=== PATIENT | male | born 1935 | race Caucasian/White ===

== ENCOUNTER → 2017-07-16 | Outpatient (CLI) | payer MEDICARE, BC ==
--- NOTE | 2017-07-16 14:11 | CT ---
EXAMINATION TYPE: CT abdomen pelvis wo con DATE OF EXAM: 07/16/2017 HISTORY: Prostate cancer CT DLP: 2186 mGycm. Automated Exposure Control for Dose Reduction was Utilized. TECHNIQUE: CT scan of the abdomen and pelvis is performed with oral but without IV contrast. COMPARISON: NONE FINDINGS: Within the limitations of a non-contrast study, the following observations are made. LUNG BASES: There is Bochdalek type diaphragmatic hernia right posterior lateral aspect seen best cor onal image 106. Superior to this there is right basilar linear scarring or atelectasis. There is part ial visualization of right-sided pacemaker wire terminating in right ventricle. There is coronary art robbin calcification is seen which is noted marker for coronary artery disease. Heart size is upper limi ts of normal. LIVER/GB: No significant abnormality is appreciated. PANCREAS: Mild fat replaced atrophy of pancreas is seen. SPLEEN: No significant abnormality is seen. ADRENALS: There is 1.7 x 1.3 cm low dense left adrenal nodule, Hounsfield units average -20. 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 KIDNEYS: There is retroaortic left renal vein which is normal variant. No renal stones or hydronephro sis is evident bilaterally. BOWEL: The oral contrast reaches level of the cecum. There is no suspicious small or large bowel dila tation there are sutures identified at level of sigmoid colon near axial image 64. There are some div erticula identified in the sigmoid colon. GENITAL ORGANS: Gold therapy seeds are seen in the prostate gland, superior one is noted along crepe laminator operator ior margin. Prostate gland is mildly prominent bulging on bladder base. No suspicious adjacent adenop athy is seen. LYMPH NODES: No greater than 1cm abdominal or pelvic lymph nodes are appreciated. OSSEOUS STRUCTURES: There is long segment surgical change in the lumbar spine with posterior interped icular rods and screws transfixing L2-S1 levels bilaterally. There is advanced disc space narrowing o r probable desired ossific fusion at these levels. Alignment is straightened in satisfactory. There i s moderate to severe multilevel anterior and lateral spurring superior to this. There is vacuum disc phenomenon with moderate disc space narrowing L1-L2 level and moderate to advanced disc space narrowi ng L5-S1 level. Posterior spinous process resection is present. No suspicious focal lytic or scleroti c lesions are clearly evident. OTHER: There is moderate to severe calcified plaque of the abdominal aorta extending into branch vess els. There is 2.0 x 1.1 cm oval calcification posterior to the liver of uncertain etiology presumed benign . IMPRESSION: No suspicious mass or adenopathy is seen to suggest metastatic disease.
--- NOTE | 2017-07-16 16:10 | NM ---
"EXAMINATION TYPE: NM bone scan whole body DATE OF EXAM: 07/16/2017 COMPARISON: CT abdomen pelvis same date HISTORY: Prostate carcinoma Delayed whole-body scanning was performed following the injection of 25.9 mCi Tc 99m MDP. Images acq uired 3 hours post injection. FINDINGS: Soft tissue uptake is normal. There is increased uptake at the upper lumbar spine which may correlate to L1-2 level. Uptake within the feet, ankles, knees, shoulders, sternoclavicular joints is likely degenerative. IMPRESSION: Uptake at the L1-2 level could be due to marked degenerative changes noted on CT, correlate to exclud e infection, discitis. Metastatic disease is not identified with certainty. A Yellow level critical message alert has been initiated for Allen Andujar MD via the [employer] | Critical Results System on 07/16/2017 4:07 PM. This message alert has been sent to Allen wilder MD via the preferences provided by the clinician for the receipt of Radiology Critical Findings. Vianey essage ID [id number]."
== END | disposition home or self-care (01) ==
LOC: RADNMMAIN 11:25
PROVIDERS: ATTEND Urology
DX: C61 Malignant neoplasm of prostate (principal)
CPT/HCPCS: 74176; 78306; A9503

== ENCOUNTER 2017-11-15 11:11 | Inpatient (IN) | payer MEDICARE, BC ==
[2017-11-15] MEDS ORDERED: ALBUTEROL NEBULIZED 2.5 MG/3 ML INHALATION STA (13:21)
[2017-11-15] MEDS ORDERED: IPRATROPIUM 0.5 MG/2.5 ML NEBU INHALATION STA (13:21)
[2017-11-15] MEDS ORDERED: DEXAMETHASONE SOD PHOSPHATE 10 MG/ML 1 ML VIAL IV STA (13:21)
--- NOTE | 2017-11-15 13:26 | ED ---
General Adult HPI - General Chief complaint: Weakness Stated complaint: Weakness, Hallucinting Time Seen by Provider: 11/15/17 13:07 Source: patient, family, RN notes reviewed, old records reviewed Mode of arrival: wheelchair Limitations: no limitations - History of Present Illness Initial comments: 82-year-old male with history of COPD, and congestive heart failure presenting with worsening cough and dyspnea. 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 According to the patient and his he's had worsening productive cough over the past 4-5 days. He did have fever yesterday. He is currently not on home oxygen. Denies central chest pain. According to patient's he had an episode yesterday of confusion which she attributes to his cough and difficulty breathing. Cough is been productive of white sputum. There is one episode of nausea and vomiting. No abdominal pain. - Related Data Home Medications Medication Instructions Recorded Confirmed Atorvastatin [Lipitor] 80 mg PO HS 07/09/14 11/15/17 Venlafaxine HCl [Effexor] 75 mg PO BID 07/09/14 11/15/17 Furosemide [Lasix] 40 mg PO DAILY 05/17/15 11/15/17 Ferrous Sulfate [Iron (65 MG 325 mg PO DAILY 08/06/15 11/15/17 Elemental)] Insulin Aspart [NovoLOG See Protocol SQ AC-TID 08/06/15 11/15/17 (formulary)] Insulin Glargine [Lantus] 40 unit SQ HS 08/06/15 11/15/17 Lisinopril [Zestril] 20 mg PO DAILY 08/06/15 11/15/17 Warfarin Sodium [Coumadin] 5 mg PO HS 08/06/15 11/15/17 amLODIPine [Norvasc] 5 mg PO BID 08/06/15 11/15/17 Albuterol Nebulized [Ventolin 2.5 mg INHALATION RT-QID 01/27/16 11/15/17 Nebulized] Budesonide-Formot 160-4.5 Mcg 2 puff INHALATION RT-BID 01/27/16 11/15/17 [Symbicort 160-4.5 Mcg Inhaler] Tamsulosin [Flomax] 0.4 mg PO DAILY 01/27/16 11/15/17 Bicalutamide [Casodex] 50 mg PO DAILY 11/15/17 11/15/17 Calcium/Vit D3 600mg/800iu 1 tab PO BID 11/15/17 11/15/17 Gabapentin [Neurontin] 300 mg PO BID 11/15/17 11/15/17 Allergies Allergy/AdvReac Type Severity Reaction Status Date / Time adhesive Allergy blisters, Verified 11/15/17 13:25 skin peels ibuprofen [From Motrin] Allergy Abdominal Verified 11/15/17 13:25 Pain Review of Systems ROS Statement: Those systems with pertinent positive or pertinent negative responses have been documented in the HPI. ROS Other: All systems not noted in ROS Statement are negative. Past Medical History Past Medical History: Cancer, COPD, Diabetes Mellitus, Hyperlipidemia, Prostate Disorder, Skin Disorder, Sleep Apnea/CPAP/BIPAP Additional Past Medical History / Comment(s): bowel perforation 2006, prostate CA, skin cancer spots removed from nose and scalp, hx migraines yr ago, see Dr Kendrick H&P, osteoarthritis, problem with kidney function 04/2015 per , uses a walker History of Any Multi-Drug Resistant Organisms: None Reported Past Surgical History: Back Surgery, Bowel Resection, Cardiac Ablation, Heart Catheterization, Orthopedic Surgery Additional Past Surgical History / Comment(s): back surgery x2 (has cage), bowel surgery for perforation with colostomy/colostomy later reversed, nasal surgery for polyps, otoniel cataracts, arthroscopy rt knee Past Anesthesia/Blood Transfusion Reactions: No Reported Reaction Past Psychological History: Depression Smoking Status: Former smoker Past Alcohol Use History: None Reported Past Drug Use History: None Reported - Past Family History Mother Family Medical History: Cancer Additional Family Medical History / Comment(s): brain Sister(s) Family Medical History: Cancer Additional Family Medical History / Comment(s): breast General Exam Limitations: no limitations General appearance: alert, in no apparent distress Head exam: Present: atraumatic, normocephalic Eye exam: Present: normal appearance, PERRL, EOMI ENT exam: Present: normal exam Neck exam: Present: normal inspection. Absent: tenderness, meningismus Respiratory exam: Present: respiratory distress, wheezes, rhonchi, decreased breath sounds Cardiovascular Exam: Present: regular rate, irregular rhythm GI/Abdominal exam: Present: soft. Absent: distended, tenderness Extremities exam: Present: normal inspection, normal capillary refill, pedal edema (trace) Neurological exam: Present: alert, oriented X3, CN II-XII intact. Absent: motor sensory deficit Psychiatric exam: Present: normal affect, normal mood Skin exam: Present: warm, dry, intact. Absent: cyanosis, diaphoretic Course Vital Signs 11/15/17 11/15/17 11/15/17 11:43 13:38 13:39 Temperature 98.8 F 99.3 F Pulse Rate 66 74 73 Respiratory 18 20 Rate Blood Pressure 149/84 137/64 O2 Sat by Pulse 96 100 Oximetry 11/15/17 14:05 Temperature Pulse Rate 76 Respiratory Rate Blood Pressure O2 Sat by Pulse Oximetry EKG Findings - EKG Comments: EKG Findings:: EKG: Wide QRS rhythm, left axis deviation, intraventricular block rate of 75, QRS duration 1:30, QTC 451. Rhythm is irregular, likely atrial fibrillation. Medical Decision Making - Medical Decision Making 82-year-old male presenting with worsening cough and dyspnea. On exam is minimal air entry, rhonchi and wheezing bilaterally. Chest x-rays obtained, negative for focal pneumonia or air space disease, normal white blood cell count , stable hemoglobin, INR is mildly supratherapeutic at 3.1, creatinine 1.5, troponin mildly elevated 0.042, with a BNP of 3120. Patient's symptoms likely related primarily to COPD, however there may be a component of congestive heart failure. He will be admitted for further treatment and evaluation. - Lab Data Result diagrams: 11/15/17 13:46 11/15/17 13:46 Lab Results 11/15/17 11/15/17 11/15/17 Range/Units 13:46 13:46 13:46 WBC 6.0 (3.8-10.6) k/uL RBC 4.25 L (4.30-5.90) m/uL Hgb 12.7 L (13.0-17.5) gm/dL Hct 38.2 L (39.0-53.0) % MCV 89.8 (80.0-100.0) fL MCH 30.0 (25.0-35.0) pg MCHC 33.4 (31.0-37.0) g/dL RDW 13.4 (11.5-15.5) % Plt Count 169 (150-450) k/uL Neutrophils % (Manual) 66 % Lymphocytes % (Manual) 13 % Monocytes % (Manual) 18 % Eosinophils % (Manual) 3 % Neutrophils # (Manual) 3.96 (1.3-7.7) k/uL Lymphocytes # (Manual) 0.78 L (1.0-4.8) k/uL Monocytes # (Manual) 1.08 H (0-1.0) k/uL Eosinophils # (Manual) 0.18 (0-0.7) k/uL Nucleated RBCs 0 (0-0) /100 WBC Manual Slide Review Performed Large Platelets Present Polychromasia Present PT (9.0-12.0) sec INR (<1.2) APTT (22.0-30.0) sec Sodium 135 L (137-145) mmol/L Potassium 4.3 (3.5-5.1) mmol/L Chloride 100 (98-107) mmol/L Carbon Dioxide 26 (22-30) mmol/L Anion Gap 9 mmol/L BUN 29 H (9-20) mg/dL Creatinine 1.50 H (0.66-1.25) mg/dL Est GFR (CKD-EPI)AfAm 50 (>60 ml/min/1.73 sqM) Est GFR (CKD-EPI)NonAf 44 (>60 ml/min/1.73 sqM) Glucose 136 H (74-99) mg/dL Plasma Lactic Acid Fabian (0.7-2.0) mmol/L Calcium 8.8 (8.4-10.2) mg/dL Magnesium 2.0 (1.6-2.3) mg/dL Total Bilirubin 0.6 (0.2-1.3) mg/dL AST 42 (17-59) U/L ALT 33 (21-72) U/L Alkaline Phosphatase 73 (38-126) U/L Total Creatine Kinase 407 H (55-170) U/L CK-MB (CK-2) 2.5 H* (0.0-2.4) ng/mL CK-MB (CK-2) Rel Index 0.6 Troponin I 0.042 H* (0.000-0.034) ng/mL NT-Pro-B Natriuret Pep pg/mL Total Protein 6.3 (6.3-8.2) g/dL Albumin 3.8 (3.5-5.0) g/dL Urine Color Urine Appearance (Clear) Urine pH (5.0-8.0) Ur Specific [place] (1.001-1.035) Urine Protein (Negative) Urine Glucose (UA) (Negative) Urine Ketones (Negative) Urine Blood (Negative) Urine Nitrite (Negative) Urine Bilirubin (Negative) Urine Urobilinogen (<2.0) mg/dL Ur Leukocyte Esterase (Negative) Urine WBC (0-5) /hpf Ur Squamous Epith Cells (0-4) /hpf Hyaline Casts (0-2) /lpf Urine Mucus (None) /hpf 11/15/17 11/15/17 11/15/17 Range/Units 13:46 13:46 13:46 WBC (3.8-10.6) k/uL RBC (4.30-5.90) m/uL Hgb (13.0-17.5) gm/dL Hct (39.0-53.0) % MCV (80.0-100.0) fL MCH (25.0-35.0) pg MCHC (31.0-37.0) g/dL RDW (11.5-15.5) % Plt Count (150-450) k/uL Neutrophils % (Manual) % Lymphocytes % (Manual) % Monocytes % (Manual) % Eosinophils % (Manual) % Neutrophils # (Manual) (1.3-7.7) k/uL Lymphocytes # (Manual) (1.0-4.8) k/uL Monocytes # (Manual) (0-1.0) k/uL Eosinophils # (Manual) (0-0.7) k/uL Nucleated RBCs (0-0) /100 WBC Manual Slide Review Large Platelets Polychromasia PT 27.5 H (9.0-12.0) sec INR 3.1 H (<1.2) APTT 46.9 H (22.0-30.0) sec Sodium (137-145) mmol/L Potassium (3.5-5.1) mmol/L Chloride (98-107) mmol/L Carbon Dioxide (22-30) mmol/L Anion Gap mmol/L BUN (9-20) mg/dL Creatinine (0.66-1.25) mg/dL Est GFR (CKD-EPI)AfAm (>60 ml/min/1.73 sqM) Est GFR (CKD-EPI)NonAf (>60 ml/min/1.73 sqM) Glucose (74-99) mg/dL Plasma Lactic Acid Fabian 1.6 (0.7-2.0) mmol/L Calcium (8.4-10.2) mg/dL Magnesium (1.6-2.3) mg/dL Total Bilirubin (0.2-1.3) mg/dL AST (17-59) U/L ALT (21-72) U/L Alkaline Phosphatase (38-126) U/L Total Creatine Kinase (55-170) U/L CK-MB (CK-2) (0.0-2.4) ng/mL CK-MB (CK-2) Rel Index Troponin I (0.000-0.034) ng/mL NT-Pro-B Natriuret Pep pg/mL Total Protein (6.3-8.2) g/dL Albumin (3.5-5.0) g/dL Urine Color Light Yellow Urine Appearance Clear (Clear) Urine pH 5.0 (5.0-8.0) Ur Specific [place] 1.009 (1.001-1.035) Urine Protein Negative (Negative) Urine Glucose (UA) Negative (Negative) Urine Ketones Negative (Negative) Urine Blood Negative (Negative) Urine Nitrite Negative (Negative) Urine Bilirubin Negative (Negative) Urine Urobilinogen <2.0 (<2.0) mg/dL Ur Leukocyte Esterase Small H (Negative) Urine WBC 1 (0-5) /hpf Ur Squamous Epith Cells 1 (0-4) /hpf Hyaline Casts 10 H (0-2) /lpf Urine Mucus Rare H (None) /hpf 11/15/17 Range/Units 13:46 WBC (3.8-10.6) k/uL RBC (4.30-5.90) m/uL Hgb (13.0-17.5) gm/dL Hct (39.0-53.0) % MCV (80.0-100.0) fL MCH (25.0-35.0) pg MCHC (31.0-37.0) g/dL RDW (11.5-15.5) % Plt Count (150-450) k/uL Neutrophils % (Manual) % Lymphocytes % (Manual) % Monocytes % (Manual) % Eosinophils % (Manual) % Neutrophils # (Manual) (1.3-7.7) k/uL Lymphocytes # (Manual) (1.0-4.8) k/uL Monocytes # (Manual) (0-1.0) k/uL Eosinophils # (Manual) (0-0.7) k/uL Nucleated RBCs (0-0) /100 WBC Manual Slide Review Large Platelets Polychromasia PT (9.0-12.0) sec INR (<1.2) APTT (22.0-30.0) sec Sodium (137-145) mmol/L Potassium (3.5-5.1) mmol/L Chloride (98-107) mmol/L Carbon Dioxide (22-30) mmol/L Anion Gap mmol/L BUN (9-20) mg/dL Creatinine (0.66-1.25) mg/dL Est GFR (CKD-EPI)AfAm (>60 ml/min/1.73 sqM) Est GFR (CKD-EPI)NonAf (>60 ml/min/1.73 sqM) Glucose (74-99) mg/dL Plasma Lactic Acid Fabian (0.7-2.0) mmol/L Calcium (8.4-10.2) mg/dL Magnesium (1.6-2.3) mg/dL Total Bilirubin (0.2-1.3) mg/dL AST (17-59) U/L ALT (21-72) U/L Alkaline Phosphatase (38-126) U/L Total Creatine Kinase (55-170) U/L CK-MB (CK-2) (0.0-2.4) ng/mL CK-MB (CK-2) Rel Index Troponin I (0.000-0.034) ng/mL NT-Pro-B Natriuret Pep 3120 pg/mL Total Protein (6.3-8.2) g/dL Albumin (3.5-5.0) g/dL Urine Color Urine Appearance (Clear) Urine pH (5.0-8.0) Ur Specific [place] (1.001-1.035) Urine Protein (Negative) Urine Glucose (UA) (Negative) Urine Ketones (Negative) Urine Blood (Negative) Urine Nitrite (Negative) Urine Bilirubin (Negative) Urine Urobilinogen (<2.0) mg/dL Ur Leukocyte Esterase (Negative) Urine WBC (0-5) /hpf Ur Squamous Epith Cells (0-4) /hpf Hyaline Casts (0-2) /lpf Urine Mucus (None) /hpf Disposition Clinical Impression: Atrial fibrillation, Acute exacerbation of chronic obstructive airways disease Disposition: ADMITTED IP TO THIS HOSP Condition: Stable Is patient prescribed a controlled substance at d/c from ED?: No Referrals: [facility],Clinic [Primary Care Provider] - 1-2 days Decision to Admit Reason: Admit from EC Decision Date: 11/15/17 Decision Time: 15:20
[2017-11-15 14:07] LABS: Appearance,Urine Clear (Clear); Bilirubin,Urine Negative (Negative); Blood,Urine Negative (Negative); Color,Urine Light Yellow; Glucose,Urine (UA) Negative (Negative); Hyaline Casts,Urine 10 /lpf (0-2); Ketones,Urine Negative (Negative); Leukocyte Esterase,Urine Small (Negative); Mucus,Urine Rare /hpf; Nitrite,Urine Negative (Negative); Protein,Urine Negative (Negative); Specific Gravity,Urine 1.009 (1.001-1.035); Squamous Epithelial Cell,Urine 1 /hpf (0-4); Urobilinogen,Urine <2.0 mg/dL (<2.0); WBC,Urine 1 /hpf (0-5)
[2017-11-15 14:08] LABS: INR 3.1 (<1.2); Partial Thromboplastin Time 46.9 sec (22.0-30.0); Prothrombin Time 27.5 sec (9.0-12.0)
[2017-11-15 14:09] LABS: HCT 38.2 % (39.0-53.0); HGB 12.7 gm/dL (13.0-17.5); MCHC 33.4 g/dL (31.0-37.0); MCV 89.8 fL (80.0-100.0); Mean Platelet Volume 8.2; Platelet Count 169 k/uL (150-450); RBC 4.25 m/uL (4.30-5.90); RDW 13.4 % (11.5-15.5)
[2017-11-15 14:10] LABS: Albumin 3.8 g/dL (3.5-5.0); Calcium 8.8 mg/dL (8.4-10.2); Potassium 4.3 mmol/L (3.5-5.1); Total Bilirubin 0.6 mg/dL (0.2-1.3); Total Protein 6.3 g/dL (6.3-8.2)
--- NOTE | 2017-11-15 14:41 | XR ---
EXAMINATION TYPE: XR chest 2V DATE OF EXAM: 11/15/2017 COMPARISON: 08/07/2015 HISTORY: Altered mental status, generalized weakness and fever. History of COPD. TECHNIQUE: Frontal and lateral views of the chest are obtained. FINDINGS: There is no focal air space opacity, pleural effusion, or pneumothorax seen. There is a si ngle lead cardiac device with mild cardiac enlargement as seen on the prior exam. The osseous struc tures are intact. Multilevel mild to moderate degenerative changes of the thoracic spine are noted. IMPRESSION: No acute cardiopulmonary process.
[2017-11-15 14:50] LABS: Eosinophils # (M) 0.18 k/uL (0-0.7); Lymphocytes # (M) 0.78 k/uL (1.0-4.8); Monocytes # (M) 1.08 k/uL (0-1.0); Neutrophils # (M) 3.96 k/uL (1.3-7.7); Neutrophils % (M) 66 %; Nucleated Red Blood Cells 0 /100 WBC (0-0); Total Cells Counted 100
[2017-11-15 14:51] LABS: Large Platelets Present; Polychromasia Present
[2017-11-15 15:14] LABS: Creatine Kinase MB 2.5 ng/mL (0.0-2.4); Troponin I 0.042 ng/mL (0.000-0.034)
[2017-11-15] MEDS ORDERED: NALOXONE 0.4 MG/ML 1 ML VIAL IV PRN (15:54)
[2017-11-15] MEDS ORDERED: ALBUTEROL NEBULIZED 2.5 MG/3 ML INHALATION PRN (15:55)
[2017-11-15] MEDS ORDERED: AZITHROMYCIN 500 MG TAB PO STA (16:00)
[2017-11-15] MEDS ORDERED: ALBUTEROL NEBULIZED 2.5 MG/3 ML INHALATION SCH (16:00)
[2017-11-15] MEDS ORDERED: IPRATROPIUM-ALBUTEROL 3 ML NEB INHALATION PRN (16:40)
[2017-11-15] MEDS ORDERED: ALPRAZolam 0.25 MG TAB PO PRN (16:41)
[2017-11-15] MEDS ORDERED: ACETAMINOPHEN TAB 500 MG TAB PO PRN (16:41)
[2017-11-15 16:57] LABS: Glucose,Whole Blood 156 mg/dL (75-99)
[2017-11-15] MEDS ORDERED: FUROSEMIDE 10 MG/ML 2 ML VIAL IV ONE (17:00)
[2017-11-15] MEDS: INSULIN ASPART 100 UNIT/ML 1 ML 10 ML VIAL SQ SCH ×3 (17:04→21:13)
--- NOTE | 2017-11-15 17:52 | HP ---
HISTORY AND PHYSICAL CHIEF COMPLAINT: Shortness of breath. HISTORY OF PRESENT ILLNESS: This 82-year-old gentleman with a past medical history of multiple medical problems including COPD, history of diabetes, hyperlipidemia, history of sleep apnea, bowel perforation, history of prostate cancer being followed by Dr. Britt in the outpatient setting is complaining of shortness of breath over the past several days. Initially patient had cough since last week, which was rather productive and subsequently yesterday the patient fever and because of increasing difficulty, the patient came to [facility] and admitted of further evaluation and treatment. There is no headache, loss of conscious, seizures. The patient was currently not on home O2. The patient also feeling slightly drowsy at this time. The sputum was white in color. The patient admitted for evaluation and treatment. A chest x-ray which was reviewed personally showed no acute abnormalities. Minimal fluid overload suspected. PAST MEDICAL HISTORY: History of COPD, diabetes, hyperlipidemia, history of sleep apnea, bowel perforation, prostate cancer, back surgery. MEDICATIONS: Home medications are at this time reviewed and include: 1. Norvasc 5 mg p.o. b.i.d. 2. Coumadin 5 mg q.h.s. 3. Effexor 75 mg p.o. b.i.d. 4. Flomax 0.4. 5. Zestril 20 mg daily. 6. Lantus 40 units subcu q.h.s. 7. NovoLog t.i.d. 8. Neurontin 300 mg b.i.d. 9. Lasix 40 mg daily. 10.Iron 320 mg p.o. daily. 11.Calcium with vitamin D 1 tab p.o. b.i.d. 12.Symbicort 160/4.5 two puffs b.i.d.\. 13.Casodex 50 mg p.o. daily. 14.Lipitor 80 mg q.h.s. 15.Ventolin nebulized 2.5 q.i.d. ALLERGIES: IBUPROFEN. FAMILY HISTORY: History of brain cancer in the family. SOCIAL HISTORY: Previous history of smoking. No history of current smoking or alcohol intake. REVIEW OF SYSTEMS: Could not be taken. The patient is slightly drowsy. PHYSICAL EXAM: Pulse is 68, blood pressure 120/69, respiration 20, temperature 98.7, pulse ox 98% 2 L. Breathing efforts are increased. HEENT: Conjunctivae normal. Oral mucosa moist. NECK: No jugular venous distention. No carotid bruit. No lymph node enlargement. CARDIOVASCULAR: S1, S2. No S3, no S4. RESPIRATORY: Breath sounds diminished in the bases. Bilateral scattered rhonchi and crackles. Expiratory wheezing and prolonged respiration also present. ABDOMEN: Soft, nontender. No mass palpable. LEGS: No edema, no swelling. NERVOUS SYSTEM: Higher functions as mentioned earlier. Moves all four limbs. No focal motor deficits. LYMPHATICS: No lymphadenopathy in the neck, axillae, groin. SKIN: No ulcer, rash, bleeding. LABS: WBC 6, hemoglobin 12.7. INR 3.1. Sodium 135, creatinine is 1.50. Troponin 0.042. BNP is 3120. ASSESSMENT: 1. Chronic obstructive pulmonary disease acute exacerbation with acute tracheobronchitis without any michelle evidence of pneumonia. 2. Rule out congestive heart failure acute exacerbation. 3. Increased creatinine with chronic kidney disease stage III. 4. Sleep apnea on BiPAP at home. 5. Hyponatremia. 6. History of chronic obstructive pulmonary disease. 7. Diabetes type 2. 8. Hyperlipidemia. 9. History of sleep apnea. 10.Bowel perforation. 11.History of prostate cancer. 12.History of migraine. 13.History of degenerative joint disease. 14.History of cardiac ablation. 15.History of depression. 16.History of nicotine dependence. 17.Chronic atrial fibrillation. RECOMMENDATION AND DISCUSSION: This 82-year-old gentleman who presented with multiple complex medical issues, we will monitor the patient closely. Continue the current management and symptomatic treatment. Will optimize bronchodilator treatment, IV steroids and also I would also recommend to monitor blood sugars closely. I would also recommend IV Lasix as well. We will monitor the PT/INR. Hold Coumadin if INR is more than 3. Otherwise guarded prognosis because of multiple complex medical issues. Further recommendations to follow. See orders. Will consult Dr. Quiroga also. MMODL / IJN: [id number] / MTDD
[2017-11-15] MEDS: methylPREDNISolone SOD SUCCI 125 MG/2 ML VIAL IV SCH ×2 (18:44→22:51)
[2017-11-15] MEDS: IPRATROPIUM-ALBUTEROL 3 ML NEB INHALATION SCH (20:38)
[2017-11-15] MEDS: BUDESONIDE 1 MG/2 ML NEBU INHALATION SCH (20:38)
[2017-11-15] MEDS: FORMOTEROL FUMARATE 20 MCG/2 ML NEBU INHALATION SCH (20:38)
[2017-11-15] MEDS: cefTRIAXone IN SWFI 1,000 MG/10 ML SYRINGE IVP SCH (20:54)
[2017-11-15] MEDS ORDERED: INSULIN DETEMIR 100 UNIT/ML 10 ML VIAL SQ SCH (21:00)
[2017-11-15 21:02] LABS: Glucose,Whole Blood 230 mg/dL (75-99)
[2017-11-15] MEDS: amLODIPine 5 MG TAB PO SCH (21:12)
[2017-11-15] MEDS: ATORVASTATIN 80 MG TAB PO SCH (21:12)
[2017-11-15] MEDS: GABAPENTIN 300 MG CAP PO SCH (21:12)
[2017-11-15] MEDS: CALCIUM CARB-VIT D 500MG-200UN 1 EACH TAB PO SCH (21:12)
[2017-11-15] MEDS: WARFARIN 5 MG TAB PO SCH (21:13)
[2017-11-15] MEDS: MELATONIN 3 MG TABLET PO SCH (21:13)
[2017-11-15 21:22] LABS: Creatine Kinase MB 2.3 ng/mL (0.0-2.4)
[2017-11-15 21:26] LABS: Troponin I 0.037 ng/mL (0.000-0.034)
[2017-11-15] MEDS: VENLAFAXINE HCL 75 MG TAB PO SCH (21:43)
[2017-11-16 02:54] LABS: Creatine Kinase MB 2.2 ng/mL (0.0-2.4); Troponin I 0.029 ng/mL (0.000-0.034)
[2017-11-16 04:28] LABS: Hemoglobin A1C 7.1 % (4.0-6.0)
[2017-11-16 06:10] LABS: Glucose,Whole Blood 313 mg/dL (75-99)
[2017-11-16 06:49] LABS: Basophils % (A) 0 %; Eosinophils % (A) 0 %; HCT 38.7 % (39.0-53.0); HGB 12.5 gm/dL (13.0-17.5); Lymphocytes # (A) 0.6 k/uL (1.0-4.8); Lymphocytes % (A) 14 %; MCH 29.2 pg (25.0-35.0); MCHC 32.4 g/dL (31.0-37.0); MCV 90.3 fL (80.0-100.0); Mean Platelet Volume 8.7; Monocytes # (A) 0.1 k/uL (0-1.0); Monocytes % (A) 3 %; Neutrophils # (A) 3.5 k/uL (1.3-7.7); Neutrophils % (A) 81 %; Platelet Count 191 k/uL (150-450); RBC 4.29 m/uL (4.30-5.90); RDW 13.2 % (11.5-15.5); WBC 4.4 k/uL (3.8-10.6)
[2017-11-16 07:07] LABS: INR 3.3 (<1.2); Prothrombin Time 29.2 sec (9.0-12.0)
[2017-11-16] MEDS: PANTOPRAZOLE 40 MG TABLET PO SCH (07:07)
[2017-11-16] MEDS: INSULIN ASPART 100 UNIT/ML 1 ML 10 ML VIAL SQ SCH ×7 (07:07→20:44)
[2017-11-16 07:11] LABS: Calcium 8.8 mg/dL (8.4-10.2); Potassium 4.5 mmol/L (3.5-5.1)
[2017-11-16] MEDS ORDERED: INSULIN DETEMIR 100 UNIT/ML 10 ML VIAL SQ SCH (07:19)
[2017-11-16] MEDS: methylPREDNISolone SOD SUCCI 125 MG/2 ML VIAL IV SCH ×3 (08:13→22:49)
[2017-11-16] MEDS: MULTIVITAMINS, THERA 1 EACH TAB PO SCH (08:13)
[2017-11-16] MEDS: GABAPENTIN 300 MG CAP PO SCH ×2 (08:13→20:45)
[2017-11-16] MEDS: LISINOPRIL 20 MG TAB PO SCH (08:13)
[2017-11-16] MEDS: CALCIUM CARB-VIT D 500MG-200UN 1 EACH TAB PO SCH ×2 (08:13→20:45)
[2017-11-16] MEDS: TAMSULOSIN 0.4 MG CAP.ER.24H PO SCH (08:13)
[2017-11-16] MEDS: VENLAFAXINE HCL 75 MG TAB PO SCH ×2 (08:13→20:45)
[2017-11-16] MEDS: BICALUTAMIDE 50 MG TAB PO SCH (08:13)
[2017-11-16] MEDS: amLODIPine 5 MG TAB PO SCH ×2 (08:13→20:44)
[2017-11-16] MEDS: FERROUS SULFATE 325 MG TAB PO SCH (08:13)
[2017-11-16] MEDS: AZITHROMYCIN 500 MG TAB PO SCH (08:13)
[2017-11-16] MEDS: FORMOTEROL FUMARATE 20 MCG/2 ML NEBU INHALATION SCH ×2 (08:14→20:39)
[2017-11-16] MEDS: IPRATROPIUM-ALBUTEROL 3 ML NEB INHALATION SCH ×4 (08:14→20:39)
[2017-11-16] MEDS: BUDESONIDE 1 MG/2 ML NEBU INHALATION SCH ×2 (08:14→20:39)
[2017-11-16] MEDS ORDERED: FUROSEMIDE 10 MG/ML 4 ML VIAL IV SCH (09:00)
--- NOTE | 2017-11-16 11:24 | P.CNPUL ---
History of Present Illness Consult date: 11/16/17 Requesting physician: Pratibha Rivero Reason for consult: dyspnea Chief complaint: Shortness of breath, cough, congestion History of present illness: This is a very pleasant 82-year-old gentleman who follows with Dr. Britt in the [facility] as his primary care providers. He has a history of hypertension, congestive heart failure, hyperlipidemia, diabetes mellitus, Hussein's palsy, atrial fibrillation status post permanent pacemaker implantation anticoagulated with warfarin, prostate cancer. He also has a history of obstructive sleep apnea utilizing the BiPAP machine 01/04 and chronic obstructive pulmonary disease with an FEV1 value of 79% of predicted and is on Symbicort and albuterol and he follows with Dr. Roth in our office for the same. He was seen there yesterday with worsening shortness of breath, fever, diarrhea and confusion. He was referred to the emergency room. His chest x-ray showed no acute cardiopulmonary process. Labs revealed the BBC 4.4. Hemoglobin 12.5. INR 3.3. Creatinine 1.50. BNP 3120. Troponin 0.037, 0.029. He is seen today in consultation on the selective care unit. He is awake and alert in no acute distress. He is continuing with a loose nonproductive cough. No recent fever or chills. He is maintaining good O2 saturations in the upper 90s on 2 L/m per nasal cannula. He's been hemodynamically stable. Utilizing his home BiPAP. He 's been initiated on antibiotics in the form of ceftriaxone and azithromycin. Review of Systems Constitutional: Reports chills, Reports poor appetite, Reports weakness Eyes: denies blurred vision, denies decreased vision Ears: bilateral: decreased hearing Ears, nose, mouth and throat: Reports nasal congestion Cardiovascular: Reports decreased exercise tolerance, Reports dyspnea on exertion, Reports irregular heart beat, Reports shortness of breath Respiratory: Reports congestion, Reports cough, Reports dyspnea, Reports sleep apnea Gastrointestinal: Denies abdominal pain, Denies diarrhea, Denies nausea, Denies vomiting Genitourinary: Reports as per HPI Musculoskeletal: Denies myalgias Integumentary: Denies pruritus, Denies rash Neurological: Reports as per HPI, Reports change in mentation, Denies numbness, Denies weakness Psychiatric: Denies anxiety, Denies depression Endocrine: Denies fatigue, Denies weight change Hematologic/Lymphatic: Reports as per HPI Allergic/Immunologic: Reports as per HPI Past Medical History Past Medical History: Atrial Fibrillation, Cancer, COPD, Diabetes Mellitus, Hyperlipidemia, Pneumonia, Prostate Disorder, Skin Disorder, Sleep Apnea/CPAP/ BIPAP Additional Past Medical History / Comment(s): bowel perforation 2006, prostate CA, skin cancer spots removed from nose and scalp, hx migraines yr ago, atrial fibrillation status post pacemaker implantation, osteoarthritis, past problem with kidney function , pt state he had a pne vaccine but not sure of date, 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 History of Any Multi-Drug Resistant Organisms: None Reported Past Surgical History: Back Surgery, Bowel Resection, Cardiac Ablation, Heart Catheterization, Orthopedic Surgery, Pacemaker Additional Past Surgical History / Comment(s): back surgery x2 (has cage), bowel surgery for perforation with colostomy/colostomy later reversed, nasal surgery for polyps, otoniel cataracts, arthroscopy rt knee Past Anesthesia/Blood Transfusion Reactions: No Reported Reaction Type of Cardiac Device: Permanent Pacemaker Device Placement Date:: 2013 Smoking Status: Former smoker - Past Family History Mother Family Medical History: Cancer Additional Family Medical History / Comment(s): brain Sister(s) Family Medical History: Cancer Additional Family Medical History / Comment(s): breast Medications and Allergies Home Medications Medication Instructions Recorded Confirmed Type Atorvastatin [Lipitor] 80 mg PO HS 07/09/14 11/15/17 History Venlafaxine HCl [Effexor] 75 mg PO BID 07/09/14 11/15/17 History Furosemide [Lasix] 40 mg PO DAILY 05/17/15 11/15/17 History Ferrous Sulfate [Iron (65 MG 325 mg PO DAILY 08/06/15 11/15/17 History Elemental)] Insulin Aspart [NovoLOG See Protocol SQ AC-TID 08/06/15 11/15/17 History (formulary)] Insulin Glargine [Lantus] 40 unit SQ HS 08/06/15 11/15/17 History Lisinopril [Zestril] 20 mg PO DAILY 08/06/15 11/15/17 History Warfarin Sodium [Coumadin] 5 mg PO HS 08/06/15 11/15/17 History amLODIPine [Norvasc] 5 mg PO BID 08/06/15 11/15/17 History Albuterol Nebulized [Ventolin 2.5 mg INHALATION RT-QID 01/27/16 11/15/17 History Nebulized] Budesonide-Formot 160-4.5 Mcg 2 puff INHALATION RT-BID 01/27/16 11/15/17 History [Symbicort 160-4.5 Mcg Inhaler] Tamsulosin [Flomax] 0.4 mg PO DAILY 01/27/16 11/15/17 History Bicalutamide [Casodex] 50 mg PO DAILY 11/15/17 11/15/17 History Calcium/Vit D3 600mg/800iu 1 tab PO BID 11/15/17 11/15/17 History Gabapentin [Neurontin] 300 mg PO BID 11/15/17 11/15/17 History Allergies Allergy/AdvReac Type Severity Reaction Status Date / Time adhesive Allergy blisters, Verified 11/15/17 13:25 skin peels ibuprofen [From Motrin] Allergy Abdominal Verified 11/15/17 13:25 Pain Physical Exam Vitals: Vital Signs Temp Pulse Pulse Resp BP BP Pulse Ox 11/16/17 08:34 66 18 11/16/17 08:24 68 18 11/16/17 08:14 68 18 98 11/16/17 08:13 96.9 F L 62 20 132/59 98 11/16/17 04:00 97.6 F 60 18 126/71 97 11/16/17 00:00 97.0 F L 68 18 119/62 98 11/15/17 21:02 64 11/15/17 20:50 62 11/15/17 20:49 62 11/15/17 20:40 62 11/15/17 20:00 97.7 F 68 18 138/70 96 11/15/17 18:40 97.6 F 59 L 18 135/49 94 L 11/15/17 18:21 98.0 F 89 16 103/49 96 11/15/17 16:27 98.7 F 68 20 127/69 98 11/15/17 14:05 76 11/15/17 13:39 73 11/15/17 13:38 99.3 F 74 20 137/64 100 11/15/17 11:43 98.8 F 66 18 149/84 96 Intake and Output 11/15/17 11/16/17 11/16/17 22:59 06:59 14:59 Intake Total 120 10 120 Balance 120 10 120 Intake: IV 10 0.9 10 Oral 120 120 Other: Voiding Method Toilet Toilet Toilet Weight 102.5 kg - Constitutional General appearance: cooperative, mild distress, morbidly obese - EENT Eyes: EOMI, PERRLA ENT: hard of hearing Ears: bilateral: normal - Neck Neck: normal ROM Carotids: bilateral: upstroke normal Thyroid: bilateral: normal size - Respiratory Respiratory: bilateral: rhonchi, wheezing - Cardiovascular Rhythm: irregularly irregular Heart sounds: normal: S1, S2 - Gastrointestinal General gastrointestinal: normal bowel sounds - Integumentary Integumentary: normal turgor - Neurologic Neurologic: CNII-XII intact - Musculoskeletal Musculoskeletal: generalized weakness - Psychiatric Psychiatric: A&O x's 3, appropriate affect, intact judgment & insight Results - Laboratory Findings CBC and BMP: 11/16/17 06:09 11/16/17 06:09 PT/INR, D-dimer PT 29.2 sec (9.0-12.0) H 11/16/17 06:09 INR 3.3 (<1.2) H 11/16/17 06:09 Abnormal lab findings: Abnormal Labs 11/15/17 11/15/17 11/15/17 13:46 13:46 13:46 RBC 4.25 L Hgb 12.7 L Hct 38.2 L Lymphocytes # Lymphocytes # (Manual) 0.78 L Monocytes # (Manual) 1.08 H PT INR APTT Sodium 135 L BUN 29 H Creatinine 1.50 H Glucose 136 H POC Glucose (mg/dL) Hemoglobin A1c Total Creatine Kinase 407 H CK-MB (CK-2) 2.5 H* Troponin I 0.042 H* Ur Leukocyte Esterase Hyaline Casts Urine Mucus 11/15/17 11/15/17 11/15/17 13:46 13:46 16:53 RBC Hgb Hct Lymphocytes # Lymphocytes # (Manual) Monocytes # (Manual) PT 27.5 H INR 3.1 H APTT 46.9 H Sodium BUN Creatinine Glucose POC Glucose (mg/dL) 156 H Hemoglobin A1c Total Creatine Kinase CK-MB (CK-2) Troponin I Ur Leukocyte Esterase Small H Hyaline Casts 10 H Urine Mucus Rare H 11/15/17 11/15/17 11/15/17 20:13 20:13 21:01 RBC Hgb Hct Lymphocytes # Lymphocytes # (Manual) Monocytes # (Manual) PT INR APTT Sodium BUN Creatinine Glucose POC Glucose (mg/dL) 230 H Hemoglobin A1c 7.1 H Total Creatine Kinase 402 H CK-MB (CK-2) Troponin I 0.037 H* Ur Leukocyte Esterase Hyaline Casts Urine Mucus 11/16/17 11/16/17 11/16/17 01:53 06:09 06:09 RBC 4.29 L Hgb 12.5 L Hct 38.7 L Lymphocytes # 0.6 L Lymphocytes # (Manual) Monocytes # (Manual) PT 29.2 H INR 3.3 H APTT Sodium BUN Creatinine Glucose POC Glucose (mg/dL) Hemoglobin A1c Total Creatine Kinase 322 H CK-MB (CK-2) Troponin I Ur Leukocyte Esterase Hyaline Casts Urine Mucus 11/16/17 11/16/17 06:09 06:09 RBC Hgb Hct Lymphocytes # Lymphocytes # (Manual) Monocytes # (Manual) PT INR APTT Sodium 135 L BUN 38 H Creatinine 1.50 H Glucose 318 H POC Glucose (mg/dL) 313 H Hemoglobin A1c Total Creatine Kinase CK-MB (CK-2) Troponin I Ur Leukocyte Esterase Hyaline Casts Urine Mucus - Diagnostic Findings Chest x-ray: image reviewed Assessment and Plan Assessment: Impression: #1 Acute hypoxic respiratory failure secondary to an acute exacerbation of chronic obstructive pulmonary disease, complicated by purulent tracheobronchitis and possible early pneumonia, suspect acute exacerbation of diastolic congestive heart failure with previous preserved left ventricular systolic function ejection fraction 60-65%. #2 Obstructive sleep apnea utilizing home BiPAP. #3 Acute on chronic renal failure. #4 Atrial fibrillation status post permanent pacemaker implantation, anticoagulated with warfarin. #5 Hypertension. #6 Hyperlipidemia. #7 Diabetes mellitus, with steroid-induced hyperglycemia. #8 History of prostate cancer. #9 History of bowel resection. Plan: The patient was seen and evaluated by Dr. Quiroga. Chest x-ray and labs were reviewed. No clear evidence of pneumonia at this time. Possible early pneumonia versus COPD exacerbation with purulent tracheobronchitis. We'll continue with his current medications including antibiotics in the form of ceftriaxone and azithromycin, IV Solu-Medrol, bronchodilators. Anticoagulated with warfarin. Protonix for GI prophylaxis. We will increase his activity as tolerated. We will continue to follow and make further recommendations based on his clinical status. I, the cosigning physician, performed a history & physical examination of the patient. Lungs sounds with few scattered rhonchi, bilateral end expiratory wheeze. Maintaining good O2 saturations in the 90s on 2 L/m per nasal cannula. I discussed the assessment and plan of care with my nurse practitioner, Sanjana Ruiz. I attest to the above consultation as dictated by her. Time with Patient: Greater than 30
[2017-11-16 11:29] VITALS: BMI 33.3
--- NOTE | 2017-11-16 11:53 | CONS ---
CONSULTATION Mr. Salvador is an 82-year-old male with a history of atrial fibrillation, history of mild to moderate coronary artery disease by cardiac catheterization in 2009, history of chronic obstructive lung disease, who presented with symptoms of progressive dyspnea. He has been having cough and dyspnea for the last few days and because of that, came into the emergency room and subsequently admitted. He denies any chest pain. He denies any dizziness, palpitation He denies any PND nor orthopnea. He has underwent permanent pacemaker implantation in July 2015 and his left ventricular systolic function in the past was normal. He has underwent the cardiac catheterization as noted in 2009, but he had no evidence of high-grade stenosis and his left ventricular systolic function has been preserved in the past, but he had evidence of pulmonary hypertension. His most recent myocardial perfusion imaging was in 2013 and at that time there was no evidence of significant obstructive coronary disease. He has a history of pulmonary fibrosis as well as obstructive sleep apnea. He denies any peripheral edema, no clear PND. No orthopnea. No syncope. MEDICATION: At home includes amlodipine 5 mg twice a day, Coumadin, Effexor, Flomax, Zestril 20 mg daily, insulin, gabapentin, Lasix 40 mg daily, iron, Symbicort, Casodex, Lipitor 80 mg daily, and Ventolin. REVIEW OF SYSTEMS: RESPIRATORY SYSTEM: He has dyspnea on exertion, history of chronic obstructive lung disease. GI SYSTEM: No recent GI bleed. No peptic ulcer disease. SYSTEM: He had hematuria that resolved. NERVOUS SYSTEM: No history of stroke or seizure. According to the , he had a low- grade fever at home on Wednesday. PHYSICAL EXAMINATION: He is a 82-year-old male, alert, oriented, in no apparent distress. Blood pressure 132/59 with a heart rate in the 60s. HEAD: Normocephalic. EYES: Sclerae nonicteric. NECK: Good upstroke, no bruit, no chest tension. LUNGS: With decreased air exchange bilaterally with a few scattered rhonchi, no wheezes. HEART: Irregular, irregular. S1, S2. No S3 with a systolic murmur, ejection type heard at the base. No diastolic murmur, no rub. ABDOMEN: Soft, nontender, obese. Positive bowel sounds, no organomegaly. EXTREMITIES: No significant edema. LAB DATA: Revealed a BUN and creatinine of 35 and 1.5, which has worsened since 2016, which is the last lab tests I have. Hemoglobin of 12.5. INR of 3.1. His troponin 0.042, 0.037, 0.029. His NT proBNP is 3120. His EKG revealed atrial fibrillation with evidence of paced rhythm and nonspecific ST-T wave changes. His chest x-ray revealed no acute infiltrate. IMPRESSION: 1. Exacerbation of chronic obstructive pulmonary disease in a patient with known history of chronic obstructive lung disease and pulmonary fibrosis. 2. History of persistent atrial fibrillation, anticoagulated. 3. Status post permanent pacemaker implantation. 4. Mild troponin elevation most likely a present type 2 event. 5. Mild elevation of the NT proBNP with no evidence of congestive heart failure. 6. Renal failure, worsened compared to 2016. 7. History of hyperlipidemia. RECOMMENDATION: From the cardiac standpoint, I do not believe we are dealing with an acute coronary artery syndrome. Patient has been started on antibiotics and treatment for his COPD. I will stop his IV Lasix. I will follow his renal function. Will continue anticoagulation. I will obtain echocardiogram with Doppler to further evaluate his cardiac status and depending on his progress, further recommendation will be made. Thank you for this consult. Will follow with you. MMODL / IJN: [id number] /
[2017-11-16 11:59] LABS: Glucose,Whole Blood 164 mg/dL (75-99)
--- NOTE | 2017-11-16 13:29 | PN ---
PROGRESS NOTE DATE OF SERVICE: 11/16/2017 This 82-year-old gentleman who was admitted with COPD acute exacerbation with acute purulent tracheobronchitis without any michelle evidence of pneumonia is being closely monitored. The patient has less significant shortness of breath and cough. Cardiology and Pulmonology are following the patient closely. The patient is on broad-spectrum IV antibiotics. The troponin is 0.037. 0.029 and BNP is 3120. The chest x-ray which was reviewed personally by me showed evidence of COPD. PAST MEDICAL HISTORY: Reviewed. REVIEW OF SYSTEMS: CARDIOVASCULAR: As mentioned earlier. RESPIRATORY: As mentioned earlier. GI: No nausea. : No dysuria. NERVOUS SYSTEM: No numbness or weakness. MEDICATIONS: Current medications are: 1. Tylenol 500 mg q.6 p.r.n. 2. DuoNeb q.i.d. and p.r.n. 3. Xanax 0.25 t.i.d. 4. Norvasc 5 mg p.o. b.i.d. 5. Lipitor 80 mg at bedtime. 6. Zithromax 500 mg p.o. daily. 7. Casodex 50 mg p.o. daily. 8. Pulmicort 1 mg b.i.d. 9. Os-Salvador with vitamin D 1 p.o. b.i.d. 10.Rocephin 1 gram daily. 11.Iron sulfate 325 mg daily. 12.Perforomist 20 mcg b.i.d. 13.Lasix 40 mg p.o. daily. 14.Neurontin 300 mg p.o. b.i.d. 15.NovoLog 10 units a.c. t.i.d. 16.NovoLog to scale. 17.Levemir 40 units subcutaneously at bedtime. 18.Zestril 20 mg p.o. daily. 19.Melatonin 3 mg at bedtime. 20.Solu-Medrol 60 IV q.8. 21.Multivitamins. 22.Narcan p.r.n. 23.Protonix 40 mg daily. 24.Flomax 0.4. 25.Effexor XR 75 mg p.o. b.i.d. 26.Coumadin 5 mg at bedtime. PHYSICAL EXAMINATION: Patient is alert and oriented x3. Pulse 62, blood pressure 110/48, respiration 18, temperature 97.2, pulse ox 94% on 2 L. HEENT: Conjunctivae normal. Oral mucosa moist. NECK: No jugular venous distention. No carotid bruits. No lymph node enlargement. CARDIOVASCULAR: S1 and S2 muffled. RESPIRATORY: Breath sounds diminished at the bases. Bilateral scattered rhonchi and crackles. ABDOMEN: Soft, obese, nontender. LEGS: No edema, no swelling. NERVOUS SYSTEM: Higher functions as mentioned earlier. Moves all 4 limbs. No focal deficits. LYMPHATICS: No lymphadenopathy of the neck, axillae or groin. SKIN: No ulcer, rash or bleeding. LAB STUDIES: WBC 4.2, hemoglobin 12.5. Glucose 164. ASSESSMENT: 1. Chronic obstructive pulmonary disease acute exacerbation with acute purulent tracheobronchitis without any evidence of michelle pneumonia. 2. Increased creatinine with chronic kidney disease stage III. 3. Sleep apnea, on BiPAP at home. 4. Hyponatremia. 5. History of chronic obstructive pulmonary disease. 6. Diabetes mellitus type 2. 7. Hyperlipidemia. 8. History of sleep apnea. 9. History of bowel perforation. 10.History of prostate cancer. 11.History of migraines. 12.History of degenerative joint disease. 13.History of cardiac ablation. 14.History of depression. 15.History of nicotine dependence. 16.Chronic atrial fibrillation. 17.Obesity with body mass index 33.4. 18.FULL CODE. RECOMMENDATIONS AND DISCUSSION: This 82-year-old gentleman presented with multiple complex medical issues, we will monitor the patient closely continue the current medications, continue symptomatic treatment. Continue the broad-spectrum IV antibiotics. I would also recommend Rocephin, Zithromax, bronchodilators, steroids. Monitor blood sugars closely. Continue the current medications. The patient is also on a small dose of Lasix as well. Continue to follow. Hold Coumadin if the INR more than 3. Prognosis guarded because of multiple complex medical issues. Further recommendations to follow. MMODL / IJN: [id number] /
[2017-11-16 16:26] LABS: Glucose,Whole Blood 273 mg/dL (75-99)
[2017-11-16] MEDS: cefTRIAXone IN SWFI 1,000 MG/10 ML SYRINGE IVP SCH (18:10)
[2017-11-16 20:28] LABS: Glucose,Whole Blood 269 mg/dL (75-99)
[2017-11-16] MEDS: ATORVASTATIN 80 MG TAB PO SCH (20:44)
[2017-11-16] MEDS: WARFARIN 5 MG TAB PO SCH (20:45)
[2017-11-16] MEDS: MELATONIN 3 MG TABLET PO SCH (20:45)
[2017-11-17 05:47] LABS: Glucose,Whole Blood 287 mg/dL (75-99)
[2017-11-17] MEDS: INSULIN ASPART 100 UNIT/ML 1 ML 10 ML VIAL SQ SCH ×7 (06:39→22:01)
[2017-11-17] MEDS: PANTOPRAZOLE 40 MG TABLET PO SCH (06:39)
[2017-11-17 06:54] LABS: Basophils % (A) 0 %; Eosinophils % (A) 0 %; HCT 33.7 % (39.0-53.0); HGB 11.2 gm/dL (13.0-17.5); Lymphocytes # (A) 0.6 k/uL (1.0-4.8); Lymphocytes % (A) 8 %; MCH 29.4 pg (25.0-35.0); MCHC 33.1 g/dL (31.0-37.0); MCV 88.8 fL (80.0-100.0); Monocytes # (A) 0.2 k/uL (0-1.0); Monocytes % (A) 3 %; Neutrophils # (A) 6.6 k/uL (1.3-7.7); Neutrophils % (A) 88 %; Platelet Count 201 k/uL (150-450); RDW 13.2 % (11.5-15.5); WBC 7.5 k/uL (3.8-10.6)
[2017-11-17 07:04] LABS: INR 3.5 (<1.2); Prothrombin Time 31.1 sec (9.0-12.0)
[2017-11-17 07:52] LABS: Calcium 8.8 mg/dL (8.4-10.2); Potassium 4.3 mmol/L (3.5-5.1)
[2017-11-17] MEDS: CALCIUM CARB-VIT D 500MG-200UN 1 EACH TAB PO SCH ×2 (09:24→22:00)
[2017-11-17] MEDS: LISINOPRIL 20 MG TAB PO SCH (09:24)
[2017-11-17] MEDS: AZITHROMYCIN 500 MG TAB PO SCH (09:24)
[2017-11-17] MEDS: BICALUTAMIDE 50 MG TAB PO SCH (09:24)
[2017-11-17] MEDS: FERROUS SULFATE 325 MG TAB PO SCH (09:24)
[2017-11-17] MEDS: VENLAFAXINE HCL 75 MG TAB PO SCH ×2 (09:24→22:01)
[2017-11-17] MEDS: TAMSULOSIN 0.4 MG CAP.ER.24H PO SCH (09:24)
[2017-11-17] MEDS: GABAPENTIN 300 MG CAP PO SCH ×2 (09:24→22:01)
[2017-11-17] MEDS: amLODIPine 5 MG TAB PO SCH ×2 (09:24→22:00)
[2017-11-17] MEDS: FUROSEMIDE 40 MG TAB PO SCH (09:24)
[2017-11-17] MEDS: FORMOTEROL FUMARATE 20 MCG/2 ML NEBU INHALATION SCH ×2 (09:27→19:51)
[2017-11-17] MEDS: BUDESONIDE 1 MG/2 ML NEBU INHALATION SCH ×2 (09:27→19:51)
[2017-11-17] MEDS: IPRATROPIUM-ALBUTEROL 3 ML NEB INHALATION SCH ×4 (09:27→19:51)
[2017-11-17] MEDS: methylPREDNISolone SOD SUCCI 125 MG/2 ML VIAL IV SCH ×3 (09:31→22:44)
[2017-11-17 11:35] LABS: Glucose,Whole Blood 310 mg/dL (75-99)
--- NOTE | 2017-11-17 11:44 | ECHOF ---
Referral Reason:afib MEASUREMENTS -------- HEIGHT: 175.3 cm WEIGHT: 102.1 kg BP: 132/59 RVIDd: 3.7 cm (< 3.3) IVSd: 1.1 cm (0.6 - 1.1) LVIDd: 4.4 cm (3.9 - 5.3) LVPWd: 1.5 cm (0.6 - 1.1) IVSs: 1.9 cm LVIDs: 2.2 cm LVPWs: 1.7 cm LAESV Index (A-L): 50.41 ml/m Ao Diam: 3.1 cm (2.0 - 3.7) AV Cusp: 1.1 cm (1.5 - 2.6) LA Diam: 5.6 cm (2.7 - 3.8) MV EXCURSION: 24.599 mm (> 18.000) MV EF SLOPE: 78 mm/s (70 - 150) EPSS: 1.0 cm MV E Reyes: 1.17 m/s MV DecT: 295 ms MV A Reyes: 0.29 m/s MV E/A Ratio: 4.02 AV maxP.33 mmHg AV meanP.26 mmHg RAP: 5.00 mmHg RVSP: 18.74 mmHg FINDINGS -------- Paced rhythm. This was a technically adequate study. The left ventricular size is normal. There is mild concentric left ventricular hypertrophy. Overa ll left ventricular systolic function is normal with, an EF between 55 - 60 %. The right ventricle is mildly enlarged. LA is severely dilated >40 ml/m2 The right atrium is normal in size. Aortic valve is trileaflet and is mildly thickened. There is mild aortic stenosis present. Peak/m maritza gradient across the Aortic Valve is 19.33mmHg / 10.26mmHg. [id number] mitral regurgitation is present. Trace tricuspid regurgitation present. The right ventricular systolic pressure, as measured by Dopp ler, is 18.74mmHg. Pulmonic valve appears structurally normal. The aortic root size is normal. The pericardium is normal. CONCLUSIONS -------- 1. Paced rhythm. 2. This was a technically adequate study. 3. The left ventricular size is normal. 4. There is mild concentric left ventricular hypertrophy. 5. Overall left ventricular systolic function is normal with, an EF between 55 - 60 %. 6. The right ventricle is mildly enlarged. 7. LA is severely dilated >40 ml/m2 8. The right atrium is normal in size. 9. Aortic valve is trileaflet and is mildly thickened. 10. There is mild aortic stenosis present. 11. Peak/mean gradient across the Aortic Valve is 19.33mmHg / 10.26mmHg. 12. [id number] mitral regurgitation is present. 13. Trace tricuspid regurgitation present. 14. The right ventricular systolic pressure, as measured by Doppler, is 18.74mmHg. 15. Pulmonic valve appears structurally normal. 16. The aortic root size is normal. 17. The pericardium is normal. RE[employer]ERY [employer]ATOR [employer]: Amanda Pink RDCS
[2017-11-17] MEDS: MULTIVITAMINS, THERA 1 EACH TAB PO SCH (12:35)
--- NOTE | 2017-11-17 14:50 | P.PN ---
Subjective Progress Note Date: 11/17/17 Principal diagnosis: Acute hypoxemic respiratory failure second or 2 and acute exacerbation of chronic obstructive disease, purulent tracheobronchitis, and possible early pneumonia and acute exacerbation of diastolic CHF This is a very pleasant 82-year-old gentleman who follows with Dr. Britt in the [facility] as his primary care providers. He has a history of hypertension, congestive heart failure, hyperlipidemia, diabetes mellitus, Hussein's palsy, atrial fibrillation status post permanent pacemaker implantation anticoagulated with warfarin, prostate cancer. He also has a history of obstructive sleep apnea utilizing the BiPAP machine 01/04 and chronic obstructive pulmonary disease with an FEV1 value of 79% of predicted and is on Symbicort and albuterol and he follows with Dr. Roth in our office for the same. He was seen there yesterday with worsening shortness of breath, fever, diarrhea and confusion. He was referred to the emergency room. His chest x-ray showed no acute cardiopulmonary process. Labs revealed the BBC 4.4. Hemoglobin 12.5. INR 3.3. Creatinine 1.50. BNP 3120. Troponin 0.037, 0.029. He is seen today in consultation on the selective care unit. He is awake and alert in no acute distress. He is continuing with a loose nonproductive cough. No recent fever or chills. He is maintaining good O2 saturations in the upper 90s on 2 L/m per nasal cannula. He's been hemodynamically stable. Utilizing his home BiPAP. He 's been initiated on antibiotics in the form of ceftriaxone and azithromycin. On 11/17/2017 patient seen in follow-up on selective care unit. Still has some diffuse wheezes, but overall improving. Room air pulse ox is 94%, afebrile, vital signs are stable. Blood culture showed no growth at the 24-hour miguelina, no fever, no chills, and is on empiric antibiotics, in the form of Zithromax and Rocephin, he is on nebulized bronchodilators, Pulmicort and Perforomist, is on oral diuretics and systemic steroids. Patient will benefit from 24-hour inpatient treatment. Objective - Vital Signs Vital signs: Vital Signs Temp 97.4 F L 11/17/17 12:00 Pulse 91 11/17/17 12:28 Resp 18 11/17/17 12:28 BP 103/62 11/17/17 12:00 Pulse Ox 94 L 11/17/17 12:00 Intake & Output 11/16/17 11/17/17 11/17/17 18:59 06:59 18:59 Intake Total 900 10 480 Balance 900 10 480 Weight 102.5 kg 102.3 kg Intake: IV 10 0.9 10 Oral 900 480 Other: Voiding Method Toilet Toilet Urinal # Voids 1 - Exam - Constitutional General appearance: cooperative, mild distress, morbidly obese - EENT Eyes: EOMI, PERRLA ENT: hard of hearing Ears: bilateral: normal - Neck Neck: normal ROM Carotids: bilateral: upstroke normal Thyroid: bilateral: normal size - Respiratory Respiratory: bilateral: Scattered wheezing - Cardiovascular Rhythm: irregularly irregular Heart sounds: normal: S1, S2 - Gastrointestinal General gastrointestinal: normal bowel sounds - Integumentary Integumentary: normal turgor - Neurologic Neurologic: CNII-XII intact - Musculoskeletal Musculoskeletal: generalized weakness - Psychiatric Psychiatric: A&O x's 3, appropriate affect, intact judgment & insight - Labs CBC & Chem 7: 11/17/17 06:39 11/17/17 06:39 Labs: Abnormal Lab Results - Last 24 Hours (Table) 11/16/17 11/16/17 11/17/17 Range/Units 16:20 20:26 05:46 RBC (4.30-5.90) m/uL Hgb (13.0-17.5) gm/dL Hct (39.0-53.0) % Lymphocytes # (1.0-4.8) k/uL PT (9.0-12.0) sec INR (<1.2) BUN (9-20) mg/dL Creatinine (0.66-1.25) mg/dL Glucose (74-99) mg/dL POC Glucose (mg/dL) 273 H 269 H 287 H (75-99) mg/dL 11/17/17 11/17/17 11/17/17 Range/Units 06:39 06:39 06:39 RBC 3.80 L (4.30-5.90) m/uL Hgb 11.2 L (13.0-17.5) gm/dL Hct 33.7 L (39.0-53.0) % Lymphocytes # 0.6 L (1.0-4.8) k/uL PT 31.1 H (9.0-12.0) sec INR 3.5 H (<1.2) BUN 54 H (9-20) mg/dL Creatinine 2.18 H (0.66-1.25) mg/dL Glucose 273 H (74-99) mg/dL POC Glucose (mg/dL) (75-99) mg/dL 11/17/17 Range/Units 11:33 RBC (4.30-5.90) m/uL Hgb (13.0-17.5) gm/dL Hct (39.0-53.0) % Lymphocytes # (1.0-4.8) k/uL PT (9.0-12.0) sec INR (<1.2) BUN (9-20) mg/dL Creatinine (0.66-1.25) mg/dL Glucose (74-99) mg/dL POC Glucose (mg/dL) 310 H (75-99) mg/dL Microbiology - Last 24 Hours (Table) 11/15/17 13:46 Blood Culture - Preliminary Blood No Growth after 24 hours Assessment and Plan Plan: Assessment: #1 Acute hypoxic respiratory failure secondary to an acute exacerbation of chronic obstructive pulmonary disease, complicated by purulent tracheobronchitis and possible early pneumonia, suspect acute exacerbation of diastolic congestive heart failure with previous preserved left ventricular systolic function ejection fraction 60-65%. #2 Obstructive sleep apnea utilizing home BiPAP. #3 Acute on chronic renal failure. #4 Atrial fibrillation status post permanent pacemaker implantation, anticoagulated with warfarin. #5 Hypertension. #6 Hyperlipidemia. #7 Diabetes mellitus, with steroid-induced hyperglycemia. #8 History of prostate cancer. #9 History of bowel resection. Plan: Patient is stable, improving, breathing is improving, less bronchospastic. Continue current medical treatment, continue oral diuretics, IV steroids, empiric antibiotics and bronchodilators. On the 24 hours of inpatient treatment , increase activity as tolerated, continue GI and DVT prophylaxis. I performed a history & physical examination of the patient and discussed their management with my nurse practitioner, Ramona Ross. I reviewed the nurse practitioner's note and agree with the documented findings and plan of care. Lung sounds are positive for scattered wheezes throughout the lung nieves. The findings and the impression was discussed with the patient. I attest to the documentation by the nurse practitioner. Time with Patient: Less than 30
--- NOTE | 2017-11-17 15:11 | P.PN ---
Subjective Progress Note Date: 11/17/17 Progress note being dictated for Dr. Calderón Interval history: This is an 82-year-old gentleman admitted with acute COPD exacerbation and multiple other medical issues. Maintained on oral diuretics, nebulized bronchodilators, systemic steroids and antibiotics. Breathing improving, maintaining O2 sats of mid 90s on room air. Afebrile, with preliminary blood cultures negative. Denies chest pain, palpitations or increasing shortness of breath. Hyperglycemic. Echo reporting normal LV function and EF 55-60%, severely dilated LA, mild to moderate mitral regurgitation. Renal function worsening, up to 2.18. Objective - Vital Signs Vital signs: Vital Signs Temp 97.4 F L 11/17/17 12:00 Pulse 91 11/17/17 12:28 Resp 18 11/17/17 12:28 BP 103/62 11/17/17 12:00 Pulse Ox 94 L 11/17/17 12:00 Intake & Output 11/16/17 11/17/17 11/17/17 18:59 06:59 18:59 Intake Total 900 10 480 Balance 900 10 480 Weight 102.5 kg 102.3 kg Intake: IV 10 0.9 10 Oral 900 480 Other: Voiding Method Toilet Toilet Urinal # Voids 1 - Exam PHYSICAL EXAM: VITAL SIGNS: As above GENERAL: Sitting up at side of bed, no acute distress HEENT: Conjunctivae normal. eyes normal. Oral mucosa moist NECK: No JVD. No thyroid enlargement. No LNs CARDIOVASCULAR: S1, S2 muffled. Irregular, systolic murmur RESPIRATION: Breath sounds diminished in the bases. Occasional scattered rhonchi with expiratory wheezing, no crackles. ABDOMEN: Soft, nontender . No guarding. no masses palpable. Bowel sounds heard. LEGS: Trace edema PSYCHIATRY: Alert and oriented -3, mood and affect normal. NERVOUS SYSTEM: Cranial N 2-12 grossly normal. Moves all 4 limbs. Diffuse weakness No focal deficits. - Labs CBC & Chem 7: 11/17/17 06:39 11/17/17 06:39 Labs: Abnormal Lab Results - Last 24 Hours (Table) 11/16/17 11/16/17 11/17/17 Range/Units 16:20 20:26 05:46 RBC (4.30-5.90) m/uL Hgb (13.0-17.5) gm/dL Hct (39.0-53.0) % Lymphocytes # (1.0-4.8) k/uL PT (9.0-12.0) sec INR (<1.2) BUN (9-20) mg/dL Creatinine (0.66-1.25) mg/dL Glucose (74-99) mg/dL POC Glucose (mg/dL) 273 H 269 H 287 H (75-99) mg/dL 11/17/17 11/17/17 11/17/17 Range/Units 06:39 06:39 06:39 RBC 3.80 L (4.30-5.90) m/uL Hgb 11.2 L (13.0-17.5) gm/dL Hct 33.7 L (39.0-53.0) % Lymphocytes # 0.6 L (1.0-4.8) k/uL PT 31.1 H (9.0-12.0) sec INR 3.5 H (<1.2) BUN 54 H (9-20) mg/dL Creatinine 2.18 H (0.66-1.25) mg/dL Glucose 273 H (74-99) mg/dL POC Glucose (mg/dL) (75-99) mg/dL 11/17/17 Range/Units 11:33 RBC (4.30-5.90) m/uL Hgb (13.0-17.5) gm/dL Hct (39.0-53.0) % Lymphocytes # (1.0-4.8) k/uL PT (9.0-12.0) sec INR (<1.2) BUN (9-20) mg/dL Creatinine (0.66-1.25) mg/dL Glucose (74-99) mg/dL POC Glucose (mg/dL) 310 H (75-99) mg/dL Microbiology - Last 24 Hours (Table) 11/15/17 13:46 Blood Culture - Preliminary Blood No Growth after 24 hours Assessment and Plan Assessment: 1. [ Acute COPD exacerbation with acute purulent tracheobronchitis without evidence of michelle pneumonia]. Possible mild component of acute CHF, diastolic dysfunction. 2. [ Acute on chronic kidney disease, stage III]. 3. [ Sleep apnea, on BiPAP at home]. 4. [ Diabetes mellitus type 2, steroid-induced hyperglycemia]. 5. [ Degenerative joint disease 6. chronic atrial fibrillation, status post permanent pacemaker implantation]. 7. Obesity, BMI 33.4]. Plan: Continue on current medication regime ,monitoring and symptomatic treatment. maintain nebulized bronchodilators, Zithromax, Rocephin, systemic steroids and oral diuretic. Levemir increased, parameters placed on pre-meal insulin to hold if less than 120 .Close monitoring of Accu-Cheks. Coumadin remains on hold, INR 3.5. Increase ambulation as tolerated. Diuretics as per cardiology. Close monitoring of renal function with repeat labs ordered for a.m. The impression and plan of care has been dictated as directed. : I performed a history and examination of this patient, discussed the same with the dictator. I agree with the dictator's note ,documented as a scribe. Any additional findings or plans will be noted.
--- NOTE | 2017-11-17 15:32 | P.PN ---
Subjective Progress Note Date: 11/17/17 This is an 82-year-old gentleman with history of hypertension, hyperlipidemia, diabetes, Hussein's palsy, persistent atrial fibrillation, prior pacemaker implantation, history of prostate cancer, obstructive sleep apnea, COPD, patient also underwent a cardiac catheterization in 2009 which revealed mild to moderate coronary artery disease. He presented to the hospital with symptoms of moderate dyspnea. Patient was seen in consultation yesterday by Dr. Cao, it was felt that the patient had exacerbation of COPD in a patient with known history of COPD and pulmonary fibrosis. Mild troponin elevation was noted, most likely representing a type II myocardial infarction. Patient was seen and examined this morning, he is feeling better overall, continues to have some mild wheezing, continues to cough. Echo cardiac exam with Doppler study revealed a normal ejection fraction. LA severely dilated. Mild to moderate mitral regurgitation. Objective - Vital Signs Vital signs: Vital Signs Temp 97.4 F L 11/17/17 12:00 Pulse 91 11/17/17 12:28 Resp 18 11/17/17 12:28 BP 103/62 11/17/17 12:00 Pulse Ox 94 L 11/17/17 12:00 Intake & Output 11/16/17 11/17/17 11/17/17 18:59 06:59 18:59 Intake Total 900 10 480 Balance 900 10 480 Weight 102.5 kg 102.3 kg Intake: IV 10 0.9 10 Oral 900 480 Other: Voiding Method Toilet Toilet Urinal # Voids 1 - Exam PHYSICAL EXAMINATION: HEENT: Head is atraumatic, normocephalic. Pupils equal, round. Sclera anicteric. Conjunctiva are clear. Mucous membranes of the mouth are moist. Neck is supple. There is no elevated jugular venous pressure.] bruit is heard. HEART EXAMINATION: S1 and S2 irregularly irregular systolic murmur heard CHEST EXAMINATION: Reveal bilateral scattered rhonchi and wheezing throughout ABDOMEN: Soft, nontender. Bowel sounds are heard. No organomegaly noted. EXTREMITIES: 2+ peripheral pulses with no evidence of peripheral edema and no calf tenderness noted. NEUROLOGIC patient is awake, alert and oriented ?-3. . - Labs CBC & Chem 7: 11/17/17 06:39 11/17/17 06:39 Labs: Abnormal Lab Results - Last 24 Hours (Table) 11/16/17 11/16/17 11/17/17 Range/Units 16:20 20:26 05:46 RBC (4.30-5.90) m/uL Hgb (13.0-17.5) gm/dL Hct (39.0-53.0) % Lymphocytes # (1.0-4.8) k/uL PT (9.0-12.0) sec INR (<1.2) BUN (9-20) mg/dL Creatinine (0.66-1.25) mg/dL Glucose (74-99) mg/dL POC Glucose (mg/dL) 273 H 269 H 287 H (75-99) mg/dL 11/17/17 11/17/17 11/17/17 Range/Units 06:39 06:39 06:39 RBC 3.80 L (4.30-5.90) m/uL Hgb 11.2 L (13.0-17.5) gm/dL Hct 33.7 L (39.0-53.0) % Lymphocytes # 0.6 L (1.0-4.8) k/uL PT 31.1 H (9.0-12.0) sec INR 3.5 H (<1.2) BUN 54 H (9-20) mg/dL Creatinine 2.18 H (0.66-1.25) mg/dL Glucose 273 H (74-99) mg/dL POC Glucose (mg/dL) (75-99) mg/dL 11/17/17 Range/Units 11:33 RBC (4.30-5.90) m/uL Hgb (13.0-17.5) gm/dL Hct (39.0-53.0) % Lymphocytes # (1.0-4.8) k/uL PT (9.0-12.0) sec INR (<1.2) BUN (9-20) mg/dL Creatinine (0.66-1.25) mg/dL Glucose (74-99) mg/dL POC Glucose (mg/dL) 310 H (75-99) mg/dL Microbiology - Last 24 Hours (Table) 11/15/17 13:46 Blood Culture - Preliminary Blood No Growth after 24 hours Assessment and Plan Plan: Assessment and plan #1 acute hypoxic respiratory failure secondary to COPD exacerbation and purulent tracheobronchitis #2 obstructive sleep apnea #3 acute on chronic renal failure #4 chronic persistent atrial fibrillation anticoagulated with Coumadin #5 hypertension #6 hyperlipidemia #7 diabetes #8 history of prostate cancer Plan INR today is 3.5, we will hold the patient's dose of Coumadin today, check PT/ INR in the morning, continue with other medications. DNP note has been reviewed, I agree with a documented findings and plan of care. Patient was seen and examined.
[2017-11-17 16:51] LABS: Glucose,Whole Blood 355 mg/dL (75-99)
[2017-11-17] MEDS: cefTRIAXone IN SWFI 1,000 MG/10 ML SYRINGE IVP SCH (18:16)
[2017-11-17 20:58] LABS: Glucose,Whole Blood 405 mg/dL (75-99)
[2017-11-17] MEDS ORDERED: INSULIN DETEMIR 100 UNIT/ML 10 ML VIAL SQ SCH (21:00)
[2017-11-17] MEDS: ATORVASTATIN 80 MG TAB PO SCH (22:00)
[2017-11-17] MEDS: MELATONIN 3 MG TABLET PO SCH (22:01)
[2017-11-18 05:45] LABS: Glucose,Whole Blood 357 mg/dL (75-99)
[2017-11-18 06:22] LABS: Basophils % (A) 0 %; Eosinophils % (A) 0 %; HCT 33.3 % (39.0-53.0); HGB 10.9 gm/dL (13.0-17.5); Lymphocytes # (A) 0.7 k/uL (1.0-4.8); Lymphocytes % (A) 8 %; MCH 29.2 pg (25.0-35.0); MCHC 32.6 g/dL (31.0-37.0); MCV 89.5 fL (80.0-100.0); Mean Platelet Volume 8.8; Monocytes # (A) 0.3 k/uL (0-1.0); Monocytes % (A) 4 %; Neutrophils # (A) 7.4 k/uL (1.3-7.7); Neutrophils % (A) 87 %; Platelet Count 207 k/uL (150-450); RBC 3.72 m/uL (4.30-5.90); RDW 13.2 % (11.5-15.5); WBC 8.5 k/uL (3.8-10.6)
[2017-11-18 06:31] LABS: INR 2.7 (<1.2); Prothrombin Time 23.9 sec (9.0-12.0)
[2017-11-18 06:37] LABS: Calcium 8.7 mg/dL (8.4-10.2); Potassium 4.6 mmol/L (3.5-5.1)
[2017-11-18] MEDS: INSULIN ASPART 100 UNIT/ML 1 ML 10 ML VIAL SQ SCH ×7 (06:42→21:04)
[2017-11-18] MEDS: PANTOPRAZOLE 40 MG TABLET PO SCH (06:42)
[2017-11-18] MEDS: IPRATROPIUM-ALBUTEROL 3 ML NEB INHALATION SCH ×4 (07:30→19:31)
[2017-11-18] MEDS: FORMOTEROL FUMARATE 20 MCG/2 ML NEBU INHALATION SCH ×2 (07:30→19:30)
[2017-11-18] MEDS: BUDESONIDE 1 MG/2 ML NEBU INHALATION SCH ×2 (07:30→19:30)
[2017-11-18] MEDS: methylPREDNISolone SOD SUCCI 125 MG/2 ML VIAL IV SCH ×2 (08:02→15:08)
[2017-11-18] MEDS: AZITHROMYCIN 500 MG TAB PO SCH (08:03)
[2017-11-18] MEDS: BICALUTAMIDE 50 MG TAB PO SCH (08:03)
[2017-11-18] MEDS: amLODIPine 5 MG TAB PO SCH ×2 (08:03→20:11)
[2017-11-18] MEDS: LISINOPRIL 20 MG TAB PO SCH (08:03)
[2017-11-18] MEDS: FUROSEMIDE 40 MG TAB PO SCH (08:03)
[2017-11-18] MEDS: FERROUS SULFATE 325 MG TAB PO SCH (08:03)
[2017-11-18] MEDS: GABAPENTIN 300 MG CAP PO SCH ×2 (08:03→20:12)
[2017-11-18] MEDS: TAMSULOSIN 0.4 MG CAP.ER.24H PO SCH (08:03)
[2017-11-18] MEDS: CALCIUM CARB-VIT D 500MG-200UN 1 EACH TAB PO SCH ×2 (08:03→20:12)
--- NOTE | 2017-11-18 08:42 | XR ---
EXAMINATION TYPE: XR chest 2V DATE OF EXAM: 11/18/2017 COMPARISON: 11/15/2017 TECHNIQUE: PA and lateral views submitted. HISTORY: Shortness of breath FINDINGS: The lungs are clear and there is no pneumothorax, pleural effusion, or focal pneumonia. Cardiac dev ice noted which appears stable. No overt failure. Atherosclerotic change aorta. Hypertrophic and dege nerative changes spine with postsurgical changes involving the lumbar spine. IMPRESSION: 1. No acute process.
[2017-11-18] MEDS: VENLAFAXINE HCL 75 MG TAB PO SCH ×2 (08:49→20:12)
[2017-11-18 11:37] LABS: Glucose,Whole Blood 340 mg/dL (75-99)
--- NOTE | 2017-11-18 12:07 | P.PN ---
Subjective Progress Note Date: 11/18/17 Principal diagnosis: Acute hypoxemic respiratory failure second or 2 and acute exacerbation of chronic obstructive disease, purulent tracheobronchitis, and possible early pneumonia and acute exacerbation of diastolic CHF This is a very pleasant 82-year-old gentleman who follows with Dr. Britt in the [facility] as his primary care providers. He has a history of hypertension, congestive heart failure, hyperlipidemia, diabetes mellitus, Hussein's palsy, atrial fibrillation status post permanent pacemaker implantation anticoagulated with warfarin, prostate cancer. He also has a history of obstructive sleep apnea utilizing the BiPAP machine 01/04 and chronic obstructive pulmonary disease with an FEV1 value of 79% of predicted and is on Symbicort and albuterol and he follows with Dr. Roth in our office for the same. He was seen there yesterday with worsening shortness of breath, fever, diarrhea and confusion. He was referred to the emergency room. His chest x-ray showed no acute cardiopulmonary process. Labs revealed the BBC 4.4. Hemoglobin 12.5. INR 3.3. Creatinine 1.50. BNP 3120. Troponin 0.037, 0.029. He is seen today in consultation on the selective care unit. He is awake and alert in no acute distress. He is continuing with a loose nonproductive cough. No recent fever or chills. He is maintaining good O2 saturations in the upper 90s on 2 L/m per nasal cannula. He's been hemodynamically stable. Utilizing his home BiPAP. He 's been initiated on antibiotics in the form of ceftriaxone and azithromycin. On 11/17/2017 patient seen in follow-up on selective care unit. Still has some diffuse wheezes, but overall improving. Room air pulse ox is 94%, afebrile, vital signs are stable. Blood culture showed no growth at the 24-hour miguelina, no fever, no chills, and is on empiric antibiotics, in the form of Zithromax and Rocephin, he is on nebulized bronchodilators, Pulmicort and Perforomist, is on oral diuretics and systemic steroids. Patient will benefit from 24-hour inpatient treatment. On 11/18/2017 patient seen in follow-up on selective care unit. Alert, in no acute distress, although still dyspneic with exertion, and remains significantly congested, with coarse scattered rhonchi bilaterally. No fever, no chills, currently on room air. Vital signs are stable, he is being treated with a combination of systemic steroids, oral diuretics, Pulmicort Perforomist, and nebulized bronchodilators, remains on empiric antibiotics, and microbiology results show blood cultures at the 48 hour miguelina. Patient is improving, but remains significantly congested, we will continue with current plan of care, not quite ready for discharge. Objective - Vital Signs Vital signs: Vital Signs Temp 97.1 F L 11/18/17 07:31 Pulse 66 11/18/17 11:40 Resp 18 11/18/17 07:31 BP 128/58 11/18/17 07:31 Pulse Ox 96 11/18/17 07:33 Intake & Output 11/17/17 11/18/17 11/18/17 18:59 06:59 18:59 Intake Total 720 10 480 Balance 720 10 480 Weight 109.5 kg Intake: IV 10 0.9 10 Oral 720 480 Other: Voiding Method Toilet Urinal # Voids 2 1 - Exam - Constitutional General appearance: cooperative, mild distress, morbidly obese - EENT Eyes: EOMI, PERRLA ENT: hard of hearing Ears: bilateral: normal - Neck Neck: normal ROM Carotids: bilateral: upstroke normal Thyroid: bilateral: normal size - Respiratory Respiratory: bilateral: Scattered rhonchi - Cardiovascular Rhythm: irregularly irregular Heart sounds: normal: S1, S2 - Gastrointestinal General gastrointestinal: normal bowel sounds - Integumentary Integumentary: normal turgor - Neurologic Neurologic: CNII-XII intact - Musculoskeletal Musculoskeletal: generalized weakness - Psychiatric Psychiatric: A&O x's 3, appropriate affect, intact judgment & insight - Labs CBC & Chem 7: 11/18/17 05:53 11/18/17 05:53 Labs: Abnormal Lab Results - Last 24 Hours (Table) 11/17/17 11/17/17 11/18/17 Range/Units 16:29 20:56 05:44 RBC (4.30-5.90) m/uL Hgb (13.0-17.5) gm/dL Hct (39.0-53.0) % Lymphocytes # (1.0-4.8) k/uL PT (9.0-12.0) sec INR (<1.2) Sodium (137-145) mmol/L BUN (9-20) mg/dL Creatinine (0.66-1.25) mg/dL Glucose (74-99) mg/dL POC Glucose (mg/dL) 355 H 405 H 357 H (75-99) mg/dL 11/18/17 11/18/17 11/18/17 Range/Units 05:53 05:53 05:53 RBC 3.72 L (4.30-5.90) m/uL Hgb 10.9 L (13.0-17.5) gm/dL Hct 33.3 L (39.0-53.0) % Lymphocytes # 0.7 L (1.0-4.8) k/uL PT 23.9 H (9.0-12.0) sec INR 2.7 H (<1.2) Sodium 134 L (137-145) mmol/L BUN 62 H (9-20) mg/dL Creatinine 2.25 H (0.66-1.25) mg/dL Glucose 328 H (74-99) mg/dL POC Glucose (mg/dL) (75-99) mg/dL 11/18/17 Range/Units 11:36 RBC (4.30-5.90) m/uL Hgb (13.0-17.5) gm/dL Hct (39.0-53.0) % Lymphocytes # (1.0-4.8) k/uL PT (9.0-12.0) sec INR (<1.2) Sodium (137-145) mmol/L BUN (9-20) mg/dL Creatinine (0.66-1.25) mg/dL Glucose (74-99) mg/dL POC Glucose (mg/dL) 340 H (75-99) mg/dL Microbiology - Last 24 Hours (Table) 11/15/17 13:46 Blood Culture - Preliminary Blood No Growth after 48 hours Assessment and Plan Plan: Assessment: #1 Acute hypoxic respiratory failure secondary to an acute exacerbation of chronic obstructive pulmonary disease, complicated by purulent tracheobronchitis and possible early pneumonia, suspect acute exacerbation of diastolic congestive heart failure with previous preserved left ventricular systolic function ejection fraction 60-65%. #2 Obstructive sleep apnea utilizing home BiPAP. #3 Acute on chronic renal failure. #4 Atrial fibrillation status post permanent pacemaker implantation, anticoagulated with warfarin. #5 Hypertension. #6 Hyperlipidemia. #7 Diabetes mellitus, with steroid-induced hyperglycemia. #8 History of prostate cancer. #9 History of bowel resection. Plan: Patient is improving, although still remains significantly congested, and is not able to bring up much sputum. We will continue current plan of treatment, antibiotics, and because bronchodilators, systemic steroids. We'll continue to follow. I performed a history & physical examination of the patient and discussed their management with my nurse practitioner, Ramona Ross. I reviewed the nurse practitioner's note and agree with the documented findings and plan of care. Lung sounds are positive for scattered wheezes throughout the lung nieves. The findings and the impression was discussed with the patient. I attest to the documentation by the nurse practitioner. Time with Patient: Less than 30
[2017-11-18] MEDS: MULTIVITAMINS, THERA 1 EACH TAB PO SCH (12:27)
--- NOTE | 2017-11-18 14:57 | P.PN ---
Subjective Progress Note Date: 11/18/17 This is an 82-year-old gentleman with history of hypertension, hyperlipidemia, diabetes, Hussein's palsy, persistent atrial fibrillation, prior pacemaker implantation, history of prostate cancer, obstructive sleep apnea, COPD, patient also underwent a cardiac catheterization in 2009 which revealed mild to moderate coronary artery disease. He presented to the hospital with symptoms of moderate dyspnea. Patient was seen in consultation yesterday by Dr. Cao, it was felt that the patient had exacerbation of COPD in a patient with known history of COPD and pulmonary fibrosis. Mild troponin elevation was noted, most likely representing a type II myocardial infarction. Patient was seen and examined this morning, he is feeling better overall, continues to have some mild wheezing, continues to cough. Echo cardiac exam with Doppler study revealed a normal ejection fraction. LA severely dilated. Mild to moderate mitral regurgitation. 11/18/2017 Patient seen and examined this morning, continues to have cough, not much sputum production according to the patient. Very wheezy today. Pressure 117/ 60 with a heart rate in the 60s, 96% on room air. INR 2.7, BUN 62, creatinine 2.2. Objective - Vital Signs Vital signs: Vital Signs Temp 97.4 F L 11/18/17 12:00 Pulse 61 11/18/17 12:00 Resp 18 11/18/17 12:00 BP 117/66 11/18/17 12:00 Pulse Ox 96 11/18/17 12:00 Intake & Output 11/17/17 11/18/17 11/18/17 18:59 06:59 18:59 Intake Total 720 10 720 Balance 720 10 720 Weight 109.5 kg Intake: IV 10 0.9 10 Oral 720 720 Other: Voiding Method Toilet Urinal # Voids 2 1 - Exam PHYSICAL EXAMINATION: HEENT: Head is atraumatic, normocephalic. Pupils equal, round. Sclera anicteric. Conjunctiva are clear. Mucous membranes of the mouth are moist. Neck is supple. There is no elevated jugular venous pressure.] bruit is heard. HEART EXAMINATION: S1 and S2 irregularly irregular systolic murmur heard CHEST EXAMINATION: Reveal bilateral scattered rhonchi and wheezing throughout ABDOMEN: Soft, nontender. Bowel sounds are heard. No organomegaly noted. EXTREMITIES: 2+ peripheral pulses with no evidence of peripheral edema and no calf tenderness noted. NEUROLOGIC patient is awake, alert and oriented ?-3. . - Labs CBC & Chem 7: 11/18/17 05:53 11/18/17 05:53 Labs: Abnormal Lab Results - Last 24 Hours (Table) 11/17/17 11/17/17 11/18/17 Range/Units 16:29 20:56 05:44 RBC (4.30-5.90) m/uL Hgb (13.0-17.5) gm/dL Hct (39.0-53.0) % Lymphocytes # (1.0-4.8) k/uL PT (9.0-12.0) sec INR (<1.2) Sodium (137-145) mmol/L BUN (9-20) mg/dL Creatinine (0.66-1.25) mg/dL Glucose (74-99) mg/dL POC Glucose (mg/dL) 355 H 405 H 357 H (75-99) mg/dL 11/18/17 11/18/17 11/18/17 Range/Units 05:53 05:53 05:53 RBC 3.72 L (4.30-5.90) m/uL Hgb 10.9 L (13.0-17.5) gm/dL Hct 33.3 L (39.0-53.0) % Lymphocytes # 0.7 L (1.0-4.8) k/uL PT 23.9 H (9.0-12.0) sec INR 2.7 H (<1.2) Sodium 134 L (137-145) mmol/L BUN 62 H (9-20) mg/dL Creatinine 2.25 H (0.66-1.25) mg/dL Glucose 328 H (74-99) mg/dL POC Glucose (mg/dL) (75-99) mg/dL 11/18/17 Range/Units 11:36 RBC (4.30-5.90) m/uL Hgb (13.0-17.5) gm/dL Hct (39.0-53.0) % Lymphocytes # (1.0-4.8) k/uL PT (9.0-12.0) sec INR (<1.2) Sodium (137-145) mmol/L BUN (9-20) mg/dL Creatinine (0.66-1.25) mg/dL Glucose (74-99) mg/dL POC Glucose (mg/dL) 340 H (75-99) mg/dL Microbiology - Last 24 Hours (Table) 11/15/17 13:46 Blood Culture - Preliminary Blood No Growth after 48 hours Assessment and Plan Plan: Assessment and plan #1 acute hypoxic respiratory failure secondary to COPD exacerbation and purulent tracheobronchitis #2 obstructive sleep apnea #3 acute on chronic renal failure #4 chronic persistent atrial fibrillation anticoagulated with Coumadin #5 hypertension #6 hyperlipidemia #7 diabetes #8 history of prostate cancer Plan INR today is 2.7, we will give the patient to not milligrams of Coumadin today, check PT/INR in the morning. Plan for discharge home in the morning if stable. DNP note has been reviewed, I agree with a documented findings and plan of care. Patient was seen and examined.
[2017-11-18 16:58] LABS: Glucose,Whole Blood 333 mg/dL (75-99)
--- NOTE | 2017-11-18 18:57 | P.PN ---
Subjective Progress Note Date: 11/18/17 Progress note being dictated for Dr. Calderón Interval history: This is an 82-year-old gentleman admitted with acute COPD exacerbation and multiple other medical issues. Maintained on oral diuretics, nebulized bronchodilators, systemic steroids and antibiotics. Breathing improving, maintaining O2 sats of mid 90s on room air. Afebrile, with preliminary blood cultures negative. Denies chest pain, palpitations or increasing shortness of breath. Hyperglycemic. Echo reporting normal LV function and EF 55-60%, severely dilated LA, mild to moderate mitral regurgitation. Renal function worsening, up to 2.18. 11/18/17 continues to have significant congestion, nonproductive cough but reports minimal malagon sputum production last night. Creatinine 2.25, INR 2.7. Objective - Vital Signs Vital signs: Vital Signs Temp 97.2 F L 11/18/17 15:10 Pulse 64 11/18/17 16:33 Resp 18 11/18/17 15:10 BP 125/59 11/18/17 15:10 Pulse Ox 96 11/18/17 15:10 Intake & Output 11/17/17 11/18/17 11/18/17 18:59 06:59 18:59 Intake Total 720 10 960 Balance 720 10 960 Weight 109.5 kg Intake: IV 10 0.9 10 Oral 720 960 Other: Voiding Method Toilet Urinal # Voids 2 1 - Exam PHYSICAL EXAM: VITAL SIGNS: As above GENERAL: Sitting up at side of bed, no acute distress HEENT: Conjunctivae normal. eyes normal. Oral mucosa moist NECK: No JVD. No thyroid enlargement. No LNs CARDIOVASCULAR: S1, S2 muffled. Irregular, systolic murmur RESPIRATION: Breath sounds diminished in the bases. Scattered rhonchi and expiratory wheezing, no crackles. ABDOMEN: Soft, nontender . No guarding. no masses palpable. Bowel sounds heard. LEGS: Trace edema PSYCHIATRY: Alert and oriented -3, mood and affect normal. NERVOUS SYSTEM: Cranial N 2-12 grossly normal. Moves all 4 limbs. Diffuse weakness No focal deficits. Microbiology 11/15/17 13:46 Blood Blood Culture - Preliminary No Growth after 72 hours - Labs CBC & Chem 7: 11/18/17 05:53 11/18/17 05:53 Labs: Abnormal Lab Results - Last 24 Hours (Table) 08/05/0611/18/17 11/18/17 Range/Units 20:56 05:44 05:53 RBC 3.72 L (4.30-5.90) m/uL Hgb 10.9 L (13.0-17.5) gm/dL Hct 33.3 L (39.0-53.0) % Lymphocytes # 0.7 L (1.0-4.8) k/uL PT (9.0-12.0) sec INR (<1.2) Sodium (137-145) mmol/L BUN (9-20) mg/dL Creatinine (0.66-1.25) mg/dL Glucose (74-99) mg/dL POC Glucose (mg/dL) 405 H 357 H (75-99) mg/dL 11/18/17 11/18/17 11/18/17 Range/Units 05:53 05:53 11:36 RBC (4.30-5.90) m/uL Hgb (13.0-17.5) gm/dL Hct (39.0-53.0) % Lymphocytes # (1.0-4.8) k/uL PT 23.9 H (9.0-12.0) sec INR 2.7 H (<1.2) Sodium 134 L (137-145) mmol/L BUN 62 H (9-20) mg/dL Creatinine 2.25 H (0.66-1.25) mg/dL Glucose 328 H (74-99) mg/dL POC Glucose (mg/dL) 340 H (75-99) mg/dL 11/18/17 Range/Units 16:27 RBC (4.30-5.90) m/uL Hgb (13.0-17.5) gm/dL Hct (39.0-53.0) % Lymphocytes # (1.0-4.8) k/uL PT (9.0-12.0) sec INR (<1.2) Sodium (137-145) mmol/L BUN (9-20) mg/dL Creatinine (0.66-1.25) mg/dL Glucose (74-99) mg/dL POC Glucose (mg/dL) 333 H (75-99) mg/dL Microbiology - Last 24 Hours (Table) 11/15/17 13:46 Blood Culture - Preliminary Blood No Growth after 72 hours Assessment and Plan Assessment: 1. [ Acute hypoxic respiratory failure secondary to Acute COPD exacerbation with acute purulent tracheobronchitis without evidence of michelle pneumonia]. Possible mild component of acute CHF, diastolic dysfunction. 2. [ Acute on chronic kidney disease, stage III]. 3. [ Sleep apnea, on BiPAP at home]. 4. [ Diabetes mellitus type 2, steroid-induced hyperglycemia]. 5. [ Degenerative joint disease 6. chronic atrial fibrillation, status post permanent pacemaker implantation]. 7. Obesity, BMI 33.4]. Plan: Continue on current medication regime ,monitoring and symptomatic treatment. maintain nebulized bronchodilators, Zithromax, Rocephin, systemic steroids and oral diuretic. Steroid-induced hyperglycemia- Levemir further increased, may need to place on insulin drip -Close monitoring of Accu-Cheks. Coumadin dosing as per cardiology. Increase ambulation as tolerated. Close monitoring of renal function with repeat labs ordered for a.m. Not yet ready for discharge. The impression and plan of care has been dictated as directed. : I performed a history and examination of this patient, discussed the same with the dictator. I agree with the dictator's note ,documented as a scribe. Any additional findings or plans will be noted.
[2017-11-18] MEDS: cefTRIAXone IN SWFI 1,000 MG/10 ML SYRINGE IVP SCH (19:40)
[2017-11-18] MEDS: ATORVASTATIN 80 MG TAB PO SCH (20:11)
[2017-11-18] MEDS: SENNOSIDES-DOCUSATE SODIUM 1 EACH TAB PO SCH (20:12)
[2017-11-18] MEDS: DOCUSATE 100 MG CAP PO SCH (20:12)
[2017-11-18 20:55] LABS: Glucose,Whole Blood 341 mg/dL (75-99)
[2017-11-18] MEDS ORDERED: INSULIN DETEMIR 100 UNIT/ML 10 ML VIAL SQ SCH (21:00)
[2017-11-18] MEDS: MELATONIN 3 MG TABLET PO SCH (21:04)
[2017-11-19] MEDS: methylPREDNISolone SOD SUCCI 125 MG/2 ML VIAL IV SCH ×2 (01:38→08:33)
[2017-11-19 05:53] LABS: Glucose,Whole Blood 226 mg/dL (75-99)
[2017-11-19 06:22] LABS: Basophils % (A) 0 %; Eosinophils % (A) 0 %; HCT 35.1 % (39.0-53.0); HGB 11.6 gm/dL (13.0-17.5); Lymphocytes # (A) 0.9 k/uL (1.0-4.8); Lymphocytes % (A) 8 %; MCV 90.6 fL (80.0-100.0); Mean Platelet Volume 8.6; Monocytes # (A) 0.6 k/uL (0-1.0); Monocytes % (A) 6 %; Neutrophils # (A) 9.4 k/uL (1.3-7.7); Neutrophils % (A) 85 %; Platelet Count 228 k/uL (150-450); RBC 3.87 m/uL (4.30-5.90); RDW 13.3 % (11.5-15.5); WBC 11.1 k/uL (3.8-10.6)
[2017-11-19 06:30] LABS: INR 1.9 (<1.2)
[2017-11-19 06:31] LABS: Prothrombin Time 17.6 sec (9.0-12.0)
[2017-11-19 06:40] LABS: Potassium 4.8 mmol/L (3.5-5.1)
[2017-11-19] MEDS: INSULIN ASPART 100 UNIT/ML 1 ML 10 ML VIAL SQ SCH ×4 (06:55→12:15)
[2017-11-19] MEDS: FORMOTEROL FUMARATE 20 MCG/2 ML NEBU INHALATION SCH (07:57)
[2017-11-19] MEDS: BUDESONIDE 1 MG/2 ML NEBU INHALATION SCH (07:57)
[2017-11-19] MEDS: IPRATROPIUM-ALBUTEROL 3 ML NEB INHALATION SCH ×2 (07:57→11:28)
[2017-11-19 08:27] VITALS: RESP 20
[2017-11-19] MEDS: DOCUSATE 100 MG CAP PO SCH (08:32)
[2017-11-19] MEDS: SENNOSIDES-DOCUSATE SODIUM 1 EACH TAB PO SCH (08:32)
[2017-11-19] MEDS: TAMSULOSIN 0.4 MG CAP.ER.24H PO SCH (08:32)
[2017-11-19] MEDS: AZITHROMYCIN 500 MG TAB PO SCH (08:33)
[2017-11-19] MEDS: BICALUTAMIDE 50 MG TAB PO SCH (08:33)
[2017-11-19] MEDS: amLODIPine 5 MG TAB PO SCH (08:33)
[2017-11-19] MEDS: FUROSEMIDE 40 MG TAB PO SCH (08:33)
[2017-11-19] MEDS: FERROUS SULFATE 325 MG TAB PO SCH (08:33)
[2017-11-19] MEDS: LISINOPRIL 20 MG TAB PO SCH (08:33)
[2017-11-19] MEDS: VENLAFAXINE HCL 75 MG TAB PO SCH (08:33)
[2017-11-19] MEDS: PANTOPRAZOLE 40 MG TABLET PO SCH (08:33)
[2017-11-19] MEDS: GABAPENTIN 300 MG CAP PO SCH (08:33)
[2017-11-19] MEDS: CALCIUM CARB-VIT D 500MG-200UN 1 EACH TAB PO SCH (08:33)
[2017-11-19 11:50] LABS: Glucose,Whole Blood 177 mg/dL (75-99)
--- NOTE | 2017-11-19 11:55 | P.PN ---
Subjective Progress Note Date: 11/19/17 Principal diagnosis: Acute hypoxemic respiratory failure second or 2 and acute exacerbation of chronic obstructive disease, purulent tracheobronchitis, and possible early pneumonia and acute exacerbation of diastolic CHF This is a very pleasant 82-year-old gentleman who follows with Dr. Britt in the [facility] as his primary care providers. He has a history of hypertension, congestive heart failure, hyperlipidemia, diabetes mellitus, Hussein's palsy, atrial fibrillation status post permanent pacemaker implantation anticoagulated with warfarin, prostate cancer. He also has a history of obstructive sleep apnea utilizing the BiPAP machine 01/04 and chronic obstructive pulmonary disease with an FEV1 value of 79% of predicted and is on Symbicort and albuterol and he follows with Dr. Roth in our office for the same. He was seen there yesterday with worsening shortness of breath, fever, diarrhea and confusion. He was referred to the emergency room. His chest x-ray showed no acute cardiopulmonary process. Labs revealed the BBC 4.4. Hemoglobin 12.5. INR 3.3. Creatinine 1.50. BNP 3120. Troponin 0.037, 0.029. He is seen today in consultation on the selective care unit. He is awake and alert in no acute distress. He is continuing with a loose nonproductive cough. No recent fever or chills. He is maintaining good O2 saturations in the upper 90s on 2 L/m per nasal cannula. He's been hemodynamically stable. Utilizing his home BiPAP. He 's been initiated on antibiotics in the form of ceftriaxone and azithromycin. On 11/17/2017 patient seen in follow-up on selective care unit. Still has some diffuse wheezes, but overall improving. Room air pulse ox is 94%, afebrile, vital signs are stable. Blood culture showed no growth at the 24-hour miguelina, no fever, no chills, and is on empiric antibiotics, in the form of Zithromax and Rocephin, he is on nebulized bronchodilators, Pulmicort and Perforomist, is on oral diuretics and systemic steroids. Patient will benefit from 24-hour inpatient treatment. On 11/18/2017 patient seen in follow-up on selective care unit. Alert, in no acute distress, although still dyspneic with exertion, and remains significantly congested, with coarse scattered rhonchi bilaterally. No fever, no chills, currently on room air. Vital signs are stable, he is being treated with a combination of systemic steroids, oral diuretics, Pulmicort Perforomist, and nebulized bronchodilators, remains on empiric antibiotics, and microbiology results show blood cultures at the 48 hour miguelina. Patient is improving, but remains significantly congested, we will continue with current plan of care, not quite ready for discharge. On patient seen in follow-up on selective care unit. Less congested, not bronchospastic, started to bring up small amounts of phlegm. Tolerating ambulation, he is on room air pulse ox of 96%, he is afebrile, vital signs are stable. Yesterday's chest x-ray has been reviewed, showed no acute process. His labs were noted, WBC is 11.1, hemoglobin 11.6, there is 1.9, sodium is 134, rest of electrolytes were normal, BUN is 69, creatinine is 2.2, renal profile is stable. No acute events overnight, patient is improving. Stable for discharge home from pulmonary standpoint. Objective - Vital Signs Vital signs: Vital Signs Temp 96.8 F L 11/19/17 08:26 Pulse 66 11/19/17 11:41 Resp 20 11/19/17 08:26 BP 115/58 11/19/17 08:26 Pulse Ox 96 11/19/17 08:26 Intake & Output 11/18/17 11/19/17 11/19/17 18:59 06:59 18:59 Intake Total 960 480 180 Balance 960 480 180 Weight 110.5 kg Intake: Oral 960 480 180 Other: Voiding Method Toilet Urinal # Voids 1 0 - Exam - Constitutional General appearance: cooperative, morbidly obese - EENT Eyes: EOMI, PERRLA ENT: hard of hearing Ears: bilateral: normal - Neck Neck: normal ROM Carotids: bilateral: upstroke normal Thyroid: bilateral: normal size - Respiratory Respiratory: bilateral: Scattered rhonchi, overall less congested compared to yesterday's exam. - Cardiovascular Rhythm: irregularly irregular Heart sounds: normal: S1, S2 - Gastrointestinal General gastrointestinal: normal bowel sounds - Integumentary Integumentary: normal turgor - Neurologic Neurologic: CNII-XII intact - Musculoskeletal Musculoskeletal: generalized weakness - Psychiatric Psychiatric: A&O x's 3, appropriate affect, intact judgment & insight - Labs CBC & Chem 7: 11/19/17 06:04 11/19/17 06:04 Labs: Abnormal Lab Results - Last 24 Hours (Table) 11/18/17 11/18/17 11/19/17 Range/Units 16:27 20:54 05:52 WBC (3.8-10.6) k/uL RBC (4.30-5.90) m/uL Hgb (13.0-17.5) gm/dL Hct (39.0-53.0) % Neutrophils # (1.3-7.7) k/uL Lymphocytes # (1.0-4.8) k/uL PT (9.0-12.0) sec INR (<1.2) Sodium (137-145) mmol/L BUN (9-20) mg/dL Creatinine (0.66-1.25) mg/dL Glucose (74-99) mg/dL POC Glucose (mg/dL) 333 H 341 H 226 H (75-99) mg/dL 11/19/17 11/19/17 11/19/17 Range/Units 06:04 06:04 06:04 WBC 11.1 H (3.8-10.6) k/uL RBC 3.87 L (4.30-5.90) m/uL Hgb 11.6 L (13.0-17.5) gm/dL Hct 35.1 L (39.0-53.0) % Neutrophils # 9.4 H (1.3-7.7) k/uL Lymphocytes # 0.9 L (1.0-4.8) k/uL PT 17.6 H (9.0-12.0) sec INR 1.9 H (<1.2) Sodium 134 L (137-145) mmol/L BUN 69 H (9-20) mg/dL Creatinine 2.20 H (0.66-1.25) mg/dL Glucose 220 H (74-99) mg/dL POC Glucose (mg/dL) (75-99) mg/dL Microbiology - Last 24 Hours (Table) 11/15/17 13:46 Blood Culture - Preliminary Blood No Growth after 72 hours Assessment and Plan Plan: Assessment: #1 Acute hypoxic respiratory failure secondary to an acute exacerbation of chronic obstructive pulmonary disease, complicated by purulent tracheobronchitis and possible early pneumonia, suspect acute exacerbation of diastolic congestive heart failure with previous preserved left ventricular systolic function ejection fraction 60-65%. #2 Obstructive sleep apnea utilizing home BiPAP. #3 Acute on chronic renal failure. #4 Atrial fibrillation status post permanent pacemaker implantation, anticoagulated with warfarin. #5 Hypertension. #6 Hyperlipidemia. #7 Diabetes mellitus, with steroid-induced hyperglycemia. #8 History of prostate cancer. #9 History of bowel resection. Plan: Patient is stable, improving, less congested, to bring up sputum, tolerating ambulation, room air pulse ox 96%. Patient has been treated with a combination of systemic steroids, nebulized bronchodilators, and antibiotics, he is improving, from pulmonary standpoint he is stable for discharge home today I performed a history & physical examination of the patient and discussed their management with my nurse practitioner, Ramona Ross. I reviewed the nurse practitioner's note and agree with the documented findings and plan of care. Lung sounds are positive for scattered wheezes throughout the lung nieves. The findings and the impression was discussed with the patient. I attest to the documentation by the nurse practitioner. Time with Patient: Less than 30
[2017-11-19 12:12] VITALS: BP 123/62; PULSE 61; TEMP 97.6
[2017-11-19] MEDS: MULTIVITAMINS, THERA 1 EACH TAB PO SCH (12:15)
--- NOTE | 2017-11-19 12:33 | P.DS ---
Providers Date of admission: 11/15/17 15:54 Attending physician: Pratibha Rivero Consults: 11/15/17 15:54 Consult Physician Routine Consulting Provider: Toby Roth Consult Reason/Comments: COPD, CHF Do you want consulting provider notified?: Yes 11/15/17 16:41 Consult Physician Routine Consulting Provider: Nader Kendrick Consult Reason/Comments: chf Do you want consulting provider notified?: Yes Primary care physician: [facility] Hospital Course: 82-year-old gentleman admitted with acute COPD exacerbation and multiple other medical issues. Maintained on oral diuretics, nebulized bronchodilators, systemic steroids and antibiotics. Breathing improving, maintaining O2 sats of mid 90s on room air. Afebrile, with preliminary blood cultures negative. Denies chest pain, palpitations or increasing shortness of breath. Hyperglycemic. Echo reporting normal LV function and EF 55-60%, severely dilated LA, mild to moderate mitral regurgitation. Renal function worsening, up to 2.18. 11/18/17 continues to have significant congestion, nonproductive cough but reports minimal malagon sputum production last night. Creatinine 2.25, INR 2.7. 11/19/2017 Patient was pretty status improved his is not requiring any oxygen PHYSICAL EXAMINATION: GENERAL: The patient is alert and oriented x3, not in any acute distress. Well developed, well nourished. HEENT: Pupils are round and equally reacting to light. EOMI. No scleral icterus. No conjunctival pallor. Normocephalic, atraumatic. No pharyngeal erythema. No thyromegaly. CARDIOVASCULAR: S1 and S2 present. No murmurs, rubs, or gallops. PULMONARY: Chest is clear to auscultation, no wheezing or crackles. ABDOMEN: Soft, nontender, nondistended, normoactive bowel sounds. No palpable organomegaly. MUSCULOSKELETAL: No joint swelling or deformity. EXTREMITIES: No cyanosis, clubbing, or pedal edema. NEUROLOGICAL: Gross neurological examination did not reveal any focal deficits. SKIN: No rashes. Assessment and Plan Assessment: 1. [ Acute hypoxic respiratory failure secondary to Acute COPD exacerbation with acute purulent tracheobronchitis without evidence of michelle pneumonia]. Possible mild component of acute CHF, diastolic dysfunction. Patient is euvolemic 2. [ Acute on chronic kidney disease, stage III]. 3. [ Sleep apnea, on BiPAP at home]. 4. [ Diabetes mellitus type 2, steroid-induced hyperglycemia]. 5. [ Degenerative joint disease 6. chronic atrial fibrillation, status post permanent pacemaker implantation]. 7. Obesity, BMI 33.4]. Patient Condition at Discharge: Stable Plan - Discharge Summary Discharge Rx Participant: No New Discharge Prescriptions: New predniSONE 10 mg PO DAILY #30 tab Warfarin [Coumadin] 4 mg PO DAILY #30 tab Cefuroxime Axetil [Ceftin] 500 mg PO BID #10 tab Continue Calcium/Vit D3 600mg/800iu 1 tab PO BID Bicalutamide [Casodex] 50 mg PO DAILY Gabapentin [Neurontin] 300 mg PO BID Discontinued Warfarin Sodium [Coumadin] 5 mg PO HS No Action Venlafaxine HCl [Effexor] 75 mg PO BID Atorvastatin [Lipitor] 80 mg PO HS Furosemide [Lasix] 40 mg PO DAILY amLODIPine [Norvasc] 5 mg PO BID Ferrous Sulfate [Iron (65 MG Elemental)] 325 mg PO DAILY Insulin Aspart [NovoLOG (formulary)] See Protocol SQ AC-TID Insulin Glargine [Lantus] 40 unit SQ HS Lisinopril [Zestril] 20 mg PO DAILY Tamsulosin [Flomax] 0.4 mg PO DAILY Budesonide-Formot 160-4.5 Mcg [Symbicort 160-4.5 Mcg Inhaler] 2 puff INHALATION RT-BID Albuterol Nebulized [Ventolin Nebulized] 2.5 mg INHALATION RT-QID Discharge Medication List Atorvastatin [Lipitor] 80 mg PO HS 07/09/14 [History] Venlafaxine HCl [Effexor] 75 mg PO BID 07/09/14 [History] Furosemide [Lasix] 40 mg PO DAILY 05/17/15 [History] Ferrous Sulfate [Iron (65 MG Elemental)] 325 mg PO DAILY 08/06/15 [History] Insulin Aspart [NovoLOG (formulary)] See Protocol SQ AC-TID 08/06/15 [History] Insulin Glargine [Lantus] 40 unit SQ HS 08/06/15 [History] Lisinopril [Zestril] 20 mg PO DAILY 08/06/15 [History] amLODIPine [Norvasc] 5 mg PO BID 08/06/15 [History] Albuterol Nebulized [Ventolin Nebulized] 2.5 mg INHALATION RT-QID 01/27/16 [ History] Budesonide-Formot 160-4.5 Mcg [Symbicort 160-4.5 Mcg Inhaler] 2 puff INHALATION RT-BID 01/27/16 [History] Tamsulosin [Flomax] 0.4 mg PO DAILY 01/27/16 [History] Bicalutamide [Casodex] 50 mg PO DAILY 11/15/17 [History] Calcium/Vit D3 600mg/800iu 1 tab PO BID 11/15/17 [History] Gabapentin [Neurontin] 300 mg PO BID 11/15/17 [History] Cefuroxime Axetil [Ceftin] 500 mg PO BID #10 tab 11/19/17 [Rx] Warfarin [Coumadin] 4 mg PO DAILY #30 tab 11/19/17 [Rx] predniSONE 10 mg PO DAILY #30 tab 11/19/17 [Rx] Follow up Appointment(s)/Referral(s): [facility],Clinic [Primary Care Provider] - 1-2 days (Office will not let me make an appointment for you. Please call to schedule appointment. )
--- NOTE | 2017-11-19 15:01 | P.PN ---
Subjective Progress Note Date: 11/19/17 This is an 82-year-old gentleman with history of hypertension, hyperlipidemia, diabetes, Hussein's palsy, persistent atrial fibrillation, prior pacemaker implantation, history of prostate cancer, obstructive sleep apnea, COPD, patient also underwent a cardiac catheterization in 2009 which revealed mild to moderate coronary artery disease. He presented to the hospital with symptoms of moderate dyspnea. Patient was seen in consultation yesterday by Dr. Cao, it was felt that the patient had exacerbation of COPD in a patient with known history of COPD and pulmonary fibrosis. Mild troponin elevation was noted, most likely representing a type II myocardial infarction. Patient was seen and examined this morning, he is feeling better overall, continues to have some mild wheezing, continues to cough. Echo cardiac exam with Doppler study revealed a normal ejection fraction. LA severely dilated. Mild to moderate mitral regurgitation. 11/18/2017 Patient seen and examined this morning, continues to have cough, not much sputum production according to the patient. Very wheezy today. Pressure 117/ 60 with a heart rate in the 60s, 96% on room air. INR 2.7, BUN 62, creatinine 2.2. 11/19/2017 Patient seen and examined this morning, continues to have a harsh tight cough with decreased air exchange. Hemodynamically stable. Objective - Vital Signs Vital signs: Vital Signs Temp 97.6 F 11/19/17 12:00 Pulse 61 11/19/17 12:00 Resp 20 11/19/17 12:00 BP 123/62 11/19/17 12:00 Pulse Ox 95 11/19/17 12:00 Intake & Output 11/18/17 11/19/17 11/19/17 18:59 06:59 18:59 Intake Total 960 480 180 Balance 960 480 180 Weight 110.5 kg Intake: Oral 960 480 180 Other: Voiding Method Toilet Urinal # Voids 1 0 - Exam PHYSICAL EXAMINATION: HEENT: Head is atraumatic, normocephalic. Pupils equal, round. Sclera anicteric. Conjunctiva are clear. Mucous membranes of the mouth are moist. Neck is supple. There is no elevated jugular venous pressure.] bruit is heard. HEART EXAMINATION: S1 and S2 irregularly irregular systolic murmur heard CHEST EXAMINATION: Reveal bilateral scattered rhonchi and wheezing throughout ABDOMEN: Soft, nontender. Bowel sounds are heard. No organomegaly noted. EXTREMITIES: 2+ peripheral pulses with no evidence of peripheral edema and no calf tenderness noted. NEUROLOGIC patient is awake, alert and oriented ?-3. . - Labs CBC & Chem 7: 11/19/17 06:04 11/19/17 06:04 Labs: Abnormal Lab Results - Last 24 Hours (Table) 11/18/17 11/18/17 11/19/17 Range/Units 16:27 20:54 05:52 WBC (3.8-10.6) k/uL RBC (4.30-5.90) m/uL Hgb (13.0-17.5) gm/dL Hct (39.0-53.0) % Neutrophils # (1.3-7.7) k/uL Lymphocytes # (1.0-4.8) k/uL PT (9.0-12.0) sec INR (<1.2) Sodium (137-145) mmol/L BUN (9-20) mg/dL Creatinine (0.66-1.25) mg/dL Glucose (74-99) mg/dL POC Glucose (mg/dL) 333 H 341 H 226 H (75-99) mg/dL 11/19/17 11/19/17 11/19/17 Range/Units 06:04 06:04 06:04 WBC 11.1 H (3.8-10.6) k/uL RBC 3.87 L (4.30-5.90) m/uL Hgb 11.6 L (13.0-17.5) gm/dL Hct 35.1 L (39.0-53.0) % Neutrophils # 9.4 H (1.3-7.7) k/uL Lymphocytes # 0.9 L (1.0-4.8) k/uL PT 17.6 H (9.0-12.0) sec INR 1.9 H (<1.2) Sodium 134 L (137-145) mmol/L BUN 69 H (9-20) mg/dL Creatinine 2.20 H (0.66-1.25) mg/dL Glucose 220 H (74-99) mg/dL POC Glucose (mg/dL) (75-99) mg/dL 11/19/17 Range/Units 11:47 WBC (3.8-10.6) k/uL RBC (4.30-5.90) m/uL Hgb (13.0-17.5) gm/dL Hct (39.0-53.0) % Neutrophils # (1.3-7.7) k/uL Lymphocytes # (1.0-4.8) k/uL PT (9.0-12.0) sec INR (<1.2) Sodium (137-145) mmol/L BUN (9-20) mg/dL Creatinine (0.66-1.25) mg/dL Glucose (74-99) mg/dL POC Glucose (mg/dL) 177 H (75-99) mg/dL Microbiology - Last 24 Hours (Table) 11/15/17 13:46 Blood Culture - Preliminary Blood No Growth after 72 hours Assessment and Plan Plan: Assessment and plan #1 acute hypoxic respiratory failure secondary to COPD exacerbation and purulent tracheobronchitis #2 obstructive sleep apnea #3 acute on chronic renal failure #4 chronic persistent atrial fibrillation anticoagulated with Coumadin #5 hypertension #6 hyperlipidemia #7 diabetes #8 history of prostate cancer Plan From cardiology's perspective, we will follow this patient with you now on an as -needed basis only, please don't hesitate to call if you have any questions. DNP note has been reviewed, I agree with a documented findings and plan of care. Patient was seen and examined.
== END 2017-11-19 14:41 | disposition home health service (06) | DRG 190 ==
LOC: EC 11:11 → 6SEL 15:54
PROVIDERS: ADMIT Hospitalist; ATTEND Hospitalist
DX: J44.0 Chronic obstructive pulmonary disease with (acute) lower respiratory infection (principal); I21.A1 Myocardial infarction type 2; J96.01 Acute respiratory failure with hypoxia; I50.33 Acute on chronic diastolic (congestive) heart failure; E87.1 Hypo-osmolality and hyponatremia; I13.0 Hypertensive heart and chronic kidney disease with heart failure and stage 1 through stage 4 chronic kidney disease, or unspecified chronic kidney disease; N17.9 Acute kidney failure, unspecified; J44.1 Chronic obstructive pulmonary disease with (acute) exacerbation; J20.9 Acute bronchitis, unspecified; E11.22 Type 2 diabetes mellitus with diabetic chronic kidney disease; E11.65 Type 2 diabetes mellitus with hyperglycemia; E66.9 Obesity, unspecified; E78.5 Hyperlipidemia, unspecified; G47.33 Obstructive sleep apnea (adult) (pediatric); I25.10 Atherosclerotic heart disease of native coronary artery without angina pectoris; I27.20 Pulmonary hypertension, unspecified; I34.0 Nonrheumatic mitral (valve) insufficiency; I48.2 Chronic atrial fibrillation; J84.10 Pulmonary fibrosis, unspecified; M19.90 Unspecified osteoarthritis, unspecified site; N18.3 Chronic kidney disease, stage 3 (moderate); T38.0X5A Adverse effect of glucocorticoids and synthetic analogues, initial encounter; Z68.33 Body mass index [BMI] 33.0-33.9, adult; Z79.01 Long term (current) use of anticoagulants; Z79.4 Long term (current) use of insulin; Z79.51 Long term (current) use of inhaled steroids; Z79.52 Long term (current) use of systemic steroids; Z79.899 Other long term (current) drug therapy; Z85.46 Personal history of malignant neoplasm of prostate; Z85.828 Personal history of other malignant neoplasm of skin; Z87.891 Personal history of nicotine dependence; Z90.49 Acquired absence of other specified parts of digestive tract; Z93.3 Colostomy status; Z95.0 Presence of cardiac pacemaker; Z88.6 Allergy status to analgesic agent; Z88.8 Allergy status to other drugs, medicaments and biological substances; Z98.42 Cataract extraction status, left eye; Z98.41 Cataract extraction status, right eye
CPT/HCPCS: 36415; 71046; 80048; 80053; 81001; 82550; 82553; 83036; 83605; 83735; 83880; 84484; 85025; 85610; 85730; 87040; 93306; 94640; 94760; 96374; 96375; 99285

== ENCOUNTER 2019-01-08 10:45 | Emergency (ER) | payer MEDICARE, BC ==
[2019-01-08] MEDS ORDERED: HYDROcodone/APAP 5-325MG 1 EACH TAB PO STA (11:53)
--- NOTE | 2019-01-08 12:13 | ED ---
Lower Extremity Injury HPI - General Chief Complaint: Extremity Injury, Lower Stated Complaint: Hip pain Time Seen by Provider: 01/08/19 11:31 Source: patient, RN notes reviewed, old records reviewed Mode of arrival: ambulatory Limitations: no limitations - History of Present Illness Initial Comments: Scott is a 83-year-old male coming presents medicine department today with hip pain. Patient reports that he woke up with significant left hip pain on Wednesday morning. He reports he's had no fall or trauma. Patient states that he is unable to bear any weight onto the hip. He states he has had a history of back problems. He states is been taking some Tylenol for pain and has not been taking it today. Patient has had no recent fevers or chills. Denies any saddle anesthesias or bowel changes. - Related Data Home Medications Medication Instructions Recorded Confirmed Atorvastatin [Lipitor] 80 mg PO HS 07/09/14 11/15/17 Venlafaxine HCl [Effexor] 75 mg PO BID 07/09/14 11/15/17 Furosemide [Lasix] 40 mg PO DAILY 05/17/15 11/15/17 Ferrous Sulfate [Iron (65 MG 325 mg PO DAILY 08/06/15 11/15/17 Elemental)] INSULIN ASPART (NovoLOG) [NovoLOG See Protocol SQ AC-TID 08/06/15 11/15/17 (formulary)] Insulin Glargine [Lantus] 40 unit SQ HS 08/06/15 11/15/17 Lisinopril [Zestril] 20 mg PO DAILY 08/06/15 11/15/17 amLODIPine [Norvasc] 5 mg PO BID 08/06/15 11/15/17 Albuterol Nebulized [Ventolin 2.5 mg INHALATION RT-QID 01/27/16 11/15/17 Nebulized] Budesonide-Formot 160-4.5 Mcg 2 puff INHALATION RT-BID 01/27/16 11/15/17 [Symbicort 160-4.5 Mcg Inhaler] Tamsulosin [Flomax] 0.4 mg PO DAILY 01/27/16 11/15/17 Bicalutamide [Casodex] 50 mg PO DAILY 11/15/17 11/15/17 Calcium/Vit D3 600mg/800iu 1 tab PO BID 11/15/17 11/15/17 Gabapentin [Neurontin] 300 mg PO BID 11/15/17 11/15/17 Previous Rx's Medication Instructions Recorded Cefuroxime Axetil [Ceftin] 500 mg PO BID #10 tab 11/19/17 Warfarin Sodium [Coumadin] 2 mg PO DAILY 30 Days #60 tablet 11/19/17 predniSONE 10 mg PO DAILY 12 Days #30 tab 11/19/17 Acetaminophen with Codeine 1 tab PO Q6H PRN 3 Days #12 tab 01/08/19 [Tylenol w/codeine #3] Allergies Allergy/AdvReac Type Severity Reaction Status Date / Time adhesive Allergy blisters, Verified 01/08/19 11:17 skin peels ibuprofen [From Motrin] Allergy Abdominal Verified 01/08/19 11:17 Pain Review of Systems ROS Statement: Those systems with pertinent positive or pertinent negative responses have been documented in the HPI. ROS Other: All systems not noted in ROS Statement are negative. 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 History of Any Multi-Drug Resistant Organisms: None Reported Past Surgical History: Back Surgery, Bowel Resection, Cardiac Ablation, Heart Catheterization, Orthopedic Surgery, Pacemaker Additional Past Surgical History / Comment(s): back surgery x2 (has cage), bowel surgery for perforation with colostomy/colostomy later reversed, nasal surgery for polyps, otoniel cataracts, arthroscopy rt knee Past Anesthesia/Blood Transfusion Reactions: No Reported Reaction Type of Cardiac Device: Permanent Pacemaker Device Placement Date:: 2013 Past Psychological History: Depression Smoking Status: Former smoker - Past Family History Mother Family Medical History: Cancer Additional Family Medical History / Comment(s): brain Sister(s) Family Medical History: Cancer Additional Family Medical History / Comment(s): breast General Exam - General Exam Comments Initial Comments: Patient is an 83-year-old male. Alert and oriented 3. Patient appears in no significant distress. Limitations: no limitations General appearance: alert, in no apparent distress Head exam: Present: atraumatic, normocephalic, normal inspection Eye exam: Present: normal appearance, PERRL, EOMI. Absent: scleral icterus, conjunctival injection, periorbital swelling ENT exam: Present: normal exam, mucous membranes moist Neck exam: Present: normal inspection. Absent: tenderness, meningismus, lymphadenopathy Respiratory exam: Present: normal lung sounds bilaterally. Absent: respiratory distress, wheezes, rales, rhonchi, stridor Cardiovascular Exam: Present: regular rate, normal rhythm, normal heart sounds. Absent: systolic murmur, diastolic murmur, rubs, gallop, clicks GI/Abdominal exam: Present: soft, normal bowel sounds. Absent: distended, tenderness, guarding, rebound, rigid Extremities exam: Present: normal inspection, full ROM, normal capillary refill. Absent: tenderness, pedal edema, joint swelling, calf tenderness Left Hip exam: Present: normal inspection, tenderness. Absent: full ROM (pain withexternal rotaton) Upper Leg exam: Present: normal inspection, full ROM, tenderness (over thigh and greater trochanter), swelling Knee exam: Present: normal inspection, full ROM Lower Leg exam: Present: normal inspection, full ROM Ankle exam: Present: normal inspection, full ROM Gait: unable to bear weight Back exam: Present: normal inspection Neurological exam: Present: alert, oriented X3, CN II-XII intact Psychiatric exam: Present: normal affect, normal mood Skin exam: Present: warm, dry, intact, normal color. Absent: rash Course Vital Signs 01/08/19 11:15 Temperature 97.8 F Pulse Rate 78 Respiratory 18 Rate Blood Pressure 112/66 O2 Sat by Pulse 98 Oximetry Medical Decision Making - Medical Decision Making 83-year-old male presents today with waking up for a few days of complaining of left Chronic pain from time to time. He is worse over the past few days. Patient this time denies any fall or trauma. He states he's been told in the past that he's had the wrong with this happened 10 x-rays with show no acute changes. Patient reports pain with bearing weight. Has normal pulses distally. Has some tenderness over the greater trochanter. Patient was given by mouth [place], CT of the pelvis and hip were completed. This is negative for any fracture but is evidence of degenerative changes. Also noted thickening of bladder. Patient denies any discharge or pain with urination. Patient was informed that he likely needs to have follow-up with orthopedic, his he could benefit from possible injections or possible hip replacement. Patient will be discharged at this time a short course of pain meds until he can follow up or so. All questions were answered return parameters were discussed. - Radiology Data Radiology results: report reviewed X-rays negative for any acute osseous lesion. Postsurgical changes are noted within the pelvis. On top. Diverticulosis of the sigmoid colon. Thickening of the bladder wall likely due to bladder outlet obstruction. Mild degenerative changes in both hips. Disposition Clinical Impression: Left hip pain, Arthritis of left hip Disposition: HOME SELF-CARE Condition: Good Instructions (If sedation given, give patient instructions): Hip Bursitis (ED), Osteoarthritis (ED) Additional Instructions: Please use medication as discussed. Please follow up with ortho and family doctor if symptoms have not improved over the next two days. Please return to the emergency room if your symptoms increase or worsen or for any other concerns. Prescriptions: Acetaminophen with Codeine [Tylenol w/codeine #3] 1 tab PO Q6H PRN 3 Days #12 tab PRN Reason: Pain Is patient prescribed a controlled substance at d/c from ED?: Yes If prescribed controlled substance>3 days was MAPS reviewed?: Prescribed <3 Days If opioid is for acute pain is fill amount 7 days or less?: Yes If Rx opioid, was Start Talking consent form obtained?: Yes Referrals: [facility],Clinic [Primary Care Provider] - 1-2 days Praveen Galvez DO [Doctor of Osteopathic Medicine] - 1-2 days Benito Jay DO [Doctor of Osteopathic Medicine] - 1-2 days Time of Disposition: 13:43
--- NOTE | 2019-01-08 12:54 | CT ---
EXAMINATION TYPE: CT pelvis wo con, CT hip LT wo con DATE OF EXAM: 01/08/2019 COMPARISON: None. HISTORY: Left hip pain, inability to bear weight CT DLP: 861.6 (accession [id number]), included in pelvis (accession [id number]) mGycm Automated exposure control for dose reduction was used. FINDINGS: There has been a previous interpedicular fusion of the lower lumbar spine. The upper extent of this is not visualized. There is moderate atheromatous calcification of the visualized arterial vessels. There are prostate seeds in place. The bladder wall is somewhat thickened. This may reflect bilateral obstruction. There is been a previous sigmoid resection. There are scattered remaining diverticula present. There is no radiographic evidence of diverticulitis. There is no free fluid and no free air. There is degenerative change present in both hips. No hip fracture is seen. No pelvic fracture is see n. There are mild degenerative changes in both hips. The soft tissues surrounding the hips appear nor mal. There are vacuum phenomena present in both SI joints. No sacral fracture is seen. IMPRESSION: 1. NO ACUTE OSSEOUS LESION. 2. POSTSURGICAL CHANGE WITHIN THE PELVIS. 3. UNCOMPLICATED DIVERTICULOSIS OF THE SIGMOID COLON. 4. THICKENING OF THE BLADDER WALL LIKELY DUE TO BLADDER OUTLET OBSTRUCTION. 5. MILD DEGENERATIVE CHANGE OF BOTH HIPS.
[2019-01-08 14:05] VITALS: BP 141/78; PULSE 74; RESP 16; TEMP 98.3
== END 2019-01-08 14:05 | disposition home or self-care (01) ==
LOC: EC 10:45
DX: M16.12 Unilateral primary osteoarthritis, left hip (principal); I48.91 Unspecified atrial fibrillation; J44.9 Chronic obstructive pulmonary disease, unspecified; E11.9 Type 2 diabetes mellitus without complications; E78.5 Hyperlipidemia, unspecified; G47.30 Sleep apnea, unspecified; Z85.46 Personal history of malignant neoplasm of prostate; Z85.828 Personal history of other malignant neoplasm of skin; Z95.818 Presence of other cardiac implants and grafts; Z95.0 Presence of cardiac pacemaker; Z87.891 Personal history of nicotine dependence; Z79.4 Long term (current) use of insulin; Z79.51 Long term (current) use of inhaled steroids; Z79.899 Other long term (current) drug therapy; Z91.048 Other nonmedicinal substance allergy status; Z88.6 Allergy status to analgesic agent
CPT/HCPCS: 72192; 99284

== ENCOUNTER → 2019-02-02 | Outpatient (CLI) | payer MEDICARE, BC | END | disposition home or self-care (01) | LOC: RADCTMAIN 16:22 | PROVIDERS: ATTEND Physical Medicine & Rehabilitation | DX: M48.062 Spinal stenosis, lumbar region with neurogenic claudication (principal); M47.27 Other spondylosis with radiculopathy, lumbosacral region; M96.1 Postlaminectomy syndrome, not elsewhere classified; E11.9 Type 2 diabetes mellitus without complications; M16.12 Unilateral primary osteoarthritis, left hip; M25.552 Pain in left hip; Z85.46 Personal history of malignant neoplasm of prostate; Z98.890 Other specified postprocedural states; Z95.0 Presence of cardiac pacemaker; Z79.01 Long term (current) use of anticoagulants; Z88.6 Allergy status to analgesic agent | CPT/HCPCS: 82565; 84520 ==

== ENCOUNTER → 2019-02-06 | Outpatient (CLI) | payer MEDICARE, BC ==
--- NOTE | 2019-02-06 11:44 | CT ---
EXAMINATION TYPE: CT lumbar spine wo con DATE OF EXAM: 02/06/2019 COMPARISON: None HISTORY: Radiculopathy of lumbar spine with pain CT DLP: 2138.7 mGycm CONTRAST: None TECHNIQUE: CT of the lumbar spine is performed on a spiral scan at 3 mm thick sections. Reconstructed images are performed in the coronal and sagittal planes. FINDINGS: Pedicle screws are present L2-S1. There is straightening of the lumbar spine in the sagitta l plane. Vacuum disc phenomenon is present L1 and L2 and some mild vacuum disc phenomenon is present at T11-T12. There is loss of disc height L2-S1. Multilevel facet degenerative changes are present. No spinal canal stenosis is present. Some L5-S1 foraminal narrowing is present. Lateral recesses are st enotic. Moderate to severe stenosis present left L2-3 and left L5-S1 and right L5-S1. IMPRESSION: 1. Bilateral Foraminal stenosis and lateral recess stenosis L5-S1 due to facet hypertrophy. 2. Foraminal stenosis left L2-3. 3. Postsurgical changes with pedicle screws L2-S1. Degenerative disc changes are present through thes e levels.
== END | disposition home or self-care (01) ==
LOC: RADCTMAIN 07:22
PROVIDERS: ATTEND Physical Medicine & Rehabilitation
DX: M48.061 Spinal stenosis, lumbar region without neurogenic claudication (principal); M48.07 Spinal stenosis, lumbosacral region; M47.26 Other spondylosis with radiculopathy, lumbar region; E11.9 Type 2 diabetes mellitus without complications; M16.12 Unilateral primary osteoarthritis, left hip; Z95.0 Presence of cardiac pacemaker; Z79.01 Long term (current) use of anticoagulants; Z88.6 Allergy status to analgesic agent; Z80.42 Family history of malignant neoplasm of prostate; Z98.890 Other specified postprocedural states
CPT/HCPCS: 72131

== ENCOUNTER 2019-02-14 15:34 | Emergency (ER) | payer MEDICARE, BC ==
[2019-02-14 15:39] LABS: Glucose,Whole Blood 469 mg/dL (75-99)
[2019-02-14 15:46] VITALS: RESP 18
[2019-02-14] MEDS ORDERED: SODIUM CHLORIDE 0.9% 1,000 ML IV STA (16:08)
[2019-02-14] MEDS ORDERED: SODIUM CHLORIDE 0.9% 500 ML 500 ML IV STA (16:13)
[2019-02-14 16:36] LABS: Basophils % (A) 0 %; Eosinophils % (A) 1 %; HCT 36.2 % (39.0-53.0); Lymphocytes # (A) 0.4 k/uL (1.0-4.8); Lymphocytes % (A) 8 %; MCH 31.1 pg (25.0-35.0); MCHC 33.1 g/dL (31.0-37.0); Mean Platelet Volume 9.1; Monocytes # (A) 0.1 k/uL (0-1.0); Monocytes % (A) 2 %; Neutrophils # (A) 4.5 k/uL (1.3-7.7); Neutrophils % (A) 88 %; Platelet Count 194 k/uL (150-450); RBC 3.84 m/uL (4.30-5.90); WBC 5.2 k/uL (3.8-10.6)
--- NOTE | 2019-02-14 16:39 | ED ---
Recheck HPI - General Chief Complaint: Recheck/Abnormal Lab/Rx Stated Complaint: High sugar Time Seen by Provider: 02/14/19 15:53 Source: patient Mode of arrival: wheelchair Limitations: no limitations - History of Present Illness Initial Comments: Patient is an 83-year-old male presenting to the emergency Department with complaints of elevated blood glucose levels that started this morning. Patient is a type II diabetic. Patient states he received a steroid injection today for his back pain at approximately 9:30 AM. Patient states his checked his sugar at 2:30 and it was in the 400s. gave him 20 units of insulin. then brought patient to the ER. In the ER triage, sugar was still 469. Patient ate an apple on the way to the ER. Patient has no complaints at this time. He states he's been feeling fatigued over the last couple days but otherwise feels normal. She states she is also not ate his normal meals today as he did have some appointments. There are no other complaints at this time. Patient denies fever, chills, abdominal pain, nausea, vomiting, headache, shortness of breath, chest pain. Upon arrival to ER, vital signs are stable. - Related Data Home Medications Medication Instructions Recorded Confirmed Atorvastatin [Lipitor] 80 mg PO HS 07/09/14 02/14/19 Venlafaxine HCl [Effexor] 75 mg PO BID 07/09/14 02/14/19 Furosemide [Lasix] 40 mg PO DAILY 05/17/15 02/14/19 Ferrous Sulfate [Iron (65 MG 325 mg PO DAILY 08/06/15 02/14/19 Elemental)] INSULIN ASPART (NovoLOG) [NovoLOG See Protocol SQ AC-TID 08/06/15 02/14/19 (formulary)] Insulin Glargine [Lantus] 40 unit SQ HS 08/06/15 02/14/19 Lisinopril [Zestril] 20 mg PO DAILY 08/06/15 02/14/19 amLODIPine [Norvasc] 5 mg PO BID 08/06/15 02/14/19 Albuterol Nebulized [Ventolin 2.5 mg INHALATION RT-QID 01/27/16 02/14/19 Nebulized] Budesonide-Formot 160-4.5 Mcg 2 puff INHALATION RT-BID 01/27/16 02/14/19 [Symbicort 160-4.5 Mcg Inhaler] Tamsulosin [Flomax] 0.4 mg PO DAILY 01/27/16 02/14/19 Bicalutamide [Casodex] 50 mg PO DAILY 11/15/17 02/14/19 Calcium/Vit D3 600mg/800iu 1 tab PO BID 11/15/17 02/14/19 Gabapentin [Neurontin] 300 mg PO BID 11/15/17 02/14/19 Warfarin [Coumadin] 5 mg PO HS 02/14/19 02/14/19 Allergies Allergy/AdvReac Type Severity Reaction Status Date / Time adhesive Allergy blisters, Verified 02/14/19 16:21 skin peels ibuprofen [From Motrin] AdvReac Abdominal Verified 02/14/19 16:21 Pain Review of Systems ROS Statement: Those systems with pertinent positive or pertinent negative responses have been documented in the HPI. ROS Other: All systems not noted in ROS Statement are negative. 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 History of Any Multi-Drug Resistant Organisms: None Reported Past Surgical History: Back Surgery, Bowel Resection, Cardiac Ablation, Heart Catheterization, Orthopedic Surgery, Pacemaker Additional Past Surgical History / Comment(s): back surgery x2 (has cage), bowel surgery for perforation with colostomy/colostomy later reversed, nasal surgery for polyps, otoniel cataracts, arthroscopy rt knee Past Anesthesia/Blood Transfusion Reactions: No Reported Reaction Type of Cardiac Device: Permanent Pacemaker Device Placement Date:: 2013 Past Psychological History: Anxiety Smoking Status: Former smoker Past Alcohol Use History: None Reported Past Drug Use History: None Reported - Past Family History Mother Family Medical History: Cancer Additional Family Medical History / Comment(s): brain Sister(s) Family Medical History: Cancer Additional Family Medical History / Comment(s): breast General Exam - General Exam Comments Initial Comments: GENERAL: Well-appearing, well-nourished and in no acute distress. HEAD: Atraumatic, normocephalic. EYES: Pupils equal round and reactive to light, extraocular movements intact, sclera anicteric, conjunctiva are normal. ENT: TMs normal, nares patent, oropharynx clear without exudates. Moist mucous membranes. NECK: Normal range of motion, supple without lymphadenopathy or JVD. LUNGS: Breath sounds clear to auscultation bilaterally and equal. No wheezes rales or rhonchi. HEART: Regular rate and rhythm without murmurs, rubs or gallops. ABDOMEN: Soft, nontender, normoactive bowel sounds. No guarding, no rebound. No masses appreciated. : Deferred EXTREMITIES: Normal range of motion, no pitting or edema. No clubbing or cyanosis. NEUROLOGICAL: Cranial nerves II through XII grossly intact. Normal speech, normal gait. PSYCH: Normal mood, normal affect. SKIN: Warm, Dry, normal turgor, no rashes or lesions noted. Limitations: no limitations Course Vital Signs 02/14/19 02/14/19 15:40 18:29 Temperature 97.9 F 98.4 F Pulse Rate 61 66 Respiratory 18 18 Rate Blood Pressure 104/51 135/64 O2 Sat by Pulse 96 95 Oximetry Medical Decision Making - Medical Decision Making Patient is an 83-year-old male presenting with high blood sugar that started this morning. Patient received a steroid injection which is increased his glucose levels. Patient is a type II diabetic. Patient was given 20 units of insulin prior to arrival. Sugar was 469 on arrival. Patient was given a half liter bolus and sugar was rechecked which was 343. Patient was then given 6 units of insulin, sugar was 305. Patient is requesting to be discharged. Patient's will continue to monitor her glucose levels and will follow-up with primary care tomorrow if needed. Patient and patient's are in agreement with this plan of care. Return parameters were discussed with them and they verbalized understanding. Case discussed with Dr. Payne. - Lab Data Result diagrams: 02/14/19 16:20 02/14/19 16:20 Lab Results 02/14/19 02/14/19 02/14/19 Range/Units 15:37 16:20 16:20 WBC 5.2 (3.8-10.6) k/uL RBC 3.84 L (4.30-5.90) m/uL Hgb 12.0 L (13.0-17.5) gm/dL Hct 36.2 L (39.0-53.0) % MCV 94.0 (80.0-100.0) fL MCH 31.1 (25.0-35.0) pg MCHC 33.1 (31.0-37.0) g/dL RDW 13.0 (11.5-15.5) % Plt Count 194 (150-450) k/uL Neutrophils % 88 % Lymphocytes % 8 % Monocytes % 2 % Eosinophils % 1 % Basophils % 0 % Neutrophils # 4.5 (1.3-7.7) k/uL Lymphocytes # 0.4 L (1.0-4.8) k/uL Monocytes # 0.1 (0-1.0) k/uL Eosinophils # 0.0 (0-0.7) k/uL Basophils # 0.0 (0-0.2) k/uL Sodium 135 L (137-145) mmol/L Potassium 5.2 H (3.5-5.1) mmol/L Chloride 101 (98-107) mmol/L Carbon Dioxide 20 L (22-30) mmol/L Anion Gap 14 mmol/L BUN 28 H (9-20) mg/dL Creatinine 1.88 H (0.66-1.25) mg/dL Est GFR (CKD-EPI)AfAm 38 (>60 ml/min/1.73 sqM) Est GFR (CKD-EPI)NonAf 33 (>60 ml/min/1.73 sqM) Glucose 404 H (74-99) mg/dL POC Glucose (mg/dL) 469 H (75-99) mg/dL POC Glu Cafeteria Director ID Brielle Connors Calcium 9.2 (8.4-10.2) mg/dL Total Bilirubin 0.6 (0.2-1.3) mg/dL AST 27 (17-59) U/L ALT 19 L (21-72) U/L Alkaline Phosphatase 102 (38-126) U/L Total Protein 6.5 (6.3-8.2) g/dL Albumin 4.0 (3.5-5.0) g/dL 10/29/19 10/29/19 Range/Units 17:02 18:15 WBC (3.8-10.6) k/uL RBC (4.30-5.90) m/uL Hgb (13.0-17.5) gm/dL Hct (39.0-53.0) % MCV (80.0-100.0) fL MCH (25.0-35.0) pg MCHC (31.0-37.0) g/dL RDW (11.5-15.5) % Plt Count (150-450) k/uL Neutrophils % % Lymphocytes % % Monocytes % % Eosinophils % % Basophils % % Neutrophils # (1.3-7.7) k/uL Lymphocytes # (1.0-4.8) k/uL Monocytes # (0-1.0) k/uL Eosinophils # (0-0.7) k/uL Basophils # (0-0.2) k/uL Sodium (137-145) mmol/L Potassium (3.5-5.1) mmol/L Chloride (98-107) mmol/L Carbon Dioxide (22-30) mmol/L Anion Gap mmol/L BUN (9-20) mg/dL Creatinine (0.66-1.25) mg/dL Est GFR (CKD-EPI)AfAm (>60 ml/min/1.73 sqM) Est GFR (CKD-EPI)NonAf (>60 ml/min/1.73 sqM) Glucose (74-99) mg/dL POC Glucose (mg/dL) 343 H 305 H (75-99) mg/dL POC Glu Cafeteria Director ID Salgat, Lulu Salgat, Lulu Calcium (8.4-10.2) mg/dL Total Bilirubin (0.2-1.3) mg/dL AST (17-59) U/L ALT (21-72) U/L Alkaline Phosphatase (38-126) U/L Total Protein (6.3-8.2) g/dL Albumin (3.5-5.0) g/dL Disposition Clinical Impression: Hyperglycemia due to type 2 diabetes mellitus Disposition: HOME SELF-CARE Condition: Stable Instructions (If sedation given, give patient instructions): Diabetic Hyperglycemia (ED) Additional Instructions: Please return to the Emergency Department if symptoms worsen or any other concerns. Continue to monitor her glucose levels. Continue to increase fluid intake. Follow-up with PCP if blood sugar continues to be high. Is patient prescribed a controlled substance at d/c from ED?: No Referrals: [facility],Clinic [Primary Care Provider] - 1-2 days
[2019-02-14 16:40] LABS: Calcium 9.2 mg/dL (8.4-10.2); Potassium 5.2 mmol/L (3.5-5.1); Total Bilirubin 0.6 mg/dL (0.2-1.3); Total Protein 6.5 g/dL (6.3-8.2)
[2019-02-14 17:05] LABS: Glucose,Whole Blood 343 mg/dL (75-99)
[2019-02-14] MEDS ORDERED: INSULIN ASPART (NovoLOG) 100 UNIT/ML VIAL SQ ONE (17:08)
[2019-02-14 18:16] LABS: Glucose,Whole Blood 305 mg/dL (75-99)
[2019-02-14 18:31] VITALS: BP 135/64; PULSE 66; TEMP 98.4
== END 2019-02-14 18:39 | disposition home or self-care (01) ==
LOC: EC 15:34
DX: T38.0X5A Adverse effect of glucocorticoids and synthetic analogues, initial encounter (principal); E09.65 Drug or chemical induced diabetes mellitus with hyperglycemia; M54.9 Dorsalgia, unspecified; I48.91 Unspecified atrial fibrillation; J44.9 Chronic obstructive pulmonary disease, unspecified; E78.5 Hyperlipidemia, unspecified; G47.30 Sleep apnea, unspecified; F41.9 Anxiety disorder, unspecified; Z87.891 Personal history of nicotine dependence; Z88.6 Allergy status to analgesic agent; Z91.048 Other nonmedicinal substance allergy status; Z79.4 Long term (current) use of insulin; Z79.01 Long term (current) use of anticoagulants; Z79.51 Long term (current) use of inhaled steroids; Z79.899 Other long term (current) drug therapy; Z85.46 Personal history of malignant neoplasm of prostate; Z85.828 Personal history of other malignant neoplasm of skin; Z86.69 Personal history of other diseases of the nervous system and sense organs; Z95.0 Presence of cardiac pacemaker; Z98.890 Other specified postprocedural states; Z99.89 Dependence on other enabling machines and devices; Z53.8 Procedure and treatment not carried out for other reasons
CPT/HCPCS: 36415; 80053; 85025; 96360; 99284

== ENCOUNTER → 2019-03-13 | Outpatient (CLI) | payer MEDICARE, BC | END | disposition home or self-care (01) | LOC: LABWHC1 09:07 | PROVIDERS: ATTEND Physical Medicine & Rehabilitation | DX: M47.817 Spondylosis without myelopathy or radiculopathy, lumbosacral region (principal); M96.1 Postlaminectomy syndrome, not elsewhere classified; E11.9 Type 2 diabetes mellitus without complications; M48.062 Spinal stenosis, lumbar region with neurogenic claudication; M16.12 Unilateral primary osteoarthritis, left hip; M25.552 Pain in left hip; G62.9 Polyneuropathy, unspecified; M51.17 Intervertebral disc disorders with radiculopathy, lumbosacral region; Z88.6 Allergy status to analgesic agent; Z95.0 Presence of cardiac pacemaker; Z79.01 Long term (current) use of anticoagulants; C61 Malignant neoplasm of prostate; Z98.890 Other specified postprocedural states | CPT/HCPCS: 36415; 85610 ==

== ENCOUNTER 2019-05-01 05:18 | Inpatient (IN) | payer MEDICARE, BC ==
[2019-05-01] MEDS ORDERED: SODIUM CHLORIDE 0.9% 1,000 ML IV STA (05:45)
[2019-05-01] MEDS ORDERED: MORPHINE SULFATE 4 MG/ML SYRINGE IVP STA (05:53)
--- NOTE | 2019-05-01 05:58 | ED ---
Abdominal Pain HPI - General Source: patient, EMS Mode of arrival: EMS Limitations: no limitations <Radha Walters - Last Filed: 05/01/19 05:51> <Geraldo Saini - Last Filed: 05/01/19 07:45> - General Chief Complaint: Abdominal Pain Stated Complaint: Abd Pain - History of Present Illness Initial Comments: Mario is an 86-year-old gentleman with history of small bowel obstruction with bowel perforation subsequent colostomy and reversal. Patient since the emergency department today via ambulance for evaluation of severe midline abdominal pain that began yesterday and has been progressively worsening. Patient reports pain is just left of midline, severe worse with palpation area patient reports he had a small bowel movement today. No pain with urination. Feels somewhat nauseated no appetite. (Radha Walters) - Related Data Home Medications Medication Instructions Recorded Confirmed Atorvastatin [Lipitor] 80 mg PO HS 07/09/14 02/14/19 Venlafaxine HCl [Effexor] 75 mg PO BID 07/09/14 02/14/19 Furosemide [Lasix] 40 mg PO DAILY 05/17/15 02/14/19 Ferrous Sulfate [Iron (65 MG 325 mg PO DAILY 08/06/15 02/14/19 Elemental)] INSULIN ASPART (NovoLOG) [NovoLOG See Protocol SQ AC-TID 08/06/15 02/14/19 (formulary)] Insulin Glargine [Lantus] 40 unit SQ HS 08/06/15 02/14/19 Lisinopril [Zestril] 20 mg PO DAILY 08/06/15 02/14/19 amLODIPine [Norvasc] 5 mg PO BID 08/06/15 02/14/19 Albuterol Nebulized [Ventolin 2.5 mg INHALATION RT-QID 01/27/16 02/14/19 Nebulized] Budesonide-Formot 160-4.5 Mcg 2 puff INHALATION RT-BID 01/27/16 02/14/19 [Symbicort 160-4.5 Mcg Inhaler] Tamsulosin [Flomax] 0.4 mg PO DAILY 01/27/16 02/14/19 Bicalutamide [Casodex] 50 mg PO DAILY 11/15/17 02/14/19 Calcium/Vit D3 600mg/800iu 1 tab PO BID 11/15/17 02/14/19 Gabapentin [Neurontin] 300 mg PO BID 11/15/17 02/14/19 Warfarin [Coumadin] 5 mg PO HS 02/14/19 02/14/19 Allergies Allergy/AdvReac Type Severity Reaction Status Date / Time adhesive Allergy blisters, Verified 02/14/19 16:21 skin peels ibuprofen [From Motrin] AdvReac Abdominal Verified 02/14/19 16:21 Pain Review of Systems ROS Other: All systems not noted in ROS Statement are negative. <Radha Walters - Last Filed: 05/01/19 05:51> ROS Other: All systems not noted in ROS Statement are negative. <Geraldo Saini - Last Filed: 05/01/19 07:45> ROS Statement: Those systems with pertinent positive or pertinent negative responses have been documented in the HPI. 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 History of Any Multi-Drug Resistant Organisms: None Reported Past Surgical History: Back Surgery, Bowel Resection, Cardiac Ablation, Heart Catheterization, Orthopedic Surgery, Pacemaker Additional Past Surgical History / Comment(s): back surgery x2 (has cage), bowel surgery for perforation with colostomy/colostomy later reversed, nasal surgery for polyps, otoniel cataracts, arthroscopy rt knee Past Anesthesia/Blood Transfusion Reactions: No Reported Reaction Type of Cardiac Device: Permanent Pacemaker Device Placement Date:: 2013 Past Psychological History: Anxiety Smoking Status: Former smoker Past Alcohol Use History: None Reported Past Drug Use History: None Reported - Past Family History Mother Family Medical History: Cancer Additional Family Medical History / Comment(s): brain Sister(s) Family Medical History: Cancer Additional Family Medical History / Comment(s): breast <Radha Walters - Last Filed: 05/01/19 05:51> General Exam Limitations: no limitations <Radha Walters - Last Filed: 05/01/19 05:51> - General Exam Comments Initial Comments: Physical Exam GENERAL: Patient is well-developed and well-nourished. Patient is nontoxic and well- hydrated and is in no distress. HENT: Normocephalic, Atraumatic. EYES: PERRL, EOMI PULMONARY: Unlabored respirations. No audible rales rhonchi or wheezing was noted. CARDIOVASCULAR: There is a regular rate and rhythm without any murmurs gallops or rubs. ABDOMEN: Abdomen and is firm and distended, there is a palpable ventral versus incisional hernia left of the incision. Tenderness to palpation. SKIN: Skin is clear with no lesions or rashes and otherwise unremarkable. : Deferred NEUROLOGIC: Patient is alert and oriented x3. Moving all extremities spontaneously MUSCULOSKELETAL: Normal extremities with adequate strength and full range of motion. No lower extremity swelling or edema. No calf tenderness. PSYCHIATRIC: Normal psychiatric evaluation. (Radha Walters) Course Vital Signs 05/01/19 05/01/19 05:21 06:47 Temperature 97.1 F L Pulse Rate 65 63 Respiratory 18 18 Rate Blood Pressure 162/78 141/67 O2 Sat by Pulse 100 100 Oximetry Medical Decision Making <Radha Walters - Last Filed: 05/01/19 05:51> - Lab Data Result diagrams: 05/01/19 05:27 05/01/19 05:27 - Radiology Data Radiology results: report reviewed (Computed tomography scan of the abdomen and pelvis show findings for possible partial small bowel obstruction or early complete bowel obstruction. Left adrenal gland (rigid adenoma.) <Geraldo Saini - Last Filed: 05/01/19 07:45> - Medical Decision Making Patient was seen and evaluated history is obtained from patient and at bedside Labs and imaging were ordered morphine was ordered for pain management (Radha Walters) Patient endorsed to me by Dr. Walters who did talk to Dr. Pitt for admission. Patient reevaluated and resting comfortably in bed. Abdomen soft with mild diffuse tenderness. Patient states his discomfort is starting to return. Patient and family updated on results and plan. (Geraldo Saini) - Lab Data Lab Results 05/01/19 05/01/19 05/01/19 Range/Units 05:27 05:27 05:27 WBC 11.6 H (3.8-10.6) k/uL RBC 4.26 L (4.30-5.90) m/uL Hgb 12.6 L (13.0-17.5) gm/dL Hct 39.2 (39.0-53.0) % MCV 92.2 (80.0-100.0) fL MCH 29.7 (25.0-35.0) pg MCHC 32.2 (31.0-37.0) g/dL RDW 13.1 (11.5-15.5) % Plt Count 207 (150-450) k/uL Neutrophils % 87 % Lymphocytes % 6 % Monocytes % 4 % Eosinophils % 1 % Basophils % 1 % Neutrophils # 10.1 H (1.3-7.7) k/uL Lymphocytes # 0.7 L (1.0-4.8) k/uL Monocytes # 0.5 (0-1.0) k/uL Eosinophils # 0.2 (0-0.7) k/uL Basophils # 0.1 (0-0.2) k/uL Sodium 137 (137-145) mmol/L Potassium 4.4 (3.5-5.1) mmol/L Chloride 102 (98-107) mmol/L Carbon Dioxide 27 (22-30) mmol/L Anion Gap 8 mmol/L BUN 28 H (9-20) mg/dL Creatinine 1.58 H (0.66-1.25) mg/dL Est GFR (CKD-EPI)AfAm 47 (>60 ml/min/1.73 sqM) Est GFR (CKD-EPI)NonAf 40 (>60 ml/min/1.73 sqM) Glucose 238 H (74-99) mg/dL Plasma Lactic Acid Fabian 1.8 (0.7-2.0) mmol/L Calcium 9.6 (8.4-10.2) mg/dL Total Bilirubin 0.7 (0.2-1.3) mg/dL AST 29 (17-59) U/L ALT 19 (4-49) U/L Alkaline Phosphatase 126 (38-126) U/L Total Protein 6.9 (6.3-8.2) g/dL Albumin 4.3 (3.5-5.0) g/dL Lipase 68 (23-300) U/L Disposition <Radha Walters - Last Filed: 05/01/19 05:51> Is patient prescribed a controlled substance at d/c from ED?: No Decision Time: 07:45 <Geraldo Saini - Last Filed: 05/01/19 07:45> Clinical Impression: Bowel obstruction Disposition: ADMITTED IP TO THIS HOSP Referrals: [facility],Clinic [Primary Care Provider] - 1-2 days
[2019-05-01 06:05] LABS: Basophils # (A) 0.1 k/uL (0-0.2); Basophils % (A) 1 %; Eosinophils # (A) 0.2 k/uL (0-0.7); Eosinophils % (A) 1 %; HCT 39.2 % (39.0-53.0); HGB 12.6 gm/dL (13.0-17.5); Lymphocytes # (A) 0.7 k/uL (1.0-4.8); Lymphocytes % (A) 6 %; MCH 29.7 pg (25.0-35.0); MCHC 32.2 g/dL (31.0-37.0); MCV 92.2 fL (80.0-100.0); Mean Platelet Volume 10.5; Monocytes # (A) 0.5 k/uL (0-1.0); Monocytes % (A) 4 %; Neutrophils # (A) 10.1 k/uL (1.3-7.7); Neutrophils % (A) 87 %; Platelet Count 207 k/uL (150-450); RBC 4.26 m/uL (4.30-5.90); RDW 13.1 % (11.5-15.5); WBC 11.6 k/uL (3.8-10.6)
[2019-05-01 06:25] LABS: Albumin 4.3 g/dL (3.5-5.0); Calcium 9.6 mg/dL (8.4-10.2); Potassium 4.4 mmol/L (3.5-5.1); Total Bilirubin 0.7 mg/dL (0.2-1.3); Total Protein 6.9 g/dL (6.3-8.2)
--- NOTE | 2019-05-01 06:54 | XR ---
EXAM: XR Abdomen, 2 Views CLINICAL HISTORY: ITS.REASON XR Reason: abdominal pain TECHNIQUE: Frontal view of the abdomen/pelvis with upright view of the abdomen. COMPARISON: No relevant prior studies available. FINDINGS: Lower thorax: Posterior decompression and posterior osteophytic effusion involving the lumbar spine. Intraperitoneal space: No free air. Gastrointestinal tract: Scattered stool and gas of the colon. No bowel obstruction. Organs: Question cholelithiasis. Bones/joints: Unremarkable. Vasculature: Atherosclerotic calcifications of the splenic artery, iliac arteries, and femoral arteries. Other findings: No definite urolithiasis although CT is more sensitive. No hardware complications or failure. IMPRESSION: No acute disease or bowel obstruction.
--- NOTE | 2019-05-01 07:27 | CT ---
EXAMINATION TYPE: CT abdomen pelvis wo con DATE OF EXAM: 05/01/2019 COMPARISON: CT pelvis dated 01/08/2019 HISTORY: Mid abd pain CT DLP: 1073.2 mGycm Automated exposure control for dose reduction was used. TECHNIQUE: Helical acquisition of images was performed from the lung bases through the pelvis. 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 LIVER/GB: Radiopaque density, possible surgical clip is seen posterior to the right hepatic lobe. PANCREAS: Parenchymal atrophy without ductal dilatation. SPLEEN: No significant abnormality is seen. ADRENALS: There is a low-density benign 2.2 cm left lipid rich adrenal adenoma. Right adrenal gland i s unremarkable. KIDNEYS: Atherosclerosis is seen in the renal arteries. No hydronephrosis or nephrolithiasis. Inciden tally noted retroaortic left renal vein. FREE AIR: No free air is visualized ADENOPATHY: No greater than 1 cm short axis lymph node in the abdomen or pelvis. OSSEOUS STRUCTURES: There is surgical fusion of L2-S1. Severe multilevel degenerative change of the thoracolumbar spine and straightening of usual lumbar lordosis. BOWEL: Surgical anastomotic site of the sigmoid colon from prior resection. Few scattered colonic di verticula without pericolonic fat stranding. Nondistention of the left hemicolon limiting evaluation. Overall limitation in evaluation of the bowel given lack of intravenous contrast. Anastomotic site i s also seen of the small bowel in the central and left paracentral mid abdomen just above the level o f the umbilicus. At this location there are multiple prominent loops of fluid-filled small bowel cont aining air-fluid levels most of which measuring up to 3.0 cm. A single loop of small bowel at the macho stomotic site measures 4.9 cm. Small bowel is dilated both proximal to and distal to the anastomotic site and therefore anastomotic stricture is unlikely. Small bowel feces sign is seen in the right low er quadrant on image 59. Distally in the right lower quadrant there are multiple loops of decompresse d small bowel. Decompressed small bowel adjacent to dilated small bowel seen in the midabdomen on nelly ge 34 although the exact transition point is not clearly defined. Dilated and nondilated small bowel loops clustered catheter within the mid abdomen on axial image 36 and coronal image 39. OTHER: Prechemotherapy radiation seeds within the prostate gland. There is extensive atherosclerosis of the abdominal aorta and its branches. No portal venous gas or pneumatosis intestinalis are seen. IMPRESSION: 1. FINDINGS MAY RELATE TO PARTIAL SMALL BOWEL OBSTRUCTION OR EARLY COMPLETE SMALL BOWEL OBSTRUCTION W ITH DILATED PROXIMAL LOOPS OF SMALL BOWEL AND DECOMPRESSED DISTAL LOOPS OF SMALL BOWEL. THESE ARE SEE N ADJACENT TO ONE ANOTHER IN THE MID ABDOMEN JUST SUPERIOR TO THE UMBILICUS HOWEVER THE EXACT TRANSIT ION POINT IS NOT IDENTIFIABLE. 2. EXTENSIVE ATHEROSCLEROSIS OF THE ABDOMINAL AORTA AND ITS BRANCHES. 3. BENIGN 2.2 CM LEFT ADRENAL GLAND LIPID RICH ADENOMA. 4. EXTENSIVE MULTILEVEL DEGENERATIVE DISC DISEASE AN POSTSURGICAL CHANGES OF THE LUMBOSACRAL SPINE.
[2019-05-01] MEDS: SODIUM CHLORIDE 0.9% 1,000 ML IV SCH ×2 (07:34→18:23)
[2019-05-01] MEDS ORDERED: HYDROmorphone 1 MG/ML 1 ML SYRINGE IVP STA (07:43)
[2019-05-01] MEDS ORDERED: NALOXONE 0.4 MG/ML 1 ML VIAL IV PRN (07:45)
[2019-05-01] MEDS ORDERED: ONDANSETRON 4 MG/2 ML VIAL IVP PRN (07:45)
[2019-05-01] MEDS ORDERED: HYDROmorphone 0.5 MG/0.5 ML SYRINGE IVP PRN (07:45)
[2019-05-01] MEDS ORDERED: HYDROmorphone 1 MG/ML 1 ML SYRINGE IVP PRN (07:45)
[2019-05-01 08:10] LABS: Appearance,Urine Clear (Clear); Bilirubin,Urine Negative (Negative); Blood,Urine Negative (Negative); Color,Urine Yellow; Glucose,Urine (UA) Negative (Negative); Ketones,Urine Negative (Negative); Leukocyte Esterase,Urine Negative (Negative); Nitrite,Urine Negative (Negative); PH, Urine 5.5 (5.0-8.0); Protein,Urine Trace (Negative); Specific Gravity,Urine 1.023 (1.001-1.035); Urobilinogen,Urine <2.0 mg/dL (<2.0)
[2019-05-01] MEDS: PANTOPRAZOLE 40 MG/10 ML VIAL IV SCH (08:49)
[2019-05-01 09:02] LABS: INR 2.6 (<1.2); Partial Thromboplastin Time 39.4 sec (22.0-30.0); Prothrombin Time 25.1 sec (9.0-12.0)
[2019-05-01] MEDS ORDERED: ACETAMINOPHEN IV (For NPO) 1,000 MG in EMPTY BAG 1 BAG IVPB PRN (11:48)
--- NOTE | 2019-05-01 13:38 | P.HPIM ---
History of Present Illness 86-year-old the male came in with comments of abdominal pain in the hypogastric LTAC, located within [facility] area and sharp nonradiating. Patient is found to have small bowel obstruction patient is comparing of 10 x 10 pain and was having nausea denied any vomiting patient had a history of bowel perforation with colostomy and reversal of colostomy in the recent past. Patient is on Lasix apparently had a heart failure patient had a normal ejection fraction. Patient denied any fever chills patient denied any dysuria. Review of Systems REVIEW OF SYSTEMS: CONSTITUTIONAL: No fever, no malaise, no fatigue. HEENT: No recent visual problems or hearing problems. Denied any sore throat. CARDIOVASCULAR: No chest pain, orthopnea, PND, no palpitations, no syncope. PULMONARY: No shortness of breath, no cough, no hemoptysis. GASTROINTESTINAL: As mentioned in HPI NEUROLOGICAL: No headaches, no weakness, no numbness. HEMATOLOGICAL: Denies any bleeding or petechiae. GENITOURINARY: Denies any burning micturition, frequency, or urgency. MUSCULOSKELETAL/RHEUMATOLOGICAL: Denies any joint pain, swelling, or any muscle pain. ENDOCRINE: Denies any polyuria or polydipsia. The rest of the 14-point review of systems is negative. 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 History of Any Multi-Drug Resistant Organisms: None Reported Past Surgical History: Back Surgery, Bowel Resection, Cardiac Ablation, Heart Catheterization, Orthopedic Surgery, Pacemaker Additional Past Surgical History / Comment(s): back surgery x2 (has cage), bowel surgery for perforation with colostomy/colostomy later reversed, nasal surgery for polyps, otoniel cataracts, arthroscopy rt knee Past Anesthesia/Blood Transfusion Reactions: No Reported Reaction Type of Cardiac Device: Permanent Pacemaker Device Placement Date:: 2013 Past Psychological History: Anxiety Smoking Status: Former smoker Past Alcohol Use History: None Reported Past Drug Use History: None Reported - Past Family History Mother Family Medical History: Cancer Additional Family Medical History / Comment(s): brain Sister(s) Family Medical History: Cancer Additional Family Medical History / Comment(s): breast Medications and Allergies Home Medications Medication Instructions Recorded Confirmed Type Atorvastatin [Lipitor] 80 mg PO HS 07/09/14 05/01/19 History Venlafaxine HCl [Effexor] 75 mg PO BID 07/09/14 05/01/19 History Furosemide [Lasix] 40 mg PO DAILY 05/17/15 05/01/19 History Ferrous Sulfate [Iron (65 MG 325 mg PO DAILY 08/06/15 05/01/19 History Elemental)] INSULIN ASPART (NovoLOG) [NovoLOG See Protocol SQ AC-TID 08/06/15 05/01/19 H istory (formulary)] Insulin Glargine [Lantus] 50 unit SQ HS 08/06/15 05/01/19 History Lisinopril [Zestril] 20 mg PO DAILY 08/06/15 05/01/19 History amLODIPine [Norvasc] 5 mg PO BID 08/06/15 05/01/19 History Albuterol Nebulized [Ventolin 2.5 mg INHALATION RT-QID 01/27/16 05/01/19 History Nebulized] Budesonide-Formot 160-4.5 Mcg 2 puff INHALATION RT-BID 01/27/16 05/01/19 History [Symbicort 160-4.5 Mcg Inhaler] Tamsulosin [Flomax] 0.4 mg PO DAILY 01/27/16 05/01/19 History Bicalutamide [Casodex] 50 mg PO DAILY 11/15/17 05/01/19 History Calcium/Vit D3 600mg/800iu 1 tab PO BID 11/15/17 05/01/19 History Gabapentin [Neurontin] 300 mg PO BID 11/15/17 05/01/19 History Warfarin [Coumadin] 5 mg PO SUMOWEFRSA 02/14/19 05/01/19 History Warfarin [Coumadin] 7.5 mg PO TH 05/01/19 05/01/19 History Allergies Allergy/AdvReac Type Severity Reaction Status Date / Time adhesive Allergy blisters, Verified 05/01/19 08:05 skin peels ibuprofen [From Motrin] AdvReac Abdominal Verified 05/01/19 08:05 Pain Physical Exam Vitals: Vital Signs Temp Pulse Resp BP Pulse Ox 05/01/19 12:00 60 18 155/80 100 05/01/19 11:00 62 18 151/82 100 05/01/19 10:00 67 18 150/80 100 05/01/19 09:00 65 18 159/82 100 05/01/19 08:00 66 18 139/66 100 05/01/19 06:47 63 18 141/67 100 05/01/19 05:21 97.1 F L 65 18 162/78 100 Intake and Output 04/30/19 05/01/19 05/01/19 22:59 06:59 14:59 Other: Weight 113.398 kg PHYSICAL EXAMINATION: GENERAL: The patient is alert and oriented x3, not in any acute distress. Well developed, well nourished. HEENT: Pupils are round and equally reacting to light. EOMI. No scleral icterus. No conjunctival pallor. Normocephalic, atraumatic. No pharyngeal erythema. No thyromegaly. CARDIOVASCULAR: S1 and S2 present. No murmurs, rubs, or gallops. PULMONARY: Chest is clear to auscultation, no wheezing or crackles. ABDOMEN: Distended andtendernessbowelsoundsarepresent MUSCULOSKELETAL: No joint swelling or deformity. EXTREMITIES: No cyanosis, clubbing, or pedal edema. NEUROLOGICAL: Gross neurological examination did not reveal any focal deficits. SKIN: No rashes. Results CBC & Chem 7: 05/01/19 05:27 05/01/19 05:27 Labs: Abnormal Lab Results - Last 24 Hours (Table) 05/01/19 05/01/19 05/01/19 Range/Units 05:27 05:27 07:39 WBC 11.6 H (3.8-10.6) k/uL RBC 4.26 L (4.30-5.90) m/uL Hgb 12.6 L (13.0-17.5) gm/dL Neutrophils # 10.1 H (1.3-7.7) k/uL Lymphocytes # 0.7 L (1.0-4.8) k/uL PT (9.0-12.0) sec INR (<1.2) APTT (22.0-30.0) sec BUN 28 H (9-20) mg/dL Creatinine 1.58 H (0.66-1.25) mg/dL Glucose 238 H (74-99) mg/dL Urine Protein Trace H (Negative) 05/01/19 Range/Units 08:27 WBC (3.8-10.6) k/uL RBC (4.30-5.90) m/uL Hgb (13.0-17.5) gm/dL Neutrophils # (1.3-7.7) k/uL Lymphocytes # (1.0-4.8) k/uL PT 25.1 H (9.0-12.0) sec INR 2.6 H (<1.2) APTT 39.4 H (22.0-30.0) sec BUN (9-20) mg/dL Creatinine (0.66-1.25) mg/dL Glucose (74-99) mg/dL Urine Protein (Negative) Assessment and Plan Plan: -Small bowel obstruction appears to be partial small bowel obstruction may be related to adhesions and the general surgery was consulted and teaching will be placed patient will be started on IV fluids hold off on Lasix. Patient had a recent bowel resection -Possibly acute renal failure expected to improve with IV fluids that is a possibility of chronic kidney disease patient the present creatinine appears to be better than her his baseline. -Atrial fibrillation presently rate controlled on anti-correlation with Coumadin which will be resumed whenever he can tolerate oral medications -COPD without any acute exacerbation -Type 2 diabetes mellitus -Hyperlipidemia -Sleep apnea obesity -DVT prophylaxis presently not necessary as patient INR is high and above 2
[2019-05-01] MEDS: ALBUTEROL NEBULIZED 2.5 MG/3 ML INHALATION SCH ×3 (14:10→19:13)
[2019-05-01 17:17] LABS: Glucose,Whole Blood 227 mg/dL (75-99)
[2019-05-01] MEDS: SYMBICORT 160-4.5 MCG INHALER INHALATION SCH (19:15)
[2019-05-01 20:07] LABS: Glucose,Whole Blood 230 mg/dL (75-99)
[2019-05-01] MEDS ORDERED: INSULIN DETEMIR (LEVEMIR) 100 UNIT/ML SYR SQ SCH (21:00)
[2019-05-01] MEDS ORDERED: ATORVASTATIN 80 MG TAB PO SCH (21:00)
[2019-05-01] MEDS: GABAPENTIN 300 MG CAP PO SCH (22:09)
[2019-05-01] MEDS: amLODIPine 5 MG TAB PO SCH (22:09)
[2019-05-01] MEDS: VENLAFAXINE HCL 75 MG TAB PO SCH (22:10)
[2019-05-02 01:42] LABS: Glucose,Whole Blood 189 mg/dL (75-99)
[2019-05-02 07:02] LABS: Glucose,Whole Blood 121 mg/dL (75-99)
[2019-05-02] MEDS: ALBUTEROL NEBULIZED 2.5 MG/3 ML INHALATION SCH ×3 (07:04→15:36)
[2019-05-02] MEDS: SYMBICORT 160-4.5 MCG INHALER INHALATION SCH (07:04)
[2019-05-02 07:24] LABS: HCT 37.1 % (39.0-53.0); MCH 30.2 pg (25.0-35.0); MCHC 32.2 g/dL (31.0-37.0); MCV 93.8 fL (80.0-100.0); Mean Platelet Volume 9.3; Platelet Count 186 k/uL (150-450); RBC 3.96 m/uL (4.30-5.90); RDW 13.2 % (11.5-15.5); WBC 9.9 k/uL (3.8-10.6)
[2019-05-02 07:35] LABS: INR 2.9 (<1.2); Prothrombin Time 28.4 sec (9.0-12.0)
[2019-05-02 07:45] LABS: Calcium 9.1 mg/dL (8.4-10.2); Potassium 4.2 mmol/L (3.5-5.1)
[2019-05-02] MEDS: VENLAFAXINE HCL 75 MG TAB PO SCH (08:01)
[2019-05-02] MEDS: GABAPENTIN 300 MG CAP PO SCH (08:01)
[2019-05-02] MEDS: PANTOPRAZOLE 40 MG/10 ML VIAL IV SCH (08:02)
[2019-05-02] MEDS: amLODIPine 5 MG TAB PO SCH (08:02)
[2019-05-02] MEDS: SODIUM CHLORIDE 0.9% 1,000 ML IV SCH (08:02)
[2019-05-02] MEDS ORDERED: BICALUTAMIDE 50 MG TAB PO SCH (09:00)
[2019-05-02] MEDS ORDERED: TAMSULOSIN 0.4 MG CAP.ER.24H PO SCH (09:00)
[2019-05-02 11:41] LABS: Glucose,Whole Blood 137 mg/dL (75-99)
[2019-05-02 12:17] VITALS: BP 151/70; RESP 16; TEMP 97.4
--- NOTE | 2019-05-02 13:44 | P.GSCN ---
History of Present Illness Consult date: 05/01/19 Reason for Consult: bowel obstruction Requesting physician: Geraldo Saini History of present illness: CHIEF COMPLAINT: Abdominal pain HISTORY OF PRESENT ILLNESS: Patient presented to the ER with a chief complaint of abdominal pain. CT was completed revealing SBO. General surgery was consulted for further evaluation. PAST MEDICAL HISTORY: See list. PAST SURGICAL HISTORY: See list. SOCIAL HISTORY: No illicit drug use. REVIEW OF SYSTEMS: CONSTITUTIONAL: Denies fever or chills. HEENT: Denies blurred vision, vision changes, or eye pain. Denies hemoptysis CARDIOVASCULAR: Denies chest pain or pressure. RESPIRATORY: No shortness of breath. GASTROINTESTINAL: Refer to HPI for pertinent findings HEMATOLOGIC: Denies bleeding disorders. GENITOURINARY: Denies any blood in urine. SKIN: Denies pruitis. Denies rash. PHYSICAL EXAM: VITAL SIGNS: Reviewed. GENERAL: Well-developed in no acute distress. HEENT: No sclera icterus. Extraocular movements grossly intact. Moist buccal mucosa. Head is atraumatic, normocephalic. ABDOMEN: Distended. Diffuse tenderness. NEUROLOGIC: Alert and oriented. Cranial nerves II through XII grossly intact. LABORATORY DATA: WBC 11.6. Hemoglobin 12.6. Platelet count 207. INR 2.6. Potassium 4.4. Creatinine 1.58. Lactic acid 1.8. IMAGING: CT abdomen and pelvis: Findings may relate to partial small bowel obstruction or early complete small bowel obstruction with dilated proximal loops of small bowel and decompressed distal loops of small bowel. These are seen adjacent to one another in the mid abdomen just superior to the umbilicus. However exact transition point is not identifiable. Small bowel measuring up to 5cm. ASSESSMENT: 1. Small bowel obstruction 2. History of colon perforation with colostomy and subsequent reversal PLAN: 1. NPO. Continue IV fluids 2. Hold Coumadin. Monitor INR 3. NG to LIS Nurse practitioner note has been reviewed by physician. Signing provider agrees with the documented findings, assessment, and plan of care. Past Medical History Past Medical History: Atrial Fibrillation, Cancer, COPD, Diabetes Mellitus, Hyperlipidemia, Pneumonia, Prostate Disorder, Skin Disorder, Sleep Apnea/CPAP/BI PAP Additional Past Medical History / Comment(s): bowel perforation 2006, prostate CA, skin cancer spots removed from nose and scalp, hx migraines yr ago, atrial fibrillation status post pacemaker implantation, osteoarthritis, past problem with kidney function , pt state he had a pne vaccine but not sure of date, physician underwriter unable to verify date at time of this admit. History of Any Multi-Drug Resistant Organisms: None Reported Past Surgical History: Back Surgery, Bowel Resection, Cardiac Ablation, Heart Catheterization, Orthopedic Surgery, Pacemaker Additional Past Surgical History / Comment(s): back surgery x2 (has cage), bowel surgery for perforation with colostomy/colostomy later reversed, nasal surgery for polyps, otoniel cataracts, arthroscopy rt knee Past Anesthesia/Blood Transfusion Reactions: No Reported Reaction Type of Cardiac Device: Permanent Pacemaker Device Placement Date:: 2013 Past Psychological History: Anxiety Smoking Status: Former smoker Past Alcohol Use History: None Reported Past Drug Use History: None Reported - Past Family History Mother Family Medical History: Cancer Additional Family Medical History / Comment(s): brain Sister(s) Family Medical History: Cancer Additional Family Medical History / Comment(s): breast Father Family Medical History: Diabetes Mellitus, Renal Disease Medications and Allergies Home Medications Medication Instructions Recorded Confirmed Type Atorvastatin [Lipitor] 80 mg PO HS 07/09/14 05/01/19 History Venlafaxine HCl [Effexor] 75 mg PO BID 07/09/14 05/01/19 History Furosemide [Lasix] 40 mg PO DAILY 05/17/15 05/01/19 History Ferrous Sulfate [Iron (65 MG 325 mg PO DAILY 08/06/15 05/01/19 History Elemental)] INSULIN ASPART (NovoLOG) [NovoLOG See Protocol SQ AC-TID 08/06/15 05/01/19 History (formulary)] Insulin Glargine [Lantus] 50 unit SQ HS 08/06/15 05/01/19 History Lisinopril [Zestril] 20 mg PO DAILY 08/06/15 05/01/19 History amLODIPine [Norvasc] 5 mg PO BID 08/06/15 05/01/19 History Albuterol Nebulized [Ventolin 2.5 mg INHALATION RT-QID 01/27/16 05/01/19 History Nebulized] Budesonide-Formot 160-4.5 Mcg 2 puff INHALATION RT-BID 01/27/16 05/01/19 History [Symbicort 160-4.5 Mcg Inhaler] Tamsulosin [Flomax] 0.4 mg PO DAILY 01/27/16 05/01/19 History Bicalutamide [Casodex] 50 mg PO DAILY 11/15/17 05/01/19 History Calcium/Vit D3 600mg/800iu 1 tab PO BID 11/15/17 05/01/19 History Gabapentin [Neurontin] 300 mg PO BID 11/15/17 05/01/19 History Warfarin [Coumadin] 5 mg PO SUMOWEFRSA 02/14/19 05/01/19 History Warfarin [Coumadin] 7.5 mg PO TH 05/01/19 05/01/19 History Allergies Allergy/AdvReac Type Severity Reaction Status Date / Time adhesive Allergy blisters, Verified 05/01/19 08:05 skin peels ibuprofen [From Motrin] AdvReac Abdominal Verified 05/01/19 08:05 Pain Surgical - Exam Vital Signs Temp Pulse Resp BP Pulse Ox 97.1 F L 65 18 162/78 100 05/01/19 05:21 05/01/19 05:21 05/01/19 05:21 05/01/19 05:21 05/01/19 05:21 Results - Labs 05/02/19 07:00 05/02/19 07:00 Abnormal Lab Results - Last 24 Hours (Table) 05/01/19 05/01/19 05/01/19 Range/Units 05:27 05:27 07:39 WBC 11.6 H (3.8-10.6) k/uL RBC 4.26 L (4.30-5.90) m/uL Hgb 12.6 L (13.0-17.5) gm/dL Neutrophils # 10.1 H (1.3-7.7) k/uL Lymphocytes # 0.7 L (1.0-4.8) k/uL PT (9.0-12.0) sec INR (<1.2) APTT (22.0-30.0) sec BUN 28 H (9-20) mg/dL Creatinine 1.58 H (0.66-1.25) mg/dL Glucose 238 H (74-99) mg/dL Urine Protein Trace H (Negative) 05/01/19 Range/Units 08:27 WBC (3.8-10.6) k/uL RBC (4.30-5.90) m/uL Hgb (13.0-17.5) gm/dL Neutrophils # (1.3-7.7) k/uL Lymphocytes # (1.0-4.8) k/uL PT 25.1 H (9.0-12.0) sec INR 2.6 H (<1.2) APTT 39.4 H (22.0-30.0) sec BUN (9-20) mg/dL Creatinine (0.66-1.25) mg/dL Glucose (74-99) mg/dL Urine Protein (Negative) Diabetes panel 05/01/19 Range/Units 05:27 Sodium 137 (137-145) mmol/L Potassium 4.4 (3.5-5.1) mmol/L Chloride 102 (98-107) mmol/L Carbon Dioxide 27 (22-30) mmol/L BUN 28 H (9-20) mg/dL Creatinine 1.58 H (0.66-1.25) mg/dL Glucose 238 H (74-99) mg/dL Calcium 9.6 (8.4-10.2) mg/dL AST 29 (17-59) U/L ALT 19 (4-49) U/L Alkaline Phosphatase 126 (38-126) U/L Total Protein 6.9 (6.3-8.2) g/dL Albumin 4.3 (3.5-5.0) g/dL Calcium panel 05/01/19 Range/Units 05:27 Calcium 9.6 (8.4-10.2) mg/dL Albumin 4.3 (3.5-5.0) g/dL Pituitary panel 05/01/19 Range/Units 05:27 Sodium 137 (137-145) mmol/L Potassium 4.4 (3.5-5.1) mmol/L Chloride 102 (98-107) mmol/L Carbon Dioxide 27 (22-30) mmol/L BUN 28 H (9-20) mg/dL Creatinine 1.58 H (0.66-1.25) mg/dL Glucose 238 H (74-99) mg/dL Calcium 9.6 (8.4-10.2) mg/dL Adrenal panel 05/01/19 Range/Units 05:27 Sodium 137 (137-145) mmol/L Potassium 4.4 (3.5-5.1) mmol/L Chloride 102 (98-107) mmol/L Carbon Dioxide 27 (22-30) mmol/L BUN 28 H (9-20) mg/dL Creatinine 1.58 H (0.66-1.25) mg/dL Glucose 238 H (74-99) mg/dL Calcium 9.6 (8.4-10.2) mg/dL Total Bilirubin 0.7 (0.2-1.3) mg/dL AST 29 (17-59) U/L ALT 19 (4-49) U/L Alkaline Phosphatase 126 (38-126) U/L Total Protein 6.9 (6.3-8.2) g/dL Albumin 4.3 (3.5-5.0) g/dL
--- NOTE | 2019-05-02 13:46 | P.PN ---
Subjective Progress Note Date: 05/02/19 CHIEF COMPLAINT: Abdominal pain HISTORY OF PRESENT ILLNESS: patient seen and examined at the bedside. Patient reports having a large formed stool today. Denies abdominal pain. Denies nausea. NG with small amount of bilious output. PHYSICAL EXAM: VITAL SIGNS: Reviewed. GENERAL: Well-developed in no acute distress. HEENT: No sclera icterus. Extraocular movements grossly intact. Moist buccal mucosa. Head is atraumatic, normocephalic. ABDOMEN: Obese. Nontender. Positive bowel sounds. NG to LIS NEUROLOGIC: Alert and oriented. Cranial nerves II through XII grossly intact. ASSESSMENT: 1. Small bowel obstruction 2. History of colon perforation with colostomy and subsequent reversal PLAN: -Discontinue NG tube -Begin clear liquid diet. Advance as tolerated -No surgical intervention recommended Nurse practitioner note has been reviewed by physician. Signing provider agrees with the documented findings, assessment, and plan of care. Objective - Vital Signs Vital signs: Vital Signs Temp 97.4 F L 05/02/19 12:16 Pulse 60 05/02/19 12:16 Resp 16 05/02/19 12:16 BP 151/70 05/02/19 12:16 Pulse Ox 97 05/02/19 12:16 Intake & Output 05/01/19 05/02/19 05/02/19 18:59 06:59 18:59 Intake Total 825 Output Total 200 200 Balance -200 625 Weight 113.398 kg Intake: Intake, IV Titration 825 Amount Sodium Chloride 0.9% 1, 825 000 ml @ 75 mls/hr IV . [id number] JERRY Rx#:[id number] Output: Gastric Drainage 200 Urine 200 Other: Voiding Method Urinal Urinal # Voids 250 - Labs CBC & Chem 7: 05/02/19 07:00 05/02/19 07:00 Labs: Abnormal Lab Results - Last 24 Hours (Table) 05/01/19 05/01/19 05/02/19 Range/Units 17:07 20:06 01:39 RBC (4.30-5.90) m/uL Hgb (13.0-17.5) gm/dL Hct (39.0-53.0) % PT (9.0-12.0) sec INR (<1.2) Chloride (98-107) mmol/L Carbon Dioxide (22-30) mmol/L BUN (9-20) mg/dL Glucose (74-99) mg/dL POC Glucose (mg/dL) 227 H 230 H 189 H (75-99) mg/dL 05/02/19 05/02/19 05/02/19 Range/Units 07:00 07:00 07:00 RBC 3.96 L (4.30-5.90) m/uL Hgb 12.0 L (13.0-17.5) gm/dL Hct 37.1 L (39.0-53.0) % PT 28.4 H (9.0-12.0) sec INR 2.9 H (<1.2) Chloride 111 H (98-107) mmol/L Carbon Dioxide 21 L (22-30) mmol/L BUN 27 H (9-20) mg/dL Glucose 123 H (74-99) mg/dL POC Glucose (mg/dL) (75-99) mg/dL 05/02/19 05/02/19 Range/Units 07:00 11:39 RBC (4.30-5.90) m/uL Hgb (13.0-17.5) gm/dL Hct (39.0-53.0) % PT (9.0-12.0) sec INR (<1.2) Chloride (98-107) mmol/L Carbon Dioxide (22-30) mmol/L BUN (9-20) mg/dL Glucose (74-99) mg/dL POC Glucose (mg/dL) 121 H 137 H (75-99) mg/dL
[2019-05-02 15:46] VITALS: PULSE 68
--- NOTE | 2019-05-02 16:43 | P.DS ---
Providers Date of admission: 05/01/19 07:45 Expected date of discharge: 05/02/19 Attending physician: Carmelina Smith MD Consults: 05/01/19 07:46 Consult Physician Urgent Consulting Provider: Franky Taylor Consult Reason/Comments: bowel obstruction Do you want consulting provider notified?: Yes Primary care physician: [facility] Course: Final diagnosis -Small bowel obstruction appears to be partial small bowel obstruction -Possibly acute renal failure -Atrial fibrillation -COPD without any acute exacerbation -Type 2 diabetes mellitus -Hyperlipidemia -Sleep apnea -obesity -DVT prophylaxis Discharge disposition Patient is being discharged in a stable condition with guarded prognosis to home and will follow-up with primary care provider this week. Patient was given a stool softener upon discharge. Total time taken is 35 minutes. History of present illness 84-year-old the male came in with comments of abdominal pain in the hypogastric [facility] medical area and sharp nonradiating. Patient is found to have small bowel obstruction patient is planing of 10 x 10 pain and was having nausea denied any vomiting patient had a history of bowel perforation with colostomy and reversal of colostomy in the recent past. Patient is on Lasix apparently had a heart failure patient had a normal ejection fraction. Patient denied any fever chills patient denied any dysuria. 05/02/2019 Patient is sitting up in the chair in no acute distress with no acute overnight issues. Patient had an NG tube in the right nare with minimal output as patient has been nothing by mouth. Patient had a large bowel movement last night and is feeling much better. Patient denies any abdominal tenderness or discomfort. Patient was evaluated by surgery and NG was removed and patient was started on clear liquids and tolerating well. Would like to go home today. Discussed with the patient at length about continuing a clear liquid diet and advancing slowly as tolerated to full liquids. Patient agrees with this treatment plan and verbalizes understanding. Currently patient denies any chest pain, shortness of breath, or palpitations. Patient is afebrile. Patient denies any nausea or vomiting and is tolerating diet. On exam vital signs are stable. Temp is 97.4F, pulse is 60, respirations are 16, blood pressure 151/70, oxygen saturation is 97% on room air. Cardio S1, S2 are present. Respiratory system shows clear to auscultation. Abdomen is soft, obese, nontender. Nervous system shows no focal deficits. Please refer to medication reconciliation sheet for a list of medications. Patient Condition at Discharge: Stable Plan - Discharge Summary Discharge Rx Participant: No New Discharge Prescriptions: New Insulin Detemir (Levemir) [Levemir] 25 unit SQ HS syr Sennosides [Senokot] 8.6 mg PO DAILY PRN 30 Days #30 tablet PRN Reason: Constipation Continue Venlafaxine HCl [Effexor] 75 mg PO BID Atorvastatin [Lipitor] 80 mg PO HS Furosemide [Lasix] 40 mg PO DAILY amLODIPine [Norvasc] 5 mg PO BID Ferrous Sulfate [Iron (65 MG Elemental)] 325 mg PO DAILY INSULIN ASPART (NovoLOG) [NovoLOG (formulary)] See Protocol SQ AC-TID Tamsulosin [Flomax] 0.4 mg PO DAILY Budesonide-Formot 160-4.5 Mcg [Symbicort 160-4.5 Mcg Inhaler] 2 puff INHALATION RT-BID Albuterol Nebulized [Ventolin Nebulized] 2.5 mg INHALATION RT-QID Calcium/Vit D3 600mg/800iu 1 tab PO BID Bicalutamide [Casodex] 50 mg PO DAILY Gabapentin [Neurontin] 300 mg PO BID Warfarin [Coumadin] 5 mg PO SUMOWEFRSA Warfarin [Coumadin] 7.5 mg PO TH Discontinued Insulin Glargine [Lantus] 50 unit SQ HS Lisinopril [Zestril] 20 mg PO DAILY Discharge Medication List Atorvastatin [Lipitor] 80 mg PO HS 07/09/14 [History] Venlafaxine HCl [Effexor] 75 mg PO BID 07/09/14 [History] Furosemide [Lasix] 40 mg PO DAILY 05/17/15 [History] Ferrous Sulfate [Iron (65 MG Elemental)] 325 mg PO DAILY 08/06/15 [History] INSULIN ASPART (NovoLOG) [NovoLOG (formulary)] See Protocol SQ AC-TID 08/06/15 [History] amLODIPine [Norvasc] 5 mg PO BID 08/06/15 [History] Albuterol Nebulized [Ventolin Nebulized] 2.5 mg INHALATION RT-QID 01/27/16 [History] Budesonide-Formot 160-4.5 Mcg [Symbicort 160-4.5 Mcg Inhaler] 2 puff INHALATION RT-BID 01/27/16 [History] Tamsulosin [Flomax] 0.4 mg PO DAILY 01/27/16 [History] Bicalutamide [Casodex] 50 mg PO DAILY 11/15/17 [History] Calcium/Vit D3 600mg/800iu 1 tab PO BID 11/15/17 [History] Gabapentin [Neurontin] 300 mg PO BID 11/15/17 [History] Warfarin [Coumadin] 5 mg PO SUMOWEFRSA 02/14/19 [History] Warfarin [Coumadin] 7.5 mg PO TH 05/01/19 [History] Insulin Detemir (Levemir) [Levemir] 25 unit SQ HS syr 05/02/19 [Rx] Sennosides [Senokot] 8.6 mg PO DAILY PRN 30 Days #30 tablet 05/02/19 [Rx] Follow up Appointment(s)/Referral(s): [facility] [Primary Care Provider] - 05/10/19 3:00 pm Ambulatory/Diagnostic Orders: Basic Metabolic Panel [LAB.AMB] Time Frame: 2 Days, Location: None Selected Patient Instructions/Handouts: Laxative, Stimulant Combination (By mouth), Bowel Obstruction (DC) Activity/Diet/Wound Care/Special Instructions: Activity Limited until follow-up Follow-up with primary care provider upon discharge Repeat labs in 2-3 days Continue monitoring blood sugar before meals at bedtime and keep a diary for primary care follow-up Continue with long-acting insulin and notice the dose change at 25 units at bedtime Monitor blood pressure and continue to hold lisinopril until primary care follow-up Continue clear liquids and advance diet slowly as tolerated Continue with stool softeners daily and hold if loose stools Discharge Disposition: HOME SELF-CARE
[2019-05-03] MEDS ORDERED: PANTOPRAZOLE 40 MG TABLET PO SCH (09:00)
== END 2019-05-02 16:25 | disposition home or self-care (01) | DRG 389 ==
LOC: EC 05:18 → 5NMEDONC 07:45
PROVIDERS: ADMIT Internal Medicine; ATTEND Internal Medicine
DX: K56.600 Partial intestinal obstruction, unspecified as to cause (principal); N17.9 Acute kidney failure, unspecified; E11.9 Type 2 diabetes mellitus without complications; E66.9 Obesity, unspecified; E78.5 Hyperlipidemia, unspecified; F41.9 Anxiety disorder, unspecified; G47.30 Sleep apnea, unspecified; I48.91 Unspecified atrial fibrillation; J44.9 Chronic obstructive pulmonary disease, unspecified; G43.909 Migraine, unspecified, not intractable, without status migrainosus; M19.90 Unspecified osteoarthritis, unspecified site; N42.9 Disorder of prostate, unspecified; Z79.01 Long term (current) use of anticoagulants; Z79.4 Long term (current) use of insulin; Z79.51 Long term (current) use of inhaled steroids; Z79.899 Other long term (current) drug therapy; Z88.6 Allergy status to analgesic agent; Z85.46 Personal history of malignant neoplasm of prostate; Z85.828 Personal history of other malignant neoplasm of skin; Z87.891 Personal history of nicotine dependence; Z95.0 Presence of cardiac pacemaker; Z90.49 Acquired absence of other specified parts of digestive tract; Z86.010 Personal history of colon polyps; Z98.42 Cataract extraction status, left eye; Z98.41 Cataract extraction status, right eye; Z96.1 Presence of intraocular lens; Z68.36 Body mass index [BMI] 36.0-36.9, adult; Z83.3 Family history of diabetes mellitus; Z84.1 Family history of disorders of kidney and ureter; Z80.3 Family history of malignant neoplasm of breast; Z80.8 Family history of malignant neoplasm of other organs or systems
CPT/HCPCS: 36415; 74019; 74176; 80048; 80053; 81003; 83605; 83690; 85025; 85027; 85610; 85730; 86850; 86900; 86901; 94640; 96361; 96365; 96375; 99285

== ENCOUNTER 2021-08-12 14:15 | Inpatient (IN) | payer MEDICARE, BC ==
--- NOTE | 2021-08-12 14:52 | XR ---
EXAMINATION TYPE: XR chest 2V DATE OF EXAM: 08/12/2021 COMPARISON: Chest x-ray December 15, 2017 HISTORY: Cough and congestion. TECHNIQUE: Frontal and lateral views of the chest are obtained. FINDINGS: There is cardiomegaly with single lead pacemaker redemonstrated. New increased interstitia l markings bilaterally. No pleural effusion or pneumothorax seen. Multilevel spurring in the spine . IMPRESSION: Cardiomegaly with new mild interstitial edema, correlate for CHF exacerbation.
[2021-08-12] MEDS ORDERED: ACETAMINOPHEN TAB 500 MG TAB PO STA (19:47)
[2021-08-12 21:01] LABS: Glucose,Whole Blood 220 mg/dL (75-99)
[2021-08-12 21:52] LABS: Basophils # (A) 0.2 k/uL (0-0.2); Basophils % (A) 2 %; Eosinophils % (A) 0 %; Lymphocytes # (A) 0.4 k/uL (1.0-4.8); Lymphocytes % (A) 4 %; MCH 29.8 pg (25.0-35.0); MCHC 33.4 g/dL (31.0-37.0); MCV 89.2 fL (80.0-100.0); Mean Platelet Volume 9.6; Monocytes # (A) 0.8 k/uL (0-1.0); Monocytes % (A) 8 %; Neutrophils # (A) 8.3 k/uL (1.3-7.7); Neutrophils % (A) 84 %; Platelet Count 181 k/uL (150-450); RBC 4.37 m/uL (4.30-5.90); RDW 14.2 % (11.5-15.5); WBC 9.8 k/uL (3.8-10.6)
[2021-08-12 22:02] LABS: Albumin 3.9 g/dL (3.5-5.0); Calcium 8.5 mg/dL (8.4-10.2); Potassium 3.2 mmol/L (3.5-5.1); Total Bilirubin 1.5 mg/dL (0.2-1.3); Total Protein 6.9 g/dL (6.3-8.2)
[2021-08-12] MEDS ORDERED: POTASSIUM CHLORIDE ER 20 MEQ TAB.ER PO STA (22:04)
[2021-08-12 23:16] LABS: INR 1.7 (<1.2); Partial Thromboplastin Time 39.1 sec (22.0-30.0)
--- NOTE | 2021-08-13 00:12 | CT ---
EXAMINATION TYPE: CT abdomen pelvis wo con DATE OF EXAM: 08/12/2021 COMPARISON: 05/01/2019 HISTORY: ams, weakness and cough. hx of bowel peforation and prostate cx CT DLP: 1102.4 mGycm Automated exposure control for dose reduction was used. Images obtained from the diaphragm to the floor the pelvis without contrast. There is some coarse interstitial infiltrate at the lung bases. There is fat-containing posterior penelope phragmatic hernia. Unchanged. No pleural effusion. Heart is slightly enlarged. No pericardial effusio n. Liver is intact. The bile ducts are not dilated. Gallbladder is intact. Spleen appears normal. Sto mach is intact. There is no pancreatic mass. There is 2 cm left adrenal mass with low-attenuation and likely benign. Unchanged. There is no hydronephrosis. Kidneys have fairly normal size. There is no retroperitoneal adenopathy. Ureters are not dilated. There is extensive vascular calcification in the abdomen and pelvis. Bladder distends smoothly. There is no inguinal hernia. No free fluid in the pelvis. There are prostate surg ical clips. There is no mesenteric edema. No ascites or free air. No sign of a bowel obstruction. The lumbar vert ebra show multilevel posterior fusion surgery. There is multilevel lumbar spondylotic changes. No com pression fracture. Degenerative disc space narrowing is seen throughout the lumbar spine. There is mu ltilevel laminectomy. The bony pelvis is intact. Hip joints are intact. Sacroiliac joints are intact. IMPRESSION: No acute abnormality of the abdomen and pelvis. Atherosclerotic vascular disease. Spinal surgery. The re is clearing of the small bowel ileus pattern compared to old exam
[2021-08-13] MEDS: HEPARIN SOD,PORK IN 0.45% NACL 25,000 UNIT in 0.45% NACL 1 250ML.BAG IV SCH (00:39)
[2021-08-13] MEDS ORDERED: NALOXONE 0.4 MG/ML 1 ML VIAL IV PRN (00:56)
[2021-08-13] MEDS ORDERED: ACETAMINOPHEN TAB 325 MG TAB PO PRN (00:56)
[2021-08-13] MEDS ORDERED: cefTRIAXone IN SWFI 1,000 MG/10 ML SYRINGE IVP STA (01:00)
--- NOTE | 2021-08-13 01:00 | ED ---
Fever HPI - General Chief Complaint: Fever Stated Complaint: Shortness of Breath, Cough, Congestion Time Seen by Provider: 08/12/21 21:05 Source: patient Mode of arrival: wheelchair Limitations: no limitations - History of Present Illness Initial Comments: Patient is an 86-year-old male with history of CHF, A. fib, diabetes, hyperlipidemia, kidney disease presenting with chief complaint of fever. His at bedside states that symptoms began 2-3 days ago, patient began developing a wet cough. He also developed congestion. states that today h e was becoming progressively weaker, it was difficult for him to walk short distances in his shortness of breath was becoming more profound. He was not taking any Motrin or Tylenol at home for pain control. He did do one albuterol breathing treatment today for shortness of breath. He denies chest pain, nausea, vomiting, abdominal pain, dysuria, hematuria, urgency, frequency, palpitations, weakness, fall, head injury, loss of consciousness, vision or hearing changes, numbness/tingling/weakness on one side of the body. - Related Data Home Medications Medication Instructions Recorded Confirmed Atorvastatin [Lipitor] 80 mg PO HS 07/09/14 08/12/21 Venlafaxine HCl [Effexor] 75 mg PO BID 07/09/14 08/12/21 Furosemide [Lasix] 40 mg PO BID 05/17/15 08/12/21 Ferrous Sulfate [Iron (65 MG 325 mg PO DAILY 08/06/15 08/12/21 Elemental)] INSULIN ASPART (NovoLOG) [NovoLOG 25 unit SQ AC-TID 08/06/15 08/12/21 (formulary)] amLODIPine [Norvasc] 5 mg PO DAILY 08/06/15 08/12/21 Albuterol Nebulized [Ventolin 2.5 mg INHALATION RT-QID PRN 01/27/16 08/12/21 Nebulized] Tamsulosin [Flomax] 0.4 mg PO DAILY 01/27/16 08/12/21 Bicalutamide [Casodex] 50 mg PO DAILY 11/15/17 08/12/21 Calcium/Vit D3 600mg/800iu 1 tab PO BID 11/15/17 08/12/21 Gabapentin [Neurontin] 300 mg PO TID 11/15/17 08/12/21 Warfarin [Coumadin] 5 mg PO SUTUWETHFRSA@2100 02/14/19 08/12/21 Warfarin [Coumadin] 2.5 mg PO MO@2100 05/01/19 08/12/21 Fluticasone Propion/Salmeterol 1 puff INHALATION RT-BID 08/12/21 08/12/21 [Wixela 100-50 Inhub] Insulin Glargine [Lantus Vial] 55 unit SQ HS 08/12/21 08/12/21 Metoprolol Succinate (ER) [Toprol 50 mg PO DAILY 08/12/21 08/12/21 Xl] Omeprazole 20 mg PO BID 08/12/21 08/12/21 Potassium Chloride ER [K-Dur 20] 20 meq PO DAILY 08/12/21 08/12/21 hydroCHLOROthiazide 25 mg PO DAILY 08/12/21 08/12/21 Allergies Allergy/AdvReac Type Severity Reaction Status Date / Time adhesive Allergy blisters, Verified 08/12/21 22:13 skin peels ibuprofen [From Motrin] AdvReac Abdominal Verified 08/12/21 22:13 Pain Review of Systems ROS Statement: Those systems with pertinent positive or pertinent negative responses have been documented in the HPI. ROS Other: All systems not noted in ROS Statement are negative. 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 History of Any Multi-Drug Resistant Organisms: None Reported Past Surgical History: Back Surgery, Bowel Resection, Cardiac Ablation, Heart Catheterization, Orthopedic Surgery, Pacemaker Additional Past Surgical History / Comment(s): back surgery x2 (has cage), bowel surgery for perforation with colostomy/colostomy later reversed, nasal surgery for polyps, otoniel cataracts, arthroscopy rt knee Past Anesthesia/Blood Transfusion Reactions: No Reported Reaction Type of Cardiac Device: Permanent Pacemaker Device Placement Date:: 2013 Past Psychological History: Anxiety Past Alcohol Use History: None Reported Past Drug Use History: None Reported - Past Family History Mother Family Medical History: Cancer Additional Family Medical History / Comment(s): brain Sister(s) Family Medical History: Cancer Additional Family Medical History / Comment(s): breast Father Family Medical History: Diabetes Mellitus, Renal Disease General Exam Limitations: no limitations General appearance: alert, in distress Head exam: Present: atraumatic, normocephalic, normal inspection Eye exam: Present: EOMI. Absent: scleral icterus Neck exam: Present: normal inspection Respiratory exam: Present: rales. Absent: normal lung sounds bilaterally, respiratory distress, wheezes, rhonchi, stridor Cardiovascular Exam: Present: regular rate, normal rhythm, normal heart sounds. Absent: systolic murmur, diastolic murmur, rubs, gallop, clicks GI/Abdominal exam: Present: soft, normal bowel sounds. Absent: distended, tenderness, guarding, rebound, rigid Extremities exam: Present: pedal edema (2+ pitting edema) Neurological exam: Present: alert, oriented X3, CN II-XII intact Psychiatric exam: Present: normal affect, normal mood Skin exam: Present: warm, dry, intact, normal color. Absent: rash Course Vital Signs 08/12/21 08/12/21 08/12/21 14:20 19:38 21:18 Temperature 102.5 F H 102.5 F H 99.3 F Pulse Rate 65 60 60 Respiratory 20 18 14 Rate Blood Pressure 150/68 169/68 120/60 O2 Sat by Pulse 95 94 L 96 Oximetry 08/12/21 08/13/21 23:00 00:00 Temperature 98.2 F Pulse Rate 60 60 Respiratory 20 22 Rate Blood Pressure 151/70 O2 Sat by Pulse 96 95 Oximetry Medical Decision Making - Medical Decision Making Patient is an 86-year-old male presenting with chief complaint of fever, shortness of breath, cough, congestion. Symptoms have been going on for the last 2-3 days. Patient's at bedside notes that today his shortness of breath was becoming increasingly worse and his fever was climbing. On exam he is febrile at 102.5 F, auscultation of his lungs reveals diffuse rails and crackles. He has a pacemaker, paced at 60. Patient's chest x-ray is positive for acute CHF exacerbation. His troponin is elevated at 0.100 his EKG shows some changes that may be consistent with an STEMI. I EKG to my attending Dr. Dougherty who also evaluated it, I was instructed to call cardiology with the findings and inquire if heparin is necessary, given the fact that the patient is currently on warfarin and is going through an acute CHF exacerbation with a BNP of 5510. I spoke with the senior applications engineer on-call who advised me to wait for coags and administer heparin if not contraindicated. When coags came back I then reconsulted with the attending physician, I was told to administer low dose heparin without a bolus. I obtained a computed tomography scan of the abdomen and pelvis to rule out intra-abdominal sources of infection. No acute abnormality of the abdomen and pelvis was found on exam. Urine is still pending at this time, patient has no urinary complaints. Fever is likely due to a concurrent pneumonia, patient was given Rocephin 1 g[address] I spoke with Dr. Gordon who agreed to admit the patient. I explained the plan to the family, they conveyed verbal understanding and agreed to the plan. I discussed this case with my attending Dr. Dougherty. - Lab Data Result diagrams: 08/12/21 21:32 08/12/21 21:32 Lab Results 08/12/21 08/12/21 08/12/21 Range/Units 19:41 21:32 21:32 WBC 9.8 (3.8-10.6) k/uL RBC 4.37 (4.30-5.90) m/uL Hgb 13.0 (13.0-17.5) gm/dL Hct 39.0 (39.0-53.0) % MCV 89.2 (80.0-100.0) fL MCH 29.8 (25.0-35.0) pg MCHC 33.4 (31.0-37.0) g/dL RDW 14.2 (11.5-15.5) % Plt Count 181 (150-450) k/uL MPV 9.6 Neutrophils % 84 % Lymphocytes % 4 % Monocytes % 8 % Eosinophils % 0 % Basophils % 2 % Neutrophils # 8.3 H (1.3-7.7) k/uL Lymphocytes # 0.4 L (1.0-4.8) k/uL Monocytes # 0.8 (0-1.0) k/uL Eosinophils # 0.0 (0-0.7) k/uL Basophils # 0.2 (0-0.2) k/uL PT (9.0-12.0) sec INR (<1.2) APTT (22.0-30.0) sec Sodium 134 L (137-145) mmol/L Potassium 3.2 L (3.5-5.1) mmol/L Chloride 95 L (98-107) mmol/L Carbon Dioxide 31 H (22-30) mmol/L Anion Gap 8 mmol/L BUN 32 H (9-20) mg/dL Creatinine 1.78 H (0.66-1.25) mg/dL Est GFR (CKD-EPI)AfAm 40 (>60 ml/min/1.73 sqM) Est GFR (CKD-EPI)NonAf 34 (>60 ml/min/1.73 sqM) Glucose 219 H (74-99) mg/dL POC Glucose (mg/dL) 220 H (75-99) mg/dL POC Glu Knotter ID DeerajPatricia Plasma Lactic Acid Fabian (0.7-2.0) mmol/L Calcium 8.5 (8.4-10.2) mg/dL Total Bilirubin 1.5 H (0.2-1.3) mg/dL AST 29 (17-59) U/L ALT 16 (4-49) U/L Alkaline Phosphatase 112 (38-126) U/L Troponin I (0.000-0.034) ng/mL NT-Pro-B Natriuret Pep pg/mL Total Protein 6.9 (6.3-8.2) g/dL Albumin 3.9 (3.5-5.0) g/dL Coronavirus (PCR) (Not Detectd) Influenza Type A RNA (Not Detectd) Influenza Type B (PCR) (Not Detectd) 08/12/21 08/12/21 08/12/21 Range/Units 21:32 21:32 21:32 WBC (3.8-10.6) k/uL RBC (4.30-5.90) m/uL Hgb (13.0-17.5) gm/dL Hct (39.0-53.0) % MCV (80.0-100.0) fL MCH (25.0-35.0) pg MCHC (31.0-37.0) g/dL RDW (11.5-15.5) % Plt Count (150-450) k/uL MPV Neutrophils % % Lymphocytes % % Monocytes % % Eosinophils % % Basophils % % Neutrophils # (1.3-7.7) k/uL Lymphocytes # (1.0-4.8) k/uL Monocytes # (0-1.0) k/uL Eosinophils # (0-0.7) k/uL Basophils # (0-0.2) k/uL PT (9.0-12.0) sec INR (<1.2) APTT (22.0-30.0) sec Sodium (137-145) mmol/L Potassium (3.5-5.1) mmol/L Chloride (98-107) mmol/L Carbon Dioxide (22-30) mmol/L Anion Gap mmol/L BUN (9-20) mg/dL Creatinine (0.66-1.25) mg/dL Est GFR (CKD-EPI)AfAm (>60 ml/min/1.73 sqM) Est GFR (CKD-EPI)NonAf (>60 ml/min/1.73 sqM) Glucose (74-99) mg/dL POC Glucose (mg/dL) (75-99) mg/dL POC Glu Knotter ID Plasma Lactic Acid Fabian 1.6 (0.7-2.0) mmol/L Calcium (8.4-10.2) mg/dL Total Bilirubin (0.2-1.3) mg/dL AST (17-59) U/L ALT (4-49) U/L Alkaline Phosphatase (38-126) U/L Troponin I 0.100 H* (0.000-0.034) ng/mL NT-Pro-B Natriuret Pep 5510 pg/mL Total Protein (6.3-8.2) g/dL Albumin (3.5-5.0) g/dL Coronavirus (PCR) (Not Detectd) Influenza Type A RNA (Not Detectd) Influenza Type B (PCR) (Not Detectd) 08/12/21 08/12/21 08/12/21 Range/Units 21:32 21:32 22:30 WBC (3.8-10.6) k/uL RBC (4.30-5.90) m/uL Hgb (13.0-17.5) gm/dL Hct (39.0-53.0) % MCV (80.0-100.0) fL MCH (25.0-35.0) pg MCHC (31.0-37.0) g/dL RDW (11.5-15.5) % Plt Count (150-450) k/uL MPV Neutrophils % % Lymphocytes % % Monocytes % % Eosinophils % % Basophils % % Neutrophils # (1.3-7.7) k/uL Lymphocytes # (1.0-4.8) k/uL Monocytes # (0-1.0) k/uL Eosinophils # (0-0.7) k/uL Basophils # (0-0.2) k/uL PT 17.0 H (9.0-12.0) sec INR 1.7 H (<1.2) APTT 39.1 H (22.0-30.0) sec Sodium (137-145) mmol/L Potassium (3.5-5.1) mmol/L Chloride (98-107) mmol/L Carbon Dioxide (22-30) mmol/L Anion Gap mmol/L BUN (9-20) mg/dL Creatinine (0.66-1.25) mg/dL Est GFR (CKD-EPI)AfAm (>60 ml/min/1.73 sqM) Est GFR (CKD-EPI)NonAf (>60 ml/min/1.73 sqM) Glucose (74-99) mg/dL POC Glucose (mg/dL) (75-99) mg/dL POC Glu Knotter ID Plasma Lactic Acid Fabian (0.7-2.0) mmol/L Calcium (8.4-10.2) mg/dL Total Bilirubin (0.2-1.3) mg/dL AST (17-59) U/L ALT (4-49) U/L Alkaline Phosphatase (38-126) U/L Troponin I (0.000-0.034) ng/mL NT-Pro-B Natriuret Pep pg/mL Total Protein (6.3-8.2) g/dL Albumin (3.5-5.0) g/dL Coronavirus (PCR) Not Detected (Not Detectd) Influenza Type A RNA Not Detected (Not Detectd) Influenza Type B (PCR) Not Detected (Not Detectd) - EKG Data -: EKG Interpreted by Me Rate: normal EKG Comments: Electronic ventricular pacemaker. Rate of 60. No ST segment elevation. Changes when compared to old EKG consistent with NSTEMI. This EKG was also shown to and interpreted by my attending physician Dr. Dougherty. - Radiology Data Radiology results: report reviewed, image reviewed Chest x-ray: Cardiomegaly with mild interstitial edema, correlate for CHF exacerbation Abdomen and pelvis CT without contrast: No acute abnormality of the abdomen and pelvis. Atherosclerotic vascular disease. Spinal surgery. There is clearing of small bowel ileus pattern compared to old exam. Disposition Clinical Impression: CHF exacerbation, Fever Disposition: ADMITTED IP TO THIS HOSP Condition: Fair Referrals: [facility],Clinic [Primary Care Provider] - 1-2 days Time of Disposition: 00:59 Decision to Admit Reason: Admit from EC Decision Date: 08/13/21 Decision Time: 01:00
[2021-08-13] MEDS ORDERED: FUROSEMIDE 10 MG/ML 2 ML VIAL IV STA (01:20)
[2021-08-13 01:39] LABS: Glucose,Whole Blood 184 mg/dL (75-99)
[2021-08-13] MEDS ORDERED: ASPIRIN 325 MG TAB PO STA (01:43)
--- NOTE | 2021-08-13 01:45 | P.HPIM ---
History of Present Illness H&P Date: 08/13/21 Patient is an 86-year-old with a PMH of A. fib on Coumadin, s/p pacemaker placement, hypertension, hyperlipidemia, type II DM, BPH, COPD, and obstructive sleep apnea on CPAP who presents to the emergency room with complaints of shortness of breath. The patient reports that he has had gradually worsening shortness of breath over the past 2-3 weeks. He notes that his symptoms however quickly progressed over the prior 3 days. He reports a cough productive of yellow-green to whitish phlegm. Reports bilateral lower extremity edema. Denied experiencing orthopnea or PND. He further denied chest discomfort, nausea, vomiting, diaphoresis. He lives at home with his , and is minimally ambulatory at baseline, and reports that he uses a wheelchair. A CT abdomen and pelvis in the emergency room was unremarkable. Chest x-ray revealed interstitial edema. EKG revealed of the paced rhythm at 60 bpm with T-wave flattening in leads V1 and V2. The patient was febrile in the emergency room with T-max 102.5F, with SpO2 94% on room air. Lab evaluation was remarkable for troponin 0.1, proBNP 5510, sodium 134, potassium 3.2, (previously 1.25 on 05/10). Case reportedly discussed by the ED provider with cardiology on-call who recommended heparin infusion for elevated troponin and shortness of breath, with suspected non-ST elevation GA. Review of systems: Pertinent positives and negatives as discussed in HPI, a complete review of systems was performed and all other systems are negative. Physical examination: General: non toxic, no distress, appears at stated age, obese Derm: no unusual rashes/lesions no unusual ecchymoses, warm, dry Head: atraumatic, normocephalic, symmetric Eyes: EOMI, no lid lag, anicteric sclera, pupils equal round reactive to light ENT: Nose and ears atraumatic, no thrush, no pharyngeal erythema Neck: No thyromegaly, no cervical lymphadenopathy, trachea midline, supple Mouth: no lip lesion, mucus membranes moist Cardiovascular: S1S2 reg, no murmur, positive posterior tibial pulse bilateral, no edema, capillary refill less than 2 seconds Lungs: Diffuse rhonchi and rales without wheezing, no accessory muscle use Abdominal: soft, nontender to palpation, no guarding, no appreciable organomegaly, normal bowel sounds Ext: no gross muscle atrophy, muscle strength 4 out of 5 in all 4 extremities grossly, no contractures, Neuro: CN II-XI grossly intact, light touch intact all 4 extremities, finger to nose within normal limits, Psych: Alert, oriented, appropriate affect Assessment/plan Shortness of breath, suspected multifactorial in setting of community acquired pneumonia and NSTEMI with diastolic CHF -Echo from 2007 revealed intact EF with LVH -Continue with azithromycin and ceftriaxone -Supplemental oxygen -IV Lasix every 12 hourly 40 mg -Cardiology consult -Repeat Echocardiogram -Cardiac monitoring -Monitor electrolytes -Trend troponin -Obtain procalcitonin levels -Aspirin and statin Hypokalemia -Replace and monitor Acute kidney injury, on chronic kidney disease -Hold off on IV fluids in setting of CHF exacerbation -Monitor BMP Chronic conditions: Type II DM, hypertension, hyperlipidemia, BPH, HANNA -Continue with home meds -Check A1c -Insulin sliding scale and blood glucose monitoring -Contact family to bring in CPAP DVT prophylaxis -Heparin infusion The patient is admitted with an anticipated greater than 2 midnight stay for evaluation of NSTEMI CODE STATUS: Full Code Discussed with: Patient Anticipated discharge date: 08/[address]: Home Past Medical History Past Medical History: Atrial Fibrillation, Cancer, COPD, Diabetes Mellitus, Hyperlipidemia, Pneumonia, Prostate Disorder, Skin Disorder, Sleep Apnea/CPAP/BIPAP Additional Past Medical History / Comment(s): bowel perforation 2006, prostate CA, skin cancer spots removed from nose and scalp, hx migraines yr ago, atrial fibrillation status post pacemaker implantation, osteoarthritis, past problem with kidney function , pt state he had a pne vaccine but not sure of date, 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 History of Any Multi-Drug Resistant Organisms: None Reported Past Surgical History: Back Surgery, Bowel Resection, Cardiac Ablation, Heart Catheterization, Orthopedic Surgery, Pacemaker Additional Past Surgical History / Comment(s): back surgery x2 (has cage), bowel surgery for perforation with colostomy/colostomy later reversed, nasal surgery for polyps, otoniel cataracts, arthroscopy rt knee Past Anesthesia/Blood Transfusion Reactions: No Reported Reaction Type of Cardiac Device: Permanent Pacemaker Device Placement Date:: 2013 Past Psychological History: Anxiety Past Alcohol Use History: None Reported Past Drug Use History: None Reported - Past Family History Mother Family Medical History: Cancer Additional Family Medical History / Comment(s): brain Sister(s) Family Medical History: Cancer Additional Family Medical History / Comment(s): breast Father Family Medical History: Diabetes Mellitus, Renal Disease Medications and Allergies Home Medications Medication Instructions Recorded Confirmed Type Atorvastatin [Lipitor] 80 mg PO HS 07/09/14 08/12/21 History Venlafaxine HCl [Effexor] 75 mg PO BID 07/09/14 08/12/21 History Furosemide [Lasix] 40 mg PO BID 05/17/15 08/12/21 History Ferrous Sulfate [Iron (65 MG 325 mg PO DAILY 08/06/15 08/12/21 History Elemental)] INSULIN ASPART (NovoLOG) [NovoLOG 25 unit SQ AC-TID 08/06/15 08/12/21 History (formulary)] amLODIPine [Norvasc] 5 mg PO DAILY 08/06/15 08/12/21 History Albuterol Nebulized [Ventolin 2.5 mg INHALATION RT-QID PRN 01/27/16 08/12/21 History Nebulized] Tamsulosin [Flomax] 0.4 mg PO DAILY 01/27/16 08/12/21 History Bicalutamide [Casodex] 50 mg PO DAILY 11/15/17 08/12/21 History Calcium/Vit D3 600mg/800iu 1 tab PO BID 11/15/17 08/12/21 History Gabapentin [Neurontin] 300 mg PO TID 11/15/17 08/12/21 History Warfarin [Coumadin] 5 mg PO SUTUWETHFRSA@2100 02/14/19 08/12/21 History Warfarin [Coumadin] 2.5 mg PO MO@2100 05/01/19 08/12/21 History Fluticasone Propion/Salmeterol 1 puff INHALATION RT-BID 08/12/21 08/12/21 History [Wixela 100-50 Inhub] Insulin Glargine [Lantus Vial] 55 unit SQ HS 08/12/21 08/12/21 History Metoprolol Succinate (ER) [Toprol 50 mg PO DAILY 08/12/21 08/12/21 History Xl] Omeprazole 20 mg PO BID 08/12/21 08/12/21 History Potassium Chloride ER [K-Dur 20] 20 meq PO DAILY 08/12/21 08/12/21 History hydroCHLOROthiazide 25 mg PO DAILY 08/12/21 08/12/21 History Allergies Allergy/AdvReac Type Severity Reaction Status Date / Time adhesive Allergy blisters, Verified 08/12/21 22:13 skin peels ibuprofen [From Motrin] AdvReac Abdominal Verified 08/12/21 22:13 Pain Physical Exam Vitals: Vital Signs Temp Pulse Resp BP Pulse Ox 08/13/21 00:00 98.2 F 60 22 151/70 95 08/12/21 23:00 60 20 96 08/12/21 21:18 99.3 F 60 14 120/60 96 08/12/21 19:38 102.5 F H 60 18 169/68 94 L 08/12/21 14:20 102.5 F H 65 20 150/68 95 Intake and Output 08/12/21 08/12/21 08/13/21 14:59 22:59 06:59 Other: Weight 106.594 kg Results CBC & Chem 7: 08/12/21 21:32 08/12/21 21:32 Labs: Abnormal Lab Results - Last 24 Hours (Table) 08/12/21 08/12/21 08/12/21 Range/Units 19:41 21:32 21:32 Neutrophils # 8.3 H (1.3-7.7) k/uL Lymphocytes # 0.4 L (1.0-4.8) k/uL PT (9.0-12.0) sec INR (<1.2) APTT (22.0-30.0) sec Sodium 134 L (137-145) mmol/L Potassium 3.2 L (3.5-5.1) mmol/L Chloride 95 L (98-107) mmol/L Carbon Dioxide 31 H (22-30) mmol/L BUN 32 H (9-20) mg/dL Creatinine 1.78 H (0.66-1.25) mg/dL Glucose 219 H (74-99) mg/dL POC Glucose (mg/dL) 220 H (75-99) mg/dL Total Bilirubin 1.5 H (0.2-1.3) mg/dL Troponin I (0.000-0.034) ng/mL 08/12/21 08/12/21 Range/Units 21:32 22:30 Neutrophils # (1.3-7.7) k/uL Lymphocytes # (1.0-4.8) k/uL PT 17.0 H (9.0-12.0) sec INR 1.7 H (<1.2) APTT 39.1 H (22.0-30.0) sec Sodium (137-145) mmol/L Potassium (3.5-5.1) mmol/L Chloride (98-107) mmol/L Carbon Dioxide (22-30) mmol/L BUN (9-20) mg/dL Creatinine (0.66-1.25) mg/dL Glucose (74-99) mg/dL POC Glucose (mg/dL) (75-99) mg/dL Total Bilirubin (0.2-1.3) mg/dL Troponin I 0.100 H* (0.000-0.034) ng/mL
[2021-08-13] MEDS ORDERED: CALCIUM GLUCONATE IN NACL 1 GM in SALINE 1 100ML.BAG IVPB ONE (03:15)
[2021-08-13 03:19] LABS: ABG Base Excess 5.5 mmol/L; ABG HCO3 29 mmol/L (21-25); ABG PCO2 42 mmHg (35-45); ABG PH 7.45 (7.35-7.45); ABG PO2 90 mmHg (83-108); ABG TCO2 31 mmol/L (19-24); Allen Test Performed? Yes
[2021-08-13] MEDS ORDERED: CALCIUM CHLORIDE 100 MG/ML 10 ML SYRINGE IVP ONE (03:19)
[2021-08-13] MEDS ORDERED: DEXTROSE 5% IN WATER 100 ML with AMIODARONE 150 MG IV ONE (03:20)
[2021-08-13] MEDS ORDERED: DEXTROSE 5% IN WATER 250 ML with AMIODARONE 300 MG IV ONE (03:20)
[2021-08-13] MEDS ORDERED: METOPROLOL TARTRATE 25 MG TAB PO STA (03:28)
[2021-08-13] MEDS ORDERED: AMIODARONE 360 MG in DEXTROSE 5% IN WATER 200 ML IV ONE ×2 (03:30)
--- NOTE | 2021-08-13 03:30 | XR ---
EXAMINATION TYPE: XR chest 1V DATE OF EXAM: 08/13/2021 COMPARISON: 08/12/2021 HISTORY: Cardiac arrest TECHNIQUE: Single view FINDINGS: There is left axillary pacemaker. There is no heart failure. Heart size is fairly normal. T here is some coarsening of the interstitial markings. No pleural effusion. There are chest leads. IMPRESSION: Coarse lung markings. There is improvement in the pulmonary congestion compared to yester day. No obvious heart failure.
[2021-08-13] MEDS ORDERED: AZITHROMYCIN 500 MG in SODIUM CHLORIDE 0.9% 250 ML IVPB STA (03:33)
[2021-08-13 03:45] LABS: Basophils # (A) 0.1 k/uL (0-0.2); Basophils % (A) 1 %; Eosinophils # (A) 0.1 k/uL (0-0.7); Eosinophils % (A) 1 %; HCT 40.7 % (39.0-53.0); HGB 13.5 gm/dL (13.0-17.5); Lymphocytes # (A) 1.5 k/uL (1.0-4.8); Lymphocytes % (A) 10 %; MCHC 33.2 g/dL (31.0-37.0); MCV 90.3 fL (80.0-100.0); Mean Platelet Volume 11.3; Monocytes # (A) 1.2 k/uL (0-1.0); Monocytes % (A) 8 %; Neutrophils # (A) 11.3 k/uL (1.3-7.7); Neutrophils % (A) 78 %; Platelet Count 214 k/uL (150-450); RBC 4.51 m/uL (4.30-5.90); RDW 14.4 % (11.5-15.5); WBC 14.5 k/uL (3.8-10.6)
[2021-08-13] MEDS: ATORVASTATIN 80 MG TAB PO SCH ×2 (04:05→14:07)
[2021-08-13 04:06] LABS: Potassium 3.6 mmol/L (3.5-5.1)
[2021-08-13 04:07] LABS: Albumin 4.1 g/dL (3.5-5.0); Calcium 8.7 mg/dL (8.4-10.2); Total Bilirubin 1.6 mg/dL (0.2-1.3)
[2021-08-13] MEDS ORDERED: IPRATROPIUM-ALBUTEROL 3 ML NEB INHALATION PRN (04:22)
[2021-08-13 05:03] LABS: Appearance,Urine Clear (Clear); Bilirubin,Urine Negative (Negative); Blood,Urine Small (Negative); Color,Urine Yellow; Glucose,Urine (UA) Negative (Negative); Hyaline Casts,Urine 9 /lpf (0-2); Ketones,Urine Negative (Negative); Leukocyte Esterase,Urine Negative (Negative); Mucus,Urine Rare /hpf; Nitrite,Urine Negative (Negative); PH, Urine 5.5 (5.0-8.0); Protein,Urine 1+ (Negative); RBC,Urine 6 /hpf (0-5); Specific Gravity,Urine 1.016 (1.001-1.035); Squamous Epithelial Cell,Urine 1 /hpf (0-4); Urobilinogen,Urine <2.0 mg/dL (<2.0); WBC,Urine 1 /hpf (0-5)
[2021-08-13 05:11] LABS: Glucose,Whole Blood 254 mg/dL (75-99)
[2021-08-13 05:53] LABS: Basophils # (A) 0.1 k/uL (0-0.2); Basophils % (A) 0 %; Eosinophils # (A) 0.1 k/uL (0-0.7); Eosinophils % (A) 1 %; HCT 40.1 % (39.0-53.0); Lymphocytes # (A) 0.4 k/uL (1.0-4.8); Lymphocytes % (A) 4 %; MCH 29.8 pg (25.0-35.0); MCHC 32.5 g/dL (31.0-37.0); MCV 91.7 fL (80.0-100.0); Mean Platelet Volume 9.3; Monocytes # (A) 0.7 k/uL (0-1.0); Monocytes % (A) 6 %; Neutrophils # (A) 10.2 k/uL (1.3-7.7); Neutrophils % (A) 88 %; Platelet Count 167 k/uL (150-450); RBC 4.37 m/uL (4.30-5.90); RDW 14.3 % (11.5-15.5); WBC 11.6 k/uL (3.8-10.6)
[2021-08-13 06:14] LABS: INR 1.8 (<1.2); Partial Thromboplastin Time 83.2 sec (22.0-30.0); Prothrombin Time 18.2 sec (9.0-12.0)
[2021-08-13 06:34] LABS: Calcium 9.5 mg/dL (8.4-10.2); Potassium 3.7 mmol/L (3.5-5.1)
[2021-08-13] MEDS ORDERED: Potassium Replacement Protocol 1 EACH MISC MISCELLANE PRN (06:38)
[2021-08-13] MEDS: PANTOPRAZOLE 40 MG TABLET PO SCH (06:53)
[2021-08-13 06:58] LABS: Glucose,Whole Blood 316 mg/dL (75-99)
[2021-08-13] MEDS: INSULIN ASPART (NovoLOG) 100 UNIT/ML VIAL SQ SCH ×5 (07:00→20:49)
[2021-08-13] MEDS ORDERED: POTASSIUM CHLORIDE ER 20 MEQ TAB.ER PO SCH (07:00)
[2021-08-13] MEDS: SYMBICORT 80-4.5 MCG INHALER INHALATION SCH ×2 (08:40→21:34)
[2021-08-13] MEDS: IPRATROPIUM-ALBUTEROL 3 ML NEB INHALATION SCH ×4 (08:40→21:33)
[2021-08-13] MEDS: ASPIRIN 81 MG PO SCH (08:55)
[2021-08-13] MEDS: amLODIPine 5 MG TAB PO SCH (08:55)
[2021-08-13] MEDS: GABAPENTIN 300 MG CAP PO SCH ×3 (08:55→21:09)
[2021-08-13] MEDS: METOPROLOL SUCCINATE (ER) 50 MG TAB.ER.24H PO SCH (08:56)
[2021-08-13] MEDS: FUROSEMIDE 10 MG/ML 4 ML VIAL IV SCH ×2 (08:56→20:37)
[2021-08-13] MEDS: hydroCHLOROthiazide 25 MG TAB PO SCH (08:56)
[2021-08-13] MEDS: TAMSULOSIN 0.4 MG CAP.ER.24H PO SCH (08:56)
[2021-08-13] MEDS ORDERED: AMIODARONE 450 MG in DEXTROSE 5% IN WATER 250 ML IV SCH ×2 (10:00)
--- NOTE | 2021-08-13 10:13 | P.CNPUL ---
History of Present Illness Consult date: 08/13/21 Requesting physician: Dolly Gordon Reason for consult: dyspnea, cough, abnormal CXR/CT Chief complaint: Cough, congestion, weakness History of present illness: This is a very pleasant 86-year-old gentleman with a known history of Hussein's Palsy, hypertension, hyperlipidemia, diabetes mellitus, diastolic congestive heart failure, chronic kidney disease stage III, atrial fibrillation anticoagulated with warfarin status post permanent pacemaker implantation. He also has a history of severe obstructive sleep apnea that includes central apneas. He is on BiPAP at home at 18/14. He has a simple as fullface mask. He sees Dr. Quiroga for the sleep apnea. He follows with Dr. Roth in our office for COPD. He has a FEV1 value 64% of predicted. He is maintained on Wixella and albuterol. For the past several days the patient has had complaints of increasing cough congestion and generalized weakness. He presented here to the emergency room yesterday for the same. While in the emergency department he suffered a brief V. tach/V. fib arrest with brief CPR initiated on amiodarone drip and heparin drip. Chest x-ray revealed evidence of interstitial edema and suspected congestive heart failure. No pleural effusions. No pneumothorax. There is noted cardiomegaly. Noted single wire pacemaker. He was placed on BiPAP and admitted to the intensive care unit. He is seen today in consult ation. He is currently awake and alert in no acute distress. He continues with a loose congested cough. He denies any chest pain or palpitations. He's currently in atrial fibrillation with a paced ventricular rate at 60. He was on BiPAP 14/5 and 50% throughout the night. Currently on 5 L of oxygen with O2 saturation at 100%. He did present with a T-max of 102. Currently afebrile. White count 11.6. Hemoglobin 13.0. Platelets 167. INR 1.8. Sodium 136. Potassium 3.7. Bicarb 25. BUN 34. Creatinine 1.58. Glucose 255. Troponin 0.10, 0.09, 0.09. ProBNP 5510. Urinalysis clean. [place] virus not detected. Influenza screen negative. Echocardiogram pending. He was initiated on DuoNeb inhalations, Symbicort, ceftriaxone and azithromycin. He is also on Lasix 40 mg IV every 12 hours. Pro-calcitonin pending. Review of Systems REVIEW OF SYSTEMS: CONSTITUTIONAL: Positive for generalized weakness. Denies any recent significant weight loss or weight gain. EYES: Denies change in vision. EARS, NOSE, MOUTH, THROAT: Denies headaches, denies sore throat. CARDIOVASCULAR: Denies chest pain, palpitations or syncopal episodes. RESPIRATORY: Positive for shortness of breath, cough, congestion no hemoptysis. GASTROINTESTINAL: Denies change in appetite, denies abdominal pain GENITOURINARY: Denies hematuria, denies infections. MUSKULOSKELETAL: Denies pain, denies swelling. INTEGUMENTARY: Denies rash, denies eczema. NEUROLOGICAL: Denies recent memory loss, no recent seizure activity. PSYCHIATRIC: Denies anxiety, denies depression. HEMATOLOGIC/LYMPHATIC: Denies anemia, denies enlarged lymph nodes. Past Medical History Past Medical History: Atrial Fibrillation, Cancer, COPD, Diabetes Mellitus, Hyperlipidemia, Pneumonia, Prostate Disorder, Skin Disorder, Sleep Apnea/CPAP/BIPAP Additional Past Medical History / Comment(s): bowel perforation 2006, prostate CA, skin cancer spots removed from nose and scalp, hx migraines yr ago, atrial fibrillation status post pacemaker implantation, osteoarthritis, History of Any Multi-Drug Resistant Organisms: None Reported Past Surgical History: Back Surgery, Bowel Resection, Cardiac Ablation, Heart Catheterization, Orthopedic Surgery, Pacemaker Additional Past Surgical History / Comment(s): back surgery x2 (has cage), 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 Smoking Status: Former smoker Past Alcohol Use History: None Reported Additional Past Alcohol Use History / Comment(s): . Past Drug Use History: None Reported - Past Family History Mother Family Medical History: Cancer Additional Family Medical History / Comment(s): brain Sister(s) Family Medical History: Cancer Additional Family Medical History / Comment(s): breast Father Family Medical History: Diabetes Mellitus, Renal Disease Medications and Allergies Home Medications Medication Instructions Recorded Confirmed Type Atorvastatin [Lipitor] 80 mg PO HS 07/09/14 08/12/21 History Venlafaxine HCl [Effexor] 75 mg PO BID 07/09/14 08/12/21 History Furosemide [Lasix] 40 mg PO BID 05/17/15 08/12/21 History Ferrous Sulfate [Iron (65 MG 325 mg PO DAILY 08/06/15 08/12/21 History Elemental)] INSULIN ASPART (NovoLOG) [NovoLOG 25 unit SQ AC-TID 08/06/15 08/12/21 History (formulary)] amLODIPine [Norvasc] 5 mg PO DAILY 08/06/15 08/12/21 History Albuterol Nebulized [Ventolin 2.5 mg INHALATION RT-QID PRN 01/27/16 08/12/21 History Nebulized] Tamsulosin [Flomax] 0.4 mg PO DAILY 01/27/16 08/12/21 History Bicalutamide [Casodex] 50 mg PO DAILY 11/15/17 08/12/21 History Calcium/Vit D3 600mg/800iu 1 tab PO BID 11/15/17 08/12/21 History Gabapentin [Neurontin] 300 mg PO TID 11/15/17 08/12/21 History Warfarin [Coumadin] 5 mg PO SUTUWETHFRSA@2100 02/14/19 08/12/21 History Warfarin [Coumadin] 2.5 mg PO MO@2100 05/01/19 08/12/21 History Fluticasone Propion/Salmeterol 1 puff INHALATION RT-BID 08/12/21 08/12/21 History [Wixela 100-50 Inhub] Insulin Glargine [Lantus Vial] 55 unit SQ HS 08/12/21 08/12/21 History Metoprolol Succinate (ER) [Toprol 50 mg PO DAILY 08/12/21 08/12/21 History Xl] Omeprazole 20 mg PO BID 08/12/21 08/12/21 History Potassium Chloride ER [K-Dur 20] 20 meq PO DAILY 08/12/21 08/12/21 History hydroCHLOROthiazide 25 mg PO DAILY 08/12/21 08/12/21 History Allergies Allergy/AdvReac Type Severity Reaction Status Date / Time adhesive Allergy blisters, Verified 08/12/21 22:13 skin peels ibuprofen [From Motrin] AdvReac Abdominal Verified 08/12/21 22:13 Pain Physical Exam Vitals: Vital Signs Temp Pulse Resp BP Pulse Ox 08/13/21 09:00 60 15 142/69 94 L 08/13/21 08:52 60 08/13/21 08:40 59 L 08/13/21 08:00 98.6 F 60 22 144/65 99 08/13/21 07:00 60 18 127/58 96 08/13/21 06:45 60 22 129/61 96 08/13/21 06:30 60 20 125/61 96 08/13/21 06:15 59 L 19 139/69 08/13/21 06:00 62 20 141/77 97 08/13/21 05:45 68 24 138/63 98 08/13/21 05:30 62 28 H 152/85 98 08/13/21 05:26 20 08/13/21 05:15 99.9 F H 64 20 151/91 98 08/13/21 04:30 73 21 185/85 98 08/13/21 04:00 74 23 182/89 100 08/13/21 03:30 98.8 F 76 21 193/92 100 08/13/21 03:15 66 25 H 180/99 99 08/13/21 03:00 157/87 08/13/21 00:00 98.2 F 60 22 151/70 95 08/12/21 23:00 60 20 96 08/12/21 21:18 99.3 F 60 14 120/60 96 08/12/21 19:38 102.5 F H 60 18 169/68 94 L 08/12/21 14:20 102.5 F H 65 20 150/68 95 Intake and Output 08/12/21 08/13/21 08/13/21 22:59 06:59 14:59 Intake Total 60.661 100 Output Total 150 135 Balance -89.339 -35 Intake: Intake, IV Titration 60.661 Amount Heparin Sod,Pork in 0.45% 60.661 NaCl 25,000 unit In 0.45 % NaCl 1 250ml.bag @ 9.38 UNITS/KG/HR 9.999 mls/hr IV .Q24H [facility] Rx#: [id number] Oral 100 Output: Urine 150 135 Other: Voiding Method Indwelling Catheter Indwelling Catheter Weight 109.9 kg GENERAL EXAM: Alert, very pleasant morbidly obese 86-year-old male patient, currently on 5 L nasal cannula, comfortable in no apparent distress. HEAD: Normocephalic. History of Hussein's palsy EYES: Normal reaction of pupils, equal size. NOSE: Clear with pink turbinates. THROAT: No erythema or exudates. NECK: No masses, no JVD. CHEST: No chest wall deformity. LUNGS: Equal air entry with bilateral scattered rhonchi, expiratory wheeze, crackles in the posterior bases CVS: S1 and S2 normal with no audible murmur, regular rhythm. ABDOMEN: No hepatosplenomegaly, normal bowel sounds, no guarding or rigidity. SPINE: No scoliosis or deformity SKIN: No rashes CENTRAL NERVOUS SYSTEM: No focal deficits, tone is normal in all 4 extremities. EXTREMITIES: There is trace peripheral edema. No clubbing, no cyanosis. Peripheral pulses are intact. Results - Laboratory Findings CBC and BMP: 08/13/21 05:37 08/13/21 11:43 PT/INR, D-dimer PT 18.2 sec (9.0-12.0) H 08/13/21 05:37 INR 1.8 (<1.2) H 08/13/21 05:37 Abnormal lab findings: Abnormal Labs 08/12/21 08/12/21 08/12/21 19:41 21:32 21:32 WBC Neutrophils # 8.3 H Lymphocytes # 0.4 L Monocytes # PT INR APTT Sodium 134 L Potassium 3.2 L Chloride 95 L Carbon Dioxide 31 H BUN 32 H Creatinine 1.78 H Glucose 219 H POC Glucose (mg/dL) 220 H Plasma Lactic Acid Fabian Total Bilirubin 1.5 H Troponin I Urine Protein Urine Blood Urine RBC Hyaline Casts Urine Mucus 08/12/21 08/12/21 08/13/21 21:32 22:30 01:33 WBC Neutrophils # Lymphocytes # Monocytes # PT 17.0 H INR 1.7 H APTT 39.1 H Sodium Potassium Chloride Carbon Dioxide BUN Creatinine Glucose POC Glucose (mg/dL) 184 H Plasma Lactic Acid Fabian Total Bilirubin Troponin I 0.100 H* Urine Protein Urine Blood Urine RBC Hyaline Casts Urine Mucus 08/13/21 08/13/21 08/13/21 03:15 03:15 03:15 WBC 14.5 H Neutrophils # 11.3 H Lymphocytes # Monocytes # 1.2 H PT INR APTT Sodium 136 L Potassium Chloride 94 L Carbon Dioxide 31 H BUN 34 H Creatinine 1.70 H Glucose 211 H POC Glucose (mg/dL) Plasma Lactic Acid Fabian Total Bilirubin 1.6 H Troponin I 0.097 H* Urine Protein Urine Blood Urine RBC Hyaline Casts Urine Mucus 08/13/21 08/13/21 08/13/21 03:15 04:44 05:10 WBC Neutrophils # Lymphocytes # Monocytes # PT INR APTT Sodium Potassium Chloride Carbon Dioxide BUN Creatinine Glucose POC Glucose (mg/dL) 254 H Plasma Lactic Acid Fabian 2.5 H* Total Bilirubin Troponin I Urine Protein 1+ H Urine Blood Small H Urine RBC 6 H Hyaline Casts 9 H Urine Mucus Rare H 08/13/21 08/13/21 08/13/21 05:37 05:37 05:37 WBC 11.6 H Neutrophils # 10.2 H Lymphocytes # 0.4 L Monocytes # PT 18.2 H INR 1.8 H APTT 83.2 H Sodium Potassium Chloride Carbon Dioxide BUN Creatinine Glucose POC Glucose (mg/dL) Plasma Lactic Acid Fabian Total Bilirubin Troponin I 0.093 H* Urine Protein Urine Blood Urine RBC Hyaline Casts Urine Mucus 08/13/21 08/13/21 05:37 06:57 WBC Neutrophils # Lymphocytes # Monocytes # PT INR APTT Sodium 136 L Potassium Chloride Carbon Dioxide BUN 34 H Creatinine 1.58 H Glucose 255 H POC Glucose (mg/dL) 316 H Plasma Lactic Acid Fabian Total Bilirubin Troponin I Urine Protein Urine Blood Urine RBC Hyaline Casts Urine Mucus - Diagnostic Findings Chest x-ray: image reviewed Assessment and Plan Assessment: Acute hypoxic respiratory failure secondary to an acute exacerbation of diastolic congestive heart failure and suspected underlying bronchitis/pneumonia, COPD exacerbation Brief V. tach cardiac arrest in the emergency department requiring brief CPR with return of spontaneous circulation. Currently on amiodarone drip. Heparin drip. History of diastolic congestive heart failure with preserved left ventricular systolic function ejection fraction 50-55% Atrial fibrillation, anticoagulated with warfarin in the outpatient setting Single chamber permanent pacemaker secondary to above Severe obstructive sleep apnea with noted central apneas on BiPAP in the outpatient setting Chronic obstructive pulmonary disease with an FEV1 value 64% of predicted, maintained on Wixella and albuterol in the outpatient setting Morbid obesity History of Hussein's palsy Chronic kidney disease History of prostate cancer with previous radiation Hyperlipidemia Hypertension History of previous spine surgery Plan: The patient was seen and evaluated Chest x-ray and labs reviewed Continue IV diuretics Continue IV antibiotics, bronchodilators Procalcitonin pending Remains on amiodarone drip Remains on heparin drip Increased BiPAP settings to 18/14 and 40% FiO2 per home settings Add IV Solu-Medrol Titrate the FiO2 as tolerated Continue to monitor closely here in the intensive care unit I have personally seen and examined the patient, performed the documentation and the assessment and plan as written. Number of minutes spent on the visit: 20. I have personally seen and examined the patient and reviewed the documentation. I performed a joint evaluation with the nurse practitioner in this evaluation was done more than 30 minutes. I fully agree with the documentation above and the plan of care. The patient was hospitalized for fever and cough and congestion consistent with bronchitis, possible early pneumonia. Subsequently, the patient had a cardiac event in the emergency department with the patient had a brief bout of ventricular tachyarrhythmia, V. tach during which the patient received CPR. The patient subsequently regained blood pressure and the rhythm and the patient went into normal sinus rhythm with frequent PVCs and the patient was started on amiodarone drip and IV heparin drip. Note that the patient has diastolic heart failure with an ejection fraction of 50-55%. History of any chest pain. Currently is on IV heparin. His current cardiac rhythm is paced. Cardiology is on the case. The patient will be kept on IV amiodarone for now. There is a potential switching this patient to oral amiodarone after consulting with cardiology. The patient is known to me from the sleep center and the patient is known to have severe sleep apnea maintained on BiPAP at a pressure of 80-40 cm of water no patient basis. The patient also has moderately severe COPD maintain a week still on outpatient basis. Continue bronchodilators. Continue steroids. Continue empiric antibiotic coverage with IV Rocephin. Monitor fever pattern. Cardiology to consult regarding the ventricular tachyarrhythmia and a cardiac arrest. Echocardiogram needs to be repeated. We'll continue to follow. May need a cardiac catheterization especially of the echocardiogram shows new abnormalities. Time with Patient: Greater than 30
--- NOTE | 2021-08-13 11:51 | P.CRDCN ---
History of Present Illness History of present illness: Patient with history of sick sinus syndrome status post permanent pacemaker permanent atrial fibrillation hypertension dyslipidemia I2 diabetes obstructive sleep apnea on CPAP presented to Hospital complaining of shortness of breath. He has had progressively worsening shortness of breath for the last 2-3 weeks. He reports cough with yellowish-green sputum. He has bilateral leg edema. Did not have any episodes of chest pain. His chest x-ray revealed pulmonary congestion computed tomography scan of the abdomen was negative. An EKG revealed paced rhythm with nonspecific ST-T wave changes. He was febrile with a temperature of 102. Blood cultures are pending at this time Patient is afebrile. After his initial presentation to the emergency room he had an episode of ventricular tachycardia and apparently became pulseless and had brief CPR. There is one rhythm strips that looks like V. tach V. fib but most of the rhythm strips that wraps told in the system appears like artifact. His troponins are mildly elevated. Patient is currently in the ICU on IV amiodarone and has remained stable since yesterday. He did not have any episodes of chest pain. Currently not in respiratory distress. I will obtain a 2-D echo to assess his LV function and wall motion once his pneumonia improves he will need cardiac catheterization to rule out significant obstructive CAD. I will continue the heparin. Review of systems: Constitutional: Denies chills. Significant for febrile illness Eyes: Denies blurred vision. Denies pain. Ears, nose, mouth and throat: Denies headache. Denies sore throat. Cardiovascular: Denies chest pain. Significant for shortness of breath Respiratory: Denies cough. Gastrointestinal: Denies abdominal pain. Denies diarrhea. Denies nausea. Denies vomiting. Musculoskeletal: Denies myalgias. Integumentary: Denies pruritus. Denies rash. Neurological: Denies numbness. Denies weakness. Psychiatric: Denies anxiety. Denies depression. Endocrine: Denies fatigue. Denies weight change. Genitourinary: Denies burning, hematuria, frequency of urination. Hematological: No anemia or excess bleeding. General: The patient is awake and alert, in no distress, and does not appear acutely ill. Skin: Skin is warm and dry and no rashes or lesions are noted. Eye: Pupils are equal, round and reactive to light, extra-ocular movements are intact; there is normal conjunctiva bilaterally. Ears, nose, mouth and throat: There are moist mucous membranes and no oral lesions. Neck: The neck is supple, there is no tenderness or JVD. Cardiovascular: There is irregular regular rate and rhythm. No murmur, rub or gallop is appreciated. Respiratory: Lungs are clear to auscultation, respirations are non-labored, breath sounds are equal. Gastrointestinal: Soft, non-distended, non-tender abdomen without masses or organomegaly noted. There is no rebound or guarding present. Bowel sounds are unremarkable. Back: There is no tenderness to palpation in the midline. There is no obvious deformity. Musculoskeletal: Normal ROM, no tenderness, There is no pedal edema. There is no calf tenderness or swelling. Extremities: Mild bilateral pitting edema Vascular: Femoral pulse is normal. Posterior tibial pulses are normal .Dorsalis pedis is palpable. Neurological: CN II-XII intact. There are no obvious motor or sensory deficits. Speech is normal. Psychiatric: Cooperative, appropriate mood & affect, normal judgment. Assessment and plan: Shortness of breath probably due to a combination of pneumonia acute non-STEMI and possible diastolic heart failure #2 ventricular tachycardia #3 permanent atrial fibrillation #46 sinus syndrome status post permanent pacemaker I will change the amiodarone to by mouth continue the IV heparin check an echocardiogram continue current medications and once the pneumonia issues resolve will need invasive angiography Past Medical History Past Medical History: Atrial Fibrillation, Cancer, COPD, Diabetes Mellitus, Hyperlipidemia, Pneumonia, Prostate Disorder, Skin Disorder, Sleep Apnea/CPAP/BIPAP Additional Past Medical History / Comment(s): bowel perforation 2006, prostate CA, skin cancer spots removed from nose and scalp, hx migraines yr ago, atrial fibrillation status post pacemaker implantation, osteoarthritis, History of Any Multi-Drug Resistant Organisms: None Reported Past Surgical History: Back Surgery, Bowel Resection, Cardiac Ablation, Heart Catheterization, Orthopedic Surgery, Pacemaker Additional Past Surgical History / Comment(s): back surgery x2 (has cage), 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 Smoking Status: Former smoker Past Alcohol Use History: None Reported Additional Past Alcohol Use History / Comment(s): . Past Drug Use History: None Reported - Past Family History Mother Family Medical History: Cancer Additional Family Medical History / Comment(s): brain Sister(s) Family Medical History: Cancer Additional Family Medical History / Comment(s): breast Father Family Medical History: Diabetes Mellitus, Renal Disease Medications and Allergies Home Medications Medication Instructions Recorded Confirmed Type Atorvastatin [Lipitor] 80 mg PO HS 07/09/14 08/12/21 History Venlafaxine HCl [Effexor] 75 mg PO BID 07/09/14 08/12/21 History Furosemide [Lasix] 40 mg PO BID 05/17/15 08/12/21 History Ferrous Sulfate [Iron (65 MG 325 mg PO DAILY 08/06/15 08/12/21 History Elemental)] INSULIN ASPART (NovoLOG) [NovoLOG 25 unit SQ AC-TID 08/06/15 08/12/21 History (formulary)] amLODIPine [Norvasc] 5 mg PO DAILY 08/06/15 08/12/21 History Albuterol Nebulized [Ventolin 2.5 mg INHALATION RT-QID PRN 01/27/16 08/12/21 History Nebulized] Tamsulosin [Flomax] 0.4 mg PO DAILY 01/27/16 08/12/21 History Bicalutamide [Casodex] 50 mg PO DAILY 11/15/17 08/12/21 History Calcium/Vit D3 600mg/800iu 1 tab PO BID 11/15/17 08/12/21 History Gabapentin [Neurontin] 300 mg PO TID 11/15/17 08/12/21 History Warfarin [Coumadin] 5 mg PO SUTUWETHFRSA@209902/14/19 08/12/21 History Warfarin [Coumadin] 2.5 mg PO MO@2100 05/01/19 08/12/21 History Fluticasone Propion/Salmeterol 1 puff INHALATION RT-BID 08/12/21 08/12/21 Histor y [Wixela 100-50 Inhub] Insulin Glargine [Lantus Vial] 55 unit SQ HS 08/12/21 08/12/21 History Metoprolol Succinate (ER) [Toprol 50 mg PO DAILY 08/12/21 08/12/21 History Xl] Omeprazole 20 mg PO BID 08/12/21 08/12/21 History Potassium Chloride ER [K-Dur 20] 20 meq PO DAILY 08/12/21 08/12/21 History hydroCHLOROthiazide 25 mg PO DAILY 08/12/21 08/12/21 History Allergies Allergy/AdvReac Type Severity Reaction Status Date / Time adhesive Allergy blisters, Verified 08/12/21 22:13 skin peels ibuprofen [From Motrin] AdvReac Abdominal Verified 08/12/21 22:13 Pain Physical Exam Vitals: Vital Signs Temp Pulse Resp BP Pulse Ox 08/13/21 11:00 60 19 131/66 100 08/13/21 10:00 60 22 136/66 100 08/13/21 09:00 60 15 142/69 94 L 08/13/21 08:52 60 08/13/21 08:40 59 L 08/13/21 08:00 98.6 F 60 22 144/65 99 08/13/21 07:00 60 18 127/58 96 08/13/21 06:45 60 22 129/61 96 08/13/21 06:30 60 20 125/61 96 08/13/21 06:15 59 L 19 139/69 08/13/21 06:00 62 20 141/77 97 08/13/21 05:45 68 24 138/63 98 08/13/21 05:30 62 28 H 152/85 98 08/13/21 05:26 20 08/13/21 05:15 99.9 F H 64 20 151/91 98 08/13/21 04:30 73 21 185/85 98 08/13/21 04:00 74 23 182/89 100 08/13/21 03:30 98.8 F 76 21 193/92 100 08/13/21 03:15 66 25 H 180/99 99 08/13/21 03:00 157/87 08/13/21 00:00 98.2 F 60 22 151/70 95 08/12/21 23:00 60 20 96 08/12/21 21:18 99.3 F 60 14 120/60 96 08/12/21 19:38 102.5 F H 60 18 169/68 94 L 08/12/21 14:20 102.5 F H 65 20 150/68 95 Intake and Output 08/12/21 08/13/21 08/13/21 22:59 06:59 14:59 Intake Total 60.661 100 Output Total 150 135 Balance -89.339 -35 Intake: Intake, IV Titration 60.661 Amount Heparin Sod,Pork in 0.45% 60.661 NaCl 25,000 unit In 0.45 % NaCl 1 250ml.bag @ 9.38 UNITS/KG/HR 9.999 mls/hr IV .Q24H [facility] Rx#: [id number] Oral 100 Output: Urine 150 135 Other: Voiding Method Indwelling Catheter Indwelling Catheter Weight 109.9 kg Results 08/13/21 05:37 08/13/21 05:37 Cardiac Enzymes 08/12/21 08/12/21 08/13/21 Range/Units 21:32 21:32 03:15 AST 29 (17-59) U/L Troponin I 0.100 H* 0.097 H* (0.000-0.034) ng/mL 08/13/21 08/13/21 Range/Units 03:15 05:37 AST 31 (17-59) U/L Troponin I 0.093 H* (0.000-0.034) ng/mL Coagulation 08/12/21 08/13/21 Range/Units 22:30 05:37 PT 17.0 H 18.2 H (9.0-12.0) sec APTT 39.1 H 83.2 H (22.0-30.0) sec CBC 08/12/21 08/13/21 08/13/21 Range/Units 21:32 03:15 05:37 WBC 9.8 14.5 H 11.6 H (3.8-10.6) k/uL RBC 4.37 4.51 4.37 (4.30-5.90) m/uL Hgb 13.0 13.5 13.0 (13.0-17.5) gm/dL Hct 39.0 40.7 40.1 (39.0-53.0) % Plt Count 181 214 167 (150-450) k/uL Comprehensive Metabolic Panel 08/12/21 08/13/21 08/13/21 Range/Units 21:32 03:15 05:37 Sodium 134 L 136 L 136 L (137-145) mmol/L Potassium 3.2 L 3.6 3.7 (3.5-5.1) mmol/L Chloride 95 L 94 L 98 (98-107) mmol/L Carbon Dioxide 31 H 31 H 25 (22-30) mmol/L BUN 32 H 34 H 34 H (9-20) mg/dL Creatinine 1.78 H 1.70 H 1.58 H (0.66-1.25) mg/dL Glucose 219 H 211 H 255 H (74-99) mg/dL Calcium 8.5 8.7 9.5 (8.4-10.2) mg/dL AST 29 31 (17-59) U/L ALT 16 16 (4-49) U/L Alkaline Phosphatase 112 114 (38-126) U/L Total Protein 6.9 7.0 (6.3-8.2) g/dL Albumin 3.9 4.1 (3.5-5.0) g/dL Current Medications Generic Name Dose Route Start Last Admin Trade Name Freq PRN Reason Stop Dose Admin Acetaminophen 650 mg 08/13/21 00:56 Acetaminophen Tab 325 Mg Tab PO Q6HR PRN Mild Pain or Fever > 100.5 Albuterol/Ipratropium 3 ml 08/13/21 04:22 Ipratropium-Albuterol 3 Ml Neb INHALATION RT-QID PRN Shortness Of Breath Or Wheezing Albuterol/Ipratropium 3 ml 08/13/21 08:00 08/13/21 08:40 Ipratropium-Albuterol 3 Ml Neb INHALATION 3 ml RT-QID [facility] Administration Amiodarone HCl 200 mg 08/13/21 11:15 Amiodarone 200 Mg Tab PO BID [facility] Amlodipine Besylate 5 mg 08/13/21 09:00 08/13/21 08:55 Amlodipine 5 Mg Tab PO 5 mg DAILY [facility]Y Administration Aspirin 81 mg 08/13/21 09:00 08/13/21 08:55 Aspirin 81 Mg PO 81 mg DAILY [facility] Administration Atorvastatin Calcium 80 mg 08/13/21 01:45 08/13/21 04:05 Atorvastatin 80 Mg Tab PO Not Given Q12H [facility] Budesonide/Formoterol Fumarate 2 puff 08/13/21 08:00 08/13/21 08:40 Symbicort 80-4.5 Mcg Inhaler INHALATION Not Given RT-BID J[facility]Y Furosemide 40 mg 08/13/21 09:00 08/13/21 08:56 Furosemide 10 Mg/Ml 4 Ml Vial IV 40 mg Q12H [facility] Administration Gabapentin 300 mg 08/13/21 09:00 08/13/21 08:55 Gabapentin 300 Mg Cap PO 300 mg TID J[facility]Y Administration Heparin Sodium (Porcine) 0 unit 08/12/21 23:28 Heparin Sodium 1,000 Un/Ml (10ml Vl) IV PER PROTOCOL PRN Low PTT Protocol Hydrochlorothiazide 25 mg 08/13/21 09:00 08/13/21 08:56 Hydrochlorothiazide 25 Mg Tab PO 25 mg DAILY [facility]Y Administration Heparin Sodium/Sodium Chloride 250 mls @ 9.999 mls/hr 08/12/21 23:30 08/13/21 06:43 25,000 unit/ Sodium Chloride IV 7.38 units/kg/hr .Q24H [facility] 7.867 mls/hr Titration Protocol 9.38 UNITS/KG/HR Ceftriaxone Sodium 1 gm/ 50 mls @ 100 mls/hr 08/14/21 04:00 Sodium Chloride IVPB Q24H [facility] Protocol Insulin Aspart 0 unit 08/13/21 07:30 08/13/21 07:00 Insulin Aspart (Novolog) 100 Unit/Ml Vial SQ 8 unit ACHS [facility]Y Administration Protocol Methylprednisolone Sodium Succinate 60 mg 08/13/21 10:30 Methylprednisolone Sod Succi 125 Mg/2 Ml Vial IV Q8HR [facility] Metoprolol Succinate 50 mg 08/13/21 09:00 08/13/21 08:56 Metoprolol Succinate (Er) 50 Mg Tab.Er.24h PO 50 mg DAILY [facility]Y Administration Miscellaneous Information 1 each 08/13/21 06:38 Potassium Replacement Protocol 1 Each Misc MISCELLANE DAILY PRN Per Protocol Protocol Naloxone HCl 0.2 mg 08/13/21 00:56 Naloxone 0.4 Mg/Ml 1 Ml Vial IV Q2M PRN Opioid Reversal Pantoprazole Sodium 40 mg 08/13/21 07:30 08/13/21 06:53 Pantoprazole 40 Mg Tablet PO 40 mg AC-BRKFST JERRY Administration Tamsulosin HCl 0.4 mg 08/13/21 09:00 08/13/21 08:56 Tamsulosin 0.4 Mg Cap.Er.24h PO 0.4 mg DAILY [facility]Y Administration Intake and Output 08/12/21 08/13/21 08/13/21 22:59 06:59 14:59 Intake Total 60.661 100 Output Total 150 135 Balance -89.339 -35 Intake: Intake, IV Titration 60.661 Amount Heparin Sod,Pork in 0.45% 60.661 NaCl 25,000 unit In 0.45 % NaCl 1 250ml.bag @ 9.38 UNITS/KG/HR 9.999 mls/hr IV .Q24H [facility] Rx#: [id number] Oral 100 Output: Urine 150 135 Other: Voiding Method Indwelling Catheter Indwelling Catheter Weight 109.9 kg 08/13/21 05:37 08/13/21 05:37
[2021-08-13] MEDS: AMIODARONE 200 MG TAB PO SCH ×2 (11:54→20:37)
[2021-08-13] MEDS: methylPREDNISolone SOD SUCCI 125 MG/2 ML VIAL IV SCH ×2 (11:56→17:16)
[2021-08-13 12:02] LABS: Glucose,Whole Blood 220 mg/dL (75-99)
--- NOTE | 2021-08-13 12:47 | CA ---
Transthoracic Echo Report Name: Mario Salvador Age: 86 Gender: M : 1935 Exam Date: 08/13/2021 08:20 Exam Location: [place] [facility] Ht (in): 69 Wt (lb): 242 Ordering Physician: Dolly Gordon MD Attending/Referring Phys: [employer]gon[employer] Specialist Neli Duncan RDCS Procedure CPT: Indications: chf Cardiac Hx: COPD, DM, AFIB, CHOL Technical Quality: Technically difficult study Contrast 1: Lumason Total Dose (mL): 5 Contrast 2: Total Dose (mL): MEASUREMENTS (Male / Female) Normal Values 2D ECHO LV Diastolic Diameter PLAX 5.6 cm 4.2 - 5.9 / 3.9 - 5.3 cm LV Systolic Diameter PLAX 4.8 cm IVS Diastolic Thickness 1.4 cm 0.6 - 1.0 / 0.6 - 0.9 cm LVPW Diastolic Thickness 1.3 cm 0.6 - 1.0 / 0.6 - 0.9 cm LV Relative Wall Thickness 0.5 RV Internal Dim ED PLAX 3.3 cm LA Systolic Diameter LX 5.1 cm 3.0 - 4.0 / 2.7 - 3.8 cm LA Volume 94.2 cm 18 - 58 / 22 - 52 cm M-MODE Aortic Root Diameter MM 3.4 cm MV E Point Septal Separation 1.0 cm DOPPLER AV Peak Velocity 281.7 cm/s AV Peak Gradient 31.7 mmHg AV Mean Velocity 183.3 cm/s AV Mean Gradient 16.0 mmHg AV Velocity Time Integral 58.3 cm LVOT Peak Velocity 83.9 cm/s LVOT Peak Gradient 2.8 mmHg FINDINGS Left Ventricle Mildly increased left ventricular wall thickness. Moderately reduced global left ventricular systolic function. EF 25% Right Ventricle Normal right ventricular size and function. Right ventricular systolic pressure within normal limits. Right Atrium Normal right atrial size. Left Atrium Moderately increased left atrial diameter. Severely increased left atrial volume. Mildly increased left atrial area. Mitral Valve Mild mitral regurgitation. Aortic Valve Aortic valve not well visualized. [id number] aortic stenosis with a peak gradient of 32 mmHg and a mean gradient of 16 mmHg. Tricuspid Valve Mild tricuspid regurgitation. Pulmonic Valve Pulmonic valve not well visualized. Pericardium Echo free space anterior to the right ventricle likely represents a fat pad. Aorta Aortic root and proximal ascending aorta not well visualized. CONCLUSIONS Poor quality study. Normal LV size or LV function with ejection fraction to 2530% range with mild to moderate aortic stenosis no pulmonary hypertension Previewed by: Dr. Leo Weller MD (Electronically Signed) Final Date: 13 August 2021 12:46
[2021-08-13] MEDS: POTASSIUM CHLORIDE ER 20 MEQ TAB.ER PO SCH ×2 (14:07→17:16)
[2021-08-13 16:58] LABS: Glucose,Whole Blood 285 mg/dL (75-99)
[2021-08-13 20:25] LABS: Glucose,Whole Blood 384 mg/dL (75-99)
[2021-08-13] MEDS ORDERED: INSULIN DETEMIR (LEVEMIR) 100 UNIT/ML SYR SQ SCH (21:00)
[2021-08-14 00:16] LABS: Glucose,Whole Blood 337 mg/dL (75-99)
[2021-08-14] MEDS: HEPARIN SOD,PORK IN 0.45% NACL 25,000 UNIT in 0.45% NACL 1 250ML.BAG IV SCH ×2 (00:21→04:12)
[2021-08-14] MEDS: methylPREDNISolone SOD SUCCI 125 MG/2 ML VIAL IV SCH ×4 (00:22→23:34)
[2021-08-14] MEDS: ATORVASTATIN 80 MG TAB PO SCH ×2 (00:22→20:33)
[2021-08-14] MEDS: INSULIN ASPART (NovoLOG) 100 UNIT/ML VIAL SQ SCH ×9 (06:36→20:32)
[2021-08-14 06:39] LABS: Glucose,Whole Blood 350 mg/dL (75-99)
[2021-08-14 06:41] LABS: Glucose,Whole Blood 341 mg/dL (75-99)
[2021-08-14] MEDS: PANTOPRAZOLE 40 MG TABLET PO SCH (06:42)
[2021-08-14] MEDS: SYMBICORT 80-4.5 MCG INHALER INHALATION SCH ×2 (07:29→21:39)
[2021-08-14] MEDS: IPRATROPIUM-ALBUTEROL 3 ML NEB INHALATION SCH ×4 (07:29→21:39)
[2021-08-14 08:41] LABS: Basophils % (A) 0 %; Eosinophils % (A) 0 %; HCT 38.3 % (39.0-53.0); Hypochromasia Slight; Lymphocytes # (A) 0.5 k/uL (1.0-4.8); Lymphocytes % (A) 7 %; MCH 29.9 pg (25.0-35.0); MCHC 31.4 g/dL (31.0-37.0); MCV 95.2 fL (80.0-100.0); Monocytes # (A) 0.3 k/uL (0-1.0); Monocytes % (A) 3 %; Neutrophils # (A) 6.4 k/uL (1.3-7.7); Neutrophils % (A) 88 %; Platelet Count 165 k/uL (150-450); RBC 4.02 m/uL (4.30-5.90); RDW 14.2 % (11.5-15.5); WBC 7.2 k/uL (3.8-10.6)
[2021-08-14 08:51] LABS: Albumin 3.5 g/dL (3.5-5.0); Calcium 8.6 mg/dL (8.4-10.2); Potassium 3.9 mmol/L (3.5-5.1); Total Bilirubin 0.9 mg/dL (0.2-1.3); Total Protein 6.3 g/dL (6.3-8.2)
--- NOTE | 2021-08-14 09:20 | P.PN ---
Subjective Progress Note Date: 08/14/21 Objective - Vital Signs Vital signs: Vital Signs Temp 96.9 F L 08/14/21 04:00 Pulse 60 08/14/21 07:40 Resp 18 08/14/21 07:40 BP 103/48 08/14/21 07:00 Pulse Ox 90 L 08/14/21 07:00 Intake & Output 08/13/21 08/14/21 08/14/21 18:59 06:59 18:59 Intake Total 352.84 494.687 10 Output Total 1075 775 90 Balance -722.16 -280.313 -80 Weight 109.9 kg Intake: IV 160 10 0.9 110 10 cefTRIAXone 1 gm In 50 Sodium Chloride 0.9% 50 ml @ 100 mls/hr IVPB Q24H [facility] Rx#:[id number] Intake, IV Titration 52.84 84.687 Amount Heparin Sod,Pork in 0.45% 52.84 84.687 NaCl 25,000 unit In 0.45 % NaCl 1 250ml.bag @ 9.38 UNITS/KG/HR 9.999 mls/hr IV .Q24H [facility] Rx#: [id number] Oral 300 250 Output: Urine 1075 775 90 Other: Voiding Method Indwelling Catheter Indwelling Catheter - Labs CBC & Chem 7: 08/14/21 08:18 08/14/21 08:18 Labs: Abnormal Lab Results - Last 24 Hours (Table) 08/13/21 08/13/21 08/13/21 Range/Units 03:11 05:37 05:37 RBC (4.30-5.90) m/uL Hgb (13.0-17.5) gm/dL Hct (39.0-53.0) % Lymphocytes # (1.0-4.8) k/uL APTT (22.0-30.0) sec ABG HCO3 29 H (21-25) mmol/L ABG Total CO2 31 H (19-24) mmol/L Sodium (137-145) mmol/L Chloride (98-107) mmol/L BUN (9-20) mg/dL Creatinine (0.66-1.25) mg/dL Glucose (74-99) mg/dL POC Glucose (mg/dL) (75-99) mg/dL Hemoglobin A1c 8.5 H (0.0-6.0) % Procalcitonin 0.19 H (0.02-0.09) ng/mL 08/13/21 08/13/21 08/13/21 Range/Units 11:43 12:00 16:57 RBC (4.30-5.90) m/uL Hgb (13.0-17.5) gm/dL Hct (39.0-53.0) % Lymphocytes # (1.0-4.8) k/uL APTT 79.4 H (22.0-30.0) sec ABG HCO3 (21-25) mmol/L ABG Total CO2 (19-24) mmol/L Sodium (137-145) mmol/L Chloride (98-107) mmol/L BUN (9-20) mg/dL Creatinine (0.66-1.25) mg/dL Glucose (74-99) mg/dL POC Glucose (mg/dL) 220 H 285 H (75-99) mg/dL Hemoglobin A1c (0.0-6.0) % Procalcitonin (0.02-0.09) ng/mL 08/13/21 08/13/21 08/14/21 Range/Units 19:55 20:23 00:14 RBC (4.30-5.90) m/uL Hgb (13.0-17.5) gm/dL Hct (39.0-53.0) % Lymphocytes # (1.0-4.8) k/uL APTT 63.0 H (22.0-30.0) sec ABG HCO3 (21-25) mmol/L ABG Total CO2 (19-24) mmol/L Sodium (137-145) mmol/L Chloride (98-107) mmol/L BUN (9-20) mg/dL Creatinine (0.66-1.25) mg/dL Glucose (74-99) mg/dL POC Glucose (mg/dL) 384 H 337 H (75-99) mg/dL Hemoglobin A1c (0.0-6.0) % Procalcitonin (0.02-0.09) ng/mL 08/14/21 08/14/21 08/14/21 Range/Units 06:37 06:39 08:18 RBC 4.02 L (4.30-5.90) m/uL Hgb 12.0 L (13.0-17.5) gm/dL Hct 38.3 L (39.0-53.0) % Lymphocytes # 0.5 L (1.0-4.8) k/uL APTT (22.0-30.0) sec ABG HCO3 (21-25) mmol/L ABG Total CO2 (19-24) mmol/L Sodium (137-145) mmol/L Chloride (98-107) mmol/L BUN (9-20) mg/dL Creatinine (0.66-1.25) mg/dL Glucose (74-99) mg/dL POC Glucose (mg/dL) 350 H 341 H (75-99) mg/dL Hemoglobin A1c (0.0-6.0) % Procalcitonin (0.02-0.09) ng/mL 08/14/21 08/14/21 Range/Units 08:18 08:18 RBC (4.30-5.90) m/uL Hgb (13.0-17.5) gm/dL Hct (39.0-53.0) % Lymphocytes # (1.0-4.8) k/uL APTT 51.5 H (22.0-30.0) sec ABG HCO3 (21-25) mmol/L ABG Total CO2 (19-24) mmol/L Sodium 133 L (137-145) mmol/L Chloride 96 L (98-107) mmol/L BUN 45 H (9-20) mg/dL Creatinine 1.68 H (0.66-1.25) mg/dL Glucose 401 H (74-99) mg/dL POC Glucose (mg/dL) (75-99) mg/dL Hemoglobin A1c (0.0-6.0) % Procalcitonin (0.02-0.09) ng/mL Microbiology - Last 24 Hours (Table) 08/12/21 21:20 Blood Culture - Preliminary Blood No Growth after 24 hours
[2021-08-14] MEDS: ASPIRIN 81 MG PO SCH (09:26)
[2021-08-14] MEDS: hydroCHLOROthiazide 25 MG TAB PO SCH (09:26)
[2021-08-14] MEDS: GABAPENTIN 300 MG CAP PO SCH ×3 (09:26→20:59)
[2021-08-14] MEDS: AMIODARONE 200 MG TAB PO SCH ×2 (09:26→20:33)
[2021-08-14] MEDS: METOPROLOL SUCCINATE (ER) 50 MG TAB.ER.24H PO SCH (09:26)
[2021-08-14] MEDS: TAMSULOSIN 0.4 MG CAP.ER.24H PO SCH (09:30)
--- NOTE | 2021-08-14 10:38 | P.PN ---
Subjective Progress Note Date: 08/14/21 Patient has a history of sick sinus syndrome status post permanent pacemaker, permanent atrial fibrillation, hypertension dyslipidemia type 2 diabetes obstructive sleep apnea on CPAP presented to Hospital complaining of shortness of breath. patient had an episode of V. tach/V. fib, he became pulseless and received brief CPR. Today patient is seen resting comfortably sitting up in bed eating his break fast. Patient denies chest pain or shortness of breath. patient's echocardiogram shows a moderately reduced LV systolic function, with an EF of 25% and [id number] aortic stenosis. this is a new onset of nonischemic cardiomyopathy with known history of coronary artery disease. Patient will need to undergo heart catheterization to assess for ischemia. Patient will continue on heparin drip. Due to elevated creatinine today, will continue to gently hydrate patient and reassess tomorrow for possible heart catheterization. On physical exam patient still has mild bilateral lower extremity edema and bilateral wheezing. Patient has been converted to by mouth amiodarone and has not had any new episodes of V. tach or V. fib. He did have an episode of hypotension last night where his blood pressure remained 80s over 40s. Will discontinue his amlodipine. Objective - Vital Signs Vital signs: Vital Signs Temp 96.9 F L 08/14/21 04:00 Pulse 63 08/14/21 10:00 Resp 21 08/14/21 10:00 BP 129/60 08/14/21 10:00 Pulse Ox 95 08/14/21 10:00 Intake & Output 08/13/21 08/14/21 08/14/21 18:59 06:59 18:59 Intake Total 352.84 494.687 10 Output Total 1075 775 90 Balance -722.16 -280.313 -80 Weight 109.9 kg Intake: IV 160 10 0.9 110 10 cefTRIAXone 1 gm In 50 Sodium Chloride 0.9% 50 ml @ 100 mls/hr IVPB Q24H JERRY Rx#:[id number] Intake, IV Titration 52.84 84.687 Amount Heparin Sod,Pork in 0.45% 52.84 84.687 NaCl 25,000 unit In 0.45 % NaCl 1 250ml.bag @ 9.38 UNITS/KG/HR 9.999 mls/hr IV .Q24H JERRY Rx#: [id number] Oral 300 250 Output: Urine 1075 775 90 Other: Voiding Method Indwelling Catheter Indwelling Catheter - Exam PHYSICAL EXAM: VITAL SIGNS: Reviewed. GENERAL: Well-developed in no acute distress. HEENT: Head is normocephalic. Pupils are equal, round. Sclerae anicteric. Mucous membranes of the mouth are moist. NECK: Supple. No JVD or thyromegaly RESPIRATORY: Respirations even and unlabored. Lungs diminished and expiratory wheezes to auscultation bilaterally. CARDIO: Regular rate and rhythm. S1 and S2 heard. No murmur or gallops. EXTREMITIES: Normal range of motion. No clubbing or cyanosis. Peripheral pulses intact. mild bilateral lower extremity edema NEURO: Orientated to person, time, mood is appropriate - Labs CBC & Chem 7: 08/14/21 08:18 08/14/21 08:18 Labs: Abnormal Lab Results - Last 24 Hours (Table) 08/13/21 08/13/21 08/13/21 Range/Units 03:11 05:37 05:37 RBC (4.30-5.90) m/uL Hgb (13.0-17.5) gm/dL Hct (39.0-53.0) % Lymphocytes # (1.0-4.8) k/uL APTT (22.0-30.0) sec ABG HCO3 29 H (21-25) mmol/L ABG Total CO2 31 H (19-24) mmol/L Sodium (137-145) mmol/L Chloride (98-107) mmol/L BUN (9-20) mg/dL Creatinine (0.66-1.25) mg/dL Glucose (74-99) mg/dL POC Glucose (mg/dL) (75-99) mg/dL Hemoglobin A1c 8.5 H (0.0-6.0) % Procalcitonin 0.19 H (0.02-0.09) ng/mL 08/13/21 08/13/21 08/13/21 Range/Units 11:43 12:00 16:57 RBC (4.30-5.90) m/uL Hgb (13.0-17.5) gm/dL Hct (39.0-53.0) % Lymphocytes # (1.0-4.8) k/uL APTT 79.4 H (22.0-30.0) sec ABG HCO3 (21-25) mmol/L ABG Total CO2 (19-24) mmol/L Sodium (137-145) mmol/L Chloride (98-107) mmol/L BUN (9-20) mg/dL Creatinine (0.66-1.25) mg/dL Glucose (74-99) mg/dL POC Glucose (mg/dL) 220 H 285 H (75-99) mg/dL Hemoglobin A1c (0.0-6.0) % Procalcitonin (0.02-0.09) ng/mL 08/13/21 08/13/21 08/14/21 Range/Units 19:55 20:23 00:14 RBC (4.30-5.90) m/uL Hgb (13.0-17.5) gm/dL Hct (39.0-53.0) % Lymphocytes # (1.0-4.8) k/uL APTT 63.0 H (22.0-30.0) sec ABG HCO3 (21-25) mmol/L ABG Total CO2 (19-24) mmol/L Sodium (137-145) mmol/L Chloride (98-107) mmol/L BUN (9-20) mg/dL Creatinine (0.66-1.25) mg/dL Glucose (74-99) mg/dL POC Glucose (mg/dL) 384 H 337 H (75-99) mg/dL Hemoglobin A1c (0.0-6.0) % Procalcitonin (0.02-0.09) ng/mL 08/14/21 08/14/21 08/14/21 Range/Units 06:37 06:39 08:18 RBC 4.02 L (4.30-5.90) m/uL Hgb 12.0 L (13.0-17.5) gm/dL Hct 38.3 L (39.0-53.0) % Lymphocytes # 0.5 L (1.0-4.8) k/uL APTT (22.0-30.0) sec ABG HCO3 (21-25) mmol/L ABG Total CO2 (19-24) mmol/L Sodium (137-145) mmol/L Chloride (98-107) mmol/L BUN (9-20) mg/dL Creatinine (0.66-1.25) mg/dL Glucose (74-99) mg/dL POC Glucose (mg/dL) 350 H 341 H (75-99) mg/dL Hemoglobin A1c (0.0-6.0) % Procalcitonin (0.02-0.09) ng/mL 08/14/21 08/14/21 Range/Units 08:18 08:18 RBC (4.30-5.90) m/uL Hgb (13.0-17.5) gm/dL Hct (39.0-53.0) % Lymphocytes # (1.0-4.8) k/uL APTT 51.5 H (22.0-30.0) sec ABG HCO3 (21-25) mmol/L ABG Total CO2 (19-24) mmol/L Sodium 133 L (137-145) mmol/L Chloride 96 L (98-107) mmol/L BUN 45 H (9-20) mg/dL Creatinine 1.68 H (0.66-1.25) mg/dL Glucose 401 H (74-99) mg/dL POC Glucose (mg/dL) (75-99) mg/dL Hemoglobin A1c (0.0-6.0) % Procalcitonin (0.02-0.09) ng/mL Microbiology - Last 24 Hours (Table) 08/12/21 21:20 Blood Culture - Preliminary Blood No Growth after 24 hours Assessment and Plan Assessment: nonischemic cardiomyopathy with known history of coronary artery disease acute non-STEMI Ventricular tachycardia Permanent atrial fibrillation sick sinus syndrome status post permanent shortness of breath secondary to pneumonia Plan: discontinue amlodipine 5 mg daily Continue with IV heparin drip Continue to monitor blood pressure for hypotension Continue with IV antibiotics for pneumonia Continue with IV Lasix for diuresing Continue to gently hydrate and monitor kidney function Will continue to assess kidney function and schedule heart catheterization once kidney function has improved Continue with cardiac monitoring Further recommendations based on clinical course The above impression and plan of care have been discussed and directed by the signing physician. Patrizia Hilton, nurse practitioner, acting as scribe for signing physician.
--- NOTE | 2021-08-14 10:40 | XR ---
EXAMINATION TYPE: XR chest 1V portable DATE OF EXAM: 08/14/2021 COMPARISON: Chest x-ray 08/13/2021, CT 08/12/2021 HISTORY: Pulmonary edema TECHNIQUE: Single frontal view of the chest is obtained. FINDINGS: Patchy retrocardiac density is present, there is elevation of left hemidiaphragm, patchy d ensity also present at the right lung base. Calcification superimposed over the right hemidiaphragm l evel as on prior is within the abdomen posterior to the liver. Exam is expiratory. Cardiac mediastina l silhouette is stable. A generator is present in the left pectoral region, there is a lead in the ri ght ventricle. IMPRESSION: Correlate for basilar pneumonia versus atelectasis.
[2021-08-14 11:45] LABS: Glucose,Whole Blood 294 mg/dL (75-99)
--- NOTE | 2021-08-14 12:41 | P.PN ---
Subjective Progress Note Date: 08/14/21 This is a very pleasant 86-year-old gentleman with a known history of Hussein's Palsy, hypertension, hyperlipidemia, diabetes mellitus, diastolic congestive heart failure, chronic kidney disease stage III, atrial fibrillation anticoagulated with warfarin status post permanent pacemaker implantation. He also has a history of severe obstructive sleep apnea that includes central apneas. He is on BiPAP at home at 18/14. He has a simple as fullface mask. He sees Dr. Quiroga for the sleep apnea. He follows with Dr. Roth in our office for COPD. He has a FEV1 value 64% of predicted. He is maintained on Wixella and albuterol. For the past several days the patient has had complaints of increasing cough congestion and generalized weakness. He presented here to the emergency room yesterday for the same. While in the emergency department he suffered a brief V. tach/V. fib arrest with brief CPR initiated on amiodarone drip and heparin drip. Chest x-ray revealed evidence of interstitial edema and suspected congestive heart failure. No pleural effusions. No pneumothorax. There is noted cardiomegaly. Noted single wire pacemaker. He was placed on BiPAP and admitted to the intensive care unit. He is seen today in consultation. He is currently awake and alert in no acute distress. He co ntinues with a loose congested cough. He denies any chest pain or palpitations. He's currently in atrial fibrillation with a paced ventricular rate at 60. He was on BiPAP 14/5 and 50% throughout the night. Currently on 5 L of oxygen with O2 saturation at 100%. He did present with a T-max of 102. Currently afebrile. White count 11.6. Hemoglobin 13.0. Platelets 167. INR 1.8. Sodium 136. Potassium 3.7. Bicarb 25. BUN 34. Creatinine 1.58. Glucose 255. Troponin 0.10, 0.09, 0.09. ProBNP 5510. Urinalysis clean. [place] virus not detected. Influenza screen negative. Echocardiogram pending. He was initiated on DuoNeb inhalations, Symbicort, ceftriaxone and azithromycin. He is also on Lasix 40 mg IV every 12 hours. Pro-calcitonin pending. 08/14/2072, the patient is being seen for a follow-up. This morning, the patient is doing well. The patient has no specific complaints. Cough and chest congestion subsided since yesterday. The patient remains hemodynamically stable and the patient is having any chest pain. He is currently on 3 L of oxygen by nasal cannula and overnight the patient utilizes BiPAP at a pressure of 18/14 cm of water as the patient has severe HANNA. The patient currently is on a Lasix regimen 40 mg IV every 12 hours and overall fluid balance is -1.0 L over the past 24 hours. He remains on IV heparin. His amiodarone drip has been discontinued and the patient was patient oral amiodarone. Based on the most recent echo results that showed impairment of LV function, the patient is tentatively scheduled to undergo a cardiac catheterization tomorrow. Blood sugars are elevated and his Levemir dose will be also adjusted to improve the blood sugar control. No other complaints otherwise for now. The patient is having a paced cardiac rhythm and occasional PVCs are also noted. Cardiology is on the case. Objective - Vital Signs Vital signs: Vital Signs Temp 96.9 F L 08/14/21 04:00 Pulse 60 08/14/21 11:00 Resp 24 08/14/21 11:00 BP 136/70 08/14/21 11:00 Pulse Ox 98 08/14/21 11:00 Intake & Output 08/13/21 08/14/21 08/14/21 18:59 06:59 18:59 Intake Total 352.84 494.687 10 Output Total 1075 775 250 Balance -722.16 -280.313 -240 Weight 109.9 kg Intake: IV 160 10 0.9 110 10 cefTRIAXone 1 gm In 50 Sodium Chloride 0.9% 50 ml @ 100 mls/hr IVPB Q24H [facility] Rx#:[id number] Intake, IV Titration 52.84 84.687 Amount Heparin Sod,Pork in 0.45% 52.84 84.687 NaCl 25,000 unit In 0.45 % NaCl 1 250ml.bag @ 9.38 UNITS/KG/HR 9.999 mls/hr IV .Q24H J[facility]Y Rx#: [id number] Oral 300 250 Output: Urine 1075 775 250 Other: Voiding Method Indwelling Catheter Indwelling Catheter Indwelling Catheter - Exam GENERAL EXAM: Alert, very pleasant morbidly obese 86-year-old male patient, currently on 3 L nasal cannula, comfortable in no apparent distress. HEAD: Normocephalic. History of Hussein's palsy EYES: Normal reaction of pupils, equal size. NOSE: Clear with pink turbinates. THROAT: No erythema or exudates. NECK: No masses, no JVD. CHEST: No chest wall deformity. LUNGS: Equal air entry with bilateral scattered rhonchi, expiratory wheeze, crackles in the posterior bases CVS: S1 and S2 normal with no audible murmur, regular rhythm. ABDOMEN: No hepatosplenomegaly, normal bowel sounds, no guarding or rigidity. SPINE: No scoliosis or deformity SKIN: No rashes CENTRAL NERVOUS SYSTEM: No focal deficits, tone is normal in all 4 extremities. EXTREMITIES: There is trace peripheral edema. No clubbing, no cyanosis. Peripheral pulses are intact. - Labs CBC & Chem 7: 08/14/21 08:18 08/14/21 08:18 Labs: Abnormal Lab Results - Last 24 Hours (Table) 08/13/21 08/13/21 08/13/21 Range/Units 03:11 05:37 16:57 RBC (4.30-5.90) m/uL Hgb (13.0-17.5) gm/dL Hct (39.0-53.0) % Lymphocytes # (1.0-4.8) k/uL APTT (22.0-30.0) sec ABG HCO3 29 H (21-25) mmol/L ABG Total CO2 31 H (19-24) mmol/L Sodium (137-145) mmol/L Chloride (98-107) mmol/L BUN (9-20) mg/dL Creatinine (0.66-1.25) mg/dL Glucose (74-99) mg/dL POC Glucose (mg/dL) 285 H (75-99) mg/dL Procalcitonin 0.19 H (0.02-0.09) ng/mL 08/13/21 08/13/21 08/14/21 Range/Units 19:55 20:23 00:14 RBC (4.30-5.90) m/uL Hgb (13.0-17.5) gm/dL Hct (39.0-53.0) % Lymphocytes # (1.0-4.8) k/uL APTT 63.0 H (22.0-30.0) sec ABG HCO3 (21-25) mmol/L ABG Total CO2 (19-24) mmol/L Sodium (137-145) mmol/L Chloride (98-107) mmol/L BUN (9-20) mg/dL Creatinine (0.66-1.25) mg/dL Glucose (74-99) mg/dL POC Glucose (mg/dL) 384 H 337 H (75-99) mg/dL Procalcitonin (0.02-0.09) ng/mL 08/14/21 08/14/21 08/14/21 Range/Units 06:37 06:39 08:18 RBC 4.02 L (4.30-5.90) m/uL Hgb 12.0 L (13.0-17.5) gm/dL Hct 38.3 L (39.0-53.0) % Lymphocytes # 0.5 L (1.0-4.8) k/uL APTT (22.0-30.0) sec ABG HCO3 (21-25) mmol/L ABG Total CO2 (19-24) mmol/L Sodium (137-145) mmol/L Chloride (98-107) mmol/L BUN (9-20) mg/dL Creatinine (0.66-1.25) mg/dL Glucose (74-99) mg/dL POC Glucose (mg/dL) 350 H 341 H (75-99) mg/dL Procalcitonin (0.02-0.09) ng/mL 08/14/21 08/14/21 08/14/21 Range/Units 08:18 08:18 11:43 RBC (4.30-5.90) m/uL Hgb (13.0-17.5) gm/dL Hct (39.0-53.0) % Lymphocytes # (1.0-4.8) k/uL APTT 51.5 H (22.0-30.0) sec ABG HCO3 (21-25) mmol/L ABG Total CO2 (19-24) mmol/L Sodium 133 L (137-145) mmol/L Chloride 96 L (98-107) mmol/L BUN 45 H (9-20) mg/dL Creatinine 1.68 H (0.66-1.25) mg/dL Glucose 401 H (74-99) mg/dL POC Glucose (mg/dL) 294 H (75-99) mg/dL Procalcitonin (0.02-0.09) ng/mL Microbiology - Last 24 Hours (Table) 08/12/21 21:20 Blood Culture - Preliminary Blood No Growth after 24 hours Assessment and Plan Assessment: Acute hypoxic respiratory failure secondary to an acute exacerbation of diastoli c congestive heart failure and suspected underlying bronchitis/pneumonia, COPD exacerbation, clinically stable on 3 L of oxygen by nasal cannula Brief V. tach cardiac arrest in the emergency department requiring brief CPR with return of spontaneous circulation. The current cardiac rhythm is paced with occasional PVCs and the patient is off the amiodarone drip and the patient is currently on oral amiodarone. The patient remains on IV heparin. History of diastolic congestive heart failure with preserved left ventricular systolic function ejection fraction 50-55%, repeat echo cardiac exam showed presence of a significant impairment of the LV function and based on the new onset CHF, the patient will need a cardiac catheterization which is being planned over the next 24 hours. Atrial fibrillation, anticoagulated with warfarin in the outpatient setting, the the patient is currently on IV heparin Single chamber permanent pacemaker secondary to above Severe obstructive sleep apnea with noted central apneas on BiPAP / in the outpatient setting Chronic obstructive pulmonary disease with an FEV1 value 64% of predicted, maintained on Wixella and albuterol in the outpatient setting, currently on a combination of bronchodilators steroids. Morbid obesity History of Hussein's palsy Chronic kidney disease History of prostate cancer with previous radiation Hyperlipidemia Hypertension History of previous spine surgery Plan: Continue bronchodilators Continue steroids with IV Solu-Medrol The patient is less bronchospastic and wheezy compared to yesterday t Continue IV Lasix and the patient is a negative fluid balance Continue BiPAP overnight Oxygen. Was coming down to 3 L per minute nasal cannula Monitor the cardiac rhythm Cardiac catheterization tacho Continue to follow make further recommendations based on the patient's progress.
[2021-08-14] MEDS ORDERED: FUROSEMIDE 40 MG TAB PO SCH (16:00)
[2021-08-14 16:31] LABS: Glucose,Whole Blood 236 mg/dL (75-99)
--- NOTE | 2021-08-14 20:05 | P.PN ---
Subjective Progress Note Date: 08/14/21 (delayed charting seen at 0945) Patient is an 86-year-old gentleman with a history of A. fib on Coumadin status post permanent pacemaker, COPD, HANNA on CPAP, diabetes, hypertension, dyslipidemia, and congestive heart failure who presented to the ER with complaints of shortness of breath. In the ER he underwent an extensive evaluation. He was found to be febrile with a T-max of 102.5. Laboratory analysis was remarkable for troponin of 0.1, BNP 5510. Patient was started on IV Lasix and antibiotics for possible pneumonia. Cardiology was consulted who recommended heparin drip for non-ST segment elevated myocardial infarction. Patient underwent a V. fib arrest in the ER which responded to several c ompressions. He was started on amiodarone and metoprolol. He was admitted to the ICU. Pulmonary was consulted. He had an echo which showed an EF of 25-30%. Patient seen and examined at bedside. No chest pain, breathing is better, wants to go home. General: non toxic, no distress, appears at stated age Derm: warm, dry Head: atraumatic, normocephalic, symmetric Eyes: EOMI, no lid lag, anicteric sclera Mouth: no lip lesion, mucus membranes moist Cardiovascular: S1S2 reg, no murmur, positive posterior tibial pulse bilateral, Lungs: bs bilateral, + accessory muscle use Abdominal: soft, nontender to palpation, no guarding, no appreciable organomegaly Ext: no gross muscle atrophy, 1+ edema, no contractures Neuro: CN II-XI grossly intact, no focal neuro deficits Psych: Alert, oriented, appropriate affect Assessment/plan: Community Acquired Pneumonia - rocephin, completed zithromax - Pulm recs - COVID, Flu negative NSTEMI New systolic cardiomyopathy with acute exacerbation A fib arrest - cath in the AM - amio gtt - Lasix to PO - metoprolol DM2 with hyperglycemia - levemir increased - SSI - follow BS - A1C 8.5 Chronic: HTN HLD BPH HANNA- CPAP DVT prophylaxis: Heparin gtt Discussed with: judie Peña Anticipated discharge: in AM Anticipated discharge place: home A total of 35 minutes was spent on the care of this complex patient more than 50% of the time was spent in counseling and care coordination. Objective - Vital Signs Vital signs: Vital Signs Temp 96.9 F L 04/28/22 04:00 Pulse 59 L 08/14/21 19:00 Resp 19 08/14/21 19:00 BP 128/74 08/14/21 18:00 Pulse Ox 94 L 08/14/21 19:00 Intake & Output 08/14/21 08/14/21 08/15/21 06:59 18:59 06:59 Intake Total 494.687 210 Output Total 775 560 Balance -280.313 -350 Weight 109.9 kg Intake: IV 160 10 0.9 110 10 cefTRIAXone 1 gm In 50 Sodium Chloride 0.9% 50 ml @ 100 mls/hr IVPB Q24H [facility] Rx#:[id number] Intake, IV Titration 84.687 Amount Heparin Sod,Pork in 0.45% 84.687 NaCl 25,000 unit In 0.45 % NaCl 1 250ml.bag @ 9.38 UNITS/KG/HR 9.999 mls/hr IV .Q24H JERRY Rx#: [id number] Oral 250 200 Output: Urine 775 560 Other: Voiding Method Indwelling Catheter Indwelling Catheter - Labs CBC & Chem 7: 08/14/21 08:18 08/14/21 08:18 Labs: Abnormal Lab Results - Last 24 Hours (Table) 08/13/21 08/13/21 08/13/21 Range/Units 05:37 19:55 20:23 RBC (4.30-5.90) m/uL Hgb (13.0-17.5) gm/dL Hct (39.0-53.0) % Lymphocytes # (1.0-4.8) k/uL APTT 63.0 H (22.0-30.0) sec Sodium (137-145) mmol/L Chloride (98-107) mmol/L BUN (9-20) mg/dL Creatinine (0.66-1.25) mg/dL Glucose (74-99) mg/dL POC Glucose (mg/dL) 384 H (75-99) mg/dL Procalcitonin 0.19 H (0.02-0.09) ng/mL 08/14/21 08/14/21 08/14/21 Range/Units 00:14 06:37 06:39 RBC (4.30-5.90) m/uL Hgb (13.0-17.5) gm/dL Hct (39.0-53.0) % Lymphocytes # (1.0-4.8) k/uL APTT (22.0-30.0) sec Sodium (137-145) mmol/L Chloride (98-107) mmol/L BUN (9-20) mg/dL Creatinine (0.66-1.25) mg/dL Glucose (74-99) mg/dL POC Glucose (mg/dL) 337 H 350 H 341 H (75-99) mg/dL Procalcitonin (0.02-0.09) ng/mL 08/14/21 08/14/21 08/14/21 Range/Units 08:18 08:18 08:18 RBC 4.02 L (4.30-5.90) m/uL Hgb 12.0 L (13.0-17.5) gm/dL Hct 38.3 L (39.0-53.0) % Lymphocytes # 0.5 L (1.0-4.8) k/uL APTT 51.5 H (22.0-30.0) sec Sodium 133 L (137-145) mmol/L Chloride 96 L (98-107) mmol/L BUN 45 H (9-20) mg/dL Creatinine 1.68 H (0.66-1.25) mg/dL Glucose 401 H (74-99) mg/dL POC Glucose (mg/dL) (75-99) mg/dL Procalcitonin (0.02-0.09) ng/mL 08/14/21 08/14/21 Range/Units 11:43 16:30 RBC (4.30-5.90) m/uL Hgb (13.0-17.5) gm/dL Hct (39.0-53.0) % Lymphocytes # (1.0-4.8) k/uL APTT (22.0-30.0) sec Sodium (137-145) mmol/L Chloride (98-107) mmol/L BUN (9-20) mg/dL Creatinine (0.66-1.25) mg/dL Glucose (74-99) mg/dL POC Glucose (mg/dL) 294 H 236 H (75-99) mg/dL Procalcitonin (0.02-0.09) ng/mL Microbiology - Last 24 Hours (Table) 08/12/21 21:20 Blood Culture - Preliminary Blood No Growth after 24 hours
[2021-08-14 20:29] LABS: Glucose,Whole Blood 292 mg/dL (75-99)
[2021-08-14] MEDS: INSULIN DETEMIR (LEVEMIR) 100 UNIT/ML SYR SQ SCH (20:33)
[2021-08-14] MEDS ORDERED: INSULIN DETEMIR (LEVEMIR) 100 UNIT/ML SYR SQ SCH (21:00)
[2021-08-14] MEDS ORDERED: MELATONIN 5 MG TABLET PO ONE (23:18)
[2021-08-15 04:43] LABS: Basophils % (A) 0 %; Eosinophils % (A) 0 %; HCT 38.3 % (39.0-53.0); HGB 12.5 gm/dL (13.0-17.5); Lymphocytes # (A) 0.6 k/uL (1.0-4.8); Lymphocytes % (A) 6 %; MCH 29.5 pg (25.0-35.0); MCHC 32.7 g/dL (31.0-37.0); MCV 90.3 fL (80.0-100.0); Mean Platelet Volume 9.9; Monocytes # (A) 0.4 k/uL (0-1.0); Monocytes % (A) 4 %; Neutrophils # (A) 8.2 k/uL (1.3-7.7); Neutrophils % (A) 88 %; Platelet Count 189 k/uL (150-450); RBC 4.25 m/uL (4.30-5.90); WBC 9.4 k/uL (3.8-10.6)
[2021-08-15 05:08] LABS: Calcium 9.1 mg/dL (8.4-10.2); Potassium 3.1 mmol/L (3.5-5.1)
[2021-08-15] MEDS: POTASSIUM CHLORIDE 10 MEQ in WATER FOR INJECTION 1 100ML.BAG IVPB SCH ×4 (05:38→15:31)
[2021-08-15 06:02] LABS: Glucose,Whole Blood 143 mg/dL (75-99)
[2021-08-15 06:57] LABS: Glucose,Whole Blood 140 mg/dL (75-99)
[2021-08-15] MEDS: INSULIN ASPART (NovoLOG) 100 UNIT/ML VIAL SQ SCH ×10 (07:00→21:20)
[2021-08-15] MEDS: IPRATROPIUM-ALBUTEROL 3 ML NEB INHALATION SCH ×4 (08:02→20:33)
[2021-08-15] MEDS: SYMBICORT 80-4.5 MCG INHALER INHALATION SCH ×2 (08:02→20:33)
[2021-08-15 08:51] LABS: Glucose,Whole Blood 133 mg/dL (75-99)
[2021-08-15] MEDS: methylPREDNISolone SOD SUCCI 125 MG/2 ML VIAL IV SCH (09:50)
[2021-08-15] MEDS: ASPIRIN 81 MG PO SCH (09:51)
[2021-08-15] MEDS: METOPROLOL SUCCINATE (ER) 50 MG TAB.ER.24H PO SCH (09:52)
[2021-08-15] MEDS: FUROSEMIDE 40 MG TAB PO SCH (09:52)
[2021-08-15] MEDS: PANTOPRAZOLE 40 MG TABLET PO SCH (09:52)
[2021-08-15] MEDS: TAMSULOSIN 0.4 MG CAP.ER.24H PO SCH (09:52)
[2021-08-15] MEDS: GABAPENTIN 300 MG CAP PO SCH ×3 (09:52→21:19)
[2021-08-15] MEDS: AMIODARONE 200 MG TAB PO SCH ×2 (09:52→21:19)
[2021-08-15 11:23] LABS: Glucose,Whole Blood 239 mg/dL (75-99)
--- NOTE | 2021-08-15 12:53 | P.PN ---
Subjective Progress Note Date: 08/15/21 This is a very pleasant 86-year-old gentleman with a known history of Hussein's Palsy, hypertension, hyperlipidemia, diabetes mellitus, diastolic congestive heart failure, chronic kidney disease stage III, atrial fibrillation anticoagulated with warfarin status post permanent pacemaker implantation. He also has a history of severe obstructive sleep apnea that includes central apneas. He is on BiPAP at home at 18/14. He has a simple as fullface mask. He sees Dr. Quiroga for the sleep apnea. He follows with Dr. Roth in our office for COPD. He has a FEV1 value 64% of predicted. He is maintained on Wixella and albuterol. For the past several days the patient has had complaints of increasing cough congestion and generalized weakness. He presented here to the emergency room yesterday for the same. While in the emergency department he suffered a brief V. tach/V. fib arrest with brief CPR initiated on amiodarone drip and heparin drip. Chest x-ray revealed evidence of interstitial edema and suspected congestive heart failure. No pleural effusions. No pneumothorax. There is noted cardiomegaly. Noted single wire pacemaker. He was placed on BiPAP and admitted to the intensive care unit. He is seen today in consultation. He is currently awake and alert in no acute distress. He co ntinues with a loose congested cough. He denies any chest pain or palpitations. He's currently in atrial fibrillation with a paced ventricular rate at 60. He was on BiPAP 14/5 and 50% throughout the night. Currently on 5 L of oxygen with O2 saturation at 100%. He did present with a T-max of 102. Currently afebrile. White count 11.6. Hemoglobin 13.0. Platelets 167. INR 1.8. Sodium 136. Potassium 3.7. Bicarb 25. BUN 34. Creatinine 1.58. Glucose 255. Troponin 0.10, 0.09, 0.09. ProBNP 5510. Urinalysis clean. [place] virus not detected. Influenza screen negative. Echocardiogram pending. He was initiated on DuoNeb inhalations, Symbicort, ceftriaxone and azithromycin. He is also on Lasix 40 mg IV every 12 hours. Pro-calcitonin pending. 08/14/2072, the patient is being seen for a follow-up. This morning, the patient is doing well. The patient has no specific complaints. Cough and chest congestion subsided since yesterday. The patient remains hemodynamically stable and the patient is having any chest pain. He is currently on 3 L of oxygen by nasal cannula and overnight the patient utilizes BiPAP at a pressure of 18/14 cm of water as the patient has severe HANNA. The patient currently is on a Lasix regimen 40 mg IV every 12 hours and overall fluid balance is -1.0 L over the past 24 hours. He remains on IV heparin. His amiodarone drip has been discontinued and the patient was patient oral amiodarone. Based on the most recent echo results that showed impairment of LV function, the patient is tentatively scheduled to undergo a cardiac catheterization tomorrow. Blood sugars are elevated and his Levemir dose will be also adjusted to improve the blood sugar control. No other complaints otherwise for now. The patient is having a paced cardiac rhythm and occasional PVCs are also noted. Cardiology is on the case. 08/15/2021, patient is stable. The patient had a creatinine of 1.8 today and based on that the cardiac catheterization was canceled and postponed. Meanwhile, is doing well. No significant cough or congestion. He was receiving bronchodilators and steroids. He remains afebrile. He remains on 3 L of O2 nasal cannula. Utilizing his BiPAP overnight at a pressure of 80/40 cm of water. He remains on IV Lasix was stopped today and switch to oral Lasix 40 mg by mouth daily. Fluid balance is been negative. The patient started off IV heparin. Cardiac rhythm is sinus. No chest pain. No headaches. No altered mentation. On his blood work today the patient has a white cell count of 9.4 with a hemoglobin of 12.5 and a platelet count of 185, sodium level is at 1:30 with a potassium level of 3.1, bicarb is at 29. Calcium level is at 9.1. Objective - Vital Signs Vital signs: Vital Signs Temp 97.6 F 08/15/21 08:00 Pulse 60 08/15/21 11:59 Resp 18 08/15/21 11:59 BP 141/53 08/15/21 11:00 Pulse Ox 95 08/15/21 11:00 Intake & Output 08/14/21 08/15/21 08/15/21 18:59 06:59 18:59 Intake Total 210 370 200 Output Total 560 1950 270 Balance -350 -1580 -70 Weight 106.5 kg Intake: IV 10 370 200 0.9 10 220 100 Potassium Chloride 10 meq 100 100 In Water For Injection 1 100ml.bag @ 100 mls/hr IVPB Q1HR JERRY Rx#: [id number] cefTRIAXone 1 gm In 50 Sodium Chloride 0.9% 50 ml @ 100 mls/hr IVPB Q24H JERRY Rx#:[id number] Oral 200 Output: Urine 560 1950 270 Other: Voiding Method Indwelling Catheter Indwelling Catheter Indwelling Catheter - Exam GENERAL EXAM: Alert, very pleasant morbidly obese 86-year-old male patient, currently on 3 L nasal cannula, comfortable in no apparent distress. HEAD: Normocephalic. History of Hussein's palsy EYES: Normal reaction of pupils, equal size. NOSE: Clear with pink turbinates. THROAT: No erythema or exudates. NECK: No masses, no JVD. CHEST: No chest wall deformity. LUNGS: Equal air entry with bilateral scattered rhonchi, expiratory wheeze, crackles in the posterior bases CVS: S1 and S2 normal with no audible murmur, regular rhythm. ABDOMEN: No hepatosplenomegaly, normal bowel sounds, no guarding or rigidity. SPINE: No scoliosis or deformity SKIN: No rashes CENTRAL NERVOUS SYSTEM: No focal deficits, tone is normal in all 4 extremities. EXTREMITIES: There is trace peripheral edema. No clubbing, no cyanosis. Peripheral pulses are intact. - Labs CBC & Chem 7: 08/15/21 04:04 08/15/21 04:04 Labs: Abnormal Lab Results - Last 24 Hours (Table) 08/14/21 08/14/21 08/15/21 Range/Units 16:30 20:27 04:04 RBC 4.25 L (4.30-5.90) m/uL Hgb 12.5 L (13.0-17.5) gm/dL Hct 38.3 L (39.0-53.0) % Neutrophils # 8.2 H (1.3-7.7) k/uL Lymphocytes # 0.6 L (1.0-4.8) k/uL APTT (22.0-30.0) sec Potassium (3.5-5.1) mmol/L BUN (9-20) mg/dL Creatinine (0.66-1.25) mg/dL Glucose (74-99) mg/dL POC Glucose (mg/dL) 236 H 292 H (75-99) mg/dL 08/15/21 08/15/21 08/15/21 Range/Units 04:04 04:04 06:01 RBC (4.30-5.90) m/uL Hgb (13.0-17.5) gm/dL Hct (39.0-53.0) % Neutrophils # (1.3-7.7) k/uL Lymphocytes # (1.0-4.8) k/uL APTT 48.0 H (22.0-30.0) sec Potassium 3.1 L (3.5-5.1) mmol/L BUN 50 H (9-20) mg/dL Creatinine 1.80 H (0.66-1.25) mg/dL Glucose 127 H (74-99) mg/dL POC Glucose (mg/dL) 143 H (75-99) mg/dL 08/15/21 08/15/21 08/15/21 Range/Units 06:55 08:50 11:22 RBC (4.30-5.90) m/uL Hgb (13.0-17.5) gm/dL Hct (39.0-53.0) % Neutrophils # (1.3-7.7) k/uL Lymphocytes # (1.0-4.8) k/uL APTT (22.0-30.0) sec Potassium (3.5-5.1) mmol/L BUN (9-20) mg/dL Creatinine (0.66-1.25) mg/dL Glucose (74-99) mg/dL POC Glucose (mg/dL) 140 H 133 H 239 H (75-99) mg/dL Microbiology - Last 24 Hours (Table) 08/12/21 21:20 Blood Culture - Preliminary Blood No Growth after 48 hours Assessment and Plan Assessment: Acute hypoxic respiratory failure secondary to an acute exacerbation of diastolic congestive heart failure and suspected underlying bronchitis/pneumonia, COPD exacerbation, clinically stable on 3 L of oxygen by nasal cannula Brief V. tach cardiac arrest in the emergency department requiring brief CPR with return of spontaneous circulation. The current cardiac rhythm is paced with occasional PVCs and the patient is off the amiodarone drip and the patient is currently on oral amiodarone. The patient remains on IV heparin. History of diastolic congestive heart failure with preserved left ventricular systolic function ejection fraction 50-55%, repeat echo cardiac exam showed presence of a significant impairment of the LV function and based on the new onset CHF, the patient will need a cardiac catheterization which is being planned over the next 24 hours. Atrial fibrillation, anticoagulated with warfarin in the outpatient setting, the the patient is currently on IV heparin Single chamber permanent pacemaker secondary to above Severe obstructive sleep apnea with noted central apneas on BiPAP in the outpatient setting Chronic obstructive pulmonary disease with an FEV1 value 64% of predicted, maintained on Wixella and albuterol in the outpatient setting, currently on a combination of bronchodilators steroids. Morbid obesity History of Hussein's palsy Chronic kidney disease History of prostate cancer with previous radiation Hyperlipidemia Hypertension History of previous spine surgery Plan: Continue bronchodilators Stop IV Solu Medrol Put the patient prednisone burst taper Stop IV Lasix Put the patient on Lasix 40 mg by mouth daily Continue oral amiodarone Continue oral metoprolol 50 mg by mouth daily, Toprol-XL Continue IV Rocephin Continue BiPAP overnight Oxygen. Was coming down to 3 L per minute nasal cannula Monitor the cardiac rhythm Cardiac catheterization was postponed as the patient had a creatinine of 1.8 today Continue to follow make further recommendations based on the patient's progress. May transfer out of the intensive care unit today to a telemetry unit
--- NOTE | 2021-08-15 15:53 | P.PN ---
Subjective Progress Note Date: 08/15/21 (delayed charting seen at 0955) Principal diagnosis: shortness of breath Patient is an 86-year-old gentleman with a history of A. fib on Coumadin status post permanent pacemaker, COPD, HANNA on CPAP, diabetes, hypertension, dyslipidemia, and congestive heart failure who presented to the ER with complaints of shortness of breath. In the ER he underwent an extensive evaluation. He was found to be febrile with a T-max of 102.5. Laboratory analysis was remarkable for troponin of 0.1, BNP 5510. Patient was started on IV Lasix and antibiotics for possible pneumonia. Cardiology was consulted who recommended heparin drip for non-ST segment elevated myocardial infarction. Patient underwent a V. fib arrest in the ER which responded to several compressions. He was started on amiodarone and metoprolol. He was admitted to the ICU. Pulmonary was consulted. He had an echo which showed an EF of 25-30%. He has chronic kidney disease and cardio is determining appropriate timing of cardiac cath. Patient seen and examined at bedside. Having some increased coughing and shortness of breath with movement. He has no chest pain, no fatigue, wants to get better, eating and drinking well. General: non toxic, no distress, appears at stated age Derm: warm, dry Head: atraumatic, normocephalic, symmetric Eyes: EOMI, no lid lag, anicteric sclera Mouth: no lip lesion, mucus membranes moist Cardiovascular: S1S2 reg, no murmur, positive posterior tibial pulse bilateral, Lungs: bs bilateral, no accessory muscle use, no conversational dyspnea Abdominal: soft, nontender to palpation, no guarding, no appreciable organomegaly Ext: no gross muscle atrophy, 1+ edema, no contractures Neuro: CN II-XI grossly intact, no focal neuro deficits Psych: Alert, oriented, appropriate affect Assessment/plan: Community Acquired Pneumonia - rocephin, completed zithromax - Pulm recs - COVID, Flu negative NSTEMI New systolic cardiomyopathy with acute exacerbation, EF 25-30% V fib arrest - cardio recs: cath if cr stable - amio oral - Lasix oral - metoprolol - will need ACEI/ARB on discharge id Cr stable, and consider aldactone. DM2 with hyperglycemia Neuropathy - levemir increased - SSI - follow BS - A1C 8.5 - gabapentin CKD III - Cr appears at or near baseline - follow Cr - avoid nephrotoxic agents Chronic: HTN HLD BPH HANNA- CPAP DVT prophylaxis: Heparin gtt Discussed with: Patient angelomltio Anticipated discharge: in 3-[address]: home A total of 35 minutes was spent on the care of this complex patient more than 50% of the time was spent in counseling and care coordination. Active Medications Generic Name Dose Route Start Last Admin Trade Name Freq PRN Reason Stop Dose Admin Acetaminophen 650 mg 08/13/21 00:56 Acetaminophen Tab 325 Mg Tab PO Q6HR PRN Mild Pain or Fever > 100.5 Albuterol/Ipratropium 3 ml 08/13/21 04:22 Ipratropium-Albuterol 3 Ml Neb INHALATION RT-QID PRN Shortness Of Breath Or Wheezing Albuterol/Ipratropium 3 ml 08/13/21 08:00 08/15/21 11:47 Ipratropium-Albuterol 3 Ml Neb INHALATION 3 ml RT-QID JERRY Administration Amiodarone HCl 200 mg 08/13/21 11:15 08/15/21 09:52 Amiodarone 200 Mg Tab PO 200 mg BID JERRY Administration Aspirin 81 mg 08/13/21 09:00 08/15/21 09:51 Aspirin 81 Mg PO 81 mg DAILY JERRY Administration Atorvastatin Calcium 80 mg 08/14/21 21:00 08/14/21 20:33 Atorvastatin 80 Mg Tab PO 80 mg HS JERRY Administration Budesonide/Formoterol Fumarate 2 puff 08/13/21 08:00 08/15/21 08:02 Symbicort 80-4.5 Mcg Inhaler INHALATION 2 puff RT-BID JERRY Administration Furosemide 40 mg 08/15/21 09:00 08/15/21 09:52 Furosemide 40 Mg Tab PO 40 mg DAILY JERRY Administration Gabapentin 300 mg 08/13/21 09:00 08/15/21 15:31 Gabapentin 300 Mg Cap PO 300 mg TID JERRY Administration Heparin Sodium (Porcine) 0 unit 08/12/21 23:28 Heparin Sodium 1,000 Un/Ml (10ml Vl) IV PER PROTOCOL PRN Low PTT Protocol Heparin Sodium/Sodium Chloride 250 mls @ 9.999 mls/hr 08/12/21 23:30 08/14/21 04:12 25,000 unit/ Sodium Chloride IV 5.38 units/kg/hr .Q24H JERRY 5.735 mls/hr Administration Protocol 9.38 UNITS/KG/HR Ceftriaxone Sodium 1 gm/ 50 mls @ 100 mls/hr 08/14/21 04:00 08/15/21 04:02 Sodium Chloride IVPB 100 mls/hr Q24H JERRY Administration Protocol Insulin Aspart 0 unit 08/13/21 07:30 08/15/21 12:00 Insulin Aspart (Novolog) 100 Unit/Ml Vial SQ 8 unit ACHS JERRY Administration Protocol Insulin Aspart 20 unit 08/14/21 08:45 08/15/21 12:00 Insulin Aspart (Novolog) 100 Unit/Ml Vial SQ 20 unit ACHS [facility] Administration Protocol Insulin Detemir 40 unit 08/14/21 21:00 08/14/21 20:33 Insulin Detemir (Levemir) 100 Unit/Ml Syr SQ 40 unit HS JERRY Administration Metoprolol Succinate 50 mg 08/13/21 09:00 08/15/21 09:52 Metoprolol Succinate (Er) 50 Mg Tab.Er.24h PO 50 mg DAILY [facility] Administration Miscellaneous Information 1 each 08/13/21 06:38 Potassium Replacement Protocol 1 Each Misc MISCELLANE DAILY PRN Per Protocol Protocol Naloxone HCl 0.2 mg 08/13/21 00:56 Naloxone 0.4 Mg/Ml 1 Ml Vial IV Q2M PRN Opioid Reversal Pantoprazole Sodium 40 mg 08/13/21 07:30 08/15/21 09:52 Pantoprazole 40 Mg Tablet PO 40 mg AC-[id number] JERRY Administration Prednisone 40 mg 08/16/21 09:00 Prednisone 20 Mg Tab PO DAILY [facility] Tamsulosin HCl 0.4 mg 08/13/21 09:00 08/15/21 09:52 Tamsulosin 0.4 Mg Cap.Er.24h PO 0.4 mg DAILY JERRY Administration Objective - Vital Signs Vital signs: Vital Signs Temp 97.8 F 08/15/21 12:20 Pulse 60 08/15/21 12:20 Resp 18 08/15/21 12:20 BP 135/70 08/15/21 12:20 Pulse Ox 97 08/15/21 12:20 Intake & Output 08/14/21 08/15/21 08/15/21 18:59 06:59 18:59 Intake Total 210 370 200 Output Total 560 1950 270 Balance -350 -1580 -70 Weight 106.5 kg Intake: IV 10 370 200 0.9 10 220 100 Potassium Chloride 10 meq 100 100 In Water For Injection 1 100ml.bag @ 100 mls/hr IVPB Q1HR JERRY Rx#: [id number] cefTRIAXone 1 gm In 50 Sodium Chloride 0.9% 50 ml @ 100 mls/hr IVPB Q24H JERRY Rx#:[id number] Oral 200 Output: Urine 560 1950 270 Other: Voiding Method Indwelling Catheter Indwelling Catheter Indwelling Catheter - Labs CBC & Chem 7: 08/15/21 04:04 08/15/21 04:04 Labs: Abnormal Lab Results - Last 24 Hours (Table) 08/14/21 08/14/21 08/15/21 Range/Units 16:30 20:27 04:04 RBC 4.25 L (4.30-5.90) m/uL Hgb 12.5 L (13.0-17.5) gm/dL Hct 38.3 L (39.0-53.0) % Neutrophils # 8.2 H (1.3-7.7) k/uL Lymphocytes # 0.6 L (1.0-4.8) k/uL APTT (22.0-30.0) sec Potassium (3.5-5.1) mmol/L BUN (9-20) mg/dL Creatinine (0.66-1.25) mg/dL Glucose (74-99) mg/dL POC Glucose (mg/dL) 236 H 292 H (75-99) mg/dL 08/15/21 08/15/21 08/15/21 Range/Units 04:04 04:04 06:01 RBC (4.30-5.90) m/uL Hgb (13.0-17.5) gm/dL Hct (39.0-53.0) % Neutrophils # (1.3-7.7) k/uL Lymphocytes # (1.0-4.8) k/uL APTT 48.0 H (22.0-30.0) sec Potassium 3.1 L (3.5-5.1) mmol/L BUN 50 H (9-20) mg/dL Creatinine 1.80 H (0.66-1.25) mg/dL Glucose 127 H (74-99) mg/dL POC Glucose (mg/dL) 143 H (75-99) mg/dL 08/15/21 08/15/21 08/15/21 Range/Units 06:55 08:50 11:22 RBC (4.30-5.90) m/uL Hgb (13.0-17.5) gm/dL Hct (39.0-53.0) % Neutrophils # (1.3-7.7) k/uL Lymphocytes # (1.0-4.8) k/uL APTT (22.0-30.0) sec Potassium (3.5-5.1) mmol/L BUN (9-20) mg/dL Creatinine (0.66-1.25) mg/dL Glucose (74-99) mg/dL POC Glucose (mg/dL) 140 H 133 H 239 H (75-99) mg/dL Microbiology - Last 24 Hours (Table) 08/12/21 21:20 Blood Culture - Preliminary Blood No Growth after 48 hours
[2021-08-15 16:40] LABS: Glucose,Whole Blood 209 mg/dL (75-99)
[2021-08-15 20:12] LABS: Glucose,Whole Blood 358 mg/dL (75-99)
[2021-08-15] MEDS ORDERED: MELATONIN 3 MG TABLET PO ONE (21:12)
[2021-08-15] MEDS: ATORVASTATIN 80 MG TAB PO SCH (21:19)
[2021-08-15] MEDS: INSULIN DETEMIR (LEVEMIR) 100 UNIT/ML SYR SQ SCH (21:19)
[2021-08-15] MEDS: amLODIPine 5 MG TAB PO SCH (21:28)
[2021-08-15] MEDS: FUROSEMIDE 10 MG/ML 4 ML VIAL IV SCH (21:28)
[2021-08-15 23:07] LABS: Glucose,Whole Blood 419 mg/dL (75-99)
[2021-08-15] MEDS ORDERED: INSULIN ASPART (NovoLOG) 100 UNIT/ML VIAL SQ ONE (23:48)
[2021-08-16 02:03] LABS: Glucose,Whole Blood 298 mg/dL (75-99)
[2021-08-16] MEDS: HEPARIN SOD,PORK IN 0.45% NACL 25,000 UNIT in 0.45% NACL 1 250ML.BAG IV SCH ×2 (03:23→23:31)
[2021-08-16 06:56] LABS: Glucose,Whole Blood 200 mg/dL (75-99)
[2021-08-16] MEDS: INSULIN ASPART (NovoLOG) 100 UNIT/ML VIAL SQ SCH ×8 (06:56→20:30)
[2021-08-16] MEDS: PANTOPRAZOLE 40 MG TABLET PO SCH (06:56)
[2021-08-16] MEDS: IPRATROPIUM-ALBUTEROL 3 ML NEB INHALATION SCH ×4 (07:19→19:43)
[2021-08-16] MEDS: SYMBICORT 80-4.5 MCG INHALER INHALATION SCH ×2 (07:19→19:43)
[2021-08-16 08:00] LABS: HCT 38.9 % (39.0-53.0); HGB 12.3 gm/dL (13.0-17.5); MCH 28.8 pg (25.0-35.0); MCHC 31.7 g/dL (31.0-37.0); MCV 90.8 fL (80.0-100.0); Mean Platelet Volume 9.8; Platelet Count 214 k/uL (150-450); RBC 4.28 m/uL (4.30-5.90); WBC 11.2 k/uL (3.8-10.6)
[2021-08-16] MEDS: FUROSEMIDE 40 MG TAB PO SCH (08:51)
[2021-08-16] MEDS: METOPROLOL SUCCINATE (ER) 50 MG TAB.ER.24H PO SCH (08:51)
[2021-08-16] MEDS: ASPIRIN 81 MG PO SCH (08:51)
[2021-08-16] MEDS: GABAPENTIN 300 MG CAP PO SCH ×3 (08:51→20:29)
[2021-08-16] MEDS: AMIODARONE 200 MG TAB PO SCH ×2 (08:51→20:29)
[2021-08-16] MEDS: TAMSULOSIN 0.4 MG CAP.ER.24H PO SCH (08:51)
[2021-08-16] MEDS: predniSONE 20 MG TAB PO SCH (08:52)
[2021-08-16 08:54] LABS: Calcium 8.9 mg/dL (8.4-10.2); Magnesium 2.2 mg/dL (1.6-2.3); Potassium 3.7 mmol/L (3.5-5.1)
--- NOTE | 2021-08-16 11:54 | P.PN ---
Subjective Progress Note Date: 08/16/21 This is a very pleasant 86-year-old gentleman with a known history of Hussein's Palsy, hypertension, hyperlipidemia, diabetes mellitus, diastolic congestive heart failure, chronic kidney disease stage III, atrial fibrillation anticoagulated with warfarin status post permanent pacemaker implantation. He also has a history of severe obstructive sleep apnea that includes central apneas. He is on BiPAP at home at 18/14. He has a simple as fullface mask. He sees Dr. Quiroga for the sleep apnea. He follows with Dr. Roth in our office for COPD. He has a FEV1 value 64% of predicted. He is maintained on Wixella and albuterol. For the past several days the patient has had complaints of increasing cough congestion and generalized weakness. He presented here to the emergency room yesterday for the same. While in the emergency department he suffered a brief V. tach/V. fib arrest with brief CPR initiated on amiodarone drip and heparin drip. Chest x-ray revealed evidence of interstitial edema and suspected congestive heart failure. No pleural effusions. No pneumothorax. There is noted cardiomegaly. Noted single wire pacemaker. He was placed on BiPAP and admitted to the intensive care unit. He is seen today in consultation. He is currently awake and alert in no acute distress. He co ntinues with a loose congested cough. He denies any chest pain or palpitations. He's currently in atrial fibrillation with a paced ventricular rate at 60. He was on BiPAP 14/5 and 50% throughout the night. Currently on 5 L of oxygen with O2 saturation at 100%. He did present with a T-max of 102. Currently afebrile. White count 11.6. Hemoglobin 13.0. Platelets 167. INR 1.8. Sodium 136. Potassium 3.7. Bicarb 25. BUN 34. Creatinine 1.58. Glucose 255. Troponin 0.10, 0.09, 0.09. ProBNP 5510. Urinalysis clean. [place] virus not detected. Influenza screen negative. Echocardiogram pending. He was initiated on DuoNeb inhalations, Symbicort, ceftriaxone and azithromycin. He is also on Lasix 40 mg IV every 12 hours. Pro-calcitonin pending. 08/14/2072, the patient is being seen for a follow-up. This morning, the patient is doing well. The patient has no specific complaints. Cough and chest congestion subsided since yesterday. The patient remains hemodynamically stable and the patient is having any chest pain. He is currently on 3 L of oxygen by nasal cannula and overnight the patient utilizes BiPAP at a pressure of 18/14 cm of water as the patient has severe HANNA. The patient currently is on a Lasix regimen 40 mg IV every 12 hours and overall fluid balance is -1.0 L over the past 24 hours. He remains on IV heparin. His amiodarone drip has been discontinued and the patient was patient oral amiodarone. Based on the most recent echo results that showed impairment of LV function, the patient is tentatively scheduled to undergo a cardiac catheterization tomorrow. Blood sugars are elevated and his Levemir dose will be also adjusted to improve the blood sugar control. No other complaints otherwise for now. The patient is having a paced cardiac rhythm and occasional PVCs are also noted. Cardiology is on the case. 08/15/2021, patient is stable. The patient had a creatinine of 1.8 today and based on that the cardiac catheterization was canceled and postponed. Meanwhile, is doing well. No significant cough or congestion. He was receiving bronchodilators and steroids. He remains afebrile. He remains on 3 L of O2 nasal cannula. Utilizing his BiPAP overnight at a pressure of 80/40 cm of water. He remains on IV Lasix was stopped today and switch to oral Lasix 40 mg by mouth daily. Fluid balance is been negative. The patient started off IV heparin. Cardiac rhythm is sinus. No chest pain. No headaches. No altered mentation. On his blood work today the patient has a white cell count of 9.4 with a hemoglobin of 12.5 and a platelet count of 185, sodium level is at 1:30 with a potassium level of 3.1, bicarb is at 29. Calcium level is at 9.1. 08/16/2021, the patient is new complaints. The patient got transferred out of the intensive care unit. The plan is to do a cardiac catheterization at a later stage in this patient, pending stability of his renal function. Creatinine today stable. He has no specific complaints. No chest pain. No cough sputum production chest answer wheezing. He is afebrile. He remains on DuoNeb neb last treatment [id number], he is on empiric antibiotic coverage with IV Rocephin. He remains on IV heparin as an anticoagulant. This per cardiology recommendation. The patient is also on Lasix this was switched to oral Lasix 40 mg by mouth once a day. Meanwhile, the blood work from today shows a BUN of 50 with a creatinine of 1.7 and the patient a white cell count of 11.2 with a hem oglobin of 12.3. Note that his creatinine has remained stable for today. Blood sugars at 226, calcium is at 8.9 with a magnesium of 2.2. Objective - Vital Signs Vital signs: Vital Signs Temp 98.0 F 08/16/21 04:00 Pulse 60 08/16/21 11:44 Resp 18 08/16/21 04:00 BP 147/70 08/16/21 04:00 Pulse Ox 98 08/16/21 04:00 Intake & Output 08/15/21 08/16/21 08/16/21 18:59 06:59 18:59 Intake Total 200 260 600 Output Total 270 Balance -70 260 600 Intake: IV 200 10 0.9 100 Invasive Line 2 10 Potassium Chloride 10 meq 100 In Water For Injection 1 100ml.bag @ 100 mls/hr IVPB Q1HR JERRY Rx#: [id number] Intake, IV Titration 250 Amount Heparin Sod,Pork in 0.45% 250 NaCl 25,000 unit In 0.45 % NaCl 1 250ml.bag @ 9.38 UNITS/KG/HR 9.999 mls/hr IV .Q24H JERRY Rx#: [id number] Oral 600 Output: Urine 270 Other: Voiding Method Indwelling Catheter Toilet # Voids 1 1 - Exam GENERAL EXAM: Alert, very pleasant morbidly obese 86-year-old male patient, currently on 3 L nasal cannula, comfortable in no apparent distress. HEAD: Normocephalic. History of Hussein's palsy EYES: Normal reaction of pupils, equal size. NOSE: Clear with pink turbinates. THROAT: No erythema or exudates. NECK: No masses, no JVD. CHEST: No chest wall deformity. LUNGS: Equal air entry with bilateral scattered rhonchi, expiratory wheeze, crackles in the posterior bases CVS: S1 and S2 normal with no audible murmur, regular rhythm. ABDOMEN: No hepatosplenomegaly, normal bowel sounds, no guarding or rigidity. SPINE: No scoliosis or deformity SKIN: No rashes CENTRAL NERVOUS SYSTEM: No focal deficits, tone is normal in all 4 extremities. EXTREMITIES: There is trace peripheral edema. No clubbing, no cyanosis. Peripheral pulses are intact. - Labs CBC & Chem 7: 08/16/21 07:30 08/16/21 07:30 Labs: Abnormal Lab Results - Last 24 Hours (Table) 08/15/21 08/15/21 08/15/21 Range/Units 16:39 20:10 23:02 WBC (3.8-10.6) k/uL RBC (4.30-5.90) m/uL Hgb (13.0-17.5) gm/dL Hct (39.0-53.0) % APTT (22.0-30.0) sec BUN (9-20) mg/dL Creatinine (0.66-1.25) mg/dL Glucose (74-99) mg/dL POC Glucose (mg/dL) 209 H 358 H 419 H (75-99) mg/dL 08/16/21 08/16/21 08/16/21 Range/Units 02:01 06:54 07:30 WBC 11.2 H (3.8-10.6) k/uL RBC 4.28 L (4.30-5.90) m/uL Hgb 12.3 L (13.0-17.5) gm/dL Hct 38.9 L (39.0-53.0) % APTT (22.0-30.0) sec BUN (9-20) mg/dL Creatinine (0.66-1.25) mg/dL Glucose (74-99) mg/dL POC Glucose (mg/dL) 298 H 200 H (75-99) mg/dL 08/16/21 08/16/21 Range/Units 07:30 08:33 WBC (3.8-10.6) k/uL RBC (4.30-5.90) m/uL Hgb (13.0-17.5) gm/dL Hct (39.0-53.0) % APTT 38.7 H (22.0-30.0) sec BUN 50 H (9-20) mg/dL Creatinine 1.77 H (0.66-1.25) mg/dL Glucose 226 H (74-99) mg/dL POC Glucose (mg/dL) (75-99) mg/dL Microbiology - Last 24 Hours (Table) 08/12/21 21:20 Blood Culture - Preliminary Blood No Growth after 72 hours Assessment and Plan Assessment: Acute hypoxic respiratory failure secondary to an acute exacerbation of diastolic congestive heart failure and suspected underlying bronchitis/pneu monia, COPD exacerbation, clinically stable on 3 L of oxygen by nasal cannula, clinically stable and the patient can be weaned down to room air oxygen. Brief V. tach cardiac arrest in the emergency department requiring brief CPR with return of spontaneous circulation. The current cardiac rhythm is paced with occasional PVCs and the patient is off the amiodarone drip and the patient is currently on oral amiodarone. The patient remains on IV heparin. Pending cardiac catheterization History of diastolic congestive heart failure with preserved left ventricular systolic function ejection fraction 50-55%, repeat echo cardiac exam showed presence of a significant impairment of the LV function and based on the new onset CHF, the patient will need a cardiac catheterization which is being plan raquel over the next 24 hours. The patient is awaiting his cardiac catheterization Atrial fibrillation, anticoagulated with warfarin in the outpatient setting, the the patient is currently on IV heparin Single chamber permanent pacemaker secondary to above Severe obstructive sleep apnea with noted central apneas on BiPAP in the outpatient setting Chronic obstructive pulmonary disease with an FEV1 value 64% of predicted, maintained on Wixella and albuterol in the outpatient setting, currently on a combination of bronchodilators steroids. Morbid obesity History of Hussein's palsy Chronic kidney disease History of prostate cancer with previous radiation Hyperlipidemia Hypertension History of previous spine surgery Plan: Continue bronchodilators Continue prednisone burst taper Continue Lasix 40 mg by mouth daily Continue oral amiodarone Continue oral metoprolol 50 mg by mouth daily, Toprol-XL Continue IV Rocephin Continue BiPAP overnight Monitor the cardiac rhythm Cardiac catheterization was postponed as the patient had a creatinine of 1.7 today Continue to follow make further recommendations based on the patient's progress.
[2021-08-16 12:09] LABS: Glucose,Whole Blood 326 mg/dL (75-99)
--- NOTE | 2021-08-16 12:28 | P.PN ---
Subjective Progress Note Date: 08/16/21 Patient has a history of CAD sick sinus syndrome status post permanent pacemaker, permanent atrial fibrillation, hypertension dyslipidemia type 2 diabetes, chronic kidney disease obstructive sleep apnea on CPAP presented to Hospital complaining of shortness of breath. patient had an episode of V. tach/V. fib, he became pulseless and received brief CPR. Today patient is seen resting comfortably in bed on room air. Patient denies chest pain or shortness of breath. Patient continues on amiodarone and in sinus rhythm. Patient's creatinine continues to improve, today at 1.77 and BUN is 50. This is close to the patient's baseline creatinine. Will continue with IV heparin. Possible heart cath on Wednesday, will continue to monitor kidney function for improvement. Objective - Vital Signs Vital signs: Vital Signs Temp 98.0 F 08/16/21 04:00 Pulse 64 08/16/21 11:57 Resp 16 08/16/21 11:40 BP 128/62 08/16/21 11:40 Pulse Ox 98 08/16/21 11:40 Intake & Output 08/15/21 08/16/21 08/16/21 18:59 06:59 18:59 Intake Total 200 260 600 Output Total 270 Balance -70 260 600 Intake: IV 200 10 0.9 100 Invasive Line 2 10 Potassium Chloride 10 meq 100 In Water For Injection 1 100ml.bag @ 100 mls/hr IVPB Q1HR JERRY Rx#: [id number] Intake, IV Titration 250 Amount Heparin Sod,Pork in 0.45% 250 NaCl 25,000 unit In 0.45 % NaCl 1 250ml.bag @ 9.38 UNITS/KG/HR 9.999 mls/hr IV .Q24H JERRY Rx#: [id number] Oral 600 Output: Urine 270 Other: Voiding Method Indwelling Catheter Toilet Toilet # Voids 1 1 - Exam PHYSICAL EXAM: VITAL SIGNS: Reviewed. GENERAL: Well-developed in no acute distress. HEENT: Head is normocephalic. Pupils are equal, round. Sclerae anicteric. Mucous membranes of the mouth are moist. NECK: Supple. No JVD or thyromegaly RESPIRATORY: Respirations even and unlabored. Lungs diminished and expiratory wheezes to auscultation bilaterally. CARDIO: Regular rate and rhythm. S1 and S2 heard. No murmur or gallops. EXTREMITIES: Normal range of motion. No clubbing or cyanosis. Peripheral pulses intact. mild bilateral lower extremity edema NEURO: Orientated to person, time, mood is appropriate - Labs CBC & Chem 7: 08/16/21 07:30 08/16/21 07:30 Labs: Abnormal Lab Results - Last 24 Hours (Table) 08/15/21 08/15/21 08/15/21 Range/Units 16:39 20:10 23:02 WBC (3.8-10.6) k/uL RBC (4.30-5.90) m/uL Hgb (13.0-17.5) gm/dL Hct (39.0-53.0) % APTT (22.0-30.0) sec BUN (9-20) mg/dL Creatinine (0.66-1.25) mg/dL Glucose (74-99) mg/dL POC Glucose (mg/dL) 209 H 358 H 419 H (75-99) mg/dL 08/16/21 08/16/21 08/16/21 Range/Units 02:01 06:54 07:30 WBC 11.2 H (3.8-10.6) k/uL RBC 4.28 L (4.30-5.90) m/uL Hgb 12.3 L (13.0-17.5) gm/dL Hct 38.9 L (39.0-53.0) % APTT (22.0-30.0) sec BUN (9-20) mg/dL Creatinine (0.66-1.25) mg/dL Glucose (74-99) mg/dL POC Glucose (mg/dL) 298 H 200 H (75-99) mg/dL 08/16/21 08/16/21 08/16/21 Range/Units 07:30 08:33 12:02 WBC (3.8-10.6) k/uL RBC (4.30-5.90) m/uL Hgb (13.0-17.5) gm/dL Hct (39.0-53.0) % APTT 38.7 H (22.0-30.0) sec BUN 50 H (9-20) mg/dL Creatinine 1.77 H (0.66-1.25) mg/dL Glucose 226 H (74-99) mg/dL POC Glucose (mg/dL) 326 H (75-99) mg/dL Microbiology - Last 24 Hours (Table) 08/12/21 21:20 Blood Culture - Preliminary Blood No Growth after 72 hours Assessment and Plan Assessment: nonischemic cardiomyopathy with known history of coronary artery disease acute non-STEMI Ventricular tachycardia Permanent atrial fibrillation sick sinus syndrome status post permanent shortness of breath secondary to pneumonia Acute on chronic kidney disease Plan: Continue with IV heparin drip Continue to monitor blood pressure for hypotension Continue with IV antibiotics for pneumonia Continue with PO Lasix for diuresing Continue to gently hydrate and monitor kidney function Will continue to assess kidney function and possible heart catheterization once kidney function has improved Continue with cardiac monitoring Further recommendations based on clinical course The above impression and plan of care have been discussed and directed by the signing physician. Patrizia Hilton, nurse practitioner, acting as scribe for signing physician.
[2021-08-16] MEDS: guaiFENesin 600 MG TABLET.ER PO SCH ×2 (12:43→20:29)
[2021-08-16] MEDS: polyethylene glycoL 3350 17 GM POWD.PACK PO SCH (12:43)
--- NOTE | 2021-08-16 15:12 | P.PN ---
Subjective Progress Note Date: 08/16/21 (delayed charting seen at 1030) Principal diagnosis: shortness of breath Patient is an 86-year-old gentleman with a history of A. fib on Coumadin status post permanent pacemaker, COPD, HANNA on CPAP, diabetes, hypertension, dyslipidemia, and congestive heart failure who presented to the ER with complaints of shortness of breath. In the ER he underwent an extensive evaluation. He was found to be febrile with a T-max of 102.5. Laboratory analysis was remarkable for troponin of 0.1, BNP 5510. Patient was started on IV Lasix and antibiotics for possible pneumonia. Cardiology was consulted who recommended heparin drip for non-ST segment elevated myocardial infarction. Patient underwent a V. fib arrest in the ER which responded to several compressions. He was started on amiodarone and metoprolol. He was admitted to the ICU. Pulmonary was consulted. He had an echo which showed an EF of 25-30%. He has chronic kidney disease and cardio is determining appropriate timing of cardiac cath. Patient seen and examined at bedside. Doing better today. He needs to have some shortness of breath which is getting better. Cough is getting better. Complains of not being able to get his sputum up easily and constipation. General: non toxic, no distress, appears at stated age Derm: warm, dry Head: atraumatic, normocephalic, symmetric Eyes: EOMI, no lid lag, anicteric sclera Mouth: no lip lesion, mucus membranes moist Cardiovascular: S1S2 reg, no murmur, positive posterior tibial pulse bilateral, Lungs: Rhonchi bilateral bases, no accessory muscle use, no conversational dyspnea Abdominal: soft, nontender to palpation, no guarding, no appreciable organomegaly Ext: no gross muscle atrophy, 1+ edema, no contractures Neuro: CN II-XI grossly intact, no focal neuro deficits Psych: Alert, oriented, appropriate affect Assessment/plan: Community Acquired Pneumonia - rocephin, completed zithromax - Pulm recs - COVID, Flu negative -Add Mucinex Constipation -Bowel regiment NSTEMI New systolic cardiomyopathy with acute exacerbation, EF 25-30% V fib arrest - cardio recs: cath if cr stable: consult nephro for clearance for cath - amio oral , heparin gtt - Lasix oral - metoprolol - will need ACEI/ARB on discharge if Cr stable, and consider aldactone. DM2 with hyperglycemia Neuropathy - levemir - SSI - follow BS - A1C 8.5 - gabapentin CKD III - Cr appears at or near baseline - follow Cr - avoid nephrotoxic agents Chronic: HTN HLD BPH HANNA- CPAP DVT prophylaxis: Heparin gtt Discussed with: Patient judie Anticipated discharge: in 3-[address]: home A total of 35 minutes was spent on the care of this complex patient more than 50% of the time was spent in counseling and care coordination. Active Medications Generic Name Dose Route Start Last Admin Trade Name Freq PRN Reason Stop Dose Admin Acetaminophen 650 mg 08/13/21 00:56 Acetaminophen Tab 325 Mg Tab PO Q6HR PRN Mild Pain or Fever > 100.5 Albuterol/Ipratropium 3 ml 08/13/21 04:22 Ipratropium-Albuterol 3 Ml Neb INHALATION RT-QID PRN Shortness Of Breath Or Wheezing Albuterol/Ipratropium 3 ml 08/13/21 08:00 08/15/21 11:47 Ipratropium-Albuterol 3 Ml Neb INHALATION 3 ml RT-QID JERRY Administration Amiodarone HCl 200 mg 08/13/21 11:15 08/15/21 09:52 Amiodarone 200 Mg Tab PO 200 mg BID JERRY Administration Aspirin 81 mg 08/13/21 09:00 08/15/21 09:51 Aspirin 81 Mg PO 81 mg DAILY JERRY Administration Atorvastatin Calcium 80 mg 08/14/21 21:00 08/14/21 20:33 Atorvastatin 80 Mg Tab PO 80 mg HS JERRY Administration Budesonide/Formoterol Fumarate 2 puff 08/13/21 08:00 08/15/21 08:02 Symbicort 80-4.5 Mcg Inhaler INHALATION 2 puff RT-BID JERRY Administration Furosemide 40 mg 08/15/21 09:00 08/15/21 09:52 Furosemide 40 Mg Tab PO 40 mg DAILY JERRY Administration Gabapentin 300 mg 08/13/21 09:00 08/15/21 15:31 Gabapentin 300 Mg Cap PO 300 mg TID JERRY Administration Heparin Sodium (Porcine) 0 unit 08/12/21 23:28 Heparin Sodium 1,000 Un/Ml (10ml Vl) IV PER PROTOCOL PRN Low PTT Protocol Heparin Sodium/Sodium Chloride 250 mls @ 9.999 mls/hr 08/12/21 23:30 08/14/21 04:12 25,000 unit/ Sodium Chloride IV 5.38 units/kg/hr .Q24H JERRY 5.735 mls/hr Administration Protocol 9.38 UNITS/KG/HR Ceftriaxone Sodium 1 gm/ 50 mls @ 100 mls/hr 08/14/21 04:00 08/15/21 04:02 Sodium Chloride IVPB 100 mls/hr Q24H JERRY Administration Protocol Insulin Aspart 0 unit 08/13/21 07:30 08/15/21 12:00 Insulin Aspart (Novolog) 100 Unit/Ml Vial SQ 8 unit ACHS JERRY Administration Protocol Insulin Aspart 20 unit 08/14/21 08:45 08/15/21 12:00 Insulin Aspart (Novolog) 100 Unit/Ml Vial SQ 20 unit ACHS [facility] Administration Protocol Insulin Detemir 40 unit 08/14/21 21:00 08/14/21 20:33 Insulin Detemir (Levemir) 100 Unit/Ml Syr SQ 40 unit HS JERRY Administration Metoprolol Succinate 50 mg 08/13/21 09:00 08/15/21 09:52 Metoprolol Succinate (Er) 50 Mg Tab.Er.24h PO 50 mg DAILY JERRY Administration Miscellaneous Information 1 each 08/13/21 06:38 Potassium Replacement Protocol 1 Each Misc MISCELLANE DAILY PRN Per Protocol Protocol Naloxone HCl 0.2 mg 08/13/21 00:56 Naloxone 0.4 Mg/Ml 1 Ml Vial IV Q2M PRN Opioid Reversal Pantoprazole Sodium 40 mg 08/13/21 07:30 08/15/21 09:52 Pantoprazole 40 Mg Tablet PO 40 mg [id number] JERRY Administration Prednisone 40 mg 08/16/21 09:00 Prednisone 20 Mg Tab PO DAILY [facility] Tamsulosin HCl 0.4 mg 08/13/21 09:00 08/15/21 09:52 Tamsulosin 0.4 Mg Cap.Er.24h PO 0.4 mg DAILY JERRY Administration Objective - Vital Signs Vital signs: Vital Signs Temp 98.0 F 08/16/21 04:00 Pulse 64 08/16/21 11:57 Resp 16 08/16/21 11:40 BP 128/62 08/16/21 11:40 Pulse Ox 98 08/16/21 11:40 Intake & Output 08/15/21 08/16/21 08/16/21 18:59 06:59 18:59 Intake Total 200 260 600 Output Total 270 Balance -70 260 600 Intake: IV 200 10 0.9 100 Invasive Line 2 10 Potassium Chloride 10 meq 100 In Water For Injection 1 100ml.bag @ 100 mls/hr IVPB Q1HR JERRY Rx#: [id number] Intake, IV Titration 250 Amount Heparin Sod,Pork in 0.45% 250 NaCl 25,000 unit In 0.45 % NaCl 1 250ml.bag @ 9.38 UNITS/KG/HR 9.999 mls/hr IV .Q24H JERRY Rx#: [id number] Oral 600 Output: Urine 270 Other: Voiding Method Indwelling Catheter Toilet Toilet # Voids 1 1 2 - Labs CBC & Chem 7: 08/16/21 07:30 08/16/21 07:30 Labs: Abnormal Lab Results - Last 24 Hours (Table) 08/15/21 08/15/21 08/15/21 Range/Units 16:39 20:10 23:02 WBC (3.8-10.6) k/uL RBC (4.30-5.90) m/uL Hgb (13.0-17.5) gm/dL Hct (39.0-53.0) % APTT (22.0-30.0) sec BUN (9-20) mg/dL Creatinine (0.66-1.25) mg/dL Glucose (74-99) mg/dL POC Glucose (mg/dL) 209 H 358 H 419 H (75-99) mg/dL 08/16/21 08/16/21 08/16/21 Range/Units 02:01 06:54 07:30 WBC 11.2 H (3.8-10.6) k/uL RBC 4.28 L (4.30-5.90) m/uL Hgb 12.3 L (13.0-17.5) gm/dL Hct 38.9 L (39.0-53.0) % APTT (22.0-30.0) sec BUN (9-20) mg/dL Creatinine (0.66-1.25) mg/dL Glucose (74-99) mg/dL POC Glucose (mg/dL) 298 H 200 H (75-99) mg/dL 08/16/21 08/16/2122 Range/Units 07:30 08:33 12:02 WBC (3.8-10.6) k/uL RBC (4.30-5.90) m/uL Hgb (13.0-17.5) gm/dL Hct (39.0-53.0) % APTT 38.7 H (22.0-30.0) sec BUN 50 H (9-20) mg/dL Creatinine 1.77 H (0.66-1.25) mg/dL Glucose 226 H (74-99) mg/dL POC Glucose (mg/dL) 326 H (75-99) mg/dL Microbiology - Last 24 Hours (Table) 08/12/21 21:20 Blood Culture - Preliminary Blood No Growth after 72 hours
[2021-08-16 16:42] LABS: Glucose,Whole Blood 248 mg/dL (75-99)
[2021-08-16] MEDS: BENZONATATE 100 MG CAP PO PRN (16:54)
[2021-08-16 20:07] LABS: Glucose,Whole Blood 139 mg/dL (75-99)
[2021-08-16] MEDS: INSULIN DETEMIR (LEVEMIR) 100 UNIT/ML SYR SQ SCH (20:29)
[2021-08-16] MEDS: ATORVASTATIN 80 MG TAB PO SCH (20:29)
[2021-08-16] MEDS: MELATONIN 3 MG TABLET PO SCH (20:30)
[2021-08-16] MEDS: HEPARIN SODIUM 1,000 UN/ML (10ML VL) IV PRN (20:31)
[2021-08-17 03:30] LABS: HCT 38.5 % (39.0-53.0); HGB 12.2 gm/dL (13.0-17.5); MCH 28.7 pg (25.0-35.0); MCHC 31.7 g/dL (31.0-37.0); MCV 90.5 fL (80.0-100.0); Mean Platelet Volume 9.6; Platelet Count 246 k/uL (150-450); RBC 4.26 m/uL (4.30-5.90); RDW 13.9 % (11.5-15.5); WBC 12.3 k/uL (3.8-10.6)
[2021-08-17 03:47] LABS: Calcium 8.7 mg/dL (8.4-10.2); Potassium 3.5 mmol/L (3.5-5.1)
[2021-08-17 04:00] LABS: Glucose,Whole Blood 69 mg/dL (75-99)
[2021-08-17 04:24] LABS: Glucose,Whole Blood 70 mg/dL (75-99)
[2021-08-17] MEDS: PANTOPRAZOLE 40 MG TABLET PO SCH (06:33)
[2021-08-17 07:09] LABS: Glucose,Whole Blood 76 mg/dL (75-99)
[2021-08-17] MEDS: SYMBICORT 80-4.5 MCG INHALER INHALATION SCH ×2 (08:13→19:25)
[2021-08-17] MEDS: IPRATROPIUM-ALBUTEROL 3 ML NEB INHALATION SCH ×4 (08:13→19:27)
[2021-08-17] MEDS: METOPROLOL SUCCINATE (ER) 50 MG TAB.ER.24H PO SCH (10:29)
[2021-08-17] MEDS: FUROSEMIDE 40 MG TAB PO SCH (10:29)
[2021-08-17] MEDS: polyethylene glycoL 3350 17 GM POWD.PACK PO SCH (10:29)
[2021-08-17] MEDS: INSULIN ASPART (NovoLOG) 100 UNIT/ML VIAL SQ SCH ×7 (10:29→21:24)
[2021-08-17] MEDS: predniSONE 20 MG TAB PO SCH (10:30)
[2021-08-17] MEDS: GABAPENTIN 300 MG CAP PO SCH ×3 (10:31→21:23)
[2021-08-17] MEDS: BENZONATATE 100 MG CAP PO PRN ×3 (10:31→21:31)
[2021-08-17] MEDS: guaiFENesin 600 MG TABLET.ER PO SCH ×2 (10:31→21:23)
[2021-08-17] MEDS: ASPIRIN 81 MG PO SCH (10:31)
[2021-08-17] MEDS: TAMSULOSIN 0.4 MG CAP.ER.24H PO SCH (10:31)
[2021-08-17] MEDS: AMIODARONE 200 MG TAB PO SCH ×2 (10:31→21:23)
[2021-08-17 12:07] LABS: Glucose,Whole Blood 144 mg/dL (75-99)
[2021-08-17] MEDS ORDERED: POTASSIUM CHLORIDE ER 20 MEQ TAB.ER PO STA (12:08)
--- NOTE | 2021-08-17 12:09 | P.NPCON ---
History of Present Illness - Reason for Consult acute renal failure, chronic renal failure - History of Present Illness Reason for consultation: Acute kidney injury on chronic kidney disease History of present illness: Patient is a 86-year-old male seen in consultation for acute kidney injury on chronic kidney disease. Patient has chronic kidney disease stage IIIB with creatinine near 1.5-1.7 in January 2019 in April 2019. This admission renal function has been fairly stable with creatinine in the range of 1.5-1.8. Patient presented to the hospital with fever. He was also having a cough prior to admission. He is being treated with antibiotics. Patient also had a V. fib arrest this admission and echocardiogram showed ejection fraction of 25-30%. He's currently maintained on oral Lasix. Admits to good urine output. No hematuria or dysuria. Denies chest pain or shortness of breath at this time. He does have long-standing history of diabetes. Cardiac cath is being considered. Hemodynamically stable. Does not follow with nephrology outpatient. Vital signs are stable. General: Awake and alert. No acute distress. HEENT: Head exam is unremarkable. LUNGS: Breath sounds decreased. HEART: Rate and Rhythm are regular. ABDOMEN: Soft, no distention. EXTREMITITES: 1+ edema. Past Medical History Past Medical History: Atrial Fibrillation, Cancer, COPD, Diabetes Mellitus, Hyperlipidemia, Pneumonia, Prostate Disorder, Skin Disorder, Sleep Apne a/CPAP/BIPAP Additional Past Medical History / Comment(s): bowel perforation 2006, prostate CA, skin cancer spots removed from nose and scalp, hx migraines yr ago, atrial fibrillation status post pacemaker implantation, osteoarthritis, History of Any Multi-Drug Resistant Organisms: None Reported Past Surgical History: Back Surgery, Bowel Resection, Cardiac Ablation, Heart Catheterization, Orthopedic Surgery, Pacemaker Additional Past Surgical History / Comment(s): back surgery x2 (has cage), 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 Smoking Status: Former smoker Past Alcohol Use History: None Reported Additional Past Alcohol Use History / Comment(s): . Past Drug Use History: None Reported - Past Family History Mother Family Medical History: Cancer Additional Family Medical History / Comment(s): brain Sister(s) Family Medical History: Cancer Additional Family Medical History / Comment(s): breast Father Family Medical History: Diabetes Mellitus, Renal Disease Medications and Allergies Home Medications Medication Instructions Recorded Confirmed Type Atorvastatin [Lipitor] 80 mg PO HS 07/09/14 08/12/21 History Venlafaxine HCl [Effexor] 75 mg PO BID 07/09/14 08/12/21 History Furosemide [Lasix] 40 mg PO BID 05/17/15 08/12/21 History Ferrous Sulfate [Iron (65 MG 325 mg PO DAILY 08/06/15 08/12/21 History Elemental)] INSULIN ASPART (NovoLOG) [NovoLOG 25 unit SQ AC-TID 08/06/15 08/12/21 History (formulary)] amLODIPine [Norvasc] 5 mg PO DAILY 08/06/15 08/12/21 History Albuterol Nebulized [Ventolin 2.5 mg INHALATION RT-QID PRN 01/27/16 08/12/21 History Nebulized] Tamsulosin [Flomax] 0.4 mg PO DAILY 01/27/16 08/12/21 History Bicalutamide [Casodex] 50 mg PO DAILY 11/15/17 08/12/21 History Calcium/Vit D3 600mg/800iu 1 tab PO BID 11/15/17 08/12/21 History Gabapentin [Neurontin] 300 mg PO TID 11/15/17 08/12/21 History Warfarin [Coumadin] 5 mg PO SUTUWETHFRSA@2100 02/14/19 08/12/21 History Warfarin [Coumadin] 2.5 mg PO MO@2100 05/01/19 08/12/21 History Fluticasone Propion/Salmeterol 1 puff INHALATION RT-BID 08/12/21 08/12/21 History [Wixela 100-50 Inhub] Insulin Glargine [Lantus Vial] 55 unit SQ HS 08/12/21 08/12/21 History Metoprolol Succinate (ER) [Toprol 50 mg PO DAILY 08/12/21 08/12/21 History Xl] Omeprazole 20 mg PO BID 08/12/21 08/12/21 History Potassium Chloride ER [K-Dur 20] 20 meq PO DAILY 08/12/21 08/12/21 History hydroCHLOROthiazide 25 mg PO DAILY 08/12/21 08/12/21 History Allergies Allergy/AdvReac Type Severity Reaction Status Date / Time adhesive Allergy blisters, Verified 08/12/21 22:13 skin peels ibuprofen [From Motrin] AdvReac Abdominal Verified 08/12/21 22:13 Pain Physical Exam Vitals: Vital Signs Temp Pulse Pulse Resp BP Pulse Ox 08/17/21 11:56 64 08/17/21 10:20 97.9 F 62 18 149/75 97 08/17/21 08:31 62 08/17/21 08:13 62 08/17/21 03:25 98.0 F 60 17 148/72 96 08/17/21 00:00 98.0 F 62 16 142/68 95 08/16/21 20:00 97.8 F 57 L 16 157/70 97 08/16/21 19:54 65 08/16/21 19:44 63 08/16/21 15:49 64 08/16/21 15:40 75 16 123/62 96 08/16/21 15:37 60 Intake and Output 08/16/21 08/17/21 08/17/21 22:59 06:59 14:59 Intake Total 358.355 58.74 398.042 Output Total 500 250 450 Balance -141.645 -191.26 -51.958 Intake: IV 20 Invasive Line 2 10 Invasive Line 3 10 Intake, IV Titration 98.355 58.74 38.042 Amount Heparin Sod,Pork in 0.45% 98.355 58.74 38.042 NaCl 25,000 unit In 0.45 % NaCl 1 250ml.bag @ 9.38 UNITS/KG/HR 9.999 mls/hr IV .Q24H [facility] Rx#: [id number] Oral 240 360 Output: Urine 500 250 450 Other: Voiding Method Toilet Toilet Toilet Urinal Urinal Urinal # Voids 1 Results - Lab Results Most recent lab results ABG pH 7.45 (7.35-7.45) 08/13/21 03:11 ABG pCO2 42 mmHg (35-45) 08/13/21 03:11 ABG pO2 90 mmHg (83-108) 08/13/21 03:11 ABG HCO3 29 mmol/L (21-25) H 08/13/21 03:11 ABG O2 Saturation 97.0 % (94-97) 08/13/21 03:11 Calcium 8.7 mg/dL (8.4-10.2) 08/17/21 02:51 Magnesium 2.2 mg/dL (1.6-2.3) 08/16/21 07:30 08/17/21 02:51 08/17/21 02:51 Assessment and Plan Plan: Assessment: 1. Chronic kidney disease stage IIIB with baseline creatinine in the range of 1 .5-1.8. Renal function has been fairly stable this admission. 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 2. V. fib arrest. 3. Nonischemic cardiomyopathy with ejection fraction of 25-30%. 4. Diabetes mellitus. 5. Hypokalemia from diuresis. Plan: Maintain oral Lasix. Replace potassium. Check renal ultrasound. Avoid nephrotoxins. Continue to monitor renal function and urine output. Cardiac cath being considered. Discussed with the patient risk of worsening renal failure, potentially requiring renal replacement therapy, post-IV contrast exposure. He understands. Plan for cardiac catheterization tomorrow. Hold Lasix tomorrow. Hydrate with normal saline at 50 mL an hour starting 4-6 hours prior to cath and Hep-Lock 6 hours post catheterization. Avoid aggressive IV hydration as patient is slightly hypervolemic. Thank you for the consultation. I will continue to follow the patient with you during his hospital stay.
--- NOTE | 2021-08-17 12:10 | P.PN ---
Subjective Progress Note Date: 08/17/21 This is a very pleasant 86-year-old gentleman with a known history of Hussein's Palsy, hypertension, hyperlipidemia, diabetes mellitus, diastolic congestive heart failure, chronic kidney disease stage III, atrial fibrillation anticoagulated with warfarin status post permanent pacemaker implantation. He also has a history of severe obstructive sleep apnea that includes central apneas. He is on BiPAP at home at 18/14. He has a simple as fullface mask. He sees Dr. Quiroga for the sleep apnea. He follows with Dr. Roth in our office for COPD. He has a FEV1 value 64% of predicted. He is maintained on Wixella and albuterol. For the past several days the patient has had complaints of increasing cough congestion and generalized weakness. He presented here to the emergency room yesterday for the same. While in the emergency department he suffered a brief V. tach/V. fib arrest with brief CPR initiated on amiodarone drip and heparin drip. Chest x-ray revealed evidence of interstitial edema and suspected congestive heart failure. No pleural effusions. No pneumothorax. There is noted cardiomegaly. Noted single wire pacemaker. He was placed on BiPAP and admitted to the intensive care unit. He is seen today in consultation. He is currently awake and alert in no acute distress. He co ntinues with a loose congested cough. He denies any chest pain or palpitations. He's currently in atrial fibrillation with a paced ventricular rate at 60. He was on BiPAP 14/5 and 50% throughout the night. Currently on 5 L of oxygen with O2 saturation at 100%. He did present with a T-max of 102. Currently afebrile. White count 11.6. Hemoglobin 13.0. Platelets 167. INR 1.8. Sodium 136. Potassium 3.7. Bicarb 25. BUN 34. Creatinine 1.58. Glucose 255. Troponin 0.10, 0.09, 0.09. ProBNP 5510. Urinalysis clean. [place] virus not detected. Influenza screen negative. Echocardiogram pending. He was initiated on DuoNeb inhalations, Symbicort, ceftriaxone and azithromycin. He is also on Lasix 40 mg IV every 12 hours. Pro-calcitonin pending. 08/14/2072, the patient is being seen for a follow-up. This morning, the patient is doing well. The patient has no specific complaints. Cough and chest congestion subsided since yesterday. The patient remains hemodynamically stable and the patient is having any chest pain. He is currently on 3 L of oxygen by nasal cannula and overnight the patient utilizes BiPAP at a pressure of 18/14 cm of water as the patient has severe HANNA. The patient currently is on a Lasix regimen 40 mg IV every 12 hours and overall fluid balance is -1.0 L over the past 24 hours. He remains on IV heparin. His amiodarone drip has been discontinued and the patient was patient oral amiodarone. Based on the most recent echo results that showed impairment of LV function, the patient is tentatively scheduled to undergo a cardiac catheterization tomorrow. Blood sugars are elevated and his Levemir dose will be also adjusted to improve the blood sugar control. No other complaints otherwise for now. The patient is having a paced cardiac rhythm and occasional PVCs are also noted. Cardiology is on the case. 08/15/2021, patient is stable. The patient had a creatinine of 1.8 today and based on that the cardiac catheterization was canceled and postponed. Meanwhile, is doing well. No significant cough or congestion. He was receiving bronchodilators and steroids. He remains afebrile. He remains on 3 L of O2 nasal cannula. Utilizing his BiPAP overnight at a pressure of 80/40 cm of water. He remains on IV Lasix was stopped today and switch to oral Lasix 40 mg by mouth daily. Fluid balance is been negative. The patient started off IV heparin. Cardiac rhythm is sinus. No chest pain. No headaches. No altered mentation. On his blood work today the patient has a white cell count of 9.4 with a hemoglobin of 12.5 and a platelet count of 185, sodium level is at 1:30 with a potassium level of 3.1, bicarb is at 29. Calcium level is at 9.1. 08/16/2021, the patient is new complaints. The patient got transferred out of the intensive care unit. The plan is to do a cardiac catheterization at a later stage in this patient, pending stability of his renal function. Creatinine today stable. He has no specific complaints. No chest pain. No cough sputum production chest answer wheezing. He is afebrile. He remains on DuoNeb neb last treatment [id number], he is on empiric antibiotic coverage with IV Rocephin. He remains on IV heparin as an anticoagulant. This per cardiology recommendation. The patient is also on Lasix this was switched to oral Lasix 40 mg by mouth once a day. Meanwhile, the blood work from today shows a BUN of 50 with a creatinine of 1.7 and the patient a white cell count of 11.2 with a hem oglobin of 12.3. Note that his creatinine has remained stable for today. Blood sugars at 226, calcium is at 8.9 with a magnesium of 2.2. 08/17/2021, patient has no specific complaints the patient is doing well. No chest pain. No shortness of breath. No angina. No palpitations. The patient remains on IV heparin for now and the patient is awaiting final clearance from nephrology to proceed with cardiac catheterization. Noted the patient did drop in the patient's left ventricular ejection fraction this is to be further evaluated by a cardiac catheterization. The patient remains on DuoNeb nebulized treatment [id number]. The patient on a prednisone burst taper. Resume medication remains unchanged. On today's blood work, the patient's white cell count of 12.3 with a hemoglobin of 12.2, PTT is therapeutic, creatinine stable at 1.64 with a BUN of 99, and his sodium level is at 139. He has a congested cough. He is taking Mucinex and Tessalon Perles. Remains on DuoNeb neb last treatment [id number]. He is afebrile. Objective - Vital Signs Vital signs: Vital Signs Temp 97.9 F 08/17/21 10:20 Pulse 64 08/17/21 11:56 Resp 18 08/17/21 10:20 BP 149/75 08/17/21 10:20 Pulse Ox 97 08/17/21 10:20 Intake & Output 08/16/21 08/17/21 08/17/21 18:59 06:59 18:59 Intake Total 840 177.095 398.042 Output Total 750 450 Balance 840 -572.905 -51.958 Intake: IV 20 Invasive Line 2 10 Invasive Line 3 10 Intake, IV Titration 157.095 38.042 Amount Heparin Sod,Pork in 0.45% 157.095 38.042 NaCl 25,000 unit In 0.45 % NaCl 1 250ml.bag @ 9.38 UNITS/KG/HR 9.999 mls/hr IV .Q24H [facility] Rx#: [id number] Oral 840 360 Output: Urine 750 450 Other: Voiding Method Toilet Toilet Toilet Urinal Urinal # Voids 2 1 - Exam GENERAL EXAM: Alert, very pleasant morbidly obese 86-year-old male patient, currently on 3 L nasal cannula, comfortable in no apparent distress. HEAD: Normocephalic. History of Hussein's palsy EYES: Normal reaction of pupils, equal size. NOSE: Clear with pink turbinates. THROAT: No erythema or exudates. NECK: No masses, no JVD. CHEST: No chest wall deformity. LUNGS: Equal air entry with bilateral scattered rhonchi, expiratory wheeze, crackles in the posterior bases CVS: S1 and S2 normal with no audible murmur, regular rhythm. ABDOMEN: No hepatosplenomegaly, normal bowel sounds, no guarding or rigidity. SPINE: No scoliosis or deformity SKIN: No rashes CENTRAL NERVOUS SYSTEM: No focal deficits, tone is normal in all 4 extremities. EXTREMITIES: There is trace peripheral edema. No clubbing, no cyanosis. Peripheral pulses are intact. - Labs CBC & Chem 7: 08/17/21 02:51 08/17/21 02:51 Labs: Abnormal Lab Results - Last 24 Hours (Table) 08/16/21 08/16/21 08/16/21 Range/Units 12:02 16:40 19:59 WBC (3.8-10.6) k/uL RBC (4.30-5.90) m/uL Hgb (13.0-17.5) gm/dL Hct (39.0-53.0) % APTT 37.1 H (22.0-30.0) sec BUN (9-20) mg/dL Creatinine (0.66-1.25) mg/dL Glucose (74-99) mg/dL POC Glucose (mg/dL) 326 H 248 H (75-99) mg/dL 08/16/21 08/17/21 08/17/21 Range/Units 20:05 02:51 02:51 WBC 12.3 H (3.8-10.6) k/uL RBC 4.26 L (4.30-5.90) m/uL Hgb 12.2 L (13.0-17.5) gm/dL Hct 38.5 L (39.0-53.0) % APTT (22.0-30.0) sec BUN 49 H (9-20) mg/dL Creatinine 1.64 H (0.66-1.25) mg/dL Glucose 68 L (74-99) mg/dL POC Glucose (mg/dL) 139 H (75-99) mg/dL 08/17/21 08/17/21 08/17/21 Range/Units 02:51 03:55 04:12 WBC (3.8-10.6) k/uL RBC (4.30-5.90) m/uL Hgb (13.0-17.5) gm/dL Hct (39.0-53.0) % APTT 69.3 H (22.0-30.0) sec BUN (9-20) mg/dL Creatinine (0.66-1.25) mg/dL Glucose (74-99) mg/dL POC Glucose (mg/dL) 69 L 70 L (75-99) mg/dL 08/17/21 08/17/21 Range/Units 10:03 12:05 WBC (3.8-10.6) k/uL RBC (4.30-5.90) m/uL Hgb (13.0-17.5) gm/dL Hct (39.0-53.0) % APTT 43.8 H (22.0-30.0) sec BUN (9-20) mg/dL Creatinine (0.66-1.25) mg/dL Glucose (74-99) mg/dL POC Glucose (mg/dL) 144 H (75-99) mg/dL Microbiology - Last 24 Hours (Table) 08/12/21 21:20 Blood Culture - Preliminary Blood No Growth after 96 hours Assessment and Plan Assessment: Acute hypoxic respiratory failure secondary to an acute exacerbation of diastolic congestive heart failure and suspected underlying bronchitis/pneumonia, COPD exacerbation, clinically stable and the patient has been weaned down to room air oxygen Brief V. tach cardiac arrest in the emergency department requiring brief CPR with return of spontaneous circulation. The current cardiac rhythm is paced with occasional PVCs and the patient is off the amiodarone drip and the patient is currently on oral amiodarone. The patient remains on IV heparin. Pending cardiac catheterization History of diastolic congestive heart failure with preserved left ventricular systolic function ejection fraction 50-55%, repeat echo cardiac exam showed presence of a significant impairment of the LV function and based on the new onset CHF, the patient will need a cardiac catheterization which is being planned over the next 24 hours. The patient is awaiting his cardiac catheteriz ation Atrial fibrillation, anticoagulated with warfarin in the outpatient setting, the the patient is currently on IV heparin Single chamber permanent pacemaker secondary to above Severe obstructive sleep apnea with noted central apneas on BiPAP in the outpatient setting Chronic obstructive pulmonary disease with an FEV1 value 64% of predicted, maintained on Wixella and albuterol in the outpatient setting, currently on a combination of bronchodilators steroids. Morbid obesity History of Hussein's palsy Chronic kidney disease, creatinine stable at 1.6 History of prostate cancer with previous radiation Hyperlipidemia Hypertension History of previous spine surgery Plan: Continue bronchodilators Continue prednisone burst taper Continue Lasix 40 mg by mouth daily Continue oral amiodarone Continue oral metoprolol 50 mg by mouth daily, Toprol-XL Continue IV Rocephin Continue BiPAP overnight Monitor the cardiac rhythm The patient is currently on room air oxygen Cardiac catheterization was postponed due to concerns of contrast nephropathy. Creatinine is stable at 1.68 Hoping to proceed with cardiac catheterization in a.m. Continue IV heparin for now Continue to follow make further recommendations based on the patient's progress.
--- NOTE | 2021-08-17 13:31 | US ---
EXAMINATION TYPE: US kidneys/renal and bladder DATE OF EXAM: 08/17/2021 COMPARISON: CT 08/12/2021, ultrasound 03/16/2010 CLINICAL HISTORY: sesar. EXAM MEASUREMENTS: Right Kidney: 11.8 x 4.7 x 4.4 cm Left Kidney: 10.8 x 5.2 x 4.6 cm Technically difficult exam performed with patient sitting up as patient was unable to lay down. Right Kidney: No hydronephrosis or masses seen Left Kidney: No hydronephrosis or masses seen Bladder: not imaged as patient was unable to lay down IMPRESSION: 1. Limited examination due to patient's condition. 2. No acute suspicious ultrasound abnormality of the bilateral kidneys.
[2021-08-17 16:40] LABS: Glucose,Whole Blood 101 mg/dL (75-99)
--- NOTE | 2021-08-17 17:50 | P.PN ---
Subjective Progress Note Date: 08/17/21 (delayed charting seen at 1230) Principal diagnosis: shortness of breath Patient is an 86-year-old gentleman with a history of A. fib on Coumadin status post permanent pacemaker, COPD, HANNA on CPAP, diabetes, hypertension, dyslipidemia, and congestive heart failure who presented to the ER with complaints of shortness of breath. In the ER he underwent an extensive evaluation. He was found to be febrile with a T-max of 102.5. Laboratory analysis was remarkable for troponin of 0.1, BNP 5510. Patient was started on IV Lasix and antibiotics for possible pneumonia. Cardiology was consulted who recommended heparin drip for non-ST segment elevated myocardial infarction. Patient underwent a V. fib arrest in the ER which responded to several compressions. He was started on amiodarone and metoprolol. He was admitted to the ICU. Pulmonary was consulted. He had an echo which showed an EF of 25-30%. He has chronic kidney disease and cardio is determining appropriate timing of cardiac cath. Patient seen and examined at bedside. present he complains of cough, but better per nursing, no chest pain no shortness of breath General: non toxic, no distress, appears at stated age Derm: warm, dry Head: atraumatic, normocephalic, symmetric Eyes: EOMI, no lid lag, anicteric sclera Mouth: no lip lesion, mucus membranes moist Cardiovascular: S1S2 reg, no murmur, positive posterior tibial pulse bilateral, Lungs: Rhonchi bilateral bases, no accessory muscle use, no conversational dyspnea Abdominal: soft, nontender to palpation, no guarding, no appreciable organomega ly Ext: no gross muscle atrophy, 1+ edema, no contractures Neuro: CN II-XI grossly intact, no focal neuro deficits Psych: Alert, oriented, appropriate affect Assessment/plan: Community Acquired Pneumonia - rocephin, completed zithromax - Pulm recs - COVID, Flu negative - Mucinex, tessalone Constipation -Bowel regiment NSTEMI New systolic cardiomyopathy with acute exacerbation, EF 25-30% V fib arrest - cardio recs: cath in AM - amio oral , heparin gtt - Lasix oral - metoprolol - will need ACEI/ARB on discharge if Cr stable, and consider aldactone. DM2 with hyperglycemia Neuropathy - levemir - SSI - follow BS - A1C 8.5 - gabapentin CKD III - Cr appears at or near baseline - follow Cr - avoid nephrotoxic agents - nephro recs appreciated: discussed with patient risk of cath and recommends prehydration Chronic: HTN HLD BPH HANNA- CPAP DVT prophylaxis: Heparin gtt Discussed with: Patient, nursing, Anticipated discharge: in 2-[address]: home A total of 35 minutes was spent on the care of this complex patient more than 50% of the time was spent in counseling and care coordination. Active Medications Generic Name Dose Route Start Last Admin Trade Name Freq PRN Reason Stop Dose Admin Acetaminophen 650 mg 08/13/21 00:56 Acetaminophen Tab 325 Mg Tab PO Q6HR PRN Mild Pain or Fever > 100.5 Albuterol/Ipratropium 3 ml 08/13/21 04:22 Ipratropium-Albuterol 3 Ml Neb INHALATION RT-QID PRN Shortness Of Breath Or Wheezing Albuterol/Ipratropium 3 ml 08/13/21 08:00 08/17/21 15:53 Ipratropium-Albuterol 3 Ml Neb INHALATION 3 ml RT-QID JERRY Administration Amiodarone HCl 200 mg 08/13/21 11:15 08/17/21 10:31 Amiodarone 200 Mg Tab PO 200 mg BID JERRY Administration Aspirin 81 mg 08/13/21 09:00 08/17/21 10:31 Aspirin 81 Mg PO 81 mg DAILY JERRY Administration Atorvastatin Calcium 80 mg 08/14/21 21:00 08/16/21 20:29 Atorvastatin 80 Mg Tab PO 80 mg HS JERRY Administration Benzonatate 100 mg 08/16/21 16:10 08/17/21 16:02 Benzonatate 100 Mg Cap PO 100 mg TID PRN Administration Cough Bicalutamide 50 mg 08/18/21 09:00 Bicalutamide 50 Mg Tab PO DAILY JERRY Budesonide/Formoterol Fumarate 2 puff 08/13/21 08:00 08/17/21 08:13 Symbicort 80-4.5 Mcg Inhaler INHALATION 2 puff RT-BID JERRY Administration Furosemide 40 mg 08/15/21 09:00 08/17/21 10:29 Furosemide 40 Mg Tab PO 40 mg DAILY JERRY Administration Gabapentin 300 mg 08/13/21 09:00 08/17/21 16:02 Gabapentin 300 Mg Cap PO 300 mg TID JERRY Administration Guaifenesin 600 mg 08/16/21 10:15 08/17/21 10:31 Guaifenesin 600 Mg Tablet.Er PO 600 mg Q12HR JERRY Administration Heparin Sodium (Porcine) 0 unit 08/12/21 23:28 08/16/21 20:31 Heparin Sodium 1,000 Un/Ml (10ml Vl) IV 2,662 unit PER PROTOCOL PRN Administration Low PTT Protocol Heparin Sodium/Sodium Chloride 250 mls @ 9.999 mls/hr 08/12/21 23:30 08/17/21 10:38 25,000 unit/ Sodium Chloride IV 6.38 units/kg/hr .Q24H JERRY 6.801 mls/hr Titration Protocol 9.38 UNITS/KG/HR Ceftriaxone Sodium 1 gm/ 50 mls @ 100 mls/hr 08/14/21 04:00 08/17/21 03:22 Sodium Chloride IVPB 100 mls/hr Q24H JERRY Administration Protocol Insulin Aspart 0 unit 08/13/21 07:30 08/17/21 17:05 Insulin Aspart (Novolog) 100 Unit/Ml Vial SQ Not Given ACHS JERRY Protocol Insulin Aspart 20 unit 08/17/21 12:30 08/17/21 17:08 Insulin Aspart (Novolog) 100 Unit/Ml Vial SQ 20 unit AC-TID JERRY Administration Protocol Insulin Detemir 40 unit 08/14/21 21:00 08/16/21 20:29 Insulin Detemir (Levemir) 100 Unit/Ml Syr SQ 40 unit HS JERRY Administration Melatonin 3 mg 08/16/21 21:00 08/16/21 20:30 Melatonin 3 Mg Tablet PO 3 mg HS JERRY Administration Metoprolol Succinate 50 mg 08/13/21 09:00 08/17/21 10:29 Metoprolol Succinate (Er) 50 Mg Tab.Er.24h PO 50 mg DAILY JERRY Administration Miscellaneous Information 1 each 08/13/21 06:38 Potassium Replacement Protocol 1 Each Misc MISCELLANE DAILY PRN Per Protocol Protocol Naloxone HCl 0.2 mg 08/13/21 00:56 Naloxone 0.4 Mg/Ml 1 Ml Vial IV Q2M PRN Opioid Reversal Pantoprazole Sodium 40 mg 08/13/21 07:30 08/17/21 06:33 Pantoprazole 40 Mg Tablet PO 40 mg AC-BRKFST JERRY Administration Polyethylene Glycol 17 gm 04/30/22 10:15 08/17/21 10:29 Polyethylene Glycol 3350 17 Gm Powd.Pack PO 17 gm DAILY JERRY Administration Prednisone 40 mg 08/16/21 09:00 08/17/21 10:30 Prednisone 20 Mg Tab PO 40 mg DAILY JERRY Administration Tamsulosin HCl 0.4 mg 08/13/21 09:00 08/17/21 10:31 Tamsulosin 0.4 Mg Cap.Er.24h PO 0.4 mg DAILY JERRY Administration Venlafaxine HCl 75 mg 08/17/21 21:00 Venlafaxine Hcl 75 Mg Tab PO BID [facility] Objective - Vital Signs Vital signs: Vital Signs Temp 97.9 F 08/17/21 10:20 Pulse 67 08/17/21 16:01 Resp 18 08/17/21 12:30 BP 149/70 08/17/21 12:30 Pulse Ox 96 08/17/21 12:30 Intake & Output 08/16/21 08/17/21 08/17/21 18:59 06:59 18:59 Intake Total 840 177.095 398.042 Output Total 750 450 Balance 840 -572.905 -51.958 Intake: IV 20 Invasive Line 2 10 Invasive Line 3 10 Intake, IV Titration 157.095 38.042 Amount Heparin Sod,Pork in 0.45% 157.095 38.042 NaCl 25,000 unit In 0.45 % NaCl 1 250ml.bag @ 9.38 UNITS/KG/HR 9.999 mls/hr IV .Q24H JERRY Rx#: [id number] Oral 840 360 Output: Urine 750 450 Other: Voiding Method Toilet Toilet Toilet Urinal Urinal # Voids 2 1 - Labs CBC & Chem 7: 08/17/21 02:51 08/17/21 02:51 Labs: Abnormal Lab Results - Last 24 Hours (Table) 08/16/21 08/16/21 08/17/21 Range/Units 19:59 20:05 02:51 WBC 12.3 H (3.8-10.6) k/uL RBC 4.26 L (4.30-5.90) m/uL Hgb 12.2 L (13.0-17.5) gm/dL Hct 38.5 L (39.0-53.0) % APTT 37.1 H (22.0-30.0) sec BUN (9-20) mg/dL Creatinine (0.66-1.25) mg/dL Glucose (74-99) mg/dL POC Glucose (mg/dL) 139 H (75-99) mg/dL 08/17/21 08/17/21 08/17/21 Range/Units 02:51 02:51 03:55 WBC (3.8-10.6) k/uL RBC (4.30-5.90) m/uL Hgb (13.0-17.5) gm/dL Hct (39.0-53.0) % APTT 69.3 H (22.0-30.0) sec BUN 49 H (9-20) mg/dL Creatinine 1.64 H (0.66-1.25) mg/dL Glucose 68 L (74-99) mg/dL POC Glucose (mg/dL) 69 L (75-99) mg/dL 08/17/21 08/17/21 08/17/21 Range/Units 04:12 10:03 12:05 WBC (3.8-10.6) k/uL RBC (4.30-5.90) m/uL Hgb (13.0-17.5) gm/dL Hct (39.0-53.0) % APTT 43.8 H (22.0-30.0) sec BUN (9-20) mg/dL Creatinine (0.66-1.25) mg/dL Glucose (74-99) mg/dL POC Glucose (mg/dL) 70 L 144 H (75-99) mg/dL 08/17/21 Range/Units 16:38 WBC (3.8-10.6) k/uL RBC (4.30-5.90) m/uL Hgb (13.0-17.5) gm/dL Hct (39.0-53.0) % APTT (22.0-30.0) sec BUN (9-20) mg/dL Creatinine (0.66-1.25) mg/dL Glucose (74-99) mg/dL POC Glucose (mg/dL) 101 H (75-99) mg/dL Microbiology - Last 24 Hours (Table) 04/26/22 21:20 Blood Culture - Preliminary Blood No Growth after 96 hours
[2021-08-17 20:34] LABS: Glucose,Whole Blood 107 mg/dL (75-99)
[2021-08-17] MEDS: ATORVASTATIN 80 MG TAB PO SCH (21:23)
[2021-08-17] MEDS: MELATONIN 3 MG TABLET PO SCH (21:24)
[2021-08-17] MEDS: INSULIN DETEMIR (LEVEMIR) 100 UNIT/ML SYR SQ SCH (21:24)
[2021-08-17] MEDS: VENLAFAXINE HCL 75 MG TAB PO SCH (21:26)
[2021-08-17] MEDS: HEPARIN SOD,PORK IN 0.45% NACL 25,000 UNIT in 0.45% NACL 1 250ML.BAG IV SCH (21:31)
[2021-08-18] MEDS: HEPARIN SODIUM 1,000 UN/ML (10ML VL) IV PRN (00:15)
[2021-08-18] MEDS: IPRATROPIUM-ALBUTEROL 3 ML NEB INHALATION SCH ×4 (06:16→19:44)
[2021-08-18] MEDS: INSULIN ASPART (NovoLOG) 100 UNIT/ML VIAL SQ SCH ×7 (06:21→21:32)
[2021-08-18 06:25] LABS: Glucose,Whole Blood 141 mg/dL (75-99)
[2021-08-18] MEDS: BICALUTAMIDE 50 MG TAB PO SCH (06:41)
[2021-08-18] MEDS: PANTOPRAZOLE 40 MG TABLET PO SCH (06:42)
[2021-08-18] MEDS: guaiFENesin 600 MG TABLET.ER PO SCH ×2 (06:42→21:31)
[2021-08-18] MEDS: predniSONE 20 MG TAB PO SCH (06:42)
[2021-08-18] MEDS: VENLAFAXINE HCL 75 MG TAB PO SCH ×2 (06:42→21:35)
[2021-08-18] MEDS: ASPIRIN 81 MG PO SCH (06:42)
[2021-08-18] MEDS: TAMSULOSIN 0.4 MG CAP.ER.24H PO SCH (06:42)
[2021-08-18] MEDS: GABAPENTIN 300 MG CAP PO SCH ×3 (06:42→21:31)
[2021-08-18] MEDS: METOPROLOL SUCCINATE (ER) 50 MG TAB.ER.24H PO SCH (06:42)
[2021-08-18] MEDS: AMIODARONE 200 MG TAB PO SCH ×2 (06:42→21:31)
[2021-08-18] MEDS: FUROSEMIDE 40 MG TAB PO SCH (06:43)
[2021-08-18] MEDS: polyethylene glycoL 3350 17 GM POWD.PACK PO SCH (06:43)
[2021-08-18] MEDS: BENZONATATE 100 MG CAP PO PRN ×2 (06:45→21:31)
[2021-08-18] MEDS: SYMBICORT 80-4.5 MCG INHALER INHALATION SCH ×2 (08:02→19:57)
[2021-08-18 08:10] LABS: Calcium 8.9 mg/dL (8.4-10.2); Magnesium 2.3 mg/dL (1.6-2.3); Potassium 4.8 mmol/L (3.5-5.1)
[2021-08-18] MEDS ORDERED: FUROSEMIDE 10 MG/ML 4 ML VIAL IV STA (09:30)
--- NOTE | 2021-08-18 10:16 | P.PN ---
Subjective Patient is seen in follow-up for acute kidney injury on chronic kidney disease. Renal function stable. Denies chest pain or shortness of breath. Hemodynamically stable. On room air. Good urine output. Vital signs are stable. General: Awake and alert. No acute distress. HEENT: Head exam is unremarkable. LUNGS: Breath sounds decreased. HEART: Rate and Rhythm are regular. ABDOMEN: Soft, no distention. EXTREMITITES: 1+ edema. Objective - Vital Signs Vital signs: Vital Signs Temp 97.7 F 08/18/21 07:30 Pulse 61 08/18/21 07:30 Resp 18 08/18/21 07:30 BP 150/72 08/18/21 07:30 Pulse Ox 96 08/18/21 07:30 Intake & Output 08/17/21 08/18/21 08/18/21 18:59 06:59 18:59 Intake Total 452.905 38.589 73.697 Output Total 450 1100 Balance 2.905 -1061.411 73.697 Weight 104.3 kg Intake: IV 20 Invasive Line 1 10 Invasive Line 3 10 Intake, IV Titration 92.905 18.589 73.697 Amount Heparin Sod,Pork in 0.45% 92.905 18.589 73.697 NaCl 25,000 unit In 0.45 % NaCl 1 250ml.bag @ 9.38 UNITS/KG/HR 9.999 mls/hr IV .Q24H [facility] Rx#: [id number] Oral 360 Output: Urine 450 1100 Other: Voiding Method Toilet Toilet Urinal Urinal # Voids 1 - Labs CBC & Chem 7: 08/17/21 02:51 08/18/21 07:29 Labs: Abnormal Lab Results - Last 24 Hours (Table) 08/17/21 08/17/21 08/17/21 Range/Units 10:03 12:05 16:38 APTT 43.8 H (22.0-30.0) sec BUN (9-20) mg/dL Creatinine (0.66-1.25) mg/dL Glucose (74-99) mg/dL POC Glucose (mg/dL) 144 H 101 H (75-99) mg/dL 08/17/21 08/17/21 08/17/21 Range/Units 17:05 20:30 23:45 APTT 37.0 H 38.8 H (22.0-30.0) sec BUN (9-20) mg/dL Creatinine (0.66-1.25) mg/dL Glucose (74-99) mg/dL POC Glucose (mg/dL) 107 H (75-99) mg/dL 08/18/21 08/18/21 08/18/21 Range/Units 06:19 07:29 07:29 APTT 75.9 H (22.0-30.0) sec BUN 43 H (9-20) mg/dL Creatinine 1.68 H (0.66-1.25) mg/dL Glucose 153 H (74-99) mg/dL POC Glucose (mg/dL) 141 H (75-99) mg/dL Microbiology - Last 24 Hours (Table) 08/12/21 21:20 Blood Culture - Preliminary Blood No Growth after 120 hours Assessment and Plan Plan: Assessment: 1. Chronic kidney disease stage IIIB with baseline creatinine in the range of 1.5-1.8. Renal function has been fairly stable this admission. 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 No hydronephrosis noted on kidney ultrasound. 2. V. fib arrest. 3. Nonischemic cardiomyopathy with ejection fraction of 25-30%. 4. Diabetes mellitus. 5. Hypokalemia from diuresis. Replaced. Better. 6. Volume overload. Plan: Will give 2 doses of IV Lasix 40 mg today. Avoid nephrotoxins. Continue to monitor renal function and urine output. Cardiac cath being considered. Discussed with the patient risk of worsening renal failure, potentially requiring renal replacement therapy, post-IV contrast exposure. He understands. Plan for cardiac catheterization possibly tomorrow. Hold Lasix tomorrow. Hydrate with normal saline at 50 mL an hour starting 4-6 hours prior to cath and Hep-Lock 6 hours post catheterization. Avoid aggressive IV hydration as patient is slightly hypervolemic. Discussed with cardiology.
[2021-08-18 11:40] LABS: Glucose,Whole Blood 323 mg/dL (75-99)
--- NOTE | 2021-08-18 14:03 | P.PN ---
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 He follows with Dr. Cao. We are following the patient for co ngestive heart failure. Patient presents emergency department with shortness of breath. In the emergency department patient had episodes of ventricular tachycardia and ventricular fibrillation requiring CPR. And he was admitted to the ICU on admission. He was started on Amiodarone and did not have any further episodes of Vfib or Vtach. Echocardiogram revealed moderate reduced global LV systolic function with an EF 25%-30%, mild to moderate aortic stenosis. mild mitral regurgitation, mild t ricuspid regurgitation. 08/18/2021 Patient seen and examined at bedside, continues to have shortness of breath and lower extremity edema. He denies any chest pain. Patiente with -1058mL fluid balance over the past 24 hours. Decrease in weight. Vpaced on the monitor. He is currently maintained on PO Lasix 40mg daily, PO amiodarone 200mg BID, aspirin 80 mg daily, atorvastatin 80 mg nightly, IV heparin, metoprolol succinate 50 mg daily Sodium 141, potassium 4.8, BUN 43, serum creatinine 1.68, magnesium 2.3 GENERAL: In no acute distress. NECK: Supple without JVD or thyromegaly. LUNGS: Breath sounds bilateral crackles to auscultation bilaterally. Respiration equal and unlabored. No wheezes, rales or rhonchi. HEART: Regular rate and rhythm without murmurs, rubs or gallops. S1 and S2 heard. EXTREMITIES: Normal range of motion, 2+ bilateral lower extremity edema. No clubbing or cyanosis. Peripheral pulses intact. ASSESSMENT Acute heart failure exacerbation with reduced ejection fraction Cardiomyopathy, ischemic vs non-ischemic Pneumonia Brief Ventricular tachycardia cardiac arrest in emergency department requiring CPR with return of spontaneous circulation Acute on Chronic kidney disease Mild to moderate triple vessel coronary artery disease from cath 05/2009 Type 2 diabetes Mild to moderate aortic stenosis Persistent atrial fibrillation on coumadin outpatient, currently on IV heparin Hypertension Dyslipidemia Sick sinus syndrome status post single chamber pacemaker implantation 2015 Mild Tricuspid regurgitation Mild mitral regurgitation Obstructive sleep apnea COPD History of prostate cancer PLAN Recommend IV Lasix 40mg today and discontinue tonight. Hold AM Dose Lasix Monitor renal function and electrolytes Monitor I/Os, daily weights Continue amiodarone, aspirin, statin, metoprolol succinate Continue IV heparin NPO after midnight for possible cardiac catheterization with Dr. Cao tomorrow 08/19/21 pending patient's response to IV Lasix and renal function Nephrology following Further recommendations based on clinical course Nurse Practitioner note has been reviewed, I agree with a documented findings and plan of care. Patient was seen and examined. Objective - Vital Signs Vital signs: Vital Signs Temp 97.6 F 08/18/21 12:00 Pulse 60 08/18/21 12:00 Resp 18 08/18/21 12:00 BP 145/66 08/18/21 12:00 Pulse Ox 95 08/18/21 12:00 Intake & Output 08/17/21 08/18/21 08/18/21 18:59 06:59 18:59 Intake Total 452.905 38.589 73.697 Output Total 450 1100 Balance 2.905 -1061.411 73.697 Weight 104.3 kg Intake: IV 20 Invasive Line 1 10 Invasive Line 3 10 Intake, IV Titration 92.905 18.589 73.697 Amount Heparin Sod,Pork in 0.45% 92.905 18.589 73.697 NaCl 25,000 unit In 0.45 % NaCl 1 250ml.bag @ 9.38 UNITS/KG/HR 9.999 mls/hr IV .Q24H [facility] Rx#: [id number] Oral 360 Output: Urine 450 1100 Other: Voiding Method Toilet Toilet Urinal Urinal # Voids 1 - Labs CBC & Chem 7: 08/17/21 02:51 08/18/21 07:29 Labs: Abnormal Lab Results - Last 24 Hours (Table) 08/17/21 08/17/21 08/17/21 Range/Units 16:38 17:05 20:30 APTT 37.0 H (22.0-30.0) sec BUN (9-20) mg/dL Creatinine (0.66-1.25) mg/dL Glucose (74-99) mg/dL POC Glucose (mg/dL) 101 H 107 H (75-99) mg/dL 05/01/22 05/02/22 05/02/22 Range/Units 23:45 06:19 07:29 APTT 38.8 H (22.0-30.0) sec BUN 43 H (9-20) mg/dL Creatinine 1.68 H (0.66-1.25) mg/dL Glucose 153 H (74-99) mg/dL POC Glucose (mg/dL) 141 H (75-99) mg/dL 08/18/21 08/18/21 Range/Units 07:29 11:36 APTT 75.9 H (22.0-30.0) sec BUN (9-20) mg/dL Creatinine (0.66-1.25) mg/dL Glucose (74-99) mg/dL POC Glucose (mg/dL) 323 H (75-99) mg/dL Microbiology - Last 24 Hours (Table) 08/12/21 21:20 Blood Culture - Preliminary Blood No Growth after 120 hours
--- NOTE | 2021-08-18 14:21 | P.PN ---
Subjective Progress Note Date: 08/18/21 Principal diagnosis: Acute hypoxic respiratory failure secondary to acute exacerbation of diastolic congestive heart failure, underlying pneumonia is not entirely ruled out. Howev er the patient does have in addition to this acute exacerbation of COPD This is a very pleasant 86-year-old gentleman with a known history of Hussein's Palsy, hypertension, hyperlipidemia, diabetes mellitus, diastolic congestive heart failure, chronic kidney disease stage III, atrial fibrillation anti coagulated with warfarin status post permanent pacemaker implantation. He also has a history of severe obstructive sleep apnea that includes central apneas. He is on BiPAP at home at 18/14. He has a simple as fullface mask. He sees Dr. Quiroga for the sleep apnea. He follows with Dr. Roth in our office for COPD. He has a FEV1 value 64% of predicted. He is maintained on Wix[place] and albuter ol. For the past several days the patient has had complaints of increasing cough congestion and generalized weakness. He presented here to the emergency room yesterday for the same. While in the emergency department he suffered a brief V. tach/V. fib arrest with brief CPR initiated on amiodarone drip and heparin drip. Chest x-ray revealed evidence of interstitial edema and suspected congestive heart failure. No pleural effusions. No pneumothorax. There is noted cardiomegaly. Noted single wire pacemaker. He was placed on BiPAP and admitted to the intensive care unit. He is seen today in consultation. He is currently awake and alert in no acute distress. He continues with a loose c ongested cough. He denies any chest pain or palpitations. He's currently in atrial fibrillation with a paced ventricular rate at 60. He was on BiPAP 14/5 and 50% throughout the night. Currently on 5 L of oxygen with O2 saturation at 100%. He did present with a T-max of 102. Currently afebrile. White count 11.6. Hemoglobin 13.0. Platelets 167. INR 1.8. Sodium 136. Potassium 3.7. Bicarb 25. BUN 34. Creatinine 1.58. Glucose 255. Troponin 0.10, 0.09, 0.09. ProBNP 5510. Urinalysis clean. [place] virus not detected. Influenza screen negative. Echocardiogram pending. He was initiated on DuoNeb inhalations, Symbicort, ceftriaxone and azithromycin. He is also on Lasix 40 mg IV every 12 hours. Pro-calcitonin pending. 08/17/2021, patient has no specific complaints the patient is doing well. No chest pain. No shortness of breath. No angina. No palpitations. The patient remains on IV heparin for now and the patient is awaiting final clearance from nephrology to proceed with cardiac catheterization. Noted the patient did drop in the patient's left ventricular ejection fraction this is to be further evaluated by a cardiac catheterization. The patient remains on DuoNeb nebulized treatment [id number]. The patient on a prednisone burst taper. Resume medication remains unchanged. On today's blood work, the patient's white cell count of 12.3 with a hemoglobin of 12.2, PTT is therapeutic, creatinine stable at 1.64 with a BUN of 99, and his sodium level is at 139. He has a congested cough. He is taking Mucinex and Tessalon Perles. Remains on DuoNeb neb last treatment [id number]. He is afebrile. Reevaluated today on 08/18/21, patient is doing well today, does not seem to be in any distress, he is on room air, O2 sats is 95%. Last chest x-ray from 08/14/2021, showed mostly retrocardiac atelectasis, elevation of the left hemidiaphragm, and patchy density at the right lung base. No evidence of pulmonary edema on the chest x-ray from a few days ago. Patient is known to have history of cardiomyopathy and LV dysfunction, being followed by nephrology, and he is also being followed by cardiology, being considered for cardiac catheterization on 08/19/21. Creatinine remains elevated at 1.68, and that may be an issue to consider before cardiac catheterization patient remains on heparin, his PTT is 75.9. Objective - Vital Signs Vital signs: Vital Signs Temp 97.6 F 08/18/21 12:00 Pulse 60 08/18/21 12:00 Resp 18 08/18/21 12:00 BP 145/66 08/18/21 12:00 Pulse Ox 95 08/18/21 12:00 Intake & Output 08/17/21 08/18/21 08/18/21 18:59 06:59 18:59 Intake Total 452.905 38.589 73.697 Output Total 450 1100 Balance 2.905 -1061.411 73.697 Weight 104.3 kg Intake: IV 20 Invasive Line 1 10 Invasive Line 3 10 Intake, IV Titration 92.905 18.589 73.697 Amount Heparin Sod,Pork in 0.45% 92.905 18.589 73.697 NaCl 25,000 unit In 0.45 % NaCl 1 250ml.bag @ 9.38 UNITS/KG/HR 9.999 mls/hr IV .Q24H [facility] Rx#: [id number] Oral 360 Output: Urine 450 1100 Other: Voiding Method Toilet Toilet Urinal Urinal # Voids 1 - Exam Physical Exam: Revealed an 86-year-old white male in no distress, on room air. Head: Atraumatic, normocephalic. HEENT:[Neck is supple.] [No neck masses.] [No thyromegaly.] [No JVD.] Chest: [Diminished breath sounds at the bases no crackles or rhonchi or wheezes Cardiac Exam: Irregular irregular rhythm. [Normal S1 and S2, no S3 gallop, 2/6 systolic murmur throughout the precordium. Abdomen: [Soft, nontender, no megaly, no rebound, no guarding, normal bowel sounds.] Extremities: [No clubbing, no edema, no cyanosis.] Neurological Exam: [No focal neurologic deficit.] Alert and oriented 3. Psychiatric: Normal mood affect and normal mental status examination. Skin: No rashes - Labs CBC & Chem 7: 08/17/21 02:51 08/18/21 07:29 Labs: Abnormal Lab Results - Last 24 Hours (Table) 08/17/21 08/17/21 08/17/21 Range/Units 16:38 17:05 20:30 APTT 37.0 H (22.0-30.0) sec BUN (9-20) mg/dL Creatinine (0.66-1.25) mg/dL Glucose (74-99) mg/dL POC Glucose (mg/dL) 101 H 107 H (75-99) mg/dL 08/17/21 08/18/21 08/18/21 Range/Units 23:45 06:19 07:29 APTT 38.8 H (22.0-30.0) sec BUN 43 H (9-20) mg/dL Creatinine 1.68 H (0.66-1.25) mg/dL Glucose 153 H (74-99) mg/dL POC Glucose (mg/dL) 141 H (75-99) mg/dL 08/18/21 08/18/21 Range/Units 07:29 11:36 APTT 75.9 H (22.0-30.0) sec BUN (9-20) mg/dL Creatinine (0.66-1.25) mg/dL Glucose (74-99) mg/dL POC Glucose (mg/dL) 323 H (75-99) mg/dL Microbiology - Last 24 Hours (Table) 08/12/21 21:20 Blood Culture - Preliminary Blood No Growth after 120 hours Assessment and Plan Assessment: Impression: Acute hypoxic respiratory failure secondary to acute systolic congestive heart failure ejection fraction of 25-30%, improving. Severe cardiomyopathy and LV dysfunction may require further cardiac workup/cardiac catheterization. Brief cardiac arrest secondary to ventricular tachycardia requiring CPR History of triple-vessel coronary artery disease Type 2 diabetes Chronic atrial fibrillation Hypertension Dyslipidemia History of sick sinus syndrome Obstructive sleep apnea History of COPD presently inactive History of prostate cancer. Recommendation: Continue bronchodilators and diuretics. Continue IV Rocephin. Continue BiPAP at night as needed Continue Lasix. Continue to monitor renal functioning Continue cardiac meds including metoprolol and amiodarone. Continue IV heparin Patient is being considered for possible cardiac catheterization tomorrow. We'll continue to follow. Time with Patient: Less than 30
[2021-08-18 16:36] LABS: Glucose,Whole Blood 304 mg/dL (75-99)
--- NOTE | 2021-08-18 19:50 | P.PN ---
Subjective Progress Note Date: 08/18/21 (delayed charting seen at bedside at 1530) Principal diagnosis: shortness of breath Patient is an 86-year-old gentleman with a history of A. fib on Coumadin status post permanent pacemaker, COPD, HANNA on CPAP, diabetes, hypertension, dyslipidemia, and congestive heart failure who presented to the ER with complaints of shortness of breath. In the ER he underwent an extensive carlos luation. He was found to be febrile with a T-max of 102.5. Laboratory analysis was remarkable for troponin of 0.1, BNP 5510. Patient was started on IV Lasix and antibiotics for possible pneumonia. Cardiology was consulted who recommended heparin drip for non-ST segment elevated myocardial infarction. Patient underwent a V. fib arrest in the ER which responded to several compressions. He was started on amiodarone and metoprolol. He was admitted to the ICU. Pulmonary was consulted. He had an echo which showed an EF of 25-30%. He has chronic kidney disease and cardio is determining appropriate timing of cardiac cath. Patient seen and examined at bedside. No chest pain, Cough better, shortness of breath better. General: non toxic, no distress, appears at stated age Derm: warm, dry Head: atraumatic, normocephalic, symmetric Eyes: EOMI, no lid lag, anicteric sclera Mouth: no lip lesion, mucus membranes moist Cardiovascular: S1S2 reg, no murmur, positive posterior tibial pulse bilateral, Lungs:course bs b/l, no accessory muscle use, no conversational dyspnea Abdominal: soft, nontender to palpation, no guarding, no appreciable organomegaly Ext: no gross muscle atrophy, 2+ edema, no contractures Neuro: CN II-XI grossly intact, no focal neuro deficits Psych: Alert, oriented, appropriate affect Assessment/plan: Community Acquired Pneumonia - rocephin completed, completed zithromax - Pulm recs - COVID, Flu negative - Mucinex, tessalon Constipation -Bowel regiment NSTEMI New systolic cardiomyopathy with acute exacerbation, EF 25-30% V fib arrest - cardio recs: cath in AM - amio oral , heparin gtt - Lasix oral - metoprolol - will need ACEI/ARB on discharge if Cr stable, and consider aldactone. DM2 with hyperglycemia Neuropathy - levemir - SSI - follow BS - A1C 8.5 - gabapentin CKD III - Cr appears at or near baseline - follow Cr - avoid nephrotoxic agents - nephro recs appreciated: discussed with patient risk of cath and recommends prehydration Chronic: HTN HLD BPH HANNA- CPAP DVT prophylaxis: Heparin gtt Discussed with: Patient, nursing Anticipated discharge: in 2-[address]: home A total of 35 minutes was spent on the care of this complex patient more than 50% of the time was spent in counseling and care coordination. Active Medications Generic Name Dose Route Start Last Admin Trade Name Freq PRN Reason Stop Dose Admin Acetaminophen 650 mg 08/13/21 00:56 Acetaminophen Tab 325 Mg Tab PO Q6HR PRN Mild Pain or Fever > 100.5 Albuterol/Ipratropium 3 ml 08/13/21 04:22 Ipratropium-Albuterol 3 Ml Neb INHALATION RT-QID PRN Shortness Of Breath Or Wheezing Albuterol/Ipratropium 3 ml 08/13/21 08:00 08/18/21 15:56 Ipratropium-Albuterol 3 Ml Neb INHALATION 3 ml RT-QID JERRY Administration Amiodarone HCl 200 mg 08/13/21 11:15 08/18/21 06:42 Amiodarone 200 Mg Tab PO 200 mg BID JERRY Administration Aspirin 81 mg 08/13/21 09:00 08/18/21 06:42 Aspirin 81 Mg PO 81 mg DAILY JERRY Administration Atorvastatin Calcium 80 mg 08/14/21 21:00 08/17/21 21:23 Atorvastatin 80 Mg Tab PO 80 mg HS JERRY Administration Benzonatate 100 mg 08/16/21 16:10 08/18/21 06:45 Benzonatate 100 Mg Cap PO 100 mg TID PRN Administration Cough Bicalutamide 50 mg 08/18/21 09:00 08/18/21 06:41 Bicalutamide 50 Mg Tab PO 50 mg DAILY JERRY Administration Budesonide/Formoterol Fumarate 2 puff 08/13/21 08:00 08/18/21 08:02 Symbicort 80-4.5 Mcg Inhaler INHALATION 2 puff RT-BID JERRY Administration Furosemide 40 mg 08/15/21 09:00 08/18/21 06:43 Furosemide 40 Mg Tab PO Not Given DAILY JERRY Furosemide 40 mg 08/18/21 21:00 Furosemide 10 Mg/Ml 4 Ml Vial IV 08/18/21 21:01 Q12HR JERRY Gabapentin 300 mg 08/13/21 09:00 08/18/21 16:58 Gabapentin 300 Mg Cap PO 300 mg TID JERRY Administration Guaifenesin 600 mg 08/16/21 10:15 08/18/21 06:42 Guaifenesin 600 Mg Tablet.Er PO 600 mg Q12HR JERRY Administration Heparin Sodium (Porcine) 0 unit 08/12/21 23:28 08/18/21 00:15 Heparin Sodium 1,000 Un/Ml (10ml Vl) IV 2,662 unit PER PROTOCOL PRN Administration Low PTT Protocol Heparin Sodium/Sodium Chloride 250 mls @ 9.999 mls/hr 08/12/21 23:30 08/18/21 17:01 25,000 unit/ Sodium Chloride IV 6.8 units/kg/hr .Q24H JERRY 7.248 mls/hr Titration Protocol 9.38 UNITS/KG/HR Ceftriaxone Sodium 1 gm/ 50 mls @ 100 mls/hr 08/14/21 04:00 08/18/21 04:03 Sodium Chloride IVPB 100 mls/hr Q24H JERRY Administration Protocol Insulin Aspart 0 unit 08/13/21 07:30 08/18/21 16:58 Insulin Aspart (Novolog) 100 Unit/Ml Vial SQ 8 unit ACHS JERRY Administration Protocol Insulin Aspart 20 unit 08/17/21 12:30 08/18/21 16:58 Insulin Aspart (Novolog) 100 Unit/Ml Vial SQ 20 unit AC-TID JERRY Administration Protocol Insulin Detemir 40 unit 08/14/21 21:00 08/17/21 21:24 Insulin Detemir (Levemir) 100 Unit/Ml Syr SQ Not Given HS JERRY Melatonin 3 mg 08/16/21 21:00 08/17/21 21:24 Melatonin 3 Mg Tablet PO 3 mg HS JERRY Administration Metoprolol Succinate 50 mg 08/13/21 09:00 08/18/21 06:42 Metoprolol Succinate (Er) 50 Mg Tab.Er.24h PO 50 mg DAILY JERRY Administration Miscellaneous Information 1 each 08/13/21 06:38 Potassium Replacement Protocol 1 Each Misc MISCELLANE DAILY PRN Per Protocol Protocol Naloxone HCl 0.2 mg 08/13/21 00:56 Naloxone 0.4 Mg/Ml 1 Ml Vial IV Q2M PRN Opioid Reversal Pantoprazole Sodium 40 mg 08/13/21 07:30 08/18/21 06:42 Pantoprazole 40 Mg Tablet PO 40 mg AC-BRKFST JERRY Administration Polyethylene Glycol 17 gm 08/16/21 10:15 08/18/21 06:43 Polyethylene Glycol 3350 17 Gm Powd.Pack PO Not Given DAILY JERRY Prednisone 40 mg 08/16/21 09:00 08/18/21 06:42 Prednisone 20 Mg Tab PO 40 mg DAILY JERRY Administration Tamsulosin HCl 0.4 mg 08/13/21 09:00 08/18/21 06:42 Tamsulosin 0.4 Mg Cap.Er.24h PO 0.4 mg DAILY JERRY Administration Venlafaxine HCl 75 mg 08/17/21 21:00 08/18/21 06:42 Venlafaxine Hcl 75 Mg Tab PO 75 mg BID JERRY Administration Objective - Vital Signs Vital signs: Vital Signs Temp 97.2 F L 08/18/21 16:00 Pulse 75 08/18/21 16:10 Resp 18 08/18/21 16:00 BP 152/91 08/18/21 16:00 Pulse Ox 95 08/18/21 16:00 Intake & Output 08/18/21 08/18/21 08/19/21 06:59 18:59 06:59 Intake Total 38.589 735.426 Output Total 1100 Balance -1061.411 735.426 Weight 104.3 kg Intake: IV 20 Invasive Line 1 10 Invasive Line 3 10 Intake, IV Titration 18.589 135.426 Amount Heparin Sod,Pork in 0.45% 18.589 135.426 NaCl 25,000 unit In 0.45 % NaCl 1 250ml.bag @ 9.38 UNITS/KG/HR 9.999 mls/hr IV .Q24H [facility] Rx#: [id number] Oral 600 Output: Urine 1100 Other: Voiding Method Toilet Urinal # Voids 1 1 - Labs CBC & Chem 7: 08/17/21 02:51 08/18/21 07:29 Labs: Abnormal Lab Results - Last 24 Hours (Table) 08/17/21 08/17/21 08/18/21 Range/Units 20:30 23:45 06:19 APTT 38.8 H (22.0-30.0) sec BUN (9-20) mg/dL Creatinine (0.66-1.25) mg/dL Glucose (74-99) mg/dL POC Glucose (mg/dL) 107 H 141 H (75-99) mg/dL 08/18/21 08/18/21 08/18/21 Range/Units 07:29 07:29 11:36 APTT 75.9 H (22.0-30.0) sec BUN 43 H (9-20) mg/dL Creatinine 1.68 H (0.66-1.25) mg/dL Glucose 153 H (74-99) mg/dL POC Glucose (mg/dL) 323 H (75-99) mg/dL 08/18/21 08/18/21 Range/Units 15:16 16:27 APTT 56.0 H (22.0-30.0) sec BUN (9-20) mg/dL Creatinine (0.66-1.25) mg/dL Glucose (74-99) mg/dL POC Glucose (mg/dL) 304 H (75-99) mg/dL Microbiology - Last 24 Hours (Table) 08/12/21 21:20 Blood Culture - Preliminary Blood No Growth after 120 hours
[2021-08-18 20:15] LABS: Glucose,Whole Blood 229 mg/dL (75-99)
[2021-08-18] MEDS ORDERED: FUROSEMIDE 10 MG/ML 4 ML VIAL IV SCH (21:00)
[2021-08-18] MEDS: ATORVASTATIN 80 MG TAB PO SCH (21:31)
[2021-08-18] MEDS: MELATONIN 3 MG TABLET PO SCH (21:32)
[2021-08-18] MEDS: INSULIN DETEMIR (LEVEMIR) 100 UNIT/ML SYR SQ SCH (21:32)
[2021-08-19] MEDS: HEPARIN SOD,PORK IN 0.45% NACL 25,000 UNIT in 0.45% NACL 1 250ML.BAG IV SCH ×2 (00:51→08:59)
[2021-08-19 05:54] LABS: Glucose,Whole Blood 54 mg/dL (75-99)
[2021-08-19 05:54] LABS: Glucose,Whole Blood 60 mg/dL (75-99)
[2021-08-19] MEDS ORDERED: DEXTROSE 50% SYRINGE 50 ML IVP ONE ×2 (05:56→12:07)
[2021-08-19] MEDS: FUROSEMIDE 40 MG TAB PO SCH (06:04)
[2021-08-19] MEDS: INSULIN ASPART (NovoLOG) 100 UNIT/ML VIAL SQ SCH ×8 (06:04→21:41)
[2021-08-19] MEDS: polyethylene glycoL 3350 17 GM POWD.PACK PO SCH (06:05)
[2021-08-19 06:15] LABS: Glucose,Whole Blood 114 mg/dL (75-99)
[2021-08-19] MEDS: ASPIRIN 81 MG PO SCH (06:45)
[2021-08-19] MEDS: VENLAFAXINE HCL 75 MG TAB PO SCH ×2 (06:46→21:41)
[2021-08-19] MEDS: METOPROLOL SUCCINATE (ER) 50 MG TAB.ER.24H PO SCH (06:46)
[2021-08-19] MEDS: GABAPENTIN 300 MG CAP PO SCH ×3 (06:46→21:40)
[2021-08-19] MEDS: AMIODARONE 200 MG TAB PO SCH ×2 (06:46→21:41)
[2021-08-19] MEDS: TAMSULOSIN 0.4 MG CAP.ER.24H PO SCH (06:46)
[2021-08-19] MEDS: BICALUTAMIDE 50 MG TAB PO SCH (06:46)
[2021-08-19] MEDS: predniSONE 20 MG TAB PO SCH (06:46)
[2021-08-19] MEDS: PANTOPRAZOLE 40 MG TABLET PO SCH (06:46)
[2021-08-19] MEDS: guaiFENesin 600 MG TABLET.ER PO SCH ×2 (06:46→21:41)
[2021-08-19] MEDS: BENZONATATE 100 MG CAP PO PRN (06:59)
[2021-08-19] MEDS: SODIUM CHLORIDE 0.9% 1,000 ML IV SCH (07:00)
[2021-08-19] MEDS: SYMBICORT 80-4.5 MCG INHALER INHALATION SCH ×2 (08:49→19:54)
[2021-08-19] MEDS: IPRATROPIUM-ALBUTEROL 3 ML NEB INHALATION SCH ×4 (08:49→19:54)
[2021-08-19 09:55] LABS: Basophils # (A) 0.1 k/uL (0-0.2); Basophils % (A) 0 %; Eosinophils # (A) 0.1 k/uL (0-0.7); Eosinophils % (A) 1 %; HCT 38.4 % (39.0-53.0); HGB 12.3 gm/dL (13.0-17.5); Lymphocytes # (A) 1.2 k/uL (1.0-4.8); Lymphocytes % (A) 10 %; MCH 29.3 pg (25.0-35.0); MCHC 32.1 g/dL (31.0-37.0); MCV 91.2 fL (80.0-100.0); Mean Platelet Volume 9.4; Monocytes # (A) 0.7 k/uL (0-1.0); Monocytes % (A) 6 %; Neutrophils # (A) 9.5 k/uL (1.3-7.7); Neutrophils % (A) 81 %; Platelet Count 259 k/uL (150-450); RBC 4.21 m/uL (4.30-5.90); RDW 14.6 % (11.5-15.5); WBC 11.7 k/uL (3.8-10.6)
[2021-08-19 10:09] LABS: Calcium 8.4 mg/dL (8.4-10.2); Magnesium 2.6 mg/dL (1.6-2.3); Potassium 4.4 mmol/L (3.5-5.1)
--- NOTE | 2021-08-19 10:43 | P.PN ---
Subjective Patient is seen in follow-up for acute kidney injury on chronic kidney disease. Renal function stable. Denies chest pain or shortness of breath. Hemodynamically stable. On room air. Good urine output. No changes overnight. Vital signs are stable. General: Awake and alert. No acute distress. HEENT: Head exam is unremarkable. LUNGS: Breath sounds decreased. HEART: Rate and Rhythm are regular. ABDOMEN: Soft, no distention. EXTREMITITES: 1+ edema. Objective - Vital Signs Vital signs: Vital Signs Temp 97.8 F 08/19/21 04:00 Pulse 68 08/19/21 09:01 Resp 16 08/19/21 04:00 BP 152/68 08/19/21 04:00 Pulse Ox 96 08/19/21 04:00 Intake & Output 08/18/21 08/19/21 08/19/21 18:59 06:59 18:59 Intake Total 745.426 95.985 Balance 745.426 95.985 Weight 104.3 kg 108.3 kg Intake: IV 10 Invasive Line 4 10 Intake, IV Titration 135.426 95.985 Amount Heparin Sod,Pork in 0.45% 135.426 95.985 NaCl 25,000 unit In 0.45 % NaCl 1 250ml.bag @ 9.38 UNITS/KG/HR 9.999 mls/hr IV .Q24H [facility] Rx#: [id number] Oral 600 Other: Voiding Method Toilet Urinal # Voids 1 1 - Labs CBC & Chem 7: 08/19/21 09:36 08/19/21 09:36 Labs: Abnormal Lab Results - Last 24 Hours (Table) 08/18/21 08/18/21 08/18/21 Range/Units 11:36 15:16 16:27 WBC (3.8-10.6) k/uL RBC (4.30-5.90) m/uL Hgb (13.0-17.5) gm/dL Hct (39.0-53.0) % Neutrophils # (1.3-7.7) k/uL APTT 56.0 H (22.0-30.0) sec Carbon Dioxide (22-30) mmol/L BUN (9-20) mg/dL Creatinine (0.66-1.25) mg/dL Glucose (74-99) mg/dL POC Glucose (mg/dL) 323 H 304 H (75-99) mg/dL Magnesium (1.6-2.3) mg/dL 08/18/21 08/19/21 08/19/21 Range/Units 20:14 05:52 05:53 WBC (3.8-10.6) k/uL RBC (4.30-5.90) m/uL Hgb (13.0-17.5) gm/dL Hct (39.0-53.0) % Neutrophils # (1.3-7.7) k/uL APTT (22.0-30.0) sec Carbon Dioxide (22-30) mmol/L BUN (9-20) mg/dL Creatinine (0.66-1.25) mg/dL Glucose (74-99) mg/dL POC Glucose (mg/dL) 229 H 54 L 60 L (75-99) mg/dL Magnesium (1.6-2.3) mg/dL 08/19/21 08/19/21 08/19/21 Range/Units 06:14 09:36 09:36 WBC 11.7 H (3.8-10.6) k/uL RBC 4.21 L (4.30-5.90) m/uL Hgb 12.3 L (13.0-17.5) gm/dL Hct 38.4 L (39.0-53.0) % Neutrophils # 9.5 H (1.3-7.7) k/uL APTT (22.0-30.0) sec Carbon Dioxide 31 H (22-30) mmol/L BUN 45 H (9-20) mg/dL Creatinine 1.66 H (0.66-1.25) mg/dL Glucose 65 L (74-99) mg/dL POC Glucose (mg/dL) 114 H (75-99) mg/dL Magnesium 2.6 H (1.6-2.3) mg/dL 08/19/21 Range/Units 09:36 WBC (3.8-10.6) k/uL RBC (4.30-5.90) m/uL Hgb (13.0-17.5) gm/dL Hct (39.0-53.0) % Neutrophils # (1.3-7.7) k/uL APTT 49.6 H (22.0-30.0) sec Carbon Dioxide (22-30) mmol/L BUN (9-20) mg/dL Creatinine (0.66-1.25) mg/dL Glucose (74-99) mg/dL POC Glucose (mg/dL) (75-99) mg/dL Magnesium (1.6-2.3) mg/dL Microbiology - Last 24 Hours (Table) 08/12/21 21:20 Blood Culture - Final Blood No Growth after 144 hours Assessment and Plan Plan: Assessment: 1. Chronic kidney disease stage IIIB with baseline creatinine in the range of 1.5-1.8. Renal function has been fairly stable this admission. 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 No hydronephrosis noted on kidney ultrasound. 2. V. fib arrest. 3. Nonischemic cardiomyopathy with ejection fraction of 25-30%. 4. Diabetes mellitus. 5. Hypokalemia from diuresis. Replaced. Better. 6. Volume overload. Improved with diuresis. Plan: Avoid nephrotoxins. Continue to monitor renal function and urine output. Cardiac cath being considered. Discussed with the patient risk of worsening renal failure, potentially requiring renal replacement therapy, post-IV contrast exposure. He understands. Plan for cardiac catheterization today. Lasix held today. Receiving hydration with normal saline at 50 mL an hour - Hep-Lock 6 hours post catheterization. Avoid aggressive IV hydration as patient is slightly hypervolemic. Discussed with cardiology. Resume Lasix tomorrow.
[2021-08-19] MEDS ORDERED: NITROGLYCERIN SL TABS 0.4 MG TAB SUBLINGUAL PRN (11:10)
[2021-08-19] MEDS ORDERED: ALPRAZolam 0.5 MG TAB PO PRN (11:10)
[2021-08-19] MEDS ORDERED: ALPRAZolam 0.25 MG TAB PO PRN (11:10)
[2021-08-19] MEDS ORDERED: ASPIRIN 325 MG TAB PO STA (11:10)
[2021-08-19 11:21] LABS: Glucose,Whole Blood 77 mg/dL (75-99)
--- NOTE | 2021-08-19 13:11 | P.PN ---
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 He follows with Dr. Cao. We are following the patient for co ngestive heart failure. Patient presents emergency department with shortness of breath. In the emergency department patient had episodes of ventricular tachycardia and ventricular fibrillation requiring CPR. And he was admitted to the ICU on admission. He was started on Amiodarone and did not have any further episodes of Vfib or Vtach. Echocardiogram revealed moderate reduced global LV systolic function with an EF 25%-30%, mild to moderate aortic stenosis. mild mitral regurgitation, mild t ricuspid regurgitation. 08/19/2021 Patient seen and examined at bedside, shortness of breath has improved. He denies any chest pain. Patient with -1550mL fluid balance over the past 24 hours. Vpaced on the monitor. He is currently maintained on PO Lasix 40mg daily, PO amiodarone 200mg BID, aspirin 80 mg daily, atorvastatin 80 mg nightly, IV heparin, metoprolol succinate 50 mg daily Sodium hemoglobin 12.3, platelets 259, sodium 137, potassium 4.4, BUN 45, serum creatinine 1.66 GENERAL: In no acute distress. NECK: Supple without JVD or thyromegaly. LUNGS: Breath sounds bilateral crackles to auscultation bilaterally. Respiration equal and unlabored. No wheezes, rales or rhonchi. HEART: Regular rate and rhythm without murmurs, rubs or gallops. S1 and S2 heard. EXTREMITIES: Normal range of motion, 2+ bilateral lower extremity edema. No clubbing or cyanosis. Peripheral pulses intact. ASSESSMENT Acute heart failure exacerbation with reduced ejection fraction Cardiomyopathy, ischemic vs non-ischemic Pneumonia Brief Ventricular tachycardia cardiac arrest in emergency department requiring CPR with return of spontaneous circulation Acute on Chronic kidney disease Mild to moderate triple vessel coronary artery disease from cath 05/2009 Type 2 diabetes Mild to moderate aortic stenosis Persistent atrial fibrillation on coumadin outpatient, currently on IV heparin Hypertension Dyslipidemia Sick sinus syndrome status post single chamber pacemaker implantation 2015 Mild Tricuspid regurgitation Mild mitral regurgitation Obstructive sleep apnea COPD History of prostate cancer PLAN Creatinine is stable. Plan for cardiac catheterization with Dr. Cao today. Hold AM dose PO Lasix, patient is being hydrated 50cc/hr per nephrology Nephrology following Monitor renal function and electrolytes Monitor I/Os, daily weights Continue amiodarone, aspirin, statin, metoprolol succinate Continue IV heparin at this time (coumadin is on hold) Check PT/INR in the morning I have discussed the risks, benefits and alternative therapies for the above- mentioned procedure and for both sedation/analgesia as well as necessary blood product administration, if indicated, as they pertain to this patient. The patient has indicated understanding and acceptance of the risks and procedures discussed. Questions have been answered appropriately and he is agreeable to m ove forward with the above-stated procedure. Further recommendations based on clinical course Nurse Practitioner note has been reviewed, I agree with a documented findings and plan of care. Patient was seen and examined. Objective - Vital Signs Vital signs: Vital Signs Temp 97.8 F 08/19/21 04:00 Pulse 68 08/19/21 09:01 Resp 16 08/19/21 04:00 BP 152/68 08/19/21 04:00 Pulse Ox 96 08/19/21 04:00 Intake & Output 08/18/21 08/19/21 08/19/21 18:59 06:59 18:59 Intake Total 745.426 95.985 Balance 745.426 95.985 Weight 104.3 kg 108.3 kg Intake: IV 10 Invasive Line 4 10 Intake, IV Titration 135.426 95.985 Amount Heparin Sod,Pork in 0.45% 135.426 95.985 NaCl 25,000 unit In 0.45 % NaCl 1 250ml.bag @ 9.38 UNITS/KG/HR 9.999 mls/hr IV .Q24H [facility] Rx#: [id number] Oral 600 Other: Voiding Method Toilet Urinal # Voids 1 1 - Labs CBC & Chem 7: 08/19/21 09:36 08/19/21 09:36 Labs: Abnormal Lab Results - Last 24 Hours (Table) 08/18/21 08/18/21 08/18/21 Range/Units 15:16 16:27 20:14 WBC (3.8-10.6) k/uL RBC (4.30-5.90) m/uL Hgb (13.0-17.5) gm/dL Hct (39.0-53.0) % Neutrophils # (1.3-7.7) k/uL APTT 56.0 H (22.0-30.0) sec Carbon Dioxide (22-30) mmol/L BUN (9-20) mg/dL Creatinine (0.66-1.25) mg/dL Glucose (74-99) mg/dL POC Glucose (mg/dL) 304 H 229 H (75-99) mg/dL Magnesium (1.6-2.3) mg/dL 08/19/21 08/19/21 08/19/21 Range/Units 05:52 05:53 06:14 WBC (3.8-10.6) k/uL RBC (4.30-5.90) m/uL Hgb (13.0-17.5) gm/dL Hct (39.0-53.0) % Neutrophils # (1.3-7.7) k/uL APTT (22.0-30.0) sec Carbon Dioxide (22-30) mmol/L BUN (9-20) mg/dL Creatinine (0.66-1.25) mg/dL Glucose (74-99) mg/dL POC Glucose (mg/dL) 54 L 60 L 114 H (75-99) mg/dL Magnesium (1.6-2.3) mg/dL 08/19/21 08/19/21 08/19/21 Range/Units 09:36 09:36 09:36 WBC 11.7 H (3.8-10.6) k/uL RBC 4.21 L (4.30-5.90) m/uL Hgb 12.3 L (13.0-17.5) gm/dL Hct 38.4 L (39.0-53.0) % Neutrophils # 9.5 H (1.3-7.7) k/uL APTT 49.6 H (22.0-30.0) sec Carbon Dioxide 31 H (22-30) mmol/L BUN 45 H (9-20) mg/dL Creatinine 1.66 H (0.66-1.25) mg/dL Glucose 65 L (74-99) mg/dL POC Glucose (mg/dL) (75-99) mg/dL Magnesium 2.6 H (1.6-2.3) mg/dL Microbiology - Last 24 Hours (Table) 08/12/21 21:20 Blood Culture - Final Blood No Growth after 144 hours
--- NOTE | 2021-08-19 13:12 | P.PN ---
Subjective Progress Note Date: 08/19/21 Principal diagnosis: Acute hypoxic respiratory failure secondary to acute exacerbation of diastolic congestive heart failure, underlying pneumonia is not entirely ruled out. Howev er the patient does have in addition to this acute exacerbation of COPD This is a very pleasant 86-year-old gentleman with a known history of Hussein's Palsy, hypertension, hyperlipidemia, diabetes mellitus, diastolic congestive heart failure, chronic kidney disease stage III, atrial fibrillation anti coagulated with warfarin status post permanent pacemaker implantation. He also has a history of severe obstructive sleep apnea that includes central apneas. He is on BiPAP at home at 18/14. He has a simple as fullface mask. He sees Dr. Quiroga for the sleep apnea. He follows with Dr. Roth in our office for COPD. He has a FEV1 value 64% of predicted. He is maintained on Wixella and albuter ol. For the past several days the patient has had complaints of increasing cough congestion and generalized weakness. He presented here to the emergency room yesterday for the same. While in the emergency department he suffered a brief V. tach/V. fib arrest with brief CPR initiated on amiodarone drip and heparin drip. Chest x-ray revealed evidence of interstitial edema and suspected congestive heart failure. No pleural effusions. No pneumothorax. There is noted cardiomegaly. Noted single wire pacemaker. He was placed on BiPAP and admitted to the intensive care unit. He is seen today in consultation. He is currently awake and alert in no acute distress. He continues with a loose c ongested cough. He denies any chest pain or palpitations. He's currently in atrial fibrillation with a paced ventricular rate at 60. He was on BiPAP 14/5 and 50% throughout the night. Currently on 5 L of oxygen with O2 saturation at 100%. He did present with a T-max of 102. Currently afebrile. White count 11.6. Hemoglobin 13.0. Platelets 167. INR 1.8. Sodium 136. Potassium 3.7. Bicarb 25. BUN 34. Creatinine 1.58. Glucose 255. Troponin 0.10, 0.09, 0.09. ProBNP 5510. Urinalysis clean. [place] virus not detected. Influenza screen negative. Echocardiogram pending. He was initiated on DuoNeb inhalations, Symbicort, ceftriaxone and azithromycin. He is also on Lasix 40 mg IV every 12 hours. Pro-calcitonin pending. 08/17/2021, patient has no specific complaints the patient is doing well. No chest pain. No shortness of breath. No angina. No palpitations. The patient remains on IV heparin for now and the patient is awaiting final clearance from nephrology to proceed with cardiac catheterization. Noted the patient did drop in the patient's left ventricular ejection fraction this is to be further evaluated by a cardiac catheterization. The patient remains on DuoNeb nebulized treatment [id number]. The patient on a prednisone burst taper. Resume medication remains unchanged. On today's blood work, the patient's white cell count of 12.3 with a hemoglobin of 12.2, PTT is therapeutic, creatinine stable at 1.64 with a BUN of 99, and his sodium level is at 139. He has a congested cough. He is taking Mucinex and Tessalon Perles. Remains on DuoNeb neb last treatment [id number]. He is afebrile. Reevaluated today on 08/18/21, patient is doing well today, does not seem to be in any distress, he is on room air, O2 sats is 95%. Last chest x-ray from 08/14/2021, showed mostly retrocardiac atelectasis, elevation of the left hemidiaphragm, and patchy density at the right lung base. No evidence of pulmonary edema on the chest x-ray from a few days ago. Patient is known to have history of cardiomyopathy and LV dysfunction, being followed by nephrology, and he is also being followed by cardiology, being considered for cardiac catheterization on 08/19/21. Creatinine remains elevated at 1.68, and that may be an issue to consider before cardiac catheterization patient remains on heparin, his PTT is 75.9. Reevaluated today on 08/19/21, patient is sitting in a bedside chair, he seems to be comfortable, not in distress, he is on room air. Supposedly he is scheduled to have cardiac catheterization today. And it is not clear to me what time will then be done. Apparently the tax specialist discussed the risks and benefits of the procedure with the patient, and he is agreeable to proceed. Labs from today were reviewed, creatinine today is 1.66, relatively stable and unchanging much. Objective - Vital Signs Vital signs: Vital Signs Temp 97.8 F 08/19/21 04:00 Pulse 68 08/19/21 09:01 Resp 16 08/19/21 04:00 BP 152/68 08/19/21 04:00 Pulse Ox 96 08/19/21 04:00 Intake & Output 08/18/21 08/19/21 08/19/21 18:59 06:59 18:59 Intake Total 745.426 95.985 Balance 745.426 95.985 Weight 104.3 kg 108.3 kg Intake: IV 10 Invasive Line 4 10 Intake, IV Titration 135.426 95.985 Amount Heparin Sod,Pork in 0.45% 135.426 95.985 NaCl 25,000 unit In 0.45 % NaCl 1 250ml.bag @ 9.38 UNITS/KG/HR 9.999 mls/hr IV .Q24H [facility] Rx#: [id number] Oral 600 Other: Voiding Method Toilet Urinal # Voids 1 1 - Exam Physical Exam: Revealed an 86-year-old white male in no distress, on room air. Head: Atraumatic, normocephalic. HEENT:[Neck is supple.] [No neck masses.] [No thyromegaly.] [No JVD.] Chest: [Diminished breath sounds at the bases no crackles or rhonchi or wheezes Cardiac Exam: Irregular irregular rhythm. [Normal S1 and S2, no S3 gallop, 2/6 systolic murmur throughout the precordium. Abdomen: [Soft, nontender, no megaly, no rebound, no guarding, normal bowel sounds.] Extremities: [No clubbing, no edema, no cyanosis.] Neurological Exam: [No focal neurologic deficit.] Alert and oriented 3. Psychiatric: Normal mood affect and normal mental status examination. Skin: No rashes - Labs CBC & Chem 7: 08/19/21 09:36 08/19/21 09:36 Labs: Abnormal Lab Results - Last 24 Hours (Table) 08/18/21 08/18/21 08/18/21 Range/Units 15:16 16:27 20:14 WBC (3.8-10.6) k/uL RBC (4.30-5.90) m/uL Hgb (13.0-17.5) gm/dL Hct (39.0-53.0) % Neutrophils # (1.3-7.7) k/uL APTT 56.0 H (22.0-30.0) sec Carbon Dioxide (22-30) mmol/L BUN (9-20) mg/dL Creatinine (0.66-1.25) mg/dL Glucose (74-99) mg/dL POC Glucose (mg/dL) 304 H 229 H (75-99) mg/dL Magnesium (1.6-2.3) mg/dL 08/19/21 08/19/21 08/19/21 Range/Units 05:52 05:53 06:14 WBC (3.8-10.6) k/uL RBC (4.30-5.90) m/uL Hgb (13.0-17.5) gm/dL Hct (39.0-53.0) % Neutrophils # (1.3-7.7) k/uL APTT (22.0-30.0) sec Carbon Dioxide (22-30) mmol/L BUN (9-20) mg/dL Creatinine (0.66-1.25) mg/dL Glucose (74-99) mg/dL POC Glucose (mg/dL) 54 L 60 L 114 H (75-99) mg/dL Magnesium (1.6-2.3) mg/dL 08/19/21 08/19/21 08/19/21 Range/Units 09:36 09:36 09:36 WBC 11.7 H (3.8-10.6) k/uL RBC 4.21 L (4.30-5.90) m/uL Hgb 12.3 L (13.0-17.5) gm/dL Hct 38.4 L (39.0-53.0) % Neutrophils # 9.5 H (1.3-7.7) k/uL APTT 49.6 H (22.0-30.0) sec Carbon Dioxide 31 H (22-30) mmol/L BUN 45 H (9-20) mg/dL Creatinine 1.66 H (0.66-1.25) mg/dL Glucose 65 L (74-99) mg/dL POC Glucose (mg/dL) (75-99) mg/dL Magnesium 2.6 H (1.6-2.3) mg/dL Microbiology - Last 24 Hours (Table) 08/12/21 21:20 Blood Culture - Final Blood No Growth after 144 hours Assessment and Plan Assessment: Impression: Acute hypoxic respiratory failure secondary to acute systolic congestive heart failure ejection fraction of 25-30%, improving. Severe cardiomyopathy and LV dysfunction may require further cardiac workup/ca rdiac catheterization. Brief cardiac arrest secondary to ventricular tachycardia requiring CPR History of triple-vessel coronary artery disease Type 2 diabetes Chronic atrial fibrillation Hypertension Dyslipidemia History of sick sinus syndrome Obstructive sleep apnea History of COPD presently inactive History of prostate cancer. Recommendation: Continue bronchodilators and diuretics. Continue IV Rocephin. Continue BiPAP at night as needed Continue Lasix. Today the Lasix is on hold until the patient undergoes cardiac catheterization Continue to monitor renal functioning Continue cardiac meds including metoprolol and amiodarone. Continue IV heparin, presently on hold for cardiac catheterization. We will follow. Time with Patient: Less than 30
[2021-08-19 13:57] LABS: Glucose,Whole Blood 143 mg/dL (75-99)
[2021-08-19] MEDS ORDERED: FUROSEMIDE 10 MG/ML 2 ML VIAL IV STA (14:55)
[2021-08-19 16:30] LABS: Glucose,Whole Blood 262 mg/dL (75-99)
--- NOTE | 2021-08-19 17:30 | P.PN ---
Subjective Progress Note Date: 08/19/21 (delayed charting seen at 1430) Principal diagnosis: shortness of breath Patient is an 86-year-old gentleman with a history of A. fib on Coumadin status post permanent pacemaker, COPD, HANNA on CPAP, diabetes, hypertension, dyslipidemia, and congestive heart failure who presented to the ER with complaints of shortness of breath. In the ER he underwent an extensive evaluation. He was found to be febrile with a T-max of 102.5. Laboratory analysis was remarkable for troponin of 0.1, BNP 5510. Patient was started on IV Lasix and antibiotics for possible pneumonia. Cardiology was consulted who recommended heparin drip for non-ST segment elevated myocardial infarction. Patient underwent a V. fib arrest in the ER which responded to several compressions. He was started on amiodarone and metoprolol. He was admitted to the ICU. Pulmonary was consulted. He had an echo which showed an EF of 25-30%. He has chronic kidney disease and cardio is determining appropriate timing of cardiac cath. Patient seen and examined at bedside. Cough and shortness of rbeath has worsened throughout the day, frustrated that he again did not get cath today. General: non toxic, no distress, appears at stated age Derm: warm, dry Head: atraumatic, normocephalic, symmetric Eyes: EOMI, no lid lag, anicteric sclera Mouth: no lip lesion, mucus membranes moist Cardiovascular: S1S2 reg, no murmur, positive posterior tibial pulse bilateral, Lungs:Ronchi b/l, + accessory muscle use, no conversational dyspnea Abdominal: soft, nontender to palpation, no guarding, no appreciable organomeg mitali Ext: no gross muscle atrophy, 2+ edema, no contractures Neuro: CN II-XI grossly intact, no focal neuro deficits Psych: Alert, oriented, appropriate affect Assessment/plan: Community Acquired Pneumonia - rocephin completed, completed zithromax - Pulm recs - COVID, Flu negative - Mucinex, tessalon Constipation -Bowel regiment NSTEMI New systolic cardiomyopathy with acute exacerbation, EF 25-30% V fib arrest - cardio recs: cath in AM - amio oral , heparin gtt - Lasix oral - metoprolol - will need ACEI/ARB on discharge if Cr stable, and consider aldactone. - Lasix X 1, then resume oral in AM, had been held earlier today for possible cath DM2 with hyperglycemia Neuropathy - levemir decreased, likely will need increase day time insulin as AM hypogl ycemia with lunch time hyperglycemia, but anticipate NPO for cath in AM so no changes at this time. - SSI - follow BS - A1C 8.5 - gabapentin CKD III - Cr appears at or near baseline - follow Cr - avoid nephrotoxic agents - nephro recs appreciated: discussed with patient risk of cath and recommends prehydration Chronic: HTN HLD BPH HANNA- CPAP DVT prophylaxis: Heparin gtt Discussed with: Patient, nursing Anticipated discharge: in 2-[address]: home A total of 35 minutes was spent on the care of this complex patient more than 50% of the time was spent in counseling and care coordination. Active Medications Acetaminophen (Acetaminophen Tab 325 Mg Tab) 650 mg PO Q6HR PRN PRN Reason: Mild Pain or Fever > 100.5 Albuterol/Ipratropium (Ipratropium-Albuterol 3 Ml Neb) 3 ml INHALATION RT-QID PRN PRN Reason: Shortness Of Breath Or Wheezing Albuterol/Ipratropium (Ipratropium-Albuterol 3 Ml Neb) 3 ml INHALATION RT-QID [facility] Last Admin: 08/19/21 15:28 Dose: 3 ml Documented by: Alprazolam (Alprazolam 0.25 Mg Tab) 0.25 mg PO Q6HR PRN PRN Reason: Mild Anxiety Alprazolam (Alprazolam 0.5 Mg Tab) 0.5 mg PO Q6HR PRN PRN Reason: Moderate Anxiety Amiodarone HCl (Amiodarone 200 Mg Tab) 200 mg PO BID [facility] Last Admin: 08/19/21 06:46 Dose: 200 mg Documented by: Aspirin (Aspirin 81 Mg) 81 mg PO DAILY [facility] Last Admin: 08/19/21 06:45 Dose: 81 mg Documented by: Atorvastatin Calcium (Atorvastatin 80 Mg Tab) 80 mg PO HS [facility] Last Admin: 08/18/21 21:31 Dose: 80 mg Documented by: Benzonatate (Benzonatate 100 Mg Cap) 100 mg PO TID PRN PRN Reason: Cough Last Admin: 08/19/21 06:59 Dose: 100 mg Documented by: Bicalutamide (Bicalutamide 50 Mg Tab) 50 mg PO DAILY [facility] Last Admin: 08/19/21 06:46 Dose: 50 mg Documented by: Budesonide/Formoterol Fumarate (Symbicort 80-4.5 Mcg Inhaler) 2 puff INHALATION RT-BID [facility] Last Admin: 08/19/21 08:49 Dose: 2 puff Documented by: Furosemide (Furosemide 40 Mg Tab) 40 mg PO DAILY [facility] Last Admin: 08/19/21 06:04 Dose: Not Given Documented by: Gabapentin (Gabapentin 300 Mg Cap) 300 mg PO TID [facility] Last Admin: 08/19/21 15:34 Dose: 300 mg Documented by: Guaifenesin (Guaifenesin 600 Mg Tablet.Er) 600 mg PO Q12HR [facility] Last Admin: 08/19/21 06:46 Dose: 600 mg Documented by: Heparin Sodium (Porcine) (Heparin Sodium 1,000 Un/Ml (10ml Vl)) 0 unit IV PER PROTOCOL PRN; Protocol PRN Reason: Low PTT Last Admin: 08/18/21 00:15 Dose: 2,662 unit Documented by: Heparin Sodium/Sodium Chloride (25,000 unit/ Sodium Chloride) 250 mls @ 9.999 mls/hr IV .Q24H [facility]; Protocol Last Admin: 08/19/21 08:59 Dose: 6.8 units/kg/hr, 7.248 mls/hr Documented by: Ceftriaxone Sodium 1 gm/ (Sodium Chloride) 50 mls @ 100 mls/hr IVPB Q24H [facility]; Protocol Last Admin: 08/19/21 05:08 Dose: 100 mls/hr Documented by: Heparin Sodium (Porcine) 10, (000 unit/ Sodium Chloride) 1,001 mls @ 999 mls/hr IRRIGATION ONCE PRN PRN Reason: INTRA-OP Stop: 08/20/21 23:00 Heparin Sodium (Porcine) 2,500 (unit/ Sodium Chloride) 250.5 mls @ 250 mls/hr IRRIGATION ONCE PRN PRN Reason: INTRA-OP Stop: 08/20/21 23:00 Sodium Chloride (Saline 0.9%) 1,000 mls @ 50 mls/hr IV .Q20H [facility] Last Admin: 08/19/21 07:00 Dose: 50 mls/hr Documented by: Insulin Aspart (Insulin Aspart (Novolog) 100 Unit/Ml Vial) 0 unit SQ ACHS [facility]; Protocol Last Admin: 08/19/21 11:48 Dose: Not Given Documented by: Insulin Aspart (Insulin Aspart (Novolog) 100 Unit/Ml Vial) 20 unit SQ AC-TID [facility]; Protocol Last Admin: 08/19/21 14:00 Dose: 10 unit Documented by: Insulin Detemir (Insulin Detemir (Levemir) 100 Unit/Ml Syr) 40 unit SQ HS [facility] Last Admin: 08/18/21 21:32 Dose: 40 unit Documented by: Melatonin (Melatonin 3 Mg Tablet) 3 mg PO HS [facility] Last Admin: 08/18/21 21:32 Dose: 3 mg Documented by: Metoprolol Succinate (Metoprolol Succinate (Er) 50 Mg Tab.Er.24h) 50 mg PO DAILY [facility] Last Admin: 08/19/21 06:46 Dose: 50 mg Documented by: Miscellaneous Information (Potassium Replacement Protocol 1 Each Misc) 1 each MISCELLANE DAILY PRN; Protocol PRN Reason: Per Protocol Naloxone HCl (Naloxone 0.4 Mg/Ml 1 Ml Vial) 0.2 mg IV Q2M PRN PRN Reason: Opioid Reversal Nitroglycerin (Nitroglycerin Sl Tabs 0.4 Mg Tab) 0.4 mg SUBLINGUAL Q5M PRN PRN Reason: Chest Pain Pantoprazole Sodium (Pantoprazole 40 Mg Tablet) 40 mg PO AC-BRKFST [facility] Last Admin: 08/19/21 06:46 Dose: 40 mg Documented by: Polyethylene Glycol (Polyethylene Glycol 3350 17 Gm Powd.Pack) 17 gm PO DAILY [facility] Last Admin: 08/19/21 06:05 Dose: Not Given Documented by: Prednisone (Prednisone 20 Mg Tab) 40 mg PO DAILY [facility] Last Admin: 08/19/21 06:46 Dose: 40 mg Documented by: Tamsulosin HCl (Tamsulosin 0.4 Mg Cap.Er.24h) 0.4 mg PO DAILY [facility] Last Admin: 08/19/21 06:46 Dose: 0.4 mg Documented by: Venlafaxine HCl (Venlafaxine Hcl 75 Mg Tab) 75 mg PO BID [facility] Last Admin: 08/19/21 06:46 Dose: 75 mg Documented by: Objective - Vital Signs Vital signs: Vital Signs Temp 98.2 F 08/19/21 15:30 Pulse 61 08/19/21 15:38 Resp 16 08/19/21 15:30 BP 131/74 05/03/22 15:30 Pulse Ox 95 08/19/21 15:30 Intake & Output 08/18/21 08/19/21 08/19/21 18:59 06:59 18:59 Intake Total 745.426 95.985 200 Balance 745.426 95.985 200 Weight 104.3 kg 108.3 kg Intake: IV 10 200 0.9 200 Invasive Line 4 10 Intake, IV Titration 135.426 95.985 Amount Heparin Sod,Pork in 0.45% 135.426 95.985 NaCl 25,000 unit In 0.45 % NaCl 1 250ml.bag @ 9.38 UNITS/KG/HR 9.999 mls/hr IV .Q24H [facility] Rx#: [id number] Oral 600 Other: Voiding Method Toilet Urinal # Voids 1 1 - Labs CBC & Chem 7: 08/19/21 09:36 08/19/21 09:36 Labs: Abnormal Lab Results - Last 24 Hours (Table) 08/18/21 08/19/21 08/19/21 Range/Units 20:14 05:52 05:53 WBC (3.8-10.6) k/uL RBC (4.30-5.90) m/uL Hgb (13.0-17.5) gm/dL Hct (39.0-53.0) % Neutrophils # (1.3-7.7) k/uL APTT (22.0-30.0) sec Carbon Dioxide (22-30) mmol/L BUN (9-20) mg/dL Creatinine (0.66-1.25) mg/dL Glucose (74-99) mg/dL POC Glucose (mg/dL) 229 H 54 L 60 L (75-99) mg/dL Magnesium (1.6-2.3) mg/dL 08/19/21 08/19/21 08/19/21 Range/Units 06:14 09:36 09:36 WBC 11.7 H (3.8-10.6) k/uL RBC 4.21 L (4.30-5.90) m/uL Hgb 12.3 L (13.0-17.5) gm/dL Hct 38.4 L (39.0-53.0) % Neutrophils # 9.5 H (1.3-7.7) k/uL APTT (22.0-30.0) sec Carbon Dioxide 31 H (22-30) mmol/L BUN 45 H (9-20) mg/dL Creatinine 1.66 H (0.66-1.25) mg/dL Glucose 65 L (74-99) mg/dL POC Glucose (mg/dL) 114 H (75-99) mg/dL Magnesium 2.6 H (1.6-2.3) mg/dL 08/19/21 08/19/21 08/19/21 Range/Units 09:36 13:55 16:28 WBC (3.8-10.6) k/uL RBC (4.30-5.90) m/uL Hgb (13.0-17.5) gm/dL Hct (39.0-53.0) % Neutrophils # (1.3-7.7) k/uL APTT 49.6 H (22.0-30.0) sec Carbon Dioxide (22-30) mmol/L BUN (9-20) mg/dL Creatinine (0.66-1.25) mg/dL Glucose (74-99) mg/dL POC Glucose (mg/dL) 143 H 262 H (75-99) mg/dL Magnesium (1.6-2.3) mg/dL Microbiology - Last 24 Hours (Table) 08/12/21 21:20 Blood Culture - Final Blood No Growth after 144 hours
[2021-08-19 18:43] LABS: Glucose,Whole Blood 210 mg/dL (75-99)
[2021-08-19 20:28] LABS: Glucose,Whole Blood 234 mg/dL (75-99)
[2021-08-19] MEDS: ATORVASTATIN 80 MG TAB PO SCH (21:40)
[2021-08-19] MEDS: INSULIN DETEMIR (LEVEMIR) 100 UNIT/ML SYR SQ SCH (21:41)
[2021-08-19] MEDS: MELATONIN 3 MG TABLET PO SCH (21:42)
[2021-08-20 06:30] LABS: Glucose,Whole Blood 46 mg/dL (75-99)
[2021-08-20] MEDS: INSULIN ASPART (NovoLOG) 100 UNIT/ML VIAL SQ SCH ×7 (06:42→20:59)
[2021-08-20 06:51] LABS: Glucose,Whole Blood 54 mg/dL (75-99)
[2021-08-20] MEDS ORDERED: DEXTROSE 50% SYRINGE 50 ML IVP ONE (06:52)
[2021-08-20] MEDS: PANTOPRAZOLE 40 MG TABLET PO SCH (06:57)
[2021-08-20] MEDS ORDERED: HEPARIN SODIUM,PORCINE 10,000 UNIT in SODIUM CHLORIDE 0.9% 1,000 ML IRRIGATION PRN (07:00)
[2021-08-20] MEDS ORDERED: HEPARIN SODIUM,PORCINE 2,500 UNIT in SODIUM CHLORIDE 0.9% 250 ML IRRIGATION PRN (07:00)
[2021-08-20 07:28] LABS: Glucose,Whole Blood 178 mg/dL (75-99)
[2021-08-20] MEDS: GABAPENTIN 300 MG CAP PO SCH ×3 (08:16→20:59)
[2021-08-20] MEDS: AMIODARONE 200 MG TAB PO SCH ×2 (08:16→20:59)
[2021-08-20] MEDS: METOPROLOL SUCCINATE (ER) 50 MG TAB.ER.24H PO SCH (08:16)
[2021-08-20] MEDS: guaiFENesin 600 MG TABLET.ER PO SCH ×2 (08:17→20:59)
[2021-08-20] MEDS: predniSONE 20 MG TAB PO SCH (08:17)
[2021-08-20] MEDS: FUROSEMIDE 40 MG TAB PO SCH (08:17)
[2021-08-20] MEDS: polyethylene glycoL 3350 17 GM POWD.PACK PO SCH (08:17)
[2021-08-20] MEDS: TAMSULOSIN 0.4 MG CAP.ER.24H PO SCH (08:17)
[2021-08-20] MEDS: ASPIRIN 81 MG PO SCH (08:17)
[2021-08-20] MEDS: VENLAFAXINE HCL 75 MG TAB PO SCH ×2 (08:25→21:07)
[2021-08-20] MEDS: BICALUTAMIDE 50 MG TAB PO SCH (08:25)
[2021-08-20] MEDS: SYMBICORT 80-4.5 MCG INHALER INHALATION SCH ×2 (08:41→21:55)
[2021-08-20] MEDS: IPRATROPIUM-ALBUTEROL 3 ML NEB INHALATION SCH ×4 (08:41→21:54)
[2021-08-20 09:39] LABS: Basophils # (A) 0.1 k/uL (0-0.2); Basophils % (A) 1 %; Eosinophils # (A) 0.2 k/uL (0-0.7); Eosinophils % (A) 1 %; HCT 38.3 % (39.0-53.0); HGB 11.8 gm/dL (13.0-17.5); Lymphocytes # (A) 1.6 k/uL (1.0-4.8); Lymphocytes % (A) 12 %; MCH 28.9 pg (25.0-35.0); MCHC 30.8 g/dL (31.0-37.0); MCV 93.9 fL (80.0-100.0); Mean Platelet Volume 9.8; Monocytes # (A) 0.8 k/uL (0-1.0); Monocytes % (A) 7 %; Neutrophils # (A) 9.6 k/uL (1.3-7.7); Neutrophils % (A) 77 %; Platelet Count 260 k/uL (150-450); RBC 4.08 m/uL (4.30-5.90); RDW 14.3 % (11.5-15.5); WBC 12.5 k/uL (3.8-10.6)
[2021-08-20 09:51] LABS: INR 1.1 (<1.2); Partial Thromboplastin Time 51.2 sec (22.0-30.0); Prothrombin Time 11.7 sec (9.0-12.0)
[2021-08-20 10:07] LABS: Calcium 8.7 mg/dL (8.4-10.2); Magnesium 2.6 mg/dL (1.6-2.3)
[2021-08-20 11:28] LABS: Glucose,Whole Blood 220 mg/dL (75-99)
[2021-08-20] MEDS ORDERED: FUROSEMIDE 10 MG/ML 10 ML VIAL IV STA (11:31)
[2021-08-20] MEDS ORDERED: VERAPAMIL 2.5 MG/ML 2 ML AMP ONE (11:38)
--- NOTE | 2021-08-20 11:41 | P.PN ---
Subjective Patient is seen in follow-up for acute kidney injury on chronic kidney disease. Renal function stable. Denies chest pain or shortness of breath. Hemodynamically stable. On room air. Good urine output. No changes overnight. Going for cardiac cath today. Vital signs are stable. General: Awake and alert. No acute distress. HEENT: Head exam is unremarkable. LUNGS: Breath sounds decreased. HEART: Rate and Rhythm are regular. ABDOMEN: Soft, no distention. EXTREMITITES: 1+ edema. Objective - Vital Signs Vital signs: Vital Signs Temp 97.4 F L 08/20/21 08:00 Pulse 60 08/20/21 08:48 Resp 18 08/20/21 08:00 BP 142/69 08/20/21 08:00 Pulse Ox 92 L 08/20/21 08:00 Intake & Output 08/19/21 08/20/21 08/20/21 18:59 06:59 18:59 Intake Total 200 250 Output Total 200 400 Balance 200 -200 -150 Weight 109.2 kg 109.2 kg Intake: IV 200 0.9 200 Oral 250 Output: Urine 200 400 Other: Voiding Method Toilet Urinal # Voids 1 - Labs CBC & Chem 7: 08/20/21 09:03 08/20/21 09:03 Labs: Abnormal Lab Results - Last 24 Hours (Table) 08/19/21 08/19/21 08/19/21 Range/Units 13:55 16:28 18:39 WBC (3.8-10.6) k/uL RBC (4.30-5.90) m/uL Hgb (13.0-17.5) gm/dL Hct (39.0-53.0) % MCHC (31.0-37.0) g/dL Neutrophils # (1.3-7.7) k/uL APTT (22.0-30.0) sec Carbon Dioxide (22-30) mmol/L BUN (9-20) mg/dL Creatinine (0.66-1.25) mg/dL Glucose (74-99) mg/dL POC Glucose (mg/dL) 143 H 262 H 210 H (75-99) mg/dL Magnesium (1.6-2.3) mg/dL 08/19/21 08/20/21 08/20/21 Range/Units 20:26 06:28 06:49 WBC (3.8-10.6) k/uL RBC (4.30-5.90) m/uL Hgb (13.0-17.5) gm/dL Hct (39.0-53.0) % MCHC (31.0-37.0) g/dL Neutrophils # (1.3-7.7) k/uL APTT (22.0-30.0) sec Carbon Dioxide (22-30) mmol/L BUN (9-20) mg/dL Creatinine (0.66-1.25) mg/dL Glucose (74-99) mg/dL POC Glucose (mg/dL) 234 H 46 L 54 L (75-99) mg/dL Magnesium (1.6-2.3) mg/dL 08/20/21 08/20/21 08/20/21 Range/Units 07:25 09:03 09:03 WBC (3.8-10.6) k/uL RBC (4.30-5.90) m/uL Hgb (13.0-17.5) gm/dL Hct (39.0-53.0) % MCHC (31.0-37.0) g/dL Neutrophils # (1.3-7.7) k/uL APTT 51.2 H (22.0-30.0) sec Carbon Dioxide 32 H (22-30) mmol/L BUN 45 H (9-20) mg/dL Creatinine 1.66 H (0.66-1.25) mg/dL Glucose 168 H (74-99) mg/dL POC Glucose (mg/dL) 178 H (75-99) mg/dL Magnesium 2.6 H (1.6-2.3) mg/dL 08/20/21 08/20/21 Range/Units 09:03 11:27 WBC 12.5 H (3.8-10.6) k/uL RBC 4.08 L (4.30-5.90) m/uL Hgb 11.8 L (13.0-17.5) gm/dL Hct 38.3 L (39.0-53.0) % MCHC 30.8 L (31.0-37.0) g/dL Neutrophils # 9.6 H (1.3-7.7) k/uL APTT (22.0-30.0) sec Carbon Dioxide (22-30) mmol/L BUN (9-20) mg/dL Creatinine (0.66-1.25) mg/dL Glucose (74-99) mg/dL POC Glucose (mg/dL) 220 H (75-99) mg/dL Magnesium (1.6-2.3) mg/dL Assessment and Plan Plan: Assessment: 1. Chronic kidney disease stage IIIB with baseline creatinine in the range of 1.5-1.8. Renal function has been fairly stable this admission. 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 No hydronephrosis noted on kidney ultrasound. 2. V. fib arrest. 3. Nonischemic cardiomyopathy with ejection fraction of 25-30%. 4. Diabetes mellitus. 5. Hypokalemia from diuresis. Replaced. 6. Volume overload. Improved with diuresis. Plan: Avoid nephrotoxins. Continue to monitor renal function and urine output. Cardiac cath today. Discussed with the patient risk of worsening renal failure, potentially requiring renal replacement therapy, post-IV contrast exposure. He understands. Gentle IV hydration with normal saline at 50 mL an hour for 4 hours pre-and 4 hours post cardiac catheterization. Avoid aggressive IV hydration as patient is hypervolemic. Discussed with cardiology. Change oral Lasix to IV. Will give dose tonight after IV fluids completed.
[2021-08-20] MEDS ORDERED: fentaNYL (PF) 50 MCG/ML 2 ML AMP ONE (11:52)
[2021-08-20] MEDS ORDERED: fentaNYL (PF) 50 MCG/ML 2 ML AMP IVP ONE (12:18)
[2021-08-20] MEDS ORDERED: LIDOCAINE 1% INJ 10MG/ML (5 ML VIAL-PF) SQ ONE (12:20)
[2021-08-20] MEDS ORDERED: IV FLUID CONTINUATION 1,000 ML IV ONE (12:21)
[2021-08-20] MEDS ORDERED: VERAPAMIL SYRINGE (5 MG/10 ML) INTRAARTER ONE (12:24)
[2021-08-20] MEDS: HEPARIN SODIUM 1,000 UN/ML (10ML VL) IV ONE ×2 (12:28→12:33)
[2021-08-20] MEDS ORDERED: CLOPIDOGREL 75 MG TAB ONE (12:35)
[2021-08-20] MEDS ORDERED: CLOPIDOGREL 75 MG TAB PO ONE (12:38)
--- NOTE | 2021-08-20 12:56 | P.PN ---
Subjective Progress Note Date: 08/20/21 Principal diagnosis: Acute exacerbation of systolic CHF and COPD This is a very pleasant 86-year-old gentleman with a known history of Hussein's Palsy, hypertension, hyperlipidemia, diabetes mellitus, diastolic congestive heart failure, chronic kidney disease stage III, atrial fibrillation anticoagulated with warfarin status post permanent pacemaker implantation. He also has a history of severe obstructive sleep apnea that includes central apneas. He is on BiPAP at home at 18/14. He has a simple as fullface mask. He sees Dr. Quiroga for the sleep apnea. He follows with Dr. Roth in our office for COPD. He has a FEV1 value 64% of predicted. He is maintained on Wixella and albuterol. For the past several days the patient has had complaints of increasing cough congestion and generalized weakness. He presented here to the emergency room yesterday for the same. While in the emergency department he suffered a brief V. tach/V. fib arrest with brief CPR initiated on amiodarone drip and heparin drip. Chest x-ray revealed evidence of interstitial edema and suspected congestive heart failure. No pleural effusions. No pneumothorax. There is noted cardiomegaly. Noted single wire pacemaker. He was placed on BiPAP and admitted to the intensive care unit. He is seen today in consultation. He is currently awake and alert in no acute distress. He continues with a loose congested cough. He denies any chest pain or palpitations. He's currently in atrial fibrillation with a paced ventricular rate at 60. He was on BiPAP 14/5 and 50% throughout the night. Currently on 5 L of oxygen with O2 saturation at 100%. He did present with a T-max of 102. Currently afebrile. White count 11.6. Hemoglobin 13.0. Platelets 167. INR 1.8. Sodium 136. Potassium 3.7. Bicarb 25. BUN 34. Creatinine 1.58. Glucose 255. Troponin 0.10, 0.09, 0.09. ProBNP 5510. Urinalysis clean. [place] virus not detected. Influenza screen negative. Echocardiogram pending. He was initiated on DuoNeb inhalations, Symbicort, ceftriaxone and azithromycin. He is also on Lasix 40 mg IV every 12 hours. Pro-calcitonin pending. 08/17/2021, patient has no specific complaints the patient is doing well. No chest pain. No shortness of breath. No angina. No palpitations. The patient remains on IV heparin for now and the patient is awaiting final clearance from nephrology to proceed with cardiac catheterization. Noted the patient did drop in the patient's left ventricular ejection fraction this is to be further evaluated by a cardiac catheterization. The patient remains on DuoNeb nebulized treatment [id number]. The patient on a prednisone burst taper. Resume medication remains unchanged. On today's blood work, the patient's white cell count of 12.3 with a hemoglobin of 12.2, PTT is therapeutic, creatinine stable at 1.64 with a BUN of 99, and his sodium level is at 139. He has a congested cough. He is taking Mucinex and Tessalon Perles. Remains on DuoNeb neb last treatment [id number]. He is afebrile. Reevaluated today on 08/18/21, patient is doing well today, does not seem to be in any distress, he is on room air, O2 sats is 95%. Last chest x-ray from 08/14/2021, showed mostly retrocardiac atelectasis, elevation of the left hemidiaphragm, and patchy density at the right lung base. No evidence of pulmonary edema on the chest x-ray from a few days ago. Patient is known to have history of cardiomyopathy and LV dysfunction, being followed by nephrology, and he is also being followed by cardiology, being considered for cardiac cath eterization on 08/19/21. Creatinine remains elevated at 1.68, and that may be an issue to consider before cardiac catheterization patient remains on heparin, his PTT is 75.9. Reevaluated today on 08/19/21, patient is sitting in a bedside chair, he seems to be comfortable, not in distress, he is on room air. Supposedly he is scheduled to have cardiac catheterization today. And it is not clear to me what time will then be done. Apparently the vice president global advertising sales discussed the risks and benefits of the procedure with the patient, and he is agreeable to proceed. Labs from today were reviewed, creatinine today is 1.66, relatively stable and unchanging much. On 08/20/2021 patient seen in follow-up on selective care unit, he is awake and alert, in no acute distress, breathing comfortably, he is on room air, pulse oximetry 92%, vital signs have been stable, patient has been tolerating ambulation in the hallway with physical therapy, tolerates activity feeling well, no complaints of chest pain. He remains on heparin infusion. Continues on oral prednisone, continues on Symbicort, Tessalon Perles, and DuoNeb. Today's labs have been reviewed, white blood cell count is 12.5, hemoglobin is 11.8, sodium is 137, potassium is 5.0, CO2 is 32, BUN is 45, creatinine is 1.6. Patient has been receiving intermittent doses of IV Lasix. No accurate I&O is available, his weight appears to be stable. Has mild lower extremity edema. No acute events overnight. No fever or chills Objective - Vital Signs Vital signs: Vital Signs Temp 97.4 F L 08/20/21 08:00 Pulse 60 08/20/21 08:48 Resp 18 08/20/21 08:00 BP 142/69 08/20/21 08:00 Pulse Ox 92 L 08/20/21 08:00 Intake & Output 08/19/21 08/20/21 08/20/21 18:59 06:59 18:59 Intake Total 200 250 Output Total 200 400 Balance 200 -200 -150 Weight 109.2 kg 109.2 kg Intake: IV 200 0.9 200 Oral 250 Output: Urine 200 400 Other: Voiding Method Toilet Urinal # Voids 1 - Exam GENERAL EXAM: Alert, very pleasant, 86-year-old white male, on room air with pulse ox of 92% comfortable in no apparent distress. HEAD: Normocephalic/atraumatic. EYES: Normal reaction of pupils, equal size. Conjunctiva pink, sclera white. NOSE: Clear with pink turbinates. THROAT: No erythema or exudates. NECK: No masses, no JVD, no thyroid enlargement, no adenopathy. CHEST: No chest wall deformity. Symmetrical expansion. LUNGS: Equal air entry with no crackles, wheeze, rhonchi or dullness. CVS: Regular rate and rhythm, normal S1 and S2, no gallops, no murmurs, no rubs ABDOMEN: Soft, nontender. No hepatosplenomegaly, normal bowel sounds, no guarding or rigidity. EXTREMITIES: No clubbing, mild lower extremity edema, no cyanosis, 2+ pulses and upper and lower extremities. MUSCULOSKELETAL: Muscle strength and tone normal. SPINE: No scoliosis or deformity SKIN: No rashes CENTRAL NERVOUS SYSTEM: Alert and oriented -3. No focal deficits, tone is normal in all 4 extremities. PSYCHIATRIC: Alert and oriented -3. Appropriate affect. Intact judgment and insight. - Labs CBC & Chem 7: 08/20/21 09:03 08/20/21 09:03 Labs: Abnormal Lab Results - Last 24 Hours (Table) 08/19/21 08/19/21 08/19/21 Range/Units 13:55 16:28 18:39 WBC (3.8-10.6) k/uL RBC (4.30-5.90) m/uL Hgb (13.0-17.5) gm/dL Hct (39.0-53.0) % MCHC (31.0-37.0) g/dL Neutrophils # (1.3-7.7) k/uL APTT (22.0-30.0) sec Carbon Dioxide (22-30) mmol/L BUN (9-20) mg/dL Creatinine (0.66-1.25) mg/dL Glucose (74-99) mg/dL POC Glucose (mg/dL) 143 H 262 H 210 H (75-99) mg/dL Magnesium (1.6-2.3) mg/dL 08/19/21 08/20/21 08/20/21 Range/Units 20:26 06:28 06:49 WBC (3.8-10.6) k/uL RBC (4.30-5.90) m/uL Hgb (13.0-17.5) gm/dL Hct (39.0-53.0) % MCHC (31.0-37.0) g/dL Neutrophils # (1.3-7.7) k/uL APTT (22.0-30.0) sec Carbon Dioxide (22-30) mmol/L BUN (9-20) mg/dL Creatinine (0.66-1.25) mg/dL Glucose (74-99) mg/dL POC Glucose (mg/dL) 234 H 46 L 54 L (75-99) mg/dL Magnesium (1.6-2.3) mg/dL 08/20/21 08/20/21 08/20/21 Range/Units 07:25 09:03 09:03 WBC (3.8-10.6) k/uL RBC (4.30-5.90) m/uL Hgb (13.0-17.5) gm/dL Hct (39.0-53.0) % MCHC (31.0-37.0) g/dL Neutrophils # (1.3-7.7) k/uL APTT 51.2 H (22.0-30.0) sec Carbon Dioxide 32 H (22-30) mmol/L BUN 45 H (9-20) mg/dL Creatinine 1.66 H (0.66-1.25) mg/dL Glucose 168 H (74-99) mg/dL POC Glucose (mg/dL) 178 H (75-99) mg/dL Magnesium 2.6 H (1.6-2.3) mg/dL 08/20/21 08/20/21 Range/Units 09:03 11:27 WBC 12.5 H (3.8-10.6) k/uL RBC 4.08 L (4.30-5.90) m/uL Hgb 11.8 L (13.0-17.5) gm/dL Hct 38.3 L (39.0-53.0) % MCHC 30.8 L (31.0-37.0) g/dL Neutrophils # 9.6 H (1.3-7.7) k/uL APTT (22.0-30.0) sec Carbon Dioxide (22-30) mmol/L BUN (9-20) mg/dL Creatinine (0.66-1.25) mg/dL Glucose (74-99) mg/dL POC Glucose (mg/dL) 220 H (75-99) mg/dL Magnesium (1.6-2.3) mg/dL Assessment and Plan Plan: Assessment: #1. Acute hypoxic respiratory failure secondary to acute exacerbation of systolic CHF with ejection fraction of 25-30%, improving #2. Severe cardiomyopathy and LV dysfunction that may require further cardiac workup/cardiac catheterization #3. Brief cardiac arrest secondary to ventricular tachycardia requiring CPR #4. History of triple-vessel coronary artery disease #5. Type 2 diabetes mellitus #6. Chronic atrial fibrillation #7. Hypertension #8. Dyslipidemia #9. History of sick sinus syndrome #10. Obstructive sleep apnea #11. History of COPD, #12. History of prostate cancer Plan: Patient is breathing comfortably Patient is maintaining stable O2 saturations on room air Diuretics per nephrology and cardiology We'll await further input from cardiology in regards to possibility of heart catheterization or medical therapy at this time Continue inhaled bronchodilators, continue oral prednisone I have personally seen and examined the patient, performed the documentation and the assessment and plan as written. Number of minutes spent on the visit: [10]
[2021-08-20] MEDS ORDERED: IOPAMIDOL-370 125ML BTL INJ ONE (13:11)
[2021-08-20] MEDS ORDERED: IOPAMIDOL-370 100ML BTL INJ ONE (13:21)
[2021-08-20] MEDS ORDERED: RX INFO: IV CONTRAST WAS GIVEN 1 EACH MISC MISCELLANE PRN (13:25)
[2021-08-20] MEDS ORDERED: ZOLPIDEM 5 MG TAB PO PRN (13:25)
[2021-08-20] MEDS ORDERED: NITROGLYCERIN SL TABS 0.4 MG TAB SUBLINGUAL PRN (13:25)
[2021-08-20] MEDS ORDERED: MAG HYDROX/AL HYDROX/SIMETH 30 ML CUP PO PRN (13:25)
[2021-08-20] MEDS ORDERED: ATROPINE SULFATE 0.1 MG/ML 10ML SYRINGE IV PRN (13:25)
[2021-08-20] MEDS ORDERED: SODIUM CHLORIDE 0.9% 1,000 ML in EMPTY BAG 1 BAG IV SCH (13:30)
--- NOTE | 2021-08-20 13:37 | P.CARDCATH ---
Date of Procedure: 08/20/21 Description of Procedure: Cardiac Catheterization: The patient is an 86-year-old male with a known history of hypertension, hyperlipidemia and diabetes mellitus who presented was progressive dyspnea, had an episode of ventricle tachycardia and cardiac arrest was mild elevation of troponin and decrease in his ejection fraction. Recommendations were made regarding cardiac catheterization, the risks and the complications were discussed with the patient who is in full understanding and agreement. Procedure Description: Patient was brought to cath laboratory technician in fasting semi-sedated state after receiving Fentanyl and Benadryl achieiving moderate conscious sedated state. Using Xylocaine Anesthesia and Seldinger technique, a 6-Cameroonian sheath was introduced in the right radial artery . Subsequently, selective coronary angiography performed using a 5-Cam[place]onian 3.5 bend Viki catheter. Multiple views of the coronary artery including hemiaxial views were obtained. The left Viki catheter was used to cross the aortic valve and LVEDP was calculated. Following that, catheter and sheath were removed. Hemostasis was obtained with deployment of TR band . There was no immediate complication. Patient was returned to room in stable condition. Of note, the patient received a total of 5000 units of intravenous heparin as well as intra-arterial verapamil. There was no immediate complications. Findings: Fluoroscopy: Calcification of the LAD was noted Left main: This is a short sized vessel, bifurcating into LAD and left circumflex, left main has no high-grade stenosis LAD: This is a large size vessel, reaching to the apex, giving rise to a moderate-sized diagonal branch proximally, the proximal and mid LAD has 20% plaque with no high-grade stenosis Left circumflex: This is a large nondominant vessel, giving rise to a large proximal obtuse marginal branch and the second obtuse marginal branch is small in caliber. The first obtuse marginal branch has a long area of stenosis up to 90% the rest of the vessel has no high-grade stenosis RCA: This is a dominant vessel, bifurcating distally to PDA and PLV, the mid RCA has a 20-30% plaque [Left] Ventriculogram: Was not performed Hemodynamics: There was no gradient across the aortic valve, LVEDP 15-20 mmHg Conclusion: 1. Calcified coronary arteries 2. Severe stenosis in OM 1 3. Mild disease in the RCA and LAD 4. Elevated LVEDP Recommendations: I have recommended to proceed with angioplasty and stenting of the OM1, for seizure as well as the risks and the complications were discussed with the patient who was in understanding and agreement.
--- NOTE | 2021-08-20 13:44 | P.CARDCATH ---
Date of Procedure: 08/20/21 Description of Procedure: PERCUTANEOUS TRANSLUMINAL CORONARY ANGIOPLASTY CLINICAL INFORMATION: The patient is a 86-year-old male with known history of hypertension, hyperlipidemia, diabetes mellitus and coronary artery disease who presented was progressive dyspnea and non-STEMI with evidence of ventricle tachycardia, he underwent cardiac catheterization and was found to have critical stenosis in the OM1. Recommendations were made regarding angioplasty and stenting, the procedure as well as the risks and the complications were discussed with the patient who was in understanding and agreement. PROCEDURE: A 6 Tamazight FL3.5 guiding catheter was introduced into the system. After cannulating the left main, a 0.014 BMW was advanced across the lesion and positioned distally. Attempts to advance a 3.0 X 23 mm Xience subha point were unsuccessful, the stent was removed and a 2.5 x 12 mm NC treck was advanced and inflations up to 10 yony were done. Attempt to advance the stent were unsuccessful after removing the stent and nontender 0.014 BMW wire was advanced To the first one in a declan fashion and in spite of that there was inability to advance the stent. At that point the second wire was removed and a Guidzella was advanced and there was inability to advance the stent in the OM 1. That st ent was removed and attempt to advance a 3.0 x 18 mm Xience were unsuccessful as well. At that point the guiding catheter, the balloon and the guidewire were removed and a 6-Tamazight EBU 3.75 guiding catheter was introduced and after cannulating the left main the 0.014 BMW wire was advanced in the OM 1, the Guidzella was advanced and then the 3.0 x 23 stent was advanced deployed and postdilated at 16 yony. After removing the balloon a 3.25 X 15 mm NC Treck balloon was advanced and one inflation at 14 yony was done. After the last inflation, after appropriate wait, the balloon and the guidewire were withdrawn back into the guiding catheter. Images were obtained and repeated. Those images reveal stable successful stenting. At that point, the guiding catheter, the balloon, and guidewire were removed. The sheath was removed. Hemostasis was obtained with deployment of a TR band. There were no immediate complications. The patient was returned to the room in stable condition. Of note, the patient received additional 2000 units of heparin as well as Plavix. His ACT was monitored. He had no chest discomfort or EKG changes with the inflations. RESULTS: Successful stenting of the OM1 with reduction of stenosis from 90% to 0 %. RECOMMENDATIONS: Patient will be continued on aspirin and Plavix for 1 week and aspirin will be stopped and he'll be continued on Plavix and anticoagulation. The findings and recommendations were discussed with the patient and he is in full understanding and agreement. Duration of sedation 63 minutes.
--- NOTE | 2021-08-20 15:39 | P.PN ---
Subjective Progress Note Date: 08/20/21 (delayed charting seen at 1100) Principal diagnosis: shortness of breath Patient is an 86-year-old gentleman with a history of A. fib on Coumadin status post permanent pacemaker, COPD, HANNA on CPAP, diabetes, hypertension, dyslipidemia, and congestive heart failure who presented to the ER with complaints of shortness of breath. In the ER he underwent an extensive evaluation. He was found to be febrile with a T-max of 102.5. Laboratory analysis was remarkable for troponin of 0.1, BNP 5510. Patient was started on IV Lasix and antibiotics for possible pneumonia. Cardiology was consulted who recommended heparin drip for non-ST segment elevated myocardial infarction. Patient underwent a V. fib arrest in the ER which responded to several compressions. He was started on amiodarone and metoprolol. He was admitted to the ICU. Pulmonary was consulted. He had an echo which showed an EF of 25-30%. He has chronic kidney disease and cardio is determining appropriate timing of cardiac cath. Patient seen and examined at bedside. Cough and shortness of rbeath has worsened throughout the day, frustrated that he again did not get cath today. General: non toxic, no distress, appears at stated age Derm: warm, dry Head: atraumatic, normocephalic, symmetric Eyes: EOMI, no lid lag, anicteric sclera Mouth: no lip lesion, mucus membranes moist Cardiovascular: S1S2 reg, no murmur, positive posterior tibial pulse bilateral, Lungs:Ronchi b/l, + accessory muscle use, no conversational dyspnea Abdominal: soft, nontender to palpation, no guarding, no appreciable organomeg mitali Ext: no gross muscle atrophy, 2+ edema, no contractures Neuro: CN II-XI grossly intact, no focal neuro deficits Psych: Alert, oriented, appropriate affect Assessment/plan: Community Acquired Pneumonia - rocephin completed, completed zithromax - Pulm recs - COVID, Flu negative - Mucinex, tessalon - if no wheezing in AM would stop prednisone Constipation -Bowel regiment NSTEMI New systolic cardiomyopathy with acute exacerbation, EF 25-30% V fib arrest - cardio recs: cath was completed today with stent to the OM: ASA and Plavix - amio oral - Lasix oral - metoprolol - will need ACEI/ARB on discharge if Cr stable, and consider aldactone. DM2 with hyperglycemia/hypoglycemia Neuropathy - levemir and fixed doses were decreased - SSI - follow BS - A1C 8.5 - gabapentin CKD III - Cr appears at or near baseline - follow Cr - avoid nephrotoxic agents - nephro recs appreciated: discussed with patient risk of cath and recommends prehydration Chronic: HTN HLD BPH HANNA- CPAP DVT prophylaxis: Heparin gtt Discussed with: Patient, nursing Anticipated discharge: in 2-[address]: home A total of 35 minutes was spent on the care of this complex patient more than 50% of the time was spent in counseling and care coordination. Active Medications Generic Name Dose Route Start Last Admin Trade Name Freq PRN Reason Stop Dose Admin Acetaminophen 650 mg 08/13/21 00:56 Acetaminophen Tab 325 Mg Tab PO Q6HR PRN Mild Pain or Fever > 100.5 Al Hydroxide/Mg Hydroxide 30 ml 08/20/21 13:25 Mag Hydrox/Al Hydrox/Simeth 30 Ml Cup PO Q4HR PRN Heartburn Albuterol/Ipratropium 3 ml 08/13/21 04:22 Ipratropium-Albuterol 3 Ml Neb INHALATION RT-QID PRN Shortness Of Breath Or Wheezing Albuterol/Ipratropium 3 ml 08/13/21 08:00 08/20/21 11:37 Ipratropium-Albuterol 3 Ml Neb INHALATION Not Given RT-QID JERRY Alprazolam 0.25 mg 08/19/21 11:10 Alprazolam 0.25 Mg Tab PO Q6HR PRN Mild Anxiety Alprazolam 0.5 mg 08/19/21 11:10 Alprazolam 0.5 Mg Tab PO Q6HR PRN Moderate Anxiety Amiodarone HCl 200 mg 08/13/21 11:15 08/20/21 08:16 Amiodarone 200 Mg Tab PO 200 mg BID JERRY Administration Aspirin 81 mg 08/21/21 09:00 Aspirin 81 Mg PO DAILY JERRY Atorvastatin Calcium 80 mg 08/14/21 21:00 08/19/21 21:40 Atorvastatin 80 Mg Tab PO 80 mg HS JERRY Administration Atropine Sulfate 0.5 mg 08/20/21 13:25 Atropine Sulfate 0.1 Mg/Ml 10ml Syringe IV ONCE PRN Symptomatic Bradycardia Benzonatate 100 mg 08/16/21 16:10 08/19/21 06:59 Benzonatate 100 Mg Cap PO 100 mg TID PRN Administration Cough Bicalutamide 50 mg 08/18/21 09:00 08/20/21 08:25 Bicalutamide 50 Mg Tab PO 50 mg DAILY JERRY Administration Bisacodyl 10 mg 08/20/21 10:18 Bisacodyl 10 Mg Supp RECTAL DAILY PRN Constipation Budesonide/Formoterol Fumarate 2 puff 08/13/21 08:00 08/20/21 08:41 Symbicort 80-4.5 Mcg Inhaler INHALATION 2 puff RT-BID JERRY Administration Clopidogrel Bisulfate 75 mg 08/21/21 09:00 Clopidogrel 75 Mg Tab PO DAILY [facility] Protocol Furosemide 40 mg 08/21/21 09:00 Furosemide 10 Mg/Ml 4 Ml Vial IV DAILY JERRY Gabapentin 300 mg 08/13/21 09:00 08/20/21 08:16 Gabapentin 300 Mg Cap PO 300 mg TID JERRY Administration Guaifenesin 600 mg 08/16/21 10:15 08/20/21 08:17 Guaifenesin 600 Mg Tablet.Er PO 600 mg Q12HR JERRY Administration Heparin Sodium (Porcine) 10, 1,001 mls @ 999 mls/hr 08/20/21 07:00 000 unit/ Sodium Chloride IRRIGATION 08/20/21 23:00 ONCE PRN INTRA-OP Heparin Sodium (Porcine) 2,500 250.5 mls @ 250 mls/hr 08/20/21 07:00 unit/ Sodium Chloride IRRIGATION 08/20/21 23:00 ONCE PRN INTRA-OP Sodium Chloride 1,000 mls @ 50 mls/hr 08/19/21 11:15 08/19/21 07:00 Saline 0.9% IV 50 mls/hr .Q20H JERRY Administration Sodium Chloride 1,000 ml/ IV 1,000 mls @ 109.2 mls/hr 08/20/21 13:30 Solution IV 08/20/21 17:31 .Q9H10M JERRY 1 ML/KG/HR Insulin Aspart 0 unit 08/13/21 07:30 08/20/21 06:42 Insulin Aspart (Novolog) 100 Unit/Ml Vial SQ Not Given ACHS [facility] Protocol Insulin Aspart 10 unit 08/20/21 12:30 Insulin Aspart (Novolog) 100 Unit/Ml Vial SQ AC-TID [facility] Insulin Detemir 25 unit 08/19/21 21:00 08/19/21 21:41 Insulin Detemir (Levemir) 100 Unit/Ml Syr SQ 25 unit HS JERRY Administration Melatonin 3 mg 08/16/21 21:00 08/19/21 21:42 Melatonin 3 Mg Tablet PO 3 mg HS JERRY Administration Metoprolol Succinate 50 mg 08/13/21 09:00 08/20/21 08:16 Metoprolol Succinate (Er) 50 Mg Tab.Er.24h PO 50 mg DAILY JERRY Administration Miscellaneous Information 1 each 08/13/21 06:38 Potassium Replacement Protocol 1 Each [facility] DAILY PRN Per Protocol Protocol Miscellaneous Information 1 each 08/20/21 13:25 Rx Info: Iv Contrast Was Given 1 Each [facility] 08/22/21 13:26 DAILY PRN Per Protocol Miscellaneous Information 0 each 08/20/21 13:34 [facility] per protocol Naloxone HCl 0.2 mg 08/13/21 00:56 Naloxone 0.4 Mg/Ml 1 Ml Vial IV Q2M PRN Opioid Reversal Nitroglycerin 0.4 mg 08/19/21 11:10 Nitroglycerin Sl Tabs 0.4 Mg Tab SUBLINGUAL Q5M PRN Chest Pain Nitroglycerin 0.4 mg 08/20/21 13:25 Nitroglycerin Sl Tabs 0.4 Mg Tab SUBLINGUAL Q5M PRN Chest Pain Pantoprazole Sodium 40 mg 08/13/21 07:30 08/20/21 06:57 Pantoprazole 40 Mg Tablet PO 40 mg AC-BRKFST JERRY Administration Polyethylene Glycol 17 gm 08/16/21 10:15 08/20/21 08:17 Polyethylene Glycol 3350 17 Gm Powd.Pack PO 17 gm DAILY JERRY Administration Prednisone 40 mg 08/16/21 09:00 08/20/21 08:17 Prednisone 20 Mg Tab PO 40 mg DAILY JERRY Administration Tamsulosin HCl 0.4 mg 08/13/21 09:00 08/20/21 08:17 Tamsulosin 0.4 Mg Cap.Er.24h PO 0.4 mg DAILY JERRY Administration Venlafaxine HCl 75 mg 08/17/21 21:00 08/20/21 08:25 Venlafaxine Hcl 75 Mg Tab PO 75 mg BID JERRY Administration Warfarin Sodium 5 mg 08/20/21 18:00 Warfarin 5 Mg Tab PO 08/20/21 18:01 ONCE@1800 ONE Protocol Zolpidem Tartrate 5 mg 08/20/21 13:25 Zolpidem 5 Mg Tab PO HS PRN Insomnia Objective - Vital Signs Vital signs: Vital Signs Temp 97.4 F L 08/20/21 08:00 Pulse 60 08/20/21 08:48 Resp 16 08/20/21 13:41 BP 151/62 08/20/21 13:41 Pulse Ox 96 08/20/21 13:41 Intake & Output 08/19/21 08/20/21 08/20/21 18:59 06:59 18:59 Intake Total 200 300 Output Total 200 400 Balance 200 -200 -100 Weight 109.2 kg 109.2 kg Intake: IV 200 50 0.9 200 Oral 250 Output: Urine 200 400 Other: Voiding Method Toilet Urinal # Voids 1 - Labs CBC & Chem 7: 08/20/21 09:03 08/20/21 09:03 Labs: Abnormal Lab Results - Last 24 Hours (Table) 08/19/21 08/19/21 08/19/21 Range/Units 16:28 18:39 20:26 WBC (3.8-10.6) k/uL RBC (4.30-5.90) m/uL Hgb (13.0-17.5) gm/dL Hct (39.0-53.0) % MCHC (31.0-37.0) g/dL Neutrophils # (1.3-7.7) k/uL APTT (22.0-30.0) sec Carbon Dioxide (22-30) mmol/L BUN (9-20) mg/dL Creatinine (0.66-1.25) mg/dL Glucose (74-99) mg/dL POC Glucose (mg/dL) 262 H 210 H 234 H (75-99) mg/dL Magnesium (1.6-2.3) mg/dL 08/20/21 08/20/21 08/20/21 Range/Units 06:28 06:49 07:25 WBC (3.8-10.6) k/uL RBC (4.30-5.90) m/uL Hgb (13.0-17.5) gm/dL Hct (39.0-53.0) % MCHC (31.0-37.0) g/dL Neutrophils # (1.3-7.7) k/uL APTT (22.0-30.0) sec Carbon Dioxide (22-30) mmol/L BUN (9-20) mg/dL Creatinine (0.66-1.25) mg/dL Glucose (74-99) mg/dL POC Glucose (mg/dL) 46 L 54 L 178 H (75-99) mg/dL Magnesium (1.6-2.3) mg/dL 08/20/21 08/20/21 08/20/21 Range/Units 09:03 09:03 09:03 WBC 12.5 H (3.8-10.6) k/uL RBC 4.08 L (4.30-5.90) m/uL Hgb 11.8 L (13.0-17.5) gm/dL Hct 38.3 L (39.0-53.0) % MCHC 30.8 L (31.0-37.0) g/dL Neutrophils # 9.6 H (1.3-7.7) k/uL APTT 51.2 H (22.0-30.0) sec Carbon Dioxide 32 H (22-30) mmol/L BUN 45 H (9-20) mg/dL Creatinine 1.66 H (0.66-1.25) mg/dL Glucose 168 H (74-99) mg/dL POC Glucose (mg/dL) (75-99) mg/dL Magnesium 2.6 H (1.6-2.3) mg/dL 08/20/21 Range/Units 11:27 WBC (3.8-10.6) k/uL RBC (4.30-5.90) m/uL Hgb (13.0-17.5) gm/dL Hct (39.0-53.0) % MCHC (31.0-37.0) g/dL Neutrophils # (1.3-7.7) k/uL APTT (22.0-30.0) sec Carbon Dioxide (22-30) mmol/L BUN (9-20) mg/dL Creatinine (0.66-1.25) mg/dL Glucose (74-99) mg/dL POC Glucose (mg/dL) 220 H (75-99) mg/dL Magnesium (1.6-2.3) mg/dL
[2021-08-20 16:40] LABS: Glucose,Whole Blood 376 mg/dL (75-99)
[2021-08-20] MEDS: bisacodyL 10 MG SUPP RECTAL PRN (17:53)
[2021-08-20] MEDS ORDERED: WARFARIN 5 MG TAB PO ONE (18:00)
[2021-08-20 20:44] LABS: Glucose,Whole Blood 400 mg/dL (75-99)
[2021-08-20] MEDS: SODIUM CHLORIDE 0.9% 1,000 ML IV SCH (20:48)
[2021-08-20] MEDS: MELATONIN 3 MG TABLET PO SCH (20:59)
[2021-08-20] MEDS: INSULIN DETEMIR (LEVEMIR) 100 UNIT/ML SYR SQ SCH (20:59)
[2021-08-20] MEDS: ATORVASTATIN 80 MG TAB PO SCH (20:59)
[2021-08-21] MEDS: SODIUM CHLORIDE 0.9% 1,000 ML IV SCH (04:59)
[2021-08-21 06:23] LABS: Glucose,Whole Blood 106 mg/dL (75-99)
[2021-08-21] MEDS: INSULIN ASPART (NovoLOG) 100 UNIT/ML VIAL SQ SCH ×4 (06:27→12:48)
[2021-08-21] MEDS: PANTOPRAZOLE 40 MG TABLET PO SCH (06:29)
[2021-08-21] MEDS: SYMBICORT 80-4.5 MCG INHALER INHALATION SCH (07:40)
[2021-08-21] MEDS: IPRATROPIUM-ALBUTEROL 3 ML NEB INHALATION SCH ×3 (07:40→15:06)
[2021-08-21] MEDS: predniSONE 20 MG TAB PO SCH (08:50)
[2021-08-21] MEDS: polyethylene glycoL 3350 17 GM POWD.PACK PO SCH (08:50)
[2021-08-21] MEDS: METOPROLOL SUCCINATE (ER) 50 MG TAB.ER.24H PO SCH (08:51)
[2021-08-21] MEDS: FUROSEMIDE 40 MG TAB PO SCH ×2 (08:51→15:49)
[2021-08-21] MEDS: TAMSULOSIN 0.4 MG CAP.ER.24H PO SCH (08:51)
[2021-08-21] MEDS: bisacodyL 10 MG SUPP RECTAL PRN (08:51)
[2021-08-21] MEDS: guaiFENesin 600 MG TABLET.ER PO SCH (08:52)
[2021-08-21] MEDS: GABAPENTIN 300 MG CAP PO SCH ×3 (08:52→15:48)
[2021-08-21] MEDS: AMIODARONE 200 MG TAB PO SCH (08:52)
[2021-08-21] MEDS ORDERED: FUROSEMIDE 10 MG/ML 4 ML VIAL IV SCH (09:00)
[2021-08-21] MEDS ORDERED: ASPIRIN 81 MG PO SCH (09:00)
[2021-08-21] MEDS ORDERED: CLOPIDOGREL 75 MG TAB PO SCH (09:00)
[2021-08-21] MEDS: BICALUTAMIDE 50 MG TAB PO SCH (09:02)
[2021-08-21] MEDS: VENLAFAXINE HCL 75 MG TAB PO SCH (09:02)
[2021-08-21] MEDS ORDERED: FUROSEMIDE 10 MG/ML 4 ML VIAL IV STA (09:09)
[2021-08-21 09:20] VITALS: RESP 20
--- NOTE | 2021-08-21 09:32 | P.PN ---
Subjective Patient is seen in follow-up for acute kidney injury on chronic kidney disease. Renal function stable as of yesterday. Denies chest pain or shortness of breath. Hemodynamically stable. On room air. Good urine output. Underwent cardiac catheterization on 08/20/2021 with stent placement. Vital signs are stable. General: Awake and alert. No acute distress. HEENT: Head exam is unremarkable. LUNGS: Breath sounds decreased. HEART: Rate and Rhythm are regular. ABDOMEN: Soft, no distention. EXTREMITITES: 1+ edema. Objective - Vital Signs Vital signs: Vital Signs Temp 97.6 F 08/21/21 08:00 Pulse 60 08/21/21 08:00 Resp 20 08/21/21 08:00 BP 148/72 08/21/21 08:00 Pulse Ox 95 08/21/21 08:00 Intake & Output 08/20/21 08/21/21 08/21/21 18:59 06:59 18:59 Intake Total 790 Output Total 400 Balance 390 Weight 109.2 kg 108.136 kg Intake: IV 50 Oral 740 Output: Urine 400 Other: Voiding Method Toilet Urinal # Voids 1 - Labs CBC & Chem 7: 08/20/21 09:03 08/20/21 09:03 Labs: Abnormal Lab Results - Last 24 Hours (Table) 08/20/21 08/20/21 08/20/21 Range/Units 09:03 09:03 09:03 WBC 12.5 H (3.8-10.6) k/uL RBC 4.08 L (4.30-5.90) m/uL Hgb 11.8 L (13.0-17.5) gm/dL Hct 38.3 L (39.0-53.0) % MCHC 30.8 L (31.0-37.0) g/dL Neutrophils # 9.6 H (1.3-7.7) k/uL APTT 51.2 H (22.0-30.0) sec Carbon Dioxide 32 H (22-30) mmol/L BUN 45 H (9-20) mg/dL Creatinine 1.66 H (0.66-1.25) mg/dL Glucose 168 H (74-99) mg/dL POC Glucose (mg/dL) (75-99) mg/dL Magnesium 2.6 H (1.6-2.3) mg/dL 08/20/21 08/20/21 08/20/21 Range/Units 11:27 16:38 20:43 WBC (3.8-10.6) k/uL RBC (4.30-5.90) m/uL Hgb (13.0-17.5) gm/dL Hct (39.0-53.0) % MCHC (31.0-37.0) g/dL Neutrophils # (1.3-7.7) k/uL APTT (22.0-30.0) sec Carbon Dioxide (22-30) mmol/L BUN (9-20) mg/dL Creatinine (0.66-1.25) mg/dL Glucose (74-99) mg/dL POC Glucose (mg/dL) 220 H 376 H 400 H (75-99) mg/dL Magnesium (1.6-2.3) mg/dL 08/21/21 Range/Units 06:21 WBC (3.8-10.6) k/uL RBC (4.30-5.90) m/uL Hgb (13.0-17.5) gm/dL Hct (39.0-53.0) % MCHC (31.0-37.0) g/dL Neutrophils # (1.3-7.7) k/uL APTT (22.0-30.0) sec Carbon Dioxide (22-30) mmol/L BUN (9-20) mg/dL Creatinine (0.66-1.25) mg/dL Glucose (74-99) mg/dL POC Glucose (mg/dL) 106 H (75-99) mg/dL Magnesium (1.6-2.3) mg/dL Assessment and Plan Plan: Assessment: 1. Chronic kidney disease stage IIIB with baseline creatinine in the range of 1.5-1.8. Renal function has been fairly stable this admission. 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 No hydronephrosis noted on kidney ultrasound. 2. V. fib arrest. 3. Nonischemic cardiomyopathy with ejection fraction of 25-30%. Status post cardiac catheterization with stent placement on 08/20/2021. 4. Diabetes mellitus. 5. Hypokalemia from diuresis. Replaced. 6. Volume overload. Improved with diuresis. Plan: Avoid nephrotoxins. Maintain Lasix. Monitor for contrast-induced acute kidney injury. Repeat BMP and magnesium level 2-3 days postdischarge. Follow up outpatient in 1 week. I advised patient to follow a low salt diet along with 40-45 oz fluid restrict ion per day. He was also advised to monitor his weight closely at home and to notify physician if notices worsening of edema or greater than 3 pound weight gain in 1 week duration.
[2021-08-21 10:10] LABS: Prothrombin Time 11.2 sec (9.0-12.0)
[2021-08-21 10:17] LABS: Calcium 8.8 mg/dL (8.4-10.2); Magnesium 2.5 mg/dL (1.6-2.3); Potassium 4.9 mmol/L (3.5-5.1)
[2021-08-21] MEDS ORDERED: NA PHOS,M-B/NA PHOS,DI-BA 133 ML ENEMA RECTAL STA (10:36)
[2021-08-21 11:14] VITALS: BMI 35.2
[2021-08-21 12:04] LABS: Glucose,Whole Blood 128 mg/dL (75-99)
[2021-08-21 12:48] VITALS: BP 130/69; TEMP 97.7
[2021-08-21] MEDS ORDERED: LACTULOSE 20 GM/30 ML CUP PO ONE (12:53)
--- NOTE | 2021-08-21 13:32 | P.PN ---
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 He follows with Dr. Cao. We are following the patient for co ngestive heart failure. Patient presents emergency department with shortness of breath. In the emergency department patient had episodes of ventricular tachycardia and ventricular fibrillation requiring CPR. And he was admitted to the ICU on admission. He was started on Amiodarone and did not have any further episodes of Vfib or Vtach. Echocardiogram revealed moderate reduced global LV systolic function with an EF 25%-30%, mild to moderate aortic stenosis. mild mitral regurgitation, mild t ricuspid regurgitation. 08/20/2021- patient underwent cardiac catheterization with Dr. Cao which revealed calcified coronary arteries, severe stenosis of OM1 90%, mild disease in RCA and LAD, elevated LVEDP. Patient underwent successful stenting of the OM1 08/21/2021 Patient seen and examined at bedside, shortness of breath has improved. He denies any chest pain. He has no complaints, feeling well. Vpaced on the monitor,HR 60s. renal function is stable. He is currently maintained on IV Lasix 40mg BID PO amiodarone 200mg BID, aspirin 80 mg daily, atorvastatin 80 mg nightly, Coumadin, metoprolol succinate 50 mg daily Last, sodium 137, potassium 4.9, BUN 38, serum creatinine 1.62 PHYSICAL EXAMINATION GENERAL: In no acute distress. NECK: Supple without JVD or thyromegaly. LUNGS: Breath sounds bilateral crackles to auscultation bilaterally. Respiration equal and unlabored. No wheezes, rales or rhonchi. HEART: Regular rate and rhythm without murmurs, rubs or gallops. S1 and S2 heard. EXTREMITIES: Normal range of motion, 1+ bilateral lower extremity edema. No clubbing or cyanosis. Peripheral pulses intact. SKIN:Right radial cath site clean dry intact 2+ pulses ASSESSMENT Acute heart failure exacerbation with reduced ejection fraction Ischemic cardiomyopathy Coronary artery disease PCI OM1 on 08/20/21 Pneumonia Brief Ventricular tachycardia cardiac arrest in emergency department requiring CPR with return of spontaneous circulation Acute on Chronic kidney disease Type 2 diabetes Mild to moderate aortic stenosis Persistent atrial fibrillation on coumadin outpatient, currently on IV heparin Hypertension Dyslipidemia Sick sinus syndrome status post single chamber pacemaker implantation 2016 Mild Tricuspid regurgitation Mild mitral regurgitation Obstructive sleep apnea COPD History of prostate cancer PLAN Creatinine is stable. Continue dual antiplatelet therapy with aspirin and Plavix IV Lasix given this morning, transiton to PO Lasix 40mg BID Decrease amiodarone 200mg daily Continue statin, metoprolol succinate Continue Coumadin Patient not on ACEI/ARB or spironolactone due to kidney function From a cardiology perspective, patient is stable. Follow up with Dr. Cao in 1 week. Nurse Practitioner note has been reviewed, I agree with a documented findings and plan of care. Patient was seen and examined. Objective - Vital Signs Vital signs: Vital Signs Temp 97.7 F 08/21/21 12:00 Pulse 63 08/21/21 12:00 Resp 20 08/21/21 12:00 BP 130/69 08/21/21 12:00 Pulse Ox 90 L 08/21/21 12:00 Intake & Output 08/20/21 08/21/21 08/21/21 18:59 06:59 18:59 Intake Total 790 300 Output Total 400 400 Balance 390 -100 Weight 109.2 kg 108.136 kg 108.136 kg Intake: IV 50 Oral 740 300 Output: Urine 400 400 Other: Voiding Method Toilet Urinal # Voids 1 - Labs CBC & Chem 7: 08/20/21 09:03 08/21/21 09:05 Labs: Abnormal Lab Results - Last 24 Hours (Table) 08/20/21 08/20/21 08/21/21 Range/Units 16:38 20:43 06:21 Carbon Dioxide (22-30) mmol/L BUN (9-20) mg/dL Creatinine (0.66-1.25) mg/dL Glucose (74-99) mg/dL POC Glucose (mg/dL) 376 H 400 H 106 H (75-99) mg/dL Magnesium (1.6-2.3) mg/dL 08/21/21 08/21/21 Range/Units 09:05 12:02 Carbon Dioxide 31 H (22-30) mmol/L BUN 38 H (9-20) mg/dL Creatinine 1.62 H (0.66-1.25) mg/dL Glucose 175 H (74-99) mg/dL POC Glucose (mg/dL) 128 H (75-99) mg/dL Magnesium 2.5 H (1.6-2.3) mg/dL
--- NOTE | 2021-08-21 15:03 | P.PN ---
Subjective Progress Note Date: 08/21/21 Principal diagnosis: Acute hypoxic respiratory failure secondary to acute exacerbation of diastolic congestive heart failure, underlying pneumonia is not entirely ruled out. Howev er the patient does have in addition to this acute exacerbation of COPD This is a very pleasant 86-year-old gentleman with a known history of Hussein's Palsy, hypertension, hyperlipidemia, diabetes mellitus, diastolic congestive heart failure, chronic kidney disease stage III, atrial fibrillation anti coagulated with warfarin status post permanent pacemaker implantation. He also has a history of severe obstructive sleep apnea that includes central apneas. He is on BiPAP at home at 18/14. He has a simple as fullface mask. He sees Dr. Quiroga for the sleep apnea. He follows with Dr. Roth in our office for COPD. He has a FEV1 value 64% of predicted. He is maintained on Wixella and albuter ol. For the past several days the patient has had complaints of increasing cough congestion and generalized weakness. He presented here to the emergency room yesterday for the same. While in the emergency department he suffered a brief V. tach/V. fib arrest with brief CPR initiated on amiodarone drip and heparin drip. Chest x-ray revealed evidence of interstitial edema and suspected congestive heart failure. No pleural effusions. No pneumothorax. There is noted cardiomegaly. Noted single wire pacemaker. He was placed on BiPAP and admitted to the intensive care unit. He is seen today in consultation. He is currently awake and alert in no acute distress. He continues with a loose c ongested cough. He denies any chest pain or palpitations. He's currently in atrial fibrillation with a paced ventricular rate at 60. He was on BiPAP 14/5 and 50% throughout the night. Currently on 5 L of oxygen with O2 saturation at 100%. He did present with a T-max of 102. Currently afebrile. White count 11.6. Hemoglobin 13.0. Platelets 167. INR 1.8. Sodium 136. Potassium 3.7. Bicarb 25. BUN 34. Creatinine 1.58. Glucose 255. Troponin 0.10, 0.09, 0.09. ProBNP 5510. Urinalysis clean. [place] virus not detected. Influenza screen negative. Echocardiogram pending. He was initiated on DuoNeb inhalations, Symbicort, ceftriaxone and azithromycin. He is also on Lasix 40 mg IV every 12 hours. Pro-calcitonin pending. 08/17/2021, patient has no specific complaints the patient is doing well. No chest pain. No shortness of breath. No angina. No palpitations. The patient remains on IV heparin for now and the patient is awaiting final clearance from nephrology to proceed with cardiac catheterization. Noted the patient did drop in the patient's left ventricular ejection fraction this is to be further evaluated by a cardiac catheterization. The patient remains on DuoNeb nebulized treatment [id number]. The patient on a prednisone burst taper. Resume medication remains unchanged. On today's blood work, the patient's white cell count of 12.3 with a hemoglobin of 12.2, PTT is therapeutic, creatinine stable at 1.64 with a BUN of 99, and his sodium level is at 139. He has a congested cough. He is taking Mucinex and Tessalon Perles. Remains on DuoNeb neb last treatment [id number]. He is afebrile. Reevaluated today on 08/18/21, patient is doing well today, does not seem to be in any distress, he is on room air, O2 sats is 95%. Last chest x-ray from 08/14/2021, showed mostly retrocardiac atelectasis, elevation of the left hemidiaphragm, and patchy density at the right lung base. No evidence of pulmonary edema on the chest x-ray from a few days ago. Patient is known to have history of cardiomyopathy and LV dysfunction, being followed by nephrology, and he is also being followed by cardiology, being considered for cardiac catheterization on 08/19/21. Creatinine remains elevated at 1.68, and that may be an issue to consider before cardiac catheterization patient remains on heparin, his PTT is 75.9. Reevaluated today on 08/19/21, patient is sitting in a bedside chair, he seems to be comfortable, not in distress, he is on room air. Supposedly he is scheduled to have cardiac catheterization today. And it is not clear to me what time will then be done. Apparently the garbage collection supervisor discussed the risks and benefits of the procedure with the patient, and he is agreeable to proceed. Labs from today were reviewed, creatinine today is 1.66, relatively stable and unchanging much. Reevaluated today on 08/21/2021, patient is doing better, he is asking if he could be discharged home. I will clear the patient for discharge as long as cardi ology will clear. Overall the patient is doing better, he has no active pulmonary symptoms he is on room air. Creatinine today is unchanged is 1.6 to Objective - Vital Signs Vital signs: Vital Signs Temp 97.7 F 08/21/21 12:00 Pulse 63 08/21/21 12:00 Resp 20 08/21/21 12:00 BP 130/69 08/21/21 12:00 Pulse Ox 90 L 08/21/21 12:00 Intake & Output 08/20/21 08/21/21 08/21/21 18:59 06:59 18:59 Intake Total 790 300 Output Total 400 400 Balance 390 -100 Weight 109.2 kg 108.136 kg 108.136 kg Intake: IV 50 Oral 740 300 Output: Urine 400 400 Other: Voiding Method Toilet Urinal # Voids 1 - Exam Physical Exam: Revealed an 86-year-old white male in no distress, on room air. Head: Atraumatic, normocephalic. HEENT:[Neck is supple.] [No neck masses.] [No thyromegaly.] [No JVD.] Chest: [Diminished breath sounds at the bases no crackles or rhonchi or wheezes Cardiac Exam: Irregular irregular rhythm. [Normal S1 and S2, no S3 gallop, 2/6 systolic murmur throughout the precordium. Abdomen: [Soft, nontender, no megaly, no rebound, no guarding, normal bowel sounds.] Extremities: [No clubbing, no edema, no cyanosis.] Neurological Exam: [No focal neurologic deficit.] Alert and oriented 3. Psychiatric: Normal mood affect and normal mental status examination. Skin: No rashes - Labs CBC & Chem 7: 08/20/21 09:03 08/21/21 09:05 Labs: Abnormal Lab Results - Last 24 Hours (Table) 08/20/21 08/20/21 08/21/21 Range/Units 16:38 20:43 06:21 Carbon Dioxide (22-30) mmol/L BUN (9-20) mg/dL Creatinine (0.66-1.25) mg/dL Glucose (74-99) mg/dL POC Glucose (mg/dL) 376 H 400 H 106 H (75-99) mg/dL Magnesium (1.6-2.3) mg/dL 08/21/21 08/21/21 Range/Units 09:05 12:02 Carbon Dioxide 31 H (22-30) mmol/L BUN 38 H (9-20) mg/dL Creatinine 1.62 H (0.66-1.25) mg/dL Glucose 175 H (74-99) mg/dL POC Glucose (mg/dL) 128 H (75-99) mg/dL Magnesium 2.5 H (1.6-2.3) mg/dL Assessment and Plan Assessment: Impression: Acute hypoxic respiratory failure secondary to acute systolic congestive heart failure ejection fraction of 25-30%, improving. Severe cardiomyopathy and LV dysfunction may require further cardiac workup/cardiac catheterization. Brief cardiac arrest secondary to ventricular tachycardia requiring CPR History of triple-vessel coronary artery disease Type 2 diabetes Chronic atrial fibrillation Hypertension Dyslipidemia History of sick sinus syndrome Obstructive sleep apnea History of COPD presently inactive History of prostate cancer. Status post PCI of the obtuse marginal 1, on 08/20/21 Recommendation: Continue bronchodilators and diuretics. Continue Lasix. Continue to monitor renal functioning Continue cardiac meds including metoprolol and amiodarone. Agree with discharge planning if cleared by cardiology and other consultants on the case Time with Patient: Less than 30
[2021-08-21 15:21] VITALS: PULSE 64
--- NOTE | 2021-08-21 15:45 | P.DS ---
Providers Date of admission: 08/13/21 02:45 Expected date of discharge: 08/21/21 Attending physician: Dolly Gordon MD Consults: 08/13/21 00:57 Consult Physician Urgent Consulting Provider: Brittney Gottlibe Consult Reason/Comments: CHF, elevated troponin Do you want consulting provider notified?: Yes 08/13/21 03:50 Consult Physician Stat Consulting Provider: Gemma Quiroga Consult Reason/Comments: ICU management Do you want consulting provider notified?: Already Contacted 08/16/21 15:09 Consult Physician Routine Consulting Provider: Juan Da Silva Consult Reason/Comments: CKD and need for cath Do you want consulting provider notified?: Yes 08/20/21 13:26 Consult Physician Routine Consulting Provider: Brittney Gottlieb Consult Reason/Comments: Post Interventional patient Do you want consulting provider notified?: Already Contacted Primary care physician: [facility] Course: History of present illness: Patient is an 86-year-old gentleman with a history of A. fib on Coumadin status post permanent pacemaker, COPD, HANNA on CPAP, diabetes, hypertension, dyslipidemia, and congestive heart failure who presented to the ER with complain ts of shortness of breath. In the ER he underwent an extensive evaluation. He was found to be febrile with a T-max of 102.5. Laboratory analysis was remarkable for troponin of 0.1, BNP 5510. Patient was started on IV Lasix and antibiotics for possible pneumonia. Cardiology was consulted who recommended heparin drip for non-ST segment elevated myocardial infarction. Patient underwent a V. fib arrest in the ER which responded to several compressions. He was started on amiodarone and metoprolol. He was admitted to the ICU. Pulmonary was consulted. He had an echo which showed an EF of 25-30%. He has chronic kidney disease and cardio is determining appropriate timing of cardiac cath. Patient seen and examined at bedside. Cough and shortness of rbeath has worsened throughout the day, frustrated that he again did not get cath today. Hospital course: NSTEMI New systolic cardiomyopathy with acute exacerbation, EF 25-30% V fib arrest - cardio recs: cath was completed August 20 with stent to the OM: ASA and Plavix - amio oral per cardiology - Lasix oral - metoprolol - No ROMAN inhibitor due to underlying renal failure -Cardiology cleared the patient for discharge without need for LifeVest. Community Acquired Pneumonia - rocephin completed, completed zithromax - Pulm recs - COVID, Flu negative - Mucinex, tessalon - if no wheezing in AM would stop prednisone Constipation -Bowel regiment DM2 with hyperglycemia/hypoglycemia Neuropathy - levemir and fixed doses were decreased - SSI - follow BS - A1C 8.5 - gabapentin CKD III - Cr appears at or near baseline - follow Cr - avoid nephrotoxic agents - nephro recs appreciated: discussed with patient risk of cath and recommends prehydration Chronic: HTN HLD BPH HANNA- CPAP Patient will be discharged to assisted home Physical examination discharge: General: non toxic, no distress, appears at stated age Derm: warm, dry Head: atraumatic, normocephalic, symmetric Eyes: EOMI, no lid lag, anicteric sclera Mouth: no lip lesion, mucus membranes moist Cardiovascular: S1S2 reg, no murmur, positive posterior tibial pulse bilateral, Lungs to auscultation bilaterally Abdominal: soft, nontender to palpation, no guarding, no appreciable organomegaly Ext: no gross muscle atrophy, 2+ edema, no contractures Neuro: CN II-XI grossly intact, no focal neuro deficits Psych: Alert, oriented, appropriate affect Patient Condition at Discharge: Stable Plan - Discharge Summary Discharge Rx Participant: No New Discharge Prescriptions: New Aspirin 81 mg PO DAILY 6 Days #6 tab Nitroglycerin Sl Tabs [Nitrostat] 0.4 mg SUBLINGUAL Q5M PRN #25 tab PRN Reason: Chest Pain Amiodarone [Cordarone] 200 mg PO DAILY 30 Days #30 tab Ipratropium-Albuterol Nebulize [Duoneb 0.5 mg-3 mg/3 ml Soln] 3 ml INHALATION RT-QID ml guaiFENesin [Mucinex] 600 mg PO Q12HR tablet Clopidogrel [Plavix] 75 mg PO DAILY 90 Days #90 tab Benzonatate [Tessalon Perles] 100 mg PO TID PRN cap PRN Reason: Cough Continue Venlafaxine HCl [Effexor] 75 mg PO BID Atorvastatin [Lipitor] 80 mg PO HS Furosemide [Lasix] 40 mg PO BID Ferrous Sulfate [Iron (65 MG Elemental)] 325 mg PO DAILY INSULIN ASPART (NovoLOG) [NovoLOG (formulary)] 25 unit SQ AC-TID Tamsulosin [Flomax] 0.4 mg PO DAILY Albuterol Nebulized [Ventolin Nebulized] 2.5 mg INHALATION RT-QID PRN PRN Reason: Shortness Of Breath Calcium/Vit D3 600mg/800iu 1 tab PO BID Bicalutamide [Casodex] 50 mg PO DAILY Warfarin [Coumadin] 5 mg PO SUTUWETHFRSA@2099 Warfarin [Coumadin] 2.5 mg PO MO@2099 Omeprazole 20 mg PO BID Metoprolol Succinate (ER) [Toprol XL] 50 mg PO DAILY Insulin Glargine [Lantus Vial] 55 unit SQ HS Fluticasone Propion/Salmeterol [Wixela 100-50 Inhub] 1 puff INHALATION RT-BID Potassium Chloride ER [K-Dur 20] 20 meq PO DAILY Gabapentin [Neurontin] 300 mg PO TID 30 Days #90 cap Discontinued amLODIPine [Norvasc] 5 mg PO DAILY hydroCHLOROthiazide 25 mg PO DAILY Discharge Medication List Atorvastatin [Lipitor] 80 mg PO HS 07/09/14 [History] Venlafaxine HCl [Effexor] 75 mg PO BID 07/09/14 [History] Furosemide [Lasix] 40 mg PO BID 05/17/15 [History] Ferrous Sulfate [Iron (65 MG Elemental)] 325 mg PO DAILY 08/06/15 [History] INSULIN ASPART (NovoLOG) [NovoLOG (formulary)] 25 unit SQ AC-TID 08/06/15 [History] Albuterol Nebulized [Ventolin Nebulized] 2.5 mg INHALATION RT-QID PRN 01/27/16 [History] Tamsulosin [Flomax] 0.4 mg PO DAILY 01/27/16 [History] Bicalutamide [Casodex] 50 mg PO DAILY 11/15/17 [History] Calcium/Vit D3 600mg/800iu 1 tab PO BID 11/15/17 [History] Warfarin [Coumadin] 5 mg PO SUTUWETHFRSA@209902/14/19 [History] Warfarin [Coumadin] 2.5 mg PO MO@2100 05/01/19 [History] Fluticasone Propion/Salmeterol [Wixela 100-50 Inhub] 1 puff INHALATION RT-BID 08/12/21 [History] Insulin Glargine [Lantus Vial] 55 unit SQ HS 08/12/21 [History] Metoprolol Succinate (ER) [Toprol XL] 50 mg PO DAILY 08/12/21 [History] Omeprazole 20 mg PO BID 08/12/21 [History] Potassium Chloride ER [K-Dur 20] 20 meq PO DAILY 08/12/21 [History] Amiodarone [Cordarone] 200 mg PO DAILY 30 Days #30 tab 08/21/21 [Rx] Aspirin 81 mg PO DAILY 6 Days #6 tab 08/21/21 [Rx] Benzonatate [Tessalon Perles] 100 mg PO TID PRN cap 08/21/21 [Rx] Clopidogrel [Plavix] 75 mg PO DAILY 90 Days #90 tab 08/21/21 [Rx] Gabapentin [Neurontin] 300 mg PO TID 30 Days #90 cap 08/21/21 [Rx] Ipratropium-Albuterol Nebulize [Duoneb 0.5 mg-3 mg/3 ml Soln] 3 ml INHALATION RT-QID ml 08/21/21 [Rx] Nitroglycerin Sl Tabs [Nitrostat] 0.4 mg SUBLINGUAL Q5M PRN #25 tab 08/21/21 [Rx] guaiFENesin [Mucinex] 600 mg PO Q12HR tablet 08/21/21 [Rx] Follow up Appointment(s)/Referral(s): Candelario Cao MD [STAFF PHYSICIAN] - 1 Week [facility] [Primary Care Provider] - 1-2 days Activity/Diet/Wound Care/Special Instructions: Cardiology Instructions After Cardiac Catheterization with Stent Placement: 1. Aspirin as anti-platelet therapy- Please only take for one week 08/21/2021- 08/27/2021, Then Stop. -This is because you are also on Coumadin anticoagulation. And Plavix for your stent that was placed. - Aspirin lessens the chance of heart attack and stroke. It helps prevent blood clots from forming, allowing the blood to flow more easily. You will take one 81 mg (non-enteric coated) tablet daily for a total of 7 days. 2. Anti-platelet Therapy. -You will take ONE of the following anti-platelet medications daily. This will help prevent a clot from forming in your stent: Plavix (clopidogrel) -You will need to take your anti-platelet medicine every day for 12 months -Please consult your heart doctor before you stop this medicine. -They may want you to continue for a longer period of time. 3. Statins -A statin medication lowers cholesterol levels in the blood. This helps slow the progression of heart disease. - Please take your statin medication as prescribed by your doctor. -You may be taking one of the following statins: Lipitor (atorvastatin) Other Medications: -Beta ramin (Metoprolol). Is a medication that protects your heart from stress and can prevent future heart attacks. It can slow your heart rate. It can take weeks for your body to get used to a beta ramin. The dose may need to be changed a few times as your body adjusts Do not stop taking these medicines without talking to your doctor. -Take all other medicines as directed by your doctor. Do not take any extra aspirin or ibuprofen. They can increase your risk of bleeding. Many [id number] drugs contain aspirin. If you are unsure about what the drug contains, check with your pharmacist before taking it. -For mild discomfort, you may take plain Tylenol (acetaminophen). Follow dose directions, but do not take more than 4,000 mg of acetaminophen in 24 hours. Contact your doctor right away or go to the nearest hospital Emergency Room if you have: -Severe angina or chest pain. (This may be a sign of a problem with your stent.) -Excessive bruising, blood in urine/stool or black tarry stools. Healthy LifeStyle It is important to keep a heart healthy lifestyle. This can improve your long- term health and decrease your risk for heart attacks. -Quitting tobacco: the most important thing you can do to protect your health. -Managing your blood cholesterol, blood pressure, weight, and stress. -The importance of regular exercise. -Heart Healthy Diet: Include more plants in your diet. Eat lots of fresh vegetables and fresh fruits. Eat good fats: plant based oils, avocado, nuts, beans, legumes. Eat more seafood. Limit Meat. Switch to whole grains. -Avoid fried foods and animal fats and processed meats Follow up with [facility] [place]- Dr. Cao 1 week prior to Discharge [phone] Discharge Disposition: TRANSFER TO [facility]
[2021-08-21] MEDS ORDERED: WARFARIN 5 MG TAB PO ONE (18:00)
[2021-08-22] MEDS ORDERED: AMIODARONE 200 MG TAB PO SCH (09:00)
== END 2021-08-21 16:53 | DRG 246 ==
LOC: EC 14:15 → 3SCARD 08-13 02:45 → 2SICU 08-13 03:50 → 3SCARD 08-15 12:19
PROVIDERS: ADMIT Internal Medicine; ATTEND Internal Medicine
PROC: 5A12012 Performance of Cardiac Output, Single, Manual (ICD-10-PCS; 2021-08-13)
PROC: 5A09357 Assistance with Respiratory Ventilation, Less than 24 Consecutive Hours, Continuous Positive Airway Pressure (ICD-10-PCS; 2021-08-14)
PROC: 4A023N7 Measurement of Cardiac Sampling and Pressure, Left Heart, Percutaneous Approach (ICD-10-PCS; 2021-08-20)
PROC: B2111ZZ Fluoroscopy of Multiple Coronary Arteries using Low Osmolar Contrast (ICD-10-PCS; 2021-08-20)
PROC: 027034Z Dilation of Coronary Artery, One Artery with Drug-eluting Intraluminal Device, Percutaneous Approach (ICD-10-PCS; principal; 2021-08-20 07:30)
DX: I21.4 Non-ST elevation (NSTEMI) myocardial infarction (principal); J96.01 Acute respiratory failure with hypoxia; I50.33 Acute on chronic diastolic (congestive) heart failure; I46.2 Cardiac arrest due to underlying cardiac condition; J18.9 Pneumonia, unspecified organism; I49.01 Ventricular fibrillation; I13.0 Hypertensive heart and chronic kidney disease with heart failure and stage 1 through stage 4 chronic kidney disease, or unspecified chronic kidney disease; I48.21 Permanent atrial fibrillation; N17.9 Acute kidney failure, unspecified; J44.0 Chronic obstructive pulmonary disease with (acute) lower respiratory infection; J44.1 Chronic obstructive pulmonary disease with (acute) exacerbation; I42.8 Other cardiomyopathies; N18.32 Chronic kidney disease, stage 3b; I08.3 Combined rheumatic disorders of mitral, aortic and tricuspid valves; E11.22 Type 2 diabetes mellitus with diabetic chronic kidney disease; I25.10 Atherosclerotic heart disease of native coronary artery without angina pectoris; E11.40 Type 2 diabetes mellitus with diabetic neuropathy, unspecified; E66.01 Morbid (severe) obesity due to excess calories; E78.5 Hyperlipidemia, unspecified; Z20.822 Contact with and (suspected) exposure to COVID-19; G47.33 Obstructive sleep apnea (adult) (pediatric); I49.5 Sick sinus syndrome; N40.0 Benign prostatic hyperplasia without lower urinary tract symptoms; E11.65 Type 2 diabetes mellitus with hyperglycemia; F41.9 Anxiety disorder, unspecified; I25.5 Ischemic cardiomyopathy; G51.0 Bell's palsy; E87.6 Hypokalemia; K59.00 Constipation, unspecified; Z68.35 Body mass index [BMI] 35.0-35.9, adult; Z95.0 Presence of cardiac pacemaker; Z95.5 Presence of coronary angioplasty implant and graft; Z85.828 Personal history of other malignant neoplasm of skin; Z85.46 Personal history of malignant neoplasm of prostate; I25.2 Old myocardial infarction; Z79.01 Long term (current) use of anticoagulants; Z79.4 Long term (current) use of insulin; Z79.51 Long term (current) use of inhaled steroids; Z79.52 Long term (current) use of systemic steroids; Z79.82 Long term (current) use of aspirin; Z79.899 Other long term (current) drug therapy; Z87.891 Personal history of nicotine dependence; Z92.3 Personal history of irradiation; Z98.42 Cataract extraction status, left eye; Z98.41 Cataract extraction status, right eye; Z83.3 Family history of diabetes mellitus; Z84.1 Family history of disorders of kidney and ureter
CPT/HCPCS: 36415; 36600; 71045; 71046; 74176; 76770; 80048; 80053; 81001; 82805; 83036; 83605; 83735; 83880; 84132; 84145; 84484; 85025; 85027; 85610; 85730; 87040; 87502; 87635; 93005; 93306; 93458; 94640; 94660; 94760; 96365; 96368; 96375; 99285

== ENCOUNTER 2021-11-26 08:36 | Emergency (ER) | payer MEDICARE, BC ==
[2021-11-26 08:52] VITALS: BP 155/80; PULSE 60; RESP 20; TEMP 98
[2021-11-26] MEDS ORDERED: LIDOCAINE/EPINEPHR/TETRACAINE 5 ML BOTTLE TOPICAL ONE (10:07)
--- NOTE | 2021-11-26 10:30 | ED ---
Wound/Laceration HPI - General Chief Complaint: Wound/Laceration Stated Complaint: fall, skin tear on arm Time Seen by Provider: 11/26/21 09:07 Source: patient Mode of arrival: wheelchair Limitations: no limitations - History of Present Illness Initial Comments: Patient is an 86-year-old male presenting with chief complaint of wound that won't stop bleeding. Patient is currently on warfarin and Plavix. Patient sustained a skin tear to the left arm about one week ago. Throughout the week he has had she is on and off with recurrent bleeding. They have tried applying direct pressure at home and keeping sustained pressure with a pressure dressing, this has not been successful in controlling the bleeding. He denies any recent head injury. - Related Data Home Medications Medication Instructions Recorded Confirmed Atorvastatin [Lipitor] 80 mg PO HS 07/09/14 08/12/21 Venlafaxine HCl [Effexor] 75 mg PO BID 07/09/14 08/12/21 Furosemide [Lasix] 40 mg PO BID 05/17/15 08/12/21 Ferrous Sulfate [Iron (65 MG 325 mg PO DAILY 08/06/15 08/12/21 Elemental)] INSULIN ASPART (NovoLOG) [NovoLOG 25 unit SQ AC-TID 08/06/15 08/12/21 (formulary)] Albuterol Nebulized [Ventolin 2.5 mg INHALATION RT-QID PRN 01/27/16 08/12/21 Nebulized] Tamsulosin [Flomax] 0.4 mg PO DAILY 01/27/16 08/12/21 Bicalutamide [Casodex] 50 mg PO DAILY 11/15/17 08/12/21 Calcium/Vit D3 600mg/800iu 1 tab PO BID 11/15/17 08/12/21 Warfarin [Coumadin] 5 mg PO SUTUWETHFRSA@2100 02/14/19 08/12/21 Warfarin [Coumadin] 2.5 mg PO MO@2100 05/01/19 08/12/21 Fluticasone Propion/Salmeterol 1 puff INHALATION RT-BID 08/12/21 08/12/21 [Wixela 100-50 Inhub] Insulin Glargine [Lantus Vial] 55 unit SQ HS 08/12/21 08/12/21 Metoprolol Succinate (ER) [Toprol 50 mg PO DAILY 08/12/21 08/12/21 XL] Omeprazole 20 mg PO BID 08/12/21 08/12/21 Potassium Chloride ER [K-Dur 20] 20 meq PO DAILY 08/12/21 08/12/21 Previous Rx's Medication Instructions Recorded Amiodarone [Cordarone] 200 mg PO DAILY 30 Days #30 tab 08/21/21 Aspirin 81 mg PO DAILY 6 Days #6 tab 08/21/21 Benzonatate [Tessalon Perles] 100 mg PO TID PRN cap 08/21/21 Clopidogrel [Plavix] 75 mg PO DAILY 90 Days #90 tab 08/21/21 Gabapentin [Neurontin] 300 mg PO TID 30 Days #90 cap 08/21/21 Ipratropium-Albuterol Nebulize 3 ml INHALATION RT-QID ml 08/21/21 [Duoneb 0.5 mg-3 mg/3 ml Soln] Nitroglycerin Sl Tabs [Nitrostat] 0.4 mg SUBLINGUAL Q5M PRN #25 tab 08/21/21 guaiFENesin [Mucinex] 600 mg PO Q12HR tablet 08/21/21 Allergies Allergy/AdvReac Type Severity Reaction Status Date / Time adhesive Allergy blisters, Verified 11/26/21 08:52 skin peels ibuprofen [From Motrin] AdvReac Abdominal Verified 11/26/21 08:52 Pain Review of Systems ROS Statement: Those systems with pertinent positive or pertinent negative responses have been documented in the HPI. ROS Other: All systems not noted in ROS Statement are negative. Past Medical History Past Medical History: Atrial Fibrillation, Cancer, COPD, Diabetes Mellitus, Hyperlipidemia, Pneumonia, Prostate Disorder, Skin Disorder, Sleep Apnea/CPAP/BIPAP Additional Past Medical History / Comment(s): bowel perforation 2006, prostate CA, skin cancer spots removed from nose and scalp, hx migraines yr ago, atrial fibrillation status post pacemaker implantation, osteoarthritis, History of Any Multi-Drug Resistant Organisms: None Reported Past Surgical History: Back Surgery, Bowel Resection, Cardiac Ablation, Heart Catheterization, Orthopedic Surgery, Pacemaker Additional Past Surgical History / Comment(s): back surgery x2 (has cage), bowel surgery for perforation with colostomy/colostomy later reversed, nasal surgery for polyps, otoniel cataracts, arthroscopy rt knee Past Anesthesia/Blood Transfusion Reactions: No Reported Reaction Type of Cardiac Device: Permanent Pacemaker Device Placement Date:: 2013 Past Psychological History: Anxiety Smoking Status: Former smoker Past Alcohol Use History: None Reported Past Drug Use History: None Reported - Past Family History Mother Family Medical History: Cancer Additional Family Medical History / Comment(s): brain Sister(s) Family Medical History: Cancer Additional Family Medical History / Comment(s): breast Father Family Medical History: Diabetes Mellitus, Renal Disease General Exam Limitations: no limitations General appearance: alert, in no apparent distress Head exam: Present: atraumatic, normocephalic, normal inspection Eye exam: Present: normal appearance, EOMI. Absent: scleral icterus, periorbital swelling Neck exam: Present: normal inspection Respiratory exam: Present: normal lung sounds bilaterally. Absent: respiratory distress, wheezes, rales, rhonchi, stridor Cardiovascular Exam: Present: regular rate, normal rhythm, normal heart sounds. Absent: systolic murmur, diastolic murmur, rubs, gallop, clicks GI/Abdominal exam: Present: soft. Absent: distended, tenderness, guarding, rebound, rigid Neurological exam: Present: alert, oriented X3, CN II-XII intact Psychiatric exam: Present: normal affect, normal mood Skin exam: Present: warm, dry, other (ecchymosis, skin tear 3 cm R forearm) Course Vital Signs 11/26/21 08:49 Temperature 98 F Pulse Rate 60 Respiratory 20 Rate Blood Pressure 155/80 O2 Sat by Pulse 99 Oximetry Medical Decision Making - Medical Decision Making Patient is an 86-year-old male presenting with chief complaint of "cut my arm won't stop bleeding". Patient is on warfarin, he cut his arm on the edge of his motorized wheelchair about a week ago. Patient states throughout the week it has been bleeding on and off again. Patient's INR was last checked about 2 weeks ago according to his . At this time patient denies any other symptoms, denies chest pain, shortness of breath, abdominal pain, recent fall or head injury, recent trauma, vomiting, dizziness, vision or hearing changes. On examination there is a 3 similar superficial skin tear to the left arm, remainder of physical exam is WNL. I first attempted a pressure dressing to control the bleeding, this was unsuccessful. I then applied let solution and a pressure dressing. On reassessment bleeding is well-controlled. Patient's INR is 5.3. He was given 2.5 mg vitamin K oral and instructed to hold his next 2 doses of warfarin. I instructed the patient to have his INR checked on Wednesday. Follow-up with PCP in one to 2 days. Report back to ER if any new or worsening symptoms. Discussed return parameters and answered all questions. Patient conveyed verbal understanding and agreed to the plan. I discussed this case with my attending Dr. Saini. - Lab Data Lab Results 11/26/21 Range/Units 10:35 PT 52.3 H (9.0-12.0) sec INR 5.2 H* (<1.2) Disposition Clinical Impression: Laceration Disposition: HOME SELF-CARE Condition: Good Instructions (If sedation given, give patient instructions): Laceration Without Closure (ED) Additional Instructions: Follow-up with PCP in one to 2 days. Get your INR checked this Wednesday. Hold your next 2 doses of coumadin, Then resume regular dosing. Is patient prescribed a controlled substance at d/c from ED?: No Referrals: [facility],Clinic [Primary Care Provider] - 1-2 days Time of Disposition: 12:01
[2021-11-26 10:53] LABS: Prothrombin Time 52.3 sec (9.0-12.0)
[2021-11-26 10:57] LABS: INR 5.2 (<1.2)
[2021-11-26] MEDS ORDERED: PHYTONADIONE ORAL 5 MG/5 ML ORAL.SYRG PO STA (11:46)
== END 2021-11-26 12:10 | disposition home or self-care (01) ==
LOC: EC 08:36
DX: S56.922A Laceration of unspecified muscles, fascia and tendons at forearm level, left arm, initial encounter (principal); I48.91 Unspecified atrial fibrillation; J44.9 Chronic obstructive pulmonary disease, unspecified; E11.9 Type 2 diabetes mellitus without complications; E78.5 Hyperlipidemia, unspecified; F41.9 Anxiety disorder, unspecified; Z87.891 Personal history of nicotine dependence; Z88.8 Allergy status to other drugs, medicaments and biological substances; Z88.6 Allergy status to analgesic agent; Z79.899 Other long term (current) drug therapy; W22.8XXA Striking against or struck by other objects, initial encounter
CPT/HCPCS: 36415; 85610; 99284

== ENCOUNTER 2022-10-26 14:44 | Emergency (ER) | payer MEDICARE, BC ==
[2022-10-26 14:49] VITALS: PULSE 61
[2022-10-26] MEDS ORDERED: LIDOCAINE/EPINEPHR/TETRACAINE 5 ML BOTTLE TOPICAL ONE (16:17)
[2022-10-26] MEDS ORDERED: SILVER NITRATE APPLICATOR 1 EACH STICK..EA. TOPICAL STA (16:20)
[2022-10-26] MEDS ORDERED: DIPH,PERTUS(ACELL)TETVAC-LF 0.5 ML VIAL IM ONE (16:21)
[2022-10-26] MEDS ORDERED: GELATIN SPONGE,ABSORB (LARGE) 1 EACH SPONGE TOPICAL STA (16:35)
--- NOTE | 2022-10-26 17:12 | XR ---
EXAMINATION TYPE: XR hand complete LT DATE OF EXAM: 10/26/2022 4:52 PM INDICATION: Patient age:Male; 87 years old; Reason for study: fall; PHH. COMPARISON: No relevant priors. TECHNIQUE: Frontal, lateral and oblique views of the left hand were obtained. FINDINGS: No evidence for fracture or dislocation. Degenerative changes involving the interphalangeal joints and radiocarpal joint. Moderate to severe vascular calcifications. Diffuse soft tissue swelli ng, predominantly affecting the hand and first through third digits. IMPRESSION: 1. Moderate osteoarthritis of the left hand. 2. Diffuse soft tissue swelling.
--- NOTE | 2022-10-26 18:18 | ED ---
General Adult HPI - General Chief complaint: Wound/Laceration Stated complaint: Fall-left hand injury-blood thinners Time Seen by Provider: 10/26/22 15:48 Source: patient, RN notes reviewed Mode of arrival: ambulatory Limitations: no limitations - History of Present Illness Initial comments: 87-year-old male presents to the emergency department chief complaint of skin tear on his left hand. Patient states that when he got out of his scooter earlier today he fell down and landed on his left hand causing a skin tear. Patient did not hit his head or lose consciousness. He is not reporting any other pain. Patient states that he is on blood thinners and has trouble stopping the bleeding of his skin tears at home. PMH includes CAD, DM, Afib. - Related Data Home Medications Medication Instructions Recorded Confirmed Atorvastatin [Lipitor] 80 mg PO HS 07/09/14 08/12/21 Venlafaxine HCl [Effexor] 75 mg PO BID 07/09/14 08/12/21 Furosemide [Lasix] 40 mg PO BID 05/17/15 08/12/21 Ferrous Sulfate [Iron (65 MG 325 mg PO DAILY 08/06/15 08/12/21 Elemental)] INSULIN ASPART (NovoLOG) [NovoLOG 25 unit SQ AC-TID 08/06/15 08/12/21 (formulary)] Albuterol Nebulized [Ventolin 2.5 mg INHALATION RT-QID PRN 01/27/16 08/12/21 Nebulized] Tamsulosin [Flomax] 0.4 mg PO DAILY 01/27/16 08/12/21 Bicalutamide [Casodex] 50 mg PO DAILY 11/15/17 08/12/21 Calcium/Vit D3 600mg/800iu 1 tab PO BID 11/15/17 08/12/21 Warfarin [Coumadin] 5 mg PO SUTUWETHFRSA@209902/14/19 08/12/21 Warfarin [Coumadin] 2.5 mg PO MO@209905/01/19 08/12/21 Fluticasone Propion/Salmeterol 1 puff INHALATION RT-BID 08/12/21 08/12/21 [Wixela 100-50 Inhub] Insulin Glargine [Lantus Vial] 55 unit SQ HS 08/12/21 08/12/21 Metoprolol Succinate (ER) [Toprol 50 mg PO DAILY 08/12/21 08/12/21 XL] Omeprazole 20 mg PO BID 08/12/21 08/12/21 Potassium Chloride ER [K-Dur 20] 20 meq PO DAILY 08/12/21 08/12/21 Previous Rx's Medication Instructions Recorded Amiodarone [Cordarone] 200 mg PO DAILY 30 Days #30 tab 08/21/21 Aspirin 81 mg PO DAILY 6 Days #6 tab 08/21/21 Benzonatate [Tessalon Perles] 100 mg PO TID PRN cap 08/21/21 Clopidogrel [Plavix] 75 mg PO DAILY 90 Days #90 tab 08/21/21 Gabapentin [Neurontin] 300 mg PO TID 30 Days #90 cap 08/21/21 Ipratropium-Albuterol Nebulize 3 ml INHALATION RT-QID ml 08/21/21 [Duoneb 0.5 mg-3 mg/3 ml Soln] Nitroglycerin Sl Tabs [Nitrostat] 0.4 mg SUBLINGUAL Q5M PRN #25 tab 08/21/21 guaiFENesin [Mucinex] 600 mg PO Q12HR tablet 08/21/21 Colchicine 0.6 mg PO BID #10 capsule 12/12/21 predniSONE 10 mg PO DAILY 10 Days #27 tab 12/12/21 Allergies Allergy/AdvReac Type Severity Reaction Status Date / Time adhesive Allergy blisters, Verified 10/26/22 14:49 skin peels ibuprofen [From Motrin] AdvReac Abdominal Verified 10/26/22 14:49 Pain Review of Systems ROS Statement: Those systems with pertinent positive or pertinent negative responses have been documented in the HPI. ROS Other: All systems not noted in ROS Statement are negative. Past Medical History Past Medical History: Atrial Fibrillation, Cancer, COPD, Diabetes Mellitus, Hyperlipidemia, Pneumonia, Prostate Disorder, Skin Disorder, Sleep Apnea/CPAP/BIPAP Additional Past Medical History / Comment(s): bowel perforation 2006, prostate CA, skin cancer spots removed from nose and scalp, hx migraines yr ago, atrial fibrillation status post pacemaker implantation, osteoarthritis, History of Any Multi-Drug Resistant Organisms: None Reported Past Surgical History: Back Surgery, Bowel Resection, Cardiac Ablation, Heart Catheterization, Orthopedic Surgery, Pacemaker Additional Past Surgical History / Comment(s): back surgery x2 (has cage), bowel surgery for perforation with colostomy/colostomy later reversed, nasal surgery for polyps, otoniel cataracts, arthroscopy rt knee Past Anesthesia/Blood Transfusion Reactions: No Reported Reaction Type of Cardiac Device: Permanent Pacemaker Device Placement Date:: 2013 Past Psychological History: Anxiety Smoking Status: Former smoker Past Alcohol Use History: None Reported Past Drug Use History: None Reported - Past Family History Mother Family Medical History: Cancer Additional Family Medical History / Comment(s): brain Sister(s) Family Medical History: Cancer Additional Family Medical History / Comment(s): breast Father Family Medical History: Diabetes Mellitus, Renal Disease General Exam Limitations: no limitations General appearance: alert, in no apparent distress Head exam: Present: atraumatic, normocephalic, normal inspection Eye exam: Present: normal appearance, PERRL, EOMI. Absent: scleral icterus, conjunctival injection, periorbital swelling ENT exam: Present: normal exam, mucous membranes moist Neck exam: Present: normal inspection. Absent: tenderness, meningismus, lymphadenopathy Respiratory exam: Present: normal lung sounds bilaterally. Absent: respiratory distress, wheezes, rales, rhonchi, stridor Cardiovascular Exam: Present: regular rate, normal rhythm, systolic murmur. Absent: diastolic murmur, rubs, gallop, clicks Extremities exam: Present: full ROM, tenderness (2nd digit metacarpal lt hand, no anatomical snufbox tenderness), normal capillary refill, other (Pulses 1+ bilaterally). Absent: pedal edema, joint swelling, calf tenderness Neurological exam: Present: alert, oriented X3, CN II-XII intact Psychiatric exam: Present: normal affect, normal mood Skin exam: Present: warm, dry, other (skin tear to left hand with associated ecchymosis) Course Vital Signs 10/26/22 10/26/22 14:47 18:34 Temperature 98.1 F 98.3 F Pulse Rate 61 61 Respiratory 20 16 Rate Blood Pressure 114/59 159/72 O2 Sat by Pulse 99 99 Oximetry Medical Decision Making - Medical Decision Making Was pt. sent in by a medical professional or institution (, PA, DIRECTOR CALL, urgent care, hospital, or senior living...) When possible be specific @ -No Did you speak to anyone other than the patient for history (EMS, parent, family, police, friend...)? What history was obtained from this source @ -No Did you review nursing and triage notes (agree or disagree)? Why? @ -I reviewed and agree with nursing and triage notes Were old charts reviewed (outside hosp., previous admission, EMS record, old EKG, old radiological studies, urgent care reports/EKG's, senior living records)? Report findings @ -No old charts were reviewed Differential Diagnosis (chest pain, altered mental status, abdominal pain women, abdominal pain men, vaginal bleeding, weakness, fever, dyspnea, syncope, headache, dizziness, GI bleed, back pain, seizure, CVA, palpatations, mental health, musculoskeletal)? @ -Differential Musculoskeletal Muscular strain, contusion, ligament sprain, fracture, arthritis, septic arthritis, bursitis, cellulitis, muscle spasm, nerve compression, DVT, arterial occlusion, herpes zoster, electrolyte abnormality, tumor.... This is not meant to be in all inclusive list EKG interpreted by me (3pts min.). @ -None X-rays interpreted by me (1pt min.). @ -X-ray showed no evidence for acute fracture CT interpreted by me (1pt min.). @ -None done U/S interpreted by me (1pt. min.). @ -None done What testing was considered but not performed or refused? (CT, X-rays, U/S, labs)? Why? @ -None What meds were considered but not given or refused? Why? @ -None Did you discuss the management of the patient with other professionals (professionals i.e. , PA, DIRECTOR CALL, lab, RT, psych nurse, licensed clinical social worker, household personal assistant, teacher, school services officer, watch caser)? Give summary @ -No Was smoking cessation discussed for >3mins.? @ -No Was critical care preformed (if so, how long)? @ -No Were there social determinants of health that impacted care today? How? (Homelessness, low income, unemployed, alcoholism, drug addiction, trans portation, low edu. Level, literacy, decrease access to med. care, prison, rehab)? @ -No Was there de-escalation of care discussed even if they declined (Discuss DNR or withdrawal of care, Hospice)? DNR status @ -No What co-morbidities impacted this encounter? (DM, HTN, Smoking, COPD, CAD, Cancer, CVA, ARF, Chemo, Hep., AIDS, mental health diagnosis, sleep apnea, morbid obesity)? @ -None Was patient admitted / discharged? Hospital course, mention meds given and route, prescriptions, significant lab abnormalities, going to OR and other pertinent info. @ -Discharged. Patient presented to emergency department chief complaint of left hand skin tear following a mechanical fall. Patient's tetanus status updated. X-ray obtained which show no evidence for acute fracture. Let was applied to the wound to attempt coagulation. Patient states that he typically needs lidocaine with epi to stop the bleeding on his skin tears. Discussed with him that this is not advised on the distal extremities. Gelfoam was applied and the wound was dressed. Patient advised to leave the Gelfoam on for a few days. he agreeable with treatment plan. Case discussed my attending, Dr. Dominguez. Patient stable at time of discharge Undiagnosed new problem with uncertain prognosis? @ -No Drug Therapy requiring intensive monitoring for toxicity (Heparin, Nitro, Insulin, Cardizem)? @ -No Were any procedures done? @ -No Diagnosis/symptom? @ -left hand skin tear Acute, or Chronic, or Acute on Chronic? @ -Acute Uncomplicated (without systemic symptoms) or Complicated (systemic symptoms)? @ -Uncomplicated Side effects of treatment? @ -No Exacerbation, Progression, or Severe Exacerbation? @ -No Poses a threat to life or bodily function? How? (Chest pain, USA, IA, pneumonia, PE, COPD, DKA, ARF, appy, cholecystitis, CVA, Diverticulitis, Homicidal, Suicidal, threat to staff... and all critical care pts) @ -No Disposition Clinical Impression: Skin tear Disposition: HOME SELF-CARE Condition: Stable Instructions (If sedation given, give patient instructions): Acute Wound Care (ED) Additional Instructions: Please return to the emergency department for new or worsening symptoms. Is patient prescribed a controlled substance at d/c from ED?: No Referrals: [facility],Clinic [Primary Care Provider] - 1-2 days Time of Disposition: 18:18
[2022-10-26 18:37] VITALS: BP 159/72; RESP 16; TEMP 98.3
== END 2022-10-26 18:27 | disposition home or self-care (01) ==
LOC: EC 14:44
DX: S61.412A Laceration without foreign body of left hand, initial encounter (principal); I48.91 Unspecified atrial fibrillation; J44.9 Chronic obstructive pulmonary disease, unspecified; E11.9 Type 2 diabetes mellitus without complications; E78.5 Hyperlipidemia, unspecified; G47.30 Sleep apnea, unspecified; F41.9 Anxiety disorder, unspecified; Z79.899 Other long term (current) drug therapy; Z88.8 Allergy status to other drugs, medicaments and biological substances; Z87.891 Personal history of nicotine dependence; Z23 Encounter for immunization; W01.0XXA Fall on same level from slipping, tripping and stumbling without subsequent striking against object, initial encounter
CPT/HCPCS: 90471; 90715; 99283

== ENCOUNTER 2022-11-03 07:24 | Day surgery (SDC) | payer BC, MEDICARE, OTHER ==
[2022-10-29 11:02] VITALS: BMI 36.9
[~2022-11-03 07:24] MED LIST: LACTATED RINGERS 1,000 ML IV SCH; LIDOCAINE 1% (10MG/ML) FOR IV START INTRADERMA PRN
[2022-11-03 08:14] LABS: Glucose,Whole Blood 154 mg/dL (70-110)
[2022-11-03 08:17] VITALS: TEMP 97
[2022-11-03] MEDS ORDERED: PROPOFOL 10 MG/ML 20 ML VIAL IV ONE (08:24)
--- NOTE | 2022-11-03 08:43 | P.PCN ---
Date of Procedure: 11/03/22 Procedure(s) Performed: BRIEF HISTORY: Patient is a 87-year-old pleasant white male scheduled for an elective colonoscopy as a part of evaluation of intermittent rectal bleeding for the last several months duration. Has history of prostate cancer for which she underwent radiation therapy several years ago. PROCEDURE PERFORMED: Colonoscopy With snare polypectomy and the argon plasma coagulation PREOPERATIVE DIAGNOSIS: Rectal bleeding. IV sedation per Anesthesia. PROCEDURE: After informed consent was obtained, the patient, was brought into the endoscopy unit. IV sedation was administered by Anesthesia under continuous monitoring. Digital rectal examination was normal. Initially the Olympus CF-160 flexible video colonoscope was then inserted in the rectum, gradually advanced into the cecum without any difficulty. Careful examination was performed as the scope was gradually being withdrawn. Ileocecal valve and the appendiceal orifice were visualized and appeared normal. Prep was excellent. Mucosa of the cecum, ascending colon, appeared normal. The transverse colon there was a 5 limited polyp removed by snare polypectomy. In the descending colon there was a 5 limited polyp removed by snare polypectomy. Rest of thetransverse colon, descending colon, sigmoid colon, and rectum appeared normal. In the distal rectum there were multiple oozing telangiectasia is identified consistent with radiation proctitis and these may ablated using argon plasma with good hemostasis. Retroflexion was performed in the rectum and no lesions were seen. The patient tolerated the procedure well. IMPRESSION: Multiple oozing telangiectasia in the distal rectum consistent with radiation proctitis status post argon plasma coagulation 5 mm descending colon polyp status post cold snare polypectomy 5 mm transverse colon polyp status post snare polypectomy RECOMMENDATIONS: Findings of this examination were discussed with the patient as well as his family. He was advised to follow up with the biopsy results. Resume Coumadin today. Follow up in office in a has any recurrent bleeding
[2022-11-03 09:12] VITALS: BP 124/67; PULSE 67; RESP 18
== END 2022-11-03 09:25 | disposition home or self-care (01) ==
LOC: ORWHC2ENDO 07:24
PROVIDERS: ATTEND Internal Medicine Gastroenterology
DX: D12.3 Benign neoplasm of transverse colon (principal); D12.4 Benign neoplasm of descending colon; K62.7 Radiation proctitis; I78.1 Nevus, non-neoplastic; I25.2 Old myocardial infarction; I25.10 Atherosclerotic heart disease of native coronary artery without angina pectoris; Z95.0 Presence of cardiac pacemaker; Z85.46 Personal history of malignant neoplasm of prostate; I10 Essential (primary) hypertension; K62.5 Hemorrhage of anus and rectum; E78.5 Hyperlipidemia, unspecified; I48.91 Unspecified atrial fibrillation; J44.9 Chronic obstructive pulmonary disease, unspecified; G47.33 Obstructive sleep apnea (adult) (pediatric); Z87.891 Personal history of nicotine dependence; E11.9 Type 2 diabetes mellitus without complications; N28.9 Disorder of kidney and ureter, unspecified; M19.90 Unspecified osteoarthritis, unspecified site; Z79.4 Long term (current) use of insulin; Z79.01 Long term (current) use of anticoagulants; Z79.82 Long term (current) use of aspirin; Z79.84 Long term (current) use of oral hypoglycemic drugs; Z79.899 Other long term (current) drug therapy; Z88.6 Allergy status to analgesic agent
CPT/HCPCS: 88305; 45385; 45388; J2704

== ENCOUNTER 2022-12-14 09:41 | Emergency (ER) | payer MEDICARE, BC ==
--- NOTE | 2022-12-14 10:20 | ED ---
Lower Extremity Injury HPI - General Chief Complaint: Extremity Injury, Lower Stated Complaint: Right knee pain Time Seen by Provider: 12/14/22 10:05 Source: patient, EMS, RN notes reviewed Mode of arrival: EMS Limitations: no limitations - History of Present Illness Initial Comments: This is an 87-year-old male who presents to the emergency department for right knee pain. Patient states that he tripped and fell while using his lawnmower yesterday, and has since been having pain to the right knee. The pain was minimal yesterday, however when he went to stand up this morning, he could not bear weight on the right leg. He did also injure his left lower back, but states that that is not significantly painful. Denies hitting his head or sustaining any loss of consciousness. He did take Tylenol #3 before EMS arrived, and states that was only mildly effective. Patient does take Coumadin. Denies any fevers, chills, sore throat, cough, dyspnea, chest pain, palpitations, abdominal pain, nausea, vomiting, diarrhea, or headaches. MD Complaint: knee injury - Related Data Home Medications Medication Instructions Recorded Confirmed Atorvastatin [Lipitor] 80 mg PO HS 07/09/14 12/15/22 Venlafaxine HCl [Effexor] 75 mg PO HS 07/09/14 12/15/22 Ferrous Sulfate [Iron (65 MG 325 mg PO BID 08/06/15 12/15/22 Elemental)] INSULIN ASPART (NovoLOG) [NovoLOG 6 - 8 unit SQ AC-TID 08/06/15 12/15/22 (formulary)] Tamsulosin [Flomax] 0.4 mg PO HS 01/27/16 12/15/22 Bicalutamide [Casodex] 50 mg PO HS 11/15/17 12/15/22 Warfarin [Coumadin] 5 mg PO SUMOWETHSA 02/14/19 12/15/22 Warfarin [Coumadin] 2.5 mg PO TUFR 05/01/19 12/15/22 Fluticasone Propion/Salmeterol 1 puff INHALATION RT-BID 08/12/21 12/15/22 [Wixela 100-50 Inhub] Metoprolol Succinate (ER) [Toprol 50 mg PO DAILY 08/12/21 12/15/22 XL] Calcium Carbonate/Vitamin D3 1 tab PO BID 10/29/22 12/15/22 [Calcium 600 mg-D3 20 mcg (800 unit)] Furosemide [Lasix] 20 mg PO BID 10/29/22 12/15/22 Gabapentin [Neurontin] 300 mg PO BID 10/29/22 12/15/22 Insulin Glargine,Hum.rec.anlog 24 units SQ HS 10/29/22 12/15/22 [Lantus Solostar Pen] Potassium Chloride [K-Tab ER] 10 meq PO BID 10/29/22 12/15/22 Venlafaxine HCl [Effexor] 150 mg PO QAM 10/29/22 12/15/22 amLODIPine [Norvasc] 5 mg PO HS 10/29/22 12/15/22 hydroCHLOROthiazide [Hydrodiuril] 25 mg PO DAILY 10/29/22 12/15/22 Albuterol Nebulized [Ventolin 2.5 mg INHALATION RT-QID 12/15/22 12/15/22 Nebulized] Amiodarone [Cordarone] 100 mg PO DAILY 12/15/22 12/15/22 Previous Rx's Medication Instructions Recorded Aspirin 81 mg PO DAILY 6 Days #6 tab 08/21/21 Nitroglycerin Sl Tabs [Nitrostat] 0.4 mg SUBLINGUAL Q5M PRN #25 tab 08/21/21 Diclofenac Sodium Gel [Voltaren 4 gm TOPICAL QID PRN #100 gm 12/14/22 Gel] HYDROcodone/APAP 5-325MG [Newcomb 1 tab PO Q6HR PRN 3 Days #12 tab 12/14/22 5-325] Allergies Allergy/AdvReac Type Severity Reaction Status Date / Time adhesive Allergy blisters, Verified 12/15/22 11:03 skin peels ibuprofen [From Motrin] AdvReac Abdominal Verified 12/15/22 11:03 Pain Review of Systems ROS Statement: Those systems with pertinent positive or pertinent negative responses have been documented in the HPI. ROS Other: All systems not noted in ROS Statement are negative. Past Medical History Past Medical History: Atrial Fibrillation, Cancer, COPD, Diabetes Mellitus, Hearing Disorder / Deafness, Hyperlipidemia, Hypertension, Myocardial Infarction (DC), Osteoarthritis (OA), Pneumonia, Prostate Disorder, Renal Disease, Skin Disorder, Sleep Apnea/CPAP/BIPAP Additional Past Medical History / Comment(s): bowel perforation 2006, prostate CA (radiation tx 2009)., skin cancer., pacemaker, uses c-pap machine, hx of falls- recent fall and left hand has a sore and is bruised., uses walker cane & scooter ., hearing aids., blood in stool. Last Myocardial Infarction Date:: july 2021 History of Any Multi-Drug Resistant Organisms: None Reported Past Surgical History: Back Surgery, Bowel Resection, Cardiac Ablation, Heart Catheterization, Heart Catheterization With Stent, Orthopedic Surgery, Pacemaker Additional Past Surgical History / Comment(s): back surgery x2 (has cage), bowel surgery for perforation with colostomy/colostomy later reversed, nasal surgery for polyps, otoniel cataracts, arthroscopy rt knee, heart cath with stent august 2021 Past Anesthesia/Blood Transfusion Reactions: No Reported Reaction Date of Last Stent Placement:: august 2021 Type of Cardiac Device: Permanent Pacemaker Device Placement Date:: 2013 Past Psychological History: Anxiety, Depression Smoking Status: Former smoker Past Alcohol Use History: None Reported Past Drug Use History: None Reported - Past Family History Mother Family Medical History: Cancer Additional Family Medical History / Comment(s): brain cancer Sister(s) Family Medical History: Cancer Additional Family Medical History / Comment(s): breast cancer Father Family Medical History: Diabetes Mellitus, Renal Disease General Exam Limitations: no limitations General appearance: alert, in no apparent distress Head exam: Present: atraumatic, normocephalic, normal inspection Respiratory exam: Present: normal lung sounds bilaterally. Absent: respiratory distress, wheezes, rales, rhonchi, stridor Cardiovascular Exam: Present: regular rate, normal rhythm, normal heart sounds. Absent: systolic murmur, diastolic murmur, rubs, gallop, clicks Extremities exam: Present: other (Tenderness and swelling over the right patella. No erythema or increased heat. Limited range of motion secondary to pain. 2+ DP and PT pulses. Capillary refill less than 1 second.) Back exam: Present: other (Minor ecchymosis to the left lower lumbar spine. No overlying tenderness. Full range of motion.) Neurological exam: Present: alert, oriented X3, CN II-XII intact Psychiatric exam: Present: normal affect, normal mood Skin exam: Present: warm, dry, intact, normal color. Absent: rash Course Vital Signs 12/14/22 12/14/2223 09:46 12:00 12:58 Temperature 98.0 F 97.9 F Pulse Rate 60 57 L 61 Respiratory 17 18 16 Rate Blood Pressure 137/68 136/82 109/60 O2 Sat by Pulse 99 96 98 Oximetry Medical Decision Making - Medical Decision Making This is an 87-year-old male who presents to the emergency department for right knee pain after a fall. Was pt. sent in by a medical professional or institution? @ -No Did you speak to anyone other than the patient for history? @ -No Did you review nursing and triage notes? @ -Yes, and I agree, it is accurate with regards to the patient's symptoms. Were old charts reviewed? @ -No Differential Diagnosis? @ -Differential Knee Injury Fracture, dislocation, sprain, contusion, meniscus injury, ACL/LCL/MCL/PCL injury, this is not meant to be an all-inclusive list. EKG interpreted by me (3pts min.)? @ -Not obtained X-rays interpreted by me (1pt min.)? @ -X-ray of the right knee obtained. My interpretation identifies no acute fractures or dislocations. CT interpreted by me (1pt min.)? @ -She scan of the right knee obtained. Medication identifies no acute fractures or dislocations. U/S interpreted by me (1pt. min.)? @ -Not obtained What testing was considered but not performed? (CT, X-rays, U/S, labs)? Why? @ -None What meds were considered but not given? Why? @ -None Did you discuss the management of the patient with other professionals? @ -No Did you reconcile home meds? @ -No Was smoking cessation discussed for >3mins.? @ -No Was critical care preformed (if so, how long)? @ -No Were there social determinants of health that impacted care today? How? (Homelessness, low income, unemployed, alcoholism, drug addiction, transportation, low edu. Level, literacy, decrease access to med. care, usp, rehab)? @ -No Was there de-escalation of care discussed even if they declined? (Discuss DNR or withdrawal of care, Hospice)? @ -No What co-morbidities impacted this encounter? (DM, HTN, Smoking, COPD, CAD, Cancer, CVA, Hep., AIDS, mental health diagnosis, sleep apnea, morbid obesity)? @ -A-fib - on Coumadin, osteoarthritis Was patient admitted / discharged? @ -Discharged. X-ray of the right knee obtained revealing no acute process. We tried to get the patient up to ambulate, however he could still not bear weight. We subsequently obtained a computed tomography scan of the knee for further evaluation. This revealed a Pierce's cyst as well as a mass and/or fluid in the posterior compartment of the knee. Patient was given pain medication in the emergency department, and again still could not ambulate. I did offer admission for orthopedic evaluation and pain control, however the patient requested discharge home. He does have a wheelchair at home that he is able to use. Prescriptions for Newcomb and diclofenac gel provided with dosing instructions reviewed. Advised follow-up with orthopedics as well. Undiagnosed new problem with uncertain prognosis? @ -None Drug Therapy requiring intensive monitoring for toxicity (Heparin, Nitro, Insulin, Cardizem)? @ -None Were any procedures done? @ -None Diagnosis/symptom? @ -Right knee pain, pierce's cyst Acute, or Chronic, or Acute on Chronic? @ -Acute Uncomplicated (without systemic symptoms) or Complicated (systemic symptoms)? @ -Uncomplicated Side effects of treatment? @ -None Exacerbation, Progression, or Severe Exacerbation] @ -Not applicable Poses a threat to life or bodily function? @ -This is limiting his ability to ambulate Return precautions reviewed in depth, the patient is instructed to return to the emergency department with any new, worsening, or concerning symptoms. Patient verbalized understanding. This case was discussed in detail with the attending ED physician, Dr. Saini. Presentation, findings, and treatment plan discussed in detail as well. - Radiology Data Radiology results: report reviewed, image reviewed Disposition Clinical Impression: Right knee pain, Pierce's cyst of knee, Ganglion cyst Disposition: HOME SELF-CARE Instructions (If sedation given, give patient instructions): Ganglion Cyst (ED), Pierce Cyst (ED), Knee Pain (ED) Additional Instructions: Return to the emergency department with any new, worsening, or concerning symptoms. Take the Newcomb sparingly when your pain is the most severe, otherwise take Tylenol. You can apply the diclofenac cream to the right knee up to 4 times daily for additional relief. Contact orthopedics as soon as you get home and let them know that you were evaluated in the emergency department and found to have a complex fluid collection within the knee, which is making it very difficult for you to walk, and they will schedule you for a follow-up appointment. Otherwise get plenty of rest and try to keep the leg elevated as much as possible. You can also try wrapping it with an Nicola bandage or wearing a knee brace. Prescriptions: HYDROcodone/APAP 5-325MG [Newcomb 5-325] 1 tab PO Q6HR PRN 3 Days #12 tab PRN Reason: Pain Diclofenac Sodium Gel [Voltaren Gel] 4 gm TOPICAL QID PRN #100 gm PRN Reason: Pain Is patient prescribed a controlled substance at d/c from ED?: Yes When asked, does pt state using other controlled substances?: No If prescribed controlled substance>3 days was MAPS reviewed?: Prescribed <3 Days Referrals: [facility],Clinic [Primary Care Provider] - 1-2 days Jose Bermudez MD [Medical Doctor] - 1-2 days
--- NOTE | 2022-12-14 10:38 | XR ---
EXAMINATION TYPE: XR knee complete RT DATE OF EXAM: 12/14/2022 CLINICAL HISTORY: pain TECHNIQUE: Three views of the right knee are obtained. COMPARISON: None. FINDINGS: There is no acute fracture/dislocation. Severe narrowing of the medial and lateral tibiofe moral joint spaces with moderate narrowing patellofemoral joint space. Moderate suprapatellar joint e ffusion. Vascular calcifications. Associated spurring along the margins of the femoral condyles and t ibial plateaus. The overlying soft tissue appears unremarkable. IMPRESSION: There is no acute fracture or dislocation.ICD 10 NO FRACTURE, INITIAL EVALUATION
--- NOTE | 2022-12-14 10:52 | XR ---
EXAMINATION TYPE: XR lumbar spine 2 or 3V DATE OF EXAM: 12/14/2022 CLINICAL HISTORY: pain TECHNIQUE: Three views of the lumbar spine are submitted. COMPARISON: None. FINDINGS: Extensive postoperative changes of lumbar laminectomy and fusion. Pedicular screws extend from L2 thr ough L1. The lower S1 screws appear to be fractured. Severe degenerative change thoracolumbar spine. No evidence of fracture or malalignment. IMPRESSION: No acute fracture or dislocation is seen in the lumbar spine. ICD 10 NO FRACTURE, INITIAL EVALUATION
[2022-12-14] MEDS ORDERED: HYDROcodone/APAP 5-325MG 1 EACH TAB PO STA (11:02)
--- NOTE | 2022-12-14 11:49 | CT ---
EXAMINATION TYPE: CT knee RT wo con DATE OF EXAM: 12/14/2022 COMPARISON: None HISTORY: Right knee pain Automated exposure control for dose reduction was used. Unenhanced CT of the right knee was performed FINDINGS: There is no evidence for fracture or dislocation. Severe degenerative change noted involving the medi al and lateral tibiofemoral joint spaces with associated spur formation and subchondral sclerosis. Mi ld narrowing patellofemoral joint space. Moderate suprapatellar joint effusion. Pierce's cyst is noted measuring 6.8 cm in craniocaudal dimension. There is also mass within the posterior compartment of t he knee which may reflect additional ganglion cyst and/or fluid measuring 6.3 x 2.7 cm. Vascular calc ifications seen. IMPRESSION: 1. No evidence for fracture or dislocation. 2. Pierce's cyst as well as mass and/or fluid within the posterior compartment of the knee which could reflect additional complex ganglion cyst. MRI correlation is recommended. 3. Advanced degenerative changes.
[2022-12-14 12:58] VITALS: BP 109/60; PULSE 61; RESP 16; TEMP 97.9
== END 2022-12-14 13:29 | disposition home or self-care (01) ==
LOC: EC 09:41
DX: M71.21 Synovial cyst of popliteal space [Baker], right knee (principal); M67.461 Ganglion, right knee; E11.9 Type 2 diabetes mellitus without complications; I10 Essential (primary) hypertension; E78.5 Hyperlipidemia, unspecified; I25.2 Old myocardial infarction; I48.91 Unspecified atrial fibrillation; G47.30 Sleep apnea, unspecified; F41.9 Anxiety disorder, unspecified; F32.A Depression, unspecified; J44.9 Chronic obstructive pulmonary disease, unspecified; Z79.4 Long term (current) use of insulin; Z79.51 Long term (current) use of inhaled steroids; Z79.899 Other long term (current) drug therapy; Z79.01 Long term (current) use of anticoagulants; Z87.891 Personal history of nicotine dependence; Z91.09 Other allergy status, other than to drugs and biological substances; Z88.6 Allergy status to analgesic agent
CPT/HCPCS: 72100; 99284

== ENCOUNTER 2022-12-15 08:07 | Inpatient (IN) | payer MEDICARE, BC ==
[2022-12-15] MEDS ORDERED: LIDOCAINE 1% INJ 10MG/ML (20 ML MDV) SQ ONE (08:27)
--- NOTE | 2022-12-15 08:46 | ED ---
General Adult HPI - General Chief complaint: Extremity Injury, Lower Stated complaint: R Knee Pain Time Seen by Provider: 12/15/22 08:14 Source: patient, RN notes reviewed, old records reviewed Mode of arrival: EMS Limitations: no limitations - History of Present Illness Initial comments: 87-year-old male presenting for evaluation of right knee pain and swelling. Patient injured it several days ago and has had increased swelling and difficulty with ambulating. He is on Coumadin with history of atrial fibrillation. He was seen in the emergency department yesterday and had x-ray and CT performed of the right knee. There is no fracture evident on imaging. Patient did have fusion and complex cyst. He presents today for reevaluation as he is having difficulty in breathing secondary to pain. No fever. - Related Data Home Medications Medication Instructions Recorded Confirmed Atorvastatin [Lipitor] 80 mg PO HS 07/09/14 10/29/22 Venlafaxine HCl [Effexor] 75 mg PO HS 07/09/14 10/29/22 Ferrous Sulfate [Iron (65 MG 325 mg PO BID 08/06/15 10/29/22 Elemental)] INSULIN ASPART (NovoLOG) [NovoLOG 6 - 8 unit SQ AC-TID 08/06/15 10/29/22 (formulary)] Tamsulosin [Flomax] 0.4 mg PO HS 01/27/16 10/29/22 Bicalutamide [Casodex] 50 mg PO HS 11/15/17 10/29/22 Warfarin [Coumadin] 5 mg PO SUTUTHSA 02/14/19 10/29/22 Warfarin [Coumadin] 2.5 mg PO MOWEFR 05/01/19 10/29/22 Fluticasone Propion/Salmeterol 1 puff INHALATION RT-BID 08/12/21 10/29/22 [Wixela 100-50 Inhub] Metoprolol Succinate (ER) [Toprol 50 mg PO DAILY 08/12/21 10/29/22 XL] Albuterol Updraft 1 dose INHALATION DIRECTED 10/29/22 Amiodarone [Cordarone] 50 mg PO DAILY 10/29/22 10/29/22 Calcium Carbonate/Vitamin D3 1 each PO BID 10/29/22 10/29/22 [Calcium 600 mg-D3 20 mcg (800 unit)] Furosemide [Lasix] 20 mg PO BID 10/29/22 10/29/22 Gabapentin [Neurontin] 300 mg PO BID 10/29/22 10/29/22 Insulin Glargine,Hum.rec.anlog 24 units SQ HS 10/29/22 10/29/22 [Lantus Solostar Pen] Potassium Chloride [K-Tab ER] 10 meq PO BID 10/29/22 10/29/22 Venlafaxine HCl [Effexor] 150 mg PO QAM 10/29/22 10/29/22 amLODIPine [Norvasc] 5 mg PO HS 10/29/22 10/29/22 hydroCHLOROthiazide [Hydrodiuril] 25 mg PO DAILY 10/29/22 10/29/22 Previous Rx's Medication Instructions Recorded Aspirin 81 mg PO DAILY 6 Days #6 tab 08/21/21 Nitroglycerin Sl Tabs [Nitrostat] 0.4 mg SUBLINGUAL Q5M PRN #25 tab 08/21/21 Diclofenac Sodium Gel [Voltaren 4 gm TOPICAL QID PRN #100 gm 12/14/22 Gel] HYDROcodone/APAP 5-325MG [[place] 1 tab PO Q6HR PRN 3 Days #12 tab 12/14/22 5-325] Allergies Allergy/AdvReac Type Severity Reaction Status Date / Time adhesive Allergy blisters, Verified 12/14/22 09:51 skin peels ibuprofen [From Motrin] AdvReac Abdominal Verified 12/14/22 09:51 Pain Review of Systems ROS Statement: Those systems with pertinent positive or pertinent negative responses have been documented in the HPI. ROS Other: All systems not noted in ROS Statement are negative. Past Medical History Past Medical History: Atrial Fibrillation, Cancer, COPD, Diabetes Mellitus, Hearing Disorder / Deafness, Hyperlipidemia, Hypertension, Myocardial Infarction ([place]), Osteoarthritis (OA), Pneumonia, Prostate Disorder, Renal Disease, Skin Disorder, Sleep Apnea/CPAP/BIPAP Additional Past Medical History / Comment(s): bowel perforation 2006, prostate CA (radiation tx 2009)., skin cancer., pacemaker, uses c-pap machine, hx of falls- recent fall and left hand has a sore and is bruised., uses walker cane & scooter ., hearing aids., blood in stool. Last Myocardial Infarction Date:: july 2021 History of Any Multi-Drug Resistant Organisms: None Reported Past Surgical History: Back Surgery, Bowel Resection, Cardiac Ablation, Heart Catheterization, Heart Catheterization With Stent, Orthopedic Surgery, Pacemaker Additional Past Surgical History / Comment(s): back surgery x2 (has cage), bowel surgery for perforation with colostomy/colostomy later reversed, nasal surgery for polyps, otoniel cataracts, arthroscopy rt knee, heart cath with stent august 2021 Past Anesthesia/Blood Transfusion Reactions: No Reported Reaction Date of Last Stent Placement:: august 2021 Type of Cardiac Device: Permanent Pacemaker Device Placement Date:: 2013 Past Psychological History: Anxiety, Depression Smoking Status: Former smoker Past Alcohol Use History: None Reported Past Drug Use History: None Reported - Past Family History Mother Family Medical History: Cancer Additional Family Medical History / Comment(s): brain cancer Sister(s) Family Medical History: Cancer Additional Family Medical History / Comment(s): breast cancer Father Family Medical History: Diabetes Mellitus, Renal Disease General Exam Limitations: no limitations General appearance: alert, in no apparent distress Head exam: Present: atraumatic, normocephalic Eye exam: Present: normal appearance Neck exam: Present: normal inspection Respiratory exam: Present: normal lung sounds bilaterally. Absent: respiratory distress, wheezes Cardiovascular Exam: Present: regular rate, normal rhythm GI/Abdominal exam: Present: soft. Absent: distended, tenderness Extremities exam: Present: joint swelling (Right knee is warm to the touch, larg e effusion) Neurological exam: Present: alert, oriented X3, CN II-XII intact. Absent: motor sensory deficit Course Vital Signs 12/15/22 12/15/22 08:12 10:21 Temperature 98.5 F Pulse Rate 60 68 Respiratory 16 16 Rate Blood Pressure 127/60 140/68 O2 Sat by Pulse 96 98 Oximetry Procedures - Joint Aspiration/Injection Consent Obtained: verbal consent Indications: R/O septic arthritis Side of Body: right Joint Aspirated: knee Ultrasound Guidance: No Skin Prep: Chlorhexidine Local Anesthesia Used: Lidocaine 1% Amount of Anesthesia Used (mLs): 5 Needle Size Used: 18G Syringe Size Used: Other (60) Fluid Obtained: bloody Total Fluid Obtained (mls): 55 Patient Tolerated Procedure: well Complications: none Medical Decision Making - Medical Decision Making Was pt. sent in by a medical professional or institution (, PA, NEGATIVE CHECKER, urgent care, hospital, or long-term...) When possible be specific @ -[No] Did you speak to anyone other than the patient for history (EMS, parent, family, police, friend...)? What history was obtained from this source @ -Patient's Did you review nursing and triage notes (agree or disagree)? Why? @ -[I reviewed and agree with nursing and triage notes] Were old charts reviewed (outside hosp., previous admission, EMS record, old EKG, old radiological studies, urgent care reports/EKG's, long-term records)? Report findings @ -[No old charts were reviewed] Differential Diagnosis (chest pain, altered mental status, abdominal pain women, abdominal pain men, vaginal bleeding, weakness, fever, dyspnea, syncope, headache, dizziness, GI bleed, back pain, seizure, CVA, palpatations, mental health, musculoskeletal)? @ -Ligamentous injury, hemarthrosis, septic arthritis EKG interpreted by me (3pts min.). @ -[As above] X-rays interpreted by me (1pt min.). @ -[None done] CT interpreted by me (1pt min.). @ -[None done] U/S interpreted by me (1pt. min.). @ -[None done] What testing was considered but not performed or refused? (CT, X-rays, U/S, labs)? Why? @ -[None] What meds were considered but not given or refused? Why? @ -[None] Did you discuss the management of the patient with other professionals (professionals i.e. , PA, NEGATIVE CHECKER, lab, RT, psych nurse, social media project manager, feed weigher, t eacher, soil science technical officer, bottle caser)? Give summary @Sound Was smoking cessation discussed for >3mins.? @ -[No] Was critical care preformed (if so, how long)? @ -[No] Were there social determinants of health that impacted care today? How? (Homelessness, low income, unemployed, alcoholism, drug addiction, transportation, low edu. Level, literacy, decrease access to med. care, usp, rehab)? @ -[No] Was there de-escalation of care discussed even if they declined (Discuss DNR or withdrawal of care, Hospice)? DNR status @ -[No] What co-morbidities impacted this encounter? (DM, HTN, Smoking, COPD, CAD, Cancer, CVA, ARF, Chemo, Hep., AIDS, mental health diagnosis, sleep apnea, morbid obesity)? @ -[Atrial fibrillation on Coumadin Was patient admitted / discharged? Hospital course, mention meds given and route, prescriptions, significant lab abnormalities, going to OR and other pertinent info. @87-year-old male with pain and swelling to the right knee and difficulty ambulating. Patient's symptoms have progressed over the past several days. He had an injury while getting off of his lawnmower. X-ray and CT was performed yesterday which did not show any acute bony abnormality. Patient has a large erythematous swollen right knee, very warm to the touch. Given that the patient is on Coumadin I discussed suspect hemarthrosis however the patient has elevated white blood cell count with left shift and an elevated CRP. There is also concern for septic arthritis. Knee aspirate is obtained with cell count, cultures, glucose, and evaluation for crystals. The patient will be admitted for evaluation by orthopedics pending cultures. Case discussed with the admitting team Dr. Larios Undiagnosed new problem with uncertain prognosis? @ -[No] Drug Therapy requiring intensive monitoring for toxicity (Heparin, Nitro, Insulin, Cardizem)? @ -[No] Were any procedures done? @ yes , knee aspirate Diagnosis/symptom? @ -Hemarthrosis, rule out septic arthritis Acute, or Chronic, or Acute on Chronic? @Acute Uncomplicated (without systemic symptoms) or Complicated (systemic symptoms)? @ -[default] Side effects of treatment? @ -[No] Exacerbation, Progression, or Severe Exacerbation? @ -[No] Poses a threat to life or bodily function? How? (Chest pain, USA, MD, pneumonia, PE, COPD, DKA, ARF, appy, cholecystitis, CVA, Diverticulitis, Homicidal, Suicidal, threat to staff... and all critical care pts) @ -Moderate risk, sepsis - Lab Data Result diagrams: 12/15/22 08:46 12/15/22 08:46 Lab Results 12/15/22 12/15/22 12/15/22 Range/Units 08:46 08:46 08:46 WBC 12.1 H (3.8-10.6) k/uL RBC 3.89 L (4.30-5.90) m/uL Hgb 11.7 L (13.0-17.5) gm/dL Hct 35.1 L (39.0-53.0) % MCV 90.2 (80.0-100.0) fL MCH 30.1 (25.0-35.0) pg MCHC 33.4 (31.0-37.0) g/dL RDW 14.2 (11.5-15.5) % Plt Count 191 (150-450) k/uL MPV 9.3 Neutrophils % 79 % Lymphocytes % 8 % Monocytes % 10 % Eosinophils % 2 % Basophils % 0 % Neutrophils # 9.5 H (1.3-7.7) k/uL Lymphocytes # 1.0 (1.0-4.8) k/uL Monocytes # 1.2 H (0-1.0) k/uL Eosinophils # 0.2 (0-0.7) k/uL Basophils # 0.0 (0-0.2) k/uL PT 27.8 H (9.0-12.0) sec INR 2.9 H (<1.2) APTT 51.2 H (22.0-30.0) sec Sodium 135 L (137-145) mmol/L Potassium 4.6 (3.5-5.1) mmol/L Chloride 95 L (98-107) mmol/L Carbon Dioxide 33 H (22-30) mmol/L Anion Gap 7 mmol/L BUN 37 H (9-20) mg/dL Creatinine 1.67 H (0.66-1.25) mg/dL Est GFR (CKD-EPI)AfAm 43 (>60 ml/min/1.73 sqM) Est GFR (CKD-EPI)NonAf 37 (>60 ml/min/1.73 sqM) Glucose 147 H (74-99) mg/dL Calcium 9.1 (8.4-10.2) mg/dL Total Bilirubin 1.3 (0.2-1.3) mg/dL AST 33 (17-59) U/L ALT 17 (4-49) U/L Alkaline Phosphatase 77 (38-126) U/L C-Reactive Protein 7.9 H (<1.0) mg/dL Total Protein 6.8 (6.3-8.2) g/dL Albumin 3.9 (3.5-5.0) g/dL Disposition Clinical Impression: Hemarthrosis, Unable to ambulate Narrative: Rule out septic arthritis Disposition: ADMITTED IP TO THIS HOSP Condition: Stable Is patient prescribed a controlled substance at d/c from ED?: No Time of Disposition: 10:27
[2022-12-15 08:51] LABS: Basophils % (A) 0 %; Eosinophils # (A) 0.2 k/uL (0-0.7); Eosinophils % (A) 2 %; HCT 35.1 % (39.0-53.0); HGB 11.7 gm/dL (13.0-17.5); Lymphocytes % (A) 8 %; MCH 30.1 pg (25.0-35.0); MCHC 33.4 g/dL (31.0-37.0); MCV 90.2 fL (80.0-100.0); Mean Platelet Volume 9.3; Monocytes # (A) 1.2 k/uL (0-1.0); Monocytes % (A) 10 %; Neutrophils # (A) 9.5 k/uL (1.3-7.7); Neutrophils % (A) 79 %; Platelet Count 191 k/uL (150-450); RBC 3.89 m/uL (4.30-5.90); RDW 14.2 % (11.5-15.5); WBC 12.1 k/uL (3.8-10.6)
[2022-12-15 09:16] LABS: ALT 17 U/L (4-49); African American GFR (CKD) 43 (>60 ml/min/1.73 sqM); Albumin 3.9 g/dL (3.5-5.0); Anion Gap 7 mmol/L; Blood Urea Nitrogen 37 mg/dL (9-20); C Reactive Protein 7.9 mg/dL (<1.0); Calcium 9.1 mg/dL (8.4-10.2); Carbon Dioxide 33 mmol/L (22-30); Chloride 95 mmol/L (98-107); Glucose 147 mg/dL (74-99); Non-African American GFR(CKD) 37 (>60 ml/min/1.73 sqM); Sodium 135 mmol/L (137-145); Total Bilirubin 1.3 mg/dL (0.2-1.3); Total Protein 6.8 g/dL (6.3-8.2)
[2022-12-15 09:24] LABS: AST 33 U/L (17-59); Alkaline Phosphatase 77 U/L (38-126); Potassium 4.6 mmol/L (3.5-5.1)
[2022-12-15 09:36] LABS: INR 2.9 (<1.2); Partial Thromboplastin Time 51.2 sec (22.0-30.0); Prothrombin Time 27.8 sec (9.0-12.0)
[2022-12-15] MEDS ORDERED: ACETAMINOPHEN TAB 325 MG TAB PO PRN (10:28)
[2022-12-15] MEDS ORDERED: NALOXONE 0.4 MG/ML 1 ML VIAL IV PRN (10:28)
[2022-12-15] MEDS ORDERED: HYDROmorphone 0.5 MG/0.5 ML SYRINGE IVP PRN (10:28)
--- NOTE | 2022-12-15 13:22 | P.HPIM ---
History of Present Illness H&P Date: 12/15/22 History of Presenting Illness: Patient has a very pleasant 87-year-old male with a past medical history of CAD with stents and pacemaker placement, atrial fibrillation status post cardiac ablation on Coumadin, pulmonary hypertension, aortic stenosis, HFrEF with previously known EF of 25-30%, stage IIIB CKD, hypertension, hyperlipidemia, prostate cancer status post radiation, COPD, obstructive sleep apnea CPAP dependent, and insulin-dependent diabetes mellitus. He presented to the emergency department secondary to right knee pain and swelling accompanied by difficulty in ambulation and weightbearing. Patient had a mechanical fall onto right knee on 12/13/22 and has since had significantly worsening swelling and pain. Patient is on anticoagulation with Coumadin. He denies having any fevers, chills, numbness, or any other complaints. Patient was initially seen in the ER on 12/14/22 and underwent x-ray of right knee which was negative for acute fracture or dislocation showing severe narrowing of the medial and lateral tibiofemoral joint spaces with moderate narrowing of the patellofemoral joint space with moderate suprapatellar joint effusion. Patient was discharged home and returned today secondary to continued swelling and pain and now unable to bear weight on right leg. Labs were completed showing leukocytosis with WBC count of 12.1. INR was therapeutic at 2.9. BMP showing elevated renal function with BUN 37, creatinine 1.67, and GFR of 37 (baseline creatinine 1.6.). Right knee was aspirated in the ED with reports of 60 mL of bloody right knee aspirate. Discussed in detail with the ED physician. Patient admitted under ou r services with consultation to orthopedic surgery team. Review of systems: Pertinent positives and negatives as discussed in HPI, a complete review of syst ems was performed and all other systems are negative. Physical exam: Vital signs reviewed and stable. General: Nontoxic, no distress and appears stated age. Derm: Skin warm and dry, normal coloration for ethnicity. Head: Atraumatic, normocephalic and symmetric. Eyes: EOMs intact, no lid lag, and anicteric sclera Mouth: no lip lesions, mucus membranes moist Cardiovascular: regular rate and rhythm with normal S1S2, stage III systolic murmur, positive posterior tibial pulses bilaterally, and cap refill < 2 seconds. Lungs: Respirations even, regular, and unlabored on room air. Lungs CTA bilaterally, no rhonchi, no rales, no wheezing, and no accessory muscle usage. Abdominal: soft, nontender to palpation, no guarding, no appreciable organomeg mitali Ext: ROM intact. No gross muscle atrophy, no edema, no contractures. Right knee wrapped with Nicola dressing. Neuro: Speech clear, face symmetrical and CN II-XII grossly intact with no noted focal neuro deficits Psych: Alert and oriented to person, place, time, and situation. Appropriate and pleasant affect. Assessment and Plan of Care: Hemarthrosis vs septic arthritis Leukocytosis, likely reactive however we cannot rule out infectious process at this time Mechanical fall at home resulting in right knee pain/injury -X-ray of right knee which was negative for acute fracture or dislocation showing severe narrowing of the medial and lateral tibiofemoral joint spaces with moderate narrowing of the patellofemoral joint space with moderate suprapatellar joint effusion. -Labs were completed and reviewed. CBC showing leukocytosis with WBC count of 12.1. INR was therapeutic at 2.9. BMP showing elevated renal function with BUN 37, creatinine 1.67, and GFR of 37 (baseline creatinine 1.6.). -Right knee aspirated in the emergency department with reports of 60 mL of bloody synovial fluid -Follow up on synovial culture results and blood culture results -Start patient on empiric IV antibiotics pending these results with vancomycin -Consult placed orthopedic surgery Consult placed to PT/OT for evaluation. Hold aspirin and Coumadin pending further recommendations from orthopedic surgery -Consult also placed to case management for assistance with placement. Chronic conditions: CAD with stents and pacemaker Atrial fibrillation status post cardiac ablation Pulmonary hypertension Aortic stenosis HFrEF with previously known EF of 25-30% Stage IIIb CKD stable at baseline Hypertension Hyperlipidemia Prostate cancer status post radiation COPD Obstructive sleep apnea Insulin-dependent diabetes mellitus Hold aspirin and Coumadin pending further recommendations from orthopedic surgery. (INR was therapeutic at 2.9) -Patient to continue daily medication regimen with amiodarone 100 mg daily, felodipine 5 mg daily, atorvastatin 80 mg nightly, Symbicort 2 puffs twice daily, ferrous sulfate 325 mg twice daily, Lasix 20 mg twice daily, Neurontin 300 mg twice daily, hydrochlorothiazide 25 mg daily metoprolol 50 mg daily, Flomax 0.4 mg nightly, and Effexor 150 mg each morning and 75 mg nightly. -BMP showing elevated renal function with BUN 37, creatinine 1.67, and GFR of 37 (baseline creatinine 1.6.). -Patient is an insulin-dependent diabetic. Currently blood glucose 147. Reordered Levemir [address] patient on glycemic protocol with NovoLog sliding scale. -Order placed for CPAP nightly and will mapping. Discussed in detail with the ED physician. Patient admitted under our services with consultation to orthopedic surgery team. CODE STATUS: Full code DVT prophylaxis: INR currently 2.9, Coumadin and aspirin being held pending further recommendations from orthopedic surgery team. May resume once cleared by orthopedic Discussed with: Patient, RN in ED physician Anticipated discharge date: Clinical course to determine Anticipated discharge place: Likely rehab, patient unable to bear weight Patient was seen independently by Nurse Practitioner. This document was prepared using [employer] dictation software. Please allow for errors in automatic spinning lathe operator while rare they do occur. Aaron Sanford NP rendered care for this patient independently, reviewed the findings and plan as documented in the note above. I did not physically speak with or examine the patient on this date. Past Medical History Past Medical History: Atrial Fibrillation, Cancer, COPD, Diabetes Mellitus, Hearing Disorder / Deafness, Hyperlipidemia, Hypertension, Myocardial Infarction ([place]), Osteoarthritis (OA), Pneumonia, Prostate Disorder, Renal Disease, Skin Disorder, Sleep Apnea/CPAP/BIPAP Additional Past Medical History / Comment(s): bowel perforation 2006, prostate CA (radiation tx 2009)., skin cancer., pacemaker, uses c-pap machine, hx of falls- recent fall and left hand has a sore and is bruised., uses walker cane & scooter ., hearing aids., blood in stool. Last Myocardial Infarction Date:: july 2021 History of Any Multi-Drug Resistant Organisms: None Reported Past Surgical History: Back Surgery, Bowel Resection, Cardiac Ablation, Heart Catheterization, Heart Catheterization With Stent, Orthopedic Surgery, Pacemaker Additional Past Surgical History / Comment(s): back surgery x2 (has cage), bowel surgery for perforation with colostomy/colostomy later reversed, nasal surgery for polyps, otoniel cataracts, arthroscopy rt knee, heart cath with stent august 2021 Past Anesthesia/Blood Transfusion Reactions: No Reported Reaction Date of Last Stent Placement:: august 2021 Type of Cardiac Device: Permanent Pacemaker Device Placement Date:: 2013 Past Psychological History: Anxiety, Depression Smoking Status: Former smoker Past Alcohol Use History: None Reported Past Drug Use History: None Reported - Past Family History Mother Family Medical History: Cancer Additional Family Medical History / Comment(s): brain cancer Sister(s) Family Medical History: Cancer Additional Family Medical History / Comment(s): breast cancer Father Family Medical History: Diabetes Mellitus, Renal Disease Medications and Allergies Home Medications Medication Instructions Recorded Confirmed Type Atorvastatin [Lipitor] 80 mg PO HS 07/09/14 12/15/22 History Venlafaxine HCl [Effexor] 75 mg PO HS 07/09/14 12/15/22 History Ferrous Sulfate [Iron (65 MG 325 mg PO BID 08/06/15 12/15/22 History Elemental)] INSULIN ASPART (NovoLOG) [NovoLOG 6 - 8 unit SQ AC-TID 08/06/15 12/15/22 History (formulary)] Tamsulosin [Flomax] 0.4 mg PO HS 01/27/16 12/15/22 History Bicalutamide [Casodex] 50 mg PO HS 11/15/17 12/15/22 History Warfarin [Coumadin] 5 mg PO SUMOWETHSA 02/14/19 12/15/22 History Warfarin [Coumadin] 2.5 mg PO TUFR 05/01/19 12/15/22 History Fluticasone Propion/Salmeterol 1 puff INHALATION RT-BID 08/12/21 12/15/22 History [Wixela 100-50 Inhub] Metoprolol Succinate (ER) [Toprol 50 mg PO DAILY 08/12/21 12/15/22 History XL] Aspirin 81 mg PO DAILY 6 Days #6 tab 08/21/21 12/15/22 Rx Nitroglycerin Sl Tabs [Nitrostat] 0.4 mg SUBLINGUAL Q5M PRN #25 tab 08/21/21 12/15/22 Rx Calcium Carbonate/Vitamin D3 1 tab PO BID 10/29/22 12/15/22 History [Calcium 600 mg-D3 20 mcg (800 unit)] Furosemide [Lasix] 20 mg PO BID 10/29/22 12/15/22 History Gabapentin [Neurontin] 300 mg PO BID 10/29/22 12/15/22 History Insulin Glargine,Hum.rec.anlog 24 units SQ HS 10/29/22 12/15/22 History [Lantus Solostar Pen] Potassium Chloride [K-Tab ER] 10 meq PO BID 10/29/22 12/15/22 History Venlafaxine HCl [Effexor] 150 mg PO QAM 10/29/22 12/15/22 History amLODIPine [Norvasc] 5 mg PO HS 10/29/22 12/15/22 History hydroCHLOROthiazide [Hydrodiuril] 25 mg PO DAILY 10/29/22 12/15/22 History Diclofenac Sodium Gel [Voltaren 4 gm TOPICAL QID PRN #100 gm 12/14/22 12/15/22 Rx Gel] HYDROcodone/APAP 5-325MG [[place] 1 tab PO Q6HR PRN 3 Days #12 tab 12/14/22 12/15/22 Rx 5-325] Albuterol Nebulized [Ventolin 2.5 mg INHALATION RT-QID 12/15/22 12/15/22 History Nebulized] Amiodarone [Cordarone] 100 mg PO DAILY 12/15/22 12/15/22 History Allergies Allergy/AdvReac Type Severity Reaction Status Date / Time adhesive Allergy blisters, Verified 12/15/22 11:03 skin peels ibuprofen [From Motrin] AdvReac Abdominal Verified 12/15/22 11:03 Pain Physical Exam Osteopathic Statement: *. No significant issues noted on an osteopathic structural exam other than those noted in the History and Physical/Consult. Vitals: Vital Signs Temp Pulse Resp BP Pulse Ox 12/15/22 13:06 80 18 133/63 12/15/22 10:21 68 16 140/68 98 12/15/22 08:12 98.5 F 60 16 127/60 96 Intake and Output 12/14/22 12/15/22 12/15/22 22:59 06:59 14:59 Other: Weight 99.337 kg Results CBC & Chem 7: 12/15/22 08:46 12/15/22 08:46 Labs: Abnormal Lab Results - Last 24 Hours (Table) 12/15/22 12/15/22 12/15/22 Range/Units 08:46 08:46 08:46 WBC 12.1 H (3.8-10.6) k/uL RBC 3.89 L (4.30-5.90) m/uL Hgb 11.7 L (13.0-17.5) gm/dL Hct 35.1 L (39.0-53.0) % Neutrophils # 9.5 H (1.3-7.7) k/uL Monocytes # 1.2 H (0-1.0) k/uL PT 27.8 H (9.0-12.0) sec INR 2.9 H (<1.2) APTT 51.2 H (22.0-30.0) sec Sodium 135 L (137-145) mmol/L Chloride 95 L (98-107) mmol/L Carbon Dioxide 33 H (22-30) mmol/L BUN 37 H (9-20) mg/dL Creatinine 1.67 H (0.66-1.25) mg/dL Glucose 147 H (74-99) mg/dL C-Reactive Protein 7.9 H (<1.0) mg/dL
[2022-12-15] MEDS ORDERED: NITROGLYCERIN SL TABS 0.4 MG TAB SUBLINGUAL PRN (13:33)
[2022-12-15] MEDS ORDERED: DEXTROSE 50% SYRINGE 50 ML IVP PRN ×2 (13:36)
[2022-12-15 14:02] LABS: Appearance,BF Bloody; Nucleated Cells, Body Fluid 10500 /uL; RBC, Body Fluid 478500 /uL
[2022-12-15 14:04] LABS: Mononuclear WBC,Body Fluid 15 %; Polynuclear WBC,Body Fluid 85 %; Total Cells Counted,Body Fluid 100
[2022-12-15 17:58] LABS: Glucose,Whole Blood 211 mg/dL (70-110)
[2022-12-15] MEDS: FUROSEMIDE 20 MG TAB PO SCH (17:58)
[2022-12-15] MEDS: INSULIN ASPART (NovoLOG) 100 UNIT/ML VIAL SQ SCH ×2 (17:59→21:10)
[2022-12-15] MEDS ORDERED: VANCOMYCIN IV PER PHARMACY 1 EACH MISC MISCELLANE PRN (18:21)
[2022-12-15 18:38] LABS: Synovial Fld Crystals Seen (None Seen)
[2022-12-15] MEDS: SYMBICORT 80-4.5 MCG INHALER INHALATION SCH (20:26)
[2022-12-15] MEDS: VANCOMYCIN 1,500 MG in SODIUM CHLORIDE 0.9% 500 ML 500 ML IVPB SCH (20:54)
[2022-12-15] MEDS: amLODIPine 5 MG TAB PO SCH (20:58)
[2022-12-15] MEDS: ATORVASTATIN 80 MG TAB PO SCH (20:58)
[2022-12-15] MEDS: CALCIUM CARB-VIT D 500 MG-5 MCG TAB PO SCH (20:59)
[2022-12-15] MEDS: BICALUTAMIDE 50 MG TAB PO SCH (20:59)
[2022-12-15] MEDS: VENLAFAXINE HCL 75 MG TAB PO SCH (21:00)
[2022-12-15] MEDS: FERROUS SULFATE 325 MG TAB PO SCH (21:00)
[2022-12-15] MEDS: INSULIN DETEMIR (LEVEMIR) 100 UNIT/ML SYR SQ SCH (21:00)
[2022-12-15] MEDS: TAMSULOSIN 0.4 MG CAP.ER.24H PO SCH (21:00)
[2022-12-15] MEDS: GABAPENTIN 300 MG CAP PO SCH (21:00)
[2022-12-15 21:09] LABS: Glucose,Whole Blood 168 mg/dL (70-110)
[2022-12-15 22:59] LABS: Glucose, BF Source Body Fluid; Glucose, Body Fluid 58 mg/dL
[2022-12-16 06:24] LABS: Glucose,Whole Blood 107 mg/dL (70-110)
[2022-12-16] MEDS: INSULIN ASPART (NovoLOG) 100 UNIT/ML VIAL SQ SCH ×4 (07:28→20:01)
[2022-12-16] MEDS: SYMBICORT 80-4.5 MCG INHALER INHALATION SCH ×2 (08:22→20:11)
[2022-12-16] MEDS: FUROSEMIDE 20 MG TAB PO SCH ×2 (08:22→17:20)
[2022-12-16] MEDS: METOPROLOL SUCCINATE (ER) 50 MG TAB.ER.24H PO SCH (08:23)
[2022-12-16] MEDS: hydroCHLOROthiazide 25 MG TAB PO SCH (08:23)
[2022-12-16] MEDS: GABAPENTIN 300 MG CAP PO SCH ×2 (08:23→20:15)
[2022-12-16] MEDS: FERROUS SULFATE 325 MG TAB PO SCH ×2 (08:24→20:15)
[2022-12-16] MEDS: CALCIUM CARB-VIT D 500 MG-5 MCG TAB PO SCH ×2 (08:24→20:15)
[2022-12-16] MEDS: AMIODARONE 100 MG TAB PO SCH (08:26)
[2022-12-16] MEDS: VENLAFAXINE HCL 75 MG TAB PO SCH ×2 (08:31→20:41)
[2022-12-16 11:34] LABS: Glucose,Whole Blood 125 mg/dL (70-110)
[2022-12-16 11:47] LABS: INR 3.1 (<1.2); Prothrombin Time 29.8 sec (9.0-12.0)
[2022-12-16 12:04] LABS: ALT 16 U/L (4-49); African American GFR (CKD) 50 (>60 ml/min/1.73 sqM); Albumin 3.7 g/dL (3.5-5.0); Albumin/Globulin Ratio 1.3; Anion Gap 9 mmol/L; Blood Urea Nitrogen 32 mg/dL (9-20); Calcium 8.9 mg/dL (8.4-10.2); Carbon Dioxide 29 mmol/L (22-30); Chloride 97 mmol/L (98-107); Globulin 2.9 g/dL; Glucose 114 mg/dL (74-99); Non-African American GFR(CKD) 43 (>60 ml/min/1.73 sqM); Sodium 135 mmol/L (137-145); Total Bilirubin 1.4 mg/dL (0.2-1.3); Total Protein 6.6 g/dL (6.3-8.2)
[2022-12-16 12:05] LABS: HCT 34.6 % (39.0-53.0); HGB 11.8 gm/dL (13.0-17.5); MCH 30.5 pg (25.0-35.0); MCHC 34.1 g/dL (31.0-37.0); MCV 89.3 fL (80.0-100.0); Mean Platelet Volume 11.6; Platelet Count 131 k/uL (150-450); RBC 3.88 m/uL (4.30-5.90); RDW 14.1 % (11.5-15.5); WBC 13.9 k/uL (3.8-10.6)
[2022-12-16 12:16] LABS: AST 32 U/L (17-59); Alkaline Phosphatase 66 U/L (38-126); Potassium 3.6 mmol/L (3.5-5.1)
--- NOTE | 2022-12-16 13:14 | P.CNOR ---
History of Present Illness - [facility] Consult date: 12/16/22 Consult reason: joint pain History of present illness: Patient is a pleasant 87 yo male seen at bedside today in the ED with his son present. He presented to the ED on 12/14/22 initially after suffering from a fall and injuring his right knee. Studies were negative for fracture. He was discharged but returned again yesterday due to worsening pain and difficulty weightbearing/ambulating. An aspiration was performed by the physician and is being admitted for further eval and treatment. He continues to have pain at the right knee. He denies fever, chills, calf pain or numbness. He has no other current complaints Review of Systems All systems: negative Constitutional: Denies chills, Denies fever Eyes: denies blurred vision, denies pain Ears, nose, mouth and throat: Denies headache, Denies sore throat Cardiovascular: Denies chest pain, Denies shortness of breath Respiratory: Denies cough Gastrointestinal: Denies abdominal pain, Denies diarrhea, Denies nausea, Denies vomiting Musculoskeletal: Denies myalgias Integumentary: Denies pruritus, Denies rash Neurological: Denies numbness, Denies weakness Psychiatric: Denies anxiety, Denies depression Endocrine: Denies fatigue, Denies weight change Past Medical History Past Medical History: Atrial Fibrillation, Cancer, COPD, Diabetes Mellitus, Hearing Disorder / Deafness, Hyperlipidemia, Hypertension, Myocardial Infarction (NE), Osteoarthritis (OA), Pneumonia, Prostate Disorder, Renal Disease, Skin Disorder, Sleep Apnea/CPAP/BIPAP Additional Past Medical History / Comment(s): bowel perforation 2006, prostate CA (radiation tx 2009)., skin cancer., pacemaker, uses c-pap machine, hx of falls- recent fall and left hand has a sore and is bruised., uses walker cane & scooter ., hearing aids., blood in stool. Last Myocardial Infarction Date:: july 2021 History of Any Multi-Drug Resistant Organisms: None Reported Past Surgical History: Back Surgery, Bowel Resection, Cardiac Ablation, Heart Ca theterization, Heart Catheterization With Stent, Orthopedic Surgery, Pacemaker Additional Past Surgical History / Comment(s): back surgery x2 (has cage), bowel surgery for perforation with colostomy/colostomy later reversed, nasal surgery for polyps, otoniel cataracts, arthroscopy rt knee, heart cath with stent august 2021 Past Anesthesia/Blood Transfusion Reactions: No Reported Reaction Date of Last Stent Placement:: august 2021 Type of Cardiac Device: Permanent Pacemaker Device Placement Date:: 2013 Past Psychological History: Anxiety, Depression Additional Psychological History / Comment(s): . Smoking Status: Former smoker Past Alcohol Use History: None Reported Additional Past Alcohol Use History / Comment(s): quit smoking 1965, hx of 1 ppd. Past Drug Use History: None Reported - Past Family History Mother Family Medical History: Cancer Additional Family Medical History / Comment(s): brain cancer Sister(s) Family Medical History: Cancer Additional Family Medical History / Comment(s): breast cancer Father Family Medical History: Diabetes Mellitus, Renal Disease Medications and Allergies Home Medications Medication Instructions Recorded Confirmed Type Atorvastatin [Lipitor] 80 mg PO HS 07/09/14 12/15/22 History Venlafaxine HCl [Effexor] 75 mg PO HS 07/09/14 12/15/22 History Ferrous Sulfate [Iron (65 MG 325 mg PO BID 08/06/15 12/15/22 History Elemental)] INSULIN ASPART (NovoLOG) [NovoLOG 6 - 8 unit SQ AC-TID 08/06/15 12/15/22 History (formulary)] Tamsulosin [Flomax] 0.4 mg PO HS 01/27/16 12/15/22 History Bicalutamide [Casodex] 50 mg PO HS 11/15/17 12/15/22 History Warfarin [Coumadin] 5 mg PO SUMOWETHSA 02/14/19 12/15/22 History Warfarin [Coumadin] 2.5 mg PO TUFR 05/01/19 12/15/22 History Fluticasone Propion/Salmeterol 1 puff INHALATION RT-BID 08/12/21 12/15/22 History [Wixela 100-50 Inhub] Metoprolol Succinate (ER) [Toprol 50 mg PO DAILY 08/12/21 12/15/22 History XL] Aspirin 81 mg PO DAILY 6 Days #6 tab 08/21/21 12/15/22 Rx Nitroglycerin Sl Tabs [Nitrostat] 0.4 mg SUBLINGUAL Q5M PRN #25 tab 08/21/21 12/15/22 Rx Calcium Carbonate/Vitamin D3 1 tab PO BID 10/29/22 12/15/22 History [Calcium 600 mg-D3 20 mcg (800 unit)] Furosemide [Lasix] 20 mg PO BID 10/29/22 12/15/22 History Gabapentin [Neurontin] 300 mg PO BID 10/29/22 12/15/22 History Insulin Glargine,Hum.rec.anlog 24 units SQ HS 10/29/22 12/15/22 History [Lantus Solostar Pen] Potassium Chloride [K-Tab ER] 10 meq PO BID 10/29/22 12/15/22 History Venlafaxine HCl [Effexor] 150 mg PO QAM 10/29/22 12/15/22 History amLODIPine [Norvasc] 5 mg PO HS 10/29/22 12/15/22 History hydroCHLOROthiazide [Hydrodiuril] 25 mg PO DAILY 10/29/22 12/15/22 History Diclofenac Sodium Gel [Voltaren 4 gm TOPICAL QID PRN #100 gm 12/14/22 12/15/22 Rx Gel] HYDROcodone/APAP 5-325MG [Buckner 1 tab PO Q6HR PRN 3 Days #12 tab 12/14/22 12/15/22 Rx 5-325] Albuterol Nebulized [Ventolin 2.5 mg INHALATION RT-QID 12/15/22 12/15/22 History Nebulized] Amiodarone [Cordarone] 100 mg PO DAILY 12/15/22 12/15/22 History Allergies Allergy/AdvReac Type Severity Reaction Status Date / Time adhesive Allergy blisters, Verified 12/15/22 11:03 skin peels ibuprofen [From Motrin] AdvReac Abdominal Verified 12/15/22 11:03 Pain Physical Examination Inspection of the right knee shows no erythema, wounds or deformity. There is mild effusion. It is not hot to touch. There is medial joint line tenderness. The knee appears ligamentously stable. He has pain with flexion to 90 degrees. He has full extension. Calf is SNT. NVI with 1+ DP pulse and less than 2 sec cap refill. Motor and sensation is intact Results Xrays and CT of the right Knee are negative for fracture - Labs Labs: Abnormal Lab Results - Last 24 Hours (Table) 12/15/22 12/15/22 12/15/22 Range/Units 09:45 17:56 21:07 POC Glucose (mg/dL) 211 H 168 H (70-110) mg/dL Synovial Crystals Seen A (None Seen) Microbiology - Last 24 Hours (Table) 12/15/22 09:45 Gram Stain - Preliminary Knee - Right Body Fluid Culture - Preliminary H & H 12/15/22 Range/Units 08:46 Hgb 11.7 L (13.0-17.5) gm/dL Hct 35.1 L (39.0-53.0) % Coagulation 12/15/22 Range/Units 08:46 INR 2.9 H (<1.2) Result Diagrams: 12/16/22 10:59 12/16/22 10:59 - Diagnostic results Knee x-ray: report reviewed, image reviewed Knee CT: report reviewed, image reviewed Assessment and Plan (1) Osteoarthritis of right knee Narrative/Plan: No plans for immediate surgical intervention. There are no signs of septic arthritis. There is No fracture. Recommend rest, ice, elevation, pain management. Will continue to monitor and make further recommendations as appropriate. Current Visit: Yes Status: Acute Priority: Medium Code(s): M17.11 - UNILATERAL PRIMARY OSTEOARTHRITIS, RIGHT KNEE SNOMED Code(s): 195274600734076 (2) Hemarthrosis Current Visit: Yes Status: Acute Priority: Medium Code(s): M25.00 - HEMARTHROSIS, UNSPECIFIED JOINT SNOMED Code(s): 01818533 Time with Patient: Less than 30
--- NOTE | 2022-12-16 14:03 | P.PN ---
Subjective Progress Note Date: 12/16/22 Hospital Course: 87-year-old male with a past medical history of CAD with stents and pacemaker placement, atrial fibrillation status post cardiac ablation on Coumadin, pulmonary hypertension, aortic stenosis, HFrEF with previously known EF of 25- 30%, stage IIIB CKD, hypertension, hyperlipidemia, prostate cancer status post radiation, COPD, obstructive sleep apnea CPAP dependent, and insulin-dependent diabetes mellitus. He presented to the emergency department secondary to right knee pain and swelling accompanied by difficulty in ambulation and weightbearing. Patient had a mechanical fall onto right knee on 12/13/22 and has since had significantly worsening swelling and pain. Patient was initially seen in the ER on 12/14/22 and underwent x-ray of right knee which was negative for acute fracture or dislocation showing severe narrowing of the medial and lateral tibiofemoral joint spaces with moderate narrowing of the patellofemoral joint space with moderate suprapatellar joint effusion. Patient was discharged home and returned today secondary to continued swelling and pain and now unable to bear weight on right leg. Labs were completed showing leukocytosis with WBC count of 12.1. INR was therapeutic at 2.9. BMP showing elevated renal function with BUN 37, creatinine 1.67, and GFR of 37 (baseline creatinine 1.6.). Right knee was aspirated in the ED with reports of 60 mL of bloody right knee aspirate. Orthopedic surgery consulted. Synovial fluid analysis shows 10,000 nucleated cells, 4 78,000 RBCs, uric acid crystals. Patient started on oral prednisone. Subjective: Seen and examined at bedside. No acute events overnight. He claims that his right knee pain is improving. Pertinent positives and negatives as discussed above, a complete review of syst ems was performed and all other systems are negative. Vitals Signs Reviewed. General: Nontoxic, no distress and appears stated age. Derm: Skin warm and dry, normal coloration for ethnicity. Head: Atraumatic, normocephalic and symmetric. Eyes: EOMs intact, no lid lag, and anicteric sclera Mouth: no lip lesions, mucus membranes moist Cardiovascular: regular rate and rhythm with normal S1S2, stage III systolic murmur, positive posterior tibial pulses bilaterally, and cap refill < 2 seconds . Lungs: Respirations even, regular, and unlabored on room air. Lungs CTA bilaterally, no rhonchi, no rales, no wheezing, and no accessory muscle usage. Abdominal: soft, nontender to palpation, no guarding, no appreciable organomegaly Ext: ROM intact. No gross muscle atrophy, no edema, no contractures. Right knee wrapped with Nicola dressing. Neuro: Speech clear, face symmetrical and CN II-XII grossly intact with no noted focal neuro deficits Psych: Alert and oriented to person, place, time, and situation. Appropriate and pleasant affect. Data Reviewed Today: Pertinent Labs: WBC 13.9, hemoglobin 11.8, INR 3.1, creatinine 1.46 Imaging: No new imaging Assessment and Plan: Hemarthrosis, right knee gouty monoarthropathy right knee Leukocytosis, likely reactive Mechanical fall -Orthopedic surgery note reviewed, no signs of septic arthritis -Patient has been started on oral prednisone 40 mg daily -May be able to taper oral prednisone as patient already had arthrocentesis -Repeat CBC and BMP tomorrow Chronic conditions: CAD with stents and pacemaker Atrial fibrillation status post cardiac ablation Pulmonary hypertension Aortic stenosis HFrEF with previously known EF of 25-30% Stage IIIb CKD stable at baseline Hypertension Hyperlipidemia Prostate cancer status post radiation COPD Obstructive sleep apnea Insulin-dependent diabetes mellitus -Hold aspirin and Coumadin pending further recommendations from orthopedic surgery. (INR was therapeutic at 2.9) -Patient to continue daily medication regimen with amiodarone 100 mg daily, felodipine 5 mg daily, atorvastatin 80 mg nightly, Symbicort 2 puffs twice daily, ferrous sulfate 325 mg twice daily, Lasix 20 mg twice daily, Neurontin 300 mg twice daily, hydrochlorothiazide 25 mg daily metoprolol 50 mg daily, Flomax 0.4 mg nightly, and Effexor 150 mg each morning and 75 mg nightly. -Patient is an insulin-dependent diabetic. Currently blood glucose 147. Reordered Levemir [address] patient on glycemic protocol with NovoLog sliding scale. -Order placed for CPAP nightly and will napping DVT ppx: INR supratherapeutic Code status: Full code Anticipated discharge place: Pending clinical course Anticipated discharge time: Pending clinical course Objective - Vital Signs Vital signs: Vital Signs Temp 97.3 F L 12/16/22 07:24 Pulse 60 12/16/22 10:10 Resp 18 12/16/22 10:10 BP 131/66 12/16/22 10:10 Pulse Ox 97 12/16/22 10:10 FiO2 Intake & Output 12/15/22 12/16/22 12/16/22 18:59 06:59 18:59 Weight 99.337 kg - Labs CBC & Chem 7: 12/16/22 10:59 12/16/22 10:59 Labs: Abnormal Lab Results - Last 24 Hours (Table) 12/15/22 12/15/22 12/15/22 Range/Units 09:45 17:56 21:07 WBC (3.8-10.6) k/uL RBC (4.30-5.90) m/uL Hgb (13.0-17.5) gm/dL Hct (39.0-53.0) % Plt Count (150-450) k/uL PT (9.0-12.0) sec INR (<1.2) Sodium (137-145) mmol/L Chloride (98-107) mmol/L BUN (9-20) mg/dL Creatinine (0.66-1.25) mg/dL Glucose (74-99) mg/dL POC Glucose (mg/dL) 211 H 168 H (70-110) mg/dL Total Bilirubin (0.2-1.3) mg/dL Synovial Crystals Seen A (None Seen) 12/16/22 12/16/22 12/16/22 Range/Units 10:59 10:59 10:59 WBC 13.9 H (3.8-10.6) k/uL RBC 3.88 L (4.30-5.90) m/uL Hgb 11.8 L (13.0-17.5) gm/dL Hct 34.6 L (39.0-53.0) % Plt Count 131 L (150-450) k/uL PT 29.8 H (9.0-12.0) sec INR 3.1 H (<1.2) Sodium 135 L (137-145) mmol/L Chloride 97 L (98-107) mmol/L BUN 32 H (9-20) mg/dL Creatinine 1.46 H (0.66-1.25) mg/dL Glucose 114 H (74-99) mg/dL POC Glucose (mg/dL) (70-110) mg/dL Total Bilirubin 1.4 H (0.2-1.3) mg/dL Synovial Crystals (None Seen) 12/16/22 Range/Units 11:32 WBC (3.8-10.6) k/uL RBC (4.30-5.90) m/uL Hgb (13.0-17.5) gm/dL Hct (39.0-53.0) % Plt Count (150-450) k/uL PT (9.0-12.0) sec INR (<1.2) Sodium (137-145) mmol/L Chloride (98-107) mmol/L BUN (9-20) mg/dL Creatinine (0.66-1.25) mg/dL Glucose (74-99) mg/dL POC Glucose (mg/dL) 125 H (70-110) mg/dL Total Bilirubin (0.2-1.3) mg/dL Synovial Crystals (None Seen) Microbiology - Last 24 Hours (Table) 12/15/22 09:45 Gram Stain - Preliminary Knee - Right Body Fluid Culture - Preliminary
[2022-12-16 16:34] LABS: Glucose,Whole Blood 163 mg/dL (70-110)
[2022-12-16] MEDS: predniSONE 20 MG TAB PO SCH (17:20)
[2022-12-16] MEDS: VANCOMYCIN 1,500 MG in SODIUM CHLORIDE 0.9% 500 ML 500 ML IVPB SCH (17:20)
[2022-12-16 19:59] LABS: Glucose,Whole Blood 125 mg/dL (70-110)
[2022-12-16] MEDS: amLODIPine 5 MG TAB PO SCH (20:15)
[2022-12-16] MEDS: ATORVASTATIN 80 MG TAB PO SCH (20:15)
[2022-12-16] MEDS: TAMSULOSIN 0.4 MG CAP.ER.24H PO SCH (20:15)
[2022-12-16] MEDS: INSULIN DETEMIR (LEVEMIR) 100 UNIT/ML SYR SQ SCH (20:15)
[2022-12-16] MEDS: BICALUTAMIDE 50 MG TAB PO SCH (20:41)
[2022-12-17 06:57] LABS: Glucose,Whole Blood 228 mg/dL (70-110)
[2022-12-17] MEDS: INSULIN ASPART (NovoLOG) 100 UNIT/ML VIAL SQ SCH ×4 (07:03→21:10)
[2022-12-17 07:09] LABS: Basophils % (A) 0 %; Eosinophils % (A) 0 %; HCT 32.2 % (39.0-53.0); HGB 10.9 gm/dL (13.0-17.5); Lymphocytes # (A) 0.6 k/uL (1.0-4.8); Lymphocytes % (A) 5 %; MCH 30.4 pg (25.0-35.0); MCHC 33.8 g/dL (31.0-37.0); MCV 89.8 fL (80.0-100.0); Monocytes # (A) 0.8 k/uL (0-1.0); Monocytes % (A) 7 %; Neutrophils # (A) 9.7 k/uL (1.3-7.7); Neutrophils % (A) 86 %; Platelet Count 172 k/uL (150-450); RBC 3.59 m/uL (4.30-5.90); WBC 11.4 k/uL (3.8-10.6)
[2022-12-17 07:14] LABS: INR 4.2 (<1.2); Prothrombin Time 40.9 sec (9.0-12.0)
[2022-12-17] MEDS: SYMBICORT 80-4.5 MCG INHALER INHALATION SCH ×2 (08:49→20:42)
[2022-12-17] MEDS: METOPROLOL SUCCINATE (ER) 50 MG TAB.ER.24H PO SCH (09:31)
[2022-12-17] MEDS: GABAPENTIN 300 MG CAP PO SCH ×2 (09:31→21:10)
[2022-12-17] MEDS: VENLAFAXINE HCL 75 MG TAB PO SCH ×2 (09:32→22:23)
[2022-12-17] MEDS: FERROUS SULFATE 325 MG TAB PO SCH ×2 (09:32→21:09)
[2022-12-17] MEDS: hydroCHLOROthiazide 25 MG TAB PO SCH (09:32)
[2022-12-17] MEDS: AMIODARONE 100 MG TAB PO SCH (09:32)
[2022-12-17] MEDS: FUROSEMIDE 20 MG TAB PO SCH ×2 (09:32→16:07)
[2022-12-17] MEDS: predniSONE 20 MG TAB PO SCH (09:32)
[2022-12-17] MEDS: CALCIUM CARB-VIT D 500 MG-5 MCG TAB PO SCH ×2 (09:32→21:10)
[2022-12-17 10:17] LABS: African American GFR (CKD) 48 (>60 ml/min/1.73 sqM); Anion Gap 7 mmol/L; Blood Urea Nitrogen 33 mg/dL (9-20); Calcium 8.8 mg/dL (8.4-10.2); Carbon Dioxide 31 mmol/L (22-30); Chloride 97 mmol/L (98-107); Glucose 198 mg/dL (74-99); Non-African American GFR(CKD) 42 (>60 ml/min/1.73 sqM); Potassium 3.1 mmol/L (3.5-5.1); Sodium 135 mmol/L (137-145)
[2022-12-17] MEDS ORDERED: POTASSIUM CHLORIDE ER 20 MEQ TAB.ER PO STA (10:31)
--- NOTE | 2022-12-17 10:38 | P.PN ---
Subjective Progress Note Date: 12/17/22 Principal diagnosis: Right knee hemarthrosis, knee pain Patient is 87 year old male seen at bedside this morning. We're following him for right knee pain and hemarthrosis. He feels his knee pain is improved today. He has no new complaints. He denies fever or chills, numbness, tingling, calf pain or other. Objective - Vital Signs Vital signs: Vital Signs Temp 97.9 F 12/17/22 08:00 Pulse 59 L 12/17/22 08:00 Resp 18 12/17/22 08:00 BP 150/73 12/17/22 08:00 Pulse Ox 98 12/17/22 08:00 FiO2 Intake & Output 12/16/22 12/17/22 12/17/22 18:59 06:59 18:59 Output Total 800 Balance -800 Output: Urine 800 Other: Voiding Method External Catheter # Voids 1 1 - Exam Inspection of the right knee shows a mild effusion. There is no erythema or deformity. It is not hot to touch. It is nontender. He has no pain with full extension. He has some mild pain with flexion to 90. The knee is ligamentously stable. Calf is soft nontender. Neurovascular status is intact throughout the right lower extremity with motor and sensation grossly intact. 1+ dorsalis pedis and less than 2 second capillary refill is present. - Constitutional General appearance: Present: no acute distress - Labs CBC & Chem 7: 12/17/22 06:29 12/17/22 06:29 Labs: Abnormal Lab Results - Last 24 Hours (Table) 12/16/22 12/16/22 12/16/22 Range/Units 10:59 10:59 10:59 WBC 13.9 H (3.8-10.6) k/uL RBC 3.88 L (4.30-5.90) m/uL Hgb 11.8 L (13.0-17.5) gm/dL Hct 34.6 L (39.0-53.0) % Plt Count 131 L (150-450) k/uL Neutrophils # (1.3-7.7) k/uL Lymphocytes # (1.0-4.8) k/uL PT 29.8 H (9.0-12.0) sec INR 3.1 H (<1.2) Sodium 135 L (137-145) mmol/L Potassium (3.5-5.1) mmol/L Chloride 97 L (98-107) mmol/L Carbon Dioxide (22-30) mmol/L BUN 32 H (9-20) mg/dL Creatinine 1.46 H (0.66-1.25) mg/dL Glucose 114 H (74-99) mg/dL POC Glucose (mg/dL) (70-110) mg/dL Total Bilirubin 1.4 H (0.2-1.3) mg/dL 12/16/22 12/16/22 12/16/22 Range/Units 11:32 16:33 19:58 WBC (3.8-10.6) k/uL RBC (4.30-5.90) m/uL Hgb (13.0-17.5) gm/dL Hct (39.0-53.0) % Plt Count (150-450) k/uL Neutrophils # (1.3-7.7) k/uL Lymphocytes # (1.0-4.8) k/uL PT (9.0-12.0) sec INR (<1.2) Sodium (137-145) mmol/L Potassium (3.5-5.1) mmol/L Chloride (98-107) mmol/L Carbon Dioxide (22-30) mmol/L BUN (9-20) mg/dL Creatinine (0.66-1.25) mg/dL Glucose (74-99) mg/dL POC Glucose (mg/dL) 125 H 163 H 125 H (70-110) mg/dL Total Bilirubin (0.2-1.3) mg/dL 12/17/22 12/17/22 12/17/22 Range/Units 06:29 06:29 06:29 WBC 11.4 H (3.8-10.6) k/uL RBC 3.59 L (4.30-5.90) m/uL Hgb 10.9 L (13.0-17.5) gm/dL Hct 32.2 L (39.0-53.0) % Plt Count (150-450) k/uL Neutrophils # 9.7 H (1.3-7.7) k/uL Lymphocytes # 0.6 L (1.0-4.8) k/uL PT 40.9 H (9.0-12.0) sec INR 4.2 H (<1.2) Sodium 135 L (137-145) mmol/L Potassium 3.1 L (3.5-5.1) mmol/L Chloride 97 L (98-107) mmol/L Carbon Dioxide 31 H (22-30) mmol/L BUN 33 H (9-20) mg/dL Creatinine 1.51 H (0.66-1.25) mg/dL Glucose 198 H (74-99) mg/dL POC Glucose (mg/dL) (70-110) mg/dL Total Bilirubin (0.2-1.3) mg/dL 12/17/22 Range/Units 06:54 WBC (3.8-10.6) k/uL RBC (4.30-5.90) m/uL Hgb (13.0-17.5) gm/dL Hct (39.0-53.0) % Plt Count (150-450) k/uL Neutrophils # (1.3-7.7) k/uL Lymphocytes # (1.0-4.8) k/uL PT (9.0-12.0) sec INR (<1.2) Sodium (137-145) mmol/L Potassium (3.5-5.1) mmol/L Chloride (98-107) mmol/L Carbon Dioxide (22-30) mmol/L BUN (9-20) mg/dL Creatinine (0.66-1.25) mg/dL Glucose (74-99) mg/dL POC Glucose (mg/dL) 228 H (70-110) mg/dL Total Bilirubin (0.2-1.3) mg/dL Microbiology - Last 24 Hours (Table) 12/15/22 09:45 Gram Stain - Preliminary Knee - Right Body Fluid Culture - Preliminary Assessment and Plan (1) Osteoarthritis of right knee Narrative/Plan: No plans for immediate surgical intervention. There continues to be no signs of septic arthritis. He is afebrile. His white blood cell count is improved. His INR however is 4.2. Recommend adjusting his anticoagulation to reduce his INR. Recommend continued rest, ice, elevation, pain management. Will continue to monitor and make further recommendations as appropriate. He may be discharged or transferred to [facility] from an orthopedic standpoint when okay with internal medicine. Current Visit: Yes Status: Acute Priority: Medium Code(s): M17.11 - UNILATERAL PRIMARY OSTEOARTHRITIS, RIGHT KNEE SNOMED Code(s): 759257262112007 (2) Hemarthrosis Current Visit: Yes Status: Acute Priority: Medium Code(s): M25.00 - HEMARTHROSIS, UNSPECIFIED JOINT SNOMED Code(s): 79553475
[2022-12-17 11:23] LABS: Glucose,Whole Blood 286 mg/dL (70-110)
--- NOTE | 2022-12-17 13:47 | P.PN ---
Subjective Progress Note Date: 12/17/22 Hospital Course: 87-year-old male with a past medical history of CAD with stents and pacemaker placement, atrial fibrillation status post cardiac ablation on Coumadin, pulmonary hypertension, aortic stenosis, HFrEF with previously known EF of 25- 30%, stage IIIB CKD, hypertension, hyperlipidemia, prostate cancer status post radiation, COPD, obstructive sleep apnea CPAP dependent, and insulin-dependent diabetes mellitus. He presented to the emergency department secondary to right knee pain and swelling accompanied by difficulty in ambulation and weightbearing. Patient had a mechanical fall onto right knee on 12/13/22 and has since had significantly worsening swelling and pain. Patient was initially seen in the ER on 12/14/22 and underwent x-ray of right knee which was negative for acute fracture or dislocation showing severe narrowing of the medial and lateral tibiofemoral joint spaces with moderate narrowing of the patellofemoral joint space with moderate suprapatellar joint effusion. Patient was discharged home and returned today secondary to continued swelling and pain and now unable to bear weight on right leg. Labs were completed showing leukocytosis with WBC count of 12.1. INR was therapeutic at 2.9. BMP showing elevated renal function with BUN 37, creatinine 1.67, and GFR of 37 (baseline creatinine 1.6.). Right knee was aspirated in the ED with reports of 60 mL of bloody right knee aspirate. Orthopedic surgery consulted. Synovial fluid analysis shows 10,000 nucleated cells, 4 78,000 RBCs, uric acid crystals. Patient started on oral prednisone. Knee pain and swelling improved. INR still supratherapeutic. Subjective: Seen and examined at bedside. No acute events overnight. He claims that his right knee pain is improving. Pertinent positives and negatives as discussed above, a complete review of systems was performed and all other systems are negative. Vitals Signs Reviewed. General: Nontoxic, no distress and appears stated age. Derm: Skin warm and dry, normal coloration for ethnicity. Head: Atraumatic, normocephalic and symmetric. Eyes: EOMs intact, no lid lag, and anicteric sclera Mouth: no lip lesions, mucus membranes moist Cardiovascular: regular rate and rhythm with normal S1S2, stage III systolic murmur, positive posterior tibial pulses bilaterally, and cap refill < 2 seconds. Lungs: Respirations even, regular, and unlabored on room air. Lungs CTA bilaterally, no rhonchi, no rales, no wheezing, and no accessory muscle usage. Abdominal: soft, nontender to palpation, no guarding, no appreciable organomegaly Ext: ROM intact. No gross muscle atrophy, no edema, no contractures. Able to mobilize right knee, no significant effusion Neuro: Speech clear, face symmetrical and CN II-XII grossly intact with no noted focal neuro deficits Psych: Alert and oriented to person, place, time, and situation. Appropriate and pleasant affect. Data Reviewed Today: Pertinent Labs: WBC 11.4, hemoglobin 10.9, INR 4.2, potassium 3.1, creatinine 1.51, blood sugars range between 198-286 Imaging: No new imaging Assessment and Plan: Hemarthrosis, right knee gouty monoarthropathy right knee Leukocytosis, likely reactive, improving Mechanical fall Supratherapeutic INR Hypokalemia Type 2 diabetes -Orthopedic surgery note reviewed, no signs of septic arthritis, clear for discharge from their standpoint -Patient currently on oral prednisone 40 mg daily -May be able to taper oral prednisone as patient already had arthrocentesis when stable -INR elevated at 4.2 currently off of Coumadin -If tomorrow it goes above 4.5, we will give oral vitamin K -40 oral potassium given -Levemir increased to 30 units, and continue sliding scale insulin, expect his hyperglycemia given oral steroids, will adjust insulin therapy accordingly -Repeat CBC and BMP tomorrow -Repeat INR Chronic conditions: CAD with stents and pacemaker Atrial fibrillation status post cardiac ablation Pulmonary hypertension Aortic stenosis HFrEF with previously known EF of 25-30% Stage IIIb CKD stable at baseline Hypertension Hyperlipidemia Prostate cancer status post radiation COPD Obstructive sleep apnea Insulin-dependent diabetes mellitus -Hold aspirin and Coumadin pending further recommendations from orthopedic surgery. (INR was therapeutic at 2.9) -Patient to continue daily medication regimen with amiodarone 100 mg daily, felodipine 5 mg daily, atorvastatin 80 mg nightly, Symbicort 2 puffs twice daily, ferrous sulfate 325 mg twice daily, Lasix 20 mg twice daily, Neurontin 300 mg twice daily, hydrochlorothiazide 25 mg daily metoprolol 50 mg daily, Flomax 0.4 mg nightly, and Effexor 150 mg each morning and 75 mg nightly. -Order placed for CPAP nightly and will napping DVT ppx: INR supratherapeutic Code status: Full code Anticipated discharge place: Pending clinical course Anticipated discharge time: Pending clinical course Objective - Vital Signs Vital signs: Vital Signs Temp 97.9 F 12/17/22 08:00 Pulse 59 L 12/17/22 08:00 Resp 18 12/17/22 08:00 BP 150/73 12/17/22 08:00 Pulse Ox 98 12/17/22 08:00 FiO2 Intake & Output 12/16/22 12/17/22 12/17/22 18:59 06:59 18:59 Output Total 800 Balance -800 Output: Urine 800 Other: Voiding Method External Catheter # Voids 1 1 - Labs CBC & Chem 7: 12/17/22 06:29 12/17/22 06:29 Labs: Abnormal Lab Results - Last 24 Hours (Table) 12/16/22 12/16/22 12/17/22 Range/Units 16:33 19:58 06:29 WBC 11.4 H (3.8-10.6) k/uL RBC 3.59 L (4.30-5.90) m/uL Hgb 10.9 L (13.0-17.5) gm/dL Hct 32.2 L (39.0-53.0) % Neutrophils # 9.7 H (1.3-7.7) k/uL Lymphocytes # 0.6 L (1.0-4.8) k/uL PT (9.0-12.0) sec INR (<1.2) Sodium (137-145) mmol/L Potassium (3.5-5.1) mmol/L Chloride (98-107) mmol/L Carbon Dioxide (22-30) mmol/L BUN (9-20) mg/dL Creatinine (0.66-1.25) mg/dL Glucose (74-99) mg/dL POC Glucose (mg/dL) 163 H 125 H (70-110) mg/dL 12/17/22 12/17/22 12/17/22 Range/Units 06:29 06:29 06:54 WBC (3.8-10.6) k/uL RBC (4.30-5.90) m/uL Hgb (13.0-17.5) gm/dL Hct (39.0-53.0) % Neutrophils # (1.3-7.7) k/uL Lymphocytes # (1.0-4.8) k/uL PT 40.9 H (9.0-12.0) sec INR 4.2 H (<1.2) Sodium 135 L (137-145) mmol/L Potassium 3.1 L (3.5-5.1) mmol/L Chloride 97 L (98-107) mmol/L Carbon Dioxide 31 H (22-30) mmol/L BUN 33 H (9-20) mg/dL Creatinine 1.51 H (0.66-1.25) mg/dL Glucose 198 H (74-99) mg/dL POC Glucose (mg/dL) 228 H (70-110) mg/dL 12/17/22 Range/Units 11:22 WBC (3.8-10.6) k/uL RBC (4.30-5.90) m/uL Hgb (13.0-17.5) gm/dL Hct (39.0-53.0) % Neutrophils # (1.3-7.7) k/uL Lymphocytes # (1.0-4.8) k/uL PT (9.0-12.0) sec INR (<1.2) Sodium (137-145) mmol/L Potassium (3.5-5.1) mmol/L Chloride (98-107) mmol/L Carbon Dioxide (22-30) mmol/L BUN (9-20) mg/dL Creatinine (0.66-1.25) mg/dL Glucose (74-99) mg/dL POC Glucose (mg/dL) 286 H (70-110) mg/dL Microbiology - Last 24 Hours (Table) 12/15/22 09:45 Gram Stain - Preliminary Knee - Right Body Fluid Culture - Preliminary
[2022-12-17 16:52] LABS: Glucose,Whole Blood 403 mg/dL (70-110)
[2022-12-17 20:46] LABS: Glucose,Whole Blood 451 mg/dL (70-110)
[2022-12-17] MEDS: TAMSULOSIN 0.4 MG CAP.ER.24H PO SCH (21:09)
[2022-12-17] MEDS: ATORVASTATIN 80 MG TAB PO SCH (21:10)
[2022-12-17] MEDS: INSULIN DETEMIR (LEVEMIR) 100 UNIT/ML SYR SQ SCH (21:10)
[2022-12-17] MEDS: amLODIPine 5 MG TAB PO SCH (21:10)
[2022-12-17] MEDS: BICALUTAMIDE 50 MG TAB PO SCH (21:11)
[2022-12-17] MEDS ORDERED: INSULIN ASPART (NovoLOG) 100 UNIT/ML VIAL SQ ONE (22:17)
[2022-12-17] MEDS: VANCOMYCIN 1,500 MG in SODIUM CHLORIDE 0.9% 500 ML 500 ML IVPB SCH (22:27)
[2022-12-18 06:16] LABS: Glucose,Whole Blood 176 mg/dL (70-110)
[2022-12-18] MEDS: INSULIN ASPART (NovoLOG) 100 UNIT/ML VIAL SQ SCH ×4 (06:42→20:46)
[2022-12-18 07:35] LABS: Basophils % (A) 0 %; Eosinophils % (A) 1 %; HCT 30.9 % (39.0-53.0); HGB 10.4 gm/dL (13.0-17.5); Lymphocytes # (A) 0.7 k/uL (1.0-4.8); Lymphocytes % (A) 8 %; MCH 30.4 pg (25.0-35.0); MCHC 33.6 g/dL (31.0-37.0); MCV 90.4 fL (80.0-100.0); Mean Platelet Volume 10.1; Monocytes # (A) 0.7 k/uL (0-1.0); Monocytes % (A) 8 %; Neutrophils # (A) 7.2 k/uL (1.3-7.7); Neutrophils % (A) 82 %; Platelet Count 199 k/uL (150-450); RBC 3.41 m/uL (4.30-5.90); RDW 13.8 % (11.5-15.5); WBC 8.8 k/uL (3.8-10.6)
[2022-12-18 07:42] LABS: INR 4.6 (<1.2); Prothrombin Time 44.9 sec (9.0-12.0)
[2022-12-18 08:25] LABS: ALT 16 U/L (4-49); AST 24 U/L (17-59); African American GFR (CKD) 47 (>60 ml/min/1.73 sqM); Albumin 3.3 g/dL (3.5-5.0); Albumin/Globulin Ratio 1.2; Alkaline Phosphatase 70 U/L (38-126); Anion Gap 9 mmol/L; Blood Urea Nitrogen 42 mg/dL (9-20); Calcium 8.8 mg/dL (8.4-10.2); Carbon Dioxide 27 mmol/L (22-30); Chloride 98 mmol/L (98-107); Globulin 2.7 g/dL; Glucose 149 mg/dL (74-99); Non-African American GFR(CKD) 40 (>60 ml/min/1.73 sqM); Potassium 3.5 mmol/L (3.5-5.1); Sodium 134 mmol/L (137-145); Total Bilirubin 0.7 mg/dL (0.2-1.3)
[2022-12-18] MEDS ORDERED: PHYTONADIONE ORAL 5 MG/5 ML ORAL.SYRG PO STA (08:36)
[2022-12-18] MEDS: predniSONE 20 MG TAB PO SCH (08:48)
[2022-12-18] MEDS: CALCIUM CARB-VIT D 500 MG-5 MCG TAB PO SCH ×2 (08:48→20:47)
[2022-12-18] MEDS: FERROUS SULFATE 325 MG TAB PO SCH ×2 (08:48→20:47)
[2022-12-18] MEDS: METOPROLOL SUCCINATE (ER) 50 MG TAB.ER.24H PO SCH (08:49)
[2022-12-18] MEDS: VENLAFAXINE HCL 75 MG TAB PO SCH ×2 (08:49→20:47)
[2022-12-18] MEDS: hydroCHLOROthiazide 25 MG TAB PO SCH (08:49)
[2022-12-18] MEDS: FUROSEMIDE 20 MG TAB PO SCH ×2 (08:49→16:17)
[2022-12-18] MEDS: GABAPENTIN 300 MG CAP PO SCH ×2 (08:49→20:47)
[2022-12-18] MEDS: AMIODARONE 100 MG TAB PO SCH (08:50)
[2022-12-18] MEDS: SYMBICORT 80-4.5 MCG INHALER INHALATION SCH ×2 (09:03→19:54)
[2022-12-18 11:24] LABS: Glucose,Whole Blood 184 mg/dL (70-110)
--- NOTE | 2022-12-18 13:34 | XR ---
EXAMINATION TYPE: XR ankle complete RT DATE OF EXAM: 12/18/2022 COMPARISON: NONE HISTORY: Pain FINDINGS: Three views of the ankle demonstrate the ankle mortise to be intact and symmetric. The joint spaces are preserved. The osseous structures are intact. Soft tissue edema. Vascular calcifications and pe s planus deformity. IMPRESSION: 1. No definite acute fracture or dislocation, if symptoms persist follow-up study in 7 to 10 days wou ld be suggested. 2. Diffuse soft tissue edema.
--- NOTE | 2022-12-18 14:42 | P.PN ---
Subjective Progress Note Date: 12/18/22 Hospital Course: 87-year-old male with a past medical history of CAD with stents and pacemaker placement, atrial fibrillation status post cardiac ablation on Coumadin, pulmonary hypertension, aortic stenosis, HFrEF with previously known EF of 25- 30%, stage IIIB CKD, hypertension, hyperlipidemia, prostate cancer status post radiation, COPD, obstructive sleep apnea CPAP dependent, and insulin-dependent diabetes mellitus. He presented to the emergency department secondary to right knee pain and swelling accompanied by difficulty in ambulation and weightbearing. Patient had a mechanical fall onto right knee on 12/13/22 and has since had significantly worsening swelling and pain. Patient was initially seen in the ER on 12/14/22 and underwent x-ray of right knee which was negative for acute fracture or dislocation showing severe narrowing of the medial and lateral tibiofemoral joint spaces with moderate narrowing of the patellofemoral joint space with moderate suprapatellar joint effusion. Patient was discharged home and returned today secondary to continued swelling and pain and now unable to bear weight on right leg. Labs were completed showing leukocytosis with WBC count of 12.1. INR was therapeutic at 2.9. BMP showing elevated renal function with BUN 37, creatinine 1.67, and GFR of 37 (baseline creatinine 1.6.). Right knee was aspirated in the ED with reports of 60 mL of bloody right knee aspirate. Orthopedic surgery consulted. Synovial fluid analysis shows 10,000 nucleated cells, 4 78,000 RBCs, uric acid crystals. Patient started on oral prednisone. Knee pain and swelling improved. INR still supratherapeutic. Vitamin K given Subjective: Seen and examined at bedside. No acute events overnight. Right knee pain is improving. Pertinent positives and negatives as discussed above, a complete review of systems was performed and all other systems are negative. Vitals Signs Reviewed. General: Nontoxic, no distress and appears stated age. Derm: Skin warm and dry, normal coloration for ethnicity. Head: Atraumatic, normocephalic and symmetric. Eyes: EOMs intact, no lid lag, and anicteric sclera Mouth: no lip lesions, mucus membranes moist Cardiovascular: regular rate and rhythm with normal S1S2, stage III systolic murmur, positive posterior tibial pulses bilaterally, and cap refill < 2 seconds. Lungs: Respirations even, regular, and unlabored on room air. Lungs CTA bilaterally, no rhonchi, no rales, no wheezing, and no accessory muscle usage. Abdominal: soft, nontender to palpation, no guarding, no appreciable organomegaly Ext: ROM intact. No gross muscle atrophy, no edema, no contractures. Able to mobilize right knee, no significant effusion Neuro: Speech clear, face symmetrical and CN II-XII grossly intact with no noted focal neuro deficits Psych: Alert and oriented to person, place, time, and situation. Appropriate and pleasant affect. Data Reviewed Today: Pertinent Labs: WBC 8.8, hemoglobin 10.4, INR 4.6, creatinine 1.5 , Blood sugars range between 140-184 Imaging: No new imaging Assessment and Plan: Hemarthrosis, right knee gouty monoarthropathy right knee Leukocytosis, likely reactive, resolved Mechanical fall Supratherapeutic INR Hypokalemia, resolved Type 2 diabetes -Orthopedic surgery following, clear for discharge from their standpoint -Patient currently on oral prednisone 40 mg daily -May be able to taper oral prednisone as patient already had arthrocentesis -INR elevated at 4.6 currently off of Coumadin, vitamin K oral given -Repeat INR -Levemir 30 units, and continue sliding scale insulin, expect his hyperglycemia given oral steroids, will adjust insulin therapy accordingly -Patient may be able to discharge tomorrow if INR improved. His cotherapy recommending subacute rehab, however patient preferred to go home Chronic conditions: CAD with stents and pacemaker Atrial fibrillation status post cardiac ablation Pulmonary hypertension Aortic stenosis HFrEF with previously known EF of 25-30% Stage IIIb CKD stable at baseline Hypertension Hyperlipidemia Prostate cancer status post radiation COPD Obstructive sleep apnea Insulin-dependent diabetes mellitus -Hold aspirin and Coumadin pending further recommendations from orthopedic surgery. (INR was therapeutic at 2.9 on admission) -Patient to continue daily medication regimen with amiodarone 100 mg daily, felodipine 5 mg daily, atorvastatin 80 mg nightly, Symbicort 2 puffs twice daily, ferrous sulfate 325 mg twice daily, Lasix 20 mg twice daily, Neurontin 300 mg twice daily, hydrochlorothiazide 25 mg daily metoprolol 50 mg daily, Flomax 0.4 mg nightly, and Effexor 150 mg each morning and 75 mg nightly. -Order placed for CPAP nightly and will napping DVT ppx: INR supratherapeutic Code status: Full code Anticipated discharge place: Home with home care versus subacute rehab Anticipated discharge time: Possibly tomorrow if going home Objective - Vital Signs Vital signs: Vital Signs Temp 98.4 F 12/18/22 13:42 Pulse 65 12/18/22 13:42 Resp 17 12/18/22 13:42 BP 144/68 12/18/22 13:42 Pulse Ox 95 12/18/22 13:42 FiO2 Intake & Output 12/17/22 12/18/22 12/18/22 18:59 06:59 18:59 Output Total 625 650 Balance -625 -650 Output: Urine 625 650 Other: Voiding Method External Catheter External Catheter External Catheter - Labs CBC & Chem 7: 12/18/22 06:02 12/18/22 06:02 Labs: Abnormal Lab Results - Last 24 Hours (Table) 12/17/22 12/17/22 12/18/22 Range/Units 16:50 20:44 06:02 RBC 3.41 L (4.30-5.90) m/uL Hgb 10.4 L (13.0-17.5) gm/dL Hct 30.9 L (39.0-53.0) % Lymphocytes # 0.7 L (1.0-4.8) k/uL PT (9.0-12.0) sec INR (<1.2) Sodium (137-145) mmol/L BUN (9-20) mg/dL Creatinine (0.66-1.25) mg/dL Glucose (74-99) mg/dL POC Glucose (mg/dL) 403 H 451 H (70-110) mg/dL Total Protein (6.3-8.2) g/dL Albumin (3.5-5.0) g/dL 12/18/22 12/18/22 12/18/22 Range/Units 06:02 06:02 06:15 RBC (4.30-5.90) m/uL Hgb (13.0-17.5) gm/dL Hct (39.0-53.0) % Lymphocytes # (1.0-4.8) k/uL PT 44.9 H (9.0-12.0) sec INR 4.6 H (<1.2) Sodium 134 L (137-145) mmol/L BUN 42 H (9-20) mg/dL Creatinine 1.55 H (0.66-1.25) mg/dL Glucose 149 H (74-99) mg/dL POC Glucose (mg/dL) 176 H (70-110) mg/dL Total Protein 6.0 L (6.3-8.2) g/dL Albumin 3.3 L (3.5-5.0) g/dL 12/18/22 Range/Units 11:23 RBC (4.30-5.90) m/uL Hgb (13.0-17.5) gm/dL Hct (39.0-53.0) % Lymphocytes # (1.0-4.8) k/uL PT (9.0-12.0) sec INR (<1.2) Sodium (137-145) mmol/L BUN (9-20) mg/dL Creatinine (0.66-1.25) mg/dL Glucose (74-99) mg/dL POC Glucose (mg/dL) 184 H (70-110) mg/dL Total Protein (6.3-8.2) g/dL Albumin (3.5-5.0) g/dL Microbiology - Last 24 Hours (Table) 12/15/22 09:45 Gram Stain - Preliminary Knee - Right Body Fluid Culture - Preliminary 12/16/22 10:59 Blood Culture - Preliminary Blood
[2022-12-18 16:54] LABS: Glucose,Whole Blood 370 mg/dL (70-110)
[2022-12-18] MEDS ORDERED: VANCOMYCIN TROUGH DUE 1 EACH MISC MISCELLANE ONE (18:00)
[2022-12-18 18:15] LABS: African American GFR (CKD) 46 (>60 ml/min/1.73 sqM); Non-African American GFR(CKD) 39 (>60 ml/min/1.73 sqM)
[2022-12-18] MEDS: VANCOMYCIN 1,500 MG in SODIUM CHLORIDE 0.9% 500 ML 500 ML IVPB SCH (20:03)
[2022-12-18 20:31] LABS: Glucose,Whole Blood 414 mg/dL (70-110)
[2022-12-18] MEDS: INSULIN DETEMIR (LEVEMIR) 100 UNIT/ML SYR SQ SCH (20:46)
[2022-12-18] MEDS: TAMSULOSIN 0.4 MG CAP.ER.24H PO SCH (20:47)
[2022-12-18] MEDS: amLODIPine 5 MG TAB PO SCH (20:47)
[2022-12-18] MEDS: BICALUTAMIDE 50 MG TAB PO SCH (20:47)
[2022-12-18] MEDS: ATORVASTATIN 80 MG TAB PO SCH (20:47)
[2022-12-19 05:24] LABS: Glucose,Whole Blood 152 mg/dL (70-110)
[2022-12-19] MEDS: INSULIN ASPART (NovoLOG) 100 UNIT/ML VIAL SQ SCH ×4 (06:23→21:59)
[2022-12-19 08:07] LABS: Basophils % (A) 0 %; Eosinophils % (A) 1 %; HCT 31.3 % (39.0-53.0); HGB 10.7 gm/dL (13.0-17.5); Lymphocytes % (A) 12 %; MCHC 34.2 g/dL (31.0-37.0); MCV 90.9 fL (80.0-100.0); Mean Platelet Volume 9.9; Monocytes # (A) 0.7 k/uL (0-1.0); Monocytes % (A) 8 %; Neutrophils # (A) 5.9 k/uL (1.3-7.7); Neutrophils % (A) 76 %; Platelet Count 214 k/uL (150-450); RBC 3.45 m/uL (4.30-5.90); RDW 13.8 % (11.5-15.5); WBC 7.8 k/uL (3.8-10.6)
[2022-12-19] MEDS: FERROUS SULFATE 325 MG TAB PO SCH ×2 (08:08→22:00)
[2022-12-19] MEDS: GABAPENTIN 300 MG CAP PO SCH ×2 (08:08→21:59)
[2022-12-19] MEDS: CALCIUM CARB-VIT D 500 MG-5 MCG TAB PO SCH ×2 (08:08→22:00)
[2022-12-19] MEDS: FUROSEMIDE 20 MG TAB PO SCH ×2 (08:08→17:22)
[2022-12-19] MEDS: hydroCHLOROthiazide 25 MG TAB PO SCH (08:08)
[2022-12-19] MEDS: predniSONE 20 MG TAB PO SCH (08:08)
[2022-12-19] MEDS: VENLAFAXINE HCL 75 MG TAB PO SCH ×2 (08:09→22:00)
[2022-12-19] MEDS: AMIODARONE 100 MG TAB PO SCH (08:09)
[2022-12-19] MEDS: METOPROLOL SUCCINATE (ER) 50 MG TAB.ER.24H PO SCH (08:09)
[2022-12-19 08:18] LABS: INR 1.1 (<1.2); Prothrombin Time 11.2 sec (9.0-12.0)
[2022-12-19 08:25] LABS: ALT 24 U/L (4-49); AST 38 U/L (17-59); African American GFR (CKD) 47 (>60 ml/min/1.73 sqM); Albumin 3.3 g/dL (3.5-5.0); Albumin/Globulin Ratio 1.3; Alkaline Phosphatase 78 U/L (38-126); Anion Gap 8 mmol/L; Blood Urea Nitrogen 37 mg/dL (9-20); Carbon Dioxide 31 mmol/L (22-30); Chloride 99 mmol/L (98-107); Globulin 2.6 g/dL; Glucose 123 mg/dL (74-99); Non-African American GFR(CKD) 40 (>60 ml/min/1.73 sqM); Potassium 3.4 mmol/L (3.5-5.1); Sodium 138 mmol/L (137-145); Total Bilirubin 0.7 mg/dL (0.2-1.3); Total Protein 5.9 g/dL (6.3-8.2)
[2022-12-19 08:42] LABS: African American GFR (CKD) 48 (>60 ml/min/1.73 sqM); Non-African American GFR(CKD) 42 (>60 ml/min/1.73 sqM)
[2022-12-19] MEDS: SYMBICORT 80-4.5 MCG INHALER INHALATION SCH ×2 (08:48→20:01)
[2022-12-19 11:36] LABS: Glucose,Whole Blood 333 mg/dL (70-110)
[2022-12-19 16:47] LABS: Glucose,Whole Blood 275 mg/dL (70-110)
[2022-12-19] MEDS ORDERED: POTASSIUM CHLORIDE ER 20 MEQ TAB.ER PO STA (17:20)
--- NOTE | 2022-12-19 17:24 | P.PN ---
Subjective Progress Note Date: 12/19/22 (delayed charting seen at 1350) Patient is an 87-year-old male with atrial fibrillation status post cardiac ablation on Coumadin, CAD with stents and pacemaker placement, pulmonary hypert ension, aortic stenosis, HFrEF with previously known EF of 25-30%, CKD stage IIIB , hypertension, hyperlipidemia, COPD, obstructive sleep apnea CPAP dependent, and insulin-dependent diabetes mellitus who presented to the emergency department for right knee pain and swelling reulting in difficulty am bulating after a mechanical fall onto right knee on 12/13/22. Hes initially seen in the ER on 12/14/22 and was discharged home after evaluation showed no fracture, he returned as he was unable to ambuate. Laboratory analysis was remarkable for a WBC of 12.1. INR 2.9, BUN 37, creatinine 1.67, and GFR of 37 (baseline creatinine 1.6.). His right knee was aspirated in the ED with reports of 60 mL of bloody right knee aspirate. Orthopedic surgery consulted. Synovial fluid analysis shows 10,000 nucleated cells, 4 78,000 RBCs, uric acid crystals. CUlture was negative for infection/ Patient started on oral prednisone. Knee pain and swelling improved. Despite multiple days without Coumadin his INR remained supratherapeutic and he was given a dose of vitamin K on 12/18/22. Patient seen and examined at bedside with present. Initially the patient was offered the option of subacute rehab but he declined. is now saying she is unable to care for him at home as he has had multiple falls since the winter of this year. He is now agreeable to rehab. He continues to have some pain in his right knee but it is getting better. She reports he is still struggling to ambulate on his own and she is unable to help lift him from the chair. He denies any chest pain or shortness of breath. Vital signs reviewed General: nontoxic, no distress, appears at stated age Cardiovascular: S1S2 reg, no murmur, positive posterior tibial pulse bilateral, Lungs: CTA bilateral, no rhonchi, no rales , no accessory muscle use Abdominal: soft, nontender to palpation, no guarding, no appreciable organomegaly Ext: no gross muscle atrophy, no edema b/l lower extremities, no contractures, right knee without any extensive swelling or erythema Neuro: CN II-XI grossly intact, no focal neuro deficits Psych: Alert, oriented, appropriate affect Assessment/Plan: Hemarthrosis, right knee gouty monoarthropathy right knee Debility Leukocytosis, likely reactive, resolved Mechanical fall Supratherapeutic INR, resolved Paroxysmal atrial fibrillation Hypokalemia, resolved Type 2 diabetes CKD stage IIIb with baseline GFR 45 -Start Lovenox 100 mg twice daily to bridge to therapeutic INR as it is currently 1.1. Repeat INR in a.m. -Potassium 20 mg oral 1 -Discontinue vancomycin -PT/OT recommendations -Fall precautions -Sliding-scale insulin, Levemir 30 units at night, follow blood sugars -Prednisone 40 mg daily -Amiodarone 100 mg daily Chronic conditions: CAD with stents and pacemaker Pulmonary hypertension Aortic stenosis HFrEF with previously known EF of 25-30% Hypertension Hyperlipidemia Prostate cancer status post radiation COPD Obstructive sleep apnea -Norvasc 5 mg at night, Lipitor 80 mg at night, Lasix 20 mg twice daily, hydrochlorothiazide 25 mg daily, metoprolol 50 mg daily Imaging: None new for review Data Review: Labs reviewed and remarkable for INR of 1.1, hemoglobin 10.7, BUN 37, creatinine 1.55 Vitals reviewed. Patient afebrile for the last 24 hours. Temperature 98.3, pulse 61, respirations 16, blood pressure 132/68, O2 sat 98% on room air DVT prophylaxis: Lovenox Discussed with: Patient, Anticipated discharge date: 12/22/[address]: [facility] This dictation was prepared using [place] voice recognition software. Though every attempt is made to correct errors during dictation some may still exist. Objective - Vital Signs Vital signs: Vital Signs Temp 98.3 F 12/19/22 07:29 Pulse 61 12/19/22 07:29 Resp 16 12/19/22 07:29 BP 132/68 12/19/22 07:29 Pulse Ox 98 12/19/22 07:29 FiO2 Intake & Output 12/18/22 12/19/22 12/19/22 18:59 06:59 18:59 Output Total 500 650 Balance -500 -650 Output: Urine 500 650 Other: Voiding Method External Catheter - Labs CBC & Chem 7: 12/19/22 06:29 12/19/22 06:29 Labs: Abnormal Lab Results - Last 24 Hours (Table) 12/18/22 12/18/22 12/19/22 Range/Units 17:34 20:30 05:22 RBC (4.30-5.90) m/uL Hgb (13.0-17.5) gm/dL Hct (39.0-53.0) % Potassium (3.5-5.1) mmol/L Carbon Dioxide (22-30) mmol/L BUN (9-20) mg/dL Creatinine 1.58 H (0.66-1.25) mg/dL Glucose (74-99) mg/dL POC Glucose (mg/dL) 414 H 152 H (70-110) mg/dL Total Protein (6.3-8.2) g/dL Albumin (3.5-5.0) g/dL 12/19/22 12/19/22 12/19/22 Range/Units 06:29 06:29 06:29 RBC 3.45 L (4.30-5.90) m/uL Hgb 10.7 L (13.0-17.5) gm/dL Hct 31.3 L (39.0-53.0) % Potassium 3.4 L (3.5-5.1) mmol/L Carbon Dioxide 31 H (22-30) mmol/L BUN 37 H (9-20) mg/dL Creatinine 1.51 H 1.55 H (0.66-1.25) mg/dL Glucose 123 H (74-99) mg/dL POC Glucose (mg/dL) (70-110) mg/dL Total Protein 5.9 L (6.3-8.2) g/dL Albumin 3.3 L (3.5-5.0) g/dL 12/19/22 12/19/22 Range/Units 11:34 16:43 RBC (4.30-5.90) m/uL Hgb (13.0-17.5) gm/dL Hct (39.0-53.0) % Potassium (3.5-5.1) mmol/L Carbon Dioxide (22-30) mmol/L BUN (9-20) mg/dL Creatinine (0.66-1.25) mg/dL Glucose (74-99) mg/dL POC Glucose (mg/dL) 333 H 275 H (70-110) mg/dL Total Protein (6.3-8.2) g/dL Albumin (3.5-5.0) g/dL Microbiology - Last 24 Hours (Table) 12/16/22 10:59 Blood Culture - Preliminary Blood 12/15/22 09:45 Gram Stain - Preliminary Knee - Right Body Fluid Culture - Preliminary
[2022-12-19] MEDS ORDERED: WARFARIN 2 MG TAB PO ONE (18:00)
[2022-12-19 20:32] LABS: Glucose,Whole Blood 323 mg/dL (70-110)
[2022-12-19] MEDS: BICALUTAMIDE 50 MG TAB PO SCH (21:59)
[2022-12-19] MEDS: amLODIPine 5 MG TAB PO SCH (21:59)
[2022-12-19] MEDS: ENOXAPARIN 100 MG/ML SYRINGE SQ SCH (21:59)
[2022-12-19] MEDS: ATORVASTATIN 80 MG TAB PO SCH (21:59)
[2022-12-19] MEDS: INSULIN DETEMIR (LEVEMIR) 100 UNIT/ML SYR SQ SCH (21:59)
[2022-12-19] MEDS: TAMSULOSIN 0.4 MG CAP.ER.24H PO SCH (22:00)
[2022-12-20 05:36] LABS: Glucose,Whole Blood 96 mg/dL (70-110)
[2022-12-20] MEDS: INSULIN ASPART (NovoLOG) 100 UNIT/ML VIAL SQ SCH ×5 (05:52→21:56)
[2022-12-20 07:39] LABS: HCT 34.3 % (39.0-53.0); HGB 11.2 gm/dL (13.0-17.5); MCHC 32.7 g/dL (31.0-37.0); MCV 91.7 fL (80.0-100.0); Mean Platelet Volume 9.5; Platelet Count 229 k/uL (150-450); RBC 3.74 m/uL (4.30-5.90); RDW 13.7 % (11.5-15.5); WBC 7.8 k/uL (3.8-10.6)
[2022-12-20 07:51] LABS: Prothrombin Time 10.5 sec (9.0-12.0)
[2022-12-20 07:56] LABS: African American GFR (CKD) 48 (>60 ml/min/1.73 sqM); Anion Gap 3 mmol/L; Blood Urea Nitrogen 34 mg/dL (9-20); Calcium 9.5 mg/dL (8.4-10.2); Carbon Dioxide 36 mmol/L (22-30); Chloride 99 mmol/L (98-107); Glucose 81 mg/dL (74-99); Non-African American GFR(CKD) 41 (>60 ml/min/1.73 sqM); Potassium 3.4 mmol/L (3.5-5.1); Sodium 138 mmol/L (137-145)
[2022-12-20] MEDS: FERROUS SULFATE 325 MG TAB PO SCH ×2 (08:38→21:57)
[2022-12-20] MEDS: CALCIUM CARB-VIT D 500 MG-5 MCG TAB PO SCH ×2 (08:38→21:57)
[2022-12-20] MEDS: METOPROLOL SUCCINATE (ER) 50 MG TAB.ER.24H PO SCH (08:39)
[2022-12-20] MEDS: VENLAFAXINE HCL 75 MG TAB PO SCH ×2 (08:39→21:57)
[2022-12-20] MEDS: predniSONE 20 MG TAB PO SCH (08:39)
[2022-12-20] MEDS: FUROSEMIDE 20 MG TAB PO SCH ×2 (08:39→15:49)
[2022-12-20] MEDS: GABAPENTIN 300 MG CAP PO SCH ×2 (08:39→21:57)
[2022-12-20] MEDS: AMIODARONE 100 MG TAB PO SCH (08:39)
[2022-12-20] MEDS: hydroCHLOROthiazide 25 MG TAB PO SCH (08:39)
[2022-12-20] MEDS: ENOXAPARIN 100 MG/ML SYRINGE SQ SCH ×2 (08:39→21:56)
[2022-12-20] MEDS: SYMBICORT 80-4.5 MCG INHALER INHALATION SCH ×2 (09:30→20:03)
[2022-12-20 11:26] LABS: Glucose,Whole Blood 162 mg/dL (70-110)
[2022-12-20] MEDS ORDERED: POTASSIUM CHLORIDE ER 20 MEQ TAB.ER PO STA (14:54)
--- NOTE | 2022-12-20 14:58 | P.PN ---
Subjective Progress Note Date: 12/20/22 (delayed charting seen at 1145) Patient is an 87-year-old male with atrial fibrillation status post cardiac ablation on Coumadin, CAD with stents and pacemaker placement, pulmonary hypert ension, aortic stenosis, HFrEF with previously known EF of 25-30%, CKD stage IIIB , hypertension, hyperlipidemia, COPD, obstructive sleep apnea CPAP dependent, and insulin-dependent diabetes mellitus who presented to the emergency department for right knee pain and swelling reulting in difficulty am bulating after a mechanical fall onto right knee on 12/13/22. Hes initially seen in the ER on 12/14/22 and was discharged home after evaluation showed no fracture, he returned as he was unable to ambuate. Laboratory analysis was remarkable for a WBC of 12.1. INR 2.9, BUN 37, creatinine 1.67, and GFR of 37 (baseline creatinine 1.6.). His right knee was aspirated in the ED with reports of 60 mL of bloody right knee aspirate. Orthopedic surgery consulted. Synovial fluid analysis shows 10,000 nucleated cells, 4 78,000 RBCs, uric acid crystals. CUlture was negative for infection/ Patient started on oral prednisone. Knee pain and swelling improved. Despite multiple days without Coumadin his INR remained supratherapeutic and he was given a dose of vitamin K on 12/18/22. Patient seen and examined at bedside. He is doing okay. He denies any chest pain, shortness of breath. He denies any knee pain. Vital signs reviewed General: nontoxic, no distress, appears at stated age Cardiovascular: S1S2 reg, no murmur, positive posterior tibial pulse bilateral, Lungs: CTA bilateral, no rhonchi, no rales , no accessory muscle use Abdominal: soft, nontender to palpation, no guarding, no appreciable organomegaly Ext: no gross muscle atrophy, no edema b/l lower extremities, no contractures, r ight knee without any extensive swelling or erythema Neuro: CN II-XI grossly intact, no focal neuro deficits Psych: Alert, oriented, appropriate affect Assessment/Plan: Hemarthrosis, right knee gouty monoarthropathy right knee Debility Leukocytosis, likely reactive, resolved Mechanical fall Supratherapeutic INR, resolved Paroxysmal atrial fibrillation Hypokalemia, resolved Type 2 diabetes CKD stage IIIb with baseline GFR 45 -SContinue Lovenox 100 mg twice daily to bridge to therapeutic INR as it is currently 1.1. Repeat INR in a.m. -Potassium 20 mg oral 1 again today -PT/OT recommendations -Fall precautions -Sliding-scale insulin, Levemir 30 units at night, follow blood sugars, add novolog 2 units with each meal - Disconinue Prednisone 40 mg daily has completed 4 days -Amiodarone 100 mg daily Chronic conditions: CAD with stents and pacemaker Pulmonary hypertension Aortic stenosis HFrEF with previously known EF of 25-30% Hypertension Hyperlipidemia Prostate cancer status post radiation COPD Obstructive sleep apnea -Norvasc 5 mg at night, Lipitor 80 mg at night, Lasix 20 mg twice daily, hydrochlorothiazide 25 mg daily, metoprolol 50 mg daily Imaging: None new for review Data Review: Vitals reviewed patient afebrile for the last 24 hours. A.m. vitals showed pulse 61, respirations 14, blood pressure 132/65, O2 sat 98% on room air Labs reviewed and remarkable for hemoglobin 11.2, potassium 3.4, BUN 34, creatinine 1.52, and blood sugar of 162. INR low at 1. DVT prophylaxis: Lovenox Discussed with: Patient, Anticipated discharge date: 12/22/[address]: [facility] This dictation was prepared using [employer] voice recognition software. Though every attempt is made to correct errors during dictation some may still exist. Objective - Vital Signs Vital signs: Vital Signs Temp 97.5 F L 12/20/22 13:54 Pulse 61 12/20/22 13:54 Resp 18 12/20/22 13:54 BP 124/67 12/20/22 13:54 Pulse Ox 99 12/20/22 13:54 FiO2 Intake & Output 12/19/22 12/20/22 12/20/22 18:59 06:59 18:59 Intake Total 1080 Output Total 1200 700 700 Balance -120 -700 -700 Intake: Oral 1080 Output: Urine 1200 700 700 Other: Voiding Method External Catheter - Labs CBC & Chem 7: 12/20/22 07:08 12/20/22 07:08 Labs: Abnormal Lab Results - Last 24 Hours (Table) 12/19/22 12/19/22 12/20/22 Range/Units 16:43 20:31 07:08 RBC 3.74 L (4.30-5.90) m/uL Hgb 11.2 L (13.0-17.5) gm/dL Hct 34.3 L (39.0-53.0) % Potassium (3.5-5.1) mmol/L Carbon Dioxide (22-30) mmol/L BUN (9-20) mg/dL Creatinine (0.66-1.25) mg/dL POC Glucose (mg/dL) 275 H 323 H (70-110) mg/dL 12/20/22 12/20/22 Range/Units 07:08 11:22 RBC (4.30-5.90) m/uL Hgb (13.0-17.5) gm/dL Hct (39.0-53.0) % Potassium 3.4 L (3.5-5.1) mmol/L Carbon Dioxide 36 H (22-30) mmol/L BUN 34 H (9-20) mg/dL Creatinine 1.52 H (0.66-1.25) mg/dL POC Glucose (mg/dL) 162 H (70-110) mg/dL Microbiology - Last 24 Hours (Table) 12/16/22 10:59 Blood Culture - Preliminary Blood
[2022-12-20 16:27] LABS: Glucose,Whole Blood 355 mg/dL (70-110)
[2022-12-20] MEDS ORDERED: WARFARIN 5 MG TAB PO ONE (18:00)
[2022-12-20 21:25] LABS: Glucose,Whole Blood 341 mg/dL (70-110)
[2022-12-20] MEDS: BICALUTAMIDE 50 MG TAB PO SCH (21:56)
[2022-12-20] MEDS: INSULIN DETEMIR (LEVEMIR) 100 UNIT/ML SYR SQ SCH (21:56)
[2022-12-20] MEDS: ATORVASTATIN 80 MG TAB PO SCH (21:57)
[2022-12-20] MEDS: TAMSULOSIN 0.4 MG CAP.ER.24H PO SCH (21:57)
[2022-12-20] MEDS: amLODIPine 5 MG TAB PO SCH (21:57)
[2022-12-21 05:40] LABS: HCT 34.2 % (39.0-53.0); HGB 11.4 gm/dL (13.0-17.5); MCH 29.9 pg (25.0-35.0); MCHC 33.4 g/dL (31.0-37.0); MCV 89.6 fL (80.0-100.0); Mean Platelet Volume 9.4; Platelet Count 254 k/uL (150-450); RBC 3.81 m/uL (4.30-5.90); RDW 13.6 % (11.5-15.5)
[2022-12-21 05:55] LABS: INR 1.1 (<1.2)
[2022-12-21 06:02] LABS: Glucose,Whole Blood 94 mg/dL (70-110)
[2022-12-21 06:04] LABS: African American GFR (CKD) 50 (>60 ml/min/1.73 sqM); Anion Gap 6 mmol/L; Blood Urea Nitrogen 35 mg/dL (9-20); Calcium 9.6 mg/dL (8.4-10.2); Carbon Dioxide 34 mmol/L (22-30); Chloride 97 mmol/L (98-107); Glucose 107 mg/dL (74-99); Non-African American GFR(CKD) 43 (>60 ml/min/1.73 sqM); Potassium 3.8 mmol/L (3.5-5.1); Sodium 137 mmol/L (137-145)
[2022-12-21] MEDS: INSULIN ASPART (NovoLOG) 100 UNIT/ML VIAL SQ SCH ×7 (06:04→21:10)
[2022-12-21] MEDS: CALCIUM CARB-VIT D 500 MG-5 MCG TAB PO SCH ×2 (07:52→21:11)
[2022-12-21] MEDS: ENOXAPARIN 100 MG/ML SYRINGE SQ SCH ×2 (07:52→21:11)
[2022-12-21] MEDS: hydroCHLOROthiazide 25 MG TAB PO SCH (07:52)
[2022-12-21] MEDS: FUROSEMIDE 20 MG TAB PO SCH ×2 (07:52→17:44)
[2022-12-21] MEDS: AMIODARONE 100 MG TAB PO SCH (07:52)
[2022-12-21] MEDS: GABAPENTIN 300 MG CAP PO SCH ×2 (07:52→21:11)
[2022-12-21] MEDS: VENLAFAXINE HCL 75 MG TAB PO SCH ×2 (07:52→21:11)
[2022-12-21] MEDS: METOPROLOL SUCCINATE (ER) 50 MG TAB.ER.24H PO SCH (07:52)
[2022-12-21] MEDS: FERROUS SULFATE 325 MG TAB PO SCH ×2 (07:52→21:11)
[2022-12-21] MEDS: SYMBICORT 80-4.5 MCG INHALER INHALATION SCH ×2 (08:52→19:59)
[2022-12-21 11:07] LABS: Glucose,Whole Blood 234 mg/dL (70-110)
[2022-12-21 16:27] LABS: Glucose,Whole Blood 250 mg/dL (70-110)
--- NOTE | 2022-12-21 16:44 | P.PN ---
Subjective Progress Note Date: 12/21/22 (delayed charting seen at 0945) Patient is an 87-year-old male with atrial fibrillation status post cardiac ablation on Coumadin, CAD with stents and pacemaker placement, pulmonary hypert ension, aortic stenosis, HFrEF with previously known EF of 25-30%, CKD stage IIIB , hypertension, hyperlipidemia, COPD, obstructive sleep apnea CPAP dependent, and insulin-dependent diabetes mellitus who presented to the emergency department for right knee pain and swelling reulting in difficulty am bulating after a mechanical fall onto right knee on 12/13/22. Hes initially seen in the ER on 12/14/22 and was discharged home after evaluation showed no fracture, he returned as he was unable to ambuate. Laboratory analysis was remarkable for a WBC of 12.1. INR 2.9, BUN 37, creatinine 1.67, and GFR of 37 (baseline creatinine 1.6.). His right knee was aspirated in the ED with reports of 60 mL of bloody right knee aspirate. Orthopedic surgery consulted. Synovial fluid analysis shows 10,000 nucleated cells, 4 78,000 RBCs, uric acid crystals. CUlture was negative for infection/ Patient started on oral prednisone. Knee pain and swelling improved. Despite multiple days without Coumadin his INR remained supratherapeutic and he was given a dose of vitamin K on 12/18/22. Patient seen and examined at bedside. He is doing well, no complaints, less pain with walking but still very unsteady. Vital signs reviewed General: nontoxic, no distress, appears at stated age Cardiovascular: S1S2 reg, no murmur, positive posterior tibial pulse bilateral, Lungs: CTA bilateral, no rhonchi, no rales , no accessory muscle use Abdominal: soft, nontender to palpation, no guarding, no appreciable o rganomegaly Ext: no gross muscle atrophy, no edema b/l lower extremities, no contractures, right knee without any extensive swelling or erythema Neuro: CN II-XI grossly intact, no focal neuro deficits Psych: Alert, oriented, appropriate affect Assessment/Plan: Hemarthrosis, right knee gouty monoarthropathy right knee Debility Leukocytosis, likely reactive, resolved Mechanical fall Supratherapeutic INR, resolved Paroxysmal atrial fibrillation Hypokalemia, resolved Type 2 diabetes CKD stage IIIb with baseline GFR 45 -Continue Lovenox 100 mg twice daily to bridge to therapeutic INR as it is currently 1.1. coumadin 6 mg tonight, repeat INR in AM -PT/OT recommendations -Fall precautions -Sliding-scale insulin, Levemir 30 units at night, follow blood sugars, add novolog 2 units with each meal -Amiodarone 100 mg daily Chronic conditions: CAD with stents and pacemaker Pulmonary hypertension Aortic stenosis HFrEF with previously known EF of 25-30% Hypertension Hyperlipidemia Prostate cancer status post radiation COPD Obstructive sleep apnea -Norvasc 5 mg at night, Lipitor 80 mg at night, Lasix 20 mg twice daily, hydrochlorothiazide 25 mg daily, metoprolol 50 mg daily Imaging: None new for review Data Review: Vitals reviewed. Labs reviewed are CBC, BMP, and INR remarkabel for INR 1.1, hemoglobin 11.4, BUN 35, creatinine 1.46 DVT prophylaxis: Lovenox Discussed with: Patient, Anticipated discharge date: 12/22/[address]: [facility] This dictation was prepared using [employer] voice recognition software. Though every attempt is made to correct errors during dictation some may still exist. Objective - Vital Signs Vital signs: Vital Signs Temp 97.9 F 12/21/22 13:40 Pulse 61 12/21/22 13:40 Resp 18 12/21/22 13:40 BP 114/65 12/21/22 13:40 Pulse Ox 100 12/21/22 13:40 FiO2 Intake & Output 12/20/22 12/21/22 12/21/22 18:59 06:59 18:59 Intake Total 1080 Output Total 1150 1500 850 Balance -70 -1500 -850 Intake: Oral 1080 Output: Urine 1150 1500 850 Other: Voiding Method External Catheter External Catheter External Catheter # Bowel Movements 1 - Labs CBC & Chem 7: 12/21/22 05:17 12/21/22 05:17 Labs: Abnormal Lab Results - Last 24 Hours (Table) 12/20/22 12/21/22 12/21/22 Range/Units 21:18 05:17 05:17 RBC 3.81 L (4.30-5.90) m/uL Hgb 11.4 L (13.0-17.5) gm/dL Hct 34.2 L (39.0-53.0) % Chloride 97 L (98-107) mmol/L Carbon Dioxide 34 H (22-30) mmol/L BUN 35 H (9-20) mg/dL Creatinine 1.46 H (0.66-1.25) mg/dL Glucose 107 H (74-99) mg/dL POC Glucose (mg/dL) 341 H (70-110) mg/dL 12/21/22 12/21/22 Range/Units 11:05 16:25 RBC (4.30-5.90) m/uL Hgb (13.0-17.5) gm/dL Hct (39.0-53.0) % Chloride (98-107) mmol/L Carbon Dioxide (22-30) mmol/L BUN (9-20) mg/dL Creatinine (0.66-1.25) mg/dL Glucose (74-99) mg/dL POC Glucose (mg/dL) 234 H 250 H (70-110) mg/dL
[2022-12-21] MEDS ORDERED: WARFARIN 5 MG TAB PO ONE (18:00)
[2022-12-21] MEDS ORDERED: WARFARIN 3 MG TAB PO ONE (18:00)
[2022-12-21 20:36] LABS: Glucose,Whole Blood 249 mg/dL (70-110)
[2022-12-21] MEDS ORDERED: INSULIN DETEMIR (LEVEMIR) 100 UNIT/ML SYR SQ SCH (21:00)
[2022-12-21] MEDS: amLODIPine 5 MG TAB PO SCH (21:11)
[2022-12-21] MEDS: ATORVASTATIN 80 MG TAB PO SCH (21:11)
[2022-12-21] MEDS: TAMSULOSIN 0.4 MG CAP.ER.24H PO SCH (21:11)
[2022-12-21] MEDS: BICALUTAMIDE 50 MG TAB PO SCH (21:12)
[2022-12-22 06:06] LABS: Glucose,Whole Blood 53 mg/dL (70-110)
[2022-12-22 06:06] LABS: Glucose,Whole Blood 59 mg/dL (70-110)
[2022-12-22] MEDS: INSULIN ASPART (NovoLOG) 100 UNIT/ML VIAL SQ SCH ×4 (06:07→12:50)
[2022-12-22 06:16] LABS: Glucose,Whole Blood 57 mg/dL (70-110)
[2022-12-22 06:33] LABS: Glucose,Whole Blood 138 mg/dL (70-110)
[2022-12-22 06:46] LABS: Glucose,Whole Blood 129 mg/dL (70-110)
[2022-12-22 06:56] LABS: HCT 35.6 % (39.0-53.0); HGB 11.7 gm/dL (13.0-17.5); MCH 30.2 pg (25.0-35.0); MCHC 32.8 g/dL (31.0-37.0); Mean Platelet Volume 9.3; Platelet Count 267 k/uL (150-450); RBC 3.87 m/uL (4.30-5.90); RDW 13.7 % (11.5-15.5); WBC 9.1 k/uL (3.8-10.6)
[2022-12-22 07:23] LABS: INR 1.2 (<1.2); Prothrombin Time 12.2 sec (9.0-12.0)
[2022-12-22 07:44] VITALS: BP 130/82; PULSE 60; RESP 16; TEMP 97.9
[2022-12-22] MEDS: SYMBICORT 80-4.5 MCG INHALER INHALATION SCH (09:43)
[2022-12-22] MEDS: METOPROLOL SUCCINATE (ER) 50 MG TAB.ER.24H PO SCH (09:49)
[2022-12-22] MEDS: FERROUS SULFATE 325 MG TAB PO SCH (09:49)
[2022-12-22] MEDS: CALCIUM CARB-VIT D 500 MG-5 MCG TAB PO SCH (09:49)
[2022-12-22] MEDS: ENOXAPARIN 100 MG/ML SYRINGE SQ SCH (09:49)
[2022-12-22] MEDS: GABAPENTIN 300 MG CAP PO SCH (09:49)
[2022-12-22] MEDS: FUROSEMIDE 20 MG TAB PO SCH (09:49)
[2022-12-22] MEDS: hydroCHLOROthiazide 25 MG TAB PO SCH (09:49)
[2022-12-22] MEDS: VENLAFAXINE HCL 75 MG TAB PO SCH (09:50)
[2022-12-22] MEDS: AMIODARONE 100 MG TAB PO SCH (09:53)
[2022-12-22 10:46] VITALS: BMI 32.3
[2022-12-22 11:31] LABS: Glucose,Whole Blood 125 mg/dL (70-110)
--- NOTE | 2022-12-22 12:59 | P.DS ---
Providers Date of admission: 12/15/22 10:30 Expected date of discharge: 12/22/22 Attending physician: Vivienne Larios DO Consults: 12/15/22 10:28 Consult Physician Routine Consulting Provider: Jeovanny Hathaway Consult Reason/Comments: Hemarthrosis, rule out septic arthritis Do you want consulting provider notified?: Yes Primary care physician: [facility] Hospital Course: Discharge Diagnosis: Hemarthrosis, right knee gouty monoarthropathy right knee Debility Leukocytosis, likely reactive, resolved Mechanical fall Supratherapeutic INR, resolved Paroxysmal atrial fibrillation Hypokalemia, resolved Type 2 diabetes CKD stage IIIb with baseline GFR 45 CAD with stents and pacemaker Pulmonary hypertension Aortic stenosis HFrEF with previously known EF of 25-30% Hypertension Hyperlipidemia Prostate cancer status post radiation COPD Obstructive sleep apnea Hospital Course: Patient is an 87-year-old male with atrial fibrillation status post cardiac ablation on Coumadin, CAD with stents and pacemaker placement, pulmonary hypertension, aortic stenosis, HFrEF with previously known EF of 25-30%, CKD stage IIIB , hypertension, hyperlipidemia, COPD, obstructive sleep apnea CPAP dependent, and insulin-dependent diabetes mellitus who presented to the emergency department for right knee pain and swelling resulting in difficulty ambulating after a mechanical fall onto right knee on 12/13/22. Hes initially seen in the ER on 12/14/22 and was discharged home after evaluation showed no fracture, he returned as he was unable to ambulate. Laboratory analysis was remarkable for a WBC of 12.1. INR 2.9, BUN 37, creatinine 1.67, and GFR of 37 (baseline creatinine 1.6.). His right knee was aspirated in the ED with reports of 60 mL of bloody right knee aspirate. Orthopedic surgery consulted. Synovial fluid analysis shows 10,000 nucleated cells, 4 78,000 RBCs, uric acid crystals. Culture was negative for infection. Patient started on oral prednisone which he completed. Knee pain and swelling improved. Despite multiple days without Coumadin his INR remained supratherapeutic and he was given a dose of vitamin K on 12/18/22. His INR remained subtherapeutic and he was started on lovenox to bridge his therapy. He continued to do well and improved.He was determined stable for discharge to complete his coumadin bridge at rehab. Follow-up: Patient's INR remains subtherapeutic. Would check INR daily and continue on Lovenox 100 mg twice daily until INR is therapeutic for greater than 2 days. Patient seen and examined at bedside. Doing well no significant knee pain. All questions answered.. at bedside. Agreeable to discharge today. Vital signs reviewed and stable. General: nontoxic, no distress, appears at stated age Cardiovascular: S1S2 reg, no murmur, positive posterior tibial pulse bilateral, Lungs: CTA bilateral, no rhonchi, no rales , no accessory muscle use Ext: no gross muscle atrophy, no edema b/l lower extremities, no contractures Neuro: CN II-XI grossly intact, no focal neuro deficits Psych: Alert, oriented, appropriate affect A total of 32 minutes of time were spent preparing this complex discharge summary. Patient was discharged on 12/22/22. This dictation was prepared using [employer] voice recognition software. Though every attempt is made to correct errors during dictation some may still exist. Patient Condition at Discharge: Stable Plan - Discharge Summary New Discharge Prescriptions: New Enoxaparin [Lovenox] 100 mg SQ Q12HR each Continue Venlafaxine HCl [Effexor] 75 mg PO HS Atorvastatin [Lipitor] 80 mg PO HS Ferrous Sulfate [Iron (65 MG Elemental)] 325 mg PO BID INSULIN ASPART (NovoLOG) [NovoLOG (formulary)] 6 - 8 unit SQ AC-TID Tamsulosin [Flomax] 0.4 mg PO HS Bicalutamide [Casodex] 50 mg PO HS Warfarin [Coumadin] 5 mg PO SUMOWETHSA Warfarin [Coumadin] 2.5 mg PO TUFR Metoprolol Succinate (ER) [Toprol XL] 50 mg PO DAILY Aspirin 81 mg PO DAILY 6 Days #6 tab Nitroglycerin Sl Tabs [Nitrostat] 0.4 mg SUBLINGUAL Q5M PRN #25 tab PRN Reason: Chest Pain Furosemide [Lasix] 20 mg PO BID Potassium Chloride [K-Tab ER] 10 meq PO BID hydroCHLOROthiazide [Hydrodiuril] 25 mg PO DAILY Albuterol Nebulized [Ventolin Nebulized] 2.5 mg INHALATION RT-QID Amiodarone [Cordarone] 100 mg PO DAILY Fluticasone Propion/Salmeterol [Wixela 100-50 Inhub] 1 puff INHALATION RT-BID Calcium Carbonate/Vitamin D3 [Calcium 600 mg-D3 20 mcg (800 unit)] 1 tab PO BID Venlafaxine HCl [Effexor] 150 mg PO QAM amLODIPine [Norvasc] 5 mg PO HS Insulin Glargine,Hum.rec.anlog [Lantus Solostar Pen] 24 units SQ HS Diclofenac Sodium Gel [Voltaren Gel] 4 gm TOPICAL QID PRN #100 gm PRN Reason: Pain Gabapentin [Neurontin] 300 mg PO BID #12 cap Discontinued HYDROcodone/APAP 5-325MG [[place] 5-325] 1 tab PO Q6HR PRN 3 Days #12 tab PRN Reason: Pain Discharge Medication List Atorvastatin [Lipitor] 80 mg PO HS 07/09/14 [History] Venlafaxine HCl [Effexor] 75 mg PO HS 07/09/14 [History] Ferrous Sulfate [Iron (65 MG Elemental)] 325 mg PO BID 08/06/15 [History] INSULIN ASPART (NovoLOG) [NovoLOG (formulary)] 6 - 8 unit SQ AC-TID 08/06/15 [History] Tamsulosin [Flomax] 0.4 mg PO HS 01/27/16 [History] Bicalutamide [Casodex] 50 mg PO HS 11/15/17 [History] Warfarin [Coumadin] 5 mg PO SUMOWETHSA 02/14/19 [History] Warfarin [Coumadin] 2.5 mg PO TUFR 05/01/19 [History] Fluticasone Propion/Salmeterol [Wixela 100-50 Inhub] 1 puff INHALATION RT-BID 08/12/21 [History] Metoprolol Succinate (ER) [Toprol XL] 50 mg PO DAILY 08/12/21 [History] Aspirin 81 mg PO DAILY 6 Days #6 tab 08/21/21 [Rx] Nitroglycerin Sl Tabs [Nitrostat] 0.4 mg SUBLINGUAL Q5M PRN #25 tab 08/21/21 [Rx] Calcium Carbonate/Vitamin D3 [Calcium 600 mg-D3 20 mcg (800 unit)] 1 tab PO BID 10/29/22 [History] Furosemide [Lasix] 20 mg PO BID 10/29/22 [History] Insulin Glargine,Hum.rec.anlog [Lantus Solostar Pen] 24 units SQ HS 10/29/22 [History] Potassium Chloride [K-Tab ER] 10 meq PO BID 10/29/22 [History] Venlafaxine HCl [Effexor] 150 mg PO QAM 10/29/22 [History] amLODIPine [Norvasc] 5 mg PO HS 10/29/22 [History] hydroCHLOROthiazide [Hydrodiuril] 25 mg PO DAILY 10/29/22 [History] Diclofenac Sodium Gel [Voltaren Gel] 4 gm TOPICAL QID PRN #100 gm 12/14/22 [Rx] Albuterol Nebulized [Ventolin Nebulized] 2.5 mg INHALATION RT-QID 12/15/22 [History] Amiodarone [Cordarone] 100 mg PO DAILY 12/15/22 [History] Enoxaparin [Lovenox] 100 mg SQ Q12HR each 12/22/22 [Rx] Gabapentin [Neurontin] 300 mg PO BID #12 cap 12/22/22 [Rx] Follow up Appointment(s)/Referral(s): [facility] [NON-STAFF] - As Needed [facility] [Primary Care Provider] - 1-2 days Activity/Diet/Wound Care/Special Instructions: Activity: as tolerated Diet: Heart Healthy Special Instructions: Check INR daily. Can discontinue Lovenox one INR is greater than 2 Discharge Disposition: HOME SELF-CARE
[2022-12-22] MEDS ORDERED: WARFARIN 3 MG TAB PO ONE (18:00)
[2022-12-22] MEDS ORDERED: INSULIN DETEMIR (LEVEMIR) 100 UNIT/ML SYR SQ SCH (21:00)
== END 2022-12-22 14:50 | DRG 554 ==
LOC: EC 08:07 → 4SSUR 10:30 → 3SCARD 12-16 10:19 → 4SSUR 12-16 21:49
PROVIDERS: ADMIT Internal Medicine; ATTEND Internal Medicine
PROC: 0S9C3ZX Drainage of Right Knee Joint, Percutaneous Approach, Diagnostic (ICD-10-PCS; principal; 2022-12-15)
PROC: 5A09357 Assistance with Respiratory Ventilation, Less than 24 Consecutive Hours, Continuous Positive Airway Pressure (ICD-10-PCS; 2022-12-15)
DX: M25.061 Hemarthrosis, right knee (principal); I13.0 Hypertensive heart and chronic kidney disease with heart failure and stage 1 through stage 4 chronic kidney disease, or unspecified chronic kidney disease; I50.22 Chronic systolic (congestive) heart failure; I27.20 Pulmonary hypertension, unspecified; C61 Malignant neoplasm of prostate; E11.22 Type 2 diabetes mellitus with diabetic chronic kidney disease; E11.65 Type 2 diabetes mellitus with hyperglycemia; N18.32 Chronic kidney disease, stage 3b; I48.0 Paroxysmal atrial fibrillation; J44.9 Chronic obstructive pulmonary disease, unspecified; Z79.4 Long term (current) use of insulin; Z66 Do not resuscitate; M17.11 Unilateral primary osteoarthritis, right knee; M10.9 Gout, unspecified; I35.0 Nonrheumatic aortic (valve) stenosis; E78.5 Hyperlipidemia, unspecified; F32.A Depression, unspecified; F41.9 Anxiety disorder, unspecified; I25.10 Atherosclerotic heart disease of native coronary artery without angina pectoris; I25.2 Old myocardial infarction; G47.33 Obstructive sleep apnea (adult) (pediatric); E87.6 Hypokalemia; T38.0X5A Adverse effect of glucocorticoids and synthetic analogues, initial encounter; R79.1 Abnormal coagulation profile; M19.90 Unspecified osteoarthritis, unspecified site; H91.90 Unspecified hearing loss, unspecified ear; L98.9 Disorder of the skin and subcutaneous tissue, unspecified; Z79.82 Long term (current) use of aspirin; Z79.51 Long term (current) use of inhaled steroids; Z79.01 Long term (current) use of anticoagulants; Z79.899 Other long term (current) drug therapy; Z92.3 Personal history of irradiation; Z87.891 Personal history of nicotine dependence; Z85.828 Personal history of other malignant neoplasm of skin; Z95.0 Presence of cardiac pacemaker; Z91.81 History of falling; Z95.5 Presence of coronary angioplasty implant and graft; Z98.1 Arthrodesis status; Z71.3 Dietary counseling and surveillance; Z88.6 Allergy status to analgesic agent; W18.30XA Fall on same level, unspecified, initial encounter
CPT/HCPCS: 36415; 80048; 80053; 80202; 82565; 82945; 85025; 85027; 85610; 85730; 86140; 87040; 87070; 87205; 89050; 89060; 94640; 96365; 96366; 96375; 99284

== ENCOUNTER 2023-03-12 19:08 | Inpatient (IN) | payer MEDICARE, BC ==
--- NOTE | 2023-03-12 20:44 | ED ---
SOB HPI - General Chief Complaint: Shortness of Breath Stated Complaint: Weakness Time Seen by Provider: 03/12/23 19:50 Source: EMS Mode of arrival: EMS - History of Present Illness Initial Comments: 87-year-old male with past medical history of A. fib on Coumadin, COPD, hyperten feliciano who presents emergency Department with weakness shortness of breath. Daughter is at bedside and helps provide history. States that her father has had some weakness and confusion over the course of the week. He did have a fall on Wednesday in the shower and hit his right elbow. She does not believe he hit his head. He has had some visible shortness of breath. tested positive for Covid however the patient has not been tested yet. He denies any complaints. No chest pain. No abdominal pain. Denies nausea, vomiting or diarrhea. He had his Coumadin level checked on Wednesday and was supratherapeutic with an INR of 5. They told not to take his Coumadin for the rest of the week. He was scheduled to follow up today in office however patient has been so weak that he is unable to follow up in office. Patient admits to nonproductive cough. No other alleviating, precipitating or modifying factors - Related Data Home Medications Medication Instructions Recorded Confirmed Atorvastatin [Lipitor] 80 mg PO HS 07/09/14 03/12/23 Ferrous Sulfate [Iron (65 MG 325 mg PO BID 08/06/15 03/12/23 Elemental)] Tamsulosin [Flomax] 0.4 mg PO HS 01/27/16 03/12/23 Bicalutamide [Casodex] 50 mg PO HS 11/15/17 03/12/23 Warfarin [Coumadin] 5 mg PO HS 05/01/19 03/12/23 Fluticasone Propion/Salmeterol 1 puff INHALATION RT-BID 08/12/21 03/12/23 [Wixela 100-50 Inhub] Metoprolol Succinate (ER) [Toprol 50 mg PO DAILY 08/12/21 03/12/23 XL] Calcium Carbonate/Vitamin D3 1 tab PO BID 10/29/22 03/12/23 [Calcium 600 mg-D3 20 mcg (800 unit)] Furosemide [Lasix] 20 mg PO BID 10/29/22 03/12/23 Insulin Glargine,Hum.rec.anlog 24 units SQ HS 10/29/22 03/12/23 [Lantus Solostar Pen] Potassium Chloride [K-Tab ER] 10 meq PO BID 10/29/22 03/12/23 Albuterol Sulfate [Accuneb] 0.63 mg INHALATION RT-QID 03/12/23 03/12/23 Amiodarone [Cordarone] 100 mg PO DAILY 03/12/23 03/12/23 Insulin Aspart 6 - 8 units SQ TID 03/12/23 03/12/23 Venlafaxine HCl [Effexor] 75 mg PO BID 03/12/23 03/12/23 busPIRone HCl [Buspar] 10 mg PO BID 03/12/23 03/12/23 hydroCHLOROthiazide [Hydrodiuril] 25 mg PO DAILY 03/12/23 03/12/23 lisinopriL [Zestril] 2.5 mg PO DAILY 03/12/23 03/12/23 Previous Rx's Medication Instructions Recorded Aspirin 81 mg PO DAILY 6 Days #6 tab 08/21/21 Gabapentin [Neurontin] 300 mg PO BID #12 cap 12/22/22 Allergies Allergy/AdvReac Type Severity Reaction Status Date / Time adhesive Allergy blisters, Verified 03/12/23 22:25 skin peels ibuprofen [From Motrin] AdvReac Abdominal Verified 03/12/23 22:25 Pain Review of Systems ROS Statement: Those systems with pertinent positive or pertinent negative responses have been documented in the HPI. ROS Other: All systems not noted in ROS Statement are negative. Past Medical History Past Medical History: Atrial Fibrillation, Cancer, COPD, Diabetes Mellitus, Hearing Disorder / Deafness, Hyperlipidemia, Hypertension, Myocardial Infarction (OK), Osteoarthritis (OA), Pneumonia, Prostate Disorder, Renal Disease, Skin Disorder, Sleep Apnea/CPAP/BIPAP Additional Past Medical History / Comment(s): bowel perforation 2006, prostate CA (radiation tx 2009)., skin cancer., pacemaker, uses c-pap machine, hx of falls- recent fall and left hand has a sore and is bruised., uses walker cane & scooter ., hearing aids., blood in stool. Last Myocardial Infarction Date:: july 2021 History of Any Multi-Drug Resistant Organisms: None Reported Past Surgical History: Back Surgery, Bowel Resection, Cardiac Ablation, Heart Catheterization, Heart Catheterization With Stent, Orthopedic Surgery, Pacemaker Additional Past Surgical History / Comment(s): back surgery x2 (has cage), bowel surgery for perforation with colostomy/colostomy later reversed, nasal surgery for polyps, otoniel cataracts, arthroscopy rt knee, heart cath with stent august 2021 Past Anesthesia/Blood Transfusion Reactions: No Reported Reaction Date of Last Stent Placement:: august 2021 Type of Cardiac Device: Permanent Pacemaker Device Placement Date:: 2013 Past Psychological History: Anxiety, Depression Additional Psychological History / Comment(s): . Smoking Status: Former smoker Past Alcohol Use History: None Reported Additional Past Alcohol Use History / Comment(s): quit smoking 1964, hx of 1 ppd. Past Drug Use History: None Reported - Past Family History Mother Family Medical History: Cancer Additional Family Medical History / Comment(s): brain cancer Sister(s) Family Medical History: Cancer Additional Family Medical History / Comment(s): breast cancer Father Family Medical History: Diabetes Mellitus, Renal Disease General Exam General appearance: alert, in no apparent distress, other (Fatigued) Head exam: Present: atraumatic, normocephalic, normal inspection Eye exam: Present: normal appearance, PERRL, EOMI. Absent: scleral icterus, conjunctival injection, periorbital swelling ENT exam: Present: normal exam, mucous membranes moist Neck exam: Present: normal inspection. Absent: tenderness, meningismus, lymphadenopathy Respiratory exam: Present: normal lung sounds bilaterally. Absent: respiratory distress, wheezes, rales, rhonchi, stridor Cardiovascular Exam: Present: regular rate, normal rhythm, normal heart sounds. Absent: systolic murmur, diastolic murmur, rubs, gallop, clicks GI/Abdominal exam: Present: soft, normal bowel sounds. Absent: distended, tenderness, guarding, rebound, rigid Extremities exam: Present: normal inspection, full ROM, normal capillary refill. Absent: tenderness, pedal edema, joint swelling, calf tenderness Back exam: Present: normal inspection Neurological exam: Present: alert, oriented X3, CN II-XII intact Psychiatric exam: Present: normal affect, normal mood Skin exam: Present: warm, dry, intact, normal color. Absent: rash Course Vital Signs 03/12/23 19:46 Pulse Rate 60 Respiratory 18 Rate Blood Pressure 128/69 O2 Sat by Pulse 99 Oximetry Medical Decision Making - Medical Decision Making Was pt. sent in by a medical professional or institution (, [facility], BEAM SAW OPERATOR, urgent care, hospital, or [facility]...) When possible be specific @ -No Did you speak to anyone other than the patient for history (EMS, parent, family, police, friend...)? What history was obtained from this source @ -Daughter and EMS Did you review nursing and triage notes (agree or disagree)? Why? @ -I reviewed and agree with nursing and triage notes Were old charts reviewed (outside hosp., previous admission, EMS record, old EKG, old radiological studies, urgent care reports/EKG's, [facility] records)? Report findings @ -No old charts were reviewed Differential Diagnosis (chest pain, altered mental status, abdominal pain women, abdominal pain men, vaginal bleeding, weakness, fever, dyspnea, syncope, headach e, dizziness, GI bleed, back pain, seizure, CVA, palpatations, mental health, musculoskeletal)? @ -Differential Weakness: Hypoglycemia, shock, sepsis, hyponatremia, anemia, infection, OK, ETOH, adverse medicine reaction, overdose, stroke, this is not meant to be an all-inclusive list. EKG interpreted by me (3pts min.). @ -Yes and demonstrates electronic ventricular pacemaker with a rate of 62. QRS 178. QTC of 507. Pacemaker captures appropriately. X-rays interpreted by me (1pt min.). @ -Yes patchy infiltrates CT interpreted by me (1pt min.). @ -Yes no acute intracranial process U/S interpreted by me (1pt. min.). @ -None done What testing was considered but not performed or refused? (CT, X-rays, U/S, labs)? Why? @ -None What meds were considered but not given or refused? Why? @ -None Did you discuss the management of the patient with other professionals (professionals i.e. , [facility], BEAM SAW OPERATOR, lab, RT, psych nurse, social work coordinator, heating and blending supervisor, teacher, benefits officer, case management coordinator)? Give summary @ -Yes, spoke with Dr. kurtz Was smoking cessation discussed for >3mins.? @ -No Was critical care preformed (if so, how long)? @ -No Were there social determinants of health that impacted care today? How? (Homelessness, low income, unemployed, alcoholism, drug addiction, transportation, low edu. Level, literacy, decrease access to med. care, penitentiary, rehab)? @ -No Was there de-escalation of care discussed even if they declined (Discuss DNR or withdrawal of care, Hospice)? DNR status @ -No What co-morbidities impacted this encounter? (DM, HTN, Smoking, COPD, CAD, Cancer, CVA, ARF, Chemo, Hep., AIDS, mental health diagnosis, sleep apnea, morb id obesity)? @ -COPD hypertension Was patient admitted / discharged? Hospital course, mention meds given and route, prescriptions, significant lab abnormalities, going to OR and other pertinent info. @ -Admitted. Upon arrival patient was placed into the hallway. Laboratory studies were conducted. Chest x-rays performed. CT the head is performed due to unwitnessed fall with continued confusion. Results are discussed with the daughter. Patient is Covid positive and having multiple falls therefore be admitted. Spoke with Dr. Kurtz for admission Undiagnosed new problem with uncertain prognosis? @ -yes Drug Therapy requiring intensive monitoring for toxicity (Heparin, Nitro, I nsulin, Cardizem)? @ -No Were any procedures done? @ -No Diagnosis/symptom? @ -Acute weakness, multiple falls, Covid-19 infection Acute, or Chronic, or Acute on Chronic? @ -Acute Uncomplicated (without systemic symptoms) or Complicated (systemic symptoms)? @ -Complicated Side effects of treatment? @ -No Exacerbation, Progression, or Severe Exacerbation? @ -No Poses a threat to life or bodily function? How? (Chest pain, USA, OK, pneumonia, PE, COPD, DKA, ARF, appy, cholecystitis, CVA, Diverticulitis, Homicidal, Suicidal, threat to staff... and all critical care pts) @ -No - Lab Data Result diagrams: 03/12/23 20:05 03/12/23 20:05 Lab Results 03/12/23 03/12/23 03/12/23 Range/Units 20:05 20:05 20:05 WBC 8.1 (3.8-10.6) k/uL RBC 3.89 L (4.30-5.90) m/uL Hgb 11.5 L (13.0-17.5) gm/dL Hct 34.2 L (39.0-53.0) % MCV 87.9 (80.0-100.0) fL MCH 29.6 (25.0-35.0) pg MCHC 33.7 (31.0-37.0) g/dL RDW 15.3 (11.5-15.5) % Plt Count 182 (150-450) k/uL MPV 10.3 Neutrophils % 77 % Lymphocytes % 6 % Monocytes % 12 % Eosinophils % 3 % Basophils % 0 % Neutrophils # 6.2 (1.3-7.7) k/uL Lymphocytes # 0.5 L (1.0-4.8) k/uL Monocytes # 1.0 (0-1.0) k/uL Eosinophils # 0.2 (0-0.7) k/uL Basophils # 0.0 (0-0.2) k/uL PT 12.4 (10.0-12.5) sec INR 1.2 H (<1.2) APTT 31.1 H (22.0-30.0) sec Sodium 131 L (137-145) mmol/L Potassium 4.5 (3.5-5.1) mmol/L Chloride 93 L (98-107) mmol/L Carbon Dioxide 27 (22-30) mmol/L Anion Gap 11 mmol/L BUN 53 H (9-20) mg/dL Creatinine 2.04 H (0.66-1.25) mg/dL Est GFR (CKD-EPI)AfAm 33 (>60 ml/min/1.73 sqM) Est GFR (CKD-EPI)NonAf 29 (>60 ml/min/1.73 sqM) Glucose 147 H (74-99) mg/dL Plasma Lactic Acid Fabian (0.7-2.0) mmol/L Calcium 9.0 (8.4-10.2) mg/dL Magnesium 2.1 (1.6-2.3) mg/dL Total Bilirubin 0.8 (0.2-1.3) mg/dL AST 28 (17-59) U/L ALT 17 (4-49) U/L Alkaline Phosphatase 72 (38-126) U/L Troponin I (0.000-0.034) ng/mL NT-Pro-B Natriuret Pep 6340 pg/mL Total Protein 6.3 (6.3-8.2) g/dL Albumin 3.7 (3.5-5.0) g/dL Influenza Type A (PCR) (Not Detectd) Influenza Type B (PCR) (Not Detectd) RSV (PCR) (Not Detectd) SARS-CoV-2 (PCR) (Not Detectd) 03/12/23 03/12/23 03/12/23 Range/Units 20:05 20:05 20:13 WBC (3.8-10.6) k/uL RBC (4.30-5.90) m/uL Hgb (13.0-17.5) gm/dL Hct (39.0-53.0) % MCV (80.0-100.0) fL MCH (25.0-35.0) pg MCHC (31.0-37.0) g/dL RDW (11.5-15.5) % Plt Count (150-450) k/uL MPV Neutrophils % % Lymphocytes % % Monocytes % % Eosinophils % % Basophils % % Neutrophils # (1.3-7.7) k/uL Lymphocytes # (1.0-4.8) k/uL Monocytes # (0-1.0) k/uL Eosinophils # (0-0.7) k/uL Basophils # (0-0.2) k/uL PT (10.0-12.5) sec INR (<1.2) APTT (22.0-30.0) sec Sodium (137-145) mmol/L Potassium (3.5-5.1) mmol/L Chloride (98-107) mmol/L Carbon Dioxide (22-30) mmol/L Anion Gap mmol/L BUN (9-20) mg/dL Creatinine (0.66-1.25) mg/dL Est GFR (CKD-EPI)AfAm (>60 ml/min/1.73 sqM) Est GFR (CKD-EPI)NonAf (>60 ml/min/1.73 sqM) Glucose (74-99) mg/dL Plasma Lactic Acid Fabian 1.2 (0.7-2.0) mmol/L Calcium (8.4-10.2) mg/dL Magnesium (1.6-2.3) mg/dL Total Bilirubin (0.2-1.3) mg/dL AST (17-59) U/L ALT (4-49) U/L Alkaline Phosphatase (38-126) U/L Troponin I 0.066 H* (0.000-0.034) ng/mL NT-Pro-B Natriuret Pep pg/mL Total Protein (6.3-8.2) g/dL Albumin (3.5-5.0) g/dL Influenza Type A (PCR) Not Detected (Not Detectd) Influenza Type B (PCR) Not Detected (Not Detectd) RSV (PCR) Not Detected (Not Detectd) SARS-CoV-2 (PCR) Detected A (Not Detectd) Disposition Clinical Impression: Multiple falls, COVID-19, MARCO A (acute kidney injury), Encephalopathy acute Disposition: ADMITTED IP TO THIS [facility] Condition: Stable Is patient prescribed a controlled substance at d/c from ED?: No Referrals: [facility],Clinic [Primary Care Provider] - 1-2 days Time of Disposition: 22:28 Decision to Admit Reason: Admit from EC Decision Date: 03/12/23 Decision Time: 22:28
[2023-03-12 20:58] LABS: ALT 17 U/L (4-49); African American GFR (CKD) 33 (>60 ml/min/1.73 sqM); Albumin 3.7 g/dL (3.5-5.0); Anion Gap 11 mmol/L; Blood Urea Nitrogen 53 mg/dL (9-20); Carbon Dioxide 27 mmol/L (22-30); Chloride 93 mmol/L (98-107); Glucose 147 mg/dL (74-99); Non-African American GFR(CKD) 29 (>60 ml/min/1.73 sqM); Sodium 131 mmol/L (137-145); Total Bilirubin 0.8 mg/dL (0.2-1.3); Total Protein 6.3 g/dL (6.3-8.2)
[2023-03-12 21:02] LABS: INR 1.2 (<1.2); Partial Thromboplastin Time 31.1 sec (22.0-30.0); Prothrombin Time 12.4 sec (10.0-12.5)
[2023-03-12 21:04] LABS: NT-Pro-B-Type Natriuretic Pept 6340 pg/mL
[2023-03-12 21:07] LABS: Basophils % (A) 0 %; Eosinophils # (A) 0.2 k/uL (0-0.7); Eosinophils % (A) 3 %; HCT 34.2 % (39.0-53.0); HGB 11.5 gm/dL (13.0-17.5); Lymphocytes # (A) 0.5 k/uL (1.0-4.8); Lymphocytes % (A) 6 %; MCH 29.6 pg (25.0-35.0); MCHC 33.7 g/dL (31.0-37.0); MCV 87.9 fL (80.0-100.0); Mean Platelet Volume 10.3; Monocytes % (A) 12 %; Neutrophils # (A) 6.2 k/uL (1.3-7.7); Neutrophils % (A) 77 %; Platelet Count 182 k/uL (150-450); RBC 3.89 m/uL (4.30-5.90); RDW 15.3 % (11.5-15.5); WBC 8.1 k/uL (3.8-10.6)
[2023-03-12 21:26] LABS: AST 28 U/L (17-59); Alkaline Phosphatase 72 U/L (38-126); Magnesium 2.1 mg/dL (1.6-2.3); Potassium 4.5 mmol/L (3.5-5.1)
--- NOTE | 2023-03-12 21:56 | CT ---
EXAMINATION TYPE: CT brain cspine wo con CT DLP: 1839.7 mGycm, Automated exposure control for dose reduction was used. DATE OF EXAM: 03/12/2023 9:08 PM COMPARISON: None. CLINICAL INDICATION:Male, 87 years old with history of fall in shower, ams; Fall in shower, AMS. TECHNIQUE: Brain: Multiple axial CT images of the brain were obtained without IV contrast. Cspine: Axial CT images from the skull base to the inferior aspect of T2 we obtained without intraven ous contrast. Coronal and sagittal reformatted images were also reviewed. FINDINGS: Brain: Extra-axial spaces: No abnormal extra-axial fluid collections. Ventricular system: Appear dilated in proportion to the degree of cerebral atrophy. Cerebral parenchyma: No increased attenuation to suggest acute intraparenchymal hemorrhage. The gra y-white matter interface appears maintained. Moderate generalized brain atrophy. Scattered hypoatte nuating areas are seen within the cerebral white matter, nonspecific but most often seen with chronic microvascular ischemic changes; moderate in degree. Cerebellum: No acute abnormality. Mass effect: No evidence of mass effect or midline shift. Intracranial vasculature: Atherosclerotic calcifications of the larger arteries near the skull base. Soft tissues: Normal. Visualized orbits: Orbital contents appear grossly intact. There has likely been previous lens surg robbin. Calvarium/osseous structures: No evidence of calvarial fracture. Paranasal sinuses and mastoid air cells: Mild mucosal thickening of the left maxillary sinus. Polypoi d mucosal thickening in the left posterior ethmoid air cell. MRI is more sensitive for detecting acute processes such as infarct, and may be considered if clinica lly warranted. Cervical spine: Fracture: None seen. Osseous structures, spinal canal/neural foramina: Multilevel moderate to severe degenerative disc dis ease changes with endplate spurring, disc osteophyte complexes, facet arthropathy. There is at least moderate canal and foraminal stenoses at C3-4, C5-6, C6-7, with somewhat milder stenoses at other lev els. Vertebral alignment: No traumatic malalignment. Straightening and reversal of the normal cervical dorothy dosis, can be due to pain, spasm, degenerative changes, presence of cervical collar. Neck soft tissues: No acute abnormality. Calcifications noted involving the cervical carotid arteries . Other: Lung apices show no acute infiltrate or pneumothorax. Somewhat prominent extrapleural fat is seen. Few vascular calcifications. IMPRESSION: CT head: 1. No acute intracranial CT abnormality. 2. Atrophy. CT cervical spine: 1. No evidence of cervical spine fracture or traumatic malalignment . 2. Moderate/severe cervical spondylosis.
[2023-03-12] MEDS ORDERED: NALOXONE 0.4 MG/ML 1 ML VIAL IV PRN (22:28)
[2023-03-12] MEDS: SODIUM CHLORIDE 0.9% 1,000 ML IV SCH (23:23)
[2023-03-12] MEDS: ACETAMINOPHEN TAB 325 MG TAB PO PRN (23:36)
[2023-03-12] MEDS: WARFARIN 3 MG TAB PO ONE (23:36)
--- NOTE | 2023-03-13 01:41 | XR ---
EXAMINATION TYPE: XR chest 2V DATE OF EXAM: 03/12/2023 8:41 PM CLINICAL INDICATION:Male, 87 years old with history of Weakness; [facility] COMPARISON: 01/08/2023 TECHNIQUE: XR chest 2V. Frontal PA and lateral views of the chest. FINDINGS: Lines/Tubes: EKG leads overlie the chest. No indwelling lines are seen. Heart/mediastinum: Cardiomediastinal silhouette is stable. Heart appears moderately enlarged. Ather osclerotic calcifications are seen in the aorta. Single-lead cardiac conduction device overlying the left hemithorax with lead projecting over the right ventricle. Pulmonary vascularity: Mild pulmonary vascular congestion. Lungs/Pleura: Mild blunting of the costophrenic angles suggesting small effusions with adjacent atele ctasis or infiltrates. Otherwise no consolidation or pneumothorax. Musculoskeletal: No acute osseous abnormality demonstrated in the limits of the exam. Degenerative c hanges of the spine and shoulders. Other findings: None. IMPRESSION: Cardiomegaly with mild pulmonary vascular congestion, and probably small pleural effusions. Correlate clinically for congestive heart failure.
--- NOTE | 2023-03-13 04:03 | P.HPIM ---
History of Present Illness H&P Date: 03/12/23 Patient is a 87-year-old male with a PMH of CAD status post stent and pacemaker placement, chronic kidney disease stage IIIB, paroxysmal A. fib on Coumadin, hypertension, hyperlipidemia, type II DM, COPD, who presented to the emergency room for shortness of breath and weakness. The history was largely obtained by the daughter at the bedside. She states that over the past 1 week, her father has been more confused and has had multiple falls. He reportedly had a fall on Wednesday where he fell in the shower, hitting his right elbow and possibly his head. The patient's had tested positive for Covid recently. The patient himself reports a nonproductive cough over the past 1 week and some shortness of breath. He denied experiencing chest discomfort, abdominal pain, nausea, vomiting, diarrhea. In the emergency room had/cervical spine CT revealed moderate/severe cervical spondylosis. EKG revealed of the paced rhythm at 62 bpm as reviewed by me. Chest x-ray revealed cardiomegaly with pulmonary venous congestion. Laboratory evaluation was remarkable for troponin 0.066, pro BNP 6340, BUN 53, creatinine 2.0 (baseline 1.6), sodium 131, and glucose 147. The patient had a T-max of 10 2.2F in the emergency room with SpO2 94% on room air and BP 108/53. ED documentation reviewed and case discussed with ED provider. Review of systems: Pertinent positives and negatives as discussed in HPI, a complete review of systems was performed and all other systems are negative. Physical examination: Vital signs reviewed General: non toxic, no distress, appears at stated age, obese Derm: no unusual rashes/lesions, warm Head: atraumatic, normocephalic, symmetric Eyes: EOMI, no lid lag, anicteric sclera, pupils equal round reactive to light ENT: Nose and ears atraumatic Neck: No cervical lymphadenopathy, trachea midline, supple Mouth: no lip lesion, mucus membranes moist Cardiovascular: S1S2 reg, no murmur, positive dorsalis pedis pulse bilateral, no edema Lungs: CTA bilateral, no rhonchi, no rales, no accessory muscle use Abdominal: soft, nontender to palpation, no guarding Ext: muscle strength 4 out of 5 in all 4 extremities grossly, no gross muscle a trophy, no contractures, Neuro: CN II-XI grossly intact, no gross focal neuro deficits Psych: Alert, oriented to person and place, not oriented to time Assessment: COVID-19 infection, not requiring supplemental oxygen Altered mental status, likely due to encephalopathy from ongoing infection Elevated troponin MARCO A on chronic kidney disease Debility with multiple falls Subtherapeutic INR Imaging: In the emergency room had/cervical spine CT revealed moderate/severe cervical spondylosis. EKG revealed of the paced rhythm at 62 bpm as reviewed by me. Chest x-ray revealed cardiomegaly with pulmonary venous congestion. Data Review: Laboratory evaluation was remarkable for troponin 0.066, pro BNP 6340, BUN 53, creatinine 2.0 (baseline 1.6), sodium 131, and glucose 147. The patient had a T-max of 102.2F in the emergency room with SpO2 94% on room air and BP 108/53. Plan: Continue with IV fluids normal saline 75 mL/h Trend troponin Cardiac monitoring Monitor BMP The patient's INR was reportedly 5 this past Wednesday and was advised to hold Coumadin for the rest of the week. He has been unable to follow up due to his weakness Continue with home Coumadin dosing Continue remaining home medications. Hold patient's home diuretic at this time PT consult Fall precautions DVT prophylaxis: Coumadin The patient is admitted with an anticipated greater than 2 midnight stay for evaluation of COVID CODE STATUS: Full Code Discussed with: Patient, daughter Anticipated discharge place: Home Past Medical History Past Medical History: Atrial Fibrillation, Cancer, COPD, Diabetes Mellitus, Hearing Disorder / Deafness, Hyperlipidemia, Hypertension, Myocardial Infarction ([place]), Osteoarthritis (OA), Pneumonia, Prostate Disorder, Renal Disease, Skin D isorder, Sleep Apnea/CPAP/BIPAP Additional Past Medical History / Comment(s): bowel perforation 2006, prostate CA (radiation tx 2009)., skin cancer., pacemaker, uses c-pap machine, hx of falls- recent fall and left hand has a sore and is bruised., uses walker cane & scooter ., hearing aids., blood in stool. Last Myocardial Infarction Date:: july 2021 History of Any Multi-Drug Resistant Organisms: None Reported Past Surgical History: Back Surgery, Bowel Resection, Cardiac Ablation, Heart Catheterization, Heart Catheterization With Stent, Orthopedic Surgery, Pacemaker Additional Past Surgical History / Comment(s): back surgery x2 (has cage), bowel surgery for perforation with colostomy/colostomy later reversed, nasal surgery for polyps, otoniel cataracts, arthroscopy rt knee, heart cath with stent august 2021 Past Anesthesia/Blood Transfusion Reactions: No Reported Reaction Date of Last Stent Placement:: august 2021 Type of Cardiac Device: Permanent Pacemaker Device Placement Date:: 2013 Past Psychological History: Anxiety, Depression Additional Psychological History / Comment(s): . Smoking Status: Former smoker Past Alcohol Use History: None Reported Additional Past Alcohol Use History / Comment(s): quit smoking 1965, hx of 1 ppd. Past Drug Use History: None Reported - Past Family History Mother Family Medical History: Cancer Additional Family Medical History / Comment(s): brain cancer Sister(s) Family Medical History: Cancer Additional Family Medical History / Comment(s): breast cancer Father Family Medical History: Diabetes Mellitus, Renal Disease Medications and Allergies Home Medications Medication Instructions Recorded Confirmed Type Atorvastatin [Lipitor] 80 mg PO HS 07/09/14 03/12/23 History Ferrous Sulfate [Iron (65 MG 325 mg PO BID 08/06/15 03/12/23 History Elemental)] Tamsulosin [Flomax] 0.4 mg PO HS 01/27/16 03/12/23 History Bicalutamide [Casodex] 50 mg PO HS 11/15/17 03/12/23 History Warfarin [Coumadin] 5 mg PO HS 05/01/19 03/12/23 History Fluticasone Propion/Salmeterol 1 puff INHALATION RT-BID 08/12/21 03/12/23 History [Wixela 100-50 Inhub] Metoprolol Succinate (ER) [Toprol 50 mg PO DAILY 08/12/21 03/12/23 History XL] Aspirin 81 mg PO DAILY 6 Days #6 tab 08/21/21 03/12/23 Rx Calcium Carbonate/Vitamin D3 1 tab PO BID 10/29/22 03/12/23 History [Calcium 600 mg-D3 20 mcg (800 unit)] Furosemide [Lasix] 20 mg PO BID 10/29/22 03/12/23 History Insulin Glargine,Hum.rec.anlog 24 units SQ HS 10/29/22 03/12/23 History [Lantus Solostar Pen] Potassium Chloride [K-Tab ER] 10 meq PO BID 10/29/22 03/12/23 History Gabapentin [Neurontin] 300 mg PO BID #12 cap 12/22/22 03/12/23 Rx Albuterol Sulfate [Accuneb] 0.63 mg INHALATION RT-QID 03/12/23 03/12/23 History Amiodarone [Cordarone] 100 mg PO DAILY 03/12/23 03/12/23 History Insulin Aspart 6 - 8 units SQ TID 03/12/23 03/12/23 History Venlafaxine HCl [Effexor] 75 mg PO BID 03/12/23 03/12/23 History busPIRone HCl [Buspar] 10 mg PO BID 03/12/23 03/12/23 History hydroCHLOROthiazide [Hydrodiuril] 25 mg PO DAILY 03/12/23 03/12/23 History lisinopriL [Zestril] 2.5 mg PO DAILY 03/12/23 03/12/23 History Allergies Allergy/AdvReac Type Severity Reaction Status Date / Time adhesive Allergy blisters, Verified 03/12/23 22:25 skin peels ibuprofen [From Motrin] AdvReac Abdominal Verified 03/12/23 22:25 Pain Physical Exam Vitals: Vital Signs Temp Pulse Resp BP Pulse Ox 03/12/23 23:29 102.2 F H 60 20 108/53 95 03/12/23 19:46 60 18 128/69 99 Intake and Output 03/12/23 03/12/23 03/13/23 14:59 22:59 06:59 Other: Weight 102.058 kg Results CBC & Chem 7: 03/12/23 20:05 03/12/23 20:05 Labs: Abnormal Lab Results - Last 24 Hours (Table) 03/12/23 03/12/23 03/12/23 Range/Units 20:05 20:05 20:05 RBC 3.89 L (4.30-5.90) m/uL Hgb 11.5 L (13.0-17.5) gm/dL Hct 34.2 L (39.0-53.0) % Lymphocytes # 0.5 L (1.0-4.8) k/uL INR 1.2 H (<1.2) APTT 31.1 H (22.0-30.0) sec Sodium 131 L (137-145) mmol/L Chloride 93 L (98-107) mmol/L BUN 53 H (9-20) mg/dL Creatinine 2.04 H (0.66-1.25) mg/dL Glucose 147 H (74-99) mg/dL Troponin I (0.000-0.034) ng/mL SARS-CoV-2 (PCR) (Not Detectd) 03/12/23 03/12/23 Range/Units 20:05 20:13 RBC (4.30-5.90) m/uL Hgb (13.0-17.5) gm/dL Hct (39.0-53.0) % Lymphocytes # (1.0-4.8) k/uL INR (<1.2) APTT (22.0-30.0) sec Sodium (137-145) mmol/L Chloride (98-107) mmol/L BUN (9-20) mg/dL Creatinine (0.66-1.25) mg/dL Glucose (74-99) mg/dL Troponin I 0.066 H* (0.000-0.034) ng/mL SARS-CoV-2 (PCR) Detected A (Not Detectd)
[2023-03-13 07:32] LABS: Basophils % (A) 1 %; Eosinophils # (A) 0.1 k/uL (0-0.7); Eosinophils % (A) 2 %; HCT 37.4 % (39.0-53.0); HGB 11.9 gm/dL (13.0-17.5); Lymphocytes # (A) 0.6 k/uL (1.0-4.8); Lymphocytes % (A) 9 %; MCH 28.2 pg (25.0-35.0); MCHC 31.7 g/dL (31.0-37.0); Mean Platelet Volume 9.6; Monocytes % (A) 14 %; Neutrophils # (A) 5.2 k/uL (1.3-7.7); Neutrophils % (A) 72 %; Platelet Count 172 k/uL (150-450); RDW 15.3 % (11.5-15.5); WBC 7.2 k/uL (3.8-10.6)
[2023-03-13 08:00] LABS: INR 1.1 (<1.2); Prothrombin Time 12.1 sec (10.0-12.5)
[2023-03-13] MEDS: SYMBICORT 80-4.5 MCG INHALER INHALATION SCH (08:12)
[2023-03-13 08:20] LABS: African American GFR (CKD) 35 (>60 ml/min/1.73 sqM); Anion Gap 12 mmol/L; Blood Urea Nitrogen 49 mg/dL (9-20); Carbon Dioxide 24 mmol/L (22-30); Chloride 97 mmol/L (98-107); Glucose 115 mg/dL (74-99); Non-African American GFR(CKD) 30 (>60 ml/min/1.73 sqM); Sodium 133 mmol/L (137-145)
[2023-03-13] MEDS: METOPROLOL SUCCINATE (ER) 50 MG TAB.ER.24H PO SCH (08:20)
[2023-03-13] MEDS: GABAPENTIN 300 MG CAP PO SCH (08:20)
[2023-03-13] MEDS: ASPIRIN 81 MG PO SCH (08:20)
[2023-03-13] MEDS: busPIRone HCl 10 MG TAB PO SCH (08:20)
[2023-03-13] MEDS: VENLAFAXINE HCL 75 MG TAB PO SCH (08:42)
[2023-03-13] MEDS: AMIODARONE 100 MG TAB PO SCH (08:42)
[2023-03-13 12:24] LABS: Glucose,Whole Blood 133 mg/dL (70-110)
[2023-03-13 12:29] LABS: Appearance,Urine Clear (Clear); Bilirubin,Urine Negative (Negative); Blood,Urine Negative (Negative); Color,Urine Colorless; Glucose,Urine (UA) Negative (Negative); Ketones,Urine Negative (Negative); Leukocyte Esterase,Urine Negative (Negative); Nitrite,Urine Negative (Negative); Protein,Urine Negative (Negative); Specific Gravity,Urine 1.014 (1.001-1.035); Urobilinogen,Urine <2.0 mg/dL (<2.0)
--- NOTE | 2023-03-13 15:28 | P.PN ---
Subjective Progress Note Date: 03/13/23 Principal diagnosis: Weakness CC: Weakness Subjective: Mr. Salvador was seen and examined. He is having cough. Denies any chest pain or shortness of breath. Not a great historian but apparently that is baseline. Daughter was in the room planning care discussed with her. Awaiting PT assessment. Objective: Vitals: Reviewed General: No acute distress HEENT: Mucous membranes moist neck supple Cardiovascular: RRR, S1-S2 Lungs: Breath sounds equal, diminished without wheezing or crackles Abdomen: Soft, nontender, nondistended Extremities: No lower extremity edema Pertinent labs and imaging reviewed Assessment and plan: 1. Generalized weakness Likely secondary to COVID-19 infection. PT/OT. Will likely need placement 2. COVID-19 infection Not requiring oxygen therefore we will not start dexamethasone. I was notified hospital does not have remdesivir. 3. Indeterminate troponin Flat trended. Likely secondary to COVID-19 and poor renal clearance. No chest pain. EKG was paced rhythm and no acute ischemia interpreted on my review. 4. Paroxysmal A. fib Rate controlled. Continue with metoprolol and amiodarone. INR not therapeutic, pharmacy to dose Coumadin. 5. Unspecified psych disorder Continue with Effexor 6. History of hypertension BP borderline. Hold lisinopril and metoprolol. Resume once BP improved. On IV fluids 7. Acute kidney injury on CKD Baseline creatinine about 1.5 -1.7. Creatinine downtrending slowly. Serial BMPs. This does not continue to trend down we will work up further. 8. History of CAD Aspirin and statin VTE prophylaxis with SCDs, pharmacy to dose Coumadin Objective - Vital Signs Vital signs: Vital Signs Temp 100.0 F H 03/13/23 13:50 Pulse 60 03/13/23 13:50 Resp 17 03/13/23 12:07 BP 97/48 03/13/23 13:50 Pulse Ox 97 03/13/23 13:50 FiO2 Intake & Output 03/12/23 03/13/23 03/13/23 18:59 06:59 18:59 Output Total 300 Balance -300 Weight 102.058 kg Output: Urine 300 Other: Voiding Method Urinal Urinal # Voids 1 - Labs CBC & Chem 7: 03/13/23 07:10 03/13/23 07:10 Labs: Abnormal Lab Results - Last 24 Hours (Table) 03/12/23 03/12/23 03/12/23 Range/Units 20:05 20:05 20:05 RBC 3.89 L (4.30-5.90) m/uL Hgb 11.5 L (13.0-17.5) gm/dL Hct 34.2 L (39.0-53.0) % Lymphocytes # 0.5 L (1.0-4.8) k/uL INR 1.2 H (<1.2) APTT 31.1 H (22.0-30.0) sec Sodium 131 L (137-145) mmol/L Chloride 93 L (98-107) mmol/L BUN 53 H (9-20) mg/dL Creatinine 2.04 H (0.66-1.25) mg/dL Glucose 147 H (74-99) mg/dL POC Glucose (mg/dL) (70-110) mg/dL Troponin I (0.000-0.034) ng/mL SARS-CoV-2 (PCR) (Not Detectd) 03/12/23 03/12/23 03/12/23 Range/Units 20:05 20:13 23:57 RBC (4.30-5.90) m/uL Hgb (13.0-17.5) gm/dL Hct (39.0-53.0) % Lymphocytes # (1.0-4.8) k/uL INR (<1.2) APTT (22.0-30.0) sec Sodium (137-145) mmol/L Chloride (98-107) mmol/L BUN (9-20) mg/dL Creatinine (0.66-1.25) mg/dL Glucose (74-99) mg/dL POC Glucose (mg/dL) (70-110) mg/dL Troponin I 0.066 H* 0.077 H* (0.000-0.034) ng/mL SARS-CoV-2 (PCR) Detected A (Not Detectd) 03/13/23 03/13/23 03/13/23 Range/Units 07:10 07:10 07:10 RBC 4.20 L (4.30-5.90) m/uL Hgb 11.9 L (13.0-17.5) gm/dL Hct 37.4 L (39.0-53.0) % Lymphocytes # 0.6 L (1.0-4.8) k/uL INR (<1.2) APTT (22.0-30.0) sec Sodium 133 L (137-145) mmol/L Chloride 97 L (98-107) mmol/L BUN 49 H (9-20) mg/dL Creatinine 1.96 H (0.66-1.25) mg/dL Glucose 115 H (74-99) mg/dL POC Glucose (mg/dL) (70-110) mg/dL Troponin I 0.077 H* (0.000-0.034) ng/mL SARS-CoV-2 (PCR) (Not Detectd) 03/13/23 Range/Units 12:23 RBC (4.30-5.90) m/uL Hgb (13.0-17.5) gm/dL Hct (39.0-53.0) % Lymphocytes # (1.0-4.8) k/uL INR (<1.2) APTT (22.0-30.0) sec Sodium (137-145) mmol/L Chloride (98-107) mmol/L BUN (9-20) mg/dL Creatinine (0.66-1.25) mg/dL Glucose (74-99) mg/dL POC Glucose (mg/dL) 133 H (70-110) mg/dL Troponin I (0.000-0.034) ng/mL SARS-CoV-2 (PCR) (Not Detectd)
[2023-03-13 17:04] LABS: Glucose,Whole Blood 149 mg/dL (70-110)
[2023-03-13] MEDS: WARFARIN 5 MG TAB PO ONE (18:07)
[2023-03-13] MEDS: ATORVASTATIN 80 MG TAB PO SCH (20:13)
[2023-03-13] MEDS: BICALUTAMIDE 50 MG TAB PO SCH (20:13)
[2023-03-13] MEDS: TAMSULOSIN 0.4 MG CAP.ER.24H PO SCH (20:13)
[2023-03-14 09:40] LABS: Basophils % (A) 0 %; Eosinophils % (A) 0 %; HCT 36.5 % (39.0-53.0); HGB 11.8 gm/dL (13.0-17.5); Lymphocytes # (A) 0.7 k/uL (1.0-4.8); Lymphocytes % (A) 12 %; MCH 29.3 pg (25.0-35.0); MCHC 32.4 g/dL (31.0-37.0); MCV 90.3 fL (80.0-100.0); Mean Platelet Volume 11.4; Monocytes # (A) 0.8 k/uL (0-1.0); Monocytes % (A) 13 %; Neutrophils # (A) 4.3 k/uL (1.3-7.7); Neutrophils % (A) 70 %; Platelet Count 102 k/uL (150-450); RBC 4.04 m/uL (4.30-5.90); RDW 15.4 % (11.5-15.5); WBC 6.1 k/uL (3.8-10.6)
[2023-03-14 09:46] LABS: INR 1.1 (<1.2); Prothrombin Time 12.1 sec (10.0-12.5)
--- NOTE | 2023-03-14 10:02 | P.PN ---
Subjective Principal diagnosis: Weakness CC: Weakness Subjective: Mr. Salvador was seen and examined. He is denying any shortness of breath. Weakness seems to be improving. Cough is unchanged. Plan of care discussed with him. Objective: Vitals: Reviewed General: No acute distress HEENT: Mucous membranes moist neck supple Cardiovascular: RRR, S1-S2 Lungs: Breath sounds equal, diminished without wheezing or crackles Abdomen: Soft, nontender, nondistended Extremities: No lower extremity edema Pertinent labs and imaging reviewed Assessment and plan: 1. Generalized weakness Likely secondary to COVID-19 infection. PT/OT. Will likely need placement. Awaiting PT assessment. 2. COVID-19 infection Not requiring oxygen therefore we will not start dexamethasone. I was notified hospital does not have remdesivir. 3. Indeterminate troponin Flat trended. Likely secondary to COVID-19 and poor renal clearance. No chest pain. EKG was paced rhythm and no acute ischemia interpreted on my review. 4. Paroxysmal A. fib Rate controlled. Continue with metoprolol and amiodarone. INR not therapeutic, pharmacy to dose Coumadin. 5. Unspecified psych disorder Continue with Effexor 6. History of hypertension BP borderline. Hold lisinopril and metoprolol. Resume once BP improved. On IV fluids 7. Acute kidney injury on CKD Baseline creatinine about 1.5 -1.7. Creatinine downtrending slowly. Serial BMPs. This does not continue to trend down we will work up further. Awaiting today's BMP 8. History of CAD Aspirin and statin VTE prophylaxis with SCDs, pharmacy to dose Coumadin Objective - Vital Signs Vital signs: Vital Signs Temp 97.6 F 03/14/23 08:40 Pulse 60 03/14/23 08:40 Resp 17 03/14/23 08:40 BP 117/66 03/14/23 08:40 Pulse Ox 96 03/14/23 08:40 FiO2 Intake & Output 03/13/23 03/14/23 03/14/23 18:59 06:59 18:59 Output Total 300 250 Balance -300 -250 Output: Urine 300 250 Other: Voiding Method Urinal Urinal Urinal # Voids 1 2 - Labs CBC & Chem 7: 03/14/23 08:44 03/13/23 07:10 Labs: Abnormal Lab Results - Last 24 Hours (Table) 03/13/23 03/13/2303/14/23 Range/Units 12:23 17:03 08:44 RBC 4.04 L (4.30-5.90) m/uL Hgb 11.8 L (13.0-17.5) gm/dL Hct 36.5 L (39.0-53.0) % Plt Count 102 L (150-450) k/uL Lymphocytes # 0.7 L (1.0-4.8) k/uL POC Glucose (mg/dL) 133 H 149 H (70-110) mg/dL
[2023-03-14 10:19] LABS: African American GFR (CKD) 43 (>60 ml/min/1.73 sqM); Anion Gap 12 mmol/L; Blood Urea Nitrogen 44 mg/dL (9-20); Calcium 8.6 mg/dL (8.4-10.2); Carbon Dioxide 23 mmol/L (22-30); Chloride 99 mmol/L (98-107); Glucose 117 mg/dL (74-99); Non-African American GFR(CKD) 37 (>60 ml/min/1.73 sqM); Potassium 4.1 mmol/L (3.5-5.1); Sodium 134 mmol/L (137-145)
[2023-03-14] MEDS: WARFARIN 5 MG TAB PO ONE (17:17)
[2023-03-14] MEDS ORDERED: bisacodyL 5 MG TABLET.DR PO PRN (18:13)
[2023-03-15 09:59] LABS: INR 1.3 (<1.2); Prothrombin Time 13.2 sec (10.0-12.5)
[2023-03-15 10:08] LABS: African American GFR (CKD) 44 (>60 ml/min/1.73 sqM); Anion Gap 12 mmol/L; Blood Urea Nitrogen 43 mg/dL (9-20); Calcium 8.4 mg/dL (8.4-10.2); Carbon Dioxide 20 mmol/L (22-30); Chloride 101 mmol/L (98-107); Glucose 253 mg/dL (74-99); Non-African American GFR(CKD) 38 (>60 ml/min/1.73 sqM); Sodium 133 mmol/L (137-145)
[2023-03-15 10:25] LABS: Basophils % (A) 1 %; Eosinophils # (A) 0.1 k/uL (0-0.7); Eosinophils % (A) 2 %; HCT 38.4 % (39.0-53.0); HGB 12.2 gm/dL (13.0-17.5); Hypochromasia Slight; Lymphocytes # (A) 0.8 k/uL (1.0-4.8); Lymphocytes % (A) 20 %; MCH 28.9 pg (25.0-35.0); MCHC 31.9 g/dL (31.0-37.0); MCV 90.8 fL (80.0-100.0); Mean Platelet Volume 10.6; Monocytes # (A) 0.5 k/uL (0-1.0); Monocytes % (A) 13 %; Neutrophils # (A) 2.5 k/uL (1.3-7.7); Neutrophils % (A) 60 %; Platelet Count 137 k/uL (150-450); RBC 4.22 m/uL (4.30-5.90); RDW 15.3 % (11.5-15.5); WBC 4.1 k/uL (3.8-10.6)
--- NOTE | 2023-03-15 16:15 | P.PN ---
Subjective Progress Note Date: 03/15/23 Patient is a 87-year-old male with a PMH of CAD status post stent and pacemaker placement, chronic kidney disease stage IIIB, paroxysmal A. fib on Coumadin, hypertension, hyperlipidemia, type II DM, COPD, who presented to the emergency room for shortness of breath and weakness. In the emergency room had/cervical spine CT revealed moderate/severe cervical spondylosis. EKG revealed of the paced rhythm at 62 bpm. Chest x-ray revealed cardiomegaly with pulmonary venous congestion. Laboratory evaluation was remarkable for troponin 0.066, pro BNP 6340, BUN 53, creatinine 2.0 (baseline 1.6), sodium 131, and glucose 147. The patient had a T-max of 102.2F in the emergency room with SpO2 94% on room air and BP 108/53. 03/15 Patient was seen and examined. He is doing well. Daughter reports frequent falls and episodes of unresponiveness that has been getting more frequent over the past week. He is bradycardiac with HR in the 50s. CBC Hg 12.2 Plt 137. INR 1.3. BMP Na 133, bicarb 20, BUN 43, Cr 1.62, glu 253. General: non toxic, no distress, appears at stated age Derm: warm, dry Head: atraumatic, normocephalic, symmetric Eyes: EOMI, no lid lag, anicteric sclera Cardiovascular: good distal perfusion in all 4 extremities Lungs: CTA bilateral, no rhonchi, no rales , no accessory muscle use Ext: no gross muscle atrophy, no edema, no contractures Neuro: no focal neuro deficits Psych: Alert, oriented, appropriate affect Based on my assessment of this patient, this patient meets a moderate complexity level of care. Patient has an acute diagnosis of acute metabolic encephalopathy secondary to COVID 19 that poses a threat to life or bodily function. COVID-19 infection: Not requiring supplemental oxygen. PT and OT consulted. Needs placement. Unresponsiveness: Fall precautions. Orthostats and Echo is ordered. Will attempt to interrogate pacemaker. Cardiology consulted. Elevated troponin: Flat. ACS ruled out. Likely related to COVID and poor renal clearance. MARCO A on chronic kidney disease: Trending down. At baseline. Debility with multiple falls Subtherapeutic INR: Coumadin dosed per pharmacy. CODE STATUS: FULL CODE DVT Prophylaxis: Coumadin. GI Prophylaxis: Designated medical POA if patient is not able to make medical decisions for themselves: I have reviewed the following remediation consultant notes: I have reviewed the results of the following tests: CBC, BMP. I have ordered the following tests: Echo ordered. I have discussed the care of this patient with the following independent historian: I have independently interpreted the following test below: I have discussed the management of this patient with the following physician: Objective - Vital Signs Vital signs: Vital Signs Temp 98.0 F 03/15/23 05:00 Pulse 60 03/15/23 05:00 Resp 16 03/15/23 05:00 BP 119/56 03/15/23 05:00 Pulse Ox 93 L 03/15/23 05:00 FiO2 Intake & Output 03/14/23 03/15/23 03/15/23 18:59 06:59 18:59 Intake Total 476 Balance 476 Intake: Oral 476 Other: Voiding Method Urinal Urinal # Voids 2 1 # Bowel Movements 1 - Labs CBC & Chem 7: 03/15/23 08:55 03/15/23 08:55 Labs: Abnormal Lab Results - Last 24 Hours (Table) 03/14/23 03/14/23 Range/Units 08:44 08:44 RBC 4.04 L (4.30-5.90) m/uL Hgb 11.8 L (13.0-17.5) gm/dL Hct 36.5 L (39.0-53.0) % Plt Count 102 L (150-450) k/uL Lymphocytes # 0.7 L (1.0-4.8) k/uL Sodium 134 L (137-145) mmol/L BUN 44 H (9-20) mg/dL Creatinine 1.66 H (0.66-1.25) mg/dL Glucose 117 H (74-99) mg/dL
[2023-03-15] MEDS: WARFARIN 3 MG TAB PO ONE (16:59)
[2023-03-16 06:33] LABS: Glucose,Whole Blood 189 mg/dL (70-110)
[2023-03-16 10:20] LABS: INR 1.6 (<1.2); Prothrombin Time 16.4 sec (10.0-12.5)
[2023-03-16 11:28] LABS: Glucose,Whole Blood 238 mg/dL (70-110)
--- NOTE | 2023-03-16 12:21 | CA ---
Transthoracic Echo Report Name: Mario Salvador Age: 87 Gender: M : 1935 Exam Date: 03/15/2023 16:34 Exam Location: [facility] Ht (in): 69 Wt (lb): 225 Ordering Physician: Tanya Hernandez MD Attending/Referring Phys: Spiritual Counselor Lizandor Bryant Procedure CPT: Indications: trop Cardiac Hx: Technical Quality: Technically difficult study Contrast 1: Definity Total Dose (mL): 2 Contrast 2: Total Dose (mL): MEASUREMENTS (Male / Female) Normal Values 2D ECHO LV Diastolic Diameter PLAX 4.7 cm 4.2 - 5.9 / 3.9 - 5.3 cm LV Systolic Diameter PLAX 4.2 cm IVS Diastolic Thickness 1.0 cm 0.6 - 1.0 / 0.6 - 0.9 cm LVPW Diastolic Thickness 1.2 cm 0.6 - 1.0 / 0.6 - 0.9 cm LV Relative Wall Thickness 0.5 RV Internal Dim ED PLAX 3.2 cm LVOT Diameter 2.0 cm Aortic Root Diameter 3.1 cm LA Systolic Diameter LX 4.0 cm 3.0 - 4.0 / 2.7 - 3.8 cm LV Diastolic Volume MOD BP 45.8 cm??? 67 - 155 / 56 - 104 cm??? LV Systolic Volume MOD BP 27.3 cm??? - 58 / 19 - 49 cm??? LV Ejection Fraction MOD BP 40.4 % >= 55 % LV Cardiac Index MOD BP 522.8 cm???/min???m??? LV Diastolic Volume MOD 4C 39.2 cm??? LV Systolic Volume MOD 4C 23.7 cm??? LV Ejection Fraction MOD 4C 39.4 % LV Cardiac Index MOD 4C 436.3 cm???/min???m??? LV Diastolic Length 4C 6.6 cm LV Systolic Length 4C 6.4 cm LV Diastolic Volume MOD 2C 50.1 cm??? LV Systolic Volume MOD 2C 30.3 cm??? LV Ejection Fraction MOD 2C 39.6 % LV Cardiac Index MOD 2C 561.2 cm???/min???m??? LV Diastolic Length 2C 7.1 cm LV Systolic Length 2C 6.7 cm LA Volume 90.2 cm??? 18 - 58 / 22 - 52 cm??? LA Volume Index 39.9 cm???/m??? 16 - 28 cm???/m??? DOPPLER AV Peak Velocity 262.3 cm/s AV Peak Gradient 27.5 mmHg AV Mean Velocity 192.8 cm/s AV Mean Gradient 16.6 mmHg AV Velocity Time Integral 63.4 cm LVOT Peak Velocity 66.6 cm/s LVOT Peak Gradient 1.8 mmHg LVOT Velocity Time Integral 15.0 cm LVOT Stroke Volume 44.9 cm??? LVOT Stroke Volume Index 20.7 ml/m??? LVOT Cardiac Index 1269.6 cm???/min???m??? AV Area Cont Eq vti 0.7 cm??? AV Area Cont Eq pk 0.8 cm??? MV Peak Velocity 131.7 cm/s MV Peak Gradient 6.9 mmHg MV Mean Velocity 53.7 cm/s MV Mean Gradient 1.6 mmHg MV Velocity Time Integral 34.2 cm MR Peak Velocity 388.2 cm/s MR Peak Gradient 60.3 mmHg Mitral E Point Velocity 129.4 cm/s Mitral A Point Velocity 36.7 cm/s Mitral E to A Ratio 3.5 MV Deceleration Time 192.4 ms MV E' Velocity 4.9 cm/s Mitral E to MV E' Ratio 26.2 TR Peak Velocity 250.0 cm/s TR Peak Gradient 25.0 mmHg Right Ventricular Systolic Press 30.0 mmHg PV Peak Velocity 69.7 cm/s PV Peak Gradient 1.9 mmHg FINDINGS Left Ventricle Normal LV size and wall thickness. Left ventricular ejection fraction is estimated at 35-40 %. Right Ventricle Normal right ventricular size. Right Atrium Normal right atrial size. Left Atrium Mild to Moderate left atrial dilatation. LA volue index= 42ml/m2 Mitral Valve Mild MV calcification. Mild MR. Aortic Valve Moderate to severe AV calcification. AV peak Gradient= 27.5mmHg. AV mean Gradient = 16.6mmHg. Trace AI. Tricuspid Valve Tricuspid valve not well visualized. Mild TR. Pulmonic Valve Pulmonic valve not well visualized. No pulmonic regurgitation. Pericardium Not well visualized. Aorta Normal size aortic root. CONCLUSIONS Moderate LV systolic dysfunction with an ejection fraction of 3540% Left atrial enlargement Mild aortic stenosis Previewed by: Dr. Henry Louis MD (Electronically Signed) Final Date: 16 March 2023 12:20
--- NOTE | 2023-03-16 13:15 | P.PN ---
Subjective Progress Note Date: 03/16/23 Patient is a 87-year-old male with a PMH of CAD status post stent and pacemaker placement, chronic kidney disease stage IIIB, paroxysmal A. fib on Coumadin, hypertension, hyperlipidemia, type II DM, COPD, who presented to the emergency room for shortness of breath and weakness. In the emergency room had/cervical spine CT revealed moderate/severe cervical spondylosis. EKG revealed of the paced rhythm at 62 bpm. Chest x-ray revealed cardiomegaly with pulmonary venous congestion. Laboratory evaluation was remarkable for troponin 0.066, pro BNP 6340, BUN 53, creatinine 2.0 (baseline 1.6), sodium 131, and glucose 147. The patient had a T-max of 102.2F in the emergency room with SpO2 94% on room air and BP 108/53. 03/15 Patient was seen and examined. He is doing well. Daughter reports frequent falls and episodes of unresponiveness that has been getting more frequent over the past week. He is bradycardiac with HR in the 50s. CBC Hg 12.2 Plt 137. INR 1.3. BMP Na 133, bicarb 20, BUN 43, Cr 1.62, glu 253. 03/16 Patient was seen and examined. States he is feeling well. Echocardiogram, EEG and pacemaker interrogation ordered yesterday due to description of unresponsive episodes from the daughter.INR is 1.6. General: non toxic, no distress, appears at stated age Derm: warm, dry Head: atraumatic, normocephalic, symmetric Eyes: EOMI, no lid lag, anicteric sclera Cardiovascular: good distal perfusion in all 4 extremities Lungs: CTA bilateral, no rhonchi, no rales , no accessory muscle use Ext: no gross muscle atrophy, no edema, no contractures Neuro: no focal neuro deficits Psych: Alert, oriented, appropriate affect Based on my assessment of this patient, this patient meets a moderate complexity level of care. Patient has an acute diagnosis of acute metabolic encephalopathy secondary to COVID 19 that poses a threat to life or bodily function. COVID-19 infection: Not requiring supplemental oxygen. PT and OT consulted. Needs placement. Unresponsiveness: Fall precautions. Echo shows severe and EF 35-40%. Interrogate pacemaker. Cardiology consulted. HFrEF: Euvolemic. Patient would benefit from beta ramin and ACEi. Cardiology consulted. Severe : Cardiology consulted. Elevated troponin: Flat. ACS ruled out. Likely related to COVID and poor renal clearance. MARCO A on chronic kidney disease: Trending down. At baseline. Debility with multiple falls Subtherapeutic INR: Coumadin dosed per pharmacy. CODE STATUS: FULL CODE DVT Prophylaxis: Coumadin. GI Prophylaxis: Designated medical POA if patient is not able to make medical decisions for themselves: I have reviewed the following marketing operations consultant notes: I have reviewed the results of the following tests: INR, Echo I have ordered the following tests: Pacemaker interrogation. I have discussed the care of this patient with the following independent historian: I have independently interpreted the following test below: I have discussed the management of this patient with the following physician: Objective - Vital Signs Vital signs: Vital Signs Temp 97.3 F L 03/16/23 08:00 Pulse 60 03/16/23 08:00 Resp 14 03/16/23 08:00 BP 137/65 03/16/23 08:00 Pulse Ox 100 03/16/23 08:00 FiO2 Intake & Output 03/15/23 03/16/23 03/16/23 18:59 06:59 18:59 Intake Total 240 180 240 Output Total 1 Balance 240 179 240 Intake: Oral 240 180 240 Output: Urine 1 Other: Voiding Method Urinal Urinal Urinal # Voids 2 1 - Labs CBC & Chem 7: 03/15/23 08:55 03/15/23 08:55 Labs: Abnormal Lab Results - Last 24 Hours (Table) 03/16/23 03/16/23 03/16/23 Range/Units 06:26 08:37 11:27 PT 16.4 H (10.0-12.5) sec INR 1.6 H (<1.2) POC Glucose (mg/dL) 189 H 238 H (70-110) mg/dL
[2023-03-16 17:01] LABS: Glucose,Whole Blood 284 mg/dL (70-110)
[2023-03-16] MEDS: WARFARIN 5 MG TAB PO ONE (17:13)
[2023-03-16] MEDS ORDERED: DEXTROSE 50% SYRINGE 50 ML IVP PRN ×2 (17:36)
--- NOTE | 2023-03-16 18:16 | P.CRDCN ---
History of Present Illness Consult date: 03/16/23 History of present illness: HISTORY OF PRESENTING ILLNESS 87-year-old with PMH of CAD status post PCI, PPM, CKD, Roxicet atrial fibrillation on warfarin, hypertension, dyslipidemia, type 2 diabetes, COPD presented to the emergency department with shortness of breath and generalized weakness. Over the last 1 week patient has been more confused and having multiple falls. He reported that he fell on Wednesday in his elbow and possibly his head. Admission ECG revealed paced rhythm with a heart rate of 62 bpm. Pacemaker interrogation reveals 98% 3 paced rhythm with 3 years of ER eye. There is no significant arrhythmias or ventricular tachycardias noticed on pacemaker interrogation. His labs showed a troponin of 0.06, BNP of 6000, BUN 53, creatinine 2. His baseline creatinine is 1.6. He was given IV fluids on admission and today his c reatinine has came back to 1.6. He was also noticed to be febrile on admission. He was tested for COVID and was found to be positive REVIEW OF SYSTEMS 14 point review of system is negative except what is mentioned above in HPI. PHYSICAL EXAMINATION Vital signs reviewed. Head: Normocephalic. Eyes: Sclerae nonicteric. Neck: Brisk carotid upstroke, Lungs: Clear to auscultation. Heart: Regular rate and rhythm, systolic murmur audible in aortic area. Abdomen: Soft nontender, positive bowel sounds no organomegaly. Extremities: No edema, intact distal pulses. 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 Continue warfarin with goal Order of 2-3. IV heparin drip was discontinued because of significant bruising. Continue amiodarone, aspirin, atorvastatin Resume lisinopril 2.5 and metoprolol 50 mg daily Uptitrate guideline directed medical therapy as tolerated. Past Medical History Past Medical History: Atrial Fibrillation, Cancer, COPD, Diabetes Mellitus, Hearing Disorder / Deafness, Hyperlipidemia, Hypertension, Myocardial Infarction ([place]), Osteoarthritis (OA), Pneumonia, Prostate Disorder, Renal Disease, Skin Disorder, Sleep Apnea/CPAP/BIPAP Additional Past Medical History / Comment(s): bowel perforation 2006, prostate CA (radiation tx 2009)., skin cancer., pacemaker, uses c-pap machine, hx of falls- recent fall and left hand has a sore and is bruised., uses walker cane & scooter ., hearing aids., blood in stool. Last Myocardial Infarction Date:: july 2021 History of Any Multi-Drug Resistant Organisms: None Reported Past Surgical History: Back Surgery, Bowel Resection, Cardiac Ablation, Heart Catheterization, Heart Catheterization With Stent, Orthopedic Surgery, Pacemaker Additional Past Surgical History / Comment(s): back surgery x2 (has cage), bowel surgery for perforation with colostomy/colostomy later reversed, nasal surgery for polyps, otoniel cataracts, arthroscopy rt knee, heart cath with stent august 2021 Past Anesthesia/Blood Transfusion Reactions: No Reported Reaction Date of Last Stent Placement:: august 2021 Type of Cardiac Device: Permanent Pacemaker Device Placement Date:: 2013 Past Psychological History: Anxiety, Depression Additional Psychological History / Comment(s): . Smoking Status: Former smoker Past Alcohol Use History: None Reported Additional Past Alcohol Use History / Comment(s): quit smoking 1964, hx of 1 ppd. Past Drug Use History: None Reported - Past Family History Mother Family Medical History: Cancer Additional Family Medical History / Comment(s): brain cancer Sister(s) Family Medical History: Cancer Additional Family Medical History / Comment(s): breast cancer Father Family Medical History: Diabetes Mellitus, Renal Disease Medications and Allergies Home Medications Medication Instructions Recorded Confirmed Type Atorvastatin [Lipitor] 80 mg PO HS 07/09/14 03/12/23 History Ferrous Sulfate [Iron (65 MG 325 mg PO BID 08/06/15 03/12/23 History Elemental)] Tamsulosin [Flomax] 0.4 mg PO HS 01/27/16 03/12/23 History Bicalutamide [Casodex] 50 mg PO HS 11/15/17 03/12/23 History Warfarin [Coumadin] 5 mg PO HS 05/01/19 03/12/23 History Fluticasone Propion/Salmeterol 1 puff INHALATION RT-BID 08/12/21 03/12/23 History [Wixela 100-50 Inhub] Metoprolol Succinate (ER) [Toprol 50 mg PO DAILY 08/12/21 03/12/23 History XL] Aspirin 81 mg PO DAILY 6 Days #6 tab 08/21/21 03/12/23 Rx Calcium Carbonate/Vitamin D3 1 tab PO BID 10/29/22 03/12/23 History [Calcium 600 mg-D3 20 mcg (800 unit)] Furosemide [Lasix] 20 mg PO BID 10/29/22 03/12/23 History Insulin Glargine,Hum.rec.anlog 24 units SQ HS 10/29/22 03/12/23 History [Lantus Solostar Pen] Potassium Chloride [K-Tab ER] 10 meq PO BID 10/29/22 03/12/23 History Gabapentin [Neurontin] 300 mg PO BID #12 cap 12/22/22 03/12/23 Rx Albuterol Sulfate [Accuneb] 0.63 mg INHALATION RT-QID 03/12/23 03/12/23 History Amiodarone [Cordarone] 100 mg PO DAILY 03/12/23 03/12/23 History Insulin Aspart 6 - 8 units SQ TID 03/12/23 03/12/23 History Venlafaxine HCl [Effexor] 75 mg PO BID 03/12/23 03/12/23 History busPIRone HCl [Buspar] 10 mg PO BID 03/12/23 03/12/23 History hydroCHLOROthiazide [Hydrodiuril] 25 mg PO DAILY 03/12/23 03/12/23 History lisinopriL [Zestril] 2.5 mg PO DAILY 03/12/23 03/12/23 History Allergies Allergy/AdvReac Type Severity Reaction Status Date / Time adhesive Allergy blisters, Verified 03/12/23 22:25 skin peels ibuprofen [From Motrin] AdvReac Abdominal Verified 03/12/23 22:25 Pain Physical Exam Vitals: Vital Signs Temp Pulse Resp BP Pulse Ox 03/16/23 16:00 97.5 F L 60 14 131/81 99 03/16/23 12:00 97.4 F L 60 14 138/66 99 03/16/23 08:00 97.3 F L 60 14 137/65 100 03/16/23 04:00 97.4 F L 60 17 138/64 98 03/16/23 00:00 97.5 F L 71 17 137/69 99 03/15/23 19:44 97.5 F L 60 17 115/63 99 Intake and Output 03/16/23 03/16/23 03/16/23 06:59 14:59 22:59 Intake Total 1100 Output Total 1 Balance -1 1100 Intake: Oral 1100 Output: Urine 1 Other: Voiding Method Urinal Urinal Results 03/15/23 08:55 03/15/23 08:55 Coagulation 03/16/23 Range/Units 08:37 PT 16.4 H (10.0-12.5) sec Current Medications Generic Name Dose Route Start Last Admin Trade Name Freq PRN Reason Stop Dose Admin Acetaminophen 650 mg 03/12/23 22:28 03/16/23 00:16 Acetaminophen Tab 325 Mg Tab PO 650 mg Q6HR PRN Administration Mild Pain or Fever > 100.5 Amiodarone HCl 100 mg 03/13/23 09:00 03/16/23 09:09 Amiodarone 100 Mg Tab PO 100 mg DAILY JERRY Administration Aspirin 81 mg 03/13/23 09:00 03/16/23 09:09 Aspirin 81 Mg PO 81 mg DAILY JERRY Administration Atorvastatin Calcium 80 mg 03/13/23 21:00 03/15/23 20:36 Atorvastatin 80 Mg Tab PO 80 mg HS JERRY Administration Bicalutamide 50 mg 03/13/23 21:00 03/15/23 20:36 Bicalutamide 50 Mg Tab PO 50 mg HS JERRY Administration Bisacodyl 5 mg 03/14/23 18:13 Bisacodyl 5 Mg Tablet.Dr PO DAILY PRN Constipation Budesonide/Formoterol Fumarate 2 puff 03/13/23 08:00 03/16/23 10:41 Symbicort 80-4.5 Mcg Inhaler INHALATION 2 puff RT-BID JERRY Administration Buspirone HCl 10 mg 03/13/23 09:00 03/16/23 09:09 Buspirone Hcl 10 Mg Tab PO 10 mg BID JERRY Administration Dextrose/Water 25 ml 03/16/23 17:36 Dextrose 50% Syringe 50 Ml IVP PER PROTOCOL PRN Hypoglycemia Protocol Dextrose/Water 50 ml 03/16/23 17:36 Dextrose 50% Syringe 50 Ml IVP PER PROTOCOL PRN Hypoglycemia Protocol Gabapentin 300 mg 03/13/23 09:00 03/16/23 09:09 Gabapentin 300 Mg Cap PO 300 mg BID JERRY Administration Insulin Aspart 0 unit 03/16/23 21:00 Insulin Aspart (Novolog) 100 Unit/Ml Vial SQ ACHS REPLACED BY [facility] Protocol Lisinopril 2.5 mg 03/17/23 09:00 Lisinopril 2.5 Mg Tab PO DAILY JERRY Metoprolol Succinate 50 mg 03/17/23 09:00 Metoprolol Succinate (Er) 50 Mg Tab.Er.24h PO DAILY REPLACED BY [facility] Miscellaneous Information 1 each 03/12/23 22:27 Warfarin Per Pharmacy MISCELLANE DIRECTED PRN Per Protocol Protocol Naloxone HCl 0.2 mg 03/12/23 22:28 Naloxone 0.4 Mg/Ml 1 Ml Vial IV Q2M PRN Opioid Reversal Tamsulosin HCl 0.4 mg 03/13/23 21:00 03/15/23 20:36 Tamsulosin 0.4 Mg Cap.Er.24h PO 0.4 mg HS JERRY Administration Venlafaxine HCl 75 mg 03/13/23 09:00 03/16/23 09:09 Venlafaxine Hcl 75 Mg Tab PO 75 mg BID JERRY Administration Intake and Output 03/16/23 03/16/23 03/16/23 06:59 14:59 22:59 Intake Total 1100 Output Total 1 Balance -1 1100 Intake: Oral 1100 Output: Urine 1 Other: Voiding Method Urinal Urinal 03/15/23 08:55 03/15/23 08:55
[2023-03-16 20:40] LABS: Glucose,Whole Blood 261 mg/dL (70-110)
[2023-03-16] MEDS: INSULIN ASPART (NovoLOG) 100 UNIT/ML VIAL SQ SCH (20:52)
--- NOTE | 2023-03-16 23:37 | EEG ---
ELECTROENCEPHALOGRAM REPORT PREAMBLE: This is an 87-year-old male, for episodes of confusion and dizziness in the last week. The patient would be sitting in the chair and not remember where he had been before. He also stares off. The patient has a history of atrial fibrillation, cancer, COPD, diabetes, deafness, prostate disorder, and obstructive sleep apnea. CURRENT MEDICATIONS: 1. Aspirin. 2. Lipitor. 3. BuSpar. 4. Neurontin. 5. Flomax. 6. Effexor. EEG FINDINGS: This is a 21-channel digital EEG recorded with video component, utilizing 10/20 International System with referential and bipolar montages. Background consists of well-developed and moderately well-regulated, predominant 7 Hz low-amplitude theta activity seen in bihemispheric region. Background is posterior dominant and seems to be reactive to eye opening and closing. Photic stimulation was not performed. Different stages of sleep were not seen. No focal or generalized epileptiform activity was seen. IMPRESSION: This is an abnormal EEG due to background slowing of mild degree, suggestive of encephalopathy. No epileptiform activity was seen. MMODL / IJN: [id number] /
[2023-03-17 01:33] VITALS: PULSE 64
[2023-03-17 06:29] LABS: Glucose,Whole Blood 233 mg/dL (70-110)
[2023-03-17] MEDS: METOPROLOL SUCCINATE (ER) 50 MG TAB.ER.24H PO SCH (08:51)
[2023-03-17 09:07] VITALS: BP 153/72; RESP 16; TEMP 98.1
--- NOTE | 2023-03-17 09:07 | US ---
EXAMINATION TYPE: US carotid duplex BILAT DATE OF EXAM: 03/17/2023 COMPARISON: NONE CLINICAL INDICATION: Male, 87 years old with history of syncope; No history of stroke. Weakness. TECHNIQUE: Carotid duplex ultrasound examination. Indirect Doppler criteria was utilized. FINDINGS: EXAM MEASUREMENTS: RIGHT: Peak Systolic Velocity (PSV) cm/sec ----- Right CCA: 38.7 ----- Right ICA: 56.6 ----- Right ECA: 50.4 ICA/CCA ratio: 1.5 RIGHT: End Diastole cm/sec ----- Right CCA: 0.0 ----- Right ICA: 12.7 ----- Right ECA: 0.0 LEFT: Peak Systolic Velocity (PSV) cm/sec ----- Left CCA: 62.6 ----- Left ICA: 98.7 ----- Left ECA: 71.4 ICA/CCA ratio: 1.6 LEFT: End Diastole cm/sec ----- Left CCA: 9.5 ----- Left ICA: 16.4 ----- Left ECA: 0.0 VERTEBRALS (direction of flow): Right Vertebral: antegrade Left Vertebral: antegrade Rhythm: Mild arrhythmia noted HEARING SCREEN COORDINATOR NOTES: Mild heterogeneous plaque in the bilateral bulbs. No elevated velocities noted. IMPRESSION: 1.Mild atherosclerotic plaque with no significant hemodynamic stenosis identified. 2. Correlate for cardiac dysrhythmia. Criteria for Assigning % of Stenosis / Diameter reduction (Estimation based on the indirect measurements of the internal carotid artery velocities (ICA PSV). 1. Normal (no stenosis)=ICA PSV < 125 cm/s: ratio < 2.0: ICA EDV<40 cm/s. 2. Less than 50% stenosis=ICA PSV < 125 cm/s: ratio < 2.0: ICA EDV<40 cm/s. 3. 50 to 69% stenosis=ICA PSV of 125 to 230 cm/s: ration 2.0 ? 4.0: ICA EDV 40-100 cm/s. 4. Greater than 70% stenosis to near occlusion= ICA PSV > 230 cm/s: ratio > 4.0: ICA EDV > 100 cm/s. 5. Near occlusion= ICA PSV velocities may be low or undetectable: variable ratio and ICA EDV. 6. Total occlusion=unable to detect flow.
[2023-03-17 10:47] LABS: INR 2.4 (<1.2)
[2023-03-17 11:40] LABS: Glucose,Whole Blood 313 mg/dL (70-110)
--- NOTE | 2023-03-17 11:54 | P.DS ---
Providers Date of admission: 03/12/23 22:28 Expected date of discharge: 03/17/23 Attending physician: Dolly Gordon MD Consults: 03/15/23 16:13 Consult Physician Routine Consulting Provider: [place] Consult Reason/Comments: Unresponsiveness with pacemaker Do you want consulting provider notified?: Yes Primary care physician: [facility] Course: Patient is a 87-year-old male with a PMH of CAD status post stent and pacemaker placement, chronic kidney disease stage IIIB, paroxysmal A. fib on Coumadin, hypertension, hyperlipidemia, type II DM, COPD, who presented to the emergency room for shortness of breath and weakness. In the emergency room had/cervical spine CT revealed moderate/severe cervical spondylosis. EKG revealed of the paced rhythm at 62 bpm. Chest x-ray revealed cardiomegaly with pulmonary venous congestion. Laboratory evaluation was remarkable for troponin 0.066, pro BNP 6340, BUN 53, creatinine 2.0 (baseline 1.6), sodium 131, and glucose 147. The patient had a T-max of 102.2F in the emergency room with SpO2 94% on room air and BP 108/53. Daughter reported frequent falls and episodes of unresponiveness that has been getting more frequent over the past week. He was bradycardiac with HR in the 50s. Echo was ordered which showed EF 35-40% with moderate and severe AV calcifications. EEG was done which showed moderate encephalpathy. Cardiology consulted, pacemaker interrogated, showed no arrythmias to account for unresponsiveness. 03/17 Patient was seen and examined. Would like to go home. PT has cleared the patient for discharge home. Carotid doppler shows minimal atherosclerosis. He does see Dr. Cao as his judge. No recent echo to compare to the Echo that was done during this admission. He is however on ACEi and beta ramin. Advised to follow up with PCP within 1-2 days and Cardiology within 1 week of discharge. Pertinent studies include Head/C-spine CT, CXR, Echo, EEG, CUS. General: non toxic, no distress, appears at stated age Derm: warm, dry Head: atraumatic, normocephalic, symmetric Eyes: EOMI, no lid lag, anicteric sclera Cardiovascular: good distal perfusion in all 4 extremities, Normal S1 S2, systolic murmur Lungs: CTA bilateral, no rhonchi, no rales , no accessory muscle use Ext: no gross muscle atrophy, no edema, no contractures Neuro: no focal neuro deficits Psych: Alert, oriented, appropriate affect Discharge Diagnosis: COVID-19 infection Unresponsiveness episodes HFrEF Moderate Elevated troponin MARCO A on chronic kidney disease Debility with multiple falls Subtherapeutic INR This complex discharge took 35 minutes to complete. Patient Condition at Discharge: Stable Plan - Discharge Summary Discharge Rx Participant: No New Discharge Prescriptions: Continue Atorvastatin [Lipitor] 80 mg PO HS Ferrous Sulfate [Iron (65 MG Elemental)] 325 mg PO BID Tamsulosin [Flomax] 0.4 mg PO HS Bicalutamide [Casodex] 50 mg PO HS Warfarin [Coumadin] 5 mg PO HS Metoprolol Succinate (ER) [Toprol XL] 50 mg PO DAILY Aspirin 81 mg PO DAILY 6 Days #6 tab Furosemide [Lasix] 20 mg PO BID Potassium Chloride [K-Tab ER] 10 meq PO BID busPIRone HCl [Buspar] 10 mg PO BID Venlafaxine HCl [Effexor] 75 mg PO BID hydroCHLOROthiazide [Hydrodiuril] 25 mg PO DAILY Fluticasone Propion/Salmeterol [Wixela 100-50 Inhub] 1 puff INHALATION RT-BID Calcium Carbonate/Vitamin D3 [Calcium 600 mg-D3 20 mcg (800 unit)] 1 tab PO BID Insulin Glargine,Hum.rec.anlog [Lantus Solostar Pen] 24 units SQ HS Gabapentin [Neurontin] 300 mg PO BID #12 cap lisinopriL [Zestril] 2.5 mg PO DAILY Insulin Aspart 6 - 8 units SQ TID Amiodarone [Cordarone] 100 mg PO DAILY Albuterol Sulfate [Accuneb] 0.63 mg INHALATION RT-QID Discharge Medication List Atorvastatin [Lipitor] 80 mg PO HS 07/09/14 [History] Ferrous Sulfate [Iron (65 MG Elemental)] 325 mg PO BID 08/06/15 [History] Tamsulosin [Flomax] 0.4 mg PO HS 01/27/16 [History] Bicalutamide [Casodex] 50 mg PO HS 11/15/17 [History] Warfarin [Coumadin] 5 mg PO HS 05/01/19 [History] Fluticasone Propion/Salmeterol [Wixela 100-50 Inhub] 1 puff INHALATION RT-BID 08/12/21 [History] Metoprolol Succinate (ER) [Toprol XL] 50 mg PO DAILY 08/12/21 [History] Aspirin 81 mg PO DAILY 6 Days #6 tab 08/21/21 [Rx] Calcium Carbonate/Vitamin D3 [Calcium 600 mg-D3 20 mcg (800 unit)] 1 tab PO BID 10/29/22 [History] Furosemide [Lasix] 20 mg PO BID 10/29/22 [History] Insulin Glargine,Hum.rec.anlog [Lantus Solostar Pen] 24 units SQ HS 10/29/22 [History] Potassium Chloride [K-Tab ER] 10 meq PO BID 10/29/22 [History] Gabapentin [Neurontin] 300 mg PO BID #12 cap 12/22/22 [Rx] Albuterol Sulfate [Accuneb] 0.63 mg INHALATION RT-QID 03/12/23 [History] Amiodarone [Cordarone] 100 mg PO DAILY 03/12/23 [History] Insulin Aspart 6 - 8 units SQ TID 03/12/23 [History] Venlafaxine HCl [Effexor] 75 mg PO BID 03/12/23 [History] busPIRone HCl [Buspar] 10 mg PO BID 03/12/23 [History] hydroCHLOROthiazide [Hydrodiuril] 25 mg PO DAILY 03/12/23 [History] lisinopriL [Zestril] 2.5 mg PO DAILY 03/12/23 [History] Follow up Appointment(s)/Referral(s): [facility],Clinic [Primary Care Provider] - 1-2 days (Please call to schedule follow up appoitment) Patient Instructions/Handouts: Coronavirus Disease 2019 (COVID-19) Activity/Diet/Wound Care/Special Instructions: Diet: Cardiac, low salt, fluid restriction Discharge Disposition: HOME SELF-CARE
[2023-03-17 12:38] VITALS: BMI 33.2
--- NOTE | 2023-03-17 14:52 | P.PN ---
Subjective HISTORY OF PRESENT ILLNESS: 87-year-old with PMH of CAD status post PCI, PPM, CKD, Roxicet atrial fibrillation on warfarin, hypertension, dyslipidemia, type 2 diabetes, COPD presented to the emergency department with shortness of breath and generalized weakness. Over the last 1 week patient has been more confused and having multiple falls. He reported that he fell on Wednesday in his elbow and possibly his head. Admission ECG revealed paced rhythm with a heart rate of 62 bpm. Pacemaker interrogation reveals 98% 3 paced rhythm with 3 years of ER eye. There is no significant arrhythmias or ventricular tachycardias noticed on pacemaker interrogation. His labs showed a troponin of 0.06, BNP of 6000, BUN 53, creatinine 2. His baseline creatinine is 1.6. He was given IV fluids on admission and today his creatinine has came back to 1.6. He was also noticed to be febrile on admission. He was tested for COVID and was found to be positive 03/17/2023 Patient examined this warning. Patient is sitting up in the chair. Patient denies chest pain or pressure. He denies shortness of breath. He is on room air with oxygen saturations greater than 92%. Vital signs are stable. He remains on Coumadin. INR today 2.4. PHYSICAL EXAM: VITAL SIGNS: Reviewed. GENERAL: Well-developed in no acute distress. NECK: Supple. No JVD or thyromegaly LUNGS: Respirations even and unlabored. Lungs essentially clear to auscultation bilaterally. HEART: Regular rate and rhythm. S1 and S2 heard. EXTREMITIES: Normal range of motion. No clubbing or cyanosis. Peripheral pulses intact. 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 Please reconsult if needed. Nurse practitioner note has been reviewed by physician. Signing provider agrees with the documented findings, assessment, and plan of care. Objective - Vital Signs Vital signs: Vital Signs Temp 98.1 F 03/17/23 08:50 Pulse 64 03/17/23 08:50 Resp 16 03/17/23 08:50 BP 153/72 03/17/23 08:50 Pulse Ox 99 03/17/23 08:50 FiO2 Intake & Output 03/16/23 03/17/23 03/17/23 18:59 06:59 18:59 Intake Total 1100 10 Balance 1100 10 Weight 102.058 kg Intake: IV 10 Invasive Line 1 10 Oral 1100 Other: Voiding Method Urinal Urinal Urinal # Voids 1 - Labs CBC & Chem 7: 03/15/23 08:55 03/15/23 08:55 Labs: Abnormal Lab Results - Last 24 Hours (Table) 03/16/23 03/16/23 03/17/23 Range/Units 16:59 20:38 06:28 PT (10.0-12.5) sec INR (<1.2) POC Glucose (mg/dL) 284 H 261 H 233 H (70-110) mg/dL 03/17/23 03/17/23 Range/Units 09:39 11:38 PT 24.0 H (10.0-12.5) sec INR 2.4 H (<1.2) POC Glucose (mg/dL) 313 H (70-110) mg/dL
[2023-03-17] MEDS ORDERED: WARFARIN 2.5 MG TAB PO ONE (18:00)
--- NOTE | 2023-03-18 21:53 | CDI ---
Documentation Clarification Form Date: 03/18/2023 09:36:31 PM From: Merlyn Arreola Phone: Admit Date: 03/12/2023 10:28:00 PM Patient Name: Mario Salvador Visit Number: [id number] Discharge Date: 03/17/2023 12:38:00 PM ATTENTION: The Clinical Documentation Specialists (CDI) and [facility] Coding Staff appreciate your assistance in clarifying documentation. Please respond to the clarification below the line at the bottom and electronically sign. The CDI & [facility] Coding staff will review the response and follow-up if needed. Please note: Queries are made part of the Legal Health Record. If you have any questions, please contact the author of this message via ITS. Dr. Tanya Hernandez Your patient has the documented diagnosis of HFrEF per Progress Note 03/16. Additional information regarding the acuity of CHF is requested. History/Risk Factors: 87yo M, CAD w stent, PPM, CKD IIIB, chronic A Fib, HTN, HLD, DMII, COPD, COVID, ICM, metabolic enceph, falls Clinical Indicators: VS/Pulse OX: 95-99% BNP: 6340 Echocardiogram Results: Moderate LV systolicdysfunctionwith an ejection fraction of 3540%. Left atrialenlargement. Mildaortic stenosis Chest X Ray: Cardiomegalywith mild pulmonary vascularcongestion, andprobablysmallpleural effusions. Correlate clinically forcongestive heart failure. Treatment: Euvolemic. Patient would benefit from beta ramin and ACEi. Cardiology consulted. In your professional opinion, can you please clarify the acuity of HFrEF if known? [ ] Acute Systolic Heart Failure (reduced EF) [ x ] Chronic Systolic Heart Failure (reduced EF) [ ] Acute on Chronic Systolic Heart Failure (reduced EF) [ ] Other, please specify [ ] Unable to determine (Template Last Revised: May 2020) MTDD
== END 2023-03-17 12:38 | disposition home or self-care (01) | DRG 177 ==
LOC: EC 19:08 → 1SOBS 22:28 → 3SCARD 03-13 01:02
PROVIDERS: ADMIT Internal Medicine; ATTEND Internal Medicine
DX: U07.1 COVID-19 (principal); G93.41 Metabolic encephalopathy; N17.9 Acute kidney failure, unspecified; I13.0 Hypertensive heart and chronic kidney disease with heart failure and stage 1 through stage 4 chronic kidney disease, or unspecified chronic kidney disease; I50.22 Chronic systolic (congestive) heart failure; E11.22 Type 2 diabetes mellitus with diabetic chronic kidney disease; I35.0 Nonrheumatic aortic (valve) stenosis; N18.32 Chronic kidney disease, stage 3b; J44.9 Chronic obstructive pulmonary disease, unspecified; Z79.4 Long term (current) use of insulin; I48.0 Paroxysmal atrial fibrillation; M47.812 Spondylosis without myelopathy or radiculopathy, cervical region; Z66 Do not resuscitate; I25.10 Atherosclerotic heart disease of native coronary artery without angina pectoris; H91.90 Unspecified hearing loss, unspecified ear; E78.5 Hyperlipidemia, unspecified; T45.515A Adverse effect of anticoagulants, initial encounter; R79.1 Abnormal coagulation profile; R29.6 Repeated falls; I25.2 Old myocardial infarction; Z95.5 Presence of coronary angioplasty implant and graft; Z87.891 Personal history of nicotine dependence; Z79.82 Long term (current) use of aspirin; Z79.891 Long term (current) use of opiate analgesic; Z95.0 Presence of cardiac pacemaker; Z91.81 History of falling; Z85.46 Personal history of malignant neoplasm of prostate; Z92.3 Personal history of irradiation; Z85.828 Personal history of other malignant neoplasm of skin; Z87.19 Personal history of other diseases of the digestive system; Z98.1 Arthrodesis status; Z79.899 Other long term (current) drug therapy; Z79.51 Long term (current) use of inhaled steroids; Z91.048 Other nonmedicinal substance allergy status; Z88.6 Allergy status to analgesic agent; Z87.01 Personal history of pneumonia (recurrent)
CPT/HCPCS: 36415; 70450; 71046; 72125; 80048; 80053; 81003; 83605; 83735; 83880; 84484; 85025; 85610; 85730; 87636; 93005; 93306; 93880; 94640; 94667; 95816; 96360; 99285

== ENCOUNTER → 2023-09-30 | Outpatient (CLI) | payer OTHER ==
--- NOTE | 2023-09-30 13:28 | CT ---
EXAMINATION TYPE: CT brain wo con CT DLP: 1165 mGycm, Automated exposure control for dose reduction was used. DATE OF EXAM: 09/30/2023 1:16 PM COMPARISON: CT brain C-spine 03/12/2023 CLINICAL INDICATION:Male, 88 years old with history of F03.B11 UNSPECIFIED DEMENTIA, MODERATE, WITH A DIANNA, DEMENTIA, FORGETFULLNESS TECHNIQUE: Brain: Multiple axial CT images of the brain were obtained without IV contrast. . Coronal and sagitta l reformats reviewed. FINDINGS: Brain: Extra-axial spaces: No abnormal extra-axial fluid collections. Ventricular system: Dilatation in proportion to cerebral atrophy. Cerebral parenchyma: Cerebral atrophy. No acute intraparenchymal hemorrhage or mass effect. The malagon -white junction is well differentiated. Scattered hypoattenuating areas are seen within the white mat ter. Similar small lacunar disease within the left frontal lobe. Nonspecific bilateral basal ganglia calcifications. Cerebellum: Unremarkable. Mass effect: No evidence of midline shift. Intracranial vasculature: Atherosclerotic calcifications of the intracranial vessels. Soft tissues: Normal. Calvarium/osseous structures: No depressed skull fracture. Paranasal sinuses and mastoid air cells: Partial visualization of mucosal thickening of the inferior left maxillary sinus. There is mild mucosal thickening of the posterior left ethmoid sinus. The masto id air cells are clear. Visualized orbits: Bilateral aphakia IMPRESSION: 1. No acute intracranial process. 2. Remote lacunar injuries along with nonspecific white matter changes likely secondary to chronic mi croangiopathy.
== END | disposition home or self-care (01) ==
LOC: RADCTMAIN 12:27
PROVIDERS: ATTEND Psychiatry & Neurology Neurology
DX: F03.B11 Unspecified dementia, moderate, with agitation (principal)
CPT/HCPCS: 70450

== ENCOUNTER 2023-10-09 21:57 | Emergency (ER) | payer MEDICARE, BC ==
[2023-10-09 22:06] LABS: Glucose,Whole Blood 71 mg/dL (70-110)
[2023-10-09 22:08] VITALS: PULSE 60; TEMP 98.7
[2023-10-09 22:33] LABS: Basophils # (A) 0.1 k/uL (0-0.2); Basophils % (A) 1 %; Eosinophils # (A) 0.4 k/uL (0-0.7); Eosinophils % (A) 3 %; HCT 39.3 % (39.0-53.0); HGB 12.1 gm/dL (13.0-17.5); Lymphocytes # (A) 0.8 k/uL (1.0-4.8); Lymphocytes % (A) 6 %; MCH 28.5 pg (25.0-35.0); MCHC 30.9 g/dL (31.0-37.0); MCV 92.3 fL (80.0-100.0); Mean Platelet Volume 9.1; Monocytes % (A) 8 %; Neutrophils # (A) 9.8 k/uL (1.3-7.7); Neutrophils % (A) 81 %; Platelet Count 156 k/uL (150-450); RBC 4.26 m/uL (4.30-5.90); RDW 15.1 % (11.5-15.5); WBC 12.2 k/uL (3.8-10.6)
--- NOTE | 2023-10-09 22:33 | ED ---
Weakness HPI - General Chief complaint: Fall Stated complaint: fall, low blood sugar Time Seen by Provider: 10/09/23 22:20 Source: patient, RN notes reviewed, old records reviewed Mode of arrival: EMS Limitations: no limitations - History of Present Illness Initial comments: This is a 88-year-old male presenting today for evaluation of weakness and poss ible and noted low blood sugar. Patient has no chest pain no headache no shortness of breath no recent fevers nausea vomiting or diarrhea, patient states some increasing weakness and decreased appetite MD Complaint: generalized weakness, lack of energy -: days(s) Location: generalized Severity: mild Severity scale (1-10): 3 Consistency: intermittent Improves with: none Worsens with: none Context: history of similar Associated Symptoms: denies other symptoms - Related Data Home Medications Medication Instructions Recorded Confirmed Atorvastatin [Lipitor] 80 mg PO HS 07/09/14 03/12/23 Ferrous Sulfate [Iron (65 MG 325 mg PO BID 08/06/15 03/12/23 Elemental)] Tamsulosin [Flomax] 0.4 mg PO HS 01/27/16 03/12/23 Bicalutamide [Casodex] 50 mg PO HS 11/15/17 03/12/23 Warfarin [Coumadin] 5 mg PO HS 05/01/19 03/12/23 Fluticasone Propion/Salmeterol 1 puff INHALATION RT-BID 08/12/21 03/12/23 [Wixela 100-50 Inhub] Metoprolol Succinate (ER) [Toprol 50 mg PO DAILY 08/12/21 03/12/23 XL] Calcium Carbonate/Vitamin D3 1 tab PO BID 10/29/22 03/12/23 [Calcium 600 mg-D3 20 mcg (800 unit)] Furosemide [Lasix] 20 mg PO BID 10/29/22 03/12/23 Insulin Glargine,Hum.rec.anlog 24 units SQ HS 10/29/22 03/12/23 [Lantus Solostar Pen] Potassium Chloride [K-Tab ER] 10 meq PO BID 10/29/22 03/12/23 Albuterol Sulfate [Accuneb] 0.63 mg INHALATION RT-QID 03/12/23 03/12/23 Amiodarone [Cordarone] 100 mg PO DAILY 03/12/23 03/12/23 Insulin Aspart 6 - 8 units SQ TID 03/12/23 03/12/23 Venlafaxine HCl [Effexor] 75 mg PO BID 03/12/23 03/12/23 busPIRone HCl [Buspar] 10 mg PO BID 03/12/23 03/12/23 hydroCHLOROthiazide [Hydrodiuril] 25 mg PO DAILY 03/12/23 03/12/23 lisinopriL [Zestril] 2.5 mg PO DAILY 03/12/23 03/12/23 Previous Rx's Medication Instructions Recorded Aspirin 81 mg PO DAILY 6 Days #6 tab 08/21/21 Gabapentin [Neurontin] 300 mg PO BID #12 cap 12/22/22 Allergies Allergy/AdvReac Type Severity Reaction Status Date / Time adhesive Allergy blisters, Verified 10/09/23 22:08 skin peels ibuprofen [From Motrin] AdvReac Abdominal Verified 10/09/23 22:08 Pain Review of Systems ROS Statement: Those systems with pertinent positive or pertinent negative responses have been documented in the HPI. ROS Other: All systems not noted in ROS Statement are negative. Past Medical History Past Medical History: Atrial Fibrillation, Cancer, COPD, Diabetes Mellitus, Hearing Disorder / Deafness, Hyperlipidemia, Hypertension, Myocardial Infarction (NE), Osteoarthritis (OA), Pneumonia, Prostate Disorder, Renal Disease, Skin Disorder, Sleep Apnea/CPAP/BIPAP Additional Past Medical History / Comment(s): bowel perforation 2006, prostate CA (radiation tx 2009)., skin cancer., pacemaker, uses c-pap machine, hx of falls- recent fall and left hand has a sore and is bruised., uses walker cane & scooter ., hearing aids., blood in stool. Last Myocardial Infarction Date:: july 2021 History of Any Multi-Drug Resistant Organisms: None Reported Past Surgical History: Back Surgery, Bowel Resection, Cardiac Ablation, Heart Catheterization, Heart Catheterization With Stent, Orthopedic Surgery, Pacemaker Additional Past Surgical History / Comment(s): back surgery x2 (has cage), bowel surgery for perforation with colostomy/colostomy later reversed, nasal surgery for polyps, otoniel cataracts, arthroscopy rt knee, heart cath with stent august 2021 Past Anesthesia/Blood Transfusion Reactions: No Reported Reaction Date of Last Stent Placement:: august 2021 Type of Cardiac Device: Permanent Pacemaker Device Placement Date:: 2013 Past Psychological History: Anxiety, Depression Smoking Status: Former smoker Past Alcohol Use History: Occasional Past Drug Use History: None Reported - Past Family History Mother Family Medical History: Cancer Additional Family Medical History / Comment(s): brain cancer Sister(s) Family Medical History: Cancer Additional Family Medical History / Comment(s): breast cancer Father Family Medical History: Diabetes Mellitus, Renal Disease General Exam Limitations: no limitations General appearance: alert, in no apparent distress, anxious Head exam: Present: atraumatic, normocephalic, normal inspection Eye exam: Present: normal appearance, PERRL, EOMI. Absent: scleral icterus, conjunctival injection, periorbital swelling ENT exam: Present: normal exam, mucous membranes moist Neck exam: Present: normal inspection. Absent: tenderness, meningismus, lymphadenopathy Respiratory exam: Present: normal lung sounds bilaterally. Absent: respiratory distress, wheezes, rales, rhonchi, stridor Cardiovascular Exam: Present: regular rate, normal rhythm, normal heart sounds. Absent: systolic murmur, diastolic murmur, rubs, gallop, clicks GI/Abdominal exam: Present: soft, normal bowel sounds. Absent: distended, tenderness, guarding, rebound, rigid Extremities exam: Present: normal inspection, full ROM, normal capillary refill. Absent: tenderness, pedal edema, joint swelling, calf tenderness Back exam: Present: normal inspection Neurological exam: Present: alert, oriented X3, CN II-XII intact Psychiatric exam: Present: normal affect, normal mood Skin exam: Present: warm, dry, intact, normal color. Absent: rash Course Vital Signs 10/09/23 10/10/23 22:01 00:00 Temperature 98.7 F Pulse Rate 60 60 Respiratory 20 18 Rate Blood Pressure 103/64 123/55 O2 Sat by Pulse 99 98 Oximetry - Reevaluation(s) Reevaluation #1: Medical records reviewed Reevaluation #2: Patient symptoms unchanged Reevaluation #3: Patient informed of results questions answered Reevaluation #4: Was pt. sent in by a medical professional or institution (, PA, PEPPER P[employer]ER, urgent care, hospital, or fci...) When possible be specific @ -no Did you speak to anyone other than the patient for history (EMS, parent, family, police, friend...)? What history was obtained from this source @ -no Did you review nursing and triage notes (agree or disagree)? Why? @ -agree Are old charts reviewed (outside hosp., previous admission, EMS record, old EKG, old radiological studies, urgent care reports/EKG's, fci records)? Report findings @ -yes Differential Diagnosis (chest pain, altered mental status, abdominal pain women, abdominal pain men, vaginal bleeding, weakness, fever, dyspnea, syncope, headache, dizziness, GI bleed, back pain, seizure, CVA, palpatations, mental health, musculoskeletal)? @ -prior EKG interpreted by me (3pts min.). @ -yes X-rays interpreted by me (1pt min.). @ -no CT interpreted by me (1pt min.). @ -no U/S interpreted by me (1pt. min.). @ -no What testing was considered but not performed or refused? (CT, X-rays, U/S, labs)? Why? @ -none What meds were considered but not given or refused? Why? @ -none Did you discuss the management of the patient with other professionals (professionals i.e. , PA, [employer], lab, RT, psych nurse, healthcare social worker, skoog patching machine operator, teacher, marketing and communications officer, wrapper caser)? Give summary @ -no Was smoking cessation discussed for >3mins.? @ -no Was critical care preformed (if so, how long)? @ -no Were there social determinants of health that impacted care today? How? (Homelessness, low income, unemployed, alcoholism, drug addiction, transportation, low edu. Level, literacy, decrease access to med. care, usp, rehab)? @ -none Was there de-escalation of care discussed even if they declined (Discuss DNR or withdrawal of care, Hospice)? DNR status @ -no What co-morbidities impacted this encounter? (DM, HTN, Smoking, COPD, CAD, Cancer, CVA, ARF, Chemo, Hep., AIDS, mental health diagnosis, sleep apnea, morbid obesity)? @ -none Was patient admitted / discharged? Hospital course, mention meds given and route, prescriptions, significant lab abnormalities, going to OR and other pertinent info. @ - 88 to the ER for evaluation of weakness low blood sugar symptoms are improved here in the ER feels well able to eat and drink patient can be discharged home Discharge Undiagnosed new problem with uncertain prognosis? @ -no Drug Therapy requiring intensive monitoring for toxicity (Heparin, Nitro, Insulin, Cardizem)? @ -no Were any procedures done? @ -no Diagnosis/symptom? @ -Weakness and hypoglycemia Acute, or Chronic, or Acute on Chronic? @ -Acute Uncomplicated (without systemic symptoms) or Complicated (systemic symptoms)? @ -Complicated Side effects of treatment? @ -no Exacerbation, Progression, or Severe Exacerbation? @ -exacerbation Poses a threat to life or bodily function? How? (Chest pain, USA, NE, pneumonia, PE, COPD, DKA, ARF, appy, cholecystitis, CVA, Diverticulitis, Homicidal, Suicidal, threat to staff... and all critical care pts) @ -yes extremes of age weakness and hypoglycemia Reevaluation #5: Differential Weakness: Hypoglycemia, shock, sepsis, hyponatremia, anemia, infection, NE, ETOH, adverse medicine reaction, overdose, stroke, this is not meant to be an all-inclusive list. EKG Findings - EKG Comments: EKG Findings:: EKG is paced 60 QRS 178 QTc 529 - EKG Results: EKG: interpreted by DALILA Medical Decision Making - Medical Decision Making 88 to the ER for evaluation of weakness low blood sugar symptoms are improved here in the ER feels well able to eat and drink patient can be discharged home - Lab Data Result diagrams: 10/09/23 22:24 10/09/23 22:24 Lab Results 10/09/23 10/09/23 10/09/23 Range/Units 22:04 22:24 22:24 WBC 12.2 H (3.8-10.6) k/uL RBC 4.26 L (4.30-5.90) m/uL Hgb 12.1 L (13.0-17.5) gm/dL Hct 39.3 (39.0-53.0) % MCV 92.3 (80.0-100.0) fL MCH 28.5 (25.0-35.0) pg MCHC 30.9 L (31.0-37.0) g/dL RDW 15.1 (11.5-15.5) % Plt Count 156 (150-450) k/uL MPV 9.1 Neutrophils % 81 % Lymphocytes % 6 % Monocytes % 8 % Eosinophils % 3 % Basophils % 1 % Neutrophils # 9.8 H (1.3-7.7) k/uL Lymphocytes # 0.8 L (1.0-4.8) k/uL Monocytes # 1.0 (0-1.0) k/uL Eosinophils # 0.4 (0-0.7) k/uL Basophils # 0.1 (0-0.2) k/uL PT 22.7 H (10.0-12.5) sec INR 2.3 H (<1.2) APTT 38.0 H (22.0-30.0) sec Sodium (137-145) mmol/L Potassium (3.5-5.1) mmol/L Chloride (98-107) mmol/L Carbon Dioxide (22-30) mmol/L Anion Gap mmol/L BUN (9-20) mg/dL Creatinine (0.66-1.25) mg/dL Est GFR (CKD-EPI)AfAm (>60 ml/min/1.73 sqM) Est GFR (CKD-EPI)NonAf (>60 ml/min/1.73 sqM) Glucose (74-99) mg/dL POC Glucose (mg/dL) 71 (70-110) mg/dL POC Glu Academic Program Specialist ID Jenna Mane Plasma Lactic Acid Fabian (0.7-2.0) mmol/L Calcium (8.4-10.2) mg/dL Phosphorus (2.5-4.5) mg/dL Magnesium (1.6-2.3) mg/dL Total Bilirubin (0.2-1.3) mg/dL AST (17-59) U/L ALT (4-49) U/L Alkaline Phosphatase (38-126) U/L Troponin I (0.000-0.034) ng/mL NT-Pro-B Natriuret Pep pg/mL Total Protein (6.3-8.2) g/dL Albumin (3.5-5.0) g/dL 10/09/23 10/09/23 10/09/23 Range/Units 22:24 22:24 22:24 WBC (3.8-10.6) k/uL RBC (4.30-5.90) m/uL Hgb (13.0-17.5) gm/dL Hct (39.0-53.0) % MCV (80.0-100.0) fL MCH (25.0-35.0) pg MCHC (31.0-37.0) g/dL RDW (11.5-15.5) % Plt Count (150-450) k/uL MPV Neutrophils % % Lymphocytes % % Monocytes % % Eosinophils % % Basophils % % Neutrophils # (1.3-7.7) k/uL Lymphocytes # (1.0-4.8) k/uL Monocytes # (0-1.0) k/uL Eosinophils # (0-0.7) k/uL Basophils # (0-0.2) k/uL PT (10.0-12.5) sec INR (<1.2) APTT (22.0-30.0) sec Sodium 137 (137-145) mmol/L Potassium 4.0 (3.5-5.1) mmol/L Chloride 106 (98-107) mmol/L Carbon Dioxide 22 (22-30) mmol/L Anion Gap 9 mmol/L BUN 33 H (9-20) mg/dL Creatinine 1.90 H (0.66-1.25) mg/dL Est GFR (CKD-EPI)AfAm 36 (>60 ml/min/1.73 sqM) Est GFR (CKD-EPI)NonAf 31 (>60 ml/min/1.73 sqM) Glucose 70 L (74-99) mg/dL POC Glucose (mg/dL) (70-110) mg/dL POC Glu Academic Program Specialist ID Plasma Lactic Acid Fabian 1.1 (0.7-2.0) mmol/L Calcium 9.2 (8.4-10.2) mg/dL Phosphorus 3.4 (2.5-4.5) mg/dL Magnesium 2.4 H (1.6-2.3) mg/dL Total Bilirubin 1.0 (0.2-1.3) mg/dL AST 38 (17-59) U/L ALT 16 (4-49) U/L Alkaline Phosphatase 108 (38-126) U/L Troponin I 0.044 H* (0.000-0.034) ng/mL NT-Pro-B Natriuret Pep 5720 pg/mL Total Protein 6.0 L (6.3-8.2) g/dL Albumin 3.8 (3.5-5.0) g/dL 10/10/23 Range/Units 00:31 WBC (3.8-10.6) k/uL RBC (4.30-5.90) m/uL Hgb (13.0-17.5) gm/dL Hct (39.0-53.0) % MCV (80.0-100.0) fL MCH (25.0-35.0) pg MCHC (31.0-37.0) g/dL RDW (11.5-15.5) % Plt Count (150-450) k/uL MPV Neutrophils % % Lymphocytes % % Monocytes % % Eosinophils % % Basophils % % Neutrophils # (1.3-7.7) k/uL Lymphocytes # (1.0-4.8) k/uL Monocytes # (0-1.0) k/uL Eosinophils # (0-0.7) k/uL Basophils # (0-0.2) k/uL PT (10.0-12.5) sec INR (<1.2) APTT (22.0-30.0) sec Sodium (137-145) mmol/L Potassium (3.5-5.1) mmol/L Chloride (98-107) mmol/L Carbon Dioxide (22-30) mmol/L Anion Gap mmol/L BUN (9-20) mg/dL Creatinine (0.66-1.25) mg/dL Est GFR (CKD-EPI)AfAm (>60 ml/min/1.73 sqM) Est GFR (CKD-EPI)NonAf (>60 ml/min/1.73 sqM) Glucose (74-99) mg/dL POC Glucose (mg/dL) 94 (70-110) mg/dL POC Glu Academic Program Specialist ID Antonietta Jenna Plasma Lactic Acid Fabian (0.7-2.0) mmol/L Calcium (8.4-10.2) mg/dL Phosphorus (2.5-4.5) mg/dL Magnesium (1.6-2.3) mg/dL Total Bilirubin (0.2-1.3) mg/dL AST (17-59) U/L ALT (4-49) U/L Alkaline Phosphatase (38-126) U/L Troponin I (0.000-0.034) ng/mL NT-Pro-B Natriuret Pep pg/mL Total Protein (6.3-8.2) g/dL Albumin (3.5-5.0) g/dL - EKG Data -: EKG Interpreted by Me (EKG is paced 60 QRS 178 QTc 529) Disposition Clinical Impression: Hypoglycemia, Weakness Disposition: HOME SELF-CARE Condition: Good Instructions (If sedation given, give patient instructions): Hypoglycemia in a Person with Diabetes (ED) Is patient prescribed a controlled substance at d/c from ED?: No Referrals: None,Stated [REFERRING] - 1-2 days Time of Disposition: 00:40
[2023-10-09] MEDS: SODIUM CHLORIDE 0.9% 1,000 ML IV STA (22:43)
[2023-10-09 22:46] LABS: ALT 16 U/L (4-49); AST 38 U/L (17-59); African American GFR (CKD) 36 (>60 ml/min/1.73 sqM); Albumin 3.8 g/dL (3.5-5.0); Alkaline Phosphatase 108 U/L (38-126); Anion Gap 9 mmol/L; Blood Urea Nitrogen 33 mg/dL (9-20); Calcium 9.2 mg/dL (8.4-10.2); Carbon Dioxide 22 mmol/L (22-30); Chloride 106 mmol/L (98-107); Glucose 70 mg/dL (74-99); Magnesium 2.4 mg/dL (1.6-2.3); Non-African American GFR(CKD) 31 (>60 ml/min/1.73 sqM); Phosphorus 3.4 mg/dL (2.5-4.5); Sodium 137 mmol/L (137-145)
[2023-10-09 22:54] LABS: NT-Pro-B-Type Natriuretic Pept 5720 pg/mL
[2023-10-09 23:49] LABS: INR 2.3 (<1.2); Prothrombin Time 22.7 sec (10.0-12.5)
[2023-10-10 00:34] LABS: Glucose,Whole Blood 94 mg/dL (70-110)
[2023-10-10 00:36] VITALS: BP 123/55; RESP 18
== END 2023-10-10 01:10 | disposition home or self-care (01) ==
LOC: EC 21:57
DX: E11.649 Type 2 diabetes mellitus with hypoglycemia without coma (principal); R53.1 Weakness; Z87.891 Personal history of nicotine dependence; Z91.048 Other nonmedicinal substance allergy status; Z88.6 Allergy status to analgesic agent
CPT/HCPCS: 36415; 80053; 83605; 83735; 83880; 84100; 84484; 85025; 85610; 85730; 93005; 96360; 99284

== ENCOUNTER 2023-12-03 06:39 | Emergency (ER) | payer MEDICARE, BC ==
[2023-12-03] MEDS ORDERED: DIPH,PERTUS(ACELL)TETVAC-LF 0.5 ML VIAL IM ONE (07:31)
== END 2023-12-03 11:59 | disposition home or self-care (01) ==
LOC: EC 06:39
CPT/HCPCS: 90715; 99282

== ENCOUNTER 2024-06-11 15:26 | Emergency (ER) | payer MEDICARE, BC, OTHER ==
[2024-06-11 15:38] VITALS: PULSE 60; TEMP 97.9
--- NOTE | 2024-06-11 16:35 | ED ---
Recheck HPI - General Chief Complaint: Recheck/Abnormal Lab/Rx Stated Complaint: blood in stool Time Seen by Provider: 06/11/24 16:31 Source: patient, EMS, RN notes reviewed Mode of arrival: EMS Limitations: no limitations - History of Present Illness Initial Comments: 89-year-old male with history of prostate cancer presenting with daughter from halfway from hematuria x 3 hours. Patient states he had 2 episodes of passing large blood clots from the penis. Denies difficulty urinating, urinary frequency. He does endorse intermittent penile pain over the past week however he is currently asymptomatic. He takes warfarin. States the same thing happened last year and was attributed to bladder changes after prostate radiation. States he also had a urinary tract infection at this time. - Related Data Home Medications Medication Instructions Recorded Confirmed Atorvastatin [Lipitor] 80 mg PO HS 07/09/14 03/12/23 Ferrous Sulfate [Iron (65 MG 325 mg PO BID 08/06/15 03/12/23 Elemental)] Tamsulosin [Flomax] 0.4 mg PO HS 01/27/16 03/12/23 Bicalutamide [Casodex] 50 mg PO HS 11/15/17 03/12/23 Warfarin [Coumadin] 5 mg PO HS 05/01/19 03/12/23 Fluticasone Propion/Salmeterol 1 puff INHALATION RT-BID 08/12/21 03/12/23 [Wixela 100-50 Inhub] Metoprolol Succinate (ER) [Toprol 50 mg PO DAILY 08/12/21 03/12/23 XL] Calcium Carbonate/Vitamin D3 1 tab PO BID 10/29/22 03/12/23 [Calcium 600 mg-D3 20 mcg (800 unit)] Furosemide [Lasix] 20 mg PO BID 10/29/22 03/12/23 Insulin Glargine,Hum.rec.anlog 24 units SQ HS 10/29/22 03/12/23 [Lantus Solostar Pen] Potassium Chloride [K-Tab ER] 10 meq PO BID 10/29/22 03/12/23 Albuterol Sulfate [Accuneb] 0.63 mg INHALATION RT-QID 03/12/23 03/12/23 Amiodarone [Cordarone] 100 mg PO DAILY 03/12/23 03/12/23 Insulin Aspart 6 - 8 units SQ TID 03/12/23 03/12/23 Venlafaxine HCl [Effexor] 75 mg PO BID 03/12/23 03/12/23 busPIRone HCl [Buspar] 10 mg PO BID 03/12/23 03/12/23 hydroCHLOROthiazide [Hydrodiuril] 25 mg PO DAILY 03/12/23 03/12/23 lisinopriL [Zestril] 2.5 mg PO DAILY 03/12/23 03/12/23 Previous Rx's Medication Instructions Recorded Aspirin 81 mg PO DAILY 6 Days #6 tab 08/21/21 Gabapentin [Neurontin] 300 mg PO BID #12 cap 12/22/22 Cephalexin [Keflex] 500 mg PO Q12HR 7 Days #14 cap 06/11/24 Allergies Allergy/AdvReac Type Severity Reaction Status Date / Time adhesive Allergy blisters, Verified 10/09/23 22:08 skin peels ibuprofen [From Motrin] AdvReac Abdominal Verified 10/09/23 22:08 Pain Review of Systems ROS Statement: Those systems with pertinent positive or pertinent negative responses have been documented in the HPI. ROS Other: All systems not noted in ROS Statement are negative. Past Medical History Past Medical History: Atrial Fibrillation, Cancer, COPD, Diabetes Mellitus, Hearing Disorder / Deafness, Hyperlipidemia, Hypertension, Myocardial Infarction (MD), Osteoarthritis (OA), Pneumonia, Prostate Disorder, Renal Disease, Skin Disorder, Sleep Apnea/CPAP/BIPAP Additional Past Medical History / Comment(s): bowel perforation 2006, prostate CA (radiation tx 2009)., skin cancer., pacemaker, uses c-pap machine, hx of falls- recent fall and left hand has a sore and is bruised., uses walker cane & scooter ., hearing aids., blood in stool. Last Myocardial Infarction Date:: july 2021 History of Any Multi-Drug Resistant Organisms: None Reported Past Surgical History: Back Surgery, Bowel Resection, Cardiac Ablation, Heart Catheterization, Heart Catheterization With Stent, Orthopedic Surgery, Pacemaker Additional Past Surgical History / Comment(s): back surgery x2 (has cage), bowel surgery for perforation with colostomy/colostomy later reversed, nasal surgery for polyps, otoniel cataracts, arthroscopy rt knee, heart cath with stent august 2021 Past Anesthesia/Blood Transfusion Reactions: No Reported Reaction Date of Last Stent Placement:: august 2021 Type of Cardiac Device: Permanent Pacemaker Device Placement Date:: 2013 Past Psychological History: Anxiety, Depression Smoking Status: Former smoker Past Alcohol Use History: None Reported Past Drug Use History: None Reported - Past Family History Mother Family Medical History: Cancer Additional Family Medical History / Comment(s): brain cancer Sister(s) Family Medical History: Cancer Additional Family Medical History / Comment(s): breast cancer Father Family Medical History: Diabetes Mellitus, Renal Disease General Exam Limitations: no limitations General appearance: alert, in no apparent distress Head exam: Present: atraumatic, normocephalic, normal inspection GI/Abdominal exam: Present: soft, normal bowel sounds. Absent: distended, tenderness, guarding, rebound, rigid exam: Present: normal inspection (PETER Noriega present for examination. No gross hematuria visible. No penile changes.). Absent: scrotal swelling Course Vital Signs 06/11/24 06/11/24 15:35 18:05 Temperature 97.9 F Pulse Rate 60 60 Respiratory 10 L 20 Rate Blood Pressure 152/72 140/60 O2 Sat by Pulse 100 100 Oximetry Medical Decision Making - Medical Decision Making Was pt. sent in by a medical professional or institution (, PA, FACILITY REHAB DIRECTOR, urgent care, hospital, or halfway...) When possible be specific @ -No Did you speak to anyone other than the patient for history (EMS, parent, family, police, friend...)? What history was obtained from this source @ -Daughter supplemented history Did you review nursing and triage notes (agree or disagree)? Why? @ -I disagree, patient is complaining of hematuria, not GI bleeding Were old charts reviewed (outside hosp., previous admission, EMS record, old EKG, old radiological studies, urgent care reports/EKG's, halfway records)? Report findings @ -No old charts were reviewed Differential Diagnosis (chest pain, altered mental status, abdominal pain women, abdominal pain men, vaginal bleeding, weakness, fever, dyspnea, syncope, headache, dizziness, GI bleed, back pain, seizure, CVA, palpatations, mental health, musculoskeletal)? @ -Hematuria, bladder cancer, urinary tract infection, kidney stone, urinary retention EKG interpreted by me (3pts min.). @ -None X-rays interpreted by me (1pt min.). @ -None done CT interpreted by me (1pt min.). @ -None done U/S interpreted by me (1pt. min.). @ -None done What testing was considered but not performed or refused? (CT, X-rays, U/S, labs)? Why? @ -None What meds were considered but not given or refused? Why? @ -None Did you discuss the management of the patient with other professionals (pr ofessionals i.e. , PA, FACILITY REHAB DIRECTOR, lab, RT, psych nurse, social studies teacher, school janitor, teacher, bank operations officer, dependency case manager)? Give summary @ -No Was smoking cessation discussed for >3mins.? @ -No Was critical care preformed (if so, how long)? @ -No Were there social determinants of health that impacted care today? How? (Homelessness, low income, unemployed, alcoholism, drug addiction, transportation, low edu. Level, literacy, decrease access to med. care, correction, rehab)? @ -No Was there de-escalation of care discussed even if they declined (Discuss DNR or withdrawal of care, Hospice)? DNR status @ -No What co-morbidities impacted this encounter? (DM, HTN, Smoking, COPD, CAD, Cancer, CVA, ARF, Chemo, Hep., AIDS, mental health diagnosis, sleep apnea, morbid obesity)? @ -None Was patient admitted / discharged? Hospital course, mention meds given and route, prescriptions, significant lab abnormalities, going to OR and other pertinent info. @ -Discharge. 89-year-old male presenting for 2 episodes of hematuria. Patient has had this previously and was attributed to urinary tract infection. Patient is currently asymptomatic. No gross hematuria noted on physical examination. Lab work remarkable for elevated INR 5.6, hemoglobin 11.9 comparable to baseline, BUN 21 creatinine 1.30 improved from baseline. After urination, bladder scan 329. Therefore Vega catheter was placed. Urinalysis revealed 4+ glucose large amount of white blood cells and red blood cells highly indicative of urinary tract infection. Vega catheter draining properly with no blood clots. Patient was provided with oral dose of vitamin K due to elevated INR and advised to hold next warfarin dose. Prescribed outpatient course of Keflex for urinary tract infection. Urology referral given. Appropriate return precautio ns and follow-up care discussed. Case was discussed with the ED attending Dr. Lopes. Undiagnosed new problem with uncertain prognosis? @ -No Drug Therapy requiring intensive monitoring for toxicity (Heparin, Nitro, Insulin, Cardizem)? @ -No Were any procedures done? @ -No Diagnosis/symptom? @ -Urinary tract infection Acute, or Chronic, or Acute on Chronic? @ -Acute Uncomplicated (without systemic symptoms) or Complicated (systemic symptoms)? @ -Uncomplicated Side effects of treatment? @ -No Exacerbation, Progression, or Severe Exacerbation? @ -No Poses a threat to life or bodily function? How? (Chest pain, USA, MD, pneumonia, PE, COPD, DKA, ARF, appy, cholecystitis, CVA, Diverticulitis, Homicidal, Suicidal, threat to staff... and all critical care pts) @ -No - Lab Data Result diagrams: 06/11/24 16:33 06/11/24 16:33 Lab Results 06/11/24 06/11/24 06/11/24 Range/Units 16:33 16:33 16:33 WBC 6.3 (3.8-10.6) k/uL RBC 4.21 L (4.30-5.90) m/uL Hgb 11.9 L (13.0-17.5) gm/dL Hct 37.7 L (39.0-53.0) % MCV 89.4 (80.0-100.0) fL MCH 28.3 (25.0-35.0) pg MCHC 31.6 (31.0-37.0) g/dL RDW 14.9 (11.5-15.5) % Plt Count 248 (150-450) k/uL MPV 10.8 Neutrophils % 68 % Lymphocytes % 17 % Monocytes % 8 % Eosinophils % 4 % Basophils % 1 % Neutrophils # 4.3 (1.3-7.7) k/uL Lymphocytes # 1.1 (1.0-4.8) k/uL Monocytes # 0.5 (0-1.0) k/uL Eosinophils # 0.3 (0-0.7) k/uL Basophils # 0.0 (0-0.2) k/uL Hypochromasia Slight PT 55.3 H (10.0-12.5) sec INR 5.6 H* (<1.2) APTT 45.8 H (22.0-30.0) sec Sodium 137 (137-145) mmol/L Potassium 4.2 (3.5-5.1) mmol/L Chloride 102 (98-107) mmol/L Carbon Dioxide 25 (22-30) mmol/L Anion Gap 10 mmol/L BUN 21 H (9-20) mg/dL Creatinine 1.30 H (0.66-1.25) mg/dL Est GFR (CKD-EPI)AfAm 57 (>60 ml/min/1.73 sqM) Est GFR (CKD-EPI)NonAf 49 (>60 ml/min/1.73 sqM) Glucose 129 H (74-99) mg/dL Calcium 9.0 (8.4-10.2) mg/dL Total Bilirubin 0.5 (0.2-1.3) mg/dL AST 23 (17-59) U/L ALT 14 (4-49) U/L Alkaline Phosphatase 106 (38-126) U/L Total Protein 6.5 (6.3-8.2) g/dL Albumin 3.8 (3.5-5.0) g/dL Urine Color Urine Appearance (Clear) Urine pH (5.0-8.0) Ur Specific [place] (1.001-1.035) Urine Protein (Negative) Urine Glucose (UA) (Negative) Urine Ketones (Negative) Urine Blood (Negative) Urine Nitrite (Negative) Urine Bilirubin (Negative) Urine Urobilinogen (<2.0) mg/dL Ur Leukocyte Esterase (Negative) Urine RBC (0-5) /hpf Urine WBC (0-5) /hpf Urine WBC Clumps (None) /hpf Ur Squamous Epith Cells (0-4) /hpf Urine Bacteria (None) /hpf Urine Mucus (None) /hpf 06/11/24 Range/Units 17:08 WBC (3.8-10.6) k/uL RBC (4.30-5.90) m/uL Hgb (13.0-17.5) gm/dL Hct (39.0-53.0) % MCV (80.0-100.0) fL MCH (25.0-35.0) pg MCHC (31.0-37.0) g/dL RDW (11.5-15.5) % Plt Count (150-450) k/uL MPV Neutrophils % % Lymphocytes % % Monocytes % % Eosinophils % % Basophils % % Neutrophils # (1.3-7.7) k/uL Lymphocytes # (1.0-4.8) k/uL Monocytes # (0-1.0) k/uL Eosinophils # (0-0.7) k/uL Basophils # (0-0.2) k/uL Hypochromasia PT (10.0-12.5) sec INR (<1.2) APTT (22.0-30.0) sec Sodium (137-145) mmol/L Potassium (3.5-5.1) mmol/L Chloride (98-107) mmol/L Carbon Dioxide (22-30) mmol/L Anion Gap mmol/L BUN (9-20) mg/dL Creatinine (0.66-1.25) mg/dL Est GFR (CKD-EPI)AfAm (>60 ml/min/1.73 sqM) Est GFR (CKD-EPI)NonAf (>60 ml/min/1.73 sqM) Glucose (74-99) mg/dL Calcium (8.4-10.2) mg/dL Total Bilirubin (0.2-1.3) mg/dL AST (17-59) U/L ALT (4-49) U/L Alkaline Phosphatase (38-126) U/L Total Protein (6.3-8.2) g/dL Albumin (3.5-5.0) g/dL Urine Color Light Yellow Urine Appearance Cloudy (Clear) Urine pH 6.5 (5.0-8.0) Ur Specific [place] 1.013 (1.001-1.035) Urine Protein Trace H (Negative) Urine Glucose (UA) 4+ H (Negative) Urine Ketones Negative (Negative) Urine Blood Large H (Negative) Urine Nitrite Negative (Negative) Urine Bilirubin Negative (Negative) Urine Urobilinogen <2.0 (<2.0) mg/dL Ur Leukocyte Esterase Large H (Negative) Urine RBC 108 H (0-5) /hpf Urine WBC >182 H (0-5) /hpf Urine WBC Clumps Few H (None) /hpf Ur Squamous Epith Cells <1 (0-4) /hpf Urine Bacteria Rare H (None) /hpf Urine Mucus Rare H (None) /hpf Disposition Clinical Impression: Urinary tract infection, Hematuria Disposition: HOME SELF-CARE Condition: Stable Instructions (If sedation given, give patient instructions): Urinary Tract Infection in Older Adults (ED) Additional Instructions: Please hold next dose of warfarin as your INR today was high at 5.6. Take Keflex twice daily for 7 days for urinary tract infection. Follow-up with Dr. Pina next week. Please return to the Emergency Department if symptoms worsen or any other concerns. Prescriptions: Cephalexin [Keflex] 500 mg PO Q12HR 7 Days #14 cap Is patient prescribed a controlled substance at d/c from ED?: No Referrals: Benito Britt DO [Primary Care Provider] - 1-2 days Joshua Ortiz MD [STAFF PHYSICIAN] - 1-2 days Time of Disposition: 18:28
[2024-06-11 16:43] LABS: Basophils % (A) 1 %; Eosinophils # (A) 0.3 k/uL (0-0.7); Eosinophils % (A) 4 %; HCT 37.7 % (39.0-53.0); HGB 11.9 gm/dL (13.0-17.5); Hypochromasia Slight; Lymphocytes # (A) 1.1 k/uL (1.0-4.8); Lymphocytes % (A) 17 %; MCH 28.3 pg (25.0-35.0); MCHC 31.6 g/dL (31.0-37.0); MCV 89.4 fL (80.0-100.0); Mean Platelet Volume 10.8; Monocytes # (A) 0.5 k/uL (0-1.0); Monocytes % (A) 8 %; Neutrophils # (A) 4.3 k/uL (1.3-7.7); Neutrophils % (A) 68 %; Platelet Count 248 k/uL (150-450); RBC 4.21 m/uL (4.30-5.90); RDW 14.9 % (11.5-15.5); WBC 6.3 k/uL (3.8-10.6)
[2024-06-11 16:51] LABS: ALT 14 U/L (4-49); AST 23 U/L (17-59); African American GFR (CKD) 57 (>60 ml/min/1.73 sqM); Albumin 3.8 g/dL (3.5-5.0); Alkaline Phosphatase 106 U/L (38-126); Anion Gap 10 mmol/L; Blood Urea Nitrogen 21 mg/dL (9-20); Carbon Dioxide 25 mmol/L (22-30); Chloride 102 mmol/L (98-107); Glucose 129 mg/dL (74-99); Non-African American GFR(CKD) 49 (>60 ml/min/1.73 sqM); Potassium 4.2 mmol/L (3.5-5.1); Sodium 137 mmol/L (137-145); Total Bilirubin 0.5 mg/dL (0.2-1.3); Total Protein 6.5 g/dL (6.3-8.2)
[2024-06-11 16:56] LABS: Partial Thromboplastin Time 45.8 sec (22.0-30.0)
[2024-06-11 16:57] LABS: INR 5.6 (<1.2); Prothrombin Time 55.3 sec (10.0-12.5)
[2024-06-11 17:26] LABS: Appearance,Urine Cloudy (Clear); Bacteria,Urine Rare /hpf; Bilirubin,Urine Negative (Negative); Blood,Urine Large (Negative); Color,Urine Light Yellow; Glucose,Urine (UA) 4+ (Negative); Ketones,Urine Negative (Negative); Leukocyte Esterase,Urine Large (Negative); Mucus,Urine Rare /hpf; Nitrite,Urine Negative (Negative); PH, Urine 6.5 (5.0-8.0); Protein,Urine Trace (Negative); RBC,Urine 108 /hpf (0-5); Specific Gravity,Urine 1.013 (1.001-1.035); Squamous Epithelial Cell,Urine <1 /hpf (0-4); Urobilinogen,Urine <2.0 mg/dL (<2.0); WBC,Urine >182 /hpf (0-5)
[2024-06-11 18:06] VITALS: RESP 20
[2024-06-11] MEDS: PHYTONADIONE ORAL 5 MG/5 ML ORAL.SYRG PO STA (18:38)
[2024-06-11] MEDS: CEPHALEXIN 500MG STARTER PACK 4 CAP BTL PO STA (18:38)
[2024-06-11 19:03] VITALS: BP 135/66
== END 2024-06-11 19:05 | disposition home or self-care (01) ==
LOC: EC 15:26
DX: N39.0 Urinary tract infection, site not specified (principal); Z87.891 Personal history of nicotine dependence; Z88.6 Allergy status to analgesic agent; Z88.8 Allergy status to other drugs, medicaments and biological substances
CPT/HCPCS: 36415; 51702; 51798; 80053; 81001; 85025; 85610; 85730; 87086; 99284

== ENCOUNTER 2024-10-14 12:54 | Observation (INO) | payer MEDICARE, BC, OTHER ==
--- NOTE | 2024-10-14 13:23 | ED ---
Abdominal Pain HPI - General Source: patient, family (), EMS, RN notes reviewed, old records reviewed Mode of arrival: EMS Limitations: no limitations <Jennifer Kraft - Last Filed: 10/15/24 06:54> <Eleanor Montoya - Last Filed: 10/15/24 21:17> - General Chief Complaint: Abdominal Pain Stated Complaint: Abd Pain Time Seen by Provider: 10/14/24 13:23 - History of Present Illness Initial Comments: 89-year-old male presented the ER via EMS for evaluation of abdominal pain. is providing majority of HPI as patient has underlying dementia. He is currently residing at [facility] given patient's ability to care for himself and dementia. Patient reports after eating dinner last night he started to experience sharp upper abdominal discomfort. Patient admits to nausea and dry heaves but denies actual emesis. He reports normal bowel movements and flatulence. He denies any recent diarrhea, fevers or chills. Denies urinary complaints. reports patient has history of bowel perforation in 2006 with resection and ostomy placement. Ostomy has since been reversed. also reports a history of prostate cancer for which patient underwent chemo and radiation. She reports since these treatments patient has had intermittent GI bleeds. He denies any current melena or hematochezia. confirms this. Patient is currently taking Eliquis given cardiac history first dose last night. Prior to patient was on warfarin last dose 10 11 24. Patient denies any dizziness, lightheadedness, chest pain, shortness of breath or other complaints. (Jennifer Kraft) - Related Data Home Medications Medication Instructions Recorded Confirmed Atorvastatin [Lipitor] 80 mg PO HS 07/09/14 10/14/24 Ferrous Sulfate [Iron (65 MG 325 mg PO BID 08/06/15 10/14/24 Elemental)] Tamsulosin [Flomax] 0.4 mg PO DAILY@0700 01/27/16 10/14/24 Bicalutamide [Casodex] 50 mg PO HS@199911/15/17 10/14/24 Metoprolol Succinate (ER) [Toprol 50 mg PO DAILY 08/12/21 10/14/24 XL] Furosemide [Lasix] 20 mg PO DAILY 10/29/22 10/14/24 Insulin Glargine,Hum.rec.anlog 24 units SQ HS 10/29/22 10/14/24 [Lantus Solostar Pen] Potassium Chloride [K-Tab ER] 10 meq PO DAILY 10/29/22 10/14/24 Venlafaxine HCl [Effexor] 75 mg PO BID 03/12/23 10/14/24 lisinopriL [Zestril] 2.5 mg PO HS 03/12/23 10/14/24 Acetaminophen Tab [Tylenol Tab] 500 mg PO Q6H PRN 10/14/24 10/14/24 Albuterol Nebulized [Ventolin 2.5 mg INHALATION 10/14/24 10/14/24 Nebulized] RT-QID@, Amiodarone [Cordarone] 100 mg PO HS@199910/14/24 10/14/24 Apixaban [Eliquis] 5 mg PO BID@0700,1600 10/14/24 10/14/24 Calcium Carbonate/Vitamin D3 1 tab PO BID 10/14/24 10/14/24 [Calcium 600 mg-Vit D3 5 mcg (200 unit)] Cyanocobalamin (Vitamin B-12) 1,000 mcg PO DAILY 10/14/24 10/14/24 [Vitamin B-12] Docusate [Colace] 100 mg PO BID 10/14/24 10/14/24 Empagliflozin [Jardiance] 10 mg PO HS@199910/14/24 10/14/24 Fluticasone/Vilanterol [Breo 1 puff INHALATION RT-DAILY 10/14/24 10/14/24 Ellipta 100-25 Mcg Inhalr] HYDROcodone/APAP 5-325MG [[place] 1 tab PO Q6H PRN 10/14/24 10/14/24 5-325] Insulin Aspart [NovoLOG Flexpen] 7 units SQ TID-W/MEALS 10/14/24 10/14/24 Melatonin 6 mg PO HS 10/14/24 10/14/24 Menthol [Biofreeze] 1 applic TOPICAL TID@,,10/14/24 10/14/24 Ofloxacin 0.3% Ophth Soln [Ocuflox 1 drop RIGHT EYE Q4H 06/28/25 06/28/25 Ophth Soln] Sennosides/Docusate Sodium [Senna 1 cap PO HS@199910/14/24 10/14/24 Plus 8.6-50 mg Softgel] busPIRone HCl [Buspar] 20 mg PO BID 10/14/24 10/14/24 Previous Rx's Medication Instructions Recorded Aspirin 81 mg PO DAILY 6 Days #6 tab 08/21/21 Gabapentin [Neurontin] 300 mg PO BID #12 cap 12/22/22 Allergies Allergy/AdvReac Type Severity Reaction Status Date / Time adhesive Allergy blisters, Verified 10/09/23 22:08 skin peels ibuprofen [From Motrin] AdvReac Abdominal Verified 10/09/23 22:08 Pain Review of Systems ROS Other: All systems not noted in ROS Statement are negative. <Jennifer Kraft - Last Filed: 10/15/24 06:54> ROS Other: All systems not noted in ROS Statement are negative. <Eleanor Montoya - Last Filed: 10/15/24 21:17> ROS Statement: Those systems with pertinent positive or pertinent negative responses have been documented in the HPI. Past Medical History Past Medical History: Atrial Fibrillation, Cancer, COPD, Diabetes Mellitus, Hearing Disorder / Deafness, Hyperlipidemia, Hypertension, Myocardial Infarction ([place]), Osteoarthritis (OA), Pneumonia, Prostate Disorder, Renal Disease, Skin Disorder, Sleep Apnea/CPAP/BIPAP Additional Past Medical History / Comment(s): bowel perforation 2006, prostate CA (radiation tx 2009)., skin cancer., pacemaker, uses c-pap machine, hx of falls- recent fall and left hand has a sore and is bruised., uses walker cane & scooter ., hearing aids., blood in stool. Last Myocardial Infarction Date:: july 2021 History of Any Multi-Drug Resistant Organisms: None Reported Past Surgical History: Back Surgery, Bowel Resection, Cardiac Ablation, Heart Catheterization, Heart Catheterization With Stent, Orthopedic Surgery, Pacemaker Additional Past Surgical History / Comment(s): back surgery x2 (has cage), bowel surgery for perforation with colostomy/colostomy later reversed, nasal surgery for polyps, otoniel cataracts, arthroscopy rt knee, heart cath with stent august 2021 Past Anesthesia/Blood Transfusion Reactions: No Reported Reaction Date of Last Stent Placement:: august 2021 Type of Cardiac Device: Permanent Pacemaker Device Placement Date:: 2014 Past Psychological History: Anxiety, Depression Smoking Status: Former smoker Past Alcohol Use History: None Reported Past Drug Use History: None Reported - Past Family History Mother Family Medical History: Cancer Additional Family Medical History / Comment(s): brain cancer Sister(s) Family Medical History: Cancer Additional Family Medical History / Comment(s): breast cancer Father Family Medical History: Diabetes Mellitus, Renal Disease <Jennifer Kraft - Last Filed: 10/15/24 06:54> General Exam Limitations: no limitations General appearance: alert, in no apparent distress Respiratory exam: Present: normal lung sounds bilaterally. Absent: respiratory distress, wheezes, rales, rhonchi, stridor Cardiovascular Exam: Present: regular rate, normal rhythm, normal heart sounds. Absent: systolic murmur, diastolic murmur, rubs, gallop, clicks GI/Abdominal exam: Present: distended, tenderness (Right upper quadrant), normal bowel sounds Neurological exam: Present: alert, CN II-XII intact Skin exam: Present: warm, dry, intact, normal color. Absent: rash <Jennifer Kraft - Last Filed: 10/15/24 06:54> Course <Jennifer Kraft - Last Filed: 10/15/24 06:54> Vital Signs 10/14/24 10/14/24 10/14/24 12:58 14:18 15:11 Temperature 98.1 F Pulse Rate 60 66 68 Respiratory 18 18 18 Rate Blood Pressure 173/84 180/86 O2 Sat by Pulse 99 96 96 Oximetry 10/14/24 10/14/24 10/14/24 16:15 18:43 19:30 Temperature 97.8 F Pulse Rate 60 60 60 Respiratory 18 18 18 Rate Blood Pressure 182/87 150/94 O2 Sat by Pulse 99 99 Oximetry 10/14/24 10/14/24 20:00 21:00 Temperature 97.9 F Pulse Rate 62 60 Respiratory 16 16 Rate Blood Pressure 166/81 164/78 O2 Sat by Pulse 98 98 Oximetry - Reevaluation(s) Reevaluation #1: 10/14/24 17:20 Patient signed out to Eleanor Montoya PA-C (Jennifer Kraft) Medical Decision Making - Lab Data Result diagrams: 10/14/24 13:27 06/28/25 13:27 - EKG Data -: EKG Interpreted by Me - Radiology Data Radiology results: report reviewed, image reviewed <Jennifer Kraft - Last Filed: 10/15/24 06:54> - Lab Data Result diagrams: 10/15/24 02:54 10/15/24 02:54 <Eleanor Montoya - Last Filed: 10/15/24 21:17> - Medical Decision Making Was pt. sent in by a medical professional or institution (, PA, CUSTOMS BROKERAGE MANAGER, urgent care, hospital, or group home...) When possible be specific @ -Sent by [facility] for evaluation of abdominal pain. Did you speak to anyone other than the patient for history (EMS, parent, family, police, friend...)? What history was obtained from this source @ -Patient's Did you review nursing and triage notes (agree or disagree)? Why? @ -I reviewed and agree with nursing and triage notes Were old charts reviewed (outside hosp., previous admission, EMS record, old EKG, old radiological studies, urgent care reports/EKG's, group home records)? Report findings @ -No old charts were reviewed Differential Diagnosis (chest pain, altered mental status, abdominal pain women, abdominal pain men, vaginal bleeding, weakness, fever, dyspnea, syncope, hea dache, dizziness, GI bleed, back pain, seizure, CVA, palpatations, mental health, musculoskeletal)? @ -Differential Abdominal Pain Men:Appendicitis, cholecystitis, diverticulosis, ischemic bowel, pancreatitis, hepatitis, UTI, gastroenteritis, AAA, incarcerated hernia, bowel obstruction, constipation, inflammatory bowel, hepatitis, peptic ulcer disease, splenic infarction, perforated viscus, testicular torsion, this is not meant to be an all-inclusive list EKG interpreted by me (3pts min.). @ -As above X-rays interpreted by me (1pt min.). @ -None done CT interpreted by me (1pt min.). @ -CT Abdo pelvis showing full surgical changes to the bowel. No evidence of bowel obstruction. Thickened circumferential bladder wall. Postsurgical changes to spine broken left L5 pedicle screw. Left adrenal nodule. Mild cardiomegaly. Severe aortic valve calcifications. Mild coronary artery calcifications U/S interpreted by me (1pt. min.). @ -None done What testing was considered but not performed or refused? (CT, X-rays, U/S, labs)? Why? @ -None What meds were considered but not given or refused? Why? @ -None Did you discuss the management of the patient with other professionals (professionals i.e. , CARLOS MANUEL, CUSTOMS BROKERAGE MANAGER, lab, RT, psych nurse, health and social care teacher, admiralty lawyer, teacher, physics technical officer, block and case maker)? Give summary @ -No Was smoking cessation discussed for >3mins.? @ -No Was critical care preformed (if so, how long)? @ -No Were there social determinants of health that impacted care today? How? (Homelessness, low income, unemployed, alcoholism, drug addiction, tr ansportation, low edu. Level, literacy, decrease access to med. care, group home, rehab)? @ -No Was there de-escalation of care discussed even if they declined (Discuss DNR or withdrawal of care, Hospice)? DNR status @ -No What co-morbidities impacted this encounter? (DM, HTN, Smoking, COPD, CAD, Cancer, CVA, ARF, Chemo, Hep., AIDS, mental health diagnosis, sleep apnea, morbid obesity)? @ -Advanced age, dementia, history of bowel resection, CAD, COPD, diabetes mellitus, hypertension, hyperlipidemia, renal disease, atrial fibrillation, pacemaker in place Was patient admitted / discharged? Hospital course, mention meds given and route, prescriptions, significant lab abnormalities, going to OR and other pertinent info. @ -89-year-old male presented the ER for evaluation of abdominal pain.Vital signs stable. Patient in no signs acute distress nontoxic-appearing. Laboratory studies obtained remarkable for leukocytosis 12.4 with a left shift. CMP unimpressive. Lactic 1.5. Elevated INR 1.3. Patient recently switched from Coumadin to Eliquis, per CT abdomen pelvis with postsurgical changes noted to bowel. No evidence of bowel obstruction. There is thickening of bladder wall concerning of cystitis. Patient provided symptomatic treatment urinalysis pending at time of signout to Eleanor Montoya PA-C pending UA and diposition. (Jennifer Kraft) I followed up on this patient and discussed the results of the studies. The patient appears to have a urinary tract infection. He will be started on antibiotics for this. Patient will be admitted to the hospital. The case was discussed with Dr. Ment[facility] was accepting of the admission. Case discussed with Dr. Payne. (Eleanor Montoya) - Lab Data Lab Results 10/14/24 10/14/24 10/14/24 Range/Units 13:27 13:27 13:27 WBC 12.45 H (4.50-10.00) 10*3/uL RBC 4.79 (4.40-5.60) 10*6/uL Hgb 13.2 (13.0-17.0) g/dL Hct 40.9 (39.6-50.0) % MCV 85.4 (80.0-97.0) fL MCH 27.6 (27.0-32.0) pg MCHC 32.3 (32.0-37.0) g/dL Plt Count 228 (140-440) 10*3/uL MPV 11.8 (9.5-12.2) fL Immature Gran % (Auto) 0.3 % Neutrophils % 87.2 % Lymphocytes % 5.5 % Monocytes % 6.3 % Eosinophils % 0.2 % Basophils % 0.5 % Immature Gran # 0.04 (0.00-0.04) 10*3/uL Neutrophils # 10.85 H (1.80-7.70) 10*3/uL Lymphocytes # 0.69 L (0.90-5.00) 10*3/uL Monocytes # 0.79 (0.20-1.00) 10*3/uL Eosinophils # 0.02 L (0.04-0.35) 10*3/uL Basophils # 0.06 (0.00-0.10) 10*3/uL PT 13.4 H (10.0-12.5) sec INR 1.3 H (<1.2) APTT 30.1 H (22.0-30.0) sec Sodium 138 (137-145) mmol/L Potassium 4.4 (3.5-5.1) mmol/L Chloride 105 (98-107) mmol/L Carbon Dioxide 23 (22-30) mmol/L Anion Gap 10 mmol/L BUN 29 H (9-20) mg/dL Creatinine 1.10 (0.66-1.25) mg/dL Est GFR (CKD-EPI)AfAm 70 (>60 ml/min/1.73 sqM) Est GFR (CKD-EPI)NonAf 60 (>60 ml/min/1.73 sqM) Glucose 188 H (74-99) mg/dL Plasma Lactic Acid Fabian (0.7-2.0) mmol/L Calcium 9.5 (8.4-10.2) mg/dL Total Bilirubin 1.0 (0.2-1.3) mg/dL AST 20 (17-59) U/L ALT 14 (4-49) U/L Alkaline Phosphatase 120 (38-126) U/L Total Protein 6.8 (6.3-8.2) g/dL Albumin 4.1 (3.5-5.0) g/dL Amylase 67 (30-110) U/L Lipase 110 (23-300) U/L Urine Color Urine Appearance (Clear) Urine pH (5.0-8.0) Ur Specific Kathleen (1.001-1.035) Urine Protein (Negative) Urine Glucose (UA) (Negative) Urine Ketones (Negative) Urine Blood (Negative) Urine Nitrite (Negative) Urine Bilirubin (Negative) Urine Urobilinogen (<2.0) mg/dL Ur Leukocyte Esterase (Negative) Urine RBC (0-5) /hpf Urine WBC (0-5) /hpf Urine WBC Clumps (None) /hpf Urine Bacteria (None) /hpf 10/14/24 10/14/24 Range/Units 13:27 16:50 WBC (4.50-10.00) 10*3/uL RBC (4.40-5.60) 10*6/uL Hgb (13.0-17.0) g/dL Hct (39.6-50.0) % MCV (80.0-97.0) fL MCH (27.0-32.0) pg MCHC (32.0-37.0) g/dL Plt Count (140-440) 10*3/uL MPV (9.5-12.2) fL Immature Gran % (Auto) % Neutrophils % % Lymphocytes % % Monocytes % % Eosinophils % % Basophils % % Immature Gran # (0.00-0.04) 10*3/uL Neutrophils # (1.80-7.70) 10*3/uL Lymphocytes # (0.90-5.00) 10*3/uL Monocytes # (0.20-1.00) 10*3/uL Eosinophils # (0.04-0.35) 10*3/uL Basophils # (0.00-0.10) 10*3/uL PT (10.0-12.5) sec INR (<1.2) APTT (22.0-30.0) sec Sodium (137-145) mmol/L Potassium (3.5-5.1) mmol/L Chloride (98-107) mmol/L Carbon Dioxide (22-30) mmol/L Anion Gap mmol/L BUN (9-20) mg/dL Creatinine (0.66-1.25) mg/dL Est GFR (CKD-EPI)AfAm (>60 ml/min/1.73 sqM) Est GFR (CKD-EPI)NonAf (>60 ml/min/1.73 sqM) Glucose (74-99) mg/dL Plasma Lactic Acid Fabian 1.5 (0.7-2.0) mmol/L Calcium (8.4-10.2) mg/dL Total Bilirubin (0.2-1.3) mg/dL AST (17-59) U/L ALT (4-49) U/L Alkaline Phosphatase (38-126) U/L Total Protein (6.3-8.2) g/dL Albumin (3.5-5.0) g/dL Amylase (30-110) U/L Lipase (23-300) U/L Urine Color Colorless Urine Appearance Turbid (Clear) Urine pH 7.5 (5.0-8.0) Ur Specific Kathleen 1.026 (1.001-1.035) Urine Protein Trace H (Negative) Urine Glucose (UA) 4+ H (Negative) Urine Ketones Negative (Negative) Urine Blood Small H (Negative) Urine Nitrite Negative (Negative) Urine Bilirubin Negative (Negative) Urine Urobilinogen <2.0 (<2.0) mg/dL Ur Leukocyte Esterase Large H (Negative) Urine RBC 54 H (0-5) /hpf Urine WBC >182 H (0-5) /hpf Urine WBC Clumps Few H (None) /hpf Urine Bacteria Occasional H (None) /hpf - EKG Data EKG Comments: EKG taken at 13: 13 showing a ventricular paced rhythm. Ventricular rate 60, QRS duration 167, QT/QTc 491/491. (Jennifer Kraft) Disposition <Jennifer Kraft - Last Filed: 10/15/24 06:54> Is patient prescribed a controlled substance at d/c from ED?: No <Eleanor Montoya - Last Filed: 10/15/24 21:17> Clinical Impression: UTI (urinary tract infection) Disposition: ADMITTED IP TO THIS HOSP Condition: Stable
[2024-10-14] MEDS: ACETAMINOPHEN TAB 325 MG TAB PO STA (13:34)
[2024-10-14 13:36] LABS: Basophils # (A) 0.06 10*3/uL (0.00-0.10); Basophils % (A) 0.5 %; Eosinophils # (A) 0.02 10*3/uL (0.04-0.35); Eosinophils % (A) 0.2 %; HCT 40.9 % (39.6-50.0); HGB 13.2 g/dL (13.0-17.0); Lymphocytes # (A) 0.69 10*3/uL (0.90-5.00); Lymphocytes % (A) 5.5 %; MCH 27.6 pg (27.0-32.0); MCHC 32.3 g/dL (32.0-37.0); MCV 85.4 fL (80.0-97.0); Monocytes # (A) 0.79 10*3/uL (0.20-1.00); Monocytes % (A) 6.3 %; Neutrophils # (A) 10.85 10*3/uL (1.80-7.70); Neutrophils % (A) 87.2 %; Platelet Count 228 10*3/uL (140-440); RBC 4.79 10*6/uL (4.40-5.60); RDW 16.8 % (11.5-14.5); WBC 12.45 10*3/uL (4.50-10.00)
[2024-10-14 13:48] LABS: INR 1.3 (<1.2); Partial Thromboplastin Time 30.1 sec (22.0-30.0); Prothrombin Time 13.4 sec (10.0-12.5)
[2024-10-14 13:50] LABS: ALT 14 U/L (4-49); AST 20 U/L (17-59); African American GFR (CKD) 70 (>60 ml/min/1.73 sqM); Albumin 4.1 g/dL (3.5-5.0); Alkaline Phosphatase 120 U/L (38-126); Amylase 67 U/L (30-110); Anion Gap 10 mmol/L; Blood Urea Nitrogen 29 mg/dL (9-20); Calcium 9.5 mg/dL (8.4-10.2); Carbon Dioxide 23 mmol/L (22-30); Chloride 105 mmol/L (98-107); Glucose 188 mg/dL (74-99); Lipase 110 U/L (23-300); Non-African American GFR(CKD) 60 (>60 ml/min/1.73 sqM); Potassium 4.4 mmol/L (3.5-5.1); Sodium 138 mmol/L (137-145); Total Protein 6.8 g/dL (6.3-8.2)
--- NOTE | 2024-10-14 15:35 | CT ---
EXAMINATION TYPE: CT abdomen pelvis w con DATE OF EXAM: 10/14/2024 3:01 PM COMPARISON: 08/12/2021. CLINICAL INDICATION: Male, 89 years old with history of abdominal pain hc resection; Pt comes in with upper abdominal pain, nausea, and vomiting. hx of perf bowel TECHNIQUE: Axial CT abdomen pelvis w con;Sagittal and coronal reformats were created on a separate w orkstation. Contrast used:80ml mL of Isovue 300 with IV Contrast, (none if empty) Oral contrast used: without Oral Contrast (none if empty) CT DLP: 1412.1 mGycm, Automated exposure control for dose reduction was used. FINDINGS: LOWER CHEST: Right posterior Bochdalek fat-containing hernia. Heart is mildly enlarged for size. Sayra re aortic valve calcifications. Moderate coronary artery calcifications. ABDOMEN LIVER: Unremarkable GALLBLADDER AND BILE DUCTS: Unremarkable. PANCREAS: Unremarkable. SPLEEN: Unremarkable. ADRENAL GLANDS: left adrenal 23 mm nodule measuring 30 Hounsfield units previously -2 Hounsfield unit s on prior CT. KIDNEYS AND URETERS: No evidence of hydronephrosis or obstructing renal calculus. The ureters are unr emarkable. PELVIS BLADDER: Circumferential wall thickening with hyperemia of the bladder lumen. REPRODUCTIVE: Posttreat ment changes of the prostate gland. ABDOMEN & PELVIS STOMACH AND BOWEL: No evidence of bowel obstruction. Postsurgical changes in the sigmoid colon. Appen boni is normal. PERITONEUM/RETROPERITONEUM: No evidence of pneumoperitoneum or free fluid. VASCULATURE: No evidence of aortic aneurysm. MUSCULOSKELETAL: No acute osseous abnormalities. Moderate disc degeneration changes are present throu ghout the thoracolumbar spine. Post surgical changes the spine. Hardware as 1 is broken on the left. Laminectomy changes throughout the lumbar spine also present. Severe degeneration changes of the left hip with subchondral sclerosis and subchondral cystic change. Mild to moderate degeneration changes with joint space narrowing and osteophyte formation. LYMPH NODES: No gross evidence for lymphadenopathy. SOFT TISSUE/ABDOMINAL WALL: Fat-containing left inguinal hernia. IMPRESSION: 1. Postsurgical changes of the bowel. No evidence for bowel obstruction. 2. Thickened circumferential bladder wall correlate with urinalysis for cystitis. 3. Post surgical changes to the spine with broken left L5 pedicle screw. The remainder of the hardwa re appears intact. 4. Left adrenal nodule compatible with lipid rich adrenal adenoma on prior CT 08/12/2021. 5. Heart is mildly enlarged for size. 6. Severe aortic valve calcifications. 7. Moderate coronary artery calcifications. [facility], , 10/14/2024 3:32 PM
[2024-10-14] MEDS: HYDROmorphone 0.5 MG/0.5 ML SYRINGE IVP STA (16:04)
[2024-10-14 17:15] LABS: Bacteria,Urine Occasional /hpf; Bilirubin,Urine Negative (Negative); Blood,Urine Small (Negative); Color,Urine Colorless; Glucose,Urine (UA) 4+ (Negative); Ketones,Urine Negative (Negative); Leukocyte Esterase,Urine Large (Negative); Nitrite,Urine Negative (Negative); PH, Urine 7.5 (5.0-8.0); Protein,Urine Trace (Negative); RBC,Urine 54 /hpf (0-5); Specific Gravity,Urine 1.026 (1.001-1.035); Urobilinogen,Urine <2.0 mg/dL (<2.0); WBC,Urine >182 /hpf (0-5)
[2024-10-14] MEDS ORDERED: ACETAMINOPHEN TAB 325 MG TAB PO PRN (18:13)
[2024-10-14] MEDS ORDERED: NALOXONE 0.4 MG/ML 1 ML VIAL IV PRN (18:13)
[2024-10-14] MEDS: SODIUM CHLORIDE 0.9% 1,000 ML IV SCH (18:41)
[2024-10-14] MEDS: HYDROmorphone 0.5 MG/0.5 ML SYRINGE IVP PRN (19:38)
[2024-10-14 22:01] LABS: Glucose,Whole Blood 201 mg/dL (70-110)
--- NOTE | 2024-10-15 01:37 | P.HPIM ---
History of Present Illness H&P Date: 10/14/24 Chief Complaint: abd pain 89-year-old male with dementia hypertension hyperlipidemia Patient is a resident at [facility] due to advanced dementia he was brought into the hospital for evaluation of abdominal pain. Unable to obtain any meaningful history from the patient due to mental status and dementia is not present at bedside. Chart review was performed Seems like the has brought him in due to concern regarding abdominal pain which started after eating dinner last night and was experiencing sharp upper abdominal discomfort along with nausea and dry heaves without vomiting. Denies any diarrhea no changes in bowel habits denies any fevers chills patient denies any urinary changes. Patient does have history of prostate cancer underwent chemo and radiation therapy. Patient takes Eliquis for A-fib which was started recently before which she was on Coumadin. review of systems Unable to obtain due to advanced dementia on exam Constitutional: No acute distress, cooperative Eyes: Anicteric sclerae, moist conjunctiva, Pupils equal round reactive to light ENMT: NC/AT Oropharynx clear, no erythema, or exudates Neck: Supple, no masses, or JVD No carotid bruits No thyromegaly Lungs: Clear to auscultation Clear to percussion Normal respiratory effort, no accessory muscle use Cardiovascular: Heart regular in rate and rhythm, Systolic murmurs, no gallops, or rubs No peripheral edema Abdominal: Soft Discomfort to palpation diffusely, no guarding, rebound or rigidity Abdomen moving with respiration Normoactive bowel sounds Extremities: No digital cyanosis No clubbing Pedal pulses intact and symmetrical Radial pulses intact and symmetrical No calf tenderness Psychiatric: Alert and oriented to person, only Neuro Muscles Strength 5/5 in all 4 extremities Sensation to light touch grossly present throughout Cranial nerves II-XII grossly intact Past Medical History Past Medical History: Atrial Fibrillation, Cancer, COPD, Diabetes Mellitus, Hearing Disorder / Deafness, Hyperlipidemia, Hypertension, Myocardial Infarction (NE), Osteoarthritis (OA), Pneumonia, Prostate Disorder, Renal Disease, Skin Disorder, Sleep Apnea/CPAP/BIPAP Additional Past Medical History / Comment(s): bowel perforation 2006, prostate CA (radiation tx 2009)., skin cancer., pacemaker, uses c-pap machine, hx of fa lls- recent fall and left hand has a sore and is bruised., uses walker cane & scooter ., hearing aids., blood in stool. Last Myocardial Infarction Date:: july 2021 History of Any Multi-Drug Resistant Organisms: None Reported Past Surgical History: Back Surgery, Bowel Resection, Cardiac Ablation, Heart Catheterization, Heart Catheterization With Stent, Orthopedic Surgery, Pacemaker Additional Past Surgical History / Comment(s): back surgery x2 (has cage), bowel surgery for perforation with colostomy/colostomy later reversed, nasal surgery for polyps, otoniel cataracts, arthroscopy rt knee, heart cath with stent august 2021 Past Anesthesia/Blood Transfusion Reactions: No Reported Reaction Date of Last Stent Placement:: august 2021 Type of Cardiac Device: Permanent Pacemaker Device Placement Date:: 2013 Past Psychological History: Anxiety, Depression Smoking Status: Former smoker Past Alcohol Use History: None Reported Past Drug Use History: None Reported - Past Family History Mother Family Medical History: Cancer Additional Family Medical History / Comment(s): brain cancer Sister(s) Family Medical History: Cancer Additional Family Medical History / Comment(s): breast cancer Father Family Medical History: Diabetes Mellitus, Renal Disease Medications and Allergies Home Medications Medication Instructions Recorded Confirmed Type Atorvastatin [Lipitor] 80 mg PO HS 07/09/14 10/14/24 History Ferrous Sulfate [Iron (65 MG 325 mg PO BID 08/06/15 10/14/24 History Elemental)] Tamsulosin [Flomax] 0.4 mg PO DAILY@0700 01/27/16 10/14/24 History Bicalutamide [Casodex] 50 mg PO HS@199911/15/17 10/14/24 History Metoprolol Succinate (ER) [Toprol 50 mg PO DAILY 08/12/21 10/14/24 History XL] Aspirin 81 mg PO DAILY 6 Days #6 tab 08/21/21 10/14/24 Rx Furosemide [Lasix] 20 mg PO DAILY 10/29/22 10/14/24 History Insulin Glargine,Hum.rec.anlog 24 units SQ HS 10/29/22 10/14/24 History [Lantus Solostar Pen] Potassium Chloride [K-Tab ER] 10 meq PO DAILY 10/29/22 10/14/24 History Gabapentin [Neurontin] 300 mg PO BID #12 cap 12/22/22 10/14/24 Rx Venlafaxine HCl [Effexor] 75 mg PO BID 03/12/23 10/14/24 History lisinopriL [Zestril] 2.5 mg PO HS 03/12/23 10/14/24 History Acetaminophen Tab [Tylenol Tab] 500 mg PO Q6H PRN 10/14/24 10/14/24 History Albuterol Nebulized [Ventolin 2.5 mg INHALATION 10/14/24 10/14/24 History Nebulized] RT-QID@,,, Amiodarone [Cordarone] 100 mg PO HS@199910/14/24 10/14/24 History Apixaban [Eliquis] 5 mg PO BID@0700,1600 10/14/24 10/14/24 History Calcium Carbonate/Vitamin D3 1 tab PO BID 10/14/24 10/14/24 History [Calcium 600 mg-Vit D3 5 mcg (200 unit)] Cyanocobalamin (Vitamin B-12) 1,000 mcg PO DAILY 10/14/24 10/14/24 History [Vitamin B-12] Docusate [Colace] 100 mg PO BID 10/14/24 10/14/24 History Empagliflozin [Jardiance] 10 mg PO HS@199910/14/24 10/14/24 History Fluticasone/Vilanterol [Breo 1 puff INHALATION RT-DAILY 10/14/24 10/14/24 History Ellipta 100-25 Mcg Inhalr] HYDROcodone/APAP 5-325MG [[place] 1 tab PO Q6H PRN 10/14/24 10/14/24 History 5-325] Insulin Aspart [NovoLOG Flexpen] 7 units SQ TID-W/MEALS 10/14/24 10/14/24 History Melatonin 6 mg PO HS 10/14/24 10/14/24 History Menthol [Biofreeze] 1 applic TOPICAL TID@,13,10/14/24 10/14/24 History Ofloxacin 0.3% Ophth Soln [Ocuflox 1 drop RIGHT EYE Q4H 10/14/24 10/14/24 History Ophth Soln] Sennosides/Docusate Sodium [Senna 1 cap PO HS@199910/14/24 10/14/24 History Plus 8.6-50 mg Softgel] busPIRone HCl [Buspar] 20 mg PO BID 10/14/24 10/14/24 History Allergies Allergy/AdvReac Type Severity Reaction Status Date / Time adhesive Allergy blisters, Verified 10/09/23 22:08 skin peels ibuprofen [From Motrin] AdvReac Abdominal Verified 10/09/23 22:08 Pain Physical Exam Vitals: Vital Signs Temp Pulse Resp BP Pulse Ox 10/14/24 21:00 97.9 F 60 16 164/78 98 10/14/24 20:00 62 16 166/81 98 10/14/24 19:30 60 18 150/94 99 10/14/24 18:43 97.8 F 60 18 182/87 99 10/14/24 16:15 60 18 10/14/24 15:11 68 18 180/86 96 10/14/24 14:18 66 18 173/84 96 10/14/24 12:58 98.1 F 60 18 99 Intake and Output 10/14/24 10/14/24 10/14/24 06:59 14:59 22:59 Other: Weight 83.915 kg Results CBC & Chem 7: 10/14/24 13:27 10/14/24 13:27 Labs: Abnormal Lab Results - Last 24 Hours (Table) 10/14/24 10/14/24 10/14/24 Range/Units 13:27 13:27 13:27 WBC 12.45 H (4.50-10.00) 10*3/uL Neutrophils # 10.85 H (1.80-7.70) 10*3/uL Lymphocytes # 0.69 L (0.90-5.00) 10*3/uL Eosinophils # 0.02 L (0.04-0.35) 10*3/uL PT 13.4 H (10.0-12.5) sec INR 1.3 H (<1.2) APTT 30.1 H (22.0-30.0) sec BUN 29 H (9-20) mg/dL Glucose 188 H (74-99) mg/dL POC Glucose (mg/dL) (70-110) mg/dL Urine Protein (Negative) Urine Glucose (UA) (Negative) Urine Blood (Negative) Ur Leukocyte Esterase (Negative) Urine RBC (0-5) /hpf Urine WBC (0-5) /hpf Urine WBC Clumps (None) /hpf Urine Bacteria (None) /hpf 10/14/24 10/14/24 Range/Units 16:50 21:59 WBC (4.50-10.00) 10*3/uL Neutrophils # (1.80-7.70) 10*3/uL Lymphocytes # (0.90-5.00) 10*3/uL Eosinophils # (0.04-0.35) 10*3/uL PT (10.0-12.5) sec INR (<1.2) APTT (22.0-30.0) sec BUN (9-20) mg/dL Glucose (74-99) mg/dL POC Glucose (mg/dL) 201 H (70-110) mg/dL Urine Protein Trace H (Negative) Urine Glucose (UA) 4+ H (Negative) Urine Blood Small H (Negative) Ur Leukocyte Esterase Large H (Negative) Urine RBC 54 H (0-5) /hpf Urine WBC >182 H (0-5) /hpf Urine WBC Clumps Few H (None) /hpf Urine Bacteria Occasional H (None) /hpf Assessment and Plan Assessment: 89-year-old male with advanced dementia was brought into the hospital due to abdominal pain discussed case with the doctor and accepted the admission for possible UTI Urinary tract infection Follow-up cultures Initiate patient on Rocephin 1 g IV piggyback daily IV fluid hydration 75 cc/h of normal saline Tylenol as needed for fever 650 mg as needed Fall precautions UA was positive for leukocyte esterases CT of the abdomen showed evidence of urinary bladder wall thickening suspicious of cystitis Chronic conditions Hypertension, dementia, hyperlipidemia, COPD, A-fib Resume home medications Blood work showed leukocytosis elevated white count 12.4 Hemoglobin unremarkable 13 Renal function unremarkable sodium 138 potassium 4.4 BUN 29 creatinine 1.1 Liver enzymes unremarkable Full code DVT prophylaxis on Eliquis for A-fib
[2024-10-15] MEDS: ACETAMINOPHEN TAB 500 MG TAB PO PRN (03:48)
[2024-10-15] MEDS: ONDANSETRON 4 MG/2 ML VIAL IVP PRN (04:09)
[2024-10-15] MEDS: APIXABAN 5 MG TAB PO SCH (06:15)
[2024-10-15] MEDS: TAMSULOSIN 0.4 MG CAP.ER.24H PO SCH (06:16)
[2024-10-15 06:17] LABS: Glucose,Whole Blood 201 mg/dL (70-110)
[2024-10-15] MEDS: ASPIRIN 81 MG PO SCH (08:14)
[2024-10-15] MEDS: GABAPENTIN 300 MG CAP PO SCH (08:14)
[2024-10-15] MEDS: METOPROLOL SUCCINATE (ER) 50 MG TAB.ER.24H PO SCH (08:14)
[2024-10-15] MEDS: DOCUSATE 100 MG CAP PO SCH (08:14)
[2024-10-15] MEDS: FUROSEMIDE 20 MG TAB PO SCH (08:14)
[2024-10-15] MEDS: SYMBICORT 80-4.5 MCG INHALER INHALATION SCH (09:16)
[2024-10-15] MEDS: ALBUTEROL NEBULIZED 2.5 MG/3 ML INHALATION SCH (09:16)
[2024-10-15 10:09] LABS: Basophils # (A) 0.06 X 10*3/uL (0.00-0.10); Basophils % (A) 0.5 %; Eosinophils # (A) 0.04 X 10*3/uL (0.04-0.35); Eosinophils % (A) 0.3 %; HCT 42.4 % (39.6-50.0); HGB 13.3 g/dL (13.0-17.0); Immature Grans, Automated 0.30 %; Lymphocytes # (A) 0.69 X 10*3/uL (0.90-5.00); Lymphocytes % (A) 5.9 %; MCH 27.4 pg (27.0-32.0); MCHC 31.4 g/dL (32.0-37.0); MCV 87.2 FL (80.0-97.0); Monocytes # (A) 0.88 X 10*3/uL (0.20-1.00); Monocytes % (A) 7.5 %; NRBC Per 100 WBC 0 X 10*3/uL (0.00-0.01); Neutrophils # (A) 10.05 X 10*3/uL (1.80-7.70); Neutrophils % (A) 85.5 %; Platelet Count 231 X 10*3/uL (140-440); RBC 4.86 X 10*6/uL (4.40-5.60); RDW 17.2 % (11.5-14.5); WBC 11.76 X 10*3/uL (4.50-10.00)
[2024-10-15] MEDS ORDERED: HYDROcodone/APAP 5-325MG 1 EACH TAB PO PRN (12:18)
[2024-10-15] MEDS ORDERED: DEXTROSE 50% SYRINGE 50 ML IVP PRN ×2 (12:20)
--- NOTE | 2024-10-15 12:24 | P.PN ---
Subjective Progress Note Date: 10/15/24 89 year old M with PMH AFib, COPD, DM, HLD, HTN, CAD, CKD, sleep apnea, prostate CA, pacemaker, h/o bowel perforation, anxiety and depression presents to the ED from [facility] due to abdominal pain. In the ED he underwent extensive evaluation. BP 173/84, HR 66, T 98.1F, RR 18, 96% on RA. CBC, Coag panel, CMP significant for WBC 12.45, PT 13.4, INR 1.3, APTT 30.1, BUN 29, glu 188. Lactic acid 1.5. Amylase 67. Lipase 110. UA large LE with 54 RBC and > [address] AP post surgical changes of the bowel, bladder wall thickening, post surgical changes of the back, left adrenal nodule, severe coronary calcifications. Patient was started on Rocephin and admitted for treatment of UTI. 10/15 Patient was seen and examined. Pleasantly confused. CBC significant for WBC 11.76. General: non toxic, no distress, appears at stated age Derm: warm, dry Head: atraumatic, normocephalic, symmetric Eyes: EOMI, no lid lag, anicteric sclera Mouth: no lip lesion, mucus membranes moist Cardiovascular: S1S2 reg, no murmur Lungs: Decreased BS bilateral, no rhonchi, no rales , no accessory muscle use Ext: no gross muscle atrophy, no edema, no contractures Neuro: no focal neuro deficits Psych: Pleasantly confused. Based on my assessment of this patient, this patient meets a high complexity level of care. UTI: Rocephin 1g IV QD. Follow UCx. AFib: Eliquis 5 mg PO BID. Amiodarone 100 mg PO QHS. Metoprolol 50 mg PO QD. COPD: Symbicort 2 INH BID. DM: Farxiga 5 mg PO QHS. Lantus 24 units QHS. ISS + Accuchecks ACHS along with hypoglycemic precautions. HTN: Lisinopril 2.5 mg PO QD. Metoprolol as above. CAD: ASA 81 mg PO QD. Lipitor 80 mg PO QHS. Prostate CA: Casodex 50 mg PO QHS. h/o bowel perforation: Docusate 100 mg PO BID. Anxiety and depression: Buspar 20 mg PO BID. Effexor 75 mg PO BID. CODE STATUS: NO CODE DVT Prophylaxis: Eliquis. GI Prophylaxis: Designated medical POA if patient is not able to make medical decisions for themselves: I have reviewed the following content management consultant notes: I have reviewed the results of the following tests: CBC. I have ordered the following tests: I have discussed the care of this patient with the following independent historian: PETER. I have independently interpreted the following test below: I have discussed the management of this patient with the following physician: Objective - Vital Signs Vital signs: Vital Signs Temp 98.4 F 10/15/24 07:25 Pulse 60 10/15/24 12:06 Resp 17 10/15/24 07:25 BP 142/74 10/15/24 07:25 Pulse Ox 98 10/15/24 07:25 FiO2 Intake & Output 10/14/24 10/15/24 10/15/24 18:59 06:59 18:59 Intake Total 200 Balance 200 Weight 83.915 kg 83.915 kg Intake: Oral 200 Other: Voiding Method Toilet Toilet Urinal Urinal Diaper Diaper Incontinent - Labs CBC & Chem 7: 10/15/24 02:54 10/14/24 13:27 Labs: Abnormal Lab Results - Last 24 Hours (Table) 10/14/24 10/14/24 10/14/24 Range/Units 13:27 13:27 13:27 WBC 12.45 H (4.50-10.00) 10*3/uL MCHC (32.0-37.0) g/dL RDW (11.5-14.5) % MPV (9.5-12.2) FL Neutrophils # 10.85 H (1.80-7.70) 10*3/uL Lymphocytes # 0.69 L (0.90-5.00) 10*3/uL Eosinophils # 0.02 L (0.04-0.35) 10*3/uL PT 13.4 H (10.0-12.5) sec INR 1.3 H (<1.2) APTT 30.1 H (22.0-30.0) sec BUN 29 H (9-20) mg/dL Glucose 188 H (74-99) mg/dL POC Glucose (mg/dL) (70-110) mg/dL Urine Protein (Negative) Urine Glucose (UA) (Negative) Urine Blood (Negative) Ur Leukocyte Esterase (Negative) Urine RBC (0-5) /hpf Urine WBC (0-5) /hpf Urine WBC Clumps (None) /hpf Urine Bacteria (None) /hpf 10/14/24 10/14/24 10/15/24 Range/Units 16:50 21:59 02:54 WBC 11.76 H (4.50-10.00) 10*3/uL MCHC 31.4 L (32.0-37.0) g/dL RDW 17.2 H (11.5-14.5) % MPV 12.8 H (9.5-12.2) FL Neutrophils # 10.05 H (1.80-7.70) 10*3/uL Lymphocytes # 0.69 L (0.90-5.00) 10*3/uL Eosinophils # (0.04-0.35) 10*3/uL PT (10.0-12.5) sec INR (<1.2) APTT (22.0-30.0) sec BUN (9-20) mg/dL Glucose (74-99) mg/dL POC Glucose (mg/dL) 201 H (70-110) mg/dL Urine Protein Trace H (Negative) Urine Glucose (UA) 4+ H (Negative) Urine Blood Small H (Negative) Ur Leukocyte Esterase Large H (Negative) Urine RBC 54 H (0-5) /hpf Urine WBC >182 H (0-5) /hpf Urine WBC Clumps Few H (None) /hpf Urine Bacteria Occasional H (None) /hpf 10/15/24 Range/Units 06:15 WBC (4.50-10.00) 10*3/uL MCHC (32.0-37.0) g/dL RDW (11.5-14.5) % MPV (9.5-12.2) FL Neutrophils # (1.80-7.70) 10*3/uL Lymphocytes # (0.90-5.00) 10*3/uL Eosinophils # (0.04-0.35) 10*3/uL PT (10.0-12.5) sec INR (<1.2) APTT (22.0-30.0) sec BUN (9-20) mg/dL Glucose (74-99) mg/dL POC Glucose (mg/dL) 201 H (70-110) mg/dL Urine Protein (Negative) Urine Glucose (UA) (Negative) Urine Blood (Negative) Ur Leukocyte Esterase (Negative) Urine RBC (0-5) /hpf Urine WBC (0-5) /hpf Urine WBC Clumps (None) /hpf Urine Bacteria (None) /hpf
[2024-10-15 13:17] LABS: Glucose,Whole Blood 151 mg/dL (70-110)
[2024-10-15] MEDS: INSULIN LISPRO (HumaLOG) 100 UNIT/ML 10 mL VL SQ SCH (13:48)
[2024-10-15] MEDS: OFLOXACIN 0.3% OPHTH DROPS 5 ML BOTTLE RIGHT EYE SCH (14:16)
[2024-10-15 14:43] LABS: BUN/Creat Ratio 21.54 Ratio (12.00-20.00); Blood Urea Nitrogen 28.0 mg/dL (9.0-27.0); Chloride 102 mmol/L (96-109); Glucose 215 mg/dL (70-110); Potassium 4.4 mmol/L (3.5-5.5); Sodium 138 mmol/L (135-145)
[2024-10-15 14:44] LABS: ALT 12 U/L (10-49); AST 19 U/L (14-35); Albumin 3.9 g/dL (3.8-4.9); Albumin/Globulin Ratio 1.86 Ratio (1.60-3.17); Alkaline Phosphatase 102 U/L (41-126); Anion Gap 16.30 mmol/L (4.00-12.00); Calcium 8.9 mg/dL (8.7-10.3); Carbon Dioxide 19.7 mmol/L (21.6-31.8); Globulin 2.1 g/dL (1.6-3.3); Total Protein 6.0 g/dL (6.2-8.2)
[2024-10-15 16:32] LABS: Glucose,Whole Blood 196 mg/dL (70-110)
[2024-10-15] MEDS: DAPAGLIFLOZIN PROPANEDIOL 5 MG TABLET PO SCH (20:13)
[2024-10-15] MEDS: AMIODARONE 100 MG TAB PO SCH (20:13)
[2024-10-15] MEDS: BICALUTAMIDE 50 MG TAB PO SCH (20:13)
[2024-10-15] MEDS: SENNOSIDES-DOCUSATE SODIUM 1 EACH TAB PO SCH (20:13)
[2024-10-15 20:26] LABS: Glucose,Whole Blood 165 mg/dL (70-110)
[2024-10-15] MEDS: MELATONIN 3 MG TABLET PO SCH (21:56)
[2024-10-15] MEDS: INSULIN GLARGINE (LANTUS) 100 UNIT/ML SYR SQ SCH (21:56)
[2024-10-15] MEDS: FERROUS SULFATE 325 MG TAB PO SCH (21:56)
[2024-10-15] MEDS: ATORVASTATIN 80 MG TAB PO SCH (21:56)
[2024-10-15] MEDS: VENLAFAXINE HCL 75 MG TAB PO SCH (21:56)
[2024-10-16 06:18] LABS: Glucose,Whole Blood 121 mg/dL (70-110)
[2024-10-16 10:20] LABS: HCT 35.7 % (39.6-50.0); HGB 11.3 g/dL (13.0-17.0); MCH 27.7 pg (27.0-32.0); MCV 87.5 fL (80.0-97.0); RBC 4.08 10*6/uL (4.40-5.60); WBC 5.72 10*3/uL (4.50-10.00)
[2024-10-16 10:21] LABS: Basophils # (A) 0.03 10*3/uL (0.00-0.10); Basophils % (A) 0.5 %; Eosinophils # (A) 0.34 10*3/uL (0.04-0.35); Eosinophils % (A) 5.9 %; Lymphocytes # (A) 0.92 10*3/uL (0.90-5.00); Lymphocytes % (A) 16.1 %; MCHC 31.7 g/dL (32.0-37.0); Monocytes # (A) 0.68 10*3/uL (0.20-1.00); Monocytes % (A) 11.9 %; Neutrophils # (A) 3.74 10*3/uL (1.80-7.70); Neutrophils % (A) 65.4 %; Platelet Count 171 10*3/uL (140-440); RDW 16.8 % (11.5-14.5)
[2024-10-16 10:47] LABS: African American GFR (CKD) 54 (>60 ml/min/1.73 sqM); Anion Gap 7 mmol/L; Blood Urea Nitrogen 32 mg/dL (9-20); Calcium 8.5 mg/dL (8.4-10.2); Carbon Dioxide 23 mmol/L (22-30); Chloride 105 mmol/L (98-107); Glucose 189 mg/dL (74-99); Non-African American GFR(CKD) 46 (>60 ml/min/1.73 sqM); Potassium 4.0 mmol/L (3.5-5.1); Sodium 135 mmol/L (137-145)
[2024-10-16 11:20] LABS: Glucose,Whole Blood 205 mg/dL (70-110)
--- NOTE | 2024-10-16 16:46 | P.PN ---
Subjective Progress Note Date: 10/16/24 Hospital Course: 89 year old M with PMH AFib, COPD, DM, HLD, HTN, CAD, CKD, sleep apnea, prostate CA, pacemaker, h/o bowel perforation, anxiety and depression [facility]. In the ED he underwent extensive evaluation. BP 173/84, HR 66, T 98.1F, RR 18, 96% on RA. CBC, Coag panel, CMP significant for WBC 12.45, PT 13.4, INR 1.3, APTT 30.1, BUN 29, glu 188. Lactic acid 1.5. Amylase 67. Lipase 110. UA large LE with 54 RBC and > [address] AP post surgical changes of the bowel, bladder wall thickening, post surgical changes of the back, left adrenal nodule, severe coronary calcifications. Patient was started on Rocephin and admitted for treatment of UTI. 10/16: Seen and examined at bedside, patient's present during exam. Patient feels significantly better, his abdominal pain has resolved. He just feels very fatigued. He is afeb. rile, normotensive, stable normal heart rate, satting well on room airNormal WBC count, hemoglobin 11.3, sodium 135, creatinine 1.36, slightly up from yesterday 1.3, urine cultures preliminary growing gram-negative bacilli, continued on ceftriaxone Pertinent positives and negatives as discussed above, a complete review of systems was performed and all other systems are negative. Vitals Signs Reviewed. General: [nontoxic], [no distress], [appears at stated age] Derm: [warm], [dry] Head: [atraumatic], [normocephalic], [symmetric] Eyes: [EOMI], [no lid lag], [anicteric sclera] Mouth: [no lip lesion], [mucus membranes moist] Cardiovascular: [S1S2 reg], [murmur] Lungs: [CTA bilateral], [no rhonchi, no rales] , [no accessory muscle use] Abdominal: [soft], [ nontender to palpation], [no guarding], [no appreciable organomegaly] Ext: [no gross muscle atrophy], [no edema], [no contractures] Neuro: [ CN II-XI grossly intact], [no focal neuro deficits] Psych: [Alert], [oriented], [appropriate affect] Assessment and Plan: UTI - Continue ceftriaxone 1 g IV daily SOT 10/15, follow-up final urine cultures, preliminary gram-negative bacilli - PT OT consulted, monitor CBC and BMP daily Paroxysmal AFib: Eliquis 5 mg PO BID. Amiodarone 100 mg PO QHS. Metoprolol 50 mg PO QD. COPD, not in acute exacerbation: Symbicort 2 INH BID. Type II DM: Farxiga 5 mg PO QHS. Lantus 24 units QHS. ISS + Accuchecks ACHS along with hypoglycemic precautions. HTN: Lisinopril 2.5 mg PO QD. Metoprolol as above. CAD: ASA 81 mg PO QD. Lipitor 80 mg PO QHS. Prostate CA: Casodex 50 mg PO QHS. h/o bowel perforation: Docusate 100 mg PO BID. Anxiety and depression: Buspar 20 mg PO BID. Effexor 75 mg PO BID. DVT ppx: Eliquis Code status: DNR/DNI Anticipated discharge place: TBD Anticipated discharge time: TBD Objective - Vital Signs Vital signs: Vital Signs Temp 97.3 F L 10/16/24 14:00 Pulse 60 10/16/24 14:00 Resp 18 10/16/24 14:00 BP 118/80 10/16/24 14:00 Pulse Ox 98 10/16/24 14:00 FiO2 Intake & Output 10/15/24 10/16/24 10/16/24 18:59 06:59 18:59 Intake Total 200 270 Balance 200 270 Intake: Oral 200 270 Other: Voiding Method Toilet Toilet Urinal Urinal Diaper Diaper Incontinent Incontinent # Voids 2 5 1 # Bowel Movements 0 1 - Labs CBC & Chem 7: 10/16/24 10:11 10/16/24 10:11 Labs: Abnormal Lab Results - Last 24 Hours (Table) 10/15/24 10/16/24 10/16/24 Range/Units 20:25 06:17 10:11 RBC 4.08 L (4.40-5.60) 10*6/uL Hgb 11.3 L (13.0-17.0) g/dL Hct 35.7 L (39.6-50.0) % MCHC 31.7 L (32.0-37.0) g/dL RDW 16.8 H (11.5-14.5) % Sodium (137-145) mmol/L BUN (9-20) mg/dL Creatinine (0.66-1.25) mg/dL Glucose (74-99) mg/dL POC Glucose (mg/dL) 165 H 121 H (70-110) mg/dL 10/16/24 10/16/24 Range/Units 10:11 11:18 RBC (4.40-5.60) 10*6/uL Hgb (13.0-17.0) g/dL Hct (39.6-50.0) % MCHC (32.0-37.0) g/dL RDW (11.5-14.5) % Sodium 135 L (137-145) mmol/L BUN 32 H (9-20) mg/dL Creatinine 1.36 H (0.66-1.25) mg/dL Glucose 189 H (74-99) mg/dL POC Glucose (mg/dL) 205 H (70-110) mg/dL Microbiology - Last 24 Hours (Table) 10/14/24 16:50 Urine Culture - Preliminary Urine,Voided Gram Neg Bacilli
[2024-10-16 20:41] LABS: Glucose,Whole Blood 362 mg/dL (70-110)
[2024-10-17 06:16] LABS: Glucose,Whole Blood 131 mg/dL (70-110)
[2024-10-17 07:16] LABS: Anion Gap 9.80 mmol/L (4.00-12.00); BUN/Creat Ratio 20.46 Ratio (12.00-20.00); Blood Urea Nitrogen 26.6 mg/dL (9.0-27.0); Calcium 8.6 mg/dL (8.7-10.3); Carbon Dioxide 22.2 mmol/L (21.6-31.8); Chloride 105 mmol/L (96-109); Glucose 154 mg/dL (70-110); Potassium 4.2 mmol/L (3.5-5.5); Sodium 137 mmol/L (135-145)
[2024-10-17 07:21] LABS: HCT 38.1 % (39.6-50.0); HGB 11.8 g/dL (13.0-17.0); MCH 27.4 pg (27.0-32.0); MCHC 31.0 g/dL (32.0-37.0); MCV 88.6 FL (80.0-97.0); NRBC Per 100 WBC 0 X 10*3/uL (0.00-0.01); Platelet Count 186 X 10*3/uL (140-440); RBC 4.30 X 10*6/uL (4.40-5.60); RDW 16.9 % (11.5-14.5); WBC 5.39 X 10*3/uL (4.50-10.00)
[2024-10-17 07:22] LABS: Basophils # (A) 0.02 X 10*3/uL (0.00-0.10); Basophils % (A) 0.4 %; Eosinophils # (A) 0.27 X 10*3/uL (0.04-0.35); Eosinophils % (A) 5.0 %; Immature Grans, Automated 0.40 %; Lymphocytes # (A) 0.80 X 10*3/uL (0.90-5.00); Lymphocytes % (A) 14.8 %; Monocytes # (A) 0.88 X 10*3/uL (0.20-1.00); Monocytes % (A) 16.3 %; Neutrophils # (A) 3.40 X 10*3/uL (1.80-7.70); Neutrophils % (A) 63.1 %
[2024-10-17 08:04] VITALS: BP 155/64; RESP 15; TEMP 97.6
[2024-10-17 11:23] LABS: Glucose,Whole Blood 207 mg/dL (70-110)
[2024-10-17 11:59] VITALS: PULSE 64
--- NOTE | 2024-10-17 13:29 | P.DS ---
Providers Date of admission: 10/14/24 18:13 Attending physician: Sergio He MD [facility] Course: Discharge Diagnosis: Hospital Course: 89 year old M with PMH AFib, COPD, DM, HLD, HTN, CAD, CKD, sleep apnea, prostate CA, pacemaker, h/o bowel perforation, anxiety and depression presents to the ED from [facility] due to abdominal pain. In the ED he underwent extensive evaluation. BP 173/84, HR 66, T 98.1F, RR 18, 96% on RA. CBC, Coag panel, CMP significant for WBC 12.45, PT 13.4, INR 1.3, APTT 30.1, BUN 29, glu 188. Lactic acid 1.5. Amylase 67. Lipase 110. UA large LE with 54 RBC and > [address] AP post surgical changes of the bowel, bladder wall thickening, post surgical changes of the back, left adrenal nodule, severe coronary calcifications. Patient was started on Rocephin and admitted for treatment of UTI. Urine cultures preliminary growing gram-negative bacilli, patient responded to ceftriaxone, will be discharged on Bactrim extended release to complete 7 days total treatment for complicated UTI, he says that he has a urologist he is following with and was recommended to see his specialist as outpatient as well as his primary care physician. No other medication changes. Patient will be discharged back to [facility] Patient seen and examined at bedside. Denies any abdominal pain, no new complaints, feels good. Vital signs reviewed and stable. General: Nontoxic, no distress, appears at stated age Derm: Warm, dry Head: Atraumatic, normocephalic, symmetric Eyes: EOMI, no lid lag, anicteric sclera Mouth: No lip lesion, mucus membranes moist Cardiovascular: S1S2 reg, murmur Lungs: CTA bilateral, no rhonchi, no rales, no accessory muscle use Abdominal: Soft, nontender to palpation, no guarding, no appreciable organomegaly Ext: No gross muscle atrophy, no edema, no contractures Neuro: CN II-XI grossly intact, no focal neuro deficits Psych: Alert, oriented, appropriate affect A total of 36 minutes of time were spent preparing this complex discharge summary. Patient was discharged on 10/17/2024. Patient Condition at Discharge: Stable Plan - Discharge Summary New Discharge Prescriptions: New Sulfamethox-Tmp 800-160Mg [Bactrim DS 800-160 mg] 1 tab PO Q12HR #8 tab Continue Atorvastatin [Lipitor] 80 mg PO HS Ferrous Sulfate [Iron (65 MG Elemental)] 325 mg PO BID Tamsulosin [Flomax] 0.4 mg PO DAILY@0700 Bicalutamide [Casodex] 50 mg PO HS@1999 Metoprolol Succinate (ER) [Toprol XL] 50 mg PO DAILY Aspirin 81 mg PO DAILY 6 Days #6 tab Furosemide [Lasix] 20 mg PO DAILY Potassium Chloride [K-Tab ER] 10 meq PO DAILY Venlafaxine HCl [Effexor] 75 mg PO BID Menthol [Biofreeze] 1 applic TOPICAL TID@,, busPIRone HCl [Buspar] 20 mg PO BID Insulin Glargine,Hum.rec.anlog [Lantus Solostar Pen] 24 units SQ HS Gabapentin [Neurontin] 300 mg PO BID #12 cap lisinopriL [Zestril] 2.5 mg PO HS Acetaminophen Tab [Tylenol] 500 mg PO Q6H PRN PRN Reason: Pain Or Fever > 100.5 HYDROcodone/APAP 5-325MG [[place] 5-325] 1 tab PO Q6H PRN PRN Reason: Pain Ofloxacin 0.3% Ophth Soln [Ocuflox Ophth Soln] 1 drop RIGHT EYE Q4H Albuterol Nebulized [Ventolin Nebulized] 2.5 mg INHALATION RT-QID@,,, Insulin Aspart [NovoLOG Flexpen] 7 units SQ TID-W/MEALS Apixaban [Eliquis] 5 mg PO BID@0700,1600 Docusate [Colace] 100 mg PO BID Calcium Carbonate/Vitamin D3 [Calcium 600 mg-Vit D3 5 mcg (200 unit)] 1 tab PO BID Sennosides/Docusate Sodium [Senna Plus 8.6-50 mg Softgel] 1 cap PO HS@2000 Melatonin 6 mg PO HS Empagliflozin [Jardiance] 10 mg PO HS@2000 Fluticasone/Vilanterol [Breo Ellipta 100-25 Mcg Inhalr] 1 puff INHALATION RT- DAILY Cyanocobalamin (Vitamin B-12) [Vitamin B-12] 1,000 mcg PO DAILY Amiodarone [Cordarone] 100 mg PO HS@1999 Discharge Medication List Atorvastatin [Lipitor] 80 mg PO HS 07/09/14 [History] Ferrous Sulfate [Iron (65 MG Elemental)] 325 mg PO BID 08/06/15 [History] Tamsulosin [Flomax] 0.4 mg PO DAILY@0700 01/27/16 [History] Bicalutamide [Casodex] 50 mg PO HS@199911/15/17 [History] Metoprolol Succinate (ER) [Toprol XL] 50 mg PO DAILY 08/12/21 [History] Aspirin 81 mg PO DAILY 6 Days #6 tab 08/21/21 [Rx] Furosemide [Lasix] 20 mg PO DAILY 10/29/22 [History] Insulin Glargine,Hum.rec.anlog [Lantus Solostar Pen] 24 units SQ HS 10/29/22 [Hi story] Potassium Chloride [K-Tab ER] 10 meq PO DAILY 10/29/22 [History] Gabapentin [Neurontin] 300 mg PO BID #12 cap 12/22/22 [Rx] Venlafaxine HCl [Effexor] 75 mg PO BID 03/12/23 [History] lisinopriL [Zestril] 2.5 mg PO HS 03/12/23 [History] Acetaminophen Tab [Tylenol] 500 mg PO Q6H PRN 10/14/24 [History] Albuterol Nebulized [Ventolin Nebulized] 2.5 mg INHALATION RT-QID@,,,10/14/24 [History] Amiodarone [Cordarone] 100 mg PO HS@199910/14/24 [History] Apixaban [Eliquis] 5 mg PO BID@0700,1600 10/14/24 [History] Calcium Carbonate/Vitamin D3 [Calcium 600 mg-Vit D3 5 mcg (200 unit)] 1 tab PO BID 10/14/24 [History] Cyanocobalamin (Vitamin B-12) [Vitamin B-12] 1,000 mcg PO DAILY 10/14/24 [History] Docusate [Colace] 100 mg PO BID 10/14/24 [History] Empagliflozin [Jardiance] 10 mg PO HS@199910/14/24 [History] Fluticasone/Vilanterol [Breo Ellipta 100-25 Mcg Inhalr] 1 puff INHALATION RT- DAILY 10/14/24 [History] HYDROcodone/APAP 5-325MG [[place] 5-325] 1 tab PO Q6H PRN 10/14/24 [History] Insulin Aspart [NovoLOG Flexpen] 7 units SQ TID-W/MEALS 10/14/24 [History] Melatonin 6 mg PO HS 10/14/24 [History] Menthol [Biofreeze] 1 applic TOPICAL TID@07,13,19 10/14/24 [History] Ofloxacin 0.3% Ophth Soln [Ocuflox Ophth Soln] 1 drop RIGHT EYE Q4H 10/14/24 [History] Sennosides/Docusate Sodium [Senna Plus 8.6-50 mg Softgel] 1 cap PO HS@199910/14/24 [History] busPIRone HCl [Buspar] 20 mg PO BID 10/14/24 [History] Sulfamethox-Tmp 800-160Mg [Bactrim DS 800-160 mg] 1 tab PO Q12HR #8 tab 10/17/24 [Rx] Follow up Appointment(s)/Referral(s): [facility] [place], [NON-STAFF] - As Needed Benito Britt DO [Primary Care Provider] - 1-2 days Activity/Diet/Wound Care/Special Instructions: Please, follow-up with your primary care physician, follow-up with your urologist regarding recurrent UTIs, please, complete total 7 days of antibiotics for treatment of your UTI. Discharge Disposition: TRANSFER TO SNF/F
== END 2024-10-17 16:14 ==
LOC: EC 12:54 → 4SSUR 18:13
PROVIDERS: ADMIT Internal Medicine; ATTEND Internal Medicine
DX: N39.0 Urinary tract infection, site not specified (principal); I12.9 Hypertensive chronic kidney disease with stage 1 through stage 4 chronic kidney disease, or unspecified chronic kidney disease; N18.9 Chronic kidney disease, unspecified; E11.22 Type 2 diabetes mellitus with diabetic chronic kidney disease; E78.5 Hyperlipidemia, unspecified; I48.0 Paroxysmal atrial fibrillation; J44.9 Chronic obstructive pulmonary disease, unspecified; I25.10 Atherosclerotic heart disease of native coronary artery without angina pectoris; F03.94 Unspecified dementia, unspecified severity, with anxiety; F03.93 Unspecified dementia, unspecified severity, with mood disturbance; F32.A Depression, unspecified; G47.30 Sleep apnea, unspecified; Z79.01 Long term (current) use of anticoagulants; Z79.84 Long term (current) use of oral hypoglycemic drugs; Z79.4 Long term (current) use of insulin; Z79.51 Long term (current) use of inhaled steroids; Z79.899 Other long term (current) drug therapy; Z88.6 Allergy status to analgesic agent; Z91.048 Other nonmedicinal substance allergy status; Z66 Do not resuscitate; Z90.49 Acquired absence of other specified parts of digestive tract; Z85.46 Personal history of malignant neoplasm of prostate; Z92.21 Personal history of antineoplastic chemotherapy; Z92.3 Personal history of irradiation; Z87.891 Personal history of nicotine dependence; Z95.0 Presence of cardiac pacemaker
CPT/HCPCS: 96361 ×4; 96365; 96366 ×2; 96375 ×2; 96376; 99285; 36415; 94640 ×6; 97162; 97166; 80053 ×2; 80048 ×2; 82150; 83605; 83690; 85025 ×4; 85610; 85730; 81001; 87086; 87077; 87186; 74177; G0378 ×4; J2405; J0696 ×3; J1171; Q9967